=== PATIENT | female | born 1990 | race Caucasian/White ===

== ENCOUNTER 2016-03-22 22:37 | Emergency (ER) | payer MEDICAID ==
[2016-03-23 01:31] VITALS: BP 124/69
[2016-03-23] MEDS ORDERED: OXYCODONE-ACETAMINOPHEN 5-325 MG TABLET PO ONE (01:34)
--- NOTE | 2016-03-23 01:35 | ER Document Report ---
ED Oral Problem - General Chief Complaint: Toothache Stated Complaint: MOUTH PAIN Time seen by provider: 01:34 Mode of Arrival: Ambulatory Information source: Patient TRAVEL OUTSIDE OF THE [place] IN LAST 30 DAYS: No - HPI Patient complains to provider of: Toothache Onset: Other - 2 days Onset: Gradual Quality of pain: Achy Severity: Moderate Pain Level: 3 Context: Recent dental extractions Associated symptoms: Dental decay, Toothache Worsened by: Cold Relieved by: Nothing Similar symptoms previously: Yes Recently seen / treated by doctor/dentist: Yes Notes: Patient is a 25-year-old female presenting to the emergency room complaining of dental pain, states she had 2 teeth pulled approximately 2 days ago by her dentist, and now feels as though she has dry sockets in at least one of the areas of concern, denies any fevers, no drainage - Related Data Allergies/Adverse Reactions: aspirin Allergy (Mild, Verified 02/29/16 12:43) Hives ibuprofen Allergy (Mild, Verified 02/29/16 12:43) Hives tramadol Allergy (Mild, Verified 02/29/16 12:43) Hives Past Medical History - General Information source: Patient - Social History Smoking Status: Current Every Day Smoker Frequency of alcohol use: None Drug Abuse: None Family History: Reviewed & Not Pertinent Endocrine Medical History: Reports: Hx Diabetes Mellitus Type 1 - Insulin- dependent Renal/ Medical History: Reports: Hx Kidney Stones. Denies: Hx Peritoneal Dialysis Past Surgical History: Reports: Hx Cholecystectomy, Hx Tubal Ligation - Immunizations Hx Diphtheria, Pertussis, Tetanus Vaccination: Yes Review of Systems - Review of Systems Constitutional: No symptoms reported EENT: Dental problem Cardiovascular: No symptoms reported Respiratory: No symptoms reported Gastrointestinal: No symptoms reported Genitourinary: No symptoms reported Female Genitourinary: No symptoms reported Musculoskeletal: No symptoms reported Skin: No symptoms reported Hematologic/Lymphatic: No symptoms reported Neurological/Psychological: No symptoms reported -: Yes All other systems reviewed and negative Physical Exam - Vital signs Vitals: Temp Pulse Resp BP Pulse Ox 98.0 F 97 18 110/69 95 03/22/16 22:45 03/22/16 22:45 03/22/16 22:45 03/22/16 22:45 03/22/16 22:45 Interpretation: Normal - Notes Notes: - General General appearance: Appears well, Alert In distress: None - HEENT Head: Normocephalic, Atraumatic Eyes: Normal Conjunctiva: Normal Extraocular movements intact: Yes Eyelashes: Normal Pupils: PERRL - Respiratory Respiratory status: No respiratory distress - Cardiovascular Rhythm: Regular - Abdominal Inspection: Normal - Back Back: Normal - Extremities General upper extremity: Normal inspection General lower extremity: Normal inspection - Neurological Neuro grossly intact: Yes Orientation: AAOx4 [place] Coma Scale Eye Opening: Spontaneous Melita Coma Scale Verbal: Oriented Melita Coma Scale Motor: Obeys Commands [place] Coma Scale Total: 15 - Psychological Associated symptoms: Normal affect, Normal mood - Skin Skin Temperature: Warm Skin Moisture: Dry Skin Color: Normal - HEENT Mouth/Lips: Caries, Other - Poor dentition diffusely Teeth diagram: 1 - Recent dental extraction, small portion of bone visible, erythema with swelling Course - Re-evaluation Re-evalutation: 03/23/16 02:55 Patient with symptoms consistent with dry socket, she has a follow-up with her dentist on Friday, she was provided with pain medication for the interim and advised to return if symptoms worsen, patient acknowledges understanding and agreement with this plan - Vital Signs Vital signs: Temp Pulse Resp BP Pulse Ox 97.8 F 92 19 124/69 98 03/23/16 01:14 03/23/16 01:14 03/23/16 01:14 03/23/16 01:14 03/23/16 01:14 Discharge - Discharge Clinical Impression: Dry socket Condition: Stable Disposition: HOME, SELF-CARE Instructions: Toothache ([facility]), Oral Narcotic Medication ([facility]) Additional Instructions: Follow up with your dentist on Friday as scheduled. Return to the emergency room if symptoms worsen in any way. Prescriptions: Oxycodone HCl/Acetaminophen [Percocet 5-325 mg Tablet] 1 - 2 tab PO ASDIR PRN # 30 tablet PRN Reason: Referrals: PRAVIN WELSH, [Primary Care Provider] - Follow up as needed
== END 2016-03-23 02:07 | disposition home or self-care (01) ==
LOC: ER 22:37
DX: M27.3 Alveolitis of jaws (principal); K08.89 Other specified disorders of teeth and supporting structures; F17.210 Nicotine dependence, cigarettes, uncomplicated
CPT/HCPCS: 99282

== ENCOUNTER 2016-03-28 21:51 | Emergency (ER) | payer MEDICAID ==
[2016-03-28 21:56] VITALS: BP 119/72
--- NOTE | 2016-03-28 21:57 | ER Document Report ---
ED Medical Screen (RME) - General Stated Complaint: ABDOMINAL PAIN Time seen by provider: 21:55 Mode of Arrival: Ambulatory Information source: Patient Notes: 25-year-old female presents to ED for mid upper abdominal pain since 7 PM with nausea no vomiting or diarrhea. Last menstrual period 03/14/2016. Patient states the only time she's ever had this pain is when her glucose was elevated she is a type I diabetic. I have greeted and performed a rapid initial assessment of this patient. A comprehensive ED assessment and evaluation of the patient, analysis of test results and completion of medical decision making process will be conducted by an additional ED providers. TRAVEL OUTSIDE OF THE [place] IN LAST 30 DAYS: No - Related Data Allergies/Adverse Reactions: aspirin Allergy (Mild, Verified 02/29/16 12:43) Hives ibuprofen Allergy (Mild, Verified 02/29/16 12:43) Hives tramadol Allergy (Mild, Verified 02/29/16 12:43) Hives Past Medical History - Social History Family history: Reviewed & Not Pertinent Endocrine Medical History: Reports: Hx Diabetes Mellitus Type 1 - Insulin- dependent Renal/ Medical History: Reports: Hx Kidney Stones. Denies: Hx Peritoneal Dialysis Past Surgical History: Reports: Hx Cholecystectomy, Hx Tubal Ligation - Immunizations Hx Diphtheria, Pertussis, Tetanus Vaccination: Yes
[2016-03-28] MEDS ORDERED: ONDANSETRON 4 MG TAB.RAPDIS PO ONE (22:00)
[2016-03-28 22:22] LABS: ABSOLUTE BASOPHILS # (AUTO) 0.1 10^3/uL (0.0-0.2); ABSOLUTE EOSINOPHILS # (AUTO) 0.3 10^3/uL (0.0-0.6); ABSOLUTE LYMPHOCYTES (AUTO) 2.7 10^3/uL (0.5-4.7); ABSOLUTE MONOCYTES (AUTO) 0.4 10^3/uL (0.1-1.4); ABSOLUTE NEUT (AUTO) 4.6 10^3/uL (1.7-8.2); BASOPHILS % (AUTO) 1.4 % (0-2); EOSINOPHILS % (AUTO) 3.6 % (0-6); HEMATOCRIT 45.1 % (36.0-47.0); HGB HCT DIFFERENCE -0.1; LYMPHOCYTES % (AUTO) 33.5 % (13-45); MEAN CORPUSCULAR HEMOGLOBIN 29.4 pg (27.0-33.4); MEAN CORPUSCULAR HGB CONC 33.3 g/dL (32.0-36.0); MEAN CORPUSCULAR VOLUME 88 fl (80-97); MONOCYTES % (AUTO) 5.1 % (3-13); RED BLOOD COUNT 5.12 10^6/uL (3.72-5.28); RED CELL DISTRIBUTION WIDTH 14.6 % (11.5-14.0); SEGMENTED NEUTROPHILS % (AUTO) 56.4 % (42-78); WHITE BLOOD COUNT 8.2 10^3/uL (4.0-10.5)
[2016-03-28 22:24] LABS: APPEARANCE,URINE SLIGHTLY-CLOUDY; BILIRUBIN,URINE NEGATIVE (NEGATIVE); GLUCOSE, URINE >=500 mg/dL (NEGATIVE); KETONES,URINE TRACE mg/dL (NEGATIVE); LEUKOCYTE ESTERASE,URINE TRACE (NEGATIVE); NITRITE,URINE NEGATIVE (NEGATIVE); PROTEIN,URINE NEGATIVE (NEGATIVE); URINE SPECIFIC GRAVITY 1.043; UROBILINOGEN,URINE NEGATIVE mg/dL (<2.0)
[2016-03-28] MEDS ORDERED: NORMAL SALINE 1000 ML 1,000 ML IV PRN (22:29)
[2016-03-28 22:35] LABS: ALANINE AMINOTRANSFERASE 30 U/L (9-52); ALKALINE PHOSPHATASE 104 U/L (38-126); ANION GAP 10 (5-19); ASPARTATE AMINO TRANSFERASE 12 U/L (14-36); BILIRUBIN,TOTAL 0.4 mg/dL (0.2-1.3); BLOOD UREA NITROGEN 10 mg/dL (7-20); CALCIUM 8.9 mg/dL (8.4-10.2); CARBON DIOXIDE 27 mmol/L (22-30); CHLORIDE 101 mmol/L (98-107); GLUCOSE 289 mg/dL (75-110); LIPASE 83.8 U/L (23-300); POTASSIUM 4.2 mmol/L (3.6-5.0); SODIUM 137.7 mmol/L (137-145)
--- NOTE | 2016-03-28 22:57 | ER Document Report ---
ED Pediatric Illness - General Chief Complaint: Abdominal Pain Stated Complaint: ABDOMINAL PAIN Mode of Arrival: Ambulatory TRAVEL OUTSIDE OF THE [place] IN LAST 30 DAYS: No - Related Data Allergies/Adverse Reactions: aspirin Allergy (Mild, Verified 02/29/16 12:43) Hives ibuprofen Allergy (Mild, Verified 02/29/16 12:43) Hives tramadol Allergy (Mild, Verified 02/29/16 12:43) Hives Past Medical History - General Information source: Patient - Social History Smoking Status: Current Every Day Smoker Frequency of alcohol use: None Drug Abuse: None Family History: Reviewed & Not Pertinent Endocrine Medical History: Reports: Hx Diabetes Mellitus Type 1 - Insulin- dependent Renal/ Medical History: Reports: Hx Kidney Stones. Denies: Hx Peritoneal Dialysis Past Surgical History: Reports: Hx Cholecystectomy, Hx Tubal Ligation - Immunizations Hx Diphtheria, Pertussis, Tetanus Vaccination: Yes Physical Exam - Vital signs Vitals: Temp Pulse Resp BP Pulse Ox 98.2 F 88 16 119/72 99 03/28/16 21:54 03/28/16 21:54 03/28/16 21:54 03/28/16 21:54 03/28/16 21:54 Course - Vital Signs Vital signs: Temp Pulse Resp BP Pulse Ox 98.2 F 88 16 119/72 99 03/28/16 21:54 03/28/16 21:54 03/28/16 21:54 03/28/16 21:54 03/28/16 21:54 - Laboratory Result Diagrams: 03/28/16 22:05 03/28/16 22:05 Laboratory results interpreted by me: 03/28/16 03/28/16 03/28/16 22:05 22:05 22:05 RDW 14.6 H Creatinine 0.50 L Glucose 289 H AST 12 L Total Protein 6.0 L Urine Glucose (UA) >=500 H Urine Ketones TRACE H Urine Blood MODERATE H Ur Leukocyte Esterase TRACE H
--- NOTE | 2016-03-28 22:58 | ER Document Report ---
ED General - General Time seen by provider: 22:30 Mode of Arrival: Ambulatory Information source: Patient TRAVEL OUTSIDE OF THE [place] IN LAST 30 DAYS: No - HPI Onset: This evening Onset/Duration: Sudden <JASMEET RICARDO - Last Filed: 03/28/16 23:45> <NATHANIELJACE ANN - Last Filed: 03/29/16 01:40> - General Chief Complaint: Abdominal Pain Stated Complaint: ABDOMINAL PAIN Notes: Patient is a 25-year-old female presents to the emergency department with complaints of hypo-blood glucose level and abdominal pain. Patient is a history of cholecystectomy and type I diabetes mellitus. Patient states that her abdominal pain was onset at 19:00 this evening. Patient states states that she gets abdominal pain when she has high blood glucose levels. Patient also has vaginal discharge which she states is not new. Patient denies any nausea, vomiting, diarrhea, or dysuria. Patient's last menstrual period was 03/14/16. Patient is allergic to aspirin, ibuprofen, and tramadol. (JASMEET RICARDO) - Related Data Allergies/Adverse Reactions: aspirin Allergy (Mild, Verified 02/29/16 12:43) Hives ibuprofen Allergy (Mild, Verified 02/29/16 12:43) Hives tramadol Allergy (Mild, Verified 02/29/16 12:43) Hives Past Medical History - General Information source: Patient - Social History Smoking Status: Current Every Day Smoker Frequency of alcohol use: None Drug Abuse: None Family History: None Endocrine Medical History: Reports: Hx Diabetes Mellitus Type 1 - Insulin- dependent Renal/ Medical History: Reports: Hx Kidney Stones Past Surgical History: Reports: Hx Cholecystectomy, Hx Tubal Ligation - Immunizations Hx Diphtheria, Pertussis, Tetanus Vaccination: Yes <JASMEET RICARDO - Last Filed: 03/28/16 23:45> Review of Systems - Review of Systems Constitutional: No symptoms reported EENT: No symptoms reported Cardiovascular: No symptoms reported Respiratory: No symptoms reported Gastrointestinal: See HPI, Abdominal pain Genitourinary: No symptoms reported Female Genitourinary: No symptoms reported Musculoskeletal: No symptoms reported Skin: No symptoms reported Hematologic/Lymphatic: No symptoms reported Neurological/Psychological: No symptoms reported -: Yes All other systems reviewed and negative <JASMEET RICARDO - Last Filed: 03/28/16 23:45> Physical Exam - Vital signs Interpretation: Normal - General General appearance: Appears well, Alert In distress: Mild - HEENT Head: Normocephalic, Atraumatic Eyes: Normal Pupils: PERRL Mucous membranes: Normal - Respiratory Respiratory status: No respiratory distress Chest status: Nontender Breath sounds: Normal Chest palpation: Normal - Cardiovascular Rhythm: Regular Heart sounds: Normal auscultation Murmur: No - Abdominal Inspection: Normal Distension: No distension Bowel sounds: Normal Tenderness: Tender - mild epigastric tenderness to palpation Organomegaly: No organomegaly - Back Back: Normal, Nontender - Extremities General upper extremity: Normal inspection, Normal ROM, Normal strength General lower extremity: Normal inspection, Normal ROM, Normal strength - Neurological Neuro grossly intact: Yes Cognition: Normal Orientation: AAOx4 [place] Coma Scale Eye Opening: Spontaneous [place] Coma Scale Verbal: Oriented Melita Coma Scale Motor: Obeys Commands [place] Coma Scale Total: 15 Speech: Normal Sensory: Normal - Psychological Associated symptoms: Normal affect, Normal mood - Skin Skin Temperature: Warm Skin Moisture: Dry <JASMEET RICARDO - Last Filed: 03/28/16 23:45> Course - Laboratory Result Diagrams: 03/28/16 22:05 03/28/16 22:05 <JASMEET RICARDO - Last Filed: 03/28/16 23:45> - Laboratory Result Diagrams: 03/28/16 22:05 03/28/16 22:05 <JACE ARMSTRONG - Last Filed: 03/29/16 01:40> - Re-evaluation Re-evalutation: 03/29/16 Patient with no evidence for surgical abdomen. Blood work within normal limits. Patient is feeling better wishes to go home. She does not want fluids or anything else for nausea. Tolerating by mouth. Stable for discharge. Return if any worsening or concerning symptoms. (JACE ARMSTRONG) - Vital Signs Vital signs: Temp Pulse Resp BP Pulse Ox 98.2 F 88 16 119/72 99 03/28/16 21:54 03/28/16 21:54 03/28/16 21:54 03/28/16 21:54 03/28/16 21:54 (JASMEET RICARDO) (JACE ARMSTRONG) - Laboratory Laboratory results interpreted by wa: 03/28/16 03/28/16 03/28/16 22:05 22:05 22:05 RDW 14.6 H Creatinine 0.50 L Glucose 289 H AST 12 L Total Protein 6.0 L Urine Glucose (UA) >=500 H Urine Ketones TRACE H Urine Blood MODERATE H Ur Leukocyte Esterase TRACE H (JASMEET RICARDO) (JACE ARMSTRONG) Discharge <JASMEET RICARDO - Last Filed: 03/28/16 23:45> <JACE ARMSTRONG - Last Filed: 03/29/16 01:40> - Discharge Clinical Impression: Hyperglycemia Abdominal pain Qualifiers: Abdominal location: upper abdomen, unspecified Qualified Code(s): R10.10 - Upper abdominal pain, unspecified Condition: Stable Disposition: HOME, SELF-CARE Instructions: Abdominal Pain ([facility]), Hyperglycemia ([facility]) Additional Instructions: Please follow-up with your doctor tomorrow. Scribe Attestation: 03/29/16 01:40 I personally performed the services described in the documentation, reviewed and edited the documentation which was dictated to the scribe in my presence, and it accurately records my words and actions. (JACE ARMSTRONG) Scribe Documentation - Scribe Written by Scribadin:: Jasmeet Ricardo 00:15 03/29/16 acting as scribe for :: Nathaniel <JASMEET RICARDO - Last Filed: 03/28/16 23:45>
== END 2016-03-28 23:35 | disposition home or self-care (01) ==
LOC: ER 21:51
DX: E10.65 Type 1 diabetes mellitus with hyperglycemia (principal); R10.10 Upper abdominal pain, unspecified; N89.8 Other specified noninflammatory disorders of vagina; F17.210 Nicotine dependence, cigarettes, uncomplicated; Z98.890 Other specified postprocedural states
CPT/HCPCS: 99284; 36415; 82962; 83690; 84703; 85025; 80053; 81001; S0119

== ENCOUNTER 2016-04-02 16:35 | Emergency (ER) | payer MEDICAID ==
--- NOTE | 2016-04-02 16:57 | ER Document Report ---
ED Medical Screen (RME) - General Chief Complaint: Abdominal Pain Stated Complaint: ABDOMINAL PAIN Time seen by provider: 16:55 Mode of Arrival: Ambulatory Information source: Patient Notes: 25-year-old female presents to ED for right flank pain for the last week. States she's had nausea but no vomiting. She has a history of kidney stones. Last menstrual period 03/14/2016. I have greeted and performed a rapid initial assessment of this patient. A comprehensive ED assessment and evaluation of the patient, analysis of test results and completion of medical decision making process will be conducted by an additional ED providers. TRAVEL OUTSIDE OF THE [place] IN LAST 30 DAYS: No - Related Data Allergies/Adverse Reactions: aspirin Allergy (Mild, Verified 02/29/16 12:43) Hives ibuprofen Allergy (Mild, Verified 02/29/16 12:43) Hives tramadol Allergy (Mild, Verified 02/29/16 12:43) Hives Past Medical History - Social History Family history: Reviewed & Not Pertinent Endocrine Medical History: Reports: Hx Diabetes Mellitus Type 1 - Insulin- dependent Renal/ Medical History: Reports: Hx Kidney Stones. Denies: Hx Peritoneal Dialysis Past Surgical History: Reports: Hx Cholecystectomy, Hx Tubal Ligation - Immunizations Hx Diphtheria, Pertussis, Tetanus Vaccination: Yes Physical Exam - Vital signs Vitals: Temp Pulse Resp BP Pulse Ox 98.0 F 112 H 18 102/81 97 04/02/16 16:52 04/02/16 16:52 04/02/16 16:52 04/02/16 16:52 04/02/16 16:52 Course - Vital Signs Vital signs: Temp Pulse Resp BP Pulse Ox 98.0 F 112 H 18 102/81 97 04/02/16 16:52 04/02/16 16:52 04/02/16 16:52 04/02/16 16:52 04/02/16 16:52
[2016-04-02] MEDS ORDERED: ONDANSETRON 4 MG TAB.RAPDIS PO ONE (17:00)
[2016-04-02 17:31] LABS: ABSOLUTE BASOPHILS # (AUTO) 0.1 10^3/uL (0.0-0.2); ABSOLUTE EOSINOPHILS # (AUTO) 0.3 10^3/uL (0.0-0.6); ABSOLUTE LYMPHOCYTES (AUTO) 2.5 10^3/uL (0.5-4.7); ABSOLUTE MONOCYTES (AUTO) 0.7 10^3/uL (0.1-1.4); BASOPHILS % (AUTO) 0.6 % (0-2); EOSINOPHILS % (AUTO) 2.2 % (0-6); HEMATOCRIT 46.4 % (36.0-47.0); HEMOGLOBIN 14.9 g/dL (12.0-15.5); HGB HCT DIFFERENCE -1.7; LYMPHOCYTES % (AUTO) 20.1 % (13-45); MEAN CORPUSCULAR HEMOGLOBIN 28.3 pg (27.0-33.4); MEAN CORPUSCULAR HGB CONC 32.2 g/dL (32.0-36.0); MEAN CORPUSCULAR VOLUME 88 fl (80-97); MONOCYTES % (AUTO) 5.4 % (3-13); RED BLOOD COUNT 5.27 10^6/uL (3.72-5.28); RED CELL DISTRIBUTION WIDTH 14.3 % (11.5-14.0); SEGMENTED NEUTROPHILS % (AUTO) 71.7 % (42-78); WHITE BLOOD COUNT 12.5 10^3/uL (4.0-10.5)
[2016-04-02 17:42] LABS: APPEARANCE,URINE CLEAR; BILIRUBIN,URINE NEGATIVE (NEGATIVE); GLUCOSE, URINE >=500 mg/dL (NEGATIVE); KETONES,URINE 20 mg/dL (NEGATIVE); LEUKOCYTE ESTERASE,URINE SMALL (NEGATIVE); NITRITE,URINE NEGATIVE (NEGATIVE); PROTEIN,URINE NEGATIVE (NEGATIVE); URINE SPECIFIC GRAVITY 1.031; UROBILINOGEN,URINE NEGATIVE mg/dL (<2.0)
[2016-04-02 17:52] LABS: ALANINE AMINOTRANSFERASE 32 U/L (9-52); ALBUMIN 4.7 g/dL (3.5-5.0); ALKALINE PHOSPHATASE 104 U/L (38-126); ANION GAP 14 (5-19); ASPARTATE AMINO TRANSFERASE 12 U/L (14-36); BILIRUBIN,TOTAL 0.7 mg/dL (0.2-1.3); BLOOD UREA NITROGEN 11 mg/dL (7-20); CALCIUM 10.3 mg/dL (8.4-10.2); CARBON DIOXIDE 29 mmol/L (22-30); CHLORIDE 91 mmol/L (98-107); CREATININE RESULT 0.57 mg/dL (0.52-1.25); SODIUM 134.2 mmol/L (137-145); TOTAL PROTEIN 7.3 g/dL (6.3-8.2)
[2016-04-02 18:05] LABS: GLUCOSE 553 mg/dL (75-110)
[2016-04-02] MEDS ORDERED: NORMAL SALINE 1000 ML 1,000 ML IV ONE ×2 (18:51→20:44)
--- NOTE | 2016-04-02 19:09 | ER Document Report ---
ED GI/ - General Mode of Arrival: Ambulatory Information source: Patient TRAVEL OUTSIDE OF THE [place] IN LAST 30 DAYS: No - HPI Patient complains to provider of: Abdominal pain Onset: Other - 5 days ago Location: RUQ, Right flank Associated symptoms: Other - see above <MIGUEL FUENTES - Last Filed: 04/02/16 21:33> <NATHANIELJACE ANN - Last Filed: 04/03/16 03:03> - General Chief Complaint: Abdominal Pain Stated Complaint: ABDOMINAL PAIN Notes: 25 year old female with history of a cholecystectomy and type I diabetes presents to the ED complaining of abdominal pain that started 5 days ago. Patient was seen in the ED on 03/28/2016 complaining of abdominal pain, but according to [facility] report the patient's symptoms resolved and was discharged home. Patient states that she followed up with her primary care physician yesterday and was told to come to the ED if symptoms worsened. Patient is currently complaining of RUQ abdominal pain that radiates to the right flank. Patient denies pain when breathing or eating. Patient also denies vomiting or diarrhea. Patient is currently on Metformin, Lantus, and Novolog for her diabetes. (MIGUEL FUENTES) - Related Data Allergies/Adverse Reactions: aspirin Allergy (Mild, Verified 04/02/16 16:57) Hives ibuprofen Allergy (Mild, Verified 04/02/16 16:57) Hives tramadol Allergy (Mild, Verified 04/02/16 16:57) Hives Past Medical History - General Information source: Patient - Social History Smoking Status: Current Every Day Smoker Chew tobacco use (# tins/day): No Frequency of alcohol use: None Drug Abuse: None Family History: None Patient has suicidal ideation: No Patient has homicidal ideation: No Endocrine Medical History: Reports: Hx Diabetes Mellitus Type 1 - Insulin- dependent Renal/ Medical History: Reports: Hx Kidney Stones Past Surgical History: Reports: Hx Cholecystectomy, Hx Tubal Ligation - Immunizations Hx Diphtheria, Pertussis, Tetanus Vaccination: Yes <MIGUEL FUENTES - Last Filed: 04/02/16 21:33> Review of Systems - Review of Systems Constitutional: No symptoms reported EENT: No symptoms reported Cardiovascular: No symptoms reported Respiratory: No symptoms reported Gastrointestinal: See HPI, Abdominal pain - RUQ. denies: Diarrhea, Vomiting Genitourinary: See HPI, Flank pain - Right Female Genitourinary: No symptoms reported Musculoskeletal: No symptoms reported Skin: No symptoms reported Hematologic/Lymphatic: No symptoms reported Neurological/Psychological: No symptoms reported -: Yes All other systems reviewed and negative <MIGUEL FUENTES - Last Filed: 04/02/16 21:33> Physical Exam - Vital signs Interpretation: Normal - General General appearance: Alert In distress: None - HEENT Head: Normocephalic, Atraumatic Eyes: Normal Extraocular movements intact: Yes Pupils: PERRL Mucous membranes: Dry - Respiratory Respiratory status: No respiratory distress Breath sounds: Normal - Cardiovascular Rhythm: Regular Heart sounds: Normal auscultation - Abdominal Inspection: Normal Tenderness: Tender - Tenderness to palpation of the RUQ and right of the umbilicus - Back Back: CVA tenderness - right - Extremities General upper extremity: Normal inspection, Normal ROM General lower extremity: Normal inspection, Normal ROM - Neurological Neuro grossly intact: Yes Cognition: Normal Orientation: AAOx4 [place] Coma Scale Eye Opening: Spontaneous Melita Coma Scale Verbal: Oriented [place] Coma Scale Motor: Obeys Commands Melita Coma Scale Total: 15 Speech: Normal - Psychological Associated symptoms: Normal affect, Normal mood - Skin Skin Temperature: Warm Skin Moisture: Dry Skin Color: Normal <MIGUEL FUENTES - Last Filed: 04/02/16 21:33> <JACE ARMSTRONG - Last Filed: 04/03/16 03:03> - Vital signs Vitals: Temp Pulse Resp BP Pulse Ox 98.0 F 112 H 18 102/81 97 04/02/16 16:52 04/02/16 16:52 04/02/16 16:52 04/02/16 16:52 04/02/16 16:52 (MIGUEL FUENTES) (JACE ARMSTRONG) Course - Laboratory Result Diagrams: 04/02/16 17:00 04/02/16 17:00 <MIGUEL FUENTES - Last Filed: 04/02/16 21:33> - Laboratory Result Diagrams: 04/02/16 17:00 04/02/16 17:00 - Diagnostic Test Radiology reviewed: Reports reviewed <JACE ARMSTRONG - Last Filed: 04/03/16 03:03> - Re-evaluation Re-evalutation: 04/03/16 Patient is a 25-year-old female who comes in complaining of abdominal pain and some nausea. Patient initially felt better after medications and GI cocktail. Blood work within normal limits except for hyperglycemia which has resolved after fluids and insulin. The patient has insulin at home. I cannot find any source for infection. She has a nonsurgical abdomen with no acute findings on CT. The patient will be discharged home with Percocet as requested. Stable for discharge. Follow-up with PMD and GI. Stable for discharge home. (JACE ARMSTRONG) - Vital Signs Vital signs: Temp Pulse Resp BP Pulse Ox 98.0 F 78 18 108/60 98 04/03/16 00:49 04/03/16 00:49 04/03/16 00:49 04/03/16 00:49 04/03/16 00:49 (MIGUEL FUENTES) (JACE ARMSTRONG) - Laboratory Laboratory results interpreted by me: 04/02/16 04/02/16 04/02/16 17:00 17:00 17:00 WBC 12.5 H RDW 14.3 H Absolute Neutrophils 9.0 H Sodium 134.2 L Chloride 91 L Glucose 553 H* POC Glucose Calcium 10.3 H AST 12 L Urine Glucose (UA) >=500 H Urine Ketones 20 H Ur Leukocyte Esterase SMALL H 04/02/16 23:41 WBC RDW Absolute Neutrophils Sodium Chloride Glucose POC Glucose 256 H Calcium AST Urine Glucose (UA) Urine Ketones Ur Leukocyte Esterase (MIGUEL FUENTES) (JACE ARMSTRONG) Discharge <MIGUEL FUENTES - Last Filed: 04/02/16 21:33> <JACE ARMSTRONG - Last Filed: 04/03/16 03:03> - Discharge Clinical Impression: Upper abdominal pain, Hyperglycemia Vomiting Qualifiers: Vomiting type: unspecified Vomiting Intractability: non-intractable Nausea presence: with nausea Qualified Code(s): R11.2 - Nausea with vomiting, unspecified Gastritis Qualifiers: Gastritis type: unspecified gastritis Chronicity: acute Gastritis bleeding: without bleeding Qualified Code(s): K29.00 - Acute gastritis without bleeding Condition: Stable Disposition: HOME, SELF-CARE Instructions: Evaluation of Upper Abdominal Pain ([facility]), Gastritis ([facility]), Hyperglycemia ([facility]) Prescriptions: Famotidine 20 mg PO DAILY #30 tablet Omeprazole 20 mg PO DAILY #30 tablet. Sucralfate [Carafate 1 gm Tablet] 1 gm PO ACHS #30 tablet Forms: Return to Work Referrals: PRAVIN WELSH DO [Primary Care Provider] - Follow up tomorrow LONNIE MANZANARES MD [ACTIVE STAFF] - Follow up as needed Scribe Attestation: 04/03/16 03:03 I personally performed the services described in the documentation, reviewed and edited the documentation which was dictated to the scribe in my presence, and it accurately records my words and actions. (JACE ARMSTRONG) Scribe Documentation - Scribe Written by Andressa:: Andressa Nguyen, 04/02/2016, 19:49 acting as scribe for :: Nathaniel <MIGUEL FUENTES - Last Filed: 04/02/16 21:33>
[2016-04-02] MEDS ORDERED: MORPHINE SULFATE 10 MG/ML INJ IV ONE (19:43)
[2016-04-02] MEDS ORDERED: INSULIN REG, HUMAN 100 UNIT/ML 3 ML VIAL (PYX) IV ONE (20:44)
[2016-04-02] MEDS ORDERED: ONDANSETRON HCL INJ/PF 4 MG/2 ML SDV IV ONE (21:39)
[2016-04-02] MEDS ORDERED: FAMOTIDINE 20 MG TABLET PO ONE (23:03)
[2016-04-02] MEDS ORDERED: SUCRALFATE 1 GM TABLET PO ONE (23:03)
[2016-04-02] MEDS ORDERED: MAG HYDROX/AL HYDROX/SIMETH SUSP 30 ML UDCUP PO ONE (23:03)
[2016-04-03] MEDS ORDERED: OXYCODONE-ACETAMINOPHEN 5-325 MG TABLET PO ONE (00:53)
[2016-04-03 01:01] VITALS: BP 108/60
== END 2016-04-03 00:58 | disposition home or self-care (01) ==
LOC: ER 16:35
DX: R10.11 Right upper quadrant pain (principal); E10.65 Type 1 diabetes mellitus with hyperglycemia; R11.2 Nausea with vomiting, unspecified; K29.00 Acute gastritis without bleeding; Z79.899 Other long term (current) drug therapy; Z79.4 Long term (current) use of insulin; F17.210 Nicotine dependence, cigarettes, uncomplicated
CPT/HCPCS: 99284; 96360; 96361; 96374; 96375; 36415; 87086; 82962; 85025; 87088; 80053; 81001; 74177; J3490 ×3; S0119; J2270; J1815; J2405; J7030

== ENCOUNTER 2016-04-04 17:08 | Emergency (ER) | payer MEDICAID ==
--- NOTE | 2016-04-04 17:33 | ER Document Report ---
ED Medical Screen (RME) - General Stated Complaint: ABDOMINAL PAIN Mode of Arrival: Ambulatory Information source: Patient Notes: Patient presents to the emergency department with abdominal pain and vaginal swelling for 2 days. Reports n/v. Reports pain with void. Eyes history of MRSA TRAVEL OUTSIDE OF THE [place] IN LAST 30 DAYS: No - Related Data Allergies/Adverse Reactions: aspirin Allergy (Mild, Verified 04/02/16 16:57) Hives ibuprofen Allergy (Mild, Verified 04/02/16 16:57) Hives tramadol Allergy (Mild, Verified 04/02/16 16:57) Hives Past Medical History - Social History Family history: Reviewed & Not Pertinent Endocrine Medical History: Reports: Hx Diabetes Mellitus Type 1 - Insulin- dependent Renal/ Medical History: Reports: Hx Kidney Stones. Denies: Hx Peritoneal Dialysis Past Surgical History: Reports: Hx Cholecystectomy, Hx Tubal Ligation - Immunizations Hx Diphtheria, Pertussis, Tetanus Vaccination: Yes Physical Exam - Vital signs Vitals: Temp Pulse Resp BP Pulse Ox 97.9 F 86 14 110/65 98 04/04/16 17:20 04/04/16 17:20 04/04/16 17:20 04/04/16 17:20 04/04/16 17:20 Course - Vital Signs Vital signs: Temp Pulse Resp BP Pulse Ox 97.9 F 86 14 110/65 98 04/04/16 17:20 04/04/16 17:20 04/04/16 17:20 04/04/16 17:20 04/04/16 17:20
[2016-04-04 18:23] LABS: ABSOLUTE BASOPHILS # (AUTO) 0.1 10^3/uL (0.0-0.2); ABSOLUTE EOSINOPHILS # (AUTO) 0.3 10^3/uL (0.0-0.6); ABSOLUTE LYMPHOCYTES (AUTO) 2.9 10^3/uL (0.5-4.7); ABSOLUTE MONOCYTES (AUTO) 0.5 10^3/uL (0.1-1.4); ABSOLUTE NEUT (AUTO) 6.1 10^3/uL (1.7-8.2); BASOPHILS % (AUTO) 0.7 % (0-2); EOSINOPHILS % (AUTO) 2.7 % (0-6); HEMOGLOBIN 14.7 g/dL (12.0-15.5); HGB HCT DIFFERENCE -1.9; LYMPHOCYTES % (AUTO) 29.1 % (13-45); MEAN CORPUSCULAR HEMOGLOBIN 28.6 pg (27.0-33.4); MEAN CORPUSCULAR VOLUME 90 fl (80-97); MONOCYTES % (AUTO) 5.3 % (3-13); RED BLOOD COUNT 5.14 10^6/uL (3.72-5.28); RED CELL DISTRIBUTION WIDTH 14.4 % (11.5-14.0); SEGMENTED NEUTROPHILS % (AUTO) 62.2 % (42-78); WHITE BLOOD COUNT 9.8 10^3/uL (4.0-10.5)
[2016-04-04 18:42] LABS: APPEARANCE,URINE CLEAR; BILIRUBIN,URINE NEGATIVE (NEGATIVE); GLUCOSE, URINE >=500 mg/dL (NEGATIVE); KETONES,URINE 80 mg/dL (NEGATIVE); LEUKOCYTE ESTERASE,URINE SMALL (NEGATIVE); NITRITE,URINE NEGATIVE (NEGATIVE); PROTEIN,URINE NEGATIVE (NEGATIVE); URINE SPECIFIC GRAVITY 1.032; UROBILINOGEN,URINE NEGATIVE mg/dL (<2.0)
[2016-04-04 18:44] LABS: ALANINE AMINOTRANSFERASE 38 U/L (9-52); ALBUMIN 3.9 g/dL (3.5-5.0); ALKALINE PHOSPHATASE 96 U/L (38-126); ANION GAP 12 (5-19); ASPARTATE AMINO TRANSFERASE 11 U/L (14-36); BILIRUBIN,TOTAL 0.6 mg/dL (0.2-1.3); BLOOD UREA NITROGEN 9 mg/dL (7-20); CALCIUM 9.8 mg/dL (8.4-10.2); CARBON DIOXIDE 28 mmol/L (22-30); CHLORIDE 95 mmol/L (98-107); GLUCOSE 337 mg/dL (75-110); POTASSIUM 4.6 mmol/L (3.6-5.0); SODIUM 135.3 mmol/L (137-145); TOTAL PROTEIN 6.7 g/dL (6.3-8.2)
--- NOTE | 2016-04-04 19:23 | ER Document Report ---
ED General - General Chief Complaint: Vaginal Pain Stated Complaint: ABDOMINAL PAIN Time seen by provider: 19:10 Mode of Arrival: Ambulatory Information source: Patient Notes: 25-year-old female with 2 day history of vaginal itching and white discharge. The patient also is complaining about bilateral diffuse abdominal pain with intermittent nausea and vomiting and says that is typical for ovarian cysts and is a problem that she's had for sometime. She's had several recent emergency department visits and had a CT abdomen pelvis 2 days ago that did show ovarian cyst. She reports she is not having vaginal complaints on her last visit. Does report some dysuria which she thinks she might be worse than what she had a few days ago. She denies fever, chills, cough, shortness breath, chest pain, or upper back pain. Physical Exam: General: Alert, appears well. HEENT: Normocephalic. Atraumatic. PERRLA. Extraocular movements intact. Oropharynx clear. Neck: Supple. Non-tender. Respiratory: No respiratory distress. Clear and equal breath sounds bilaterally. Cardiovascular: Regular rate and rhythm. Abdominal: Normal Inspection. Soft, minimal diffuse tenderness no guarding rebound rigidity no distension. Normal Bowel Sounds. Back: Non-tender. No deformity or step off. Extremities: Moves all four extremities. Upper extremities: Normal inspection. Non-tender. Normal color. Normal ROM. Normal temperature. Lower extremities: Normal inspection. Non-tender. No edema. Normal color. Normal ROM. Normal temperature. Neurological: Speech clear mentation normal Psychological: Normal affect. Normal Mood. Skin: Warm. Dry. Normal color. TRAVEL OUTSIDE OF THE [place] IN LAST 30 DAYS: No - Related Data Allergies/Adverse Reactions: aspirin Allergy (Mild, Verified 04/02/16 16:57) Hives ibuprofen Allergy (Mild, Verified 04/02/16 16:57) Hives tramadol Allergy (Mild, Verified 04/02/16 16:57) Hives Past Medical History - General Information source: Patient - Social History Smoking Status: Current Every Day Smoker Chew tobacco use (# tins/day): No Frequency of alcohol use: Occasional Drug Abuse: None Family History: None Patient has suicidal ideation: No Patient has homicidal ideation: No Endocrine Medical History: Reports: Hx Diabetes Mellitus Type 1 - Insulin- dependent Renal/ Medical History: Reports: Hx Kidney Stones. Denies: Hx Peritoneal Dialysis Past Surgical History: Reports: Hx Cholecystectomy, Hx Tubal Ligation - Immunizations Hx Diphtheria, Pertussis, Tetanus Vaccination: Yes Review of Systems - Review of Systems Constitutional: denies: Chills, Fever EENT: denies: Ear pain, Throat pain Cardiovascular: denies: Chest pain Respiratory: denies: Cough, Short of breath Gastrointestinal: See HPI Genitourinary: Burning Female Genitourinary: Vaginal discharge Musculoskeletal: Back pain Hematologic/Lymphatic: denies: Swollen glands Neurological/Psychological: denies: Weakness, Numbness Physical Exam - Vital signs Vitals: Temp Pulse Resp BP Pulse Ox 97.9 F 86 14 110/65 98 04/04/16 17:20 04/04/16 17:20 04/04/16 17:20 04/04/16 17:20 04/04/16 17:20 Course - Re-evaluation Re-evalutation: 04/04/16 20:30 Wet prep and urinalysis results reviewed. I'm inclined to treat patient both for UTI and for bacterial vaginosis given her underlying diabetes and propensity to develop infections. She will be given number for [facility] follow-up - Vital Signs Vital signs: Temp Pulse Resp BP Pulse Ox 97.4 F 83 16 112/66 99 04/04/16 19:13 04/04/16 19:13 04/04/16 19:13 04/04/16 19:13 04/04/16 19:13 - Laboratory Result Diagrams: 04/04/16 18:02 04/04/16 18:02 Laboratory results interpreted by me: 04/04/16 04/04/16 04/04/16 18:02 18:02 18:02 RDW 14.4 H Sodium 135.3 L Chloride 95 L Creatinine 0.50 L Glucose 337 H AST 11 L Urine Glucose (UA) >=500 H Urine Ketones 80 H Urine Blood MODERATE H Ur Leukocyte Esterase SMALL H 04/04/16 20:30 Discharge - Discharge Clinical Impression: Bacterial vaginosis UTI (urinary tract infection) Qualifiers: Urinary tract infection type: site unspecified Hematuria presence: without hematuria Qualified Code(s): N39.0 - Urinary tract infection, site not specified Condition: Stable Disposition: HOME, SELF-CARE Instructions: Urinary Tract Infection ([facility]) Additional Instructions: Vaginosis, Bacterial Your exam shows you have bacterial vaginosis. This condition is due to an overgrowth of bacteria in the vagina. Symptoms may include vaginal itching or pain, a smelly discharge, and sometimes burning with urination. Normally this is not transmitted by sexual contact. Vaginosis can be treated with oral or topical antibiotics. Metronidazole ( Flagyl) pills are usually effective. Topical vaginal creams include Cleocin and Metro-Gel. You should avoid sexual contact until your symptoms are all better. Call the doctor if you develop pelvic pain, fever, or problems with urination, or if you don't improve as expected. Prescriptions: Cephalexin Monohydrate [Keflex 500 mg Capsule] 500 mg PO BID #20 capsule Metronidazole [Flagyl 500 mg Tablet] 500 mg PO BID #14 tablet Referrals: JERAMY DEAN MD [ACTIVE STAFF] - Follow up as needed
[2016-04-04 19:49] LABS: CHLAM PCR NOT DETECTED (NOT DETECT)
[2016-04-04 21:10] VITALS: BP 107/56
== END 2016-04-04 21:00 | disposition home or self-care (01) ==
LOC: ER 17:08
DX: N76.0 Acute vaginitis (principal); N39.0 Urinary tract infection, site not specified; R10.2 Pelvic and perineal pain; R10.9 Unspecified abdominal pain
CPT/HCPCS: 36415; 80053; 81001; 84703; 85025; 87210; 87491; 87591; 99283

== ENCOUNTER 2016-04-11 16:43 | Emergency (ER) | payer MEDICAID ==
[2016-04-11] MEDS ORDERED: ONDANSETRON 4 MG TAB.RAPDIS PO ONE (17:30)
[2016-04-11] MEDS ORDERED: HYDROCODONE/ACETAMINOPHEN 5-325 MG TABLET PO ONE (17:30)
--- NOTE | 2016-04-11 17:31 | ER Document Report ---
ED Medical Screen (RME) - General Chief Complaint: Abdominal Pain Stated Complaint: ABDOMINAL PAIN Mode of Arrival: Ambulatory Information source: Patient Notes: 25-year-old female presents to the emergency department complaining of left lower abdominal pain since this morning. Reports associated nausea and vomiting. I have greeted and performed a rapid initial assessment of this patient. A comprehensive ED assessment and evaluation of the patient, analysis of test results and completion of the medical decision making process will be conducted by additional ED providers. TRAVEL OUTSIDE OF THE [place] IN LAST 30 DAYS: No - Related Data Allergies/Adverse Reactions: aspirin Allergy (Mild, Verified 04/11/16 17:28) Hives ibuprofen Allergy (Mild, Verified 04/11/16 17:28) Hives tramadol Allergy (Mild, Verified 04/11/16 17:28) Hives Past Medical History - Social History Chew tobacco use (# tins/day): No Frequency of alcohol use: None Drug Abuse: None Family history: Reviewed & Not Pertinent Endocrine Medical History: Reports: Hx Diabetes Mellitus Type 1 - Insulin- dependent Renal/ Medical History: Reports: Hx Kidney Stones. Denies: Hx Peritoneal Dialysis Past Surgical History: Reports: Hx Cholecystectomy, Hx Tubal Ligation - Immunizations Hx Diphtheria, Pertussis, Tetanus Vaccination: Yes Physical Exam - Vital signs Vitals: Temp Pulse Resp BP Pulse Ox 98.3 F 104 H 20 113/63 97 04/11/16 17:11 04/11/16 17:11 04/11/16 17:11 04/11/16 17:11 04/11/16 17:11 - General General appearance: Alert In distress: None - Respiratory Respiratory status: No respiratory distress - Cardiovascular Pulses: Normal: Radial Normal capillary refill: Yes Course - Vital Signs Vital signs: Temp Pulse Resp BP Pulse Ox 98.3 F 104 H 20 113/63 97 04/11/16 17:11 04/11/16 17:11 04/11/16 17:11 04/11/16 17:11 04/11/16 17:11
[2016-04-11 18:14] LABS: ABSOLUTE BASOPHILS # (AUTO) 0.1 10^3/uL (0.0-0.2); ABSOLUTE EOSINOPHILS # (AUTO) 0.2 10^3/uL (0.0-0.6); ABSOLUTE LYMPHOCYTES (AUTO) 2.3 10^3/uL (0.5-4.7); ABSOLUTE MONOCYTES (AUTO) 0.7 10^3/uL (0.1-1.4); ABSOLUTE NEUT (AUTO) 6.3 10^3/uL (1.7-8.2); BASOPHILS % (AUTO) 0.9 % (0-2); EOSINOPHILS % (AUTO) 2.5 % (0-6); HEMATOCRIT 45.9 % (36.0-47.0); HEMOGLOBIN 15.5 g/dL (12.0-15.5); HGB HCT DIFFERENCE 0.6; LYMPHOCYTES % (AUTO) 23.7 % (13-45); MEAN CORPUSCULAR HEMOGLOBIN 29.3 pg (27.0-33.4); MEAN CORPUSCULAR HGB CONC 33.7 g/dL (32.0-36.0); MEAN CORPUSCULAR VOLUME 87 fl (80-97); MONOCYTES % (AUTO) 7.4 % (3-13); RED BLOOD COUNT 5.27 10^6/uL (3.72-5.28); RED CELL DISTRIBUTION WIDTH 14.5 % (11.5-14.0); SEGMENTED NEUTROPHILS % (AUTO) 65.5 % (42-78); WHITE BLOOD COUNT 9.7 10^3/uL (4.0-10.5)
[2016-04-11 18:23] LABS: ALANINE AMINOTRANSFERASE 25 U/L (9-52); ALBUMIN 4.3 g/dL (3.5-5.0); ALKALINE PHOSPHATASE 96 U/L (38-126); ANION GAP 12 (5-19); ASPARTATE AMINO TRANSFERASE 11 U/L (14-36); BILIRUBIN,TOTAL 0.5 mg/dL (0.2-1.3); BLOOD UREA NITROGEN 14 mg/dL (7-20); CALCIUM 9.8 mg/dL (8.4-10.2); CARBON DIOXIDE 25 mmol/L (22-30); CHLORIDE 97 mmol/L (98-107); CREATININE RESULT 0.53 mg/dL (0.52-1.25); LIPASE 144.9 U/L (23-300); POTASSIUM 4.5 mmol/L (3.6-5.0); SODIUM 133.6 mmol/L (137-145); TOTAL PROTEIN 6.6 g/dL (6.3-8.2)
[2016-04-11 18:29] LABS: APPEARANCE,URINE CLEAR; BILIRUBIN,URINE NEGATIVE (NEGATIVE); GLUCOSE, URINE >=500 mg/dL (NEGATIVE); KETONES,URINE TRACE mg/dL (NEGATIVE); LEUKOCYTE ESTERASE,URINE TRACE (NEGATIVE); NITRITE,URINE NEGATIVE (NEGATIVE); PROTEIN,URINE NEGATIVE (NEGATIVE); URINE SPECIFIC GRAVITY 1.037; UROBILINOGEN,URINE NEGATIVE mg/dL (<2.0)
[2016-04-11 18:33] LABS: GLUCOSE 466 mg/dL (75-110)
[2016-04-11] MEDS ORDERED: NORMAL SALINE 1000 ML 1,000 ML IV ONE (18:48)
[2016-04-11] MEDS ORDERED: INSULIN REG, HUMAN 100 UNIT/ML 3 ML VIAL (PYX) SUBCUT ONE (21:41)
[2016-04-11] MEDS ORDERED: OXYCODONE-ACETAMINOPHEN 5-325 MG TABLET PO ONE (22:51)
--- NOTE | 2016-04-11 22:55 | ER Document Report ---
ED General - General Chief Complaint: Abdominal Pain Stated Complaint: ABDOMINAL PAIN Mode of Arrival: Ambulatory Notes: Patient is a 25-year-old female with past medical history of insulin-dependent diabetes and chronic abdominal pain who presents with left flank pain. This is her 16th visit to the emergency department moving to the area at the end of January 2016. She has had a CT her abdomen and pelvis as well as a renal ultrasound both of which have been unremarkable with exception of showing ovarian cysts. Patient complains today of primarily left flank pain without dysuria. Describes the pain as a constant, severe pain. States she's been trying ibuprofen at home which has caused a rash and not provided any pain relief. States this feels similar to prior episodes of pain. Admits to having daily abdominal pain similar to today's presentation. She is not have any vaginal bleeding or discharge. She has not seen a primary care physician regarding today's complaints. Nothing improves or worsens her pain. TRAVEL OUTSIDE OF THE [place] IN LAST 30 DAYS: No - Related Data Allergies/Adverse Reactions: aspirin Allergy (Mild, Verified 04/11/16 17:28) Hives ibuprofen Allergy (Mild, Verified 04/11/16 17:28) Hives tramadol Allergy (Mild, Verified 04/11/16 17:28) Hives Past Medical History - General Information source: Patient - Social History Smoking Status: Current Every Day Smoker Chew tobacco use (# tins/day): No Frequency of alcohol use: None Drug Abuse: None Lives with: Family Family History: Reviewed & Not Pertinent Patient has suicidal ideation: No Patient has homicidal ideation: No Endocrine Medical History: Reports: Hx Diabetes Mellitus Type 1 - Insulin- dependent Renal/ Medical History: Reports: Hx Kidney Stones. Denies: Hx Peritoneal Dialysis Past Surgical History: Reports: Hx Cholecystectomy, Hx Tubal Ligation - Immunizations Hx Diphtheria, Pertussis, Tetanus Vaccination: Yes Review of Systems - Review of Systems Notes: Constitutional: Negative for fever. HENT: Negative for sore throat. Eyes: Negative for visual changes. Cardiovascular: Negative for chest pain. Respiratory: Negative for shortness of breath. Gastrointestinal: Positive for abdominal pain, negative for vomiting or diarrhea. Genitourinary: Negative for dysuria. Musculoskeletal: Negative for back pain. Skin: Negative for rash. Neurological: Negative for headaches, weakness or numbness. 10 point ROS negative except as marked above and in HPI. Physical Exam - Vital signs Vitals: Temp Pulse Resp BP Pulse Ox 98.3 F 104 H 20 113/63 97 04/11/16 17:11 04/11/16 17:11 04/11/16 17:11 04/11/16 17:11 04/11/16 17:11 Interpretation: Tachycardic Notes: PHYSICAL EXAMINATION: GENERAL: Well-appearing, well-nourished and in no acute distress. HEAD: Atraumatic, normocephalic. EYES: Pupils equal round and reactive to light, extraocular movements intact, sclera anicteric, conjunctiva are normal. ENT: nares patent, oropharynx clear without exudates. Moist mucous membranes. NECK: Normal range of motion, supple without lymphadenopathy LUNGS: Breath sounds clear to auscultation bilaterally and equal. No wheezes rales or rhonchi. HEART: Regular rate and rhythm without murmurs ABDOMEN: Soft, nontender, normoactive bowel sounds. No guarding, no rebound. No masses appreciated. EXTREMITIES: Normal range of motion, no pitting or edema. No cyanosis. NEUROLOGICAL: No focal neurological deficits. Moves all extremities spontaneously and on command. PSYCH: Normal mood, normal affect. SKIN: Warm, Dry, normal turgor, no rashes or lesions noted. Course - Re-evaluation Re-evalutation: 04/11/16 22:52 Patient presents with recurrence of left upper quadrant and left lower quadrant abdominal pain. This is her 16th visit to the emergency department since she moved here in January 2016. She has been seen repeatedly for abdominal pain the last 2 weeks and had both an ultrasound and a CT scan of her abdomen and pelvis which showed ovarian cysts but were otherwise unremarkable. States that this feels similar to her prior cyst ruptures. Her abdominal exam is completely benign without any focal tenderness, rebound or guarding. Her vitals are within normal limits at the time of my assessment without tachycardia or hypotension. Based on exam and history do not suspect a tubo- ovarian abscess, ectopic , appendicitis, bowel obstruction, mesenteric ischemia, or ovarian torsion.patient did have hyperglycemia without evidence of diabetic ketoacidosis at time of arrival. This is similar to prior presentations. Her glucose was treated with a dose of subcutaneous insulin. At this time will discharge with return precautions and follow-up recommendations. Verbal discharge instructions given a the bedside and opportunity for questions given. Medication warnings reviewed. Patient is in agreement with this plan and has verbalized understanding of return precautions and the need for primary care follow-up in the next 24-72 hours. - Vital Signs Vital signs: Temp Pulse Resp BP Pulse Ox 98.2 F 77 16 128/77 H 100 04/12/16 00:19 04/12/16 00:19 04/12/16 00:19 04/12/16 00:19 04/12/16 00:19 - Laboratory Result Diagrams: 04/11/16 17:50 04/11/16 17:50 Laboratory results interpreted by me: 04/11/16 04/11/16 04/11/16 17:50 17:50 17:52 RDW 14.5 H Sodium 133.6 L Chloride 97 L Glucose 466 H* POC Glucose AST 11 L Urine Glucose (UA) >=500 H Urine Ketones TRACE H Urine Blood SMALL H Ur Leukocyte Esterase TRACE H 04/11/16 23:13 RDW Sodium Chloride Glucose POC Glucose 426 H* AST Urine Glucose (UA) Urine Ketones Urine Blood Ur Leukocyte Esterase Discharge - Discharge Clinical Impression: Chronic abdominal pain Condition: Fair Disposition: HOME, SELF-CARE Additional Instructions: You have been seen in the Emergency Department (ED) for abdominal pain. Your evaluation did not identify a clear cause of your symptoms but was generally reassuring. Please follow up with your doctor as soon as possible regarding today's emergent visit and the symptoms that are bothering you. Return to the ED if your abdominal pain worsens or fails to improve, you develop bloody vomiting, bloody diarrhea, you are unable to tolerate fluids due to vomiting, fever greater than 101, or other symptoms that concern you. Prescriptions: Hyoscyamine Sulfate [Levsin-Sl] 0.125 mg SL Q12HP PRN #[id number] tab.subl PRN Reason: Referrals: PRAVIN WELSH DO [Primary Care Provider] - Follow up in 3-5 days
[2016-04-12 00:37] VITALS: BP 128/77
== END 2016-04-12 00:10 | disposition home or self-care (01) ==
LOC: ER 16:43
DX: G89.29 Other chronic pain (principal); R10.12 Left upper quadrant pain; R10.32 Left lower quadrant pain; R00.0 Tachycardia, unspecified; E10.65 Type 1 diabetes mellitus with hyperglycemia; Z87.442 Personal history of urinary calculi; Z90.49 Acquired absence of other specified parts of digestive tract; Z98.51 Tubal ligation status
CPT/HCPCS: 99284; 96360; 36415; 82962; 83690; 85025; 81025; 80053; 81001; S0119; J1815; J7030

== ENCOUNTER 2016-04-19 17:57 | Emergency (ER) | payer MEDICAID ==
--- NOTE | 2016-04-19 18:35 | ER Document Report ---
ED Medical Screen (RME) - General Stated Complaint: COUGH/DIFFICULTY BREATHING Notes: onset yesterday chest congestion, cough, body aches, chills, vomiting from coughing Did not receive a flu vaccine this year. I have greeted and performed a rapid initial assessment of this patient. A comprehensive ED assessment and evaluation of the patient, analysis of test results and completion of the medical decision making process will be conducted by additional ED providers. TRAVEL OUTSIDE OF THE [place] IN LAST 30 DAYS: No - Related Data Allergies/Adverse Reactions: aspirin Allergy (Mild, Verified 04/19/16 18:33) Hives ibuprofen Allergy (Mild, Verified 04/19/16 18:33) Hives tramadol Allergy (Mild, Verified 04/19/16 18:33) Hives Past Medical History - Social History Family history: Reviewed & Not Pertinent Endocrine Medical History: Reports: Hx Diabetes Mellitus Type 1 - Insulin- dependent Renal/ Medical History: Reports: Hx Kidney Stones. Denies: Hx Peritoneal Dialysis Past Surgical History: Reports: Hx Cholecystectomy, Hx Tubal Ligation - Immunizations Hx Diphtheria, Pertussis, Tetanus Vaccination: Yes Physical Exam - Vital signs Vitals: Temp Pulse Resp BP Pulse Ox 98.8 F 99 20 103/78 98 04/19/16 18:29 04/19/16 18:29 04/19/16 18:29 04/19/16 18:29 04/19/16 18:29 Course - Vital Signs Vital signs: Temp Pulse Resp BP Pulse Ox 98.8 F 99 20 103/78 98 04/19/16 18:29 04/19/16 18:29 04/19/16 18:29 04/19/16 18:29 04/19/16 18:29
[2016-04-19] MEDS ORDERED: NORMAL SALINE 1000 ML 1,000 ML IV ONE (21:00)
[2016-04-19] MEDS ORDERED: IPRATROPIUM/ALBUTEROL 0.5-2.5 MG/3 ML AMPUL NEB ONE (21:01)
[2016-04-19] MEDS ORDERED: METHYLPREDNISOLONE INJ 125 MG/2 ML SDV IV ONE (21:01)
--- NOTE | 2016-04-19 21:03 | ER Document Report ---
ED General - General Mode of Arrival: Ambulatory Information source: Patient TRAVEL OUTSIDE OF THE [place] IN LAST 30 DAYS: No - HPI Onset: Other - see HPI notes Associated symptoms: Chest pain, Productive cough <JASMEET RICARDO - Last Filed: 04/19/16 21:51> <NATHANIELJACE LUCA - Last Filed: 04/19/16 22:52> - General Chief Complaint: Flu Symptoms Stated Complaint: COUGH/DIFFICULTY BREATHING Notes: Patient is a 25-year-old female presenting to emergency department with multiple cold like symptoms. Patient states that she has cough, difficulty breathing with some chest congestion, sore throat and some vomiting. Patient states that she has diabetes mellitus type I and that her blood glucose level has been in the 400s today. Patient told triage that her kids have gotten her sick. Patient states she's been vomiting from her coughing. Patient states that she has had vomiting and chest pain due to coughing. Patient did not receive flu shot this year. Patient states that she takes metformin, Lantus, and NovoLog for her diabetes mellitus. Patient states she was diagnosed with diabetes mellitus in September. Patient is allergic to aspirin, ibuprofen, and tramadol. (JASMEET RICARDO) - Related Data Allergies/Adverse Reactions: aspirin Allergy (Mild, Verified 04/19/16 18:33) Hives ibuprofen Allergy (Mild, Verified 04/19/16 18:33) Hives tramadol Allergy (Mild, Verified 04/19/16 18:33) Hives Past Medical History - General Information source: Patient - Social History Smoking Status: Never Smoker Chew tobacco use (# tins/day): No Frequency of alcohol use: None Drug Abuse: None Family History: None Patient has suicidal ideation: No Patient has homicidal ideation: No Endocrine Medical History: Reports: Hx Diabetes Mellitus Type 1 - Insulin- dependent, metformin, lantis, and novalog Renal/ Medical History: Reports: Hx Kidney Stones Past Surgical History: Reports: Hx Cholecystectomy, Hx Tubal Ligation - Immunizations Hx Diphtheria, Pertussis, Tetanus Vaccination: Yes <JASMEET RICARDO - Last Filed: 04/19/16 21:51> Review of Systems - Review of Systems Constitutional: No symptoms reported EENT: See HPI, Nose congestion, Throat pain Cardiovascular: See HPI, Chest pain Respiratory: See HPI, Cough, Wheezing Gastrointestinal: See HPI, Nausea, Vomiting Genitourinary: No symptoms reported Female Genitourinary: No symptoms reported Musculoskeletal: No symptoms reported Skin: No symptoms reported Hematologic/Lymphatic: No symptoms reported Neurological/Psychological: No symptoms reported -: Yes All other systems reviewed and negative <JASMEET RICARDO - Last Filed: 04/19/16 21:51> Physical Exam - Vital signs Interpretation: Hypotensive - General General appearance: Alert In distress: Mild - HEENT Head: Normocephalic, Atraumatic Eyes: Normal Pupils: PERRL Nasal: Clear rhinorrhea Mucous membranes: Dry Pharynx: Erythema - to oropharynx - Respiratory Respiratory status: No respiratory distress Chest status: Nontender Breath sounds: Productive cough, Wheezing - bilaterally Chest palpation: Normal - Cardiovascular Rhythm: Regular Heart sounds: Normal auscultation Murmur: No - Abdominal Inspection: Normal Distension: No distension Bowel sounds: Normal Tenderness: Nontender Organomegaly: No organomegaly - Back Back: Normal, Nontender - Extremities General upper extremity: Normal inspection, Normal ROM, Normal strength General lower extremity: Normal inspection, Normal ROM, Normal strength - Neurological Neuro grossly intact: Yes Cognition: Normal Orientation: AAOx4 Melita Coma Scale Eye Opening: Spontaneous Melita Coma Scale Verbal: Oriented Melita Coma Scale Motor: Obeys Commands Moffat Coma Scale Total: 15 Speech: Normal - Psychological Associated symptoms: Normal affect, Normal mood - Skin Skin Temperature: Warm Skin Moisture: Dry <JASMEET RICARDO - Last Filed: 04/19/16 21:51> Course - Laboratory Result Diagrams: 04/19/16 21:17 04/19/16 21:17 <JASMEET RICARDO - Last Filed: 04/19/16 21:51> - Laboratory Result Diagrams: 04/19/16 21:17 04/19/16 21:17 - Diagnostic Test Radiology reviewed: Reports reviewed <JACE ARMSTRONG - Last Filed: 04/19/16 22:52> - Re-evaluation Re-evalutation: 04/19/16 Patient is a 25-year-old female who comes in with cough, congestion, and sore throat. Influenza screen is negative. Patient with no pneumonia on chest x- ray. Patient is dehydrated. She is been given fluids. Patient has been treated for an asthma exacerbation with DuoNeb and steroids. Patient is on insulin and knows how to do a sliding scale at home. States that she did not feel like doing it today because she was sick but states that she will use her insulin when she goes home tonight. Patient does not appear in any acidosis is not hypoxic. She is instructed to take medications over the counter and use albuterol inhaler as needed for difficulty breathing. Stable for discharge home. Return immediately if any worsening or concerning symptoms. (JACE ARMSTRONG) - Vital Signs Vital signs: Temp Pulse Resp BP Pulse Ox 98.8 F 99 20 103/78 98 04/19/16 18:29 04/19/16 18:29 04/19/16 18:29 04/19/16 18:29 04/19/16 18:29 (JASMEET RICARDO) (JACE ARMSTRONG) - Laboratory Laboratory results interpreted by me: 04/19/16 04/19/16 04/19/16 21:17 21:17 21:29 RDW 14.2 H Lymphocytes % 10.4 L Sodium 132.3 L Creatinine 0.49 L Glucose 420 H* Urine Glucose (UA) >=500 H Urine Ketones 80 H Urine Ascorbic Acid 20 H (JACE ARMSTRONG) Discharge <JASMEET RICARDO - Last Filed: 04/19/16 21:51> <JACE ARMSTRONG - Last Filed: 04/19/16 22:52> - Discharge Clinical Impression: Dehydration, Hyperglycemia Upper respiratory infection Qualifiers: URI type: unspecified URI Qualified Code(s): J06.9 - Acute upper respiratory infection, unspecified Condition: Stable Disposition: HOME, SELF-CARE Instructions: Upper Respiratory Illness ([facility]), Hyperglycemia ([facility]), Dehydration ([facility]) Forms: Return to Work Referrals: PRAVIN WELSH DO [Primary Care Provider] - 04/22/16 Scribe Attestation: 04/19/16 22:52 I personally performed the services described in the documentation, reviewed and edited the documentation which was dictated to the scribe in my presence, and it accurately records my words and actions. (JACE ARMSTRONG) Scribe Documentation - Scribe Written by Scribe:: Jasmeet Ricardo 04/19/16 21:45 acting as scribe for :: Nathaniel <JASMEET RICARDO - Last Filed: 04/19/16 21:51>
[2016-04-19] MEDS ORDERED: INSULIN REG, HUMAN 100 UNIT/ML 3 ML VIAL (PYX) IV ONE ×2 (21:21→22:34)
[2016-04-19 21:28] LABS: ABSOLUTE EOSINOPHILS # (AUTO) 0.1 10^3/uL (0.0-0.6); ABSOLUTE LYMPHOCYTES (AUTO) 0.6 10^3/uL (0.5-4.7); ABSOLUTE MONOCYTES (AUTO) 0.6 10^3/uL (0.1-1.4); ABSOLUTE NEUT (AUTO) 4.2 10^3/uL (1.7-8.2); BASOPHILS % (AUTO) 0.5 % (0-2); EOSINOPHILS % (AUTO) 1.2 % (0-6); HEMATOCRIT 44.8 % (36.0-47.0); HEMOGLOBIN 15.2 g/dL (12.0-15.5); HGB HCT DIFFERENCE 0.8; LYMPHOCYTES % (AUTO) 10.4 % (13-45); MEAN CORPUSCULAR HEMOGLOBIN 29.6 pg (27.0-33.4); MEAN CORPUSCULAR HGB CONC 33.8 g/dL (32.0-36.0); MEAN CORPUSCULAR VOLUME 88 fl (80-97); MONOCYTES % (AUTO) 10.6 % (3-13); RED BLOOD COUNT 5.13 10^6/uL (3.72-5.28); RED CELL DISTRIBUTION WIDTH 14.2 % (11.5-14.0); SEGMENTED NEUTROPHILS % (AUTO) 77.3 % (42-78); WHITE BLOOD COUNT 5.4 10^3/uL (4.0-10.5)
[2016-04-19] MEDS ORDERED: MORPHINE SULFATE 10 MG/ML INJ IV ONE (21:36)
[2016-04-19] MEDS ORDERED: LIDOCAINE 2% VISCOUS SOLN 20 ML UDCUP PO ONE (21:36)
[2016-04-19 21:53] LABS: APPEARANCE,URINE CLEAR; BILIRUBIN,URINE NEGATIVE (NEGATIVE); GLUCOSE, URINE >=500 mg/dL (NEGATIVE); KETONES,URINE 80 mg/dL (NEGATIVE); LEUKOCYTE ESTERASE,URINE NEGATIVE (NEGATIVE); NITRITE,URINE NEGATIVE (NEGATIVE); PROTEIN,URINE NEGATIVE (NEGATIVE); URINE SPECIFIC GRAVITY 1.036; UROBILINOGEN,URINE NEGATIVE mg/dL (<2.0)
[2016-04-19] MEDS ORDERED: RINGERS SOLUTION,LACTATED 1,000 ML IV ONE (21:59)
[2016-04-19 22:03] LABS: ANION GAP 12 (5-19); BLOOD UREA NITROGEN 7 mg/dL (7-20); CALCIUM 9.1 mg/dL (8.4-10.2); CARBON DIOXIDE 22 mmol/L (22-30); CHLORIDE 98 mmol/L (98-107); CREATININE RESULT 0.49 mg/dL (0.52-1.25); POTASSIUM 4.6 mmol/L (3.6-5.0); SODIUM 132.3 mmol/L (137-145)
[2016-04-19 22:11] LABS: GLUCOSE 420 mg/dL (75-110)
[2016-04-19] MEDS ORDERED: ALBUTEROL SULFATE HFA (90 MCG/PUFF) 8 GM MDI (1 MDI/ER DISP) IH ONE (22:20)
[2016-04-19 23:54] VITALS: BP 100/60
== END 2016-04-19 23:52 | disposition home or self-care (01) ==
LOC: ER 17:57
DX: J06.9 Acute upper respiratory infection, unspecified (principal); E86.0 Dehydration; E10.65 Type 1 diabetes mellitus with hyperglycemia; J45.901 Unspecified asthma with (acute) exacerbation; R05 Cough; R06.00 Dyspnea, unspecified; R09.81 Nasal congestion; R11.2 Nausea with vomiting, unspecified; J34.89 Other specified disorders of nose and nasal sinuses; R09.89 Other specified symptoms and signs involving the circulatory and respiratory systems; J02.9 Acute pharyngitis, unspecified; R07.89 Other chest pain; Z79.84 Long term (current) use of oral hypoglycemic drugs; Z79.4 Long term (current) use of insulin; Z88.6 Allergy status to analgesic agent; Z88.5 Allergy status to narcotic agent
CPT/HCPCS: 99284; 96374; 96375; 36415; 82962; 84703; 85025; 80048; 81001; 87804; 71020; J3490 ×2; J2930; J2270; J1815; J7030; J7620

== ENCOUNTER 2016-04-20 20:33 | Inpatient (IN) | payer MEDICAID ==
[2016-04-20] MEDS ORDERED: NORMAL SALINE 1000 ML 1,000 ML IV ONE ×3 (20:57→22:52)
--- NOTE | 2016-04-20 21:03 | ER Document Report ---
[id number] Information source: Patient TRAVEL OUTSIDE OF THE [place] IN LAST 30 DAYS: No - HPI Patient complains to provider of: Generalized Body Aches Onset: This morning Associated symptoms: Other - see above <MIGUEL FUENTES - Last Filed: 04/24/16 10:06> - General Chief Complaint: Breathing Difficulty Stated Complaint: DIFFICULTY BREATHING Notes: 25 year old female with history of insulin dependent diabetes mellitus I (since September 2015) presents to the ED complaining of generalized body ache cold-like symptoms for the past few days. Patient is additionally complaining of chills that started this morning. Patient states that "she couldn't get off the couch today" and that she has been sleeping all day. Patient states that she her blood sugar usually runs around 180, but has not checked it today because she's been on the couch all day. Patient states that she has not taken her insulin today and claims she hasn't had anything to eat or drink as well. Patient was seen in the ED yesterday for cough and difficulty breathing. Her blood sugar yesterday was 420. (MIGUEL FUENTES) - Related Data Allergies/Adverse Reactions: aspirin Allergy (Mild, Verified 04/23/16 14:01) Hives ibuprofen Allergy (Mild, Verified 04/23/16 14:01) Hives tramadol Allergy (Mild, Verified 04/23/16 14:01) Hives Home Medications: Current Home Medications Butenafine HCl [Lotrimin Ultra 1% Cream] 1 applic TP DAILY 04/21/16 [History] Cephalexin Monohydrate [Keflex 500 mg Capsule] 500 mg PO BID 04/21/16 [History] Famotidine [Pepcid 40 mg Tablet] 40 mg PO BID 04/21/16 [History] Insulin Aspart [Novolog Flexpen] 10 unit SUBCUT AC 04/21/16 [History] Metformin HCl [Glucophage] 1,000 mg PO BID 04/21/16 [History] Omeprazole Magnesium [Prilosec Otc] 20 mg PO BID 04/21/16 [History] Past Medical History - General Information source: Patient - Social History Smoking Status: Current Every Day Smoker Cigarette use (# per day): Yes - 1 ppd Family History: None Endocrine Medical History: Reports: Hx Diabetes Mellitus Type 1 - Insulin- dependent, metformin, lantis, and novalog Renal/ Medical History: Reports: Hx Kidney Stones. Denies: Hx Peritoneal Dialysis Past Surgical History: Reports: Hx Cholecystectomy, Hx Tubal Ligation - Immunizations Hx Diphtheria, Pertussis, Tetanus Vaccination: Yes <MIGUEL FUENTES - Last Filed: 04/24/16 10:06> Review of Systems - Review of Systems Constitutional: See HPI, Chills, Malaise EENT: No symptoms reported Cardiovascular: No symptoms reported Respiratory: No symptoms reported Gastrointestinal: See HPI, Abdominal pain Genitourinary: No symptoms reported Female Genitourinary: No symptoms reported Musculoskeletal: No symptoms reported Skin: No symptoms reported Hematologic/Lymphatic: No symptoms reported Neurological/Psychological: No symptoms reported -: Yes All other systems reviewed and negative <MIGUEL FUENTES - Last Filed: 04/24/16 10:06> Physical Exam <KOFI FRANCISCO - Last Filed: 04/20/16 22:53> - General General appearance: Alert In distress: None - HEENT Head: Normocephalic, Atraumatic Eyes: Normal Extraocular movements intact: Yes Pupils: PERRL Mucous membranes: Dry. No: Normal - Respiratory Respiratory status: No respiratory distress, Tachypnea, Other - Ketone odor on breath Breath sounds: Normal - Cardiovascular Rhythm: Regular Heart sounds: Normal auscultation - Abdominal Inspection: Normal Distension: No distension Bowel sounds: Normal Tenderness: Tender - tenderness to palpation over the epigastric region - Back Back: Normal - Extremities General upper extremity: Normal inspection, Normal ROM General lower extremity: Normal inspection, Normal ROM - Neurological Neuro grossly intact: Yes - Psychological Associated symptoms: Normal affect, Normal mood - Skin Skin Temperature: Warm Skin Moisture: Dry Skin Color: Normal <MIGUEL FUNETES - Last Filed: 04/24/16 10:06> - Vital signs Vitals: Temp Pulse Resp BP Pulse Ox 98.8 F 114 H 20 123/60 100 04/20/16 20:35 04/20/16 20:35 04/20/16 20:35 04/20/16 20:35 04/20/16 20:35 (KOFI FRANCISCO) (MIGUEL FUENTES) Course - Laboratory Result Diagrams: 04/20/16 20:52 04/20/16 20:52 <KOFI FRANCISCO - Last Filed: 04/20/16 22:53> - Laboratory Result Diagrams: 04/22/16 05:11 04/22/16 09:53 <MIGUEL FUENTES - Last Filed: 04/24/16 10:06> - Re-evaluation Re-evalutation: 04/20/16 22:27 The patient claims she did not take any insulin today, however her blood sugar is only 352 which is much lower than yesterday, and based on an A1c of 13.9, it is probably less than what her baseline blood sugar is at this point. (KOFI FRANCISCO) - Vital Signs Vital signs: Temp Pulse Resp BP Pulse Ox 99.3 F 86 16 113/60 97 04/22/16 11:48 04/22/16 11:48 04/22/16 11:48 04/22/16 11:48 04/22/16 11:48 (KOFI FRANCISCO) (MIGUEL FUENTES) - Laboratory Laboratory results interpreted by me: 04/20/16 04/20/16 04/20/16 20:52 20:52 20:52 RDW 14.4 H Plt Count 148 L Lymphocytes % 10.0 L Monocytes % 14.2 H Sodium 134.3 L Chloride Carbon Dioxide 12 L D Anion Gap 20 H Creatinine Glucose 352 H POC Glucose Hemoglobin A1c % 13.9 H Calcium Magnesium 1.5 L AST 49 H ALT 78 H Creatine Kinase Total Protein 6.0 L Urine Glucose (UA) Urine Ketones Urine Blood 04/20/16 04/20/16 04/20/16 20:52 21:27 21:41 RDW Plt Count Lymphocytes % Monocytes % Sodium Chloride Carbon Dioxide Anion Gap Creatinine Glucose POC Glucose 349 H Hemoglobin A1c % Calcium Magnesium AST ALT Creatine Kinase 20 L Total Protein Urine Glucose (UA) >=500 H Urine Ketones 80 H Urine Blood MODERATE H 04/20/16 04/20/16 04/21/16 22:54 23:51 00:45 RDW Plt Count Lymphocytes % Monocytes % Sodium Chloride Carbon Dioxide Anion Gap Creatinine Glucose POC Glucose 299 H 280 H 312 H Hemoglobin A1c % Calcium Magnesium AST ALT Creatine Kinase Total Protein Urine Glucose (UA) Urine Ketones Urine Blood 04/21/16 04/21/16 01:00 01:56 RDW Plt Count Lymphocytes % Monocytes % Sodium 135.5 L Chloride 109 H Carbon Dioxide 9 L* Anion Gap Creatinine 0.50 L Glucose 292 H POC Glucose 261 H Hemoglobin A1c % Calcium 7.4 L Magnesium AST ALT Creatine Kinase Total Protein Urine Glucose (UA) Urine Ketones Urine Blood (KOFI FRANCISCO) Discharge - Discharge Admitting Provider: Hospitalist Unit Admitted: IMCU <KOFI FRANCISCO - Last Filed: 04/20/16 22:53> <MIGUEL FUENTES - Last Filed: 04/24/16 10:06> - Discharge Clinical Impression: Influenza B, Noncompliance with diabetes treatment Diabetic ketoacidosis associated with type 1 diabetes mellitus Qualifiers: Diabetes mellitus complication detail: without coma Qualified Code(s): E10.10 - Type 1 diabetes mellitus with ketoacidosis without coma Disposition: ADMITTED INPATIENT Scribe Attestation: 04/20/16 22:53 I personally performed the services described in the documentation, reviewed and edited the documentation which was dictated to the scribe in my presence, and it accurately records my words and actions. (KOFI FRANCISCO) Scribe Documentation - Scribe Written by Birde:: Andressa Nguyen, [id number]/20/[id number] acting as scribe for :: Nicolas <MIGUEL FUENTES - Last Filed: 04/24/16 10:06>
[2016-04-20 21:08] LABS: ABSOLUTE LYMPHOCYTES (AUTO) 0.6 10^3/uL (0.5-4.7); ABSOLUTE MONOCYTES (AUTO) 0.8 10^3/uL (0.1-1.4); ABSOLUTE NEUT (AUTO) 4.2 10^3/uL (1.7-8.2); ADD ON TESTING BLD IN LAB ACKNOWLEDGE; BASOPHILS % (AUTO) 0.4 % (0-2); HEMATOCRIT 41.5 % (36.0-47.0); HEMOGLOBIN 13.8 g/dL (12.0-15.5); HGB HCT DIFFERENCE -0.1; MEAN CORPUSCULAR HEMOGLOBIN 29.9 pg (27.0-33.4); MEAN CORPUSCULAR HGB CONC 33.3 g/dL (32.0-36.0); MEAN CORPUSCULAR VOLUME 90 fl (80-97); MONOCYTES % (AUTO) 14.2 % (3-13); RED BLOOD COUNT 4.62 10^6/uL (3.72-5.28); RED CELL DISTRIBUTION WIDTH 14.4 % (11.5-14.0); SEGMENTED NEUTROPHILS % (AUTO) 75.4 % (42-78); WHITE BLOOD COUNT 5.6 10^3/uL (4.0-10.5)
[2016-04-20 21:18] LABS: LIPASE 50.5 U/L (23-300)
[2016-04-20 21:20] LABS: ALANINE AMINOTRANSFERASE 78 U/L (9-52); ALBUMIN 3.7 g/dL (3.5-5.0); ALKALINE PHOSPHATASE 117 U/L (38-126); ASPARTATE AMINO TRANSFERASE 49 U/L (14-36); BILIRUBIN,TOTAL 0.5 mg/dL (0.2-1.3); BLOOD UREA NITROGEN 10 mg/dL (7-20); CALCIUM 8.4 mg/dL (8.4-10.2); CREATININE RESULT 0.62 mg/dL (0.52-1.25); GLUCOSE 352 mg/dL (75-110); MAGNESIUM 1.5 mg/dL (1.6-2.3); PHOSPHORUS 3.4 mg/dL (2.5-4.5)
[2016-04-20] MEDS ORDERED: INSULIN REG, HUMAN 100 UNIT/ML 3 ML VIAL (PYX) IV ONE (21:30)
[2016-04-20] MEDS ORDERED: PANTOPRAZOLE SODIUM 40 MG VIAL IV ONE (21:31)
[2016-04-20 21:47] LABS: CHLORIDE 102 mmol/L (98-107); POTASSIUM 4.1 mmol/L (3.6-5.0); SODIUM 134.3 mmol/L (137-145)
[2016-04-20 21:52] LABS: ANION GAP 20 (5-19); CARBON DIOXIDE 12 mmol/L (22-30)
[2016-04-20 21:53] LABS: APPEARANCE,URINE CLEAR; BILIRUBIN,URINE NEGATIVE (NEGATIVE); GLUCOSE, URINE >=500 mg/dL (NEGATIVE); KETONES,URINE 80 mg/dL (NEGATIVE); LEUKOCYTE ESTERASE,URINE NEGATIVE (NEGATIVE); NITRITE,URINE NEGATIVE (NEGATIVE); PROTEIN,URINE NEGATIVE (NEGATIVE); URINE SPECIFIC GRAVITY 1.026; UROBILINOGEN,URINE NEGATIVE mg/dL (<2.0)
[2016-04-20] MEDS ORDERED: MORPHINE SULFATE 10 MG/ML INJ IV ONE (22:46)
[2016-04-20] MEDS ORDERED: OSELTAMIVIR PHOSPHATE 75 MG CAPSULE PO ONE (22:46)
[2016-04-20] MEDS ORDERED: ONDANSETRON HCL INJ/PF 4 MG/2 ML SDV IV ONE (22:46)
[2016-04-20] MEDS ORDERED: POTASSI CL 20 MEQ/NS 1L 1,000 ML IV PRN (23:09)
[2016-04-20 23:19] LABS: ADD ON TESTING BLD IN LAB ACKNOWLEDGE
[2016-04-20 23:31] LABS: CREATINE KINASE 20 U/L (30-135)
[2016-04-20 23:46] LABS: CREATINE KINASE MB < 0.22 ng/mL (<4.55); TROPONIN I < 0.012 ng/mL
[2016-04-21 00:04] LABS: URINE BARBITURATES SCREEN NEGATIVE; URINE METHADONE SCREEN NEGATIVE; URINE OPIATES LOW NEGATIVE; URINE PHENCYCLIDINE SCREEN NEGATIVE
[2016-04-21 01:34] LABS: ANION GAP 18 (5-19); BLOOD UREA NITROGEN 8 mg/dL (7-20); CALCIUM 7.4 mg/dL (8.4-10.2); CHLORIDE 109 mmol/L (98-107); GLUCOSE 292 mg/dL (75-110); POTASSIUM 4.6 mmol/L (3.6-5.0); SODIUM 135.5 mmol/L (137-145)
[2016-04-21 01:44] LABS: CARBON DIOXIDE 9 mmol/L (22-30)
[2016-04-21] MEDS ORDERED: RINGERS SOLUTION,LACTATED 2,000 ML IV ONE (02:01)
[2016-04-21] MEDS ORDERED: NORMAL SALINE 1000 ML 1,000 ML IV PRN ×2 (02:01→22:16)
[2016-04-21] MEDS ORDERED: DEXTROSE 40% GEL 15 GM TUBE PO PRN ×2 (02:03)
[2016-04-21] MEDS ORDERED: DEXTROSE 50%-WATER 25 GM/50 ML DISP.SYRIN IV PRN ×2 (02:03)
[2016-04-21] MEDS ORDERED: GLUCAGON,HUMAN RECOMB 1 MG INJ IM PRN (02:03)
[2016-04-21] MEDS ORDERED: NORMAL SALINE 100 ML with INSULIN REGULAR, HUMAN 100 UNIT IV PRN ×2 (02:03)
[2016-04-21] MEDS ORDERED: ACETAMINOPHEN 325 MG TABLET PO PRN (02:06)
[2016-04-21] MEDS ORDERED: PROMETHAZINE HCL INJ 25 MG/1 ML VIAL IV PRN (02:08)
[2016-04-21] MEDS ORDERED: MAGNESIUM HYDROXIDE SUSP 30 ML UDCUP PO PRN (02:10)
[2016-04-21] MEDS ORDERED: MAG HYDROX/AL HYDROX/SIMETH SUSP 30 ML UDCUP PO PRN (02:10)
[2016-04-21] MEDS ORDERED: DEXTROSE 5%-NORMAL SALINE 1,000 ML IV PRN (02:12)
[2016-04-21] MEDS ORDERED: NICOTINE 21 MG/24 HR PATCH.TD24 TD PRN (02:22)
--- NOTE | 2016-04-21 02:35 | PDOC H&P ---
History of Present Illness Admission Date/PCP: 04/21/16 00:11 John [place] Patient complains of: BODY ACHES History of Present Illness: FRIDA ALMANZA is a 25 year old female, pack-a-day smoker, and with underlying mild reflux, along with history of nephrolithiasis, presents to the emergency room for the second time in 48 hours, this time for generalized body aches. Was seen in the emergency department on the for cough and difficulty breathing. Blood sugar at that time was 420. Returns now with generalized body aches and cold like symptoms for the past several days. Upper and lower extremities ache even lying still, with increased discomfort with much movement of any type. Subjective fever with shaking chills. Mild abdominal discomfort, but not much. Mild dry cough. Has basically been lying on the couch all day, with little if anything to eat or drink. No nausea vomiting, diarrhea or dysuria. States she has been compliant with her medications including insulin. No previous history of diabetic ketoacidosis. No underlying pulmonary disease. Has not had a flu shot this year. Patient has been discussed with emergency room physician who evaluated the patient. . Laboratory results are listed in [employer] and are reviewed. X-ray summary results are listed below, with full report(s) reviewed. . EKG reviewed. And compared to tracing from 02/14/2016. Social history/personal habits: . 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 Rare wine cooler. No illicit drug use. Allergies/adverse reactions are listed in [employer] and are reviewed. Home medications are reviewed by discussion with patient and have been reconciled by nursing staff in [facility]. Home medications initially autopopulated into [facility] may not accurately reflect patient's true medications, dosages, and/or frequencies. REVIEW OF SYSTEMS: Constitutional: See history and present illness. Eyes: Wears glasses. ENT: No swallowing problems or complaints. No hearing problems or complaints. Pulmonary: See history and present illness. Cardiovascular: No current complaints, including chest pain. Gastrointestinal: No current complaints, including nausea or vomiting. Skin: No current complaints, including rashes. Hematologic: Easy bruising. Neurologic: No current complaints, including numbness or tingling. Musculoskeletal: See history and present illness. Psychiatric: No current complaints, including anxiety or depression. Endocrine: Polyuria. Genitourinary: No current complaints, including dysuria. PHYSICAL EXAMINATION: 5 feet 5 inches tall. 77.1 kg. BMI 28.3 kg/m. Temperature 98.4. Blood pressure 104/63. Pulse 114 and regular. 96% saturation on room air. Respirations are 24 and unlabored. Female emergency room nursing admin Lucille is present. Slightly overweight otherwise well-nourished well-developed young female who appears not to feel very well. Appears fatigued. Pleasant awake alert and cooperative, however. Mildly anxious, without agitation. Skin is warm and dry. No grossly obvious evidence of rash in areas of skin examined. No subcutaneous nodules palpated. A slight flushed appearance to her skin. ENT: Hearing grossly normal to normal conversation. Tongue midline on protrusion pink and slightly tacky. Eyes: No scleral icterus. Pupils equal and reactive to light at 4 mm. [place] conjunctivae. Neck is supple and nontender to gentle active range of motion and palpation. Midline trachea. No palpable thyroid nodule mass enlargement or tenderness. Lymphatic: No palpable cervical or clavicular nodes. Psychiatric: Reasonable insight into acute and chronic medical issues. Oriented to time location and why here. Lungs: Auscultation reveals clear and equal breath sounds bilaterally. No use of accessory respiratory muscles. Cardiovascular: Heart regular rate and rhythm, without gallop murmur or rub. No carotid or abdominal aortic bruits. No ankle or pedal edema. palpable dorsalis pedis pulses. Abdomen: soft, nontender with positive bowel sounds. No upper abdominal mass or organomegaly palpated. Extremities: Hands and Feet are warm and dry. Mild diffuse lower extremity tenderness to compression, without palpable venous cord.. No grossly obvious visual evidence of calf swelling. Gentle manipulation of lower extremities fails to reveal any obvious evidence of injury or instability to knees hips or ankles. Neurologic: Moves upper extremities grossly normally. Moves from a lateral decubitus to a supine position without undue difficulty. Patellar reflexes absent. Absent Babinski. Light touch is intact at feet. Dorsiflexion and plantarflexion of feet 5 / 5 and symmetric. Past Medical History Cardiac Medical History: Denies: Congestive Heart Failure, DVT, Myocardial Infarction, Hyperlipidema, Hypertension, Pulmonary Embolism Pulmonary Medical History: Denies: Asthma, Chronic Obstructive Pulmonary Disease (COPD) EENT Medical History: Reports: Eyes - Glasses Denies: Ears, Throat Neurological Medical History: Denies: Hemorrhagic CVA, Ischemic CVA, Seizures Endocrine Medical History: Reports: Diabetes Mellitus Type 1 - Insulin-dependent , metformin, lantus, and novalog Denies: Hyperthyroidism, Hypothyroidism Renal/ Medical History: Reports: Nephrolithiasis - History of GI Medical History: Reports: Gastroesophageal Reflux Disease Denies: Cirrhosis, Hepatitis, Peptic Ulcer Disease Musculoskeltal Medical History: Denies: Arthritis Skin Medical History: Reports: None Denies: Eczema, Psoriasis Psychiatric Medical History: Reports: Tobacco Dependency Denies: Alcohol Dependency, Depression, General Anxiety Disorder, Substance Abuse Hematology: Reports: Other - Easy bruising Infectious Medical History: Denies: Hepatitis B, Hepatitis C Past Surgical History Past Surgical History: Reports: Cholecystectomy, Tubal Ligation Social History Information Source: Patient, Emergency Med Personnel, [facility] Records Lives with: Spouse/Significant other Smoking Status: Current Every Day Smoker Frequency of Alcohol Use: Rare Drugs: None - Advance Directive Resuscitation Status: Full Code Surrogate healthcare decision maker:: Family History Family History: None Parental Family History Reviewed: Yes Children Family History Reviewed: Yes Sibling(s) Family History Reviewed.: Yes Medication/Allergy Home Medications: Butenafine HCl [Lotrimin Ultra 1% Cream] 1 applic TP DAILY 04/21/16 Cephalexin Monohydrate [Keflex 500 mg Capsule] 500 mg PO BID 04/21/16 Famotidine [Pepcid 40 mg Tablet] 40 mg PO BID 04/21/16 Insulin Aspart [Novolog Flexpen] 10 unit SUBCUT AC 04/21/16 Metformin HCl [Glucophage] 1,000 mg PO BID 04/21/16 Omeprazole Magnesium [Prilosec Otc] 20 mg PO BID 04/21/16 Allergies/Adverse Reactions: aspirin Allergy (Mild, Verified 04/19/16 18:33) Hives ibuprofen Allergy (Mild, Verified 04/19/16 18:33) Hives tramadol Allergy (Mild, Verified 04/21/16 02:45) Hives Physical Exam Vital Signs: Temp Pulse Resp BP Pulse Ox 98.4 F 114 H 21 H 104/63 96 04/21/16 00:16 04/20/16 20:35 04/21/16 00:01 04/21/16 01:01 04/21/16 01:01 Results Laboratory Results: 04/21/16 01:00 04/21/16 01:00 Sodium 135.5 L Potassium 4.6 Chloride 109 H Carbon Dioxide 9 L* Anion Gap 18 BUN 8 Creatinine 0.50 L Est GFR ( Amer) > 60 Est GFR (Non-Af Amer) > 60 Glucose 292 H Calcium 7.4 L Impressions: Chest X-Ray 04/20/16 00:00 IMPRESSION: NO ACUTE RADIOGRAPHIC FINDING IN THE CHEST. Assessment & Plan - Diagnosis (2) Diabetic ketoacidosis associated with type 1 diabetes mellitus Qualifiers: Diabetes mellitus complication detail: without coma Qualified Code(s): E10.10 - Type 1 diabetes mellitus with ketoacidosis without coma Is this a current diagnosis for this admission?: YesPlan: Patient will be admitted under DKA protocol. Insulin drip. Vigorous fluid hydration. Strict intake and output. Q 4 hours chemistry 7. Hourly Accu- Cheks. Addition of dextrose to intravenous fluid once serum glucose and/or Accu- Cheks 275 or less. Patient is full code. I have strongly encouraged patient not to get out of bed without notifying staff , to avoid a fall with injury. Knee high SCDs for DVT prophylaxis, along with subcutaneous Lovenox. Impression and plans were discussed with patient , who concurs. Time spent in evaluation and management of patient: 68 minutes (3) Elevated LFTs Is this a current diagnosis for this admission?: YesPlan: Follow-up liver panel. (4) Influenza B Is this a current diagnosis for this admission?: YesPlan: Tamiflu. First dose received in emergency room. (5) Thrombocytopenia Is this a current diagnosis for this admission?: YesPlan: Mild. Follow-up CBC with differential. - Inpatient Certification Medical Necessity: Need Close Monitoring Due to Risk of Patient Decompensation, Need For IV Fluids, Need For Continuous Telemetry Monitoring, Risk of Diagnosis Which Will Require Inpatient Eval/Care/Monitoring Post Hospital Care: D/C or Transfer Summary
[2016-04-21] MEDS ORDERED: INFLUENZA ADLT QUAD (36MOS+) 2016-17 VAC 0.5 ML SYR IM PRN (03:33)
[2016-04-21] MEDS: OXYCODONE HCL IR 5 MG TABLET PO PRN ×3 (04:44→20:30)
[2016-04-21] MEDS: ACETAMINOPHEN 325 MG TABLET PO PRN ×3 (04:50→20:30)
[2016-04-21 05:27] LABS: ABSOLUTE MONOCYTES (AUTO) 0.4 10^3/uL (0.1-1.4); ABSOLUTE NEUT (AUTO) 2.8 10^3/uL (1.7-8.2); BASOPHILS % (AUTO) 0.3 % (0-2); EOSINOPHILS % (AUTO) 0.1 % (0-6); LYMPHOCYTES % (AUTO) 24.1 % (13-45); MEAN CORPUSCULAR HEMOGLOBIN 30.3 pg (27.0-33.4); MEAN CORPUSCULAR HGB CONC 34.2 g/dL (32.0-36.0); MEAN CORPUSCULAR VOLUME 89 fl (80-97); MONOCYTES % (AUTO) 9.4 % (3-13); RED BLOOD COUNT 3.96 10^6/uL (3.72-5.28); RED CELL DISTRIBUTION WIDTH 14.7 % (11.5-14.0); SEGMENTED NEUTROPHILS % (AUTO) 66.1 % (42-78); WHITE BLOOD COUNT 4.3 10^3/uL (4.0-10.5)
[2016-04-21 05:42] LABS: ALANINE AMINOTRANSFERASE 56 U/L (9-52); ALBUMIN 2.2 g/dL (3.5-5.0); ALKALINE PHOSPHATASE 78 U/L (38-126); ANION GAP 8 (5-19); ASPARTATE AMINO TRANSFERASE 26 U/L (14-36); BILIRUBIN,TOTAL 0.2 mg/dL (0.2-1.3); BLOOD UREA NITROGEN 6 mg/dL (7-20); CALCIUM 7.1 mg/dL (8.4-10.2); CARBON DIOXIDE 16 mmol/L (22-30); CHLORIDE 110 mmol/L (98-107); CREATININE RESULT 0.46 mg/dL (0.52-1.25); GLUCOSE 156 mg/dL (75-110); MAGNESIUM 1.3 mg/dL (1.6-2.3); SODIUM 133.9 mmol/L (137-145); TOTAL PROTEIN 4.6 g/dL (6.3-8.2)
[2016-04-21 06:15] LABS: POTASSIUM 3.6 mmol/L (3.6-5.0)
[2016-04-21] MEDS ORDERED: MAGNESIUM SULFATE/D5W 1 GM/100 ML RTUPB IV ONE (07:00)
[2016-04-21] MEDS: POTASSI CL 20 MEQ/D5-1/2NS 1L 1,000 ML IV PRN ×2 (09:28→16:26)
[2016-04-21] MEDS: DOCUSATE SODIUM 100 MG CAPSULE PO SCH ×2 (09:30→18:26)
[2016-04-21] MEDS: MAGNESIUM SULFATE/D5W 1 GM/100 ML RTUPB IV SCH ×2 (09:30→10:44)
[2016-04-21] MEDS: ENOXAPARIN SODIUM INJ 40 MG/0.4 ML DISP.SYRIN SUBCUT SCH (09:31)
[2016-04-21] MEDS: POTASSI CL 20 MEQ/50 ML RIDER 20 MEQ/50 ML RTUPB IV SCH ×2 (09:32→11:54)
[2016-04-21 09:39] LABS: ANION GAP 5 (5-19); BLOOD UREA NITROGEN 6 mg/dL (7-20); CALCIUM 7.3 mg/dL (8.4-10.2); CARBON DIOXIDE 20 mmol/L (22-30); CHLORIDE 111 mmol/L (98-107); CREATININE RESULT 0.45 mg/dL (0.52-1.25); GLUCOSE 95 mg/dL (75-110); POTASSIUM 3.5 mmol/L (3.6-5.0); SODIUM 135.6 mmol/L (137-145)
[2016-04-21] MEDS: INSULIN GLARGINE,HUM.REC.ANLOG 300 UNIT/3 ML INSULN.PEN SUBCUT SCH (10:43)
[2016-04-21] MEDS: OSELTAMIVIR PHOSPHATE 75 MG CAPSULE PO SCH ×2 (10:43→18:27)
--- NOTE | 2016-04-21 11:09 | EKG REPORT ---
SEVERITY:- OTHERWISE NORMAL ECG - SINUS TACHYCARDIA : Confirmed by: Gurdeep Christensen MD 21-Apr-2016 11:07:25
[2016-04-21] MEDS: INSULIN LISPRO 100 UNIT/ML 3 ML VIAL SUBCUT PRN ×3 (11:54→22:06)
[2016-04-21 13:14] LABS: ANION GAP 8 (5-19); BLOOD UREA NITROGEN 6 mg/dL (7-20); CALCIUM 7.3 mg/dL (8.4-10.2); CARBON DIOXIDE 18 mmol/L (22-30); CHLORIDE 105 mmol/L (98-107); CREATININE RESULT 0.48 mg/dL (0.52-1.25); GLUCOSE 254 mg/dL (75-110); POTASSIUM 3.9 mmol/L (3.6-5.0); SODIUM 131.4 mmol/L (137-145)
[2016-04-21 17:24] LABS: ANION GAP 6 (5-19); BLOOD UREA NITROGEN 5 mg/dL (7-20); CALCIUM 7.4 mg/dL (8.4-10.2); CARBON DIOXIDE 20 mmol/L (22-30); CHLORIDE 104 mmol/L (98-107); CREATININE RESULT 0.54 mg/dL (0.52-1.25); GLUCOSE 298 mg/dL (75-110); SODIUM 130.3 mmol/L (137-145)
[2016-04-21 17:29] LABS: POTASSIUM 4.2 mmol/L (3.6-5.0)
[2016-04-21 21:42] LABS: ANION GAP 8 (5-19); BLOOD UREA NITROGEN 7 mg/dL (7-20); CALCIUM 7.5 mg/dL (8.4-10.2); CARBON DIOXIDE 21 mmol/L (22-30); CHLORIDE 101 mmol/L (98-107); CREATININE RESULT 0.56 mg/dL (0.52-1.25); GLUCOSE 320 mg/dL (75-110); POTASSIUM 4.2 mmol/L (3.6-5.0); SODIUM 129.5 mmol/L (137-145)
[2016-04-21] MEDS ORDERED: POTASSI CL 20 MEQ/D5-1/2NS 1L 1,000 ML IV PRN (22:04)
[2016-04-21] MEDS ORDERED: PIPERACILLIN SODIUM/TAZOBACTAM 4.5 GM in NORMAL SALINE 100 ML IV ONE (22:30)
[2016-04-21] MEDS ORDERED: PIPERACILLIN/TAZOBACTAM 4.5 GM VIAL IV PRN (22:31)
[2016-04-21] MEDS: MORPHINE SULFATE 10 MG/ML INJ IV PRN (22:40)
[2016-04-21] MEDS ORDERED: PIPERACILLIN/TAZOBACTAM 4.5 GM VIAL IV ONE (23:00)
[2016-04-22 01:16] LABS: ANION GAP 5 (5-19); BLOOD UREA NITROGEN 7 mg/dL (7-20); CALCIUM 7.5 mg/dL (8.4-10.2); CARBON DIOXIDE 22 mmol/L (22-30); CHLORIDE 107 mmol/L (98-107); CREATININE RESULT 0.53 mg/dL (0.52-1.25); GLUCOSE 262 mg/dL (75-110); POTASSIUM 3.9 mmol/L (3.6-5.0); SODIUM 133.7 mmol/L (137-145)
[2016-04-22] MEDS ORDERED: NORMAL SALINE 1000 ML 1,000 ML IV PRN (02:18)
[2016-04-22] MEDS: PIPERACILLIN SODIUM/TAZOBACTAM 4.5 GM in NORMAL SALINE 100 ML IV SCH ×2 (03:25→10:16)
[2016-04-22] MEDS: ACETAMINOPHEN 325 MG TABLET PO PRN (04:28)
[2016-04-22] MEDS: OXYCODONE HCL IR 5 MG TABLET PO PRN (04:33)
[2016-04-22 05:35] LABS: ABSOLUTE LYMPHOCYTES (AUTO) 0.8 10^3/uL (0.5-4.7); ABSOLUTE MONOCYTES (AUTO) 0.3 10^3/uL (0.1-1.4); ABSOLUTE NEUT (AUTO) 2.6 10^3/uL (1.7-8.2); BASOPHILS % (AUTO) 0.4 % (0-2); EOSINOPHILS % (AUTO) 0.1 % (0-6); HEMATOCRIT 33.9 % (36.0-47.0); HEMOGLOBIN 11.6 g/dL (12.0-15.5); HGB HCT DIFFERENCE 0.9; LYMPHOCYTES % (AUTO) 22.5 % (13-45); MEAN CORPUSCULAR HEMOGLOBIN 29.8 pg (27.0-33.4); MEAN CORPUSCULAR HGB CONC 34.4 g/dL (32.0-36.0); RED CELL DISTRIBUTION WIDTH 14.3 % (11.5-14.0); WHITE BLOOD COUNT 3.8 10^3/uL (4.0-10.5)
[2016-04-22 05:55] LABS: ANION GAP 7 (5-19); BLOOD UREA NITROGEN 6 mg/dL (7-20); CALCIUM 7.4 mg/dL (8.4-10.2); CARBON DIOXIDE 21 mmol/L (22-30); CHLORIDE 102 mmol/L (98-107); CREATININE RESULT 0.51 mg/dL (0.52-1.25); GLUCOSE 270 mg/dL (75-110); MAGNESIUM 1.3 mg/dL (1.6-2.3); PHOSPHORUS 2.2 mg/dL (2.5-4.5); POTASSIUM 3.9 mmol/L (3.6-5.0)
[2016-04-22 05:59] LABS: MEAN CORPUSCULAR VOLUME 87 fl (80-97)
[2016-04-22] MEDS ORDERED: RINGERS SOLUTION,LACTATED 1,000 ML IV PRN (05:59)
[2016-04-22] MEDS ORDERED: POTASSIUM CHLORIDE 10 MEQ TABLET.SA PO ONE (06:01)
--- NOTE | 2016-04-22 06:03 | Progress Note ---
Provider Note Provider Note: 04/22/2016, 5:30 AM: Per nursing staff, patient complaining of sore throat. Went to the patient's bedside. Patient's Female floor nurse present. Examination of the oropharynx reveals very mild inflammation and soft tissue swelling. No exudate or ulceration.
[2016-04-22] MEDS: MORPHINE SULFATE 10 MG/ML INJ IV PRN (06:19)
[2016-04-22] MEDS: INSULIN LISPRO 100 UNIT/ML 3 ML VIAL SUBCUT PRN ×2 (07:41→12:19)
[2016-04-22] MEDS: ENOXAPARIN SODIUM INJ 40 MG/0.4 ML DISP.SYRIN SUBCUT SCH (07:42)
[2016-04-22] MEDS: OSELTAMIVIR PHOSPHATE 75 MG CAPSULE PO SCH (09:09)
[2016-04-22] MEDS: DOCUSATE SODIUM 100 MG CAPSULE PO SCH (09:09)
[2016-04-22] MEDS: INSULIN GLARGINE,HUM.REC.ANLOG 300 UNIT/3 ML INSULN.PEN SUBCUT SCH (09:11)
[2016-04-22 10:58] LABS: ANION GAP 7 (5-19); BLOOD UREA NITROGEN 5 mg/dL (7-20); CALCIUM 7.7 mg/dL (8.4-10.2); CARBON DIOXIDE 23 mmol/L (22-30); CHLORIDE 105 mmol/L (98-107); CREATININE RESULT 0.42 mg/dL (0.52-1.25); GLUCOSE 244 mg/dL (75-110); POTASSIUM 3.9 mmol/L (3.6-5.0); SODIUM 134.7 mmol/L (137-145)
[2016-04-22 12:26] VITALS: BP 113/60
--- NOTE | 2016-04-22 13:11 | PDOC DISCHARGE SUMMARY ---
General - Admit/Disc Date/PCP Admission Date/Primary Care Provider: 04/21/16 02:10 Discharge Date: 04/22/16 - Discharge Diagnosis (1) Bacteremia Is this a current diagnosis for this admission?: YesSummary: Home of the two-week course of Augmentin with instructions to follow-up with her primary care provider in the next couple of days or return to the emergency department for worsening condition (2) Diabetic ketoacidosis associated with type 1 diabetes mellitus Is this a current diagnosis for this admission?: YesSummary: Resolved with treatment of the underlying condition and IV fluids and insulin drip changed to her usual insulin regimen prior to discharge. (3) Elevated LFTs Is this a current diagnosis for this admission?: YesSummary: Mild and Likely secondary to the above viral illness. (4) Influenza B Is this a current diagnosis for this admission?: YesSummary: Continue 5 days of Tamiflu. Follow up with her PCP in one week. (5) Thrombocytopenia Is this a current diagnosis for this admission?: YesSummary: Likely related to the underlying infection. Needs repeat labs in the next few days. Defer to the patient for follow-up with her PCP. (6) Tobacco dependency Is this a current diagnosis for this admission?: Yes - Additional Information Resuscitation Status: Full Code Home Medications: Butenafine HCl [Lotrimin Ultra 1% Cream] 1 applic TP DAILY 04/21/16 Cephalexin Monohydrate [Keflex 500 mg Capsule] 500 mg PO BID 04/21/16 Famotidine [Pepcid 40 mg Tablet] 40 mg PO BID 04/21/16 Insulin Aspart [Novolog Flexpen] 10 unit SUBCUT AC 04/21/16 Metformin HCl [Glucophage] 1,000 mg PO BID 04/21/16 Omeprazole Magnesium [Prilosec Otc] 20 mg PO BID 04/21/16 History of Present Illness Patient complains of: Generalized body aches History of Present Illness: FRIDA ALMANZA is a 25 year old female, pack-a-day smoker, and with underlying mild reflux, along with history of nephrolithiasis, presents to the emergency room for the second time in 48 hours, this time for generalized body aches. Hospital Course Hospital Course: Was seen in the emergency department on the for cough and difficulty breathing. Blood sugar at that time was 420. Returns now with generalized body aches and cold like symptoms for the past several days. Upper and lower extremities ache even lying still, with increased discomfort with much movement of any type. Subjective fever with shaking chills. Mild abdominal discomfort, but not much. Mild dry cough. Has basically been lying on the couch all day, with little if anything to eat or drink. No nausea vomiting, diarrhea or dysuria. States she has been compliant with her medications including insulin. No previous history of diabetic ketoacidosis. No underlying pulmonary disease. Has not had a flu shot this year. She screened positive for influenza B and was admitted to the hospital in diabetic ketoacidosis, very mild, with good resolution and her anion gap acidosis with usual treatment of insulin drip and IV fluids. She was transitioned over to her usual basal bolus insulin regimen as her diet and oral intake improved. She is empirically treated with Tamiflu. During her hospitalization spiked fever to 102.3 and initial blood culture results show 1 out of 2 anaerobic bottles positive for gram-positive organism and so she was started on Zosyn therapy. Repeat cultures were drawn. Today the patient reports "family tragedy" and states that she needs to be discharged. I explained her that we're waiting on follow-up culture results, that she was still having fevers and need to stay in the hospital. She refuses to stay and has signed out AGAINST MEDICAL ADVICE. She was at least willing to accept a prescription for Augmentin and states she understands the need to follow-up with her outpatient provider in the next couple of days for repeat laboratory work and confirmation that she is continuing to improve. She was also provided a prescription for 5 day course of Tamiflu. Physical Exam Vital Signs: Temp Pulse Resp BP Pulse Ox 99.3 F 86 16 113/60 97 04/22/16 11:48 04/22/16 11:48 04/22/16 11:48 04/22/16 11:48 04/22/16 11:48 Intake & Output 04/21/16 04/22/16 04/23/16 06:59 06:59 06:59 Intake Total 4364 8587 Balance 2100 7458 Weight 78.2 kg 83.7 kg EXAM GENERAL: NAD; well developed, well nourished; no obese; alert and oriented to person, place, time, situation HEENT: normocephalic, atraumatic; no conjunctival injection, no scleral icterus ; oral mucosa moist; RESPIRATORY: no accessory muscle use, no increased WOB, good air entry bilaterally; no wheezes, but rales and rhonchi bilateral; CARDIO: no JVD; RRR; no systolic murmur; no tachycardia GI: soft; nondistended; normal bowel sounds; no rebound, rigidity, guarding VASCULAR: no pallor; 2+ radial, DP pulse; normal capillary refill EXTREMITIES: no calf tender; no palpable cords in calf; no clubbing, cyanosis , pedal edema PSYCH: normal affect, very tearful SKIN: warm; moist; no petechiae; no telengectasias; no jaundice; no rash Results Laboratory Results: 04/22/16 05:11 04/22/16 09:53 04/21/16 04/21/16 04/21/16 12:46 16:57 21:07 WBC RBC Hgb Hct MCV MCH MCHC RDW Plt Count Seg Neutrophils % Lymphocytes % Monocytes % Eosinophils % Basophils % Absolute Neutrophils Absolute Lymphocytes Absolute Monocytes Absolute Eosinophils Absolute Basophils Sodium 131.4 L 130.3 L 129.5 L Potassium 3.9 4.2 4.2 Chloride 105 104 101 Carbon Dioxide 18 L 20 L 21 L Anion Gap 8 6 8 BUN 6 L 5 L 7 Creatinine 0.48 L 0.54 0.56 Est GFR ( Amer) > 60 > 60 > 60 Est GFR (Non-Af Amer) > 60 > 60 > 60 Glucose 254 H 298 H 320 H Calcium 7.3 L 7.4 L 7.5 L Phosphorus Magnesium 04/22/16 04/22/16 04/22/16 00:56 05:11 05:11 WBC 3.8 L RBC 3.90 Hgb 11.6 L Hct 33.9 L MCV 87 MCH 29.8 MCHC 34.4 RDW 14.3 H Plt Count 88 L Seg Neutrophils % 69.0 Lymphocytes % 22.5 Monocytes % 8.0 Eosinophils % 0.1 Basophils % 0.4 Absolute Neutrophils 2.6 Absolute Lymphocytes 0.8 Absolute Monocytes 0.3 Absolute Eosinophils 0.0 Absolute Basophils 0.0 Sodium 133.7 L 130.0 L Potassium 3.9 3.9 Chloride 107 102 Carbon Dioxide 22 21 L Anion Gap 5 7 BUN 7 6 L Creatinine 0.53 0.51 L Est GFR ( Amer) > 60 > 60 Est GFR (Non-Af Amer) > 60 > 60 Glucose 262 H 270 H Calcium 7.5 L 7.4 L Phosphorus 2.2 L Magnesium 1.3 L 04/22/16 09:53 WBC RBC Hgb Hct MCV MCH MCHC RDW Plt Count Seg Neutrophils % Lymphocytes % Monocytes % Eosinophils % Basophils % Absolute Neutrophils Absolute Lymphocytes Absolute Monocytes Absolute Eosinophils Absolute Basophils Sodium 134.7 L Potassium 3.9 Chloride 105 Carbon Dioxide 23 Anion Gap 7 BUN 5 L Creatinine 0.42 L Est GFR ( Amer) > 60 Est GFR (Non-Af Amer) > 60 Glucose 244 H Calcium 7.7 L Phosphorus Magnesium Impressions: Chest X-Ray 04/20/16 00:00 IMPRESSION: NO ACUTE RADIOGRAPHIC FINDING IN THE CHEST. Qualifiers PATEINT BEING DISCHARGED WITH ANY OF THE FOLLOWING DIAGNOSIS?: No VTE patient discharged on overlapping Therapy?: Yes Plan Discharge Plan: Patient signed the appropriate paperwork and is leaving the hospital AGAINST MEDICAL ADVICE. Time Spent: Greater than 30 Minutes
== END 2016-04-22 12:30 | disposition left against medical advice (07) | DRG 639 ==
LOC: ER 20:33 → EH 04-21 00:11 → UNDOADMIN 04-21 00:11 → 3N 04-21 02:10 → EH 04-21 02:45 → 3N 04-21 02:45
PROVIDERS: ADMIT Family Medicine; ATTEND Family Medicine
DX: E10.10 Type 1 diabetes mellitus with ketoacidosis without coma (principal); J11.1 Influenza due to unidentified influenza virus with other respiratory manifestations; D69.6 Thrombocytopenia, unspecified; K21.9 Gastro-esophageal reflux disease without esophagitis; F17.210 Nicotine dependence, cigarettes, uncomplicated; Z91.19 Patient's noncompliance with other medical treatment and regimen; Z79.899 Other long term (current) drug therapy; Z79.4 Long term (current) use of insulin; Z90.49 Acquired absence of other specified parts of digestive tract; Z88.6 Allergy status to analgesic agent; Z88.8 Allergy status to other drugs, medicaments and biological substances
CPT/HCPCS: 36415; 71010; 80048; 80053; 80076; 80307; 81001; 82550; 82553; 82962; 83036; 83690; 83735; 84100; 84484; 85025; 87040; 87077; 87186; 87804; 93005; 93010; 96361; 96374; 96375; 99285; J1650; J1815; J2270; J2405; J2543; J3475; J3480; J3490; J7030; J7120; S0164

== ENCOUNTER 2016-04-23 13:35 | Emergency (ER) | payer MEDICAID ==
--- NOTE | 2016-04-23 14:04 | ER Document Report ---
ED Medical Screen (RME) - General Stated Complaint: DIFFICULTY BREATHING Time seen by provider: 14:01 Mode of Arrival: Ambulatory Information source: Patient Notes: 25-year-old female presents to ED for abdominal pain shortness of breath. She states she was admitted on the for flu and left AMA yesterday and I was worsen mistake of her life. Complaining of epigastric pain, sharp pain. Pain level 4/5 . Lungs clear bilaterally bowel sounds normal. I have greeted and performed a rapid initial assessment of this patient. A comprehensive ED assessment and evaluation of the patient, analysis of test results and completion of medical decision making process will be conducted by an additional ED providers. TRAVEL OUTSIDE OF THE [place] IN LAST 30 DAYS: No - Related Data Allergies/Adverse Reactions: aspirin Allergy (Mild, Verified 04/19/16 18:33) Hives ibuprofen Allergy (Mild, Verified 04/19/16 18:33) Hives tramadol Allergy (Mild, Verified 04/21/16 02:45) Hives Past Medical History - Social History Family history: Reviewed & Not Pertinent - Past Medical History Cardiac Medical History: Denies: Hx Congestive Heart Failure, Hx DVT, Hx Heart Attack, Hx Hypercholesterolemia, Hx Hypertension, Hx Pulmonary Embolism Pulmonary Medical History: Denies: Hx Asthma, Hx COPD Neurological Medical History: Denies: Hx Seizures Endocrine Medical History: Reports: Hx Diabetes Mellitus Type 1 - Insulin- dependent, metformin, lantus, and novalog. Denies: Hx Hyperthyroidism, Hx Hypothyroidism Renal/ Medical History: Reports: Hx Kidney Stones. Denies: Hx Peritoneal Dialysis GI Medical History: Reports: Hx Gastroesophageal Reflux Disease. Denies: Hx Cirrhosis, Hx Hepatitis Musculoskeltal Medical History: Denies Hx Arthritis Skin Medical History: Denies Hx Eczema, Denies Hx Psoriasis Psychiatric Medical History: Denies: Hx Depression Infectious Medical History: Denies: Hx Hepatitis Past Surgical History: Reports: Hx Cholecystectomy, Hx Tubal Ligation - Immunizations Hx Diphtheria, Pertussis, Tetanus Vaccination: Yes Physical Exam - Vital signs Vitals: Temp Pulse Resp BP Pulse Ox 98.3 F 91 20 104/64 97 04/23/16 13:49 04/23/16 13:49 04/23/16 13:49 04/23/16 13:49 04/23/16 13:49 Course - Vital Signs Vital signs: Temp Pulse Resp BP Pulse Ox 98.3 F 91 20 104/64 97 04/23/16 13:49 04/23/16 13:49 04/23/16 13:49 04/23/16 13:49 04/23/16 13:49
[2016-04-23 14:39] LABS: ABSOLUTE LYMPHOCYTES (AUTO) 1.4 10^3/uL (0.5-4.7); ABSOLUTE MONOCYTES (AUTO) 0.2 10^3/uL (0.1-1.4); ABSOLUTE NEUT (AUTO) 1.6 10^3/uL (1.7-8.2); BASOPHILS % (AUTO) 0.7 % (0-2); EOSINOPHILS % (AUTO) 0.9 % (0-6); HEMATOCRIT 39.6 % (36.0-47.0); HEMOGLOBIN 13.3 g/dL (12.0-15.5); HGB HCT DIFFERENCE 0.3; LYMPHOCYTES % (AUTO) 42.5 % (13-45); MEAN CORPUSCULAR HEMOGLOBIN 29.8 pg (27.0-33.4); MEAN CORPUSCULAR HGB CONC 33.6 g/dL (32.0-36.0); MEAN CORPUSCULAR VOLUME 89 fl (80-97); MONOCYTES % (AUTO) 6.6 % (3-13); RED BLOOD COUNT 4.47 10^6/uL (3.72-5.28); SEGMENTED NEUTROPHILS % (AUTO) 49.3 % (42-78); WHITE BLOOD COUNT 3.3 10^3/uL (4.0-10.5)
[2016-04-23 14:46] LABS: APPEARANCE,URINE CLEAR; BILIRUBIN,URINE NEGATIVE (NEGATIVE); GLUCOSE, URINE NEGATIVE (NEGATIVE); KETONES,URINE NEGATIVE (NEGATIVE); LEUKOCYTE ESTERASE,URINE NEGATIVE (NEGATIVE); NITRITE,URINE NEGATIVE (NEGATIVE); PROTEIN,URINE NEGATIVE (NEGATIVE); URINE SPECIFIC GRAVITY 1.009; UROBILINOGEN,URINE NEGATIVE mg/dL (<2.0)
[2016-04-23 14:58] LABS: ALANINE AMINOTRANSFERASE 54 U/L (9-52); ALBUMIN 3.2 g/dL (3.5-5.0); ALKALINE PHOSPHATASE 81 U/L (38-126); ANION GAP 8 (5-19); ASPARTATE AMINO TRANSFERASE 27 U/L (14-36); BILIRUBIN,TOTAL 0.3 mg/dL (0.2-1.3); BLOOD UREA NITROGEN 3 mg/dL (7-20); CALCIUM 8.9 mg/dL (8.4-10.2); CARBON DIOXIDE 30 mmol/L (22-30); CHLORIDE 102 mmol/L (98-107); CREATININE RESULT 0.46 mg/dL (0.52-1.25); GLUCOSE 119 mg/dL (75-110); POTASSIUM 3.6 mmol/L (3.6-5.0); SODIUM 139.9 mmol/L (137-145); TOTAL PROTEIN 6.1 g/dL (6.3-8.2)
--- NOTE | 2016-04-23 16:26 | ER Document Report ---
ED Flu Like - General Chief Complaint: Upper Abdominal Pain Stated Complaint: DIFFICULTY BREATHING Mode of Arrival: Ambulatory Notes: The patient is a 25-year-old female, past medical history diabetes type I, presents with 4 days of body aches, fatigue and intermittent fevers. She was diagnosed with Flu B 3 days ago and was admitted for DKA at that time. She left AMA yesterday because she had a family thing. She is still having cough, fevers and wheezing. Denies nausea, vomiting, abdominal pain or increased urination. TRAVEL OUTSIDE OF THE [place] IN LAST 30 DAYS: No - Related Data Allergies/Adverse Reactions: aspirin Allergy (Mild, Verified 04/23/16 14:01) Hives ibuprofen Allergy (Mild, Verified 04/23/16 14:01) Hives tramadol Allergy (Mild, Verified 04/23/16 14:01) Hives Past Medical History - General Information source: Patient - Social History Smoking Status: Current Every Day Smoker Chew tobacco use (# tins/day): Yes Family History: None Patient has suicidal ideation: No Patient has homicidal ideation: No - Past Medical History Cardiac Medical History: Denies: Hx Congestive Heart Failure, Hx DVT, Hx Heart Attack, Hx Hypercholesterolemia, Hx Hypertension, Hx Pulmonary Embolism Pulmonary Medical History: Denies: Hx Asthma, Hx COPD Neurological Medical History: Denies: Hx Seizures Endocrine Medical History: Reports: Hx Diabetes Mellitus Type 1 - Insulin- dependent, metformin, lantus, and novalog. Denies: Hx Hyperthyroidism, Hx Hypothyroidism Renal/ Medical History: Reports: Hx Kidney Stones. Denies: Hx Peritoneal Dialysis GI Medical History: Reports: Hx Gastroesophageal Reflux Disease. Denies: Hx Cirrhosis, Hx Hepatitis Musculoskeltal Medical History: Denies Hx Arthritis Skin Medical History: Denies Hx Eczema, Denies Hx Psoriasis Psychiatric Medical History: Denies: Hx Depression Infectious Medical History: Denies: Hx Hepatitis Past Surgical History: Reports: Hx Cholecystectomy, Hx Tubal Ligation - Immunizations Hx Diphtheria, Pertussis, Tetanus Vaccination: Yes Review of Systems - Review of Systems Notes: REVIEW OF SYSTEMS: CONSTITUTIONAL: +fevers, +chills EENT: -eye pain, -difficulty swallowing, -nasal congestion CARDIOVASCULAR: -chest pain, -syncope. RESPIRATORY: +cough, -SOB GASTROINTESTINAL: -abdominal pain, -nausea, -vomiting, -diarrhea GENITOURINARY: -dysuria, -hematuria MUSCULOSKELETAL: -back pain, -neck pain SKIN: -rash or skin lesions. HEMATOLOGIC: -easy bruising or bleeding. LYMPHATIC: -swollen, enlarged glands. NEUROLOGICAL: -altered mental status or loss of consciousness, -headache, - neurologic symptoms PSYCHIATRIC: -anxiety, -depression. ALL OTHER SYSTEMS REVIEWED AND NEGATIVE. Physical Exam - Vital signs Vitals: Temp Pulse Resp BP Pulse Ox 98.3 F 91 20 104/64 97 04/23/16 13:49 04/23/16 13:49 04/23/16 13:49 04/23/16 13:49 04/23/16 13:49 - Notes Notes: PHYSICAL EXAMINATION: GENERAL: Well-appearing, well-nourished and in no acute distress. HEAD: Atraumatic, normocephalic. EYES: Pupils equal round and reactive to light, extraocular movements intact, sclera anicteric, conjunctiva are normal. ENT: nares patent, oropharynx clear without exudates. Moist mucous membranes. NECK: Normal range of motion, supple without lymphadenopathy LUNGS: No respiratory distress. Mild wheezing bilaterally. HEART: Regular rate and rhythm without murmurs ABDOMEN: Soft, nontender, normoactive bowel sounds. No guarding, no rebound. No masses appreciated. EXTREMITIES: Normal range of motion, no pitting or edema. No cyanosis. NEUROLOGICAL: Cranial nerves grossly intact. Normal speech, normal gait. Normal sensory, motor, and reflex exams. PSYCH: Normal mood, normal affect. SKIN: Warm, Dry, normal turgor, no rashes or lesions noted. Course - Re-evaluation Re-evalutation: Patient is not in DKA at this time. Labs are unremarkable. Will treat her mild bronchitis with steroids and albuterol. Also provided smoking cessation. She has Flu B. instructed patient about symptomatic treatment for this. - Vital Signs Vital signs: Temp Pulse Resp BP Pulse Ox 98.1 F 74 16 113/61 99 04/23/16 17:18 04/23/16 17:18 04/23/16 17:18 04/23/16 17:18 04/23/16 17:18 - Laboratory Result Diagrams: 04/23/16 14:10 04/23/16 14:10 Laboratory results interpreted by me: 04/23/16 04/23/16 14:10 14:10 WBC 3.3 L RDW 15.0 H Plt Count 117 L Absolute Neutrophils 1.6 L BUN 3 L Creatinine 0.46 L Glucose 119 H ALT 54 H Total Protein 6.1 L Albumin 3.2 L Discharge - Discharge Clinical Impression: Bronchitis, Influenza Condition: Stable Disposition: HOME, SELF-CARE Additional Instructions: INFLUENZA: The physician feels that you have influenza -- the "flu". Influenza is an infection caused by a virus. Symptoms include generalized aching, fever, headache, dry cough, and fatigue. Some patients with the flu also have nausea, vomiting, and diarrhea. The fever and aches usually last two to four days, with the cough persisting another one to two weeks. Treatment of the flu, for the most part, is simply treatment of symptoms. Rest, drink plenty of fluids, and use acetaminophen for fever and aches. Do not take aspirin. There is an anti-viral medication, called Tamiflu, which may help in "type A" flu, but it's not helpful in every case of flu, and only works if started within the first 24 - 48 hours of the start of symptoms. The physician will determine whether this medication can help you. To prevent spread of the virus, use good handwashing. Shared toys should be cleaned with disinfectant. Clean the toilets, sinks, and counter surfaces in bathrooms. Launder clothing in hot water. What are conditions that should receive medical attention? The development of difficulty breathing. Lip color changes to blue or purple. Persistent vomiting and unable to keep liquids down with signs of dehydration such as: dizziness when standing, unable to urinate, or if child/infant is crying no tears are noticed. Is less responsive than normal or becomes confused. How do I decrease the spread of flu in my home? Taking care of the sick patient at home: Keep the sick person in a room separate from the common areas of the house. Keep the "sickroom" door closed. If the person with the flu needs to leave the home, they should cover their nose/mouth when coughing or sneezing and wear a disposable (surgical) mask if available. These masks may be available at your local pharmacy, medical supply and hardware store. If the sick person is in common areas of the house, have them wear a surgical mask. If possible, have the sick person use a separate bathroom that should be cleaned daily with a household disinfectant. If you are the caregiver: Avoid being face to face with the sick adult person as much as possible. Try to stay at least 6 feet away and wear a disposable surgical mask when possible. When holding small children who are sick, place their chin on your shoulder so that they will not cough in your face. Wash your hands after you touch the sick person or handle their tissues and laundry. Wear a mask if you leave home, as you may be infected from taking care of someone and not know it yet. Watch yourself and others in the home for flu symptoms and contact your doctor if symptoms occur. NOTE: Antiviral medication used to reduce the symptoms of the flu works only if taken within 48 hours, and best within 24 hours of symptom onset. Household Cleaning, laundry and waste disposal: Tissues and other disposable items used by the sick person should be thrown away in the trash. Wash your hands after touching these used items. No special waste disposal is required. Keep surfaces (especially bedside tables, bathroom surfaces, and toys for children) clean by wiping them down with a safe household disinfectant according to the directions on the product label. Per Center for Disease Control advice, most people will not receive testing to confirm flu. Also based on the person's health history and onset of symptoms, not all patients will receive prescriptions for antiviral medications. If you have questions related to this, please ask your healthcare provider. For more information, you can call the Centers for Disease Control and Prevention (CDC) Hotline at 4-644-MYUEdPuzzle This line is available in [place] and [place]ian, 24 hours a day, 7 days a week. Or www.[employer] or www.cdc.gov Flu-Like Illness Home Instructions: The influenza virus infection can cause a wide rage of symptoms, including: Fever, cough, sore throat, body aches, headaches, chills, fatigue, with some patients reporting diarrhea and vomiting Like seasonal influenza A, H1N1 ("swine flu")in humans can vary in severity from mild to severe Severe illness with pneumonia, respiratory failure and even is possible Certain groups might be more likely to develop a severe illness from H1N1 infection. Sometimes bacterial infections may occur at the same time as or after infection with influenza viruses and lead to pneumonias, ear infections, or sinus infections. How Flu Spreads The main way that influenza viruses spread is through respiratory droplets of coughs and sneezes. This can happen when someone with the infection coughs or sneezes and the particles fly through the air and land on other people and surfaces. If the person covers their mouth and nose with their hand but does not wash their hands immediately, then these germs are passed onto the next object that they touch. People with Influenza A or suspected H1N1 (swine flu) who are cared for at home should: Check with their doctor about any special care that they might need if they are or have a health condition such as diabetes, heart disease, asthma or emphysema. Also, limit caregiver to one (if possible). women or those with chronic health conditions should not take care of the flu patient unless necessary. Check with their doctor about whether or not medications are needed that may lessen the symptoms of the flu. Stay at home until 24 hours fever free without the use of fever reducing medication. Get plenty of rest and avoid other healthy people in your home. Drink plenty of clear liquids to keep from getting dehydrated. Take medications like Tylenol (Acetaminophen), Advil/Motrin/Nuprin ( Ibuprofen) or Aleve (Naproxen) for fevers and aches. All children under the age of 18 years of age should not take aspirin or products containing aspirin (e.g. Pepto Bismol), as this can cause a rare serious illness called Kaur Syndrome. Over the counter medications for flu and colds may help, but it is very important to follow the package directions. Remember that the medicine may help the symptoms, but it will not help prevent others from getting sick if they are around you. Cover coughs and sneezes using your bent arm. Clean hands with soap and water or an alcohol-based hand rub often, especially after using tissues to cough or sneeze. Encourage hand washing frequently for all people living in the home! The sick person should not have visitors other than caregivers. Encourage concerned loved ones to call instead of visit. Avoid close contact with others-do not go to work or school while sick. USE OF ACETAMINOPHEN (Tylenol): Acetaminophen may be taken for pain relief or fever control. It's much safer than aspirin, offering a wider range of "safe" dosages. It is safe during . Some brand names are Tylenol, Panadol, Datril, Anacin 3, Tempra, and Liquiprin. Acetaminophen can be repeated every four hours. The following are maximum recommended dosages: WEIGHT Dose Drops Elixir Chewable( 80mg) (LBS.) drprs=droppers tsp=teaspoon 6 40 mg 0.4 ml (1/2) 6-11 80 mg 0.8 ml (full) tsp 1 tab 12-16 120 mg 1 1/2 drprs 3/4 tsp 1 1/2 tabs 17-23 160 mg 2 drprs 1 tsp 2 tabs 24-30 240 mg 3 drprs 1 1/2 tsp 3 tabs 30-35 320 mg 2 tsp 4 tabs 36-41 360 mg 2 1/4 tsp 4 1/2 tabs 42-47 400 mg 2 1/2 tsp 5 tabs 48-53 480 mg 3 tsp 6 tabs 54-59 520 mg 3 1/4 tsp 6 1/2 tabs 60-64 560 mg 3 1/2 tsp 7 tabs 65-70 600 mg 3 3/4 tsp 7 1/2 tabs 71-76 640 mg 4 tsp 8 tabs 77-82 720 mg 4 1/2 tsp 9 tabs 83-88 800 mg 5 tsp 10 tabs >89 pounds or adults 650 mg to 900 mg Acetaminophen can be repeated every four hours. Maximum dose not to exceed 4000 mg a day. These maximum recommended dosages are slightly higher than the dosages written on the product container, but these dosages are very safe and below the toxic dosage for acetaminophen. FOLLOW-UP CARE: If you have been referred to a physician for follow-up care, call the physician s office for an appointment as you were instructed or within the next two days. If you experience worsening or a significant change in your symptoms, notify the physician immediately or return to the Emergency Department at any time for re-evaluation. BRONCHITIS: You have acute bronchitis. This disease is an infection or inflammation of the air passageways in your lungs. Symptoms usually include cough, low grade fever, shortness of breath, and wheezing. The cough usually persists for a couple of weeks. Most cases of bronchitis get better without antibiotics. We prescribe antibiotics when we believe bacteria are damaging your airways, or if there's high risk the bronchitis will worsen into pneumonia. Increase your fluid intake. A cool mist humidifier may make your lungs more comfortable. An expectorant (cough medicine that loosens phlegm) can help. If you smoke, STOP!!! Recovery from bronchitis can be somewhat slow, but you should see improvement within a day or two. Repeated episodes of bronchitis may result in lung damage -- for example, chronic bronchitis, recurrent pneumonias, or emphysema. Call the doctor if you develop increasing fever, shortness of breath, chest pain, bloody sputum, or otherwise worsen. If you have not improved at all after several days, contact the physician. BRONCHITIS WITH BRONCHOSPASM (WHEEZING): You have bronchitis with bronchospasm (wheezing). Sometimes people develop wheezing with a chest cold. This occurs either because of an underlying tendency toward asthma or because the virus itself irritates the bronchial tubes. This irritation causes cough, shortness of breath, and wheezing. Emergency treatment of bronchospasm may include adrenaline shots or bronchodilator aerosol. You may feel lightheaded and have a rapid pulse for an hour or two. Rest and get plenty of fluids. At home, we'll treat you with a bronchodilator inhaler. Corticosteroids may be required for some patients. Until you recover, avoid chemical fumes, dusts, pollens, and exercising in very cold or dry air. If you smoke, stop now! Most cases of bronchitis get better without antibiotics. We prescribe antibiotics when we believe bacteria are damaging your airways, or if there's high risk the bronchitis will worsen into pneumonia. Increase your fluid intake. A cool mist humidifier may make your lungs more comfortable. An expectorant (cough medicine that loosens phlegm) can help. Repeated episodes of bronchitis and bronchospasm may result in lung damage -- for example, chronic bronchitis, recurrent pneumonias, or emphysema. If you develop a fever, increased wheezing, chest pain, or severe shortness of breath, you should contact the doctor immediately. DECONGESTANT MEDICATION: A decongestant medicine has been prescribed. Often this medicine is combined in the same tablet with an antihistamine or expectorant. This type of medicine is helpful in treating a bad cold or sinus condition, as well as in treatment of the nasal congestion of hay fever. It is not of much benefit for lung infections. Decongestant medicines are related to stimulants. They can cause an increase in blood pressure and heart rate. Persons with heart disease and high blood pressure should not take decongestants without discussing this with the physician. If you develop palpitations, chest pain, headache, or tremors, stop the medicine and consult your physician. COUGH-SUPPRESSANT & EXPECTORANT MEDICATION: You are to use a cough medication as needed for relief of symptoms. This medicine is a combination of an expectorant (to make the mucous thinner and more easily "coughed up") and a cough suppressant (to reduce the frequency of coughing). The cough-suppressant medicine is related to narcotics. You may experience mild nausea and sleepiness. Some patients who are very sensitive to narcotics may have stomach pain from this medicine. Taking the medicine with food reduces these side effects. Do not drive or work with machinery until you know how this medicine affects you. The expectorant should have no side effects. Iodine-containing expectorants (such as organidin) should not be taken by persons with active thyroid disease unless approved by your doctor. Call the doctor if you develop shortness of breath, hives, rash, itching, lightheadedness, or severe nausea and vomiting. INHALED BRONCHODILATORS: You have received a treatment of and/or prescription for an inhaled bronchodilator -- a medication which stimulates the airways in the lung to dilate. This improves the flow of air in asthma, bronchitis, and emphysema. These medicines have some similarity to adrenaline, and can cause similar side effects: shakiness, racing heart, and a sense of nervousness. These side effects decrease with time. Contact your doctor if these side effects are severe. Do not over-use the medicine. Too-frequent use of the inhaler may make it ineffective. Call your doctor if the inhaler is not controlling your symptoms at the prescribed doses. STEROID MEDICATION: You have been given an injection of or oral medicine of the cortisone/ steroid class. This medication is used to control inflammation or allergy. Romain t is usually only given for a short period of time, until the acute process subsides. There are usually no side effects from short-term use of cortisone-like medications. Some persons feel an increased sense of well-being and are not sleepy at bedtime. Long-term use of cortisone medications is best avoided, unless required for a severe condition. If your condition does not remit, or relapses after the course of corticosteroid medication, you should consult your physician. USE OF ACETAMINOPHEN (Tylenol): Acetaminophen may be taken for pain relief or fever control. It's much safer than aspirin, offering a wider range of "safe" dosages. It is safe during . Some brand names are Tylenol, Panadol, Datril, Anacin 3, Tempra, and Liquiprin. Acetaminophen can be repeated every four hours. The following are maximum recommended dosages: >89 pounds or adults 650 mg to 900 mg Acetaminophen can be repeated every four hours. Maximum dose not to exceed 4000 mg a day. SMOKING: If you smoke, you should stop smoking. The tar and chemicals in cigarette smoke are harmful. Smoking has been shown to cause: emphysema chronic bronchitis lung cancer mouth and throat cancer stomach and pancreas cancer premature aging defects In addition, smoking increases ear and lung infections in children of smokers. FOLLOW-UP CARE: If you have been referred to a physician for follow-up care, call the physician s office for an appointment as you were instructed or within the next two days. If you experience worsening or a significant change in your symptoms, notify the physician immediately or return to the Emergency Department at any time for re-evaluation. Prescriptions: Albuterol Sulfate [Proair HFA Inhalation Aerosol 8.5 gm MDI] 2 puff IH Q4H PRN # 1 mdi PRN Reason: Prednisone 50 mg PO DAILY #5 tablet Referrals: DENVER STAFFORD PA-C [Primary Care Provider] - Follow up as needed
[2016-04-23 17:21] VITALS: BP 113/61
== END 2016-04-23 17:18 | disposition home or self-care (01) ==
LOC: ER 13:35
DX: J11.1 Influenza due to unidentified influenza virus with other respiratory manifestations (principal); J40 Bronchitis, not specified as acute or chronic; R05 Cough; R53.83 Other fatigue; R50.9 Fever, unspecified; E10.9 Type 1 diabetes mellitus without complications; F17.200 Nicotine dependence, unspecified, uncomplicated; Z88.6 Allergy status to analgesic agent; Z88.5 Allergy status to narcotic agent
CPT/HCPCS: 36415; 71020; 80053; 81001; 84703; 85025; 87040; 99283

== ENCOUNTER 2016-06-18 23:31 | Emergency (ER) | payer MEDICAID ==
[2016-06-18 23:55] VITALS: BP 126/72
== END 2016-06-19 04:55 | disposition left against medical advice (07) ==
LOC: ER 23:31
DX: Z53.21 Procedure and treatment not carried out due to patient leaving prior to being seen by health care provider (principal)

== ENCOUNTER 2016-06-19 09:18 | Emergency (ER) | payer MEDICAID ==
[2016-06-19 09:29] VITALS: BP 137/92
--- NOTE | 2016-06-19 09:50 | ER Document Report ---
HPI - HPI Patient complains to provider of: dental pain Onset: Other - 2 days Quality of pain: Achy Severity: Moderate Pain Level: 3 Context: Patient presents to the emergency department with complaints of upper front left side dental pain for the last couple days. She denies injury, reports it just started hurting. Patient has widespread dental decay. She reports she has an appointment with Dr. Levine and covert tomorrow. Patient denies other symptoms such as fever vomiting diarrhea. Reports when air touches her teeth the pain increases. Associated Symptoms: None Exacerbated by: Other - air Relieved by: Denies Similar symptoms previously: Yes Recently seen / treated by doctor: No - REPRODUCTIVE Reproductive: DENIES: : - DERM Skin Color: Normal Past Medical History - General Information source: Patient Last Menstrual Period: 06/14/16 - Social History Smoking Status: Current Every Day Smoker Cigarette use (# per day): Yes Chew tobacco use (# tins/day): No Smoking Education Provided: Yes Frequency of alcohol use: None Drug Abuse: None Family History: None Patient has suicidal ideation: No Patient has homicidal ideation: No - Past Medical History Cardiac Medical History: Denies: Hx Congestive Heart Failure, Hx DVT, Hx Heart Attack, Hx Hypercholesterolemia, Hx Hypertension, Hx Pulmonary Embolism Pulmonary Medical History: Denies: Hx Asthma, Hx COPD Neurological Medical History: Denies: Hx Seizures Endocrine Medical History: Reports: Hx Diabetes Mellitus Type 1 - Insulin- dependent, metformin, lantus, and novalog. Denies: Hx Hyperthyroidism, Hx Hypothyroidism Renal/ Medical History: Reports: Hx Kidney Stones. Denies: Hx Peritoneal Dialysis GI Medical History: Reports: Hx Gastroesophageal Reflux Disease. Denies: Hx Cirrhosis, Hx Hepatitis Musculoskeltal Medical History: Denies Hx Arthritis Skin Medical History: Denies Hx Eczema, Denies Hx Psoriasis Psychiatric Medical History: Denies: Hx Depression Infectious Medical History: Denies: Hx Hepatitis Past Surgical History: Reports: Hx Cholecystectomy, Hx Tubal Ligation - Immunizations Hx Diphtheria, Pertussis, Tetanus Vaccination: Yes Vertical Provider Document - CONSTITUTIONAL Agree With Documented VS: Yes Exam Limitations: No Limitations General Appearance: WD/WN, Mild Distress - holding warm pack against face - INFECTION CONTROL TRAVEL OUTSIDE OF THE [place] IN LAST 30 DAYS: No - HEENT HEENT: Atraumatic, Normocephalic Mouth Diagram: 1 - c/o pain, opens mouth wide, clear voice no trismus widespread dental decay , no pustule - NECK Neck: Normal Inspection, Supple. negative: Lymphadenopathy-Left, Lymphadenopathy-Right - RESPIRATORY Respiratory: Breath Sounds Normal, No Respiratory Distress O2 Sat by Pulse Oximetry: 100 - CARDIOVASCULAR Cardiovascular: Regular Rate - MUSCULOSKELETAL/EXTREMETIES Musculoskeletal/Extremeties: MAEW, FROM - NEURO Level of Consciousness: Awake, Alert, Appropriate Motor/Sensory: No Motor Deficit - DERM Integumentary: Warm, Dry Course - Re-evaluation Re-evalutation: 06/19/16 09:57 Past medical hx and narcotic prescriptions reviewed. Dr Menezes office contacted and appointment confirmed. Pt instructed to fu as scheduled. - Vital Signs Vital signs: Temp Pulse Resp BP Pulse Ox 98.9 F 97 14 137/92 H 100 06/19/16 09:26 06/19/16 09:26 06/19/16 09:26 06/19/16 09:26 06/19/16 09:26 Discharge - Discharge Clinical Impression: Pain, dental, Elevated blood pressure reading Condition: Stable Disposition: HOME, SELF-CARE Instructions: Oral Narcotic Medication ([facility]), Toothache ([facility]), Penicillin V K ( [facility]) Additional Instructions: *You have been evaluated for dental pain *Take medications as prescribed *Follow up with Dr. Levine and Dr Heath on Friday as scheduled *Return to ED for worsening condition, changes, needs Prescriptions: Acetaminophen with Codeine [Tylenol with Codeine #3 Tablet] 1 each PO QID #20 tablet Penicillin V Potassium [Penicillin Vk 500 mg Tablet] 500 mg PO BID #20 tablet Forms: Elevated Blood Pressure, Smoking Cessation Education
== END 2016-06-19 09:57 | disposition home or self-care (01) ==
LOC: ER 09:18
DX: K08.89 Other specified disorders of teeth and supporting structures (principal); R03.0 Elevated blood-pressure reading, without diagnosis of hypertension; F17.210 Nicotine dependence, cigarettes, uncomplicated
CPT/HCPCS: 99282

== ENCOUNTER 2016-06-22 11:40 | Emergency (ER) | payer MEDICAID ==
[2016-06-22 11:45] VITALS: BP 117/72
--- NOTE | 2016-06-22 12:08 | ER Document Report ---
ED General - General Chief Complaint: Dental Injury Stated Complaint: MOUTH PAIN Mode of Arrival: Ambulatory Information source: Patient Notes: 25-year-old female who has had extensive visits to the emergency department in the past 4 months presents with complaints of dental pain. Patient was just seen here a few days prior started on penicillin notes she went to her dentist next day and was told that she needs to have 4 teeth pulled next week Patient denies any fevers denies any actual bulging, TRAVEL OUTSIDE OF THE [place] IN LAST 30 DAYS: No - HPI Onset: Other Onset/Duration: Persistent Quality of pain: Achy Severity: Mild Pain Level: 1 Associated symptoms: Other Exacerbated by: Food Relieved by: Denies Similar symptoms previously: Yes Recently seen / treated by doctor: Yes - Related Data Allergies/Adverse Reactions: aspirin Allergy (Mild, Verified 06/19/16 09:26) Hives ibuprofen Allergy (Mild, Verified 06/19/16 09:26) Hives tramadol Allergy (Mild, Verified 06/19/16 09:26) Hives Past Medical History - Social History Smoking Status: Current Every Day Smoker Cigarette use (# per day): Yes Chew tobacco use (# tins/day): No Smoking Education Provided: No Family History: None Patient has suicidal ideation: No Patient has homicidal ideation: No - Past Medical History Cardiac Medical History: Denies: Hx Congestive Heart Failure, Hx DVT, Hx Heart Attack, Hx Hypercholesterolemia, Hx Hypertension, Hx Pulmonary Embolism Pulmonary Medical History: Denies: Hx Asthma, Hx COPD Neurological Medical History: Denies: Hx Seizures Endocrine Medical History: Reports: Hx Diabetes Mellitus Type 1 - Insulin- dependent, metformin, lantus, and novalog. Denies: Hx Hyperthyroidism, Hx Hypothyroidism Renal/ Medical History: Reports: Hx Kidney Stones. Denies: Hx Peritoneal Dialysis GI Medical History: Reports: Hx Gastroesophageal Reflux Disease. Denies: Hx Cirrhosis, Hx Hepatitis Musculoskeltal Medical History: Denies Hx Arthritis Skin Medical History: Denies Hx Eczema, Denies Hx Psoriasis Psychiatric Medical History: Denies: Hx Depression Infectious Medical History: Denies: Hx Hepatitis Past Surgical History: Reports: Hx Cholecystectomy, Hx Tubal Ligation - Immunizations Hx Diphtheria, Pertussis, Tetanus Vaccination: Yes Review of Systems - Review of Systems Notes: REVIEW OF SYSTEMS: CONSTITUTIONAL : Denies fever, chills, or sweats. Denies recent illness. EENT: Admits to dental pain CARDIOVASCULAR: Denies chest pain. Denies palpitations or racing or irregular heart beat. Denies ankle edema. RESPIRATORY: Denies cough, cold, or chest congestion. Denies shortness of breath, difficulty breathing, or wheezing. GASTROINTESTINAL: Denies abdominal pain or distention. Denies nausea, vomiting , or diarrhea. Denies blood in vomitus, stools, or per rectum. Denies black, tarry stools. Denies constipation. GENITOURINARY: Denies difficulty urinating, painful urination, burning, frequency, blood in urine, or discharge. FEMALE GENITOURINARY: Denies vaginal bleeding, heavy or abnormal periods, irregular periods. Denies vaginal discharge or odor. MUSCULOSKELETAL: Denies back or neck pain or stiffness. Denies joint pain or swelling. SKIN: Denies rash, lesions or sores. HEMATOLOGIC : Denies easy bruising or bleeding. LYMPHATIC: Denies swollen, enlarged glands. NEUROLOGICAL: Denies confusion or altered mental status. Denies passing out or loss of consciousness. Denies dizziness or lightheadedness. Denies headache. Denies weakness or paralysis or loss of use of either side. Denies problems with gait or speech. Denies sensory loss, numbness, or tingling. Denies seizures. PSYCHIATRIC: Denies anxiety or stress. Denies depression, suicidal ideation, or homicidal ideation. ALL OTHER SYSTEMS REVIEWED AND NEGATIVE. Dictation was performed using [employer] voice recognition software PHYSICAL EXAMINATION: GENERAL: Well-appearing, well-nourished and in no acute distress. HEAD: Atraumatic, normocephalic. EYES: Pupils equal round extraocular movements intact, conjunctiva are normal. ENT: Extremely poor dentition noted all throughout, patient notes tenderness to teeth 7 through 10 no abscess airway patent uvula midline NECK: Normal range of motion LUNGS: No respiratory distress Musculoskeletal: Normal range of motion NEUROLOGICAL: Normal speech, normal gait. PSYCH: Normal mood, normal affect. SKIN: Warm, Dry, normal turgor, no rashes or lesions noted. Physical Exam - Vital signs Vitals: Temp Pulse Resp BP Pulse Ox 97.7 F 102 H 16 117/72 97 06/22/16 11:42 06/22/16 11:42 06/22/16 11:42 06/22/16 11:42 06/22/16 11:42 Course - Re-evaluation Re-evalutation: 06/22/16 12:13 Patient will be switched from penicillin to clindamycin, will be given chlorhexidine mouthwash for her gum disease. Otherwise patient resting comfortably, is noted to have been seen in the emergency department 18 times in the past 4 months, with majority being related to pain. I do not believe any further narcotics are appropriate for this patient 06/22/16 12:14 After performing a Medical Screening Examination, I estimate there is LOW risk for a DEEP SPACE INFECTION (e.g., INNA'S ANGINA OR RETROPHARYNGEAL ABSCESS), MENINGITIS, INTRACRANIAL HEMORRHAGE, or AIRWAY COMPROMISE, thus I consider the discharge disposition reasonable. Also, there is no evidence or peritonitis, sepsis, or toxicity. I have reevaluated this patient multiple times and no significant life threatening changes are noted. The patient and I have discussed the diagnosis and risks, and we agree with discharging home with close follow-up with the understanding that symptoms and presentations can change. We also discussed returning to the Emergency Department immediately if new or worsening symptoms occur. We have discussed the symptoms which are most concerning (e.g., changing or worsening pain, trouble swallowing or breathing, neck stiffness or fever) that necessitate immediate return. - Vital Signs Vital signs: Temp Pulse Resp BP Pulse Ox 97.7 F 102 H 16 117/72 97 06/22/16 11:42 06/22/16 11:42 06/22/16 11:42 06/22/16 11:42 06/22/16 11:42 Discharge - Discharge Clinical Impression: Pain, dental Condition: Stable Disposition: HOME, SELF-CARE Instructions: Toothache ([facility]) Additional Instructions: Please continue follow-up with your dentist return immediately if there are any other concerns Prescriptions: Chlorhexidine Gluconate 15 ml MM BID 14 Days Clindamycin HCl 300 mg PO Q6 #40 capsule
== END 2016-06-22 12:26 | disposition home or self-care (01) ==
LOC: ER 11:40
DX: K08.89 Other specified disorders of teeth and supporting structures (principal); F17.210 Nicotine dependence, cigarettes, uncomplicated
CPT/HCPCS: 99282

== ENCOUNTER 2016-06-30 17:34 | Emergency (ER) | payer MEDICAID ==
[2016-06-30] MEDS ORDERED: NORMAL SALINE 1000 ML 1,000 ML IV ONE (18:07)
[2016-06-30] MEDS ORDERED: ONDANSETRON HCL INJ/PF 4 MG/2 ML SDV IV ONE (18:07)
--- NOTE | 2016-06-30 18:10 | ER Document Report ---
ED Medical Screen (RME) - General Stated Complaint: BLOOD SUGAR PROBLEM Notes: Patient is an insulin-dependent diabetic for the past 9 months who has noted her blood sugar to be high today. Couple of hours ago, her readings were over 600. The only site of infection the patient has is her gums and teeth which are in bad shape for a couple of weeks and she has scheduled for them to be pulled July 08. She has been on 2 different antibiotics in the past couple of weeks. Denies any nausea or vomiting, but unable to eat or drink. She has pain in the right flank, kidney area and burning with urination. Does not think she's had a fever. PMH: BTL, IDDM, cholecystectomy. TRAVEL OUTSIDE OF THE [place] IN LAST 30 DAYS: No - Related Data Allergies/Adverse Reactions: aspirin Allergy (Mild, Verified 06/30/16 17:51) Hives ibuprofen Allergy (Mild, Verified 06/30/16 17:51) Hives tramadol Allergy (Mild, Verified 06/30/16 17:51) Hives Past Medical History - Social History Family history: Reviewed & Not Pertinent - Past Medical History Cardiac Medical History: Denies: Hx Congestive Heart Failure, Hx DVT, Hx Heart Attack, Hx Hypercholesterolemia, Hx Hypertension, Hx Pulmonary Embolism Pulmonary Medical History: Denies: Hx Asthma, Hx COPD Neurological Medical History: Denies: Hx Seizures Endocrine Medical History: Reports: Hx Diabetes Mellitus Type 1 - Insulin- dependent, metformin, lantus, and novalog. Denies: Hx Hyperthyroidism, Hx Hypothyroidism Renal/ Medical History: Reports: Hx Kidney Stones. Denies: Hx Peritoneal Dialysis GI Medical History: Reports: Hx Gastroesophageal Reflux Disease. Denies: Hx Cirrhosis, Hx Hepatitis Musculoskeltal Medical History: Denies Hx Arthritis Skin Medical History: Denies Hx Eczema, Denies Hx Psoriasis Psychiatric Medical History: Denies: Hx Depression Infectious Medical History: Denies: Hx Hepatitis Past Surgical History: Reports: Hx Cholecystectomy, Hx Tubal Ligation - Immunizations Hx Diphtheria, Pertussis, Tetanus Vaccination: Yes Physical Exam - Vital signs Vitals: Temp Pulse Resp BP Pulse Ox 98.2 F 97 18 114/75 100 06/30/16 17:50 06/30/16 17:50 06/30/16 17:50 06/30/16 17:50 06/30/16 17:50 Course - Vital Signs Vital signs: Temp Pulse Resp BP Pulse Ox 98.2 F 97 18 114/75 100 06/30/16 17:50 06/30/16 17:50 06/30/16 17:50 06/30/16 17:50 06/30/16 17:50
[2016-06-30 18:49] LABS: ABSOLUTE BASOPHILS # (AUTO) 0.1 10^3/uL (0.0-0.2); ABSOLUTE EOSINOPHILS # (AUTO) 0.1 10^3/uL (0.0-0.6); ABSOLUTE LYMPHOCYTES (AUTO) 2.3 10^3/uL (0.5-4.7); ABSOLUTE MONOCYTES (AUTO) 0.5 10^3/uL (0.1-1.4); ABSOLUTE NEUT (AUTO) 4.2 10^3/uL (1.7-8.2); BASOPHILS % (AUTO) 0.8 % (0-2); EOSINOPHILS % (AUTO) 1.9 % (0-6); HEMATOCRIT 43.6 % (36.0-47.0); HGB HCT DIFFERENCE 1.4; LYMPHOCYTES % (AUTO) 31.5 % (13-45); MEAN CORPUSCULAR HEMOGLOBIN 30.7 pg (27.0-33.4); MEAN CORPUSCULAR HGB CONC 34.5 g/dL (32.0-36.0); MEAN CORPUSCULAR VOLUME 89 fl (80-97); MONOCYTES % (AUTO) 7.1 % (3-13); RED CELL DISTRIBUTION WIDTH 13.4 % (11.5-14.0); SEGMENTED NEUTROPHILS % (AUTO) 58.7 % (42-78); WHITE BLOOD COUNT 7.2 10^3/uL (4.0-10.5)
[2016-06-30 18:56] LABS: APPEARANCE,URINE CLEAR; BILIRUBIN,URINE NEGATIVE (NEGATIVE); GLUCOSE, URINE >=500 mg/dL (NEGATIVE); KETONES,URINE 80 mg/dL (NEGATIVE); LEUKOCYTE ESTERASE,URINE NEGATIVE (NEGATIVE); NITRITE,URINE NEGATIVE (NEGATIVE); PROTEIN,URINE NEGATIVE (NEGATIVE); URINE SPECIFIC GRAVITY 1.033; UROBILINOGEN,URINE NEGATIVE mg/dL (<2.0)
[2016-06-30 19:04] LABS: ALANINE AMINOTRANSFERASE 24 U/L (9-52); ALBUMIN 4.4 g/dL (3.5-5.0); ALKALINE PHOSPHATASE 109 U/L (38-126); ASPARTATE AMINO TRANSFERASE 10 U/L (14-36); BILIRUBIN,DIRECT 0.3 mg/dL (0.0-0.4); BILIRUBIN,TOTAL 0.5 mg/dL (0.2-1.3); BLOOD UREA NITROGEN 7 mg/dL (7-20); CALCIUM 9.5 mg/dL (8.4-10.2); CARBON DIOXIDE 23 mmol/L (22-30); CHLORIDE 91 mmol/L (98-107); CREATININE RESULT 0.47 mg/dL (0.52-1.25); POTASSIUM 4.4 mmol/L (3.6-5.0); SODIUM 136.1 mmol/L (137-145); TOTAL PROTEIN 6.8 g/dL (6.3-8.2)
[2016-06-30 19:16] LABS: ANION GAP 22 (5-19)
[2016-06-30 19:19] LABS: GLUCOSE 492 mg/dL (75-110)
[2016-06-30] MEDS ORDERED: INSULIN REG, HUMAN 100 UNIT/ML 3 ML VIAL (PYX) IV ONE (19:22)
[2016-06-30] MEDS ORDERED: FENTANYL CITRATE INJ/PF 100 MCG/2 ML AMPUL IV ONE (19:38)
--- NOTE | 2016-06-30 19:41 | ER Document Report ---
ED General - General Chief Complaint: High Blood Sugar Stated Complaint: BLOOD SUGAR PROBLEM Notes: Patient is a 25-year-old female who presents for the 19th time since January 2016 for a pain-related complaints. She is here today complaining of hyperglycemia as well as right flank pain. No central blood sugars have been elevated at home by her use of insulin. She frequently has hyperglycemia when she presents to the emergency department. She has been admitted once for diabetic ketoacidosis based on chart review. She is complaining of a constant, dull, aching pain to her right flank. States this feels similar to what she's had kidney infections in the past. She has had associated nausea without vomiting or diarrhea. She also reports that she has dental pain that is "so bad I can't eat" Nothing improves or worsens her symptoms. She has not seen a primary care doctor regarding today's concerns. TRAVEL OUTSIDE OF THE [place] IN LAST 30 DAYS: No - Related Data Allergies/Adverse Reactions: aspirin Allergy (Mild, Verified 06/30/16 17:51) Hives ibuprofen Allergy (Mild, Verified 06/30/16 17:51) Hives tramadol Allergy (Mild, Verified 06/30/16 17:51) Hives Past Medical History - General Information source: Patient - Social History Smoking Status: Never Smoker Chew tobacco use (# tins/day): No Frequency of alcohol use: None Drug Abuse: None Family History: Reviewed & Not Pertinent Patient has suicidal ideation: No Patient has homicidal ideation: No - Past Medical History Cardiac Medical History: Denies: Hx Congestive Heart Failure, Hx DVT, Hx Heart Attack, Hx Hypercholesterolemia, Hx Hypertension, Hx Pulmonary Embolism Pulmonary Medical History: Denies: Hx Asthma, Hx COPD Neurological Medical History: Denies: Hx Seizures Endocrine Medical History: Reports: Hx Diabetes Mellitus Type 1 - Insulin- dependent, metformin, lantus, and novalog. Denies: Hx Hyperthyroidism, Hx Hypothyroidism Renal/ Medical History: Reports: Hx Kidney Stones. Denies: Hx Peritoneal Dialysis GI Medical History: Reports: Hx Gastroesophageal Reflux Disease. Denies: Hx Cirrhosis, Hx Hepatitis Musculoskeltal Medical History: Denies Hx Arthritis Skin Medical History: Denies Hx Eczema, Denies Hx Psoriasis Psychiatric Medical History: Denies: Hx Depression Infectious Medical History: Denies: Hx Hepatitis Past Surgical History: Reports: Hx Cholecystectomy, Hx Tubal Ligation - Immunizations Hx Diphtheria, Pertussis, Tetanus Vaccination: Yes Review of Systems - Review of Systems Notes: Constitutional: Negative for fever. HENT: Negative for sore throat. Eyes: Negative for visual changes. Cardiovascular: Negative for chest pain. Respiratory: Negative for shortness of breath. Gastrointestinal: Negative for abdominal pain, positive for nausea. Genitourinary: Negative for dysuria. Positive for flank pain Musculoskeletal: Negative for back pain. Skin: Negative for rash. Neurological: Negative for headaches, weakness or numbness. 10 point ROS negative except as marked above and in HPI. Physical Exam - Vital signs Vitals: Temp Pulse Resp BP Pulse Ox 98.2 F 97 18 114/75 100 06/30/16 17:50 06/30/16 17:50 06/30/16 17:50 06/30/16 17:50 06/30/16 17:50 Interpretation: Normal Notes: PHYSICAL EXAMINATION: GENERAL: Tearful, anxious HEAD: Atraumatic, normocephalic. EYES: Pupils equal round and reactive to light, extraocular movements intact, sclera anicteric, conjunctiva are normal. ENT: nares patent, oropharynx clear without exudates. Moist mucous membranes. NECK: Normal range of motion, supple without lymphadenopathy LUNGS: Breath sounds clear to auscultation bilaterally and equal. No wheezes rales or rhonchi. HEART: Regular rate and rhythm without murmurs ABDOMEN: Soft, nontender, normoactive bowel sounds. No guarding, no rebound. No masses appreciated. Mild right CVA tenderness. EXTREMITIES: Normal range of motion, no pitting or edema. No cyanosis. NEUROLOGICAL: No focal neurological deficits. Moves all extremities spontaneously and on command. PSYCH: Anxious, tearful SKIN: Warm, Dry, normal turgor, no rashes or lesions noted. Course - Re-evaluation Re-evalutation: 06/30/16 19:39 Patient presents for the 19th time to the emergency room since January 2016 with complaints of hyperglycemia and right flank pain. Patient has recently seen for either dental pain, abdominal pain, flank pain and often has associated hyperglycemia. Her laboratories do not show evidence of diabetic ketoacidosis as her bicarbonate is completely normal. She does have hyperglycemia. Will obtain a venous blood gas to exclude DKA. Patient is asking for narcotic pain medications and states that she is unable to eat secondary to her dental pain which she has been seen for this emergency department repeatedly. She does have focal tenderness to the right flank. Will treat with IV fluids, insulin, tylenol and obtain a CT of the abdomen pelvis without IV or oral contrast to evaluate for acute nephrolithiasis with associated obstruction given her degree of pain on exam. 06/30/16 21:19 CT does not demonstrate any evidence of acute urolithiasis, does show a renal calculus which would not be the cause of patient's pain. Patient does demonstrate significant drug-seeking behavior. As mentioned previously this is her 19th visit to the emergency department for pain-related complaints in just 6 months. Patient is upset with me for not providing her narcotics here today and I will not do so. I have instructed her that she will not receive narcotics in this emergency department.At this time will discharge with return precautions and follow-up recommendations. Verbal discharge instructions given a the bedside and opportunity for questions given. Medication warnings reviewed. Patient is in agreement with this plan and has verbalized understanding of return precautions and the need for primary care follow-up in the next 24-72 hours. - Vital Signs Vital signs: Temp Pulse Resp BP Pulse Ox 97.3 F 87 16 98/56 L 98 06/30/16 20:22 06/30/16 21:38 06/30/16 21:38 06/30/16 21:38 06/30/16 21:38 - Laboratory Result Diagrams: 06/30/16 18:15 06/30/16 18:15 Laboratory results interpreted by me: 06/30/16 06/30/16 06/30/16 18:15 18:15 19:42 Sodium 136.1 L Chloride 91 L Anion Gap 22 H Creatinine 0.47 L Glucose 492 H* POC Glucose 379 H AST 10 L Urine Glucose (UA) >=500 H Urine Ketones 80 H Urine Blood LARGE H 06/30/16 21:31 Sodium Chloride Anion Gap Creatinine Glucose POC Glucose 217 H AST Urine Glucose (UA) Urine Ketones Urine Blood - Diagnostic Test Radiology reviewed: Reports reviewed Discharge - Discharge Clinical Impression: Right flank pain, Hyperglycemia Condition: Fair Disposition: HOME, SELF-CARE Additional Instructions: Your labs and CT scan are normal with the exception of high blood sugar.You need to followup urgently with your primary care doctor as your blood sugars were dangerously high today. You did not have any evidence of a dangerous condition associated with these blood sugars at this time. However, it is very important that you get your blood sugars under control. Please take all of your medications exactly as directed. You should avoid foods that are high in carbohydrates and sugary foods. Losing weight will also help to better control your blood sugars. Please return to emergency department immediately if you develop weakness, persistent vomiting, confusion, or any other symptoms that are concerning to you. Referrals: DENVER STAFFORD PA-C [Primary Care Provider] - Follow up as needed
[2016-06-30] MEDS ORDERED: ACETAMINOPHEN 325 MG TABLET PO ONE (19:42)
[2016-06-30 20:28] LABS: VENOUS BLOOD BASE EXCESS -3.5 mmol/L; VENOUS BLOOD PCO2 41.2 mmHg (35-63); VENOUS BLOOD PH 7.35 (7.30-7.42)
[2016-06-30 21:40] VITALS: BP 98/56
== END 2016-06-30 21:39 | disposition home or self-care (01) ==
LOC: ER 17:34
DX: E11.65 Type 2 diabetes mellitus with hyperglycemia (principal); R10.9 Unspecified abdominal pain; Z79.4 Long term (current) use of insulin
CPT/HCPCS: 99284; 96374; 36415; 82962; 83690; 84703; 85025; 80053; 81001; 82803; 74176; J3490; J1815; J2405; J7030

== ENCOUNTER 2016-07-09 17:29 | Emergency (ER) | payer MEDICAID ==
[2016-07-09 17:45] VITALS: BP 126/79
--- NOTE | 2016-07-09 18:18 | ER Document Report ---
ED Oral Problem - General Chief Complaint: Mouth Problem Stated Complaint: SWOLLEN JAW Time seen by provider: 18:19 Mode of Arrival: Ambulatory TRAVEL OUTSIDE OF THE [place].S. IN LAST 30 DAYS: No - HPI Patient complains to provider of: Swelling of face, Swelling of jaw Onset: Yesterday Onset: Gradual Quality of pain: Sharp, Throbbing Severity: Moderate Pain Level: 4 Context: Recent dental extractions Associated symptoms: Other - Mouth and gum pains after having 4 teeth removed yesterday Worsened by: Cold Relieved by: Nothing Similar symptoms previously: Yes Recently seen / treated by doctor/dentist: Yes - Related Data Allergies/Adverse Reactions: aspirin Allergy (Mild, Verified 07/09/16 17:41) Hives ibuprofen Allergy (Mild, Verified 07/09/16 17:41) Hives tramadol Allergy (Mild, Verified 07/09/16 17:41) Hives Past Medical History - General Information source: Patient - Social History Smoking Status: Current Every Day Smoker Cigarette use (# per day): Yes - pack per day Chew tobacco use (# tins/day): No Smoking Education Provided: Yes - less than 2 minutes Frequency of alcohol use: Occasional Drug Abuse: None Lives with: Family Family History: Malignancy, Thyroid Disfunction - Thyroid cancer Patient has suicidal ideation: No Patient has homicidal ideation: No - Past Medical History Cardiac Medical History: Reports: None Pulmonary Medical History: Reports: None EENT Medical History: Reports: None Neurological Medical History: Reports: None Endocrine Medical History: Reports: Hx Diabetes Mellitus Type 1 - Insulin- dependent, metformin, lantus, and novalog Renal/ Medical History: Reports: Hx Kidney Stones, Hx Ovarian Cysts Malignancy Medical History: Reports: None GI Medical History: Reports: Hx Gastroesophageal Reflux Disease Musculoskeltal Medical History: Reports Hx Musculoskeletal Deformity, Reports Hx Musculoskeletal Trauma Skin Medical History: Reports None Psychiatric Medical History: Reports: Hx Anxiety Traumatic Medical History: Reports: None Infectious Medical History: Reports: None Past Surgical History: Reports: Hx Cholecystectomy, Hx Oral Surgery - Dental surgery, Hx Tubal Ligation - Immunizations Hx Diphtheria, Pertussis, Tetanus Vaccination: Yes Review of Systems - Review of Systems Constitutional: No symptoms reported EENT: Mouth pain, Mouth swelling, Other - 14th removed yesterday upper front Cardiovascular: No symptoms reported Respiratory: No symptoms reported Gastrointestinal: No symptoms reported Genitourinary: No symptoms reported Female Genitourinary: No symptoms reported Musculoskeletal: No symptoms reported Skin: No symptoms reported Hematologic/Lymphatic: No symptoms reported Neurological/Psychological: No symptoms reported -: Yes All other systems reviewed and negative Physical Exam - Vital signs Vitals: Temp Pulse Resp BP Pulse Ox 97.8 F 80 16 126/79 H 100 07/09/16 17:43 07/09/16 17:43 07/09/16 17:43 07/09/16 17:43 07/09/16 17:43 Interpretation: Normal - General General appearance: Appears well, Alert - HEENT Head: Normocephalic, Atraumatic Eyes: Normal Pupils: PERRL Ears: Normal External canal: Normal Tympanic membrane: Normal Sinus: Normal Nasal: Normal Mouth/Lips: Other - Recent dental extractions Mucous membranes: Normal Teeth diagram: 1 - Front 4 teeth removed yesterday, sutures intact, gums red swollen. Area very tender to touch. Pharynx: Normal Neck: Normal - Respiratory Respiratory status: No respiratory distress Chest status: Nontender Breath sounds: Normal Chest palpation: Normal - Cardiovascular Rhythm: Regular Heart sounds: Normal auscultation Murmur: No - Abdominal Inspection: Normal Distension: No distension Bowel sounds: Normal Tenderness: Nontender Organomegaly: No organomegaly - Back Back: Normal, Nontender - Extremities General upper extremity: Normal inspection, Nontender, Normal color, Normal ROM , Normal temperature General lower extremity: Normal inspection, Nontender, Normal color, Normal ROM , Normal temperature, Normal weight bearing. No: Raúl's sign - Neurological Neuro grossly intact: Yes Cognition: Normal Orientation: AAOx4 Melita Coma Scale Eye Opening: Spontaneous [place] Coma Scale Verbal: Oriented [place] Coma Scale Motor: Obeys Commands Melita Coma Scale Total: 15 Speech: Normal Motor strength normal: LUE, RUE, LLE, RLE Sensory: Normal - Psychological Associated symptoms: Normal affect, Normal mood - Skin Skin Temperature: Warm Skin Moisture: Dry Skin Color: Normal Course - Re-evaluation Re-evalutation: 07/09/16 18:43 Patient was given a prescription for Pen-Vee K and [place] for her recent dental extraction with swollen gums. Patient to follow-up with her dentist by telephone tomorrow. - Vital Signs Vital signs: Temp Pulse Resp BP Pulse Ox 97.8 F 80 16 126/79 H 100 07/09/16 17:43 07/09/16 17:43 07/09/16 17:43 07/09/16 17:43 07/09/16 17:43 Discharge - Discharge Clinical Impression: recent dental extraction 4 teeth Condition: Stable Disposition: HOME, SELF-CARE Additional Instructions: TOOTHACHE: Your pain is due to surgical removal of 4 teeth. You will, therefore, be referred to a dentist. We do not have dentists on the staff at [facility]. Severe swelling usually means infection you will need to follow up with the dentist promptly. This also requires evaluation and treatment by the dentist, but antibiotics may be prescribed while awaiting dental treatment. You should be rechecked immediately if you develop major swelling of the face, increasing pain, a lump in the jaw or gums, headache, difficulty swallowing, or fever. ORAL NARCOTIC MEDICATION: You have been given a prescription for pain control. This medication is a narcotic. It's best taken with food, as nausea can result if taken on an empty stomach. Don't operate machinery or drive within six hours of taking this medication. Do not combine this medicine with alcohol, or with any medication which can cause sedation (such as cold tablets or sleeping pills) unless you get permission from the physician. Narcotics tend to cause constipation. If possible, drink plenty of fluids and eat a diet high in fiber and fruits. Please be aware that prescription narcotics also have the potential for abuse. People become addicted to these medications because of the general sense of wellbeing that they induce. This feeling along with a significant reduction in tension, anxiety, and aggression provides a stimulating seductive quality to these drugs. Once your pain is under control, we encourage you to discard your unused narcotics. PENICILLIN V K: You have been given a prescription for Penicillin VK. Your physician has determined that this is the best antibiotic for your condition. Pen VK can be taken with meals, however more of the antibiotic gets into the bloodstream if it's taken on an empty stomach. Penicillin usually has no side effects. However, allergy to penicillins is common. If you have had an allergic reaction to any drug of the penicillin family, you should never take any other penicillin. Notify your doctor at once if you develop hives, itching, swelling, faintness, or shortness of breath. FOLLOW-UP CARE: You have been referred for follow-up care to the dentists listed below. Call the dentists office for an appointment as you were instructed or within the next two days. If you experience worsening or a significant change in your symptoms, notify the physician immediately or return to the Emergency Department at any time for re-evaluation. [facility] [address] [place] [address] Count Includes [facility] [place] [address] [facility] [address] [facility] [place] [address] [email or web address] [address] [place] [address] Friday- 8:00am to 5:00 pm Will see patients from other [facility]. Charges based on income and family size and accepts Medicare, Medicaid, and Insurances Will pull molars [facility] [id number] Hours of Operation 8:00 am - 4:30 pm weekdays The following dental offices accept Medicaid: [facility] Dr. Tinajero Dr. Mccormick Dr. Cruz Dr. Cash Agustín Zhao Luts[place], and Isaiah oral surgery Dr. Cortez ([place]) Dr. Heath (Gilberto Santana) [facility] Drs. Cali and Gold ([place]) Dr. Joshua ([place]) [facility] Dr. Clements ([place]) Drs. Riddle and ([place]) Medicaid Care Line Prescriptions: Hydrocodone/Acetaminophen [[place]ver 5-325 mg Tablet] 1 tab PO Q6HP PRN #14 tablet PRN Reason: Penicillin V Potassium [Penicillin Vk 500 mg Tablet] 500 mg PO QID #28 tablet Forms: Smoking Cessation Education, Elevated Blood Pressure
== END 2016-07-09 18:28 | disposition home or self-care (01) ==
LOC: ER 17:29
DX: K08.89 Other specified disorders of teeth and supporting structures (principal); R22.0 Localized swelling, mass and lump, head; R68.84 Jaw pain; F17.210 Nicotine dependence, cigarettes, uncomplicated
CPT/HCPCS: 99282

== ENCOUNTER 2016-07-15 18:04 | Emergency (ER) | payer MEDICAID ==
[2016-07-15] MEDS ORDERED: CEPHALEXIN 500 MG CAPSULE PO ONE (19:39)
[2016-07-15] MEDS ORDERED: METRONIDAZOLE 500 MG TABLET PO ONE (19:39)
[2016-07-15] MEDS ORDERED: LIDOCAINE 1% INJ-PF (10 MG/ML) 30 ML SDV INJ ONE (19:41)
[2016-07-15] MEDS ORDERED: OXYCODONE-ACETAMINOPHEN 5-325 MG TABLET PO ONE (19:41)
[2016-07-15] MEDS ORDERED: HYDROCODONE/ACETAMINOPHEN 5-325 MG 6 TAB/DSPK PO PRN (20:31)
--- NOTE | 2016-07-15 20:31 | ER Document Report ---
HPI - HPI Patient complains to provider of: abscess Pain Level: 4 Context: Patient is a 25 year old female who presents with asbcess of left buttocks that presented about 5 days ago with drainage. pain with sitting, denies fevers, chills. patient has a history of frequent abscesses PMH: DM type 1 PCP: Giovanni PA - REPRODUCTIVE Reproductive: DENIES: : - DERM Skin Color: Normal Past Medical History - Social History Smoking Status: Unknown if Ever Smoked Family History: Malignancy, Thyroid Disfunction - Thyroid cancer Patient has suicidal ideation: No Patient has homicidal ideation: No - Past Medical History Cardiac Medical History: Denies: Hx Congestive Heart Failure, Hx DVT, Hx Heart Attack, Hx Hypercholesterolemia, Hx Hypertension, Hx Pulmonary Embolism Pulmonary Medical History: Denies: Hx Asthma, Hx COPD Neurological Medical History: Denies: Hx Seizures Endocrine Medical History: Reports: Hx Diabetes Mellitus Type 1 - Insulin- dependent, metformin, lantus, and novalog. Denies: Hx Hyperthyroidism, Hx Hypothyroidism Renal/ Medical History: Reports: Hx Kidney Stones, Hx Ovarian Cysts. Denies: Hx Peritoneal Dialysis GI Medical History: Reports: Hx Gastroesophageal Reflux Disease. Denies: Hx Cirrhosis, Hx Hepatitis Musculoskeltal Medical History: Denies Hx Arthritis, Reports Hx Musculoskeletal Deformity, Reports Hx Musculoskeletal Trauma Skin Medical History: Denies Hx Eczema, Denies Hx Psoriasis Psychiatric Medical History: Reports: Hx Anxiety Denies: Hx Depression Infectious Medical History: Denies: Hx Hepatitis Past Surgical History: Reports: Hx Cholecystectomy, Hx Oral Surgery - Dental surgery, Hx Tubal Ligation - Immunizations Hx Diphtheria, Pertussis, Tetanus Vaccination: Yes Vertical Provider Document - CONSTITUTIONAL Agree With Documented VS: Yes Exam Limitations: No Limitations General Appearance: WD/WN, No Apparent Distress Notes: PHYSICAL EXAM GENERAL: Alert, interacts well. NEUROLOGICAL: Alert and oriented x4. Normal speech. PSYCH: Normal affect, normal mood. - INFECTION CONTROL TRAVEL OUTSIDE OF THE [place].S. IN LAST 30 DAYS: No - DERM Integumentary: Warm, Dry, No Rash, Abscess Adult Front & Back Diagram: 1 - 3x3 abscess with scab ontop Course - Re-evaluation Re-evalutation: 07/15/16 21:03 Abscess drained with about 10 mL of purulent fluid. Patient initiated on antibiotics to cover for previous microbiology positive for Pepto streptococcus Discharge - Discharge Clinical Impression: Abscess Condition: Good Disposition: HOME, SELF-CARE Instructions: Abscess ([facility]), Cephalexin ([facility]), Post Incision and Drainage Prescriptions: Cephalexin Monohydrate [Keflex 500 mg Capsule] 500 mg PO BID 5 Days Metronidazole [Flagyl 500 mg Tablet] 500 mg PO BID 5 Days Referrals: DENVER STAFFORD PA-C [Primary Care Provider] - Follow up as needed
[2016-07-15 21:00] VITALS: BP 124/84
== END 2016-07-15 20:45 | disposition home or self-care (01) ==
LOC: ER 18:04
DX: L02.31 Cutaneous abscess of buttock (principal); E10.9 Type 1 diabetes mellitus without complications
CPT/HCPCS: 99283; 87070; 87205; 87075; 87077; J3490 ×2

== ENCOUNTER 2016-08-08 19:25 | Emergency (ER) | payer MEDICAID ==
--- NOTE | 2016-08-08 22:19 | ER Document Report ---
ED Blood Sugar Problem - General Chief Complaint: High Blood Sugar Stated Complaint: BLOOD SUGAR PROBLEM Time Seen by Provider: 08/08/16 22:13 Notes: The patient is a 25-year-old female, past medical history IDDM, presents from [facility] (her Urgent Care/PMD) after her Accu-Chek was over 600. She went to the appointment because of 2 vaginal abscesses. She is feeling dehydrated. She said she took her Lantus and Humalog this morning. Denies nausea, vomiting , dysuria, fevers, vaginal discharge or headache. TRAVEL OUTSIDE OF THE [place].S. IN LAST 30 DAYS: No - Related Data Allergies/Adverse Reactions: aspirin Allergy (Mild, Verified 07/15/16 18:09) Hives ibuprofen Allergy (Mild, Verified 07/15/16 18:09) Hives tramadol Allergy (Mild, Verified 07/15/16 18:09) Hives Past Medical History - General Information source: Patient - Social History Smoking Status: Current Every Day Smoker Family History: Malignancy, Thyroid Disfunction - Thyroid cancer Patient has suicidal ideation: No Patient has homicidal ideation: No - Past Medical History Cardiac Medical History: Denies: Hx Congestive Heart Failure, Hx DVT, Hx Heart Attack, Hx Hypercholesterolemia, Hx Hypertension, Hx Pulmonary Embolism Pulmonary Medical History: Denies: Hx Asthma, Hx COPD Neurological Medical History: Denies: Hx Seizures Endocrine Medical History: Reports: Hx Diabetes Mellitus Type 1 - Insulin- dependent, metformin, lantus, and novalog. Denies: Hx Hyperthyroidism, Hx Hypothyroidism Renal/ Medical History: Reports: Hx Kidney Stones, Hx Ovarian Cysts. Denies: Hx Peritoneal Dialysis GI Medical History: Reports: Hx Gastroesophageal Reflux Disease. Denies: Hx Cirrhosis, Hx Hepatitis Musculoskeltal Medical History: Denies Hx Arthritis, Reports Hx Musculoskeletal Deformity, Reports Hx Musculoskeletal Trauma Skin Medical History: Denies Hx Eczema, Denies Hx Psoriasis Psychiatric Medical History: Reports: Hx Anxiety Denies: Hx Depression Infectious Medical History: Denies: Hx Hepatitis Past Surgical History: Reports: Hx Cholecystectomy, Hx Oral Surgery - Dental surgery, Hx Tubal Ligation - Immunizations Hx Diphtheria, Pertussis, Tetanus Vaccination: Yes Review of Systems - Review of Systems Notes: REVIEW OF SYSTEMS: CONSTITUTIONAL: -fevers, -chills EENT: -eye pain, -difficulty swallowing, -nasal congestion CARDIOVASCULAR:-chest pain, -syncope. RESPIRATORY: -cough, -SOB GASTROINTESTINAL: -abdominal pain, - nausea, -vomiting, -diarrhea GENITOURINARY: -dysuria, -hematuria MUSCULOSKELETAL: -back pain, -neck pain SKIN: +vaginal abscesses HEMATOLOGIC: -easy bruising or bleeding. LYMPHATIC: -swollen, enlarged glands. NEUROLOGICAL: -altered mental status or loss of consciousness, -headache, - neurologic symptoms PSYCHIATRIC: -anxiety, -depression. ALL OTHER SYSTEMS REVIEWED AND NEGATIVE. Physical Exam - Vital signs Vitals: Temp Pulse Resp BP Pulse Ox 98.1 F 99 18 117/68 97 08/08/16 19:53 08/08/16 19:53 08/08/16 19:53 08/08/16 19:53 08/08/16 19:53 - Notes Notes: PHYSICAL EXAMINATION: GENERAL: Well-appearing, well-nourished and in no acute distress. HEAD: Atraumatic, normocephalic. EYES: Pupils equal round and reactive to light, extraocular movements intact, sclera anicteric, conjunctiva are normal. ENT: nares patent, oropharynx clear without exudates. Moist mucous membranes. NECK: Normal range of motion, supple without lymphadenopathy LUNGS: Breath sounds clear to auscultation bilaterally and equal. No wheezes rales or rhonchi. HEART: Regular rate and rhythm without murmurs ABDOMEN: Soft, nontender, normoactive bowel sounds. No guarding, no rebound. No masses appreciated. : Small left-sided Bartholin abscess, 2 cm draining left labial abscess EXTREMITIES: Normal range of motion, no pitting or edema. No cyanosis. NEUROLOGICAL: Cranial nerves grossly intact. Normal speech, normal gait. Normal sensory and motor exams. PSYCH: Normal mood, normal affect. SKIN: Folliculitis diffusely Course - Re-evaluation Re-evalutation: With hyperglycemia, but no evidence of DKA. Her blood sugar improved after given her home dose of insulin and fluids. She has a open draining left labial abscess and a very small left Bartholin abscess. Offered to open up the left labial abscess more and attempt drainage of the Bartholin's cyst, but patient declined at this time. Will begin Bactrim. 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 - Vital Signs Vital signs: Temp Pulse Resp BP Pulse Ox 98.1 F 99 18 117/68 97 08/08/16 19:53 08/08/16 19:53 08/08/16 19:53 08/08/16 19:53 08/08/16 19:53 - Laboratory Result Diagrams: 08/08/16 22:20 08/08/16 22:20 Laboratory results interpreted by me: 08/08/16 08/08/16 08/08/16 19:58 21:00 22:20 RDW 14.6 H Sodium Chloride Creatinine Glucose POC Glucose > 550 H* Calcium Direct Bilirubin AST Urine Glucose (UA) >=500 H Urine Ketones 80 H Urine Blood MODERATE H Ur Leukocyte Esterase SMALL H 08/08/16 08/09/16 22:20 01:45 RDW Sodium 134.0 L Chloride 88 L Creatinine 0.44 L Glucose 587 H* POC Glucose 306 H Calcium 10.3 H Direct Bilirubin 0.5 H AST 8 L Urine Glucose (UA) Urine Ketones Urine Blood Ur Leukocyte Esterase Discharge - Discharge Clinical Impression: Hyperglycemia, Labial abscess, Bartholin's gland infection Condition: Stable Disposition: HOME, SELF-CARE Additional Instructions: HYPERGLYCEMIA (HIGH BLOOD SUGAR): You have an abnormally high blood sugar. Not all high blood sugar requires long-term treatment. High blood sugar can be due to medications, , or the stress of illness. (These cases are "borderline diabetes.") If the doctor feels your high blood sugar might resolve with time, you may not require treatment now. It's very important that you follow through, to see if the blood sugar returns to normal levels. Uncontrolled high blood sugar leads to early heart disease, strokes, nerve damage, eye damage, and kidney damage. Call the physician if there is faintness, excess sleepiness, or very rapid breathing. DIABETES: You have an abnormally high blood sugar, suspicious for diabetes. Not all high blood sugar requires long-term treatment. High blood sugar can be due to medications, , or the stress of illness. (These cases are "borderline diabetes.") If the doctor feels your high blood sugar might get better with time, you may not require treatment now. It's very important that you follow through. Uncontrolled high blood sugar leads to early heart disease, strokes, nerve damage, eye damage, and kidney damage. All diabetics should follow a diet designed to control the blood sugar. Overweight diabetics should exercise regularly and lose weight. If this is not sufficient to control the blood sugar, pills or insulin shots are necessary. Younger people who develop diabetes almost always require insulin daily. Home testing of blood sugars or urine sugar is required. Diabetic teaching is available to help you figure insulin doses and monitor the blood sugar. Call the physician if there is faintness, excess sleepiness, or very rapid breathing. If hypoglycemia (LOW blood sugar) develops, symptoms are shakiness, weakness, sweating, and confusion. In this case, you should eat or drink something with sugar at once. INSULIN: Insulin is a natural hormone that lowers blood sugar. Normal blood sugar prevents complications of diabetes. For most diabetics, insulin is the best way to treat the illness. Be sure you know how to measure the insulin correctly. Insulin is measured in "units." There are three types of insulin: N (NPH or long acting), R (regular or short acting), and L (Lente or very long acting). Be sure you are using the right amount of each type. Insulin must be injected into the fat. You can use the abdomen, upper arms , and thighs. Select a different injection site every time. Wipe the site with alcohol before injecting. When first starting insulin, some adjusting of the insulin dose is necessary. Keep a record of each insulin dose and time of injection, and of the blood sugar and the time you test it. Sometimes insulin can make the blood sugar too low. If you become dizzy, sweaty, shaky, or confused, you may be having a hypoglycemic episode. Immediately use juice or some other sweet food. Call the doctor if the symptoms don't go away. FOLLOW-UP CARE: If you have been referred to a physician for follow-up care, call the physician s office for an appointment as you were instructed or within the next two days. If you experience worsening or a significant change in your symptoms, notify the physician immediately or return to the Emergency Department at any time for re-evaluation. ABSCESS: You have an abscess (boil). This a pus-forming infection, usually due to staph. Some boils may be left to drain on their own, but most require lancing. From the time the tender lump first appears, it may be three or four days before the abscess is ready to wilfrido. Local heat and rest help at this stage of treatment. An antibiotic may prevent spread of the infection. Once the abscess is opened, packing may be placed into it. This is done so pus is not sealed inside by premature closure of the cavity. The packing will be removed at your follow-up visit or you may be advised to remove it yourself at home. Sometimes this packing must be replaced a few times during healing. The wound will heal with surprisingly little scar. Depending on the size and location of an abscess, healing can take one to four weeks. You may shower and wash the area around the incision site two or three times a day. Antibiotics may be prescribed, but are usually not necessary after an abscess has been drained. If you develop fever, chills, worsening pain, or increasing swelling in the area, call the doctor or return immediately. MRSA CELLULITIS: You have an infection of your skin and underlying soft tissues called cellulitis. This is due to bacteria, which can enter through any break in the skin, or even through an irritated hair follicle. Untreated, cellulitis will usually worsen and may form an abscess which requires draining. Although many bacterial organisms can cause cellulitis and abscess formations, the most likely bacteria is Methicillin-Resistant Staph Aureus, or MRSA for short. Antibiotics are required. Usually, warm packs or warm soaks, and elevation of the infected area are recommended. You should start getting better within 24 to 36 hours. Most infections respond quickly to the right medication. Follow-up care is important, however, to check for abscess (boil) formation, unsuspected foreign body, or resistant infection. If you develop fever, chills, or if the area of infection is becoming rapidly more swollen or painful, call the doctor at once. TRIMETHOPRIM-SULFA: You have been given a prescription for trimethoprim-sulfa (TMS, Septra, Bactrim). This is a combination antibiotic of the sulfa class, often used for urinary tract infections, middle ear infections, bronchitis, shigella intestinal infection, and Pneumocystis pneumonia. TMS is usually well-tolerated. Occasional side effects include nausea and decreased appetite. Septra is not recommended for infants less than two months of age. Do not take this medication if you have experienced severe side effects or allergy to sulfa medicine. You should stop this medicine at once and contact your physician if you develop any rash, joint pain, shortness of breath, bruising, or jaundice ( yellow color in the skin), or if you develop any other new or unusual symptoms. FOLLOW-UP CARE: Most simple abscesses will not require a follow up visit. If you had packing placed in the abscess, remove it as instructed by the physician. If you have been referred to a physician for follow-up care, call the physicians office for an appointment as you were instructed or within the next two days. If you experience worsening or a significant change in your symptoms, return to the Emergency Department at any time for re-evaluation. Prescriptions: Sulfamethoxazole/Trimethoprim [Bactrim Ds Tablet] 2 each PO Q12H 10 Days
[2016-08-08] MEDS ORDERED: HYDROCODONE/ACETAMINOPHEN 5-325 MG TABLET PO ONE (22:25)
[2016-08-08 22:40] LABS: ABSOLUTE BASOPHILS # (AUTO) 0.1 10^3/uL (0.0-0.2); ABSOLUTE EOSINOPHILS # (AUTO) 0.3 10^3/uL (0.0-0.6); ABSOLUTE LYMPHOCYTES (AUTO) 1.9 10^3/uL (0.5-4.7); ABSOLUTE MONOCYTES (AUTO) 0.8 10^3/uL (0.1-1.4); ABSOLUTE NEUT (AUTO) 4.8 10^3/uL (1.7-8.2); EOSINOPHILS % (AUTO) 3.6 % (0-6); HEMATOCRIT 45.6 % (36.0-47.0); HEMOGLOBIN 15.3 g/dL (12.0-15.5); HGB HCT DIFFERENCE 0.3; LYMPHOCYTES % (AUTO) 24.4 % (13-45); MEAN CORPUSCULAR HEMOGLOBIN 30.9 pg (27.0-33.4); MEAN CORPUSCULAR HGB CONC 33.5 g/dL (32.0-36.0); MEAN CORPUSCULAR VOLUME 92 fl (80-97); MONOCYTES % (AUTO) 9.7 % (3-13); RED BLOOD COUNT 4.96 10^6/uL (3.72-5.28); RED CELL DISTRIBUTION WIDTH 14.6 % (11.5-14.0); SEGMENTED NEUTROPHILS % (AUTO) 61.3 % (42-78); WHITE BLOOD COUNT 7.8 10^3/uL (4.0-10.5)
[2016-08-08 22:42] LABS: VENOUS BLOOD BASE EXCESS 0.7 mmol/L; VENOUS BLOOD HCO3 26.2 mmol/L (20-32); VENOUS BLOOD PCO2 44.6 mmHg (35-63); VENOUS BLOOD PH 7.39 (7.30-7.42)
[2016-08-08 22:58] LABS: ALANINE AMINOTRANSFERASE 20 U/L (9-52); ALBUMIN 4.5 g/dL (3.5-5.0); ALKALINE PHOSPHATASE 118 U/L (38-126); ANION GAP 18 (5-19); ASPARTATE AMINO TRANSFERASE 8 U/L (14-36); BILIRUBIN,DIRECT 0.5 mg/dL (0.0-0.4); BILIRUBIN,TOTAL 0.7 mg/dL (0.2-1.3); BLOOD UREA NITROGEN 15 mg/dL (7-20); CALCIUM 10.3 mg/dL (8.4-10.2); CARBON DIOXIDE 28 mmol/L (22-30); CHLORIDE 88 mmol/L (98-107); CREATININE RESULT 0.44 mg/dL (0.52-1.25); POTASSIUM 4.2 mmol/L (3.6-5.0); TOTAL PROTEIN 7.5 g/dL (6.3-8.2)
[2016-08-08 23:04] LABS: APPEARANCE,URINE CLEAR; BILIRUBIN,URINE NEGATIVE (NEGATIVE); GLUCOSE, URINE >=500 mg/dL (NEGATIVE); KETONES,URINE 80 mg/dL (NEGATIVE); LEUKOCYTE ESTERASE,URINE SMALL (NEGATIVE); NITRITE,URINE NEGATIVE (NEGATIVE); PROTEIN,URINE NEGATIVE (NEGATIVE); URINE SPECIFIC GRAVITY 1.032; UROBILINOGEN,URINE NEGATIVE mg/dL (<2.0)
[2016-08-08 23:06] LABS: GLUCOSE 587 mg/dL (75-110)
[2016-08-08] MEDS ORDERED: INSULIN GLARGINE,HUM.REC.ANLOG 1,000 UNIT/10 ML UNIT SUBCUT ONE (23:31)
[2016-08-08] MEDS ORDERED: INSULIN LISPRO 100 UNIT/ML 3 ML VIAL SUBCUT ONE (23:32)
[2016-08-08] MEDS ORDERED: NORMAL SALINE 1000 ML 1,000 ML IV ONE (23:32)
[2016-08-09] MEDS ORDERED: LIDOCAINE 1%/EPINEPHRINE INJ 20 ML VIAL INJ ONE (01:56)
[2016-08-09] MEDS ORDERED: HYDROCODONE/ACETAMINOPHEN 5-325 MG TABLET PO ONE (01:57)
[2016-08-09] MEDS ORDERED: SULFAMETHOXAZOLE/TRIMETHOPRIM 800-160 MG TABLET PO ONE (02:40)
[2016-08-09 03:36] VITALS: BP 108/72
== END 2016-08-09 03:14 | disposition home or self-care (01) ==
LOC: ER 19:25
DX: E10.65 Type 1 diabetes mellitus with hyperglycemia (principal); N76.4 Abscess of vulva; N75.8 Other diseases of Bartholin's gland; F17.200 Nicotine dependence, unspecified, uncomplicated; Z88.6 Allergy status to analgesic agent; Z79.4 Long term (current) use of insulin; Z90.49 Acquired absence of other specified parts of digestive tract; Z98.51 Tubal ligation status
CPT/HCPCS: 99284; 96365; 36415; 82962; 85025; 81025; 80053; 81001; 82803; J1815 ×2; J3490 ×2; J7030

== ENCOUNTER 2016-08-15 22:21 | Emergency (ER) | payer MEDICAID ==
[2016-08-15 22:33] VITALS: BP 120/72
[2016-08-15 23:00] LABS: ABSOLUTE BASOPHILS # (AUTO) 0.1 10^3/uL (0.0-0.2); ABSOLUTE EOSINOPHILS # (AUTO) 0.2 10^3/uL (0.0-0.6); ABSOLUTE LYMPHOCYTES (AUTO) 1.8 10^3/uL (0.5-4.7); ABSOLUTE MONOCYTES (AUTO) 0.7 10^3/uL (0.1-1.4); BASOPHILS % (AUTO) 0.9 % (0-2); EOSINOPHILS % (AUTO) 2.2 % (0-6); HEMATOCRIT 44.4 % (36.0-47.0); HEMOGLOBIN 14.8 g/dL (12.0-15.5); LYMPHOCYTES % (AUTO) 20.5 % (13-45); MEAN CORPUSCULAR HGB CONC 33.2 g/dL (32.0-36.0); MEAN CORPUSCULAR VOLUME 93 fl (80-97); MONOCYTES % (AUTO) 8.4 % (3-13); RED BLOOD COUNT 4.77 10^6/uL (3.72-5.28); RED CELL DISTRIBUTION WIDTH 14.4 % (11.5-14.0); WHITE BLOOD COUNT 8.8 10^3/uL (4.0-10.5)
[2016-08-15 23:20] LABS: ALANINE AMINOTRANSFERASE 28 U/L (9-52); ALKALINE PHOSPHATASE 119 U/L (38-126); ANION GAP 15 (5-19); ASPARTATE AMINO TRANSFERASE 17 U/L (14-36); BILIRUBIN,DIRECT 0.5 mg/dL (0.0-0.4); BILIRUBIN,TOTAL 0.6 mg/dL (0.2-1.3); BLOOD UREA NITROGEN 14 mg/dL (7-20); CALCIUM 9.3 mg/dL (8.4-10.2); CARBON DIOXIDE 26 mmol/L (22-30); CHLORIDE 89 mmol/L (98-107); CREATININE RESULT 0.48 mg/dL (0.52-1.25); SODIUM 129.9 mmol/L (137-145); TOTAL PROTEIN 6.8 g/dL (6.3-8.2)
[2016-08-15 23:27] LABS: APPEARANCE,URINE CLEAR; BILIRUBIN,URINE NEGATIVE (NEGATIVE); GLUCOSE, URINE >=1000 mg/dL (NEGATIVE); KETONES,URINE 100 mg/dL (NEGATIVE)
[2016-08-15 23:29] LABS: URINE SPECIFIC GRAVITY 1.034
[2016-08-15 23:30] LABS: LEUKOCYTE ESTERASE,URINE NEGATIVE (NEGATIVE); NITRITE,URINE NEGATIVE (NEGATIVE); PROTEIN,URINE NEGATIVE (NEGATIVE); RBC,URINE 0-1 /HPF; UROBILINOGEN,URINE NEGATIVE mg/dL (<2.0)
[2016-08-15] MEDS ORDERED: NORMAL SALINE 1000 ML 1,000 ML IV ONE ×2 (23:34→23:52)
[2016-08-15] MEDS ORDERED: HYDROMORPHONE HCL INJ/PF 2 MG/ML AMPULE IV ONE (23:35)
[2016-08-15] MEDS ORDERED: CEFTRIAXONE INJ 1000 MG VIAL IV ONE (23:35)
[2016-08-15] MEDS ORDERED: ONDANSETRON HCL INJ/PF 4 MG/2 ML SDV IV ONE (23:35)
[2016-08-15 23:36] LABS: GLUCOSE 641 mg/dL (75-110)
[2016-08-15] MEDS ORDERED: CLINDAMYCIN HCL 150 MG CAPSULE PO ONE (23:36)
[2016-08-15] MEDS ORDERED: LIDOCAINE 1% INJ-PF (10 MG/ML) 30 ML SDV INJ ONE (23:39)
--- NOTE | 2016-08-15 23:47 | ER Document Report ---
ED Blood Sugar Problem - General Chief Complaint: High Blood Sugar Stated Complaint: BLOOD SUGAR PROBLEM Time Seen by Provider: 08/15/16 23:18 Mode of Arrival: Ambulatory Information source: Patient, Friend TRAVEL OUTSIDE OF THE [place] IN LAST 30 DAYS: No - HPI Notes: Patient is a 25-year-old insulin-dependent diabetic who presents emergency department with report that she ran out of her NovoLog 2 days ago and her blood sugar was greater than 600 at home. The patient states she is normally taking NovoLog 20 units 3 times a day. The patient still is taking her Lantus 30 units nightly, although she has not had that this evening. The patient is also taking metformin 1000 mg twice daily. The patient reports that she has multiple skin abscesses including one on her right gluteal region and several on her vaginal region. She also has diffuse dermatitis on her arms and legs that itches. She has no exposures to anyone else who has been sick. Patient had a incision and drainage performed of the gluteal abscess on 07/15/16 which grew Prevotella, Peptostreptococcus, and she reports that the area in the gluteal region is still draining. The patient reports no cough congestion, abdominal pain, chest pain, nausea, vomiting, fever. She had dental extractions done about a month ago and states this is healing appropriately. - Related Data Allergies/Adverse Reactions: aspirin Allergy (Mild, Verified 07/15/16 18:09) Hives ibuprofen Allergy (Mild, Verified 07/15/16 18:09) Hives tramadol Allergy (Mild, Verified 07/15/16 18:09) Hives ketorolac [From Toradol] Allergy (Verified 08/15/16 23:19) Home Medications: Current Home Medications Insulin Glargine,Hum.rec.anlog [Lantus Insulin 100 Unit/1 ml 10 ml] 30 unit SUBCUT QHS 08/16/16 [History] Venlafaxine HCl [Venlafaxine HCl ER] 75 mg PO DAILY 08/16/16 [History] Past Medical History - General Information source: Patient - Social History Smoking Status: Current Every Day Smoker Smoking Education Provided: Yes Frequency of alcohol use: None Drug Abuse: None Lives with: Family Family History: Malignancy, Thyroid Disfunction - Thyroid cancer Patient has suicidal ideation: No Patient has homicidal ideation: No - Past Medical History Cardiac Medical History: Denies: Hx Congestive Heart Failure, Hx DVT, Hx Heart Attack, Hx Hypercholesterolemia, Hx Hypertension, Hx Pulmonary Embolism Pulmonary Medical History: Denies: Hx Asthma, Hx COPD Neurological Medical History: Denies: Hx Seizures Endocrine Medical History: Reports: Hx Diabetes Mellitus Type 1 - Insulin- dependent, metformin, lantus, and novalog. Denies: Hx Hyperthyroidism, Hx Hypothyroidism Renal/ Medical History: Reports: Hx Kidney Stones, Hx Ovarian Cysts. Denies: Hx Peritoneal Dialysis GI Medical History: Reports: Hx Gastroesophageal Reflux Disease. Denies: Hx Cirrhosis, Hx Hepatitis Musculoskeltal Medical History: Denies Hx Arthritis, Reports Hx Musculoskeletal Deformity, Reports Hx Musculoskeletal Trauma Skin Medical History: Denies Hx Eczema, Denies Hx Psoriasis Psychiatric Medical History: Reports: Hx Anxiety Denies: Hx Depression Infectious Medical History: Denies: Hx Hepatitis Past Surgical History: Reports: Hx Cholecystectomy, Hx Oral Surgery - Dental surgery, Hx Tubal Ligation - Immunizations Hx Diphtheria, Pertussis, Tetanus Vaccination: Yes Review of Systems - Review of Systems Notes: REVIEW OF SYSTEMS: CONSTITUTIONAL : Denies fever, or sweats. EENT: Denies eye, ear, throat, or mouth pain or symptoms. Denies nasal or sinus congestion or discharge. Denies throat, tongue, or mouth swelling or difficulty swallowing. CARDIOVASCULAR: Denies chest pain. Denies palpitations or racing or irregular heart beat. Denies ankle edema. RESPIRATORY: Denies cough, cold, or chest congestion. Denies shortness of breath, difficulty breathing, or wheezing. GASTROINTESTINAL: Denies abdominal pain or distention. Denies nausea, vomiting , or diarrhea. Denies blood in vomitus, stools, or per rectum. Denies black, tarry stools. Denies constipation. GENITOURINARY: Denies difficulty urinating, painful urination, burning, frequency, blood in urine, or discharge. FEMALE GENITOURINARY: Denies vaginal bleeding, heavy or abnormal periods, irregular periods. Denies vaginal discharge or odor. MUSCULOSKELETAL: Denies back or neck pain or stiffness. Denies joint pain or swelling. SKIN: Reports a 6 or more month history of dermatitis lesions on the arms and legs that itch. She has not had any etiology determined for these lesions, but has not seen a health companion. Patient only seen a regular practitioner for the skin lesions without any answers.. HEMATOLOGIC : Denies easy bruising or bleeding. LYMPHATIC: Denies swollen, enlarged glands. NEUROLOGICAL: Denies confusion or altered mental status. Denies passing out or loss of consciousness. Denies dizziness or lightheadedness. Denies headache. Denies weakness or paralysis or loss of use of either side. Denies problems with gait or speech. Denies sensory loss, numbness, or tingling. Denies seizures. PSYCHIATRIC: Denies anxiety or stress. Denies depression, suicidal ideation, or homicidal ideation. ALL OTHER SYSTEMS REVIEWED AND NEGATIVE. Dictation was performed using [employer] voice recognition software Physical Exam - Vital signs Vitals: Temp Pulse Resp BP Pulse Ox 97.8 F 92 16 120/72 99 08/15/16 22:32 08/15/16 22:32 08/15/16 22:32 08/15/16 22:32 08/15/16 22:32 - Notes Notes: PHYSICAL EXAMINATION: GENERAL: Well-appearing, well-nourished and in no acute distress. HEAD: Atraumatic, normocephalic. EYES: Pupils equal round and reactive to light, extraocular movements intact, conjunctiva are normal. ENT: Nares patent, oropharynx clear without exudates. Slightly dry mucous membranes. NECK: Normal range of motion, supple without lymphadenopathy LUNGS: Breath sounds clear to auscultation bilaterally and equal. No wheezes rales or rhonchi. HEART: Regular rhythm without murmurs. Mild tachycardic rate of 104. ABDOMEN: Soft, nontender, nondistended abdomen. No guarding, no rebound. No masses appreciated. Female : deferred Musculoskeletal: Normal range of motion, no pitting or edema. No cyanosis. NEUROLOGICAL: Cranial nerves grossly intact. Normal speech, normal gait. Normal sensory, motor exams PSYCH: Normal mood, normal affect. SKIN: Patient has a dermatitis on the arms and legs with small areas of resolving folliculitis. No obvious evidence for molluscum, But question is raised. Question impetigo. With the exception of the gluteal area there are no lesions on the trunk region on the left where there is a still draining abscess noted measuring 2.5 cm in diameter.. Patient also has area right upper pubic area where there is an abscess measuring 2 cm in diameter. No evidence for Cole's gangrene. No significant cellulitis otherwise. Course - Re-evaluation Re-evalutation: 08/15/16 23:56 Blood sugar was greater than 600. Patient was given 10 units of IV insulin and 2 L normal saline bolus. I counseled patient at length about the need to take her medications regularly and to quit smoking. The patient stated she was waiting for her to get paid so that she could afford her insulin, given that her Medicaid was discontinued. Discussion of risks alternatives and benefits was undertaken with the patient related to incision and drainage of her abscesses, and she agreed. Based upon previous culture results showing sensitivity to cephalosporins, the patient was given IV Rocephin and was given clindamycin by mouth. Patient was also given Zofran and Dilaudid for pain control. 08/16/16 04:45 Following discussion of risks, alternatives, benefits, the patient agreed to incision and drainage of abscess on the right groin region. The area was cleaned with Shur-Clens 3, then locally infiltrated with lidocaine 1% 0.5 mL's , then the wound was incised with a #11 scalpel and purulent material was obtained which was sent for culture. The wound was cleaned and irrigated and was packed with quarter inch iodoform gauze. Patient had some pain associated with the incision and drainage, and she refused incision and drainage of gluteal abscess. Patient was given Ativan and additional Dilaudid, but she still refused incision and drainage of other abscesses. 08/16/16 04:45 Patient was given regular insulin 10 units IV with repeat 10 units IV and blood sugar came down to 440. Patient had no nausea or vomiting and she was requesting food and crackers and was drinking fluids. There is no evidence for DKA with a normal bicarb. No suggestion for sepsis or Cole's gangrene. Patient was counseled at length about the need for appropriate diabetic sugar control and follow-up. No evidence for urinary tract infection or renal insufficiency or sepsis or SIRS. 08/16/16 05:04 Patient was encouraged by myself, staff, and her friend to stay to complete her care and management, but she left to go out and smoke a cigarette never returned. No antibiotic prescriptions were able to be provided and she gave no warning that she was not going to return. Patient had no obvious suicidal thoughts, and she has a chronic long-standing history of medicine noncompliance. - Vital Signs Vital signs: Temp Pulse Resp BP Pulse Ox 97.8 F 92 16 120/72 99 08/15/16 22:32 08/15/16 22:32 08/15/16 22:32 08/15/16 22:32 08/15/16 22:32 - Laboratory Result Diagrams: 08/15/16 22:40 08/15/16 22:40 Laboratory results interpreted by me: 08/15/16 08/15/16 08/15/16 22:40 22:40 22:45 RDW 14.4 H Sodium 129.9 L Chloride 89 L Creatinine 0.48 L Glucose 641 H* POC Glucose Direct Bilirubin 0.5 H Urine Glucose (UA) >=1000 H Urine Ketones 100 H 08/16/16 08/16/16 01:46 03:25 RDW Sodium Chloride Creatinine Glucose POC Glucose 525 H* 440 H* Direct Bilirubin Urine Glucose (UA) Urine Ketones Discharge - Discharge Clinical Impression: Abscess, Hyperglycemia, Medical non-compliance Condition: Stable Disposition: AGAINST MEDICAL ADVICE Instructions: Abscess ([facility]), Post Incision and Drainage, Hyperglycemia ([facility]) Additional Instructions: Drink plenty of water. It is important to take your insulin regularly. Watch blood sugars closely. Forms: Smoking Cessation Education
[2016-08-15] MEDS ORDERED: INSULIN REG, HUMAN 100 UNIT/ML 3 ML VIAL (PYX) IV ONE (23:49)
[2016-08-16] MEDS ORDERED: LORAZEPAM INJ 2 MG/1 ML VIAL IV ONE (00:59)
[2016-08-16] MEDS ORDERED: HYDROMORPHONE HCL INJ/PF 2 MG/ML AMPULE IV ONE (00:59)
[2016-08-16] MEDS ORDERED: INSULIN REG, HUMAN 100 UNIT/ML 3 ML VIAL (PYX) IV ONE ×2 (02:04→03:49)
[2016-08-16] MEDS ORDERED: INSULIN GLARGINE,HUM.REC.ANLOG 1,000 UNIT/10 ML UNIT SUBCUT ONE (02:33)
== END 2016-08-16 04:30 | disposition left against medical advice (07) ==
LOC: ER 22:21
DX: L02.31 Cutaneous abscess of buttock (principal); E11.65 Type 2 diabetes mellitus with hyperglycemia; L30.9 Dermatitis, unspecified; Z79.4 Long term (current) use of insulin; F17.210 Nicotine dependence, cigarettes, uncomplicated; Z91.14 Patient's other noncompliance with medication regimen
CPT/HCPCS: 96376; 99283; 96374; 96375; 36415; 87070; 87205; 82962; 85025; 81025; 87075; 87077; 80053; 81001; J1815 ×2; J3490 ×2; J1170; J2060; J0696; J2405; J7030; A6266

== ENCOUNTER 2016-08-26 17:30 | Emergency (ER) | payer MEDICAID ==
[2016-08-26 17:42] VITALS: BP 107/66
[2016-08-26] MEDS ORDERED: NORMAL SALINE 1000 ML 1,000 ML IV ONE ×2 (18:11→18:46)
[2016-08-26 18:33] LABS: ABSOLUTE BASOPHILS # (AUTO) 0.1 10^3/uL (0.0-0.2); ABSOLUTE EOSINOPHILS # (AUTO) 0.3 10^3/uL (0.0-0.6); ABSOLUTE LYMPHOCYTES (AUTO) 2.1 10^3/uL (0.5-4.7); ABSOLUTE MONOCYTES (AUTO) 0.5 10^3/uL (0.1-1.4); BASOPHILS % (AUTO) 0.8 % (0-2); EOSINOPHILS % (AUTO) 3.4 % (0-6); HEMATOCRIT 43.1 % (36.0-47.0); HEMOGLOBIN 14.3 g/dL (12.0-15.5); HGB HCT DIFFERENCE -0.2; LYMPHOCYTES % (AUTO) 26.3 % (13-45); MEAN CORPUSCULAR HEMOGLOBIN 30.5 pg (27.0-33.4); MEAN CORPUSCULAR HGB CONC 33.2 g/dL (32.0-36.0); MEAN CORPUSCULAR VOLUME 92 fl (80-97); MONOCYTES % (AUTO) 6.6 % (3-13); RED CELL DISTRIBUTION WIDTH 14.3 % (11.5-14.0); SEGMENTED NEUTROPHILS % (AUTO) 62.9 % (42-78); WHITE BLOOD COUNT 7.9 10^3/uL (4.0-10.5)
--- NOTE | 2016-08-26 18:47 | ER Document Report ---
ED General - General Chief Complaint: High Blood Sugar Stated Complaint: TOOTH PAIN Time Seen by Provider: 08/26/16 18:17 Notes: Patient is a 25-year-old female well-known to the emergency department and this provider who presents today again with hyperglycemia. Patient has chronically uncontrolled diabetes and is completely noncompliant with treatment and appropriate outpatient follow-up. She has been admitted for diabetic ketoacidosis twice in the past 6 months. Her blood sugars are routinely in the 4-600s upon coming to the emergency department. She is complaining today of hypoglycemia in the setting of dental pain. She states that her right posterior molar, tooth #1 has been increasingly painful over the past 1 week. States his been taking Tylenol with minimal improvement of the pain. Nothing worsens the pain. She denies any facial swelling, difficulty swallowing or difficulty breathing. She has not had a fever. States she has been taking her insulin as prescribed. She has not seen her primary care doctor regarding today 's concerns. TRAVEL OUTSIDE OF THE [place] IN LAST 30 DAYS: No - Related Data Allergies/Adverse Reactions: aspirin Allergy (Mild, Verified 08/26/16 17:37) Hives ibuprofen Allergy (Mild, Verified 08/26/16 17:37) Hives tramadol Allergy (Mild, Verified 08/26/16 17:37) Hives ketorolac [From Toradol] Allergy (Verified 08/26/16 17:37) Past Medical History - General Information source: Patient - Social History Smoking Status: Current Every Day Smoker Chew tobacco use (# tins/day): No Frequency of alcohol use: Social Drug Abuse: None Lives with: Family Family History: Malignancy, Thyroid Disfunction - Thyroid cancer Patient has suicidal ideation: No Patient has homicidal ideation: No - Past Medical History Cardiac Medical History: Denies: Hx Congestive Heart Failure, Hx DVT, Hx Heart Attack, Hx Hypercholesterolemia, Hx Hypertension, Hx Pulmonary Embolism Pulmonary Medical History: Denies: Hx Asthma, Hx COPD Neurological Medical History: Denies: Hx Seizures Endocrine Medical History: Reports: Hx Diabetes Mellitus Type 1 - Insulin- dependent, metformin, lantus, and novalog. Denies: Hx Hyperthyroidism, Hx Hypothyroidism Renal/ Medical History: Reports: Hx Kidney Stones, Hx Ovarian Cysts. Denies: Hx Peritoneal Dialysis GI Medical History: Reports: Hx Gastroesophageal Reflux Disease. Denies: Hx Cirrhosis, Hx Hepatitis Musculoskeltal Medical History: Denies Hx Arthritis, Reports Hx Musculoskeletal Deformity, Reports Hx Musculoskeletal Trauma Skin Medical History: Denies Hx Eczema, Denies Hx Psoriasis Psychiatric Medical History: Reports: Hx Anxiety Denies: Hx Depression Infectious Medical History: Denies: Hx Hepatitis Past Surgical History: Reports: Hx Cholecystectomy, Hx Oral Surgery - Dental surgery, Hx Tubal Ligation - Immunizations Hx Diphtheria, Pertussis, Tetanus Vaccination: Yes Review of Systems - Review of Systems Notes: Constitutional: Negative for fever. HENT: Negative for sore throat. Positive for dental pain Eyes: Negative for visual changes. Cardiovascular: Negative for chest pain. Respiratory: Negative for shortness of breath. Gastrointestinal: Negative for abdominal pain, vomiting or diarrhea. Genitourinary: Negative for dysuria. Musculoskeletal: Negative for back pain. Skin: Negative for rash. Neurological: Negative for headaches, weakness or numbness. 10 point ROS negative except as marked above and in HPI. Physical Exam - Vital signs Vitals: Temp Pulse Resp BP Pulse Ox 98.4 F 98 16 107/66 97 08/26/16 17:38 08/26/16 17:38 08/26/16 17:38 08/26/16 17:38 08/26/16 17:38 Interpretation: Normal Notes: PHYSICAL EXAMINATION: GENERAL: Well-appearing, well-nourished and in no acute distress. HEAD: Atraumatic, normocephalic. EYES: Pupils equal round and reactive to light, extraocular movements intact, sclera anicteric, conjunctiva are normal. ENT: Diffusely poor dentition NECK: Normal range of motion, supple without lymphadenopathy LUNGS: Breath sounds clear to auscultation bilaterally and equal. No wheezes rales or rhonchi. HEART: Regular rate and rhythm without murmurs ABDOMEN: Soft, nontender, normoactive bowel sounds. No guarding, no rebound. No masses appreciated. EXTREMITIES: Normal range of motion, no pitting or edema. No cyanosis. NEUROLOGICAL: No focal neurological deficits. Moves all extremities spontaneously and on command. PSYCH: Normal mood, normal affect. SKIN: Warm, Dry, normal turgor, no rashes or lesions noted. Course - Re-evaluation Re-evalutation: 08/26/16 18:46 Presentation of asymptomatic hyperglycemia. There is no evidence of HHS or diabetic ketoacidosis on laboratories or based on clinical history. Patient's vitals are within normal limits. Patient does have diffuse dental caries which may be the source of her hyperglycemia although patient is noncompliant, has poor outpatient follow-up, and regularly comes to the emergency department extremely uncontrolled blood sugars. Airway is patent. Vitals within normal limits. Patient is able swallow without any difficulty. There is no significant facial swelling. Patient will be started on antibiotics. I've instructed to follow-up with dentistry as earliest ability for definitive management. For her hyperglycemia: treated with insulin and IV fluids given here in the emergency department with appropriate response of the blood sugar down to 286. At this time will discharge with return precautions and follow-up recommendations. Verbal discharge instructions given a the bedside and opportunity for questions given. Medication warnings reviewed. Patient is in agreement with this plan and has verbalized understanding of return precautions and the need for primary care follow-up in the next 24-72 hours. - Vital Signs Vital signs: Temp Pulse Resp BP Pulse Ox 98.4 F 98 14 107/66 100 08/26/16 17:38 08/26/16 17:38 08/26/16 19:00 08/26/16 17:38 08/26/16 19:00 - Laboratory Result Diagrams: 08/26/16 18:26 08/26/16 18:26 Laboratory results interpreted by me: 08/26/16 08/26/16 08/26/16 18:26 18:26 20:39 RDW 14.3 H Sodium 128.3 L Chloride 90 L Creatinine 0.48 L Glucose 628 H* POC Glucose 285 H Discharge - Discharge Clinical Impression: Noncompliance with diabetes treatment, Dental caries, Hyperglycemia Condition: Good Disposition: HOME, SELF-CARE Additional Instructions: You have been seen for dental pain. It is very important that you follow-up with a dentist for definitive care. Please return if you develop fever greater than 101, swelling in your face, vomiting, difficulty breathing or swallowing, or any other symptoms that are concerning to you. You can take Tylenol as needed for your pain. Take the antibiotics as prescribed. You need to followup urgently with your primary care doctor as your blood sugars were dangerously high today. You did not have any evidence of a dangerous condition associated with these blood sugars at this time. However, it is very important that you get your blood sugars under control. Please take all of your medications exactly as directed. You should avoid foods that are high in carbohydrates and sugary foods. Please return to emergency department immediately if you develop weakness, persistent vomiting, confusion, or any other symptoms that are concerning to you. Prescriptions: Clindamycin HCl 300 mg PO TID #21 capsule Referrals: DENVER STAFFORD PA-C [Primary Care Provider] - Follow up as needed
[2016-08-26 19:00] LABS: ALANINE AMINOTRANSFERASE 23 U/L (9-52); ALBUMIN 3.8 g/dL (3.5-5.0); ALKALINE PHOSPHATASE 102 U/L (38-126); ANION GAP 14 (5-19); ASPARTATE AMINO TRANSFERASE 15 U/L (14-36); BILIRUBIN,DIRECT 0.4 mg/dL (0.0-0.4); BILIRUBIN,TOTAL 0.5 mg/dL (0.2-1.3); BLOOD UREA NITROGEN 14 mg/dL (7-20); CALCIUM 9.2 mg/dL (8.4-10.2); CARBON DIOXIDE 24 mmol/L (22-30); CHLORIDE 90 mmol/L (98-107); CREATININE RESULT 0.48 mg/dL (0.52-1.25); POTASSIUM 3.9 mmol/L (3.6-5.0); SODIUM 128.3 mmol/L (137-145); TOTAL PROTEIN 6.5 g/dL (6.3-8.2)
[2016-08-26 19:30] LABS: GLUCOSE 628 mg/dL (75-110)
[2016-08-26] MEDS ORDERED: INSULIN REG, HUMAN 100 UNIT/ML 3 ML VIAL (PYX) IV ONE (19:31)
== END 2016-08-26 21:00 | disposition home or self-care (01) ==
LOC: ER 17:30
DX: E11.65 Type 2 diabetes mellitus with hyperglycemia (principal); K02.9 Dental caries, unspecified; K08.89 Other specified disorders of teeth and supporting structures; F17.200 Nicotine dependence, unspecified, uncomplicated; Z91.14 Patient's other noncompliance with medication regimen
CPT/HCPCS: 99284; 96360; 96361; 36415; 82962; 85025; 80053; J1815; J7030

== ENCOUNTER 2016-09-03 21:54 | Observation (INO) | payer MEDICAID ==
[2016-09-03 22:27] LABS: APPEARANCE,URINE SLIGHTLY-CLOUDY; BILIRUBIN,URINE NEGATIVE (NEGATIVE); GLUCOSE, URINE >=500 mg/dL (NEGATIVE); KETONES,URINE 20 mg/dL (NEGATIVE); LEUKOCYTE ESTERASE,URINE LARGE (NEGATIVE); NITRITE,URINE NEGATIVE (NEGATIVE); PROTEIN,URINE NEGATIVE (NEGATIVE); URINE SPECIFIC GRAVITY 1.027; UROBILINOGEN,URINE NEGATIVE mg/dL (<2.0)
[2016-09-03] MEDS ORDERED: OXYCODONE-ACETAMINOPHEN 5-325 MG TABLET PO ONE (22:32)
--- NOTE | 2016-09-03 22:41 | ER Document Report ---
ED General - General Chief Complaint: Abscess Stated Complaint: PAINFUL URINATION,POSSIBLE ASCESS Time Seen by Provider: 09/03/16 22:17 Mode of Arrival: Ambulatory Information source: Patient Notes: Patient presents emergency department with complaints of pain with voiding and rectal abscess. Patient reports that abscess started 2 days ago. Denies fever vomiting diarrhea. Denies history of MRSA. Patient is DM1, poorly controlled. TRAVEL OUTSIDE OF THE [place] IN LAST 30 DAYS: No - HPI Onset: Other - 2 days Onset/Duration: Persistent Quality of pain: Achy, Sharp Severity: Severe Pain Level: 5 Associated symptoms: None Exacerbated by: Denies Relieved by: Denies Similar symptoms previously: No Recently seen / treated by doctor: No - Related Data Allergies/Adverse Reactions: aspirin Allergy (Mild, Verified 08/26/16 17:37) Hives ibuprofen Allergy (Mild, Verified 08/26/16 17:37) Hives tramadol Allergy (Mild, Verified 08/26/16 17:37) Hives ketorolac [From Toradol] Allergy (Verified 08/26/16 17:37) Past Medical History - General Information source: Patient Last Menstrual Period: 08/03/16 - Social History Smoking Status: Current Every Day Smoker Cigarette use (# per day): Yes Frequency of alcohol use: None Drug Abuse: None Family History: Malignancy, Thyroid Disfunction - Thyroid cancer Patient has suicidal ideation: No Patient has homicidal ideation: No - Past Medical History Cardiac Medical History: Denies: Hx Congestive Heart Failure, Hx DVT, Hx Heart Attack, Hx Hypercholesterolemia, Hx Hypertension, Hx Pulmonary Embolism Pulmonary Medical History: Denies: Hx Asthma, Hx COPD Neurological Medical History: Denies: Hx Seizures Endocrine Medical History: Reports: Hx Diabetes Mellitus Type 1 - Insulin- dependent, metformin, lantus, and novalog. Denies: Hx Hyperthyroidism, Hx Hypothyroidism Renal/ Medical History: Reports: Hx Kidney Stones, Hx Ovarian Cysts. Denies: Hx Peritoneal Dialysis GI Medical History: Reports: Hx Gastroesophageal Reflux Disease. Denies: Hx Cirrhosis, Hx Hepatitis Musculoskeltal Medical History: Denies Hx Arthritis, Reports Hx Musculoskeletal Deformity, Reports Hx Musculoskeletal Trauma Skin Medical History: Denies Hx Eczema, Denies Hx Psoriasis Psychiatric Medical History: Reports: Hx Anxiety Denies: Hx Depression Infectious Medical History: Denies: Hx Hepatitis Past Surgical History: Reports: Hx Cholecystectomy, Hx Oral Surgery - Dental surgery, Hx Tubal Ligation - Immunizations Hx Diphtheria, Pertussis, Tetanus Vaccination: Yes Review of Systems - Review of Systems Notes: Review HPI for review of systems., All other systems negative Physical Exam - Vital signs Vitals: Temp Pulse Resp BP Pulse Ox 98.2 F 114 H 19 141/90 H 100 09/03/16 22:03 09/03/16 22:03 09/03/16 22:03 09/03/16 22:03 09/03/16 22:03 - Notes Notes: PHYSICAL EXAMINATION: GENERAL: nontoxic looking HEAD: Atraumatic, normocephalic. EYES: Pupils equal round , extraocular movements intact, sclera anicteric, conjunctiva are normal. ENT: nares patent, . Moist mucous membranes. NECK: Normal range of motion, supple without lymphadenopathy LUNGS: CTAB and equal. No wheezes rales or rhonchi. HEART: ABDOMEN: Soft, no tenderness. No guarding, no rebound EXTREMITIES: Normal range of motion, no pitting edema. No cyanosis. NEUROLOGICAL: Cranial nerves grossly intact. Normal sensory/motor exams. PSYCH: Normal mood, normal affect. - Skin Skin Temperature: Warm Skin Moisture: Dry Skin irregularity: Abscess Location of irregularity: Other - perirectal, large swelling to 0900 area, erythema Irregularity with: Other - multiple insect bites Course - Re-evaluation Re-evalutation: 09/03/16 22:[address] Aquino per [facility] guidelines. Contacted Dr Perez, surgeon, he requests ct iv pelvis 09/04/16 00:[address] aquino. bgl 557, iv fluids and insulin initiated 09/04/16 00:10 Dr Perez here to see patient, he has contacted Dr Odell for admission - Vital Signs Vital signs: Temp Pulse Resp BP Pulse Ox 97.7 F 85 20 122/68 100 09/04/16 00:27 09/04/16 00:27 09/04/16 00:27 09/04/16 00:27 09/04/16 00:27 - Laboratory Result Diagrams: 09/03/16 22:56 09/03/16 22:56 Laboratory results interpreted by me: 09/03/16 09/03/16 09/03/16 22:05 22:56 22:56 RDW 14.2 H Sodium 130.3 L Potassium 5.1 H Chloride 94 L Carbon Dioxide 21 L Glucose 557 H* AST 11 L Urine Glucose (UA) >=500 H Urine Ketones 20 H Urine Blood SMALL H Ur Leukocyte Esterase LARGE H - Diagnostic Test Radiology reviewed: Image reviewed, Reports reviewed - sm perirectal abscess - Consults bertrand Time consulted: 22:44 Reason for consultation: 09/03/16 22:44 rectal abscess Consulted provider: will come to ER - contacted with CT results will come to the ED, other Discharge - Discharge Clinical Impression: Hyperglycemia due to type 1 diabetes mellitus, Perirectal abscess Disposition: ADMITTED OBSERVATION Admitting Provider: Surgicalist
[2016-09-03 23:10] LABS: ABSOLUTE BASOPHILS # (AUTO) 0.1 10^3/uL (0.0-0.2); ABSOLUTE EOSINOPHILS # (AUTO) 0.2 10^3/uL (0.0-0.6); ABSOLUTE MONOCYTES (AUTO) 0.7 10^3/uL (0.1-1.4); ABSOLUTE NEUT (AUTO) 7.1 10^3/uL (1.7-8.2); BASOPHILS % (AUTO) 0.7 % (0-2); EOSINOPHILS % (AUTO) 2.2 % (0-6); HEMATOCRIT 42.9 % (36.0-47.0); HGB HCT DIFFERENCE -0.9; LYMPHOCYTES % (AUTO) 20.1 % (13-45); MEAN CORPUSCULAR HEMOGLOBIN 30.7 pg (27.0-33.4); MEAN CORPUSCULAR HGB CONC 32.6 g/dL (32.0-36.0); MEAN CORPUSCULAR VOLUME 94 fl (80-97); MONOCYTES % (AUTO) 6.7 % (3-13); RED BLOOD COUNT 4.56 10^6/uL (3.72-5.28); RED CELL DISTRIBUTION WIDTH 14.2 % (11.5-14.0); SEGMENTED NEUTROPHILS % (AUTO) 70.3 % (42-78); WHITE BLOOD COUNT 10.1 10^3/uL (4.0-10.5)
[2016-09-03 23:27] LABS: ALANINE AMINOTRANSFERASE 22 U/L (9-52); ALBUMIN 3.9 g/dL (3.5-5.0); ALKALINE PHOSPHATASE 109 U/L (38-126); ANION GAP 15 (5-19); ASPARTATE AMINO TRANSFERASE 11 U/L (14-36); BILIRUBIN,DIRECT 0.4 mg/dL (0.0-0.4); BILIRUBIN,TOTAL 0.6 mg/dL (0.2-1.3); BLOOD UREA NITROGEN 18 mg/dL (7-20); CALCIUM 9.3 mg/dL (8.4-10.2); CARBON DIOXIDE 21 mmol/L (22-30); CHLORIDE 94 mmol/L (98-107); CREATININE RESULT 0.53 mg/dL (0.52-1.25); POTASSIUM 5.1 mmol/L (3.6-5.0); SODIUM 130.3 mmol/L (137-145); TOTAL PROTEIN 6.8 g/dL (6.3-8.2)
--- NOTE | 2016-09-03 23:36 | RADIOLOGY REPORT (SQ) ---
EXAM DESCRIPTION: CT PELVIS WITH COMPLETED DATE/TIME: 09/03/2016 11:19 pm REASON FOR STUDY: RECTAL ABSCESS COMPARISON: None. TECHNIQUE: CT scan of the pelvis performed without intravenous or oral contrast. Images reviewed wi th soft tissue and bone windows. Reconstructed coronal and sagittal MPR images reviewed. All images stored on PACS. All CT scanners at this facility use dose modulation, iterative reconstruction, and/or weight based d osing when appropriate to reduce radiation dose to as low as reasonably achievable (ALARA). [facility]: Dose Right [facility]: CareDose [facility]: Dose Right [facility]: Teradose 4D [facility]: Smart Dr. Tariff RADIATION DOSE: Up-to-date CT equipment and radiation dose reduction techniques were employed. CTDIv ol: 5.5 - 5.6 mGy. DLP: 393 mGy-cm. mGy. LIMITATIONS: None. FINDINGS: PELVIC BONES: No acute fracture. No worrisome bone lesions. VISUALIZED SPINE: No acute findings. HIP(S): No acute fracture or dislocation. No worrisome bone lesions. PELVIC SOFT TISSUES: There is small perirectal abscess measuring approximately 3.5 x 1.9 x 2.0 cm in size on (these series 3, image 51 and is series 602, image 47). There is some intense very flat stra nding seen in adjacent to a the collection. No pelvic mass lesions or adenopathy identified. Prior tubal ligation. EXTRAPELVIC SOFT TISSUES: Above OTHER: No other significant finding. IMPRESSION: Small perirectal abscess measuring 3.5 x 1.9 x 2.0 cm with adjacent fat stranding on the left adjacent to the anus/distal rectum. No other significant abnormality identified. TECHNICAL DOCUMENTATION: JOB ID: [id number] Quality ID # [id number]: Final reports with documentation of one or more dose reduction techniques (e.g., Au tomated exposure control, adjustment of the mA and/or kV according to patient size, use of iterative reconstruction technique) 2010 [email or web address]- All Rights Reserved
[2016-09-03 23:38] LABS: GLUCOSE 557 mg/dL (75-110)
[2016-09-03] MEDS ORDERED: NORMAL SALINE 1000 ML 1,000 ML IV ONE (23:54)
[2016-09-04] MEDS ORDERED: INSULIN REG, HUMAN 100 UNIT/ML 3 ML VIAL (PYX) IV ONE (00:01)
[2016-09-04] MEDS ORDERED: INSULIN LISPRO 100 UNIT/ML 3 ML VIAL SUBCUT PRN (00:15)
[2016-09-04] MEDS ORDERED: DEXTROSE 50%-WATER 25 GM/50 ML DISP.SYRIN IV PRN ×2 (00:15)
[2016-09-04] MEDS ORDERED: DEXTROSE 40% GEL 15 GM TUBE PO PRN ×2 (00:15)
[2016-09-04] MEDS ORDERED: GLUCAGON,HUMAN RECOMB 1 MG INJ IM PRN (00:15)
[2016-09-04] MEDS ORDERED: NORMAL SALINE 1000 ML 1,000 ML IV SCH (00:30)
--- NOTE | 2016-09-04 00:36 | PDOC H&P ---
History of Present Illness Admission Date/PCP: NO LOCALMD Patient complains of: Pain along the left perianal area fluctuant mass History of Present Illness: FRIDA ALMANZA is a 25 year old female Ended to the emergency room this evening with complaints of pain along the left perianal area. Patient stated that she noticed a "bump" in the area approximately 3 days ago. Since that time the lump has increased in size and increased in pain. She states she was able to have a bowel movement today without any difficulty. She denies fever, chills, sweats but states it has been difficult to maintain her blood glucose since she noted the mass and subsequent pain. Patient has apparently been admitted on 3 separate occasions for incision and drainage of perirectal abscesses and what sounds like vaginal abscesses. He denies a history of fistula in the past. Past Medical History Cardiac Medical History: Reports: None Denies: Congestive Heart Failure, DVT, Myocardial Infarction, Hyperlipidema, Hypertension, Pulmonary Embolism Pulmonary Medical History: Reports: None Denies: Asthma, Chronic Obstructive Pulmonary Disease (COPD) EENT Medical History: Reports: None Neurological Medical History: Reports: None Denies: Seizures Endocrine Medical History: Reports: Diabetes Mellitus Type 1 - Insulin-dependent , metformin, lantus, and novalog Denies: Hyperthyroidism, Hypothyroidism GI Medical History: Reports: Gastroesophageal Reflux Disease Denies: Cirrhosis, Hepatitis Musculoskeltal Medical History: Denies: Arthritis Skin Medical History: Denies: Eczema, Psoriasis Psychiatric Medical History: Denies: Depression Past Surgical History Past Surgical History: Reports: Cholecystectomy, Tubal Ligation, Other - Incision and drainage of multiple perirectal abscesses Social History Smoking Status: Current Every Day Smoker Frequency of Alcohol Use: Rare Hx Recreational Drug Use: No Drugs: None Hx Prescription Drug Abuse: No Family History Family History: Malignancy, Thyroid Disfunction - Thyroid cancer Parental Family History Reviewed: No Children Family History Reviewed: No Sibling(s) Family History Reviewed.: No Medication/Allergy Home Medications: Insulin Aspart [Novolog Flexpen] 20 unit SUBCUT AC 04/21/16 Metformin HCl [Glucophage] 1,000 mg PO BID 04/21/16 Insulin Glargine,Hum.rec.anlog [Lantus Insulin 100 Unit/1 ml 10 ml] 30 unit SUBCUT QHS 08/16/16 Venlafaxine HCl [Venlafaxine HCl ER] 75 mg PO DAILY 08/16/16 Clindamycin HCl 300 mg PO TID #21 capsule 08/26/16 Allergies/Adverse Reactions: aspirin Allergy (Mild, Verified 08/26/16 17:37) Hives ibuprofen Allergy (Mild, Verified 08/26/16 17:37) Hives tramadol Allergy (Mild, Verified 08/26/16 17:37) Hives ketorolac [From Toradol] Allergy (Verified 08/26/16 17:37) Review of Systems Constitutional: ABSENT: chills, fever(s), headache(s), weight gain, weight loss Eyes: ABSENT: visual disturbances Ears: ABSENT: hearing changes Nose, Mouth, and Throat: PRESENT: as per HPI Cardiovascular: ABSENT: chest pain, dyspnea on exertion, edema, orthropnea, palpitations Respiratory: ABSENT: cough, hemoptysis Gastrointestinal: ABSENT: abdominal pain, constipation, diarrhea, hematemesis, hematochezia, nausea, vomiting Genitourinary: ABSENT: dysuria, hematuria Musculoskeletal: ABSENT: joint swelling Integumentary: PRESENT: other - Positive for erythematous, scaling lesions on the extremities upper and lower bilaterally long-standing Neurological: ABSENT: abnormal gait, abnormal speech, confusion, dizziness, focal weakness, syncope Psychiatric: ABSENT: anxiety, depression, homidical ideation, suicidal ideation Endocrine: PRESENT: as per HPI Hematologic/Lymphatic: ABSENT: easy bleeding, easy bruising Physical Exam Vital Signs: Temp Pulse Resp BP Pulse Ox 98.2 F 114 H 19 141/90 H 100 09/03/16 22:27 09/03/16 22:27 09/03/16 22:27 09/03/16 22:27 09/03/16 22:27 Intake & Output 09/02/16 09/03/16 09/04/16 06:59 06:59 06:59 Weight 66.1 kg General appearance: PRESENT: cooperative, mild distress, thin, other - Other smell of ketones when examining the patient. Head exam: PRESENT: atraumatic, normocephalic Eye exam: PRESENT: conjunctiva pink, EOMI, PERRLA. ABSENT: scleral icterus Ear exam: PRESENT: normal external ear exam Mouth exam: PRESENT: moist, tongue midline Teeth exam: PRESENT: dental caries, poor dentation Neck exam: ABSENT: carotid bruit, JVD, lymphadenopathy, thyromegaly Respiratory exam: PRESENT: clear to auscultation adriel. ABSENT: rales, rhonchi, wheezes Cardiovascular exam: PRESENT: RRR. ABSENT: diastolic murmur, rubs, systolic murmur Pulses: PRESENT: normal dorsalis pedis pul Vascular exam: PRESENT: normal capillary refill GI/Abdominal exam: PRESENT: normal bowel sounds, soft. ABSENT: distended, guarding, mass, organolmegaly, rebound, tenderness Rectal exam: PRESENT: mass - The large fluctuant mass noted in the left perirectal area extending onto the left buttock. Exquisitely tender to palpation. There appears to be no evidence of sinus tract skin or fistula. Extremities exam: PRESENT: full ROM. ABSENT: calf tenderness, clubbing, pedal edema Musculoskeletal exam: PRESENT: ambulatory, full ROM Neurological exam: PRESENT: alert, awake, oriented to person, oriented to place , oriented to time, oriented to situation, CN II-XII grossly intact. ABSENT: motor sensory deficit Psychiatric exam: PRESENT: appropriate affect, normal mood. ABSENT: homicidal ideation, suicidal ideation Skin exam: PRESENT: other - Patient is positive for multiple, raised, lesions hyperkeratosis and postinflammatory hypopigmentation upper and lower extremities bilaterally. Results Laboratory Results: 09/03/16 22:56 09/03/16 22:56 09/03/16 09/03/16 09/03/16 22:05 22:56 22:56 WBC 10.1 RBC 4.56 Hgb 14.0 Hct 42.9 MCV 94 MCH 30.7 MCHC 32.6 RDW 14.2 H Plt Count 159 Seg Neutrophils % 70.3 Lymphocytes % 20.1 Monocytes % 6.7 Eosinophils % 2.2 Basophils % 0.7 Absolute Neutrophils 7.1 Absolute Lymphocytes 2.0 Absolute Monocytes 0.7 Absolute Eosinophils 0.2 Absolute Basophils 0.1 Sodium 130.3 L Potassium 5.1 H Chloride 94 L Carbon Dioxide 21 L Anion Gap 15 BUN 18 Creatinine 0.53 Est GFR ( Amer) > 60 Est GFR (Non-Af Amer) > 60 Glucose 557 H* Calcium 9.3 Total Bilirubin 0.6 AST 11 L ALT 22 Alkaline Phosphatase 109 Total Protein 6.8 Albumin 3.9 Urine Color STRAW Urine Appearance SLIGHTLY-CLOUDY Urine pH 5.0 Ur Specific [place] 1.027 Urine Protein NEGATIVE Urine Glucose (UA) >=500 H Urine Ketones 20 H Urine Blood SMALL H Urine Nitrite NEGATIVE Ur Leukocyte Esterase LARGE H Urine WBC (Auto) 23 Urine RBC (Auto) 11 Impressions: Pelvis CT 09/03/16 22:38 IMPRESSION: Small perirectal abscess measuring 3.5 x 1.9 x 2.0 cm with adjacent fat stranding on the left adjacent to the anus/distal rectum. No other significant abnormality identified. Assessment & Plan - Diagnosis (1) Perirectal abscess Is this a current diagnosis for this admission?: YesPlan: . The antibiotics Zosyn 3.375 mg IV now 2. Incision and drainage of perirectal abscess in the operating suite (2) Diabetic ketoacidosis associated with type 1 diabetes mellitus Qualifiers: Diabetes mellitus complication detail: without coma Qualified Code(s): E10.10 - Type 1 diabetes mellitus with ketoacidosis without coma Is this a current diagnosis for this admission?: YesPlan: 1. Consult hospitalist for medical management of diabetic ketoacidosis and uncontrolled hyperglycemia - Time Time Spent: 50 to 70 Minutes Medications reviewed and adjusted accordingly: Yes Anticipated discharge: Home Within: within 24 hours
[2016-09-04] MEDS ORDERED: PIPERACILLIN/TAZOBACTAM 3.375 GM VIAL IV ONE ×2 (00:41→03:55)
[2016-09-04] MEDS ORDERED: KETAMINE HCL INJ 500 MG/10 ML VIAL ONE (01:40)
[2016-09-04] MEDS ORDERED: MIDAZOLAM 2 MG/2 ML INJ ONE (01:41)
[2016-09-04] MEDS ORDERED: FENTANYL CITRATE INJ/PF 100 MCG/2 ML AMPUL ONE (01:41)
[2016-09-04] MEDS ORDERED: PROPOFOL INJ 200 MG/20 ML VIAL IV ONE (01:41)
[2016-09-04] MEDS ORDERED: LIDOCAINE 1%/EPINEPHRINE INJ 20 ML VIAL ONE (01:54)
[2016-09-04] MEDS ORDERED: OXYCODONE-ACETAMINOPHEN 5-325 MG TABLET PO PRN (02:45)
[2016-09-04] MEDS ORDERED: ONDANSETRON HCL INJ/PF 4 MG/2 ML SDV IV PRN (02:45)
--- NOTE | 2016-09-04 02:45 | Brief Operative Note ---
BRIEF OPERATIVE REPORT DATE OF SURGERY: 09/04/16 TIME OF SURGERY: 02:36 PREOPERATIVE DIAGNOSIS: Left perirectal abscess, recurrent POSTOPERATIVE DIAGNOSIS: Same SURGEON: ANIYAH PRINCE 1ST ELECTRICIAN'S HELPER: ERVIN ARGUETA FINDINGS: Large left perirectal abscess with surrounding cellulitis no evidence of fistulous track COMPLICATIONS: none ESTIMATED BLOOD LOSS: Minimal TISSUE REMOVED OR ALTERED: Gram stain culture and sensitivities of purulent fluid TECHNICAL PROCEDURE: 09/04/2016 this 25-year-old white female was taken to the operating room placed supine position after adequate MAC anesthesia was placed in the dorsal lithotomy position prepped with Betadine solution draped in sterile fashion. The area around the abscess was anesthetized utilizing a field block of 1% Xylocaine with epinephrine. Once this had adequate time to take effect a cruciate incision was then made over the fluctuant mass with a scalpel through skin and subcutis tissue. A large amount of purulent drainage was then encountered. It was cultured for Gram stain and sensitivity. This passed off the operative field and sent to microbiology for further evaluation. Finger was then inserted into the abscess cavity and utilizing a sweeping motion to the right and left all of the subcutaneous pockets were broken down. The abscess cavity was then irrigated with approximately 1 L of normal saline solution. Abscess cavity was then packed with 1/2 inch iodoform gauze. Sterile dressing was placed over the wound patient taken out of dorsal lithotomy position placed supine and taken recovery area in satisfactory condition. Gross pathology this 25-year-old white female presented to the emergency room complaining of a painful mass in her left buttock. She has had at least 3 of these in the past in this area. Noted was controlled diabetes type 1 with ketoacidosis. Operative pathology included a 3.5 cm in diameter abscess without associated fistula
[2016-09-04] MEDS ORDERED: NORMAL SALINE 1000 ML 1,000 ML IV PRN (02:54)
[2016-09-04] MEDS ORDERED: FENTANYL CITRATE INJ/PF 100 MCG/2 ML AMPUL IV PRN ×3 (02:59)
[2016-09-04] MEDS ORDERED: DIPHENHYDRAMINE HCL 50 MG/ML VIAL IV PRN (02:59)
[2016-09-04] MEDS ORDERED: HYDROMORPHONE HCL INJ/PF 2 MG/ML AMPULE IV PRN (02:59)
[2016-09-04] MEDS ORDERED: PIPERACILLIN/TAZOBACTAM 3.375 GM VIAL IV PRN (03:21)
[2016-09-04] MEDS ORDERED: PIPERACILLIN SODIUM/TAZOBACTAM 3.375 GM in NORMAL SALINE 100 ML IV ONE (03:30)
[2016-09-04 04:36] LABS: ABSOLUTE BASOPHILS # (AUTO) 0.1 10^3/uL (0.0-0.2); ABSOLUTE EOSINOPHILS # (AUTO) 0.3 10^3/uL (0.0-0.6); ABSOLUTE LYMPHOCYTES (AUTO) 2.6 10^3/uL (0.5-4.7); ABSOLUTE MONOCYTES (AUTO) 0.6 10^3/uL (0.1-1.4); ABSOLUTE NEUT (AUTO) 5.7 10^3/uL (1.7-8.2); BASOPHILS % (AUTO) 0.6 % (0-2); EOSINOPHILS % (AUTO) 2.9 % (0-6); HEMATOCRIT 37.9 % (36.0-47.0); HEMOGLOBIN 12.7 g/dL (12.0-15.5); HGB HCT DIFFERENCE 0.2; LYMPHOCYTES % (AUTO) 28.6 % (13-45); MEAN CORPUSCULAR HGB CONC 33.4 g/dL (32.0-36.0); MEAN CORPUSCULAR VOLUME 93 fl (80-97); MONOCYTES % (AUTO) 6.5 % (3-13); RED BLOOD COUNT 4.07 10^6/uL (3.72-5.28); RED CELL DISTRIBUTION WIDTH 14.1 % (11.5-14.0); SEGMENTED NEUTROPHILS % (AUTO) 61.4 % (42-78); WHITE BLOOD COUNT 9.2 10^3/uL (4.0-10.5)
[2016-09-04 04:42] VITALS: BP 109/68
[2016-09-04] MEDS ORDERED: PIPERACILLIN SODIUM/TAZOBACTAM 3.375 GM in NORMAL SALINE 100 ML IV SCH (09:00)
--- NOTE | 2016-10-23 08:57 | DISCHARGE SUMMARY E ---
Discharge Summary NAME: FRIDA ALMANZA : 1990 AGE: 25Y ADMITTED: 09/04/2016 DISCHARGED: 09/05/2016 SUMMARY OF HOSPITALIZATION: The patient is a 25-year-old female with a history of perianal and perineal abscesses who was seen in the emergency department and found to have recurrent perianal abscess. She was admitted to the surgicalist service, taken to the operating room by Dr. Perez and underwent left perirectal abscess drainage. She tolerated the procedure well without complications. Diet was advanced and she was discharged home the following day. FINAL DIAGNOSIS: Recurrent perianal abscess status post drainage by Dr. Perez. DISPOSITION: Patient will be discharged home in the care of her family. Follow up with [facility] in approximately 1 week, take sitz baths, and take pain medication as prescribed. DICTATING PHYSICIAN: HARRIETT PASCUAL M.D. [id number] PHY#: [id number] ID: [id number] JOB#: [id number] ACCT: [id number] cc:Johnny DIAZ M.D. >
== END 2016-09-04 05:54 | disposition left against medical advice (07) ==
LOC: ER 21:54 → EH 09-04 00:38 → UNDOADMOB 09-04 00:47 → EH 09-04 00:47 → 4N 09-04 03:45
PROVIDERS: ATTEND Surgery
PROC: 0D9P0ZX Drainage of Rectum, Open Approach, Diagnostic (ICD-10-PCS; principal; 2016-09-04 02:15)
DX: K61.1 Rectal abscess (principal); E10.10 Type 1 diabetes mellitus with ketoacidosis without coma; F17.210 Nicotine dependence, cigarettes, uncomplicated; L85.9 Epidermal thickening, unspecified; Z79.4 Long term (current) use of insulin; Z90.49 Acquired absence of other specified parts of digestive tract
CPT/HCPCS: 99285; 36415 ×2; 87070; 87205; 82962; 85025 ×2; 81025; 87075; 87077; 80053; 81001; 72193; 46040; G0378 ×2; J2250; J3010; J1815 ×2; J3490; J7030; J2704; J2543; 902

== ENCOUNTER 2016-09-07 23:40 | Emergency (ER) | payer MEDICAID ==
[2016-09-07 23:49] VITALS: BP 108/83
[2016-09-08] MEDS ORDERED: LIDOCAINE 1% INJ-PF (10 MG/ML) 30 ML SDV INJ ONE (01:58)
[2016-09-08] MEDS ORDERED: INSULIN REG, HUMAN 100 UNIT/ML 3 ML VIAL (PYX) IV ONE (01:59)
[2016-09-08] MEDS ORDERED: INSULIN GLARGINE,HUM.REC.ANLOG 1,000 UNIT/10 ML UNIT SUBCUT ONE (01:59)
[2016-09-08] MEDS ORDERED: NORMAL SALINE 1000 ML 1,000 ML IV ONE ×2 (02:00→03:32)
[2016-09-08] MEDS ORDERED: ONDANSETRON HCL INJ/PF 4 MG/2 ML SDV IV ONE (02:00)
[2016-09-08] MEDS ORDERED: HYDROMORPHONE HCL INJ/PF 2 MG/ML AMPULE IV ONE ×2 (02:00→03:25)
[2016-09-08] MEDS ORDERED: AMPICILLIN SOD/SULBACTAM 3 GM VIAL IV ONE (02:02)
[2016-09-08 02:53] LABS: ABSOLUTE EOSINOPHILS # (AUTO) 0.2 10^3/uL (0.0-0.6); ABSOLUTE LYMPHOCYTES (AUTO) 1.6 10^3/uL (0.5-4.7); ABSOLUTE MONOCYTES (AUTO) 1.1 10^3/uL (0.1-1.4); BASOPHILS % (AUTO) 0.4 % (0-2); EOSINOPHILS % (AUTO) 1.8 % (0-6); HEMATOCRIT 44.2 % (36.0-47.0); HEMOGLOBIN 14.7 g/dL (12.0-15.5); HGB HCT DIFFERENCE -0.1; LYMPHOCYTES % (AUTO) 14.2 % (13-45); MEAN CORPUSCULAR HEMOGLOBIN 30.5 pg (27.0-33.4); MEAN CORPUSCULAR HGB CONC 33.3 g/dL (32.0-36.0); MEAN CORPUSCULAR VOLUME 92 fl (80-97); MONOCYTES % (AUTO) 10.3 % (3-13); RED BLOOD COUNT 4.83 10^6/uL (3.72-5.28); RED CELL DISTRIBUTION WIDTH 13.7 % (11.5-14.0); SEGMENTED NEUTROPHILS % (AUTO) 73.3 % (42-78); WHITE BLOOD COUNT 10.9 10^3/uL (4.0-10.5)
[2016-09-08 03:01] LABS: ALANINE AMINOTRANSFERASE 21 U/L (9-52); ALBUMIN 3.9 g/dL (3.5-5.0); ALKALINE PHOSPHATASE 105 U/L (38-126); ANION GAP 15 (5-19); ASPARTATE AMINO TRANSFERASE 10 U/L (14-36); BILIRUBIN,DIRECT 0.4 mg/dL (0.0-0.4); BILIRUBIN,TOTAL 0.7 mg/dL (0.2-1.3); BLOOD UREA NITROGEN 15 mg/dL (7-20); CALCIUM 9.3 mg/dL (8.4-10.2); CARBON DIOXIDE 19 mmol/L (22-30); CHLORIDE 100 mmol/L (98-107); CREATININE RESULT 0.49 mg/dL (0.52-1.25); POTASSIUM 4.2 mmol/L (3.6-5.0); TOTAL PROTEIN 6.8 g/dL (6.3-8.2)
[2016-09-08] MEDS ORDERED: LORAZEPAM INJ 2 MG/1 ML VIAL IV ONE (03:05)
[2016-09-08 03:17] LABS: GLUCOSE 479 mg/dL (75-110)
--- NOTE | 2016-09-08 03:42 | ER Document Report ---
ED General - General Chief Complaint: Abscess Stated Complaint: POSSIBLE ABSCESS Time Seen by Provider: 09/08/16 01:21 Mode of Arrival: Ambulatory Information source: Patient TRAVEL OUTSIDE OF THE [place] IN LAST 30 DAYS: No - HPI Notes: Patient is a 25-year-old insulin-dependent diabetic who presents with report that she has another abscess on her right gluteal region that came on 2 days ago and has progressed with worsening swelling. The patient had a gluteal abscess incised and drained 3 days ago on the left in the perianal region without complication. She states the packing has come out of the wound on the left and she has no pain on the left. Patient denies any abdominal pain, but she states she had nausea and vomiting earlier today. Patient reports that she ran out of her needles for her insulin again and has not taken her evening Lantus insulin or any NovoLog since this afternoon. Patient reports no chest pain or difficulty breathing. Wound culture grew strep B from incision and drainage from 3 days ago. - Related Data Allergies/Adverse Reactions: aspirin Allergy (Mild, Verified 08/26/16 17:37) Hives ibuprofen Allergy (Mild, Verified 08/26/16 17:37) Hives tramadol Allergy (Mild, Verified 08/26/16 17:37) Hives ketorolac [From Toradol] Allergy (Verified 08/26/16 17:37) Past Medical History - General Information source: Patient - Social History Smoking Status: Current Every Day Smoker Frequency of alcohol use: None Drug Abuse: None Lives with: Family Family History: Reviewed & Not Pertinent, Malignancy, Thyroid Disfunction - Thyroid cancer Patient has suicidal ideation: No Patient has homicidal ideation: No - Past Medical History Cardiac Medical History: Denies: Hx Congestive Heart Failure, Hx DVT, Hx Heart Attack, Hx Hypercholesterolemia, Hx Hypertension, Hx Pulmonary Embolism Pulmonary Medical History: Denies: Hx Asthma, Hx COPD Neurological Medical History: Denies: Hx Seizures Endocrine Medical History: Reports: Hx Diabetes Mellitus Type 1 - Insulin- dependent, metformin, lantus, and novalog. Denies: Hx Hyperthyroidism, Hx Hypothyroidism Renal/ Medical History: Reports: Hx Kidney Stones, Hx Ovarian Cysts. Denies: Hx Peritoneal Dialysis GI Medical History: Reports: Hx Gastroesophageal Reflux Disease. Denies: Hx Cirrhosis, Hx Hepatitis Musculoskeltal Medical History: Denies Hx Arthritis, Reports Hx Musculoskeletal Deformity, Reports Hx Musculoskeletal Trauma Skin Medical History: Denies Hx Eczema, Denies Hx Psoriasis Psychiatric Medical History: Reports: Hx Anxiety Denies: Hx Depression Infectious Medical History: Denies: Hx Hepatitis Past Surgical History: Reports: Hx Cholecystectomy, Hx Oral Surgery - Dental surgery, Hx Tubal Ligation, Other - Incision and drainage of multiple perirectal abscesses - Immunizations Hx Diphtheria, Pertussis, Tetanus Vaccination: Yes Review of Systems - Review of Systems Notes: REVIEW OF SYSTEMS: CONSTITUTIONAL : Denies fever, chills, or sweats. Denies recent illness. EENT: Denies eye, ear, throat, or mouth pain or symptoms. Denies nasal or sinus congestion or discharge. Denies throat, tongue, or mouth swelling or difficulty swallowing. CARDIOVASCULAR: Denies chest pain. Denies palpitations or racing or irregular heart beat. Denies ankle edema. RESPIRATORY: Denies cough, cold, or chest congestion. Denies shortness of breath, difficulty breathing, or wheezing. GASTROINTESTINAL: Denies abdominal pain or distention. Denies diarrhea. Denies blood in vomitus, stools, or per rectum. Denies black, tarry stools. Denies constipation. GENITOURINARY: Denies difficulty urinating, painful urination, burning, frequency, blood in urine, or discharge. FEMALE GENITOURINARY: Denies vaginal bleeding, heavy or abnormal periods, irregular periods. Denies vaginal discharge or odor. MUSCULOSKELETAL: Denies back or neck pain or stiffness. Denies joint pain or swelling. SKIN: Denies rash or sores. HEMATOLOGIC : Denies easy bruising or bleeding. LYMPHATIC: Denies swollen, enlarged glands. NEUROLOGICAL: Denies confusion or altered mental status. Denies passing out or loss of consciousness. Denies dizziness or lightheadedness. Denies headache. Denies weakness or paralysis or loss of use of either side. Denies problems with gait or speech. Denies sensory loss, numbness, or tingling. Denies seizures. PSYCHIATRIC: Denies anxiety or stress. Denies depression, suicidal ideation, or homicidal ideation. ALL OTHER SYSTEMS REVIEWED AND NEGATIVE. Dictation was performed using [employer] recognition software Physical Exam - Vital signs Vitals: Temp Pulse Resp BP Pulse Ox 98.1 F 56 L 16 108/83 100 09/07/16 23:46 09/07/16 23:46 09/07/16 23:46 09/07/16 23:46 09/07/16 23:46 - Notes Notes: PHYSICAL EXAMINATION: GENERAL: Well-appearing, well-nourished and in no acute distress. HEAD: Atraumatic, normocephalic. EYES: Pupils equal round and reactive to light, extraocular movements intact, conjunctiva are normal. ENT: Nares patent, oropharynx clear without exudates. Dry mucous membranes. Extremely poor dentition. No obvious abscess NECK: Normal range of motion, supple without lymphadenopathy LUNGS: Breath sounds clear to auscultation bilaterally and equal. No wheezes rales or rhonchi. HEART: Regular rate and rhythm without murmurs ABDOMEN: Soft, nontender, nondistended abdomen. No guarding, no rebound. No masses appreciated. Female : deferred Musculoskeletal: Normal range of motion, no pitting or edema. No cyanosis. NEUROLOGICAL: Cranial nerves grossly intact. Normal speech, normal gait. Normal sensory, motor exams PSYCH: Normal mood, normal affect. SKIN: Warm, Dry, normal turgor. Patient has a abscess on the left perianal region which is open and draining and shows no evidence for erythema or other abnormality. Patient has an abscess left lateral gluteal region measures total induration about 5 x 4 cm with induration. No perianal involvement. No evidence for Cole's. Course - Re-evaluation Re-evalutation: 09/08/16 03:40 Initial blood sugar was 488, repeat was over 500 and patient was given normal saline bolus and 10 units of regular insulin and her regular 30 units of Lantus for blood sugar control. Normal saline bolus 2 L was ordered. IV Unasyn was ordered. Patient was given IV Zofran and Dilaudid for pain. Initially the patient consented for incision and drainage of abscess, but when preparation was made for incision and drainage the patient refused. She requested something else for her discomfort. She was given Ativan 2 mg IV. Patient went to sleep. Upon awakening she requested something else for pain. 1 mg Dilaudid was given. 09/08/16 04:12 Patient agreed to incision and drainage. Wound area was cleaned and Betadine prepped then locally infiltrated with lidocaine 1% 1 mL, then the wound was incised with a #11 scalpel and purulent somewhat foul-smelling material was obtained which was sent for culture. Wound was cleaned and irrigated with saline and was loosely packed with quarter inch iodoform gauze after loculations were broken up. Patient tolerated this with mild degree of pain. Blood loss less than 10 cc. Patient is rehydrated with IV fluids and repeat blood sugar and urinalysis are pending at the current time. If these are normal, will write for the patient's insulin needles and medication for pain and will start the patient on clindamycin. - Vital Signs Vital signs: Temp Pulse Resp BP Pulse Ox 98.1 F 56 L 16 108/83 100 09/07/16 23:46 09/07/16 23:46 09/07/16 23:46 09/07/16 23:46 09/07/16 23:46 - Laboratory Result Diagrams: 09/08/16 02:27 09/08/16 02:27 Laboratory results interpreted by me: 09/08/16 09/08/16 02:27 02:27 WBC 10.9 H Sodium 134.0 L Carbon Dioxide 19 L Creatinine 0.49 L Glucose 479 H* AST 10 L Discharge - Discharge Clinical Impression: Medically noncompliant, Hyperglycemia, Abscess Condition: Stable Disposition: HOME, SELF-CARE Instructions: Abscess ([facility]), Oral Narcotic Medication ([facility]), Post Incision and Drainage Additional Instructions: Warm water soaks. Packing needs to come out in 2 days. Return to the ED in case of worsening swelling, vomiting, fever. Drink plenty of water. Take your insulin regularly as instructed. Watch her blood sugars closely. Prescriptions: Hydrocodone/Acetaminophen [Ada 5-325 mg Tablet] 1 tab PO Q4HP PRN #20 tablet PRN Reason: Ondansetron [Zofran Odt 4 mg Tablet] 1 tab PO Q8HP PRN #20 tab.rapdis PRN Reason: For Nausea/Vomiting Clindamycin HCl 300 mg PO Q6 #40 capsule [place], Insulin Disp., Safety [Healthy Accents Unifine Pentip] 1 each MC Q6 # 120 dis.needle
[2016-09-08] MEDS ORDERED: CLINDAMYCIN HCL 150 MG CAPSULE PO ONE (03:56)
[2016-09-08] MEDS ORDERED: HYDROCODONE/ACETAMINOPHEN 5-325 MG TABLET PO ONE (03:56)
[2016-09-08 04:19] LABS: APPEARANCE,URINE SLIGHTLY-CLOUDY; BILIRUBIN,URINE NEGATIVE (NEGATIVE); GLUCOSE, URINE >=500 mg/dL (NEGATIVE); KETONES,URINE 20 mg/dL (NEGATIVE); LEUKOCYTE ESTERASE,URINE SMALL (NEGATIVE); NITRITE,URINE NEGATIVE (NEGATIVE); PROTEIN,URINE NEGATIVE (NEGATIVE); URINE SPECIFIC GRAVITY 1.031; UROBILINOGEN,URINE NEGATIVE mg/dL (<2.0)
== END 2016-09-08 07:43 | disposition home or self-care (01) ==
LOC: ER 23:40
PROC: 0H98XZZ Drainage of Buttock Skin, External Approach (ICD-10-PCS; principal; 2016-09-07)
DX: L02.31 Cutaneous abscess of buttock (principal); E10.65 Type 1 diabetes mellitus with hyperglycemia; R11.2 Nausea with vomiting, unspecified; F17.200 Nicotine dependence, unspecified, uncomplicated; Z88.6 Allergy status to analgesic agent; Z79.4 Long term (current) use of insulin; Z79.84 Long term (current) use of oral hypoglycemic drugs; Z87.442 Personal history of urinary calculi; Z90.49 Acquired absence of other specified parts of digestive tract; Z91.14 Patient's other noncompliance with medication regimen
CPT/HCPCS: 96376; 99283; 96361; 96375; 96365; 36415; 87070; 87205; 82962; 85025; 81025; 87075; 87077; 80053; 81001; 10060; J1815 ×2; J3490 ×2; J0295; J1170; J2060; J2405; J7030; A6266

== ENCOUNTER 2016-10-03 09:38 | Emergency (ER) | payer MEDICAID ==
[2016-10-03 09:44] VITALS: BP 121/83
[2016-10-03] MEDS ORDERED: HYDROCODONE/ACETAMINOPHEN 5-325 MG TABLET PO ONE (10:04)
[2016-10-03] MEDS ORDERED: SULFAMETHOXAZOLE/TRIMETHOPRIM 800-160 MG TABLET PO ONE (10:04)
[2016-10-03] MEDS ORDERED: CEPHALEXIN 500 MG CAPSULE PO ONE (10:09)
--- NOTE | 2016-10-03 10:10 | ER Document Report ---
HPI - HPI Patient complains to provider of: abscess Onset: Other - 3 days Onset/Duration: Worse Quality of pain: Achy Pain Level: 4 Context: Patient presents complaining of abscess to left medial thigh for the past 3 days. Patient denies any history of MRSA. Patient denies any fever. Patient states she has had good control with her blood sugar as she was recently changed to a new medication that has provided her with better control. Associated Symptoms: Other - Skin abscess. denies: Fever Exacerbated by: Denies Relieved by: Denies Similar symptoms previously: Yes Recently seen / treated by doctor: No - ROS ROS below otherwise negative: Yes Systems Reviewed and Negative: Yes All other systems reviewed and negative - CONSTITUTIONAL Constitutional: DENIES: Fever, Chills - NEURO Neurology: DENIES: Weakness - CARDIOVASCULAR Cardiovascular: DENIES: Chest pain - REPRODUCTIVE LMP: Reproductive: DENIES: : - MUSCULOSKELETAL Musculoskeletal: REPORTS: Extremity pain - DERM Skin Color: Normal Notes: abscess Past Medical History - General Information source: Patient - Social History Smoking Status: Current Every Day Smoker Chew tobacco use (# tins/day): No Frequency of alcohol use: None Drug Abuse: None Occupation: [employer] Lives with: Family Family History: Reviewed & Not Pertinent, Malignancy, Thyroid Disfunction - Thyroid cancer Patient has suicidal ideation: No Patient has homicidal ideation: No - Past Medical History Cardiac Medical History: Denies: Hx Congestive Heart Failure, Hx DVT, Hx Heart Attack, Hx Hypercholesterolemia, Hx Hypertension, Hx Pulmonary Embolism Pulmonary Medical History: Denies: Hx Asthma, Hx COPD Neurological Medical History: Denies: Hx Seizures Endocrine Medical History: Reports: Hx Diabetes Mellitus Type 1 - Insulin- dependent, metformin, lantus, and novalog. Denies: Hx Hyperthyroidism, Hx Hypothyroidism Renal/ Medical History: Reports: Hx Kidney Stones, Hx Ovarian Cysts. Denies: Hx Peritoneal Dialysis GI Medical History: Reports: Hx Gastroesophageal Reflux Disease. Denies: Hx Cirrhosis, Hx Hepatitis Musculoskeltal Medical History: Denies Hx Arthritis, Reports Hx Musculoskeletal Deformity, Reports Hx Musculoskeletal Trauma Skin Medical History: Denies Hx Eczema, Denies Hx Psoriasis Psychiatric Medical History: Reports: Hx Anxiety Denies: Hx Depression Infectious Medical History: Denies: Hx Hepatitis Past Surgical History: Reports: Hx Cholecystectomy, Hx Oral Surgery - Dental surgery, Hx Tubal Ligation, Other - Incision and drainage of multiple perirectal abscesses - Immunizations Hx Diphtheria, Pertussis, Tetanus Vaccination: Yes Vertical Provider Document - CONSTITUTIONAL Agree With Documented VS: Yes Exam Limitations: No Limitations General Appearance: WD/WN, No Apparent Distress - INFECTION CONTROL TRAVEL OUTSIDE OF THE [place] IN LAST 30 DAYS: No - HEENT HEENT: Atraumatic, Normocephalic - NECK Neck: Normal Inspection - RESPIRATORY Respiratory: No Respiratory Distress O2 Sat by Pulse Oximetry: 98 - CARDIOVASCULAR Pulses: Normal: Dorsalis pedis - MUSCULOSKELETAL/EXTREMETIES Musculoskeletal/Extremeties: MADIMITRI, FROM - NEURO Level of Consciousness: Awake, Alert, Appropriate Motor/Sensory: No Motor Deficit - DERM Integumentary: Warm, Dry, Abscess - left medial thigh abscess Course - Vital Signs Vital signs: Temp Pulse Resp BP Pulse Ox 97.9 F 90 20 121/83 98 10/03/16 09:42 10/03/16 09:42 10/03/16 09:42 10/03/16 09:42 10/03/16 09:42 Procedures - Incision and Drainage Left Thigh Type: Simple Anesthetic type: 1% Lidocaine Blade size: 11 I&D procedure: Betadine prep applied Incision Method: Incision made by scalpel Amount/type of drainage: small amount of purulent drainage Adult Front & Back picture: 1 - abscess 1.5 cm diameter with surrounding erythema Discharge - Discharge Clinical Impression: Abscess, Encounter for incision and drainage procedure Instructions: Abscess ([facility]), Post Incision and Drainage, Oral Narcotic Medication ([facility]), Trimethoprim-Sulfa ([facility]), Cephalexin ([facility]) Additional Instructions: Return immediately for any new or worsening symptoms Followup with your primary care provider, call tomorrow to make a followup appointment Prescriptions: Cephalexin Monohydrate [Keflex 500 mg Capsule] 500 mg PO Q6H 5 Days Hydrocodone/Acetaminophen [[place] 5-325 Tablet] 1 each PO Q4 PRN #10 tablet PRN Reason: Sulfamethoxazole/Trimethoprim [Bactrim Ds Tablet] 1 each PO BID #20 tablet Forms: Return to Work Referrals: NYDIA,DENVER, PA-C [Primary Care Provider] - Follow up as needed
== END 2016-10-03 10:38 | disposition home or self-care (01) ==
LOC: ER 09:38
PROC: 0H9JXZZ Drainage of Left Upper Leg Skin, External Approach (ICD-10-PCS; principal; 2016-10-03)
DX: L02.416 Cutaneous abscess of left lower limb (principal); F17.200 Nicotine dependence, unspecified, uncomplicated
CPT/HCPCS: 99283; 10060; J3490

== ENCOUNTER 2016-10-17 14:28 | Emergency (ER) | payer MEDICAID ==
[2016-10-17] MEDS ORDERED: ACETAMINOPHEN 325 MG TABLET PO ONE (15:10)
[2016-10-17] MEDS ORDERED: ONDANSETRON 4 MG TAB.RAPDIS PO ONE (15:10)
--- NOTE | 2016-10-17 15:16 | ER Document Report ---
ED Medical Screen (RME) - General Chief Complaint: Abdominal Pain Stated Complaint: ABDOMINAL PAIN Time Seen by Provider: 10/17/16 15:07 Notes: Patient says that she has been having left lower quadrant abdominal pain for the last 3 days. She is vomiting, twice today. Not having any diarrhea. Last bowel movement this morning. Has some burning and frequency of urination. Think she had a fever yesterday. PMH: Cholecystectomy, BTL. Denies history of colitis, diverticulitis, regional enteritis, Crohn's disease, etc. Other PMH: IDDM, hypertension. Allergic to ibuprofen, aspirin, Toradol, and tramadol. Reviewing patient's history with this emergency department shows that this is approximately the 20th time this patient has been to this emergency department department in the slightly more than half of year 2017. TRAVEL OUTSIDE OF THE [place] IN LAST 30 DAYS: No - Related Data Allergies/Adverse Reactions: aspirin Allergy (Mild, Verified 10/17/16 14:34) Hives ibuprofen Allergy (Mild, Verified 10/17/16 14:34) Hives tramadol Allergy (Mild, Verified 10/17/16 14:34) Hives ketorolac [From Toradol] Allergy (Verified 10/17/16 14:34) Past Medical History - Social History Chew tobacco use (# tins/day): No Frequency of alcohol use: Occasional Drug Abuse: None Family history: Reviewed & Not Pertinent - Past Medical History Cardiac Medical History: Denies: Hx Congestive Heart Failure, Hx DVT, Hx Heart Attack, Hx Hypercholesterolemia, Hx Hypertension, Hx Pulmonary Embolism Pulmonary Medical History: Denies: Hx Asthma, Hx COPD Neurological Medical History: Denies: Hx Seizures Endocrine Medical History: Reports: Hx Diabetes Mellitus Type 1 - Insulin- dependent, metformin, lantus, and novalog. Denies: Hx Hyperthyroidism, Hx Hypothyroidism Renal/ Medical History: Reports: Hx Kidney Stones, Hx Ovarian Cysts. Denies: Hx Peritoneal Dialysis GI Medical History: Reports: Hx Gastroesophageal Reflux Disease. Denies: Hx Cirrhosis, Hx Hepatitis Musculoskeltal Medical History: Denies Hx Arthritis, Reports Hx Musculoskeletal Deformity, Reports Hx Musculoskeletal Trauma Skin Medical History: Denies Hx Eczema, Denies Hx Psoriasis Psychiatric Medical History: Reports: Hx Anxiety Denies: Hx Depression Infectious Medical History: Denies: Hx Hepatitis Past Surgical History: Reports: Hx Cholecystectomy, Hx Oral Surgery - Dental surgery, Hx Tubal Ligation, Other - Incision and drainage of multiple perirectal abscesses - Immunizations Hx Diphtheria, Pertussis, Tetanus Vaccination: Yes Physical Exam - Vital signs Vitals: Temp Pulse Resp BP Pulse Ox 98.3 F 101 H 20 121/70 97 10/17/16 14:35 10/17/16 14:35 10/17/16 14:35 10/17/16 14:35 10/17/16 14:35 Course - Vital Signs Vital signs: Temp Pulse Resp BP Pulse Ox 98.3 F 101 H 20 121/70 97 10/17/16 14:35 10/17/16 14:35 10/17/16 14:35 10/17/16 14:35 10/17/16 14:35
[2016-10-17 15:35] LABS: ABSOLUTE EOSINOPHILS # (AUTO) 0.2 10^3/uL (0.0-0.6); ABSOLUTE LYMPHOCYTES (AUTO) 2.8 10^3/uL (0.5-4.7); ABSOLUTE MONOCYTES (AUTO) 0.4 10^3/uL (0.1-1.4); ABSOLUTE NEUT (AUTO) 3.4 10^3/uL (1.7-8.2); BASOPHILS % (AUTO) 0.6 % (0-2); EOSINOPHILS % (AUTO) 2.7 % (0-6); HEMATOCRIT 46.5 % (36.0-47.0); HEMOGLOBIN 15.8 g/dL (12.0-15.5); HGB HCT DIFFERENCE 0.9; MEAN CORPUSCULAR HEMOGLOBIN 31.8 pg (27.0-33.4); MEAN CORPUSCULAR VOLUME 93 fl (80-97); MONOCYTES % (AUTO) 5.6 % (3-13); RED BLOOD COUNT 4.98 10^6/uL (3.72-5.28); RED CELL DISTRIBUTION WIDTH 13.5 % (11.5-14.0); SEGMENTED NEUTROPHILS % (AUTO) 50.1 % (42-78); WHITE BLOOD COUNT 6.7 10^3/uL (4.0-10.5)
[2016-10-17 15:38] LABS: APPEARANCE,URINE CLEAR; BILIRUBIN,URINE NEGATIVE (NEGATIVE); GLUCOSE, URINE >=500 mg/dL (NEGATIVE); KETONES,URINE 20 mg/dL (NEGATIVE); LEUKOCYTE ESTERASE,URINE NEGATIVE (NEGATIVE); NITRITE,URINE NEGATIVE (NEGATIVE); PROTEIN,URINE NEGATIVE (NEGATIVE); URINE SPECIFIC GRAVITY 1.038; UROBILINOGEN,URINE NEGATIVE mg/dL (<2.0)
[2016-10-17 15:52] LABS: ALANINE AMINOTRANSFERASE 18 U/L (9-52); ALBUMIN 4.7 g/dL (3.5-5.0); ALKALINE PHOSPHATASE 98 U/L (38-126); ANION GAP 19 (5-19); ASPARTATE AMINO TRANSFERASE 15 U/L (14-36); BILIRUBIN,DIRECT 0.4 mg/dL (0.0-0.4); BILIRUBIN,TOTAL 0.6 mg/dL (0.2-1.3); BLOOD UREA NITROGEN 8 mg/dL (7-20); CALCIUM 9.4 mg/dL (8.4-10.2); CARBON DIOXIDE 25 mmol/L (22-30); CHLORIDE 93 mmol/L (98-107); CREATININE RESULT 0.47 mg/dL (0.52-1.25); LIPASE 133.1 U/L (23-300); POTASSIUM 3.8 mmol/L (3.6-5.0); SODIUM 136.8 mmol/L (137-145); TOTAL PROTEIN 7.7 g/dL (6.3-8.2)
[2016-10-17 16:11] LABS: GLUCOSE 454 mg/dL (75-110)
[2016-10-17] MEDS ORDERED: METOCLOPRAMIDE HCL INJ/PF 10 MG/2 ML SDV IV ONE (16:43)
[2016-10-17] MEDS ORDERED: NORMAL SALINE 1000 ML 1,000 ML IV ONE (16:43)
--- NOTE | 2016-10-17 16:43 | ER Document Report ---
ED GI/ - General Information source: Patient TRAVEL OUTSIDE OF THE [place] IN LAST 30 DAYS: No - HPI Patient complains to provider of: Abdominal pain, Vomiting Associated symptoms: Other - see above <ANIGE HITCHCOCK - Last Filed: 10/17/16 17:01> <JACE ARMSTRONG - Last Filed: 10/17/16 18:51> - General Chief Complaint: Abdominal Pain Stated Complaint: ABDOMINAL PAIN Time Seen by Provider: 10/17/16 15:07 Notes: Patient is a 25 year old female who presents to the ED with complaints of nausea , vomiting and abdominal pain. Patient states that her sugars have been intermittently high but she could not specify how they were today. Upon entering the room patient states that she feels a little better. Patient states in the past her symptoms have been relieved by watching what she eats. Patient has been able to eat today without vomiting. (ANGIE HITCHCOCK) - Related Data Allergies/Adverse Reactions: aspirin Allergy (Mild, Verified 10/17/16 14:34) Hives ibuprofen Allergy (Mild, Verified 10/17/16 14:34) Hives tramadol Allergy (Mild, Verified 10/17/16 14:34) Hives ketorolac [From Toradol] Allergy (Verified 10/17/16 14:34) Past Medical History - General Information source: Patient - Social History Smoking Status: Current Every Day Smoker Chew tobacco use (# tins/day): No Frequency of alcohol use: Occasional Drug Abuse: None Family History: Reviewed & Not Pertinent, Malignancy, Thyroid Disfunction - Thyroid cancer Patient has suicidal ideation: No Patient has homicidal ideation: No - Past Medical History Cardiac Medical History: Denies: Hx Congestive Heart Failure, Hx DVT, Hx Heart Attack, Hx Hypercholesterolemia, Hx Hypertension, Hx Pulmonary Embolism Pulmonary Medical History: Denies: Hx Asthma, Hx COPD Neurological Medical History: Denies: Hx Seizures Endocrine Medical History: Reports: Hx Diabetes Mellitus Type 1 - Insulin- dependent, metformin, lantus, and novalog. Denies: Hx Hyperthyroidism, Hx Hypothyroidism Renal/ Medical History: Reports: Hx Kidney Stones, Hx Ovarian Cysts. Denies: Hx Peritoneal Dialysis GI Medical History: Reports: Hx Gastroesophageal Reflux Disease. Denies: Hx Cirrhosis, Hx Hepatitis Musculoskeltal Medical History: Denies Hx Arthritis, Reports Hx Musculoskeletal Deformity, Reports Hx Musculoskeletal Trauma Skin Medical History: Denies Hx Eczema, Denies Hx Psoriasis Psychiatric Medical History: Reports: Hx Anxiety Denies: Hx Depression Infectious Medical History: Denies: Hx Hepatitis Past Surgical History: Reports: Hx Cholecystectomy, Hx Oral Surgery - Dental surgery, Hx Tubal Ligation, Other - Incision and drainage of multiple perirectal abscesses - Immunizations Hx Diphtheria, Pertussis, Tetanus Vaccination: Yes <ANGIE HITCHCOCK - Last Filed: 10/17/16 17:01> Review of Systems - Review of Systems Constitutional: No symptoms reported EENT: No symptoms reported Cardiovascular: No symptoms reported Respiratory: No symptoms reported Gastrointestinal: See HPI, Abdominal pain, Nausea, Vomiting Genitourinary: No symptoms reported Female Genitourinary: No symptoms reported Musculoskeletal: No symptoms reported Skin: No symptoms reported Hematologic/Lymphatic: No symptoms reported Neurological/Psychological: No symptoms reported <ANGIE HITCHCOCK - Last Filed: 10/17/16 17:01> Physical Exam - General General appearance: Appears well, Alert In distress: None - HEENT Head: Normocephalic, Atraumatic Eyes: Normal Extraocular movements intact: Yes Pupils: PERRL Mucous membranes: Dry - Respiratory Respiratory status: No respiratory distress Breath sounds: Normal - Cardiovascular Rhythm: Regular Heart sounds: Normal auscultation Murmur: No - Abdominal Inspection: Normal Distension: No distension Bowel sounds: Normal Tenderness: Tender - diffuse, mild - Back Back: Normal - Extremities General upper extremity: Normal inspection, Normal ROM General lower extremity: Normal inspection, Normal ROM - Neurological Neuro grossly intact: Yes - Psychological Associated symptoms: Normal affect, Normal mood - Skin Skin Temperature: Warm Skin Moisture: Dry Skin Color: Normal <ANGIE HITCHCOCK - Last Filed: 10/17/16 17:01> Course - Laboratory Result Diagrams: 10/17/16 15:27 10/17/16 15:27 <ANGIE HITCHCOCK - Last Filed: 10/17/16 17:01> - Laboratory Result Diagrams: 10/17/16 15:27 10/17/16 15:27 <JACE ARMSTRONG - Last Filed: 10/17/16 18:51> - Re-evaluation Re-evalutation: 10/17/16 18:50 Patient is a 25-year-old female who comes in complaining of abdominal pain and vomiting. Patient has a history of abdominal pain and similar symptoms. Patient states that she has been trying to control her blood sugar at home. Blood work was no evidence for acidosis. Given Bentyl and Reglan here, as well as fluids. No acute tenderness to palpation. Patient feels much better and would like to go home. Stable for discharge. Follow-up with PMD. Return if any further concerns. (JACE ARMSTRONG) - Vital Signs Vital signs: Temp Pulse Resp BP Pulse Ox 97.6 F 64 20 109/68 100 10/17/16 18:26 10/17/16 18:26 10/17/16 18:26 10/17/16 18:26 10/17/16 18:26 - Laboratory Laboratory results interpreted by me: 10/17/16 10/17/16 10/17/16 15:27 15:27 15:27 Hgb 15.8 H Sodium 136.8 L Chloride 93 L Creatinine 0.47 L Glucose 454 H* Urine Glucose (UA) >=500 H Urine Ketones 20 H Discharge <ANGIE HITCHCOCK - Last Filed: 10/17/16 17:01> <JACE ARMSTRONG - Last Filed: 10/17/16 18:51> - Discharge Clinical Impression: Hyperglycemia due to type 1 diabetes mellitus Abdominal pain Qualifiers: Abdominal location: generalized Qualified Code(s): R10.84 - Generalized abdominal pain Vomiting Qualifiers: Vomiting type: unspecified Vomiting Intractability: non-intractable Nausea presence: with nausea Qualified Code(s): R11.2 - Nausea with vomiting, unspecified Condition: Stable Disposition: HOME, SELF-CARE Instructions: Abdominal Pain ([facility]), Vomiting ([facility]) Referrals: DENVER STAFFORD PA-C [Primary Care Provider] - Follow up as needed Scribe Attestation: 10/17/16 18:50 I personally performed the services described in the documentation, reviewed and edited the documentation which was dictated to the scribe in my presence, and it accurately records my words and actions. (JAEC ARMSTRONG) Scribe Documentation - Scribe Written by Scribe:: kisha Mason, 10/17/2016, [id number] acting as scribe for :: Violet <ANGIE HITCHCOCK - Last Filed: 10/17/16 17:01>
[2016-10-17] MEDS ORDERED: DICYCLOMINE HCL INJ 20 MG/2 ML AMPULE IM ONE (16:45)
[2016-10-17 18:29] VITALS: BP 109/68
== END 2016-10-17 18:35 | disposition home or self-care (01) ==
LOC: ER 14:28
DX: R10.84 Generalized abdominal pain (principal); R11.2 Nausea with vomiting, unspecified; E10.65 Type 1 diabetes mellitus with hyperglycemia; F17.200 Nicotine dependence, unspecified, uncomplicated; Z88.6 Allergy status to analgesic agent; Z88.5 Allergy status to narcotic agent; Z88.8 Allergy status to other drugs, medicaments and biological substances; Z87.19 Personal history of other diseases of the digestive system; Z90.49 Acquired absence of other specified parts of digestive tract; Z98.51 Tubal ligation status
CPT/HCPCS: 99284; 96372; 96361; 96374; 36415; 83690; 84703; 85025; 80053; 81001; J3490; J0500; S0119; J2765; J7030

== ENCOUNTER 2016-10-23 18:46 | Emergency (ER) | payer MEDICAID ==
--- NOTE | 2016-10-23 19:46 | ER Document Report ---
ED General - General Chief Complaint: Toothache Stated Complaint: TOOTH,MOUTH PAIN Time Seen by Provider: 10/23/16 19:39 Notes: 25 yo female c/o pain to left lower molar # 18. filling fell out. pt has dental appointment in 5 days. no fever, no facial swelling TRAVEL OUTSIDE OF THE [place] IN LAST 30 DAYS: No - HPI Onset/Duration: Gradual, Persistent Quality of pain: Achy Associated symptoms: None Exacerbated by: Food Relieved by: Denies Similar symptoms previously: No Recently seen / treated by doctor: No - Related Data Allergies/Adverse Reactions: aspirin Allergy (Mild, Verified 10/23/16 18:53) Hives ibuprofen Allergy (Mild, Verified 10/23/16 18:53) Hives tramadol Allergy (Mild, Verified 10/23/16 18:53) Hives ketorolac [From Toradol] Allergy (Verified 10/23/16 18:53) Past Medical History - General Information source: Patient - Social History Smoking Status: Current Every Day Smoker Frequency of alcohol use: Social Drug Abuse: None Lives with: Family Family History: Reviewed & Not Pertinent, Malignancy, Thyroid Disfunction - Thyroid cancer - Past Medical History Cardiac Medical History: Denies: Hx Congestive Heart Failure, Hx DVT, Hx Heart Attack, Hx Hypercholesterolemia, Hx Hypertension, Hx Pulmonary Embolism Pulmonary Medical History: Denies: Hx Asthma, Hx COPD Neurological Medical History: Denies: Hx Seizures Endocrine Medical History: Reports: Hx Diabetes Mellitus Type 1 - Insulin- dependent, metformin, lantus, and novalog. Denies: Hx Hyperthyroidism, Hx Hypothyroidism Renal/ Medical History: Reports: Hx Kidney Stones, Hx Ovarian Cysts. Denies: Hx Peritoneal Dialysis GI Medical History: Reports: Hx Gastroesophageal Reflux Disease. Denies: Hx Cirrhosis, Hx Hepatitis Musculoskeltal Medical History: Denies Hx Arthritis, Reports Hx Musculoskeletal Deformity, Reports Hx Musculoskeletal Trauma Skin Medical History: Denies Hx Eczema, Denies Hx Psoriasis Psychiatric Medical History: Reports: Hx Anxiety Denies: Hx Depression Infectious Medical History: Denies: Hx Hepatitis Past Surgical History: Reports: Hx Cholecystectomy, Hx Oral Surgery - Dental surgery, Hx Tubal Ligation, Other - Incision and drainage of multiple perirectal abscesses - Immunizations Hx Diphtheria, Pertussis, Tetanus Vaccination: Yes Review of Systems - Review of Systems Constitutional: No symptoms reported EENT: See HPI, Mouth pain Cardiovascular: No symptoms reported Respiratory: No symptoms reported Gastrointestinal: No symptoms reported Genitourinary: No symptoms reported Female Genitourinary: No symptoms reported Musculoskeletal: No symptoms reported Skin: No symptoms reported Hematologic/Lymphatic: No symptoms reported Neurological/Psychological: No symptoms reported Physical Exam - Vital signs Vitals: Temp Pulse Resp BP Pulse Ox 98.4 F 82 16 114/66 99 10/23/16 18:51 10/23/16 18:51 10/23/16 18:51 10/23/16 18:51 10/23/16 18:51 Interpretation: Normal - General General appearance: Appears well, Alert - HEENT Head: Normocephalic, Atraumatic Eyes: Normal Pupils: PERRL Tympanic membrane: Normal Teeth diagram: 1 - fractured tooth. no gingival swelling or abscess appreciated Pharynx: Normal Neck: Normal, Supple - Respiratory Respiratory status: No respiratory distress Chest status: Tender - + right anterior proximal chest wall intercostal tenderness Breath sounds: Normal Chest palpation: Normal - Cardiovascular Rhythm: Regular Heart sounds: Normal auscultation Murmur: No - Abdominal Inspection: Normal Distension: No distension Bowel sounds: Normal Tenderness: Nontender Organomegaly: No organomegaly - Back Back: Normal, Nontender - Extremities General upper extremity: Normal inspection, Nontender, Normal color, Normal ROM , Normal temperature General lower extremity: Normal inspection, Nontender, Normal color, Normal ROM , Normal temperature, Normal weight bearing. No: Raúl's sign - Neurological Neuro grossly intact: Yes Cognition: Normal Orientation: AAOx4 [place] Coma Scale Eye Opening: Spontaneous Melita Coma Scale Verbal: Oriented Melita Coma Scale Motor: Obeys Commands [place] Coma Scale Total: 15 Speech: Normal Motor strength normal: LUE, RUE, LLE, RLE Sensory: Normal - Psychological Associated symptoms: Normal affect, Normal mood - Skin Skin Temperature: Warm Skin Moisture: Dry Skin Color: Normal Course - Vital Signs Vital signs: Temp Pulse Resp BP Pulse Ox 98.4 F 82 16 114/66 99 10/23/16 18:51 10/23/16 18:51 10/23/16 18:51 10/23/16 18:51 10/23/16 18:51 Discharge - Discharge Clinical Impression: Pain, dental Condition: Stable Disposition: HOME, SELF-CARE Instructions: Penicillin V K [facility] Additional Instructions: use lidocaine gel as instructed recommend temporary dental filling until able to see dental take antibiotic as prescribed Prescriptions: Penicillin V Potassium [Penicillin Vk 500 mg Tablet] 500 mg PO BID #20 tablet Referrals: DENVER STAFFORD PA-C [Primary Care Provider] - Follow up as needed
[2016-10-23] MEDS ORDERED: LIDOCAINE 2% VISCOUS SOLN 20 ML UDCUP PO ONE (20:17)
[2016-10-23 20:44] VITALS: BP 122/71
== END 2016-10-23 20:46 | disposition home or self-care (01) ==
LOC: ER 18:46
DX: K08.89 Other specified disorders of teeth and supporting structures (principal); F17.200 Nicotine dependence, unspecified, uncomplicated
CPT/HCPCS: 99282; J3490

== ENCOUNTER 2016-10-25 17:24 | Emergency (ER) | payer MEDICAID ==
[2016-10-25 17:34] VITALS: BP 123/72
--- NOTE | 2016-10-25 18:34 | ER Document Report ---
HPI - HPI Patient complains to provider of: Dental pain Onset: Other Onset/Duration: Constant Quality of pain: Throbbing Severity: Severe Pain Level: 5 Context: Patient was seen 2 days ago for dental pain. She has intermittent visits to the emergency room for dental problems. Patient states she has an appointment Friday at the dentist, Julianna Barkley, and [facility]. Patient has multiple allergies and was given naproxen by her dentist. No fever, no nausea vomiting. Patient was given naproxen by her dentist. Associated Symptoms: None Exacerbated by: Food Relieved by: Denies Similar symptoms previously: Yes Recently seen / treated by doctor: Yes - ROS ROS below otherwise negative: Yes Systems Reviewed and Negative: Yes All other systems reviewed and negative - CONSTITUTIONAL Constitutional: DENIES: Fever - EENT EENT: DENIES: Congestion Notes: left lower dental pain - NEURO Neurology: DENIES: Headache - CARDIOVASCULAR Cardiovascular: DENIES: Chest pain - RESPIRATORY Respiratory: DENIES: Trouble Breathing - GASTROINTESTINAL Gastrointestinal: DENIES: Abdominal Pain - URINARY Urinary: DENIES: Dysuria - REPRODUCTIVE Reproductive: DENIES: : - MUSCULOSKELETAL Musculoskeletal: DENIES: Extremity pain - DERM Skin Color: Normal Skin Problems: None Past Medical History - General Information source: Patient - Social History Smoking Status: Current Every Day Smoker Cigarette use (# per day): Yes Frequency of alcohol use: Occasional Drug Abuse: None Lives with: Family Family History: Reviewed & Not Pertinent, Malignancy, Thyroid Disfunction - Thyroid cancer Endocrine Medical History: Reports: Hx Diabetes Mellitus Type 1 - Insulin- dependent, metformin, lantus, and novalog Renal/ Medical History: Reports: Hx Kidney Stones, Hx Ovarian Cysts GI Medical History: Reports: Hx Gastroesophageal Reflux Disease Musculoskeltal Medical History: Reports Hx Musculoskeletal Deformity, Reports Hx Musculoskeletal Trauma Psychiatric Medical History: Reports: Hx Anxiety Past Surgical History: Reports: Hx Cholecystectomy, Hx Oral Surgery - Dental surgery, Hx Tubal Ligation, Other - Incision and drainage of multiple perirectal abscesses - Immunizations Hx Diphtheria, Pertussis, Tetanus Vaccination: Yes Vertical Provider Document - CONSTITUTIONAL Agree With Documented VS: Yes Exam Limitations: No Limitations General Appearance: WD/WN, No Apparent Distress - INFECTION CONTROL TRAVEL OUTSIDE OF THE [place] IN LAST 30 DAYS: No - HEENT HEENT: Atraumatic, Normocephalic Mouth Diagram: 1 - Mild decay, no swelling to gums surrounding tooth. No signs and symptoms of infection. Patient has poor dentition - NECK Neck: Normal Inspection, Supple - RESPIRATORY Respiratory: Breath Sounds Normal, No Respiratory Distress O2 Sat by Pulse Oximetry: 98 - CARDIOVASCULAR Cardiovascular: Regular Rate, Regular Rhythm - MUSCULOSKELETAL/EXTREMETIES Musculoskeletal/Extremeties: MAEW - NEURO Level of Consciousness: Awake, Alert, Appropriate - DERM Integumentary: Warm, Dry Course - Vital Signs Vital signs: Temp Pulse Resp BP Pulse Ox 98.5 F 97 20 123/72 98 10/25/16 17:33 10/25/16 17:33 10/25/16 17:33 10/25/16 17:33 10/25/16 17:33 Discharge - Discharge Clinical Impression: Pain due to dental caries Condition: Good Disposition: HOME, SELF-CARE Additional Instructions: Continue the penicillin that your previously prescribed Naprosyn as needed for pain lidocaine gel tooth to tooth for pain See your dentist Friday as scheduled. Prescriptions: Naproxen 500 mg PO BID PRN #15 tablet PRN Reason:
[2016-10-25] MEDS ORDERED: LIDOCAINE 2% VISCOUS SOLN 20 ML UDCUP PO ONE (18:36)
== END 2016-10-25 19:00 | disposition home or self-care (01) ==
LOC: ER 17:24
DX: K02.9 Dental caries, unspecified (principal); K08.89 Other specified disorders of teeth and supporting structures; F17.210 Nicotine dependence, cigarettes, uncomplicated
CPT/HCPCS: 99282

== ENCOUNTER 2016-11-01 10:29 | Inpatient (IN) | payer MEDICAID ==
[2016-11-01] MEDS ORDERED: NORMAL SALINE 1000 ML 1,000 ML IV ONE ×2 (10:59→11:55)
[2016-11-01 11:09] LABS: ABSOLUTE BASOPHILS # (AUTO) 0.1 10^3/uL (0.0-0.2); ABSOLUTE EOSINOPHILS # (AUTO) 0.1 10^3/uL (0.0-0.6); ABSOLUTE LYMPHOCYTES (AUTO) 2.3 10^3/uL (0.5-4.7); ABSOLUTE MONOCYTES (AUTO) 0.3 10^3/uL (0.1-1.4); ABSOLUTE NEUT (AUTO) 4.5 10^3/uL (1.7-8.2); BASOPHILS % (AUTO) 0.9 % (0-2); EOSINOPHILS % (AUTO) 1.8 % (0-6); HEMATOCRIT 42.6 % (36.0-47.0); HEMOGLOBIN 14.7 g/dL (12.0-15.5); HGB HCT DIFFERENCE 1.5; LYMPHOCYTES % (AUTO) 31.3 % (13-45); MEAN CORPUSCULAR HEMOGLOBIN 31.7 pg (27.0-33.4); MEAN CORPUSCULAR HGB CONC 34.6 g/dL (32.0-36.0); MEAN CORPUSCULAR VOLUME 92 fl (80-97); MONOCYTES % (AUTO) 4.4 % (3-13); RED BLOOD COUNT 4.65 10^6/uL (3.72-5.28); RED CELL DISTRIBUTION WIDTH 13.1 % (11.5-14.0); SEGMENTED NEUTROPHILS % (AUTO) 61.6 % (42-78); WHITE BLOOD COUNT 7.3 10^3/uL (4.0-10.5)
[2016-11-01 11:26] LABS: ALANINE AMINOTRANSFERASE 11 U/L (9-52); ALBUMIN 3.7 g/dL (3.5-5.0); ALKALINE PHOSPHATASE 90 U/L (38-126); ASPARTATE AMINO TRANSFERASE 7 U/L (14-36); BILIRUBIN,DIRECT 0.4 mg/dL (0.0-0.4); BILIRUBIN,TOTAL 0.4 mg/dL (0.2-1.3); BLOOD UREA NITROGEN 9 mg/dL (7-20); CALCIUM 8.3 mg/dL (8.4-10.2); CHLORIDE 107 mmol/L (98-107); CREATININE RESULT 0.48 mg/dL (0.52-1.25); GLUCOSE 388 mg/dL (75-110); POTASSIUM 3.8 mmol/L (3.6-5.0); SODIUM 136.2 mmol/L (137-145); TOTAL PROTEIN 6.1 g/dL (6.3-8.2)
[2016-11-01 11:31] LABS: ANION GAP 19 (5-19)
[2016-11-01] MEDS ORDERED: HYDROCODONE/ACETAMINOPHEN 5-325 MG TABLET PO ONE (11:38)
[2016-11-01 11:44] LABS: CARBON DIOXIDE 10 mmol/L (22-30)
--- NOTE | 2016-11-01 11:46 | ER Document Report ---
ED General Pain - General Chief Complaint: Pain All Over Stated Complaint: GENERAL PAIN Time Seen by Provider: 11/01/16 10:49 Information source: Patient Notes: Patient is a 25-year-old female that presents today with "body pain" all over her body starting on 2 days ago. She denies any nausea, vomiting, fevers, or diarrhea. Patient states that she has left lower dental pain that she has seen a dentist for previously, as well as recently during this last week and was started on antibiotics with a future follow-up appointment. She states she was only given naproxen for pain. Patient states that she has been taking all her diabetic medications appropriately. She again denies any vomiting. She denies any abdominal pain or dysuria. Patient states she has not been prescribed narcotic medications within the last month. TRAVEL OUTSIDE OF THE [place] IN LAST 30 DAYS: No - HPI Onset: Other - See above Onset/Duration: Gradual Quality of pain: Achy Severity: Mild Pain Level: 2 Context: General body pain Associated symptoms: Other - See above Exacerbated by: Denies Relieved by: Denies Similar symptoms previously: Yes Recently seen / treated by doctor: Yes - Related Data Allergies/Adverse Reactions: aspirin Allergy (Mild, Verified 10/25/16 17:33) Hives ibuprofen Allergy (Mild, Verified 10/25/16 17:33) Hives tramadol Allergy (Mild, Verified 10/25/16 17:33) Hives ketorolac [From Toradol] Allergy (Verified 10/25/16 17:33) Past Medical History - General Information source: Patient - Social History Smoking Status: Current Every Day Smoker Cigarette use (# per day): No Chew tobacco use (# tins/day): No Smoking Education Provided: No Frequency of alcohol use: Rare Drug Abuse: None Family History: Reviewed & Not Pertinent, Malignancy, Thyroid Disfunction - Thyroid cancer - Past Medical History Cardiac Medical History: Denies: Hx Congestive Heart Failure, Hx DVT, Hx Heart Attack, Hx Hypercholesterolemia, Hx Hypertension, Hx Pulmonary Embolism Pulmonary Medical History: Denies: Hx Asthma, Hx COPD Neurological Medical History: Denies: Hx Seizures Endocrine Medical History: Reports: Hx Diabetes Mellitus Type 1 - Insulin- dependent, metformin, lantus, and novalog. Denies: Hx Hyperthyroidism, Hx Hypothyroidism Renal/ Medical History: Reports: Hx Kidney Stones, Hx Ovarian Cysts. Denies: Hx Peritoneal Dialysis GI Medical History: Reports: Hx Gastroesophageal Reflux Disease. Denies: Hx Cirrhosis, Hx Hepatitis Musculoskeltal Medical History: Denies Hx Arthritis, Reports Hx Musculoskeletal Deformity, Reports Hx Musculoskeletal Trauma Skin Medical History: Denies Hx Eczema, Denies Hx Psoriasis Psychiatric Medical History: Reports: Hx Anxiety Denies: Hx Depression Infectious Medical History: Denies: Hx Hepatitis Past Surgical History: Reports: Hx Cholecystectomy, Hx Oral Surgery - Dental surgery, Hx Tubal Ligation, Other - Incision and drainage of multiple perirectal abscesses - Immunizations Hx Diphtheria, Pertussis, Tetanus Vaccination: Yes Review of Systems - Review of Systems Constitutional: denies: Fever EENT: denies: Eye discharge, Double vision, Ear pain, Nose discharge Cardiovascular: denies: Chest pain, Palpitations Respiratory: denies: Short of breath Gastrointestinal: denies: Abdominal pain, Vomiting Genitourinary: denies: Dysuria Musculoskeletal: denies: Leg swelling Skin: Other - no hives. denies: Rash Neurological/Psychological: Other - no slurred speech -: Yes All other systems reviewed and negative Physical Exam - Vital signs Vitals: Temp Pulse Resp BP Pulse Ox 98.2 F 89 16 115/72 99 11/01/16 10:35 11/01/16 10:35 11/01/16 10:35 11/01/16 10:35 11/01/16 10:35 Notes: Reviewed vital signs and nursing note as charted by RN. CONSTITUTIONAL: Alert and oriented and responds appropriately to questions. Well -appearing; well-nourished HEAD: Normocephalic; atraumatic EYES: Conjunctivae clear, sclerae non-icteric ENT: Normal nose; no rhinorrhea; patient does have some obvious dental decay to the left lateral molar region with no periapical abscesses present. Patient has no facial swelling, mastoid tenderness, or bogginess to palpation. Moist mucous membranes; pharynx without lesions noted NECK: Supple without meningismus; non-tender; no cervical lymphadenopathy, no masses CARD: Regular rate and rhythm RESP: Normal chest excursion without splinting or tachypnea; breath sounds clear and equal bilaterally ABD/GI: Normal bowel sounds; non-distended; soft, non-tender BACK: The back appears normal and is non-tender to palpation EXT: Normal ROM in all joints; non-tender to palpation; no cyanosis, no effusions, no edema SKIN: No acute lesions noted NEURO: Moves all extremities equally; Motor and sensory function intact PSYCH: The patient's mood and manner are appropriate. Grooming and personal hygiene are appropriate. Course - Re-evaluation Re-evalutation: 11/01/16 11:48 Given the Accu-Chek of 600, I will obtain basic labs, provide fluids, obtain a urinalysis and venous blood gas. I have looked up the patient on the drug database system and it does appear that the patient received 2 narcotic prescriptions in the last 30 days. I have provided a one-time dose of [place] here at this facility. I would like to evaluate for possible endocrine crisis such as diabetic ketoacidosis. A liter of fluid is infusing. 11/01/16 11:52 Patient's pH is 7.1 with a CO2 of 10. We are waiting for the potassium before starting an insulin drip. 11/01/16 11:55 According to the laboratory values it appears that the patient is in diabetic ketoacidosis. I have provided another liter of fluid. I started the patient on insulin drip with a separate IV with 40 mEq of KCl given at 250 an hour. I have also replaced the potassium p.o. with 40 mEq. Patient will be admitted to the hospitalist service. 11/01/16 12:06 EKG shows a heart rate of 77, normal sinus rhythm, normal axis, no obvious ST elevation or depression. Minimally prolonged QT interval. - Vital Signs Vital signs: Temp Pulse Resp BP Pulse Ox 98.2 F 89 16 115/72 99 11/01/16 10:35 11/01/16 10:35 11/01/16 10:35 11/01/16 10:35 11/01/16 10:35 - Laboratory Result Diagrams: 11/01/16 10:39 11/01/16 10:39 Laboratory results interpreted by me: 11/01/16 11/01/16 11/01/16 10:39 11:10 11:40 VBG pH 7.18 L* VBG pCO2 25.9 L VBG HCO3 9.4 L Sodium 136.2 L Carbon Dioxide 10 L* Creatinine 0.48 L Glucose 388 H Calcium 8.3 L AST 7 L Total Protein 6.1 L Urine Glucose (UA) >=500 H Urine Ketones 80 H Urine Blood MODERATE H Critical Care Note - Critical Care Note Total time excluding time spent on procedures (mins): 35 Discharge - Discharge Clinical Impression: Pain, dental Diabetic ketoacidosis Qualifiers: Diabetes mellitus type: other specified (including JACKIE) Diabetes mellitus complication detail: without coma Qualified Code(s): E13.10 - Other specified diabetes mellitus with ketoacidosis without coma Condition: Serious Disposition: ADMITTED INPATIENT Admitting Provider: Hospitalist Referrals: JÚNIOR AGUILAR MD [Primary Care Provider] - Follow up as needed
[2016-11-01 11:47] LABS: VENOUS BLOOD BASE EXCESS -17.3 mmol/L; VENOUS BLOOD HCO3 9.4 mmol/L (20-32); VENOUS BLOOD PCO2 25.9 mmHg (35-63)
[2016-11-01 11:51] LABS: VENOUS BLOOD PH 7.18 (7.30-7.42)
[2016-11-01] MEDS ORDERED: POTASSI CL 40 MEQ/NS 1L 1,000 ML IV PRN (11:53)
[2016-11-01] MEDS ORDERED: NORMAL SALINE 100 ML with INSULIN REGULAR, HUMAN 100 UNIT IV PRN ×2 (11:53)
[2016-11-01] MEDS ORDERED: DEXTROSE 50%-WATER 25 GM/50 ML DISP.SYRIN IV PRN ×4 (11:53→12:18)
[2016-11-01] MEDS ORDERED: DEXTROSE 40% GEL 15 GM TUBE PO PRN ×4 (11:53→12:18)
[2016-11-01] MEDS ORDERED: GLUCAGON,HUMAN RECOMB 1 MG INJ IM PRN ×2 (11:53→12:18)
[2016-11-01 11:54] LABS: APPEARANCE,URINE CLEAR; BILIRUBIN,URINE NEGATIVE (NEGATIVE); GLUCOSE, URINE >=500 mg/dL (NEGATIVE); KETONES,URINE 80 mg/dL (NEGATIVE); LEUKOCYTE ESTERASE,URINE NEGATIVE (NEGATIVE); NITRITE,URINE NEGATIVE (NEGATIVE); PROTEIN,URINE NEGATIVE (NEGATIVE); URINE SPECIFIC GRAVITY 1.031; UROBILINOGEN,URINE NEGATIVE mg/dL (<2.0)
[2016-11-01] MEDS ORDERED: POTASSIUM CHLORIDE 10 MEQ TABLET.SA PO ONE (11:58)
[2016-11-01] MEDS ORDERED: ACETAMINOPHEN 325 MG TABLET PO PRN (12:18)
[2016-11-01] MEDS ORDERED: NORMAL SALINE 1000 ML 1,000 ML IV PRN ×2 (12:18→15:41)
[2016-11-01] MEDS ORDERED: ONDANSETRON HCL INJ/PF 4 MG/2 ML SDV IV PRN (12:18)
[2016-11-01] MEDS ORDERED: INSULIN REG, HUMAN 100 UNIT/ML 3 ML VIAL (PYX) ONE (12:35)
[2016-11-01] MEDS: OXYCODONE-ACETAMINOPHEN 5-325 MG TABLET PO PRN ×2 (14:41→18:45)
[2016-11-01] MEDS ORDERED: INSULIN LISPRO 100 UNIT/ML 3 ML VIAL SUBCUT SCH (15:45)
[2016-11-01 15:55] LABS: URINE BARBITURATES SCREEN NEGATIVE; URINE METHADONE SCREEN NEGATIVE; URINE PHENCYCLIDINE SCREEN NEGATIVE
[2016-11-01 15:58] LABS: BLOOD UREA NITROGEN 6 mg/dL (7-20); CALCIUM 7.7 mg/dL (8.4-10.2); CHLORIDE 114 mmol/L (98-107); CREATININE RESULT 0.39 mg/dL (0.52-1.25); GLUCOSE 199 mg/dL (75-110); MAGNESIUM 1.5 mg/dL (1.6-2.3); SODIUM 141.2 mmol/L (137-145)
[2016-11-01 16:01] LABS: URINE OPIATES LOW UNCONFIRMED POSITIVE
[2016-11-01 16:03] LABS: ANION GAP 17 (5-19)
[2016-11-01 16:11] VITALS: BP 106/67
[2016-11-01 16:13] LABS: CARBON DIOXIDE 10 mmol/L (22-30)
[2016-11-01] MEDS ORDERED: DEXTROSE 5%-WATER 1000 ML 1,000 ML with SODIUM BICARBONATE 50 MEQ IV PRN ×2 (17:00)
[2016-11-01] MEDS ORDERED: INSULIN DETEMIR 100 UNIT/ML 3 ML PEN SUBCUT ONE (17:00)
[2016-11-01] MEDS ORDERED: CHLORHEXIDINE GLUCONATE 0.12% ORAL RINSE 15 ML UDC MM SCH (18:00)
[2016-11-01] MEDS ORDERED: PANTOPRAZOLE SODIUM 40 MG VIAL IV SCH (22:00)
--- NOTE | 2016-11-02 00:13 | EKG REPORT ---
SEVERITY:- BORDERLINE ECG - SINUS RHYTHM BORDERLINE PROLONGED QT INTERVAL : Confirmed by: Renetta Finn 02-Nov-2016 00:12:18
--- NOTE | 2016-11-02 05:02 | HX & PHYSICAL/DISCHG SUMMARY E ---
History and Physical/Discharge Summary NAME: FRIDA ALMANZA : 1990 AGE: 25Y ADMITTED: 11/01/2016 DISCHARGED: 11/01/2016 FINAL DIAGNOSIS: Diabetic ketoacidosis and dental pain. CONSULTANTS: None. PROCEDURES DONE ON THIS ADMISSION: None. HISTORY OF PRESENT ILLNESS: Patient is a 25-year-old female with a history of type 2 diabetes, who presented with a 3-day history of not feeling well. Per patient this morning her blood glucose was in the 600s. She took medication on presentation to the ED. Blood glucose was 388. Patient states that she aches all over. Patient says she has been taking her insulin at home as prescribed. She says she last saw her PCP, Dr. Calixto, two weeks ago and at that time her insulin was changed to Tresiba as her previous medication was not covering her well enough since she stated she was waking up with blood glucoses in the 200s. Patient states that she has not been able to eat due to her poor dentition. Patient was seen by her dentist on Friday however she needs extraction which cannot be done until December 02. She has been unable to eat and therefore not taking her insulin appropriately. On presentation to the ED, patient was found to have a pH of 7.18, bicarb of 10, and ketones in her urine. Patient was adamant about not staying in the hospital for any extended period of time stating that she has work and does not have anybody to watch her kids. Furthermore, patient wanted to smoke. Patient agreed to be admitted to the hospital for several hours for correction of her blood glucose and to be given bicarb intravenously. REVIEW OF SYSTEMS: Ten point review of system was negative except for as stated per HPI. PAST MEDICAL HISTORY: Significant for diabetes. FAMILY HISTORY: Significant for diabetes. ALLERGIES: 1. ASPIRIN. 2. IBUPROFEN. 3. TRAMADOL. 4. KETOROLAC. HOME MEDICATIONS: 1. Tresiba. 2. Aspart. 3. Metformin. SOCIAL HISTORY: Patient does smoke. She has a job. She has four children, ages 7, 5, 4, and 2, 3 girls and 1 boy. PAST SURGICAL HISTORY: 1. Cholecystectomy. 2. Tubal ligation. 3. Removal of buttock cyst. PHYSICAL EXAMINATION: VITAL SIGNS: Patient's vitals are stable. Temperature 97.7, pulse rate 80, blood pressure 160/67, respirations 22, saturating 100% on room air. GENERAL: The patient is lying in bed in no acute distress. Thin, frail appearing, disheveled. HEENT: Normocephalic, atraumatic. Poor dentition, a lot of dental caries and broken teeth. NECK: Supple. LUNGS: Clear to auscultation bilaterally. HEART: S1,S2. No murmurs, rubs, or gallops. ABDOMEN: Soft, nontender and nondistended. Bowel sounds heard. EXTREMITIES: No deformity or pedal edema. NEUROLOGIC: Grossly intact. PSYCHOLOGICAL: Patient very agitated. LABORATORY DATA: Venous blood gas: pH 7.18, pCO2 25.9, bicarb 9.4. White count 7.3, hemoglobin 14.7, hematocrit 42.6, platelets 194. Sodium 141, potassium 4.0, chloride 114, carbon dioxide 10.10, BUN 6, creatinine 0.59, GFR greater than 60, blood glucose 199, repeat was 140, magnesium 1.5, AST 70, ALT 11, albumin 3.7, total protein 6.1. UA was negative except for 80 of ketones. UDS was positive for opiates however patient was given opiates in the hospital. IMPRESSION/PLAN: 1. The patient is a 25-year-old female with type 2 diabetes, presenting to the hospital in early DKA. Patient was shortly admitted to the hospital and started on insulin drip. Patient's anion gap did improve from 19 to 17. Patient's blood glucose 140. Patient was transitioned to subcu insulin. She was given 30 of long-acting insulin. Thirty minutes later, the insulin drip was discontinued. Patient's fluids were switched from normal saline with potassium to just normal saline. Patient was allowed to eat. Patient was started on D-5 water with bicarb to help correct her metabolic acidosis. Patient was adamant that she must leave at 7:30 p.m. as her sister is on her way. Patient showed significant improvement and states that she feels better at this time. 2. Dental pain. Patient was given Percocet for the dental pain and was allowed to eat. DISCHARGE INSTRUCTIONS: Patient is being discharged home to follow up with her PCP. DISCHARGE MEDICATIONS: 1. Aspart 10 units a.c. 2. Tresiba 30 units subcu at bedtime. 3. Metformin 1000 mg p.o. b.i.d. TIME SPENT: This discharge took 35 minutes complete. DICTATING PHYSICIAN: LENORE GARCIA M.D. [id number] PHY#: [id number] ID: [id number] JOB#: [id number] ACCT: [id number] cc:LENORE GARCIA M.D. > [facility]
[2016-11-02] MEDS ORDERED: ENOXAPARIN SODIUM INJ 40 MG/0.4 ML DISP.SYRIN SUBCUT SCH (10:00)
== END 2016-11-01 19:45 | disposition home or self-care (01) | DRG 639 ==
LOC: ER 10:29 → EH 12:10 → UNDOADMIN 12:10 → EH 12:21 → 3N 13:37
PROVIDERS: ADMIT Family Medicine; ATTEND Family Medicine
DX: E13.10 Other specified diabetes mellitus with ketoacidosis without coma (principal); K08.89 Other specified disorders of teeth and supporting structures; F17.210 Nicotine dependence, cigarettes, uncomplicated; K21.9 Gastro-esophageal reflux disease without esophagitis; M19.90 Unspecified osteoarthritis, unspecified site; F41.9 Anxiety disorder, unspecified; Z90.49 Acquired absence of other specified parts of digestive tract; Z88.8 Allergy status to other drugs, medicaments and biological substances; Z88.6 Allergy status to analgesic agent; Z83.3 Family history of diabetes mellitus
CPT/HCPCS: 36415; 80048; 80076; 80307; 81001; 81025; 82803; 82962; 83735; 85025; 93005; 93010; 96360; 99291; J1815; J3480; J3490; J7030; J7060

== ENCOUNTER 2016-11-09 20:57 | Observation (INO) | payer MEDICAID ==
--- NOTE | 2016-11-09 22:16 | ER Document Report ---
ED General - General Chief Complaint: Rectal Abscess Stated Complaint: POSSIBEL TOOTHACHE Time Seen by Provider: 11/09/16 21:33 Notes: Patient is a 25-year-old female with a past medical history of type 1 diabetes, frequently presents with uncontrolled diabetes requiring admission for diabetic ketoacidosis who presents with a left gluteal abscess close to her anus. States is been there for the past 1 week and is gotten progressively worse. She notes a severe, constant stabbing pain to the area. Touching area worsens the pain. Nothing improves the pain. She has had a history of similar symptoms in the past. States her blood sugars have been running in the 1-200s at home. She states she has continue take her insulin as directed. TRAVEL OUTSIDE OF THE [place] IN LAST 30 DAYS: No - Related Data Allergies/Adverse Reactions: aspirin Allergy (Mild, Verified 10/25/16 17:33) Hives ibuprofen Allergy (Mild, Verified 10/25/16 17:33) Hives tramadol Allergy (Mild, Verified 10/25/16 17:33) Hives ketorolac [From Toradol] Allergy (Verified 10/25/16 17:33) Past Medical History - General Information source: Patient - Social History Smoking Status: Never Smoker Frequency of alcohol use: None Drug Abuse: None Lives with: Alone Family History: Reviewed & Not Pertinent, Malignancy, Thyroid Disfunction - Thyroid cancer Patient has suicidal ideation: No Patient has homicidal ideation: No - Past Medical History Cardiac Medical History: Denies: Hx Congestive Heart Failure, Hx DVT, Hx Heart Attack, Hx Hypercholesterolemia, Hx Hypertension, Hx Pulmonary Embolism Pulmonary Medical History: Denies: Hx Asthma, Hx COPD Neurological Medical History: Denies: Hx Seizures Endocrine Medical History: Reports: Hx Diabetes Mellitus Type 1 - Insulin- dependent, metformin, lantus, and novalog. Denies: Hx Hyperthyroidism, Hx Hypothyroidism Renal/ Medical History: Reports: Hx Kidney Stones, Hx Ovarian Cysts. Denies: Hx Peritoneal Dialysis GI Medical History: Reports: Hx Gastroesophageal Reflux Disease. Denies: Hx Cirrhosis, Hx Hepatitis Musculoskeltal Medical History: Denies Hx Arthritis, Reports Hx Musculoskeletal Deformity, Reports Hx Musculoskeletal Trauma Skin Medical History: Denies Hx Eczema, Denies Hx Psoriasis Psychiatric Medical History: Reports: Hx Anxiety Denies: Hx Depression Infectious Medical History: Denies: Hx Hepatitis Past Surgical History: Reports: Hx Cholecystectomy, Hx Oral Surgery - Dental surgery, Hx Tubal Ligation, Other - Incision and drainage of multiple perirectal abscesses - Immunizations Hx Diphtheria, Pertussis, Tetanus Vaccination: Yes Review of Systems - Review of Systems Notes: Constitutional: Negative for fever. HENT: Negative for sore throat. Eyes: Negative for visual changes. Cardiovascular: Negative for chest pain. Respiratory: Negative for shortness of breath. Gastrointestinal: Negative for abdominal pain, vomiting or diarrhea. Genitourinary: Negative for dysuria. Musculoskeletal: Negative for back pain. Skin: Positive for rash. Neurological: Negative for headaches, weakness or numbness. 10 point ROS negative except as marked above and in HPI. Physical Exam - Vital signs Vitals: Temp Pulse Resp BP Pulse Ox 98.2 F 96 18 126/72 H 97 11/09/16 21:12 11/09/16 21:12 11/09/16 21:12 11/09/16 21:12 11/09/16 21:12 Interpretation: Normal Notes: PHYSICAL EXAMINATION: GENERAL: Well-appearing, well-nourished and in no acute distress. HEAD: Atraumatic, normocephalic. EYES: Pupils equal round and reactive to light, extraocular movements intact, sclera anicteric, conjunctiva are normal. ENT: nares patent, oropharynx clear without exudates. Moderately dry mucous membranes. NECK: Normal range of motion, supple without lymphadenopathy LUNGS: Breath sounds clear to auscultation bilaterally and equal. No wheezes rales or rhonchi. HEART: Regular rate and rhythm without murmurs ABDOMEN: Soft, nontender, normoactive bowel sounds. No guarding, no rebound. No masses appreciated. EXTREMITIES: Normal range of motion, no pitting or edema. No cyanosis. NEUROLOGICAL: No focal neurological deficits. Moves all extremities spontaneously and on command. PSYCH: Normal mood, normal affect. SKIN: Warm, Dry, normal turgor, there is a 2 x 2 centimeter abscess on the medial left buttock approximately 1 cm from the anus. Course - Re-evaluation Re-evalutation: 11/09/16 22:15 Patient presents with swelling and erythema approximately 2 x 2 centimeter abscess to the left buttock that is less than 1 cm from her anus. Rectal examination does reveal exquisite tenderness in the left proximal portion of the rectum without any distinct area of fluctuance. However given the degree of pain in the region of this abscess, and concerned that this is something that would be most appropriately dealt with by a surgeon. Moreover patient's picture is comp gated by her being a diabetic with a history of recurrent diabetic ketoacidosis. Initial blood sugars here 379. Will obtain labs to ensure the patient is not diabetic ketoacidosis and consult with the surgeon clinician oncology for further management. 11/09/16 23:27 Dr. Krishnan seen and reviewed the patient and is in agreement with admitting the patient for surgical management in the morning. IV antibiotics have been started. Her laboratories do not show any evidence of diabetic ketoacidosis. - Vital Signs Vital signs: Temp Pulse Resp BP Pulse Ox 98.1 F 86 15 120/74 100 11/10/16 01:04 11/10/16 01:04 11/10/16 01:04 11/10/16 01:04 11/10/16 01:04 - Laboratory Result Diagrams: 11/09/16 22:18 11/09/16 22:18 Laboratory results interpreted by me: 11/09/16 11/09/16 11/09/16 21:53 22:18 22:18 Sodium 136.6 L Glucose 385 H POC Glucose 379 H Urine Glucose (UA) >=500 H Ur Leukocyte Esterase TRACE H Discharge - Discharge Clinical Impression: Hyperglycemia, Perirectal abscess Condition: Fair Disposition: ADMITTED INPATIENT Admitting Provider: Sean Krishnan Unit Admitted: Surgical Floor
[2016-11-09 22:39] LABS: VENOUS BLOOD PCO2 49.4 mmHg (35-63); VENOUS BLOOD PH 7.37 (7.30-7.42)
[2016-11-09 22:44] LABS: ABSOLUTE EOSINOPHILS # (AUTO) 0.2 10^3/uL (0.0-0.6); ABSOLUTE LYMPHOCYTES (AUTO) 2.4 10^3/uL (0.5-4.7); ABSOLUTE MONOCYTES (AUTO) 0.8 10^3/uL (0.1-1.4); ABSOLUTE NEUT (AUTO) 5.9 10^3/uL (1.7-8.2); BASOPHILS % (AUTO) 0.3 % (0-2); EOSINOPHILS % (AUTO) 2.5 % (0-6); HEMATOCRIT 40.7 % (36.0-47.0); HEMOGLOBIN 13.7 g/dL (12.0-15.5); HGB HCT DIFFERENCE 0.4; LYMPHOCYTES % (AUTO) 25.9 % (13-45); MEAN CORPUSCULAR HEMOGLOBIN 31.3 pg (27.0-33.4); MEAN CORPUSCULAR HGB CONC 33.7 g/dL (32.0-36.0); MEAN CORPUSCULAR VOLUME 93 fl (80-97); MONOCYTES % (AUTO) 8.5 % (3-13); RED BLOOD COUNT 4.38 10^6/uL (3.72-5.28); RED CELL DISTRIBUTION WIDTH 13.3 % (11.5-14.0); SEGMENTED NEUTROPHILS % (AUTO) 62.8 % (42-78); WHITE BLOOD COUNT 9.3 10^3/uL (4.0-10.5)
[2016-11-09 22:46] LABS: ANION GAP 10 (5-19); BLOOD UREA NITROGEN 18 mg/dL (7-20); CALCIUM 9.2 mg/dL (8.4-10.2); CARBON DIOXIDE 28 mmol/L (22-30); CHLORIDE 99 mmol/L (98-107); GLUCOSE 385 mg/dL (75-110); POTASSIUM 4.3 mmol/L (3.6-5.0); SODIUM 136.6 mmol/L (137-145)
[2016-11-09 22:49] LABS: APPEARANCE,URINE CLEAR; BILIRUBIN,URINE NEGATIVE (NEGATIVE); GLUCOSE, URINE >=500 mg/dL (NEGATIVE); KETONES,URINE NEGATIVE (NEGATIVE); LEUKOCYTE ESTERASE,URINE TRACE (NEGATIVE); NITRITE,URINE NEGATIVE (NEGATIVE); PROTEIN,URINE NEGATIVE (NEGATIVE); UROBILINOGEN,URINE NEGATIVE mg/dL (<2.0)
[2016-11-09] MEDS ORDERED: ACETAMINOPHEN 325 MG TABLET PO ONE (23:12)
[2016-11-09] MEDS ORDERED: VANCOMYCIN HCL INJ 1000 MG VIAL IV ONE (23:26)
[2016-11-09] MEDS ORDERED: INSULIN REG, HUMAN 100 UNIT/ML 3 ML VIAL (PYX) SUBCUT ONE (23:26)
[2016-11-09] MEDS ORDERED: CEFTRIAXONE 1 GM/D5W RTU 1 GM/50 ML RTUPB IV ONE (23:26)
[2016-11-10] MEDS ORDERED: PIPERACILLIN/TAZOBACTAM 3.375 GM VIAL IV PRN (00:16)
[2016-11-10] MEDS: NORMAL SALINE 1000 ML 1,000 ML IV PRN ×2 (01:30→10:36)
--- NOTE | 2016-11-10 02:08 | HISTORY AND PHYSICAL E ---
History and Physical NAME: FRIDA ALMANZA : 1990 AGE: 25Y ADMITTED: 11/09/2016 ROOM: 415 CHIEF COMPLAINT: Left perianal pains. HISTORY OF PRESENT ILLNESS: This is a 25-year-old diabetic complaining of swelling along the left perianal area for the past 5-6 days. This morning complained of pains and then went to the emergency room. She was noted to have an abscess of the left perianal area. PAST HISTORY: Diabetes mellitus, on Novolog and some p.o. medications. Her last admission was on November 01 for DKA. She had other abscesses incised and drained in the perianal area in the past, the last one being about 2 months ago. FAMILY HISTORY: Positive for diabetes, father's side. SOCIAL HISTORY: Smokes a pack a day. Denies alcohol or drug use. PAST SURGICAL HISTORY: Multiple incision and drainages of perianal abscess. Had 4 normal vaginal deliveries. REVIEW OF SYSTEMS: HEENT: Denies any hearing problems. Wears her eyeglasses for nearsightedness. Denies any sore throat. No neck pains. RESPIRATORY: No shortness of breath. CARDIAC: No chest pains. GASTROINTESTINAL: No diarrhea or constipation. GENITOURINARY: No dysuria. No vaginal discharge or abnormal menses. RECTAL: The patient has pains on the left perianal area. NEUROLOGIC: No seizures. HEMATOLOGIC: No easy bruisability. LYMPHATIC: No prominent lymph nodes. OTHER SYSTEMS: Unremarkable. ALLERGIES: TORADOL, TRAMADOL, ASPIRIN, AND IBUPROFEN. PHYSICAL EXAMINATION: GENERAL: Well-developed, well-nourished, 25-year-old female, alert and oriented, complaining of left perianal pains. HEENT: Neck is supple. NECK: No thyromegaly. LUNGS: Clear. HEART: Regular sinus rhythm. ABDOMEN: Soft, nontender. PERIANAL: On the perianal area, there is a tender swelling about 3 cm in diameter, about 0.5 cm from the anal verge. EXTREMITIES: No edema. IMPRESSION: 1. PERIANAL ABSCESS ON THE LEFT SIDE. 2. DIABETES MELLITUS. PLANS: her last food intake around 6:00 p.m. today. I will have a hospitalist manage her diabetes. DICTATING PHYSICIAN: JAMES PANDA M.D. [id number] PHY#: [id number] ID: [id number] JOB#: [id number] ACCT: [id number] cc:Laxmi TONEY MD
[2016-11-10] MEDS ORDERED: PIPERACILLIN/TAZOBACTAM 3.375 GM VIAL IV ONE (02:49)
[2016-11-10] MEDS: MORPHINE SULFATE 10 MG/ML INJ IV PRN ×2 (04:53→13:10)
[2016-11-10 05:06] LABS: ABSOLUTE BASOPHILS # (AUTO) 0.1 10^3/uL (0.0-0.2); ABSOLUTE EOSINOPHILS # (AUTO) 0.2 10^3/uL (0.0-0.6); ABSOLUTE LYMPHOCYTES (AUTO) 2.9 10^3/uL (0.5-4.7); ABSOLUTE MONOCYTES (AUTO) 0.8 10^3/uL (0.1-1.4); BASOPHILS % (AUTO) 0.9 % (0-2); EOSINOPHILS % (AUTO) 2.5 % (0-6); HEMATOCRIT 33.7 % (36.0-47.0); HGB HCT DIFFERENCE 1.1; LYMPHOCYTES % (AUTO) 32.2 % (13-45); MEAN CORPUSCULAR HEMOGLOBIN 31.4 pg (27.0-33.4); MEAN CORPUSCULAR HGB CONC 34.3 g/dL (32.0-36.0); MEAN CORPUSCULAR VOLUME 91 fl (80-97); RED BLOOD COUNT 3.69 10^6/uL (3.72-5.28); RED CELL DISTRIBUTION WIDTH 13.8 % (11.5-14.0); SEGMENTED NEUTROPHILS % (AUTO) 55.4 % (42-78); WHITE BLOOD COUNT 9.1 10^3/uL (4.0-10.5)
[2016-11-10 05:12] LABS: HEMOGLOBIN 11.6 g/dL (12.0-15.5)
[2016-11-10 05:23] LABS: ANION GAP 7 (5-19); BLOOD UREA NITROGEN 20 mg/dL (7-20); CALCIUM 8.8 mg/dL (8.4-10.2); CARBON DIOXIDE 27 mmol/L (22-30); CHLORIDE 102 mmol/L (98-107); CREATININE RESULT 0.49 mg/dL (0.52-1.25); GLUCOSE 315 mg/dL (75-110); POTASSIUM 4.3 mmol/L (3.6-5.0); SODIUM 135.5 mmol/L (137-145)
[2016-11-10] MEDS ORDERED: DEXTROSE 40% GEL 15 GM TUBE X 2 PO PRN (05:51)
[2016-11-10] MEDS ORDERED: GLUCAGON,HUMAN RECOMB 1 MG INJ IM PRN (05:51)
[2016-11-10] MEDS ORDERED: DEXTROSE 50%-WATER SYRINGE 25 GM/50 ML DOSE IV PRN (05:51)
[2016-11-10] MEDS ORDERED: INSULIN LISPRO 100 UNIT/ML 3 ML VIAL SUBCUT PRN (05:51)
[2016-11-10] MEDS ORDERED: DEXTROSE 50%-WATER SYRINGE 12.5 GM/25 ML DOSE IV PRN (05:51)
[2016-11-10] MEDS ORDERED: DEXTROSE 40% GEL 15 GM TUBE PO PRN (05:51)
[2016-11-10] MEDS: PIPERACILLIN SODIUM/TAZOBACTAM 3.375 GM in NORMAL SALINE 100 ML IV SCH ×2 (05:54→12:14)
[2016-11-10] MEDS ORDERED: BUPIVACAINE HCL 0.25 % INJ/PF (2.5 MG/1 ML) 30 ML VIAL ONE (07:41)
[2016-11-10] MEDS ORDERED: LIDOCAINE 2% INJ-PF (20 MG/ML) 10 ML AMPUL ONE (08:38)
[2016-11-10] MEDS ORDERED: ONDANSETRON HCL INJ/PF 4 MG/2 ML SDV ONE (08:39)
[2016-11-10] MEDS ORDERED: PROPOFOL INJ 200 MG/20 ML VIAL IV ONE (08:39)
[2016-11-10] MEDS ORDERED: MIDAZOLAM 2 MG/2 ML INJ ONE (08:39)
[2016-11-10] MEDS ORDERED: FENTANYL CITRATE INJ/PF 100 MCG/2 ML AMPUL ONE (08:39)
[2016-11-10] MEDS ORDERED: ACETAMINOPHEN 100 ML IV ONE (08:39)
[2016-11-10] MEDS ORDERED: DEXAMETHASONE SOD PHOSPHATE INJ 4 MG/1 ML VIAL ONE (08:39)
[2016-11-10] MEDS ORDERED: NICOTINE 14 MG/24 HR PATCH.TD24 TD PRN (09:00)
[2016-11-10] MEDS ORDERED: BUPIVACAINE HCL 0.25 % INJ/PF (2.5 MG/1 ML) 30 ML VIAL INJ ONE (09:09)
[2016-11-10] MEDS ORDERED: MEPERIDINE HCL/PF INJ 25 MG/1 ML DISP.SYRIN IV PRN (09:19)
[2016-11-10] MEDS ORDERED: ONDANSETRON HCL INJ/PF 4 MG/2 ML SDV IV PRN (09:19)
[2016-11-10] MEDS ORDERED: PROMETHAZINE HCL INJ 25 MG/1 ML VIAL IV PRN ×2 (09:19)
[2016-11-10] MEDS ORDERED: OXYCODONE-ACETAMINOPHEN 5-325 MG TABLET PO PRN ×2 (09:19)
[2016-11-10] MEDS ORDERED: MORPHINE SULFATE 10 MG/ML INJ IV PRN (09:19)
[2016-11-10] MEDS ORDERED: FENTANYL CITRATE INJ/PF 100 MCG/2 ML AMPUL IV PRN ×3 (09:19)
[2016-11-10] MEDS ORDERED: DIPHENHYDRAMINE HCL 50 MG/ML VIAL IV PRN (09:19)
[2016-11-10] MEDS ORDERED: INSULIN LISPRO 100 UNIT/ML 3 ML VIAL SUBCUT ONE (09:30)
[2016-11-10] MEDS ORDERED: MORPHINE SULFATE 10 MG/ML INJ ONE (09:44)
[2016-11-10] MEDS ORDERED: CIPROFLOXACIN HCL 500 MG TABLET PO ONE ×2 (10:00→12:00)
[2016-11-10] MEDS ORDERED: INSULIN LISPRO 100 UNIT/ML 3 ML VIAL SUBCUT SCH (11:00)
--- NOTE | 2016-11-10 11:07 | OPERATIVE REPORT E ---
Operative Report NAME: FRIDA ALMANZA : 1990 AGE: 25Y DATE OF SURGERY: 11/10/2016 ROOM: 415 PREOPERATIVE DIAGNOSIS: Right perianal abscess. POSTOPERATIVE DIAGNOSES: 1. Right perianal abscess. 2. Second smaller abscess at the perianal area. OPERATION: Incision and drainage of 2 perianal abscesses. SURGEON: JAMES PANDA M.D. ANESTHESIA: Local MAC. INDICATION: This is a 25-year-old female diabetic with noted swelling along the left perianal area about 6 days ago. Yesterday complained of pains and went to the emergency room where she was noted to have a 3 cm abscess. She had dinner at 6 p.m. and therefore was admitted and kept n.p.o. from midnight. Also her blood sugar was elevated and needed medical treatment. DESCRIPTION OF PROCEDURE: The patient was given IV sedation and then placed in a prone jackknife position. The perianal area was prepped and draped in the usual sterile fashion. A timeout was then performed. Next, local anesthesia was infiltrated in the left perianal area, roughly measuring about 3 cm in the diameter. A smaller 1 cm abscess was noted on the left superior perianal area and this was also injected with Xylocaine. Next, a 3 m longitudinal incision was made over the abscess site on the left perianal area and a gush of purulent material came out. Cultures were then obtained. The area was then bluntly dissected with index finger and no evidence of other tunneling noted. There was some necrotic tissue on the surface that was then irrigated with saline solution. An incision was made over the second small abscess site, and a small amount of pus retrieved. Next, the left perianal area abscess site was then packed with Iodoform gauze. Rectal exam was performed and no evidence of fistula noted. The smaller abscess site was very superficial and, therefore, packing was not needed. An attempt was made to place a small packing and it just came out spontaneously. Next, sterile dressings were then placed over the operative sites. Needle, instrument and sponge counts were all correct. Estimated blood loss about 5 mL. The patient was brought to recovery room in satisfactory condition. DICTATING PHYSICIAN: JAMES PANDA M.D. [id number] PHY#: [id number] ID: [id number] JOB#: [id number] ACCT: [id number] cc:JAMES PANDA M.D. >
[2016-11-10] MEDS: OXYCODONE-ACETAMINOPHEN 5-325 MG TABLET PO PRN ×2 (11:18→15:55)
[2016-11-10 15:25] VITALS: BP 107/49
[2016-11-10] MEDS ORDERED: METFORMIN HCL 500 MG TABLET PO SCH (16:00)
[2016-11-10] MEDS ORDERED: INSULIN GLARGINE,HUM.REC.ANLOG 300 UNIT/3 ML INSULN.PEN SUBCUT SCH (22:00)
[2016-11-10] MEDS ORDERED: CIPROFLOXACIN HCL 500 MG TABLET PO SCH (22:00)
[2016-11-10] MEDS ORDERED: INSULIN GLARGINE,HUM.REC.ANLOG 1,000 UNIT/10 ML UNIT SUBCUT SCH (22:00)
--- NOTE | 2016-11-13 22:08 | DISCHARGE SUMMARY E ---
Discharge Summary NAME: FRIDA ALMANZA : 1990 AGE: 25Y ADMITTED: 11/09/2016 DISCHARGED: 11/10/2016 FINAL DIAGNOSIS: Abscess of left perianal area and a smaller abscess on the right superior perianal site. PROCEDURE PERFORMED: Procedure done on 11/10/2016: Incision and drainage of the left perianal abscess and a smaller second right perianal abscess. HISTORY AND HOSPITAL COURSE: This is a 25-year-old diabetic female complaining of pains in the right perianal area on the day of admission. However, she claimed she has been having swelling around the left perianal area for the past 5 to 6 days. She was admitted through the emergency room, and since she just had dinner, she was admitted to be kept NPO from midnight to have the surgery done in the morning. She then underwent incision and drainage of abscess left perianal area and a smaller right perianal site. She was continued on her insulin medications. She apparently was in the hospital November 01 for DKA. Her blood sugar was in the 300s on admission and came in the 200s just prior to surgery. DISPOSITION AND DISCHARGE INSTRUCTIONS: She was then discharged improved after the surgery to be followed up in the surgical clinic in 2 days for removal of the packing. In turn, she was continued on p.o. Cipro 500 mg p.o. twice a day for the next week. DICTATING PHYSICIAN: JAMES PANDA M.D. [id number] PHY#: [id number] ID: [id number] JOB#: [id number] ACCT: [id number] cc:Laxmi TONEY MD, M.D. [facility],
== END 2016-11-10 16:27 | disposition home or self-care (01) ==
LOC: ER 20:57 → INTOOBSV 23:40 → UNDOADMOB 23:40 → EH 23:40 → 4N 11-10 01:02 → EH 11-10 01:02 → UNDODISOB 11-10 16:27
PROVIDERS: ATTEND Surgery
PROC: 0D9Q0ZX Drainage of Anus, Open Approach, Diagnostic (ICD-10-PCS; principal; 2016-11-10 09:00)
DX: K61.0 Anal abscess (principal); E10.65 Type 1 diabetes mellitus with hyperglycemia; Z79.4 Long term (current) use of insulin; F17.210 Nicotine dependence, cigarettes, uncomplicated; Z83.3 Family history of diabetes mellitus; Z98.890 Other specified postprocedural states; Z90.49 Acquired absence of other specified parts of digestive tract
CPT/HCPCS: 46050; 99284; 36415 ×2; 87040; 87070; 87205; 82962 ×2; 85025 ×2; 81025; 87075; 87077 ×2; 80048 ×2; 81001; 82803; G0378 ×2; A6266; J3490 ×3; J2250; J3010; J1815 ×3; J2270; J2405; S0020; J7030; J2704; J3370; J0696; J2543; J0131; 902; J1100

== ENCOUNTER 2016-11-15 12:49 | Emergency (ER) | payer MEDICAID ==
--- NOTE | 2016-11-15 13:52 | ER Document Report ---
ED General - General Chief Complaint: Post Surgical Pain Stated Complaint: POST SURGERY CHECK Time Seen by Provider: 11/15/16 13:42 Notes: 25-year-old female who underwent drainage of a perirectal abscess on Friday this past weekend. This was done at the surgical center by Dr. Krishnan. The patient was supposed to return to the surgical center for repacking of the wound , but she reports she was not able to be scheduled until November 18. Patient reports the packing has fallen out of the abscess after 3 days. She now has increasing discomfort, both in the area of the incision as well as perirectally. She reports discomfort when she has a bowel movement. She is not on stool softeners but she does report that the stool is fairly mushy. She reports her leg is beginning to swell as well. She denies any abdominal pain, nausea or vomiting. TRAVEL OUTSIDE OF THE [place] IN LAST 30 DAYS: No - Related Data Allergies/Adverse Reactions: aspirin Allergy (Mild, Verified 11/15/16 12:55) Hives ibuprofen Allergy (Mild, Verified 11/15/16 12:55) Hives tramadol Allergy (Mild, Verified 11/15/16 12:55) Hives ketorolac [From Toradol] Allergy (Verified 11/15/16 12:55) Past Medical History - Social History Smoking Status: Current Every Day Smoker Frequency of alcohol use: None Drug Abuse: None Family History: Reviewed & Not Pertinent, Malignancy, Thyroid Disfunction - Thyroid cancer - Past Medical History Cardiac Medical History: Denies: Hx Congestive Heart Failure, Hx DVT, Hx Heart Attack, Hx Hypercholesterolemia, Hx Hypertension, Hx Pulmonary Embolism Pulmonary Medical History: Denies: Hx Asthma, Hx COPD Neurological Medical History: Denies: Hx Seizures Endocrine Medical History: Reports: Hx Diabetes Mellitus Type 1 - Insulin- dependent, metformin, lantus, and novalog. Denies: Hx Hyperthyroidism, Hx Hypothyroidism Renal/ Medical History: Reports: Hx Kidney Stones, Hx Ovarian Cysts. Denies: Hx Peritoneal Dialysis GI Medical History: Reports: Hx Gastroesophageal Reflux Disease. Denies: Hx Cirrhosis, Hx Hepatitis Musculoskeltal Medical History: Denies Hx Arthritis, Reports Hx Musculoskeletal Deformity, Reports Hx Musculoskeletal Trauma Skin Medical History: Denies Hx Eczema, Denies Hx Psoriasis Psychiatric Medical History: Reports: Hx Anxiety Denies: Hx Depression Infectious Medical History: Denies: Hx Hepatitis Past Surgical History: Reports: Hx Cholecystectomy, Hx Oral Surgery - Dental surgery, Hx Tubal Ligation, Other - Incision and drainage of multiple perirectal abscesses - Immunizations Hx Diphtheria, Pertussis, Tetanus Vaccination: Yes Review of Systems - Review of Systems Notes: REVIEW OF SYSTEMS: CONSTITUTIONAL : Denies fever, chills, or sweats. Denies recent illness. EENT: Denies eye, ear, throat, or mouth pain or symptoms. Denies nasal or sinus congestion or discharge. Denies throat, tongue, or mouth swelling or difficulty swallowing. CARDIOVASCULAR: Denies chest pain. Denies palpitations or racing or irregular heart beat. Denies ankle edema. RESPIRATORY: Denies cough, cold, or chest congestion. Denies shortness of breath, difficulty breathing, or wheezing. GASTROINTESTINAL: Denies abdominal pain or distention. Denies nausea, vomiting , or diarrhea. Denies blood in vomitus, stools, or per rectum. Denies black, tarry stools. Denies constipation. GENITOURINARY: Denies difficulty urinating, painful urination, burning, frequency, blood in urine, or discharge. MUSCULOSKELETAL: Denies back or neck pain or stiffness. Reports swelling in her leg status post I&D of perirectal abscess. SKIN: Recent drainage of perirectal abscess. See HPI HEMATOLOGIC : Denies easy bruising or bleeding. LYMPHATIC: Denies swollen, enlarged glands. NEUROLOGICAL: Denies confusion or altered mental status. Denies passing out or loss of consciousness. Denies dizziness or lightheadedness. Denies headache. Denies weakness or paralysis or loss of use of either side. Denies problems with gait or speech. Denies sensory loss, numbness, or tingling. Denies seizures. PSYCHIATRIC: Denies anxiety or stress. Denies depression, suicidal ideation, or homicidal ideation. ALL OTHER SYSTEMS REVIEWED AND NEGATIVE. PHYSICAL EXAMINATION: GENERAL: Thin 25-year-old female who appears stated age in no acute distress but with mild discomfort. HEAD: Atraumatic, normocephalic. ENT: Nares patent, oropharynx clear without exudates. Moist mucous membranes. NECK: Normal range of motion, supple without lymphadenopathy LUNGS: Breath sounds clear to auscultation bilaterally and equal. No wheezes rales or rhonchi. HEART: Regular rate and rhythm without murmurs ABDOMEN: Soft, nontender, nondistended abdomen. No guarding, no rebound. No masses appreciated. Rectal: There is a 2-1/2 cm incision which remains open just to the left of the anus. This area is tender but appears to be healing in a normal fashion. The skin around this area and through the cleft of the buttocks is red and inflamed. This rash type of appearance could be from yeast or from discharge from the draining abscess. Musculoskeletal: Normal range of motion, no pitting or edema. Her left leg is approximately 1-1/2 cm larger in circumference than her right leg. NEUROLOGICAL: Cranial nerves grossly intact. Normal speech, normal gait. Normal sensory, motor exams PSYCH: Normal mood, normal affect. SKIN: Warm, Dry, no rashes or lesions noted. Physical Exam - Vital signs Vitals: Temp Pulse Resp BP Pulse Ox 98.5 F 93 20 112/66 97 11/15/16 12:54 11/15/16 12:54 11/15/16 12:54 11/15/16 12:54 11/15/16 12:54 Course - Re-evaluation Re-evalutation: 11/15/16 14:29 After my examination of the patient's blood tox, I was able to speak with Dr. Garnett who also examined the patient in conjunction with me. He agrees that the incision site itself looks to be healing overall well, but she has excoriated tissue in the perirectal area. He encourages ongoing good hygiene with use of antifungal cream and Diflucan. The patient can follow-up in the surgical clinic as previously planned on Friday. I will order a Doppler ultrasound of her left leg to evaluate for possible DVT. 11/15/16 15:13 Doppler ultrasound of the left lower extremity does not show any obstruction, no DVT. During the exam, the patient is having notable spasm and cramping in her left foot. This is making her notably uncomfortable. We will treat her with 5 mg of Valium p.o. - Vital Signs Vital signs: Temp Pulse Resp BP Pulse Ox 98.5 F 93 20 112/66 97 11/15/16 12:54 11/15/16 12:54 11/15/16 12:54 11/15/16 12:54 11/15/16 12:54 Discharge - Discharge Clinical Impression: Status post varun-rectal abscess repair, follow-up exam, Left leg swelling Condition: Good Disposition: HOME, SELF-CARE Additional Instructions: The incision area appears to be open and draining and is doing okay. You have excoriated skin, a bad rash, through the area which is also notably bothersome. Use nystatin/triamcinolone cream to treat this area. Follow-up with Dr. Krishnan or Dr. Garnett at the surgical clinic on Friday as planned. Your ultrasound of the left leg did not show any blood clot. Continue usual care for your diabetes. Return to the emergency department if you have fevers, uncontrolled pain, or other urgent concerns. Prescriptions: Nystatin/Triamcin [Nystatin-Triamcinolone Ointm] 30 gm TP TID #1 oint...g.
[2016-11-15] MEDS ORDERED: NYSTATIN/TRIAMCIN CREAM 15 GM TP ONE (14:31)
--- NOTE | 2016-11-15 15:07 | CONSULTATION REPORT E ---
Consultation Report NAME: FRIDA ALMANZA : 1990 AGE: 25Y DATE: 11/15/2017 TO: HARRIETT PASCUAL M.D. FROM: Cortes MEJIA, Requesting Physician REASON FOR CONSULTATION: Patient seen at the request of Dr. Lira. CHIEF COMPLAINT: Perineal infection. REPORT OF CONSULTATION: The patient is a 25-year-old white female, brittle diabetic, who is in the emergency department today complaining of perineal pain. The patient is 5 days status post exam under anesthesia, perianal abscess drainage. The procedure was performed by Dr. Krishnan. The patient has been showering, by her report. She has completed her antibiotic course. The patient was seen in the emergency department, opinion was requested regarding the status of the postoperative incision. Past medical and surgical history can be found in the history and physical document. The patient is examined in room 5 in the emergency department. She is examined in the right lateral decubitus position. PHYSICAL EXAMINATION: GENERAL: The patient is in moderate distress. SKIN: Integument significant for extensive maculopapular rashes about the lower extremities. PERINEUM: The perineum is examined. The operative I and D sites in the perineal area appreciated. The larger one in the left lateral position is open with some granulation tissue and minimal fibrinous debris. There is no evidence of foul smell or drainage. The perineum itself is very erythematous extending around the perianal tissue towards the perineal body and even the labia majora. The remainder of the examination is nonfocal. IMPRESSION: 1. Status post incision and drainage of perianal abscess with satisfactory postoperative course; 2. Perineal cellulitis, possibly of fungal etiology. 3. Diabetes mellitus. 4. Previous strep and bacteroides infection at the perianal abscess site, now drained. RECOMMENDATIONS: 1. No indication for further surgical intervention. 2. Suggest continue Sitz baths, with careful perineal care. 3. The patient may require antifungal cream with concomitant steroidal component. The above discussed with Dr. Lira, emergency room physician. DICTATING PHYSICIAN: HARRIETT PASCUAL M.D. [id number] PHY#: [id number] ID: [id number] JOB#: [id number] ACCT: [id number] cc:HARRIETT PASCUAL M.D. >
[2016-11-15] MEDS ORDERED: DIAZEPAM 5 MG TABLET PO ONE (15:13)
[2016-11-15 15:45] VITALS: BP 101/64
--- NOTE | 2016-11-15 15:49 | RADIOLOGY REPORT (SQ) ---
EXAM DESCRIPTION: VENOUS UNILATERAL LOWER COMPLETED DATE/TIME: 11/15/2016 3:37 pm REASON FOR STUDY: Swelling, left leg. Evaluate for DVT COMPARISON: None. TECHNIQUE: Dynamic and static may scale and color images acquired of the left leg venous system. Se lected spectral images acquired with additional compression and augmentation maneuvers. The contralat eral common femoral vein and saphenofemoral junction were also imaged. Images stored on PACS. LIMITATIONS: None. FINDINGS: LEFT COMMON FEMORAL: Normal phasicity, compression and augmentation. No visualized echogenic material on g ray scale. No defects on color images. FEMORAL: Normal compression and augmentation. No visualized echogenic material on may scale. No defe cts on color images. POPLITEAL: Normal compression, augmentation. No visualized echogenic material on may scale. No defec ts on color images. CALF VESSELS: Normal compression, augmentation. No visualized echogenic material on may scale. No de fects on color images. GSV : Normal compression, augmentation. No visualized echogenic material on may scale. No defects on color images. ANY DEEP VENOUS INSUFFICIENCY: Not evaluated. ANY EVIDENCE OF POPLITEAL CYST: No. OTHER: No other significant finding. RIGHT COMMON FEMORAL VEIN AND SAPHENOFEMORAL JUNCTION: Normal phasicity, compression and augmentation. No visualized echogenic material on may scale. No de fects on color images. IMPRESSION: NO EVIDENCE OF DVT OR SVT IN THE LEFT LEG. TECHNICAL DOCUMENTATION: JOB ID: [id number] [employer]- All Rights Reserved
== END 2016-11-15 15:59 | disposition home or self-care (01) ==
LOC: ER 12:49
DX: Z48.817 Encounter for surgical aftercare following surgery on the skin and subcutaneous tissue (principal); M79.89 Other specified soft tissue disorders; E10.9 Type 1 diabetes mellitus without complications; F17.200 Nicotine dependence, unspecified, uncomplicated; Z88.6 Allergy status to analgesic agent; Z88.5 Allergy status to narcotic agent; Z88.8 Allergy status to other drugs, medicaments and biological substances
CPT/HCPCS: 99284; 93971; J3490 ×2

== ENCOUNTER 2016-12-12 19:42 | Observation (INO) | payer MEDICAID ==
--- NOTE | 2016-12-12 20:11 | ER Document Report ---
ED Medical Screen (RME) - General Chief Complaint: Abscess Stated Complaint: ABSCESS Time Seen by Provider: 12/12/16 20:11 Mode of Arrival: Ambulatory Information source: Patient Notes: 26-year-old female history of perirectal abscess presents with complaints of another perirectal abscess. Patient was here last month with similar complaints requiring incision and drainage I have greeted and performed a rapid initial assessment of this patient. A comprehensive ED assessment and evaluation of the patient, analysis of test results and completion of the medical decision making process will be conducted by additional ED providers. PHYSICAL EXAMINATION: GENERAL: Well-appearing, well-nourished and in no acute distress. HEAD: Atraumatic, normocephalic. EYES: Pupils equal round extraocular movements intact, conjunctiva are normal. ENT: Nares patent NECK: Normal range of motion LUNGS: No respiratory distress Musculoskeletal: Normal range of motion NEUROLOGICAL: Normal speech, normal gait. PSYCH: Normal mood, normal affect. SKIN: will require room for further exam TRAVEL OUTSIDE OF THE [place] IN LAST 30 DAYS: No - Related Data Allergies/Adverse Reactions: aspirin Allergy (Mild, Verified 11/15/16 12:55) Hives ibuprofen Allergy (Mild, Verified 11/15/16 12:55) Hives tramadol Allergy (Mild, Verified 11/15/16 12:55) Hives ketorolac [From Toradol] Allergy (Verified 11/15/16 12:55) Past Medical History - Social History Chew tobacco use (# tins/day): No Frequency of alcohol use: Rare Drug Abuse: None Family history: Reviewed & Not Pertinent - Past Medical History Cardiac Medical History: Denies: Hx Congestive Heart Failure, Hx DVT, Hx Heart Attack, Hx Hypercholesterolemia, Hx Hypertension, Hx Pulmonary Embolism Pulmonary Medical History: Denies: Hx Asthma, Hx COPD Neurological Medical History: Denies: Hx Seizures Endocrine Medical History: Reports: Hx Diabetes Mellitus Type 1 - Insulin- dependent, metformin, lantus, and novalog. Denies: Hx Hyperthyroidism, Hx Hypothyroidism Renal/ Medical History: Reports: Hx Kidney Stones, Hx Ovarian Cysts. Denies: Hx Peritoneal Dialysis GI Medical History: Reports: Hx Gastroesophageal Reflux Disease. Denies: Hx Cirrhosis, Hx Hepatitis Musculoskeltal Medical History: Denies Hx Arthritis, Reports Hx Musculoskeletal Deformity, Reports Hx Musculoskeletal Trauma Skin Medical History: Denies Hx Eczema, Denies Hx Psoriasis Psychiatric Medical History: Reports: Hx Anxiety Denies: Hx Depression Infectious Medical History: Denies: Hx Hepatitis Past Surgical History: Reports: Hx Cholecystectomy, Hx Oral Surgery - Dental surgery, Hx Tubal Ligation, Other - Incision and drainage of multiple perirectal abscesses - Immunizations Hx Diphtheria, Pertussis, Tetanus Vaccination: Yes - 2016 History of Influenza Vaccine for 12/2016 - 05/2017 Season: No Physical Exam - Vital signs Vitals: Temp Pulse Resp BP Pulse Ox 97.8 F 95 16 115/67 95 12/12/16 19:57 12/12/16 19:57 12/12/16 19:57 12/12/16 19:57 12/12/16 19:57 Course - Vital Signs Vital signs: Temp Pulse Resp BP Pulse Ox 97.8 F 95 16 115/67 95 12/12/16 19:57 12/12/16 19:57 12/12/16 19:57 12/12/16 19:57 12/12/16 19:57
[2016-12-12] MEDS ORDERED: ONDANSETRON HCL INJ/PF 4 MG/2 ML SDV IV ONE (21:05)
[2016-12-12] MEDS ORDERED: MORPHINE SULFATE 10 MG/ML INJ IV ONE (21:05)
--- NOTE | 2016-12-12 21:18 | ER Document Report ---
ED General - General Chief Complaint: Abscess Stated Complaint: ABSCESS Time Seen by Provider: 12/12/16 20:11 Mode of Arrival: Ambulatory Notes: Patient is a 26-year-old female comes emergency department for chief complaint of perirectal abscess on the left side. She states that last month she had this drained surgically in the operating room by Dr. Krishnan, she was seen once on a follow-up, she has not taken antibiotics in about 3 weeks. She denies fever, vomiting. She does report pain with bowel movement with switching back she is doing. TRAVEL OUTSIDE OF THE [place] IN LAST 30 DAYS: No - Related Data Allergies/Adverse Reactions: aspirin Allergy (Mild, Verified 11/15/16 12:55) Hives ibuprofen Allergy (Mild, Verified 11/15/16 12:55) Hives tramadol Allergy (Mild, Verified 11/15/16 12:55) Hives ketorolac [From Toradol] Allergy (Verified 11/15/16 12:55) Past Medical History - General Information source: Patient - Social History Smoking Status: Current Every Day Smoker Chew tobacco use (# tins/day): No Frequency of alcohol use: Rare Drug Abuse: None Lives with: Alone Family History: Reviewed & Not Pertinent, Malignancy, Thyroid Disfunction - Thyroid cancer Patient has suicidal ideation: No Patient has homicidal ideation: No - Past Medical History Cardiac Medical History: Denies: Hx Congestive Heart Failure, Hx DVT, Hx Heart Attack, Hx Hypercholesterolemia, Hx Hypertension, Hx Pulmonary Embolism Pulmonary Medical History: Denies: Hx Asthma, Hx COPD Neurological Medical History: Denies: Hx Seizures Endocrine Medical History: Reports: Hx Diabetes Mellitus Type 1 - Insulin- dependent, metformin, lantus, and novalog. Denies: Hx Hyperthyroidism, Hx Hypothyroidism Renal/ Medical History: Reports: Hx Kidney Stones, Hx Ovarian Cysts. Denies: Hx Peritoneal Dialysis GI Medical History: Reports: Hx Gastroesophageal Reflux Disease. Denies: Hx Cirrhosis, Hx Hepatitis Musculoskeltal Medical History: Denies Hx Arthritis, Reports Hx Musculoskeletal Deformity, Reports Hx Musculoskeletal Trauma Skin Medical History: Denies Hx Eczema, Denies Hx Psoriasis Psychiatric Medical History: Reports: Hx Anxiety Denies: Hx Depression Infectious Medical History: Denies: Hx Hepatitis Past Surgical History: Reports: Hx Cholecystectomy, Hx Oral Surgery - Dental surgery, Hx Tubal Ligation, Other - Incision and drainage of multiple perirectal abscesses - Immunizations Hx Diphtheria, Pertussis, Tetanus Vaccination: Yes - 2015 Review of Systems - Review of Systems Constitutional: No symptoms reported EENT: No symptoms reported Cardiovascular: No symptoms reported Respiratory: No symptoms reported Gastrointestinal: See HPI Genitourinary: No symptoms reported Female Genitourinary: No symptoms reported Musculoskeletal: No symptoms reported Skin: See HPI Hematologic/Lymphatic: No symptoms reported Neurological/Psychological: No symptoms reported Physical Exam - Vital signs Vitals: Temp Pulse Resp BP Pulse Ox 97.8 F 95 16 115/67 95 12/12/16 19:57 12/12/16 19:57 12/12/16 19:57 12/12/16 19:57 12/12/16 19:57 Interpretation: Normal - General General appearance: Appears well, Alert In distress: None - Patient is somewhat disheveled in appearance but she does not appear to be in distress - HEENT Head: Normocephalic, Atraumatic Eyes: Normal Conjunctiva: Normal Extraocular movements intact: Yes Eyelashes: Normal Pupils: PERRL Nasal: Normal Mouth/Lips: Normal Mucous membranes: Normal Pharynx: Normal Neck: Normal - Respiratory Respiratory status: No respiratory distress Chest status: Nontender Breath sounds: Normal. No: Decreased air movement, Wheezing Chest palpation: Normal - Cardiovascular Rhythm: Regular. No: Tachycardia Heart sounds: Normal auscultation, S1 appreciated, S2 appreciated Murmur: No - Abdominal Inspection: Normal Distension: No distension Bowel sounds: Normal Tenderness: Nontender. No: Tender, Guarding Organomegaly: No organomegaly - Rectal Stool: Other - There is a tender, erythematous, indurated, and fluctuant area to the 8 o'clock position about half a centimeter away from the rectum, there is minimal drainage occurring from the area as well area is significantly tender. Area inside the rectum at the 8 o'clock position is also very tender. ERMA Sutherland present during exam - Back Back: Normal, Nontender - Extremities General upper extremity: Normal inspection, Nontender, Normal color, Normal ROM , Normal temperature General lower extremity: Normal inspection, Nontender, Normal color, Normal ROM , Normal temperature, Normal weight bearing. No: Raúl's sign - Neurological Neuro grossly intact: Yes Cognition: Normal Orientation: AAOx4 [place] Coma Scale Eye Opening: Spontaneous Melita Coma Scale Verbal: Oriented [place] Coma Scale Motor: Obeys Commands [place] Coma Scale Total: 15 Speech: Normal Motor strength normal: LUE, RUE, LLE, RLE Sensory: Normal - Psychological Associated symptoms: Normal affect, Normal mood - Skin Skin Temperature: Warm Skin Moisture: Dry Skin Color: Normal Course - Re-evaluation Re-evalutation: Patient afebrile, vital signs unremarkable, no leukocytosis, however concern about patient's exam with recurrence of infection in the same area, perirectal abscess, erythema of the area and significant tenderness. Called surgeon circulation tender Dr. Costello, he recommends pelvic CAT scan because of recurrence. Pelvic CAT scan does not specifically show any deep abscess or concerning abnormality. Called Dr. Costello again and he will evaluate the patient. Patient was evaluated, Dr. Costello, recommends a dose of diflucan for possible fungal component and states that he will admit the patient for exploration of the area in the operating room in the morning. Patient is in agreement with this plan. - Vital Signs Vital signs: Temp Pulse Resp BP Pulse Ox 98.5 F 82 18 112/66 98 12/13/16 05:00 12/13/16 05:00 12/13/16 05:00 12/13/16 05:00 12/13/16 05:00 - Laboratory Result Diagrams: 12/12/16 21:39 12/12/16 21:39 Laboratory results interpreted by me: 12/12/16 21:39 Creatinine 0.48 L Glucose 255 H Discharge - Discharge Clinical Impression: Perirectal abscess Condition: Stable Disposition: ADMITTED INPATIENT Admitting Provider: Surgicalist Unit Admitted: Surgical Floor
[2016-12-12 21:48] LABS: ABSOLUTE BASOPHILS # (AUTO) 0.1 10^3/uL (0.0-0.2); ABSOLUTE EOSINOPHILS # (AUTO) 0.3 10^3/uL (0.0-0.6); ABSOLUTE LYMPHOCYTES (AUTO) 3.4 10^3/uL (0.5-4.7); ABSOLUTE MONOCYTES (AUTO) 0.6 10^3/uL (0.1-1.4); ABSOLUTE NEUT (AUTO) 4.1 10^3/uL (1.7-8.2); HEMATOCRIT 37.5 % (36.0-47.0); HGB HCT DIFFERENCE 1.5; LYMPHOCYTES % (AUTO) 39.9 % (13-45); MEAN CORPUSCULAR HEMOGLOBIN 31.3 pg (27.0-33.4); MEAN CORPUSCULAR HGB CONC 34.8 g/dL (32.0-36.0); MEAN CORPUSCULAR VOLUME 90 fl (80-97); MONOCYTES % (AUTO) 7.7 % (3-13); RED BLOOD COUNT 4.16 10^6/uL (3.72-5.28); RED CELL DISTRIBUTION WIDTH 13.7 % (11.5-14.0); SEGMENTED NEUTROPHILS % (AUTO) 48.4 % (42-78); WHITE BLOOD COUNT 8.5 10^3/uL (4.0-10.5)
[2016-12-12 22:05] LABS: ANION GAP 9 (5-19); BLOOD UREA NITROGEN 17 mg/dL (7-20); CALCIUM 10.2 mg/dL (8.4-10.2); CARBON DIOXIDE 29 mmol/L (22-30); CHLORIDE 101 mmol/L (98-107); CREATININE RESULT 0.48 mg/dL (0.52-1.25); GLUCOSE 255 mg/dL (75-110); POTASSIUM 4.1 mmol/L (3.6-5.0); SODIUM 139.2 mmol/L (137-145)
--- NOTE | 2016-12-12 23:06 | RADIOLOGY REPORT (SQ) ---
EXAM DESCRIPTION: CT PELVIS WITH COMPLETED DATE/TIME: 12/12/2016 10:51 pm REASON FOR STUDY: eval abscess (varun-rectal) COMPARISON: None. TECHNIQUE: CT scan of the pelvis performed without intravenous or oral contrast. Images reviewed wi th soft tissue and bone windows. Reconstructed coronal and sagittal MPR images reviewed. All images stored on PACS. All CT scanners at this facility use dose modulation, iterative reconstruction, and/or weight based d osing when appropriate to reduce radiation dose to as low as reasonably achievable (ALARA). [facility]: Dose Right [facility]: CareDose [facility]: Dose Right [facility]: Teradose 4D [facility]: [employer] RADIATION DOSE: Up-to-date CT equipment and radiation dose reduction techniques were employed. CTDIv ol: 7.0 - 7.0 mGy. DLP: 510 mGy-cm. mGy. LIMITATIONS: None. FINDINGS: PELVIC BONES: No acute fracture. No worrisome bone lesions. VISUALIZED SPINE: No acute findings. HIP(S): No acute fracture or dislocation. No worrisome bone lesions. PELVIC SOFT TISSUES: No significant findings. Trace cul-de-sac free fluid. EXTRAPELVIC SOFT TISSUES: No significant findings. OTHER: No other significant finding. IMPRESSION: NO ACUTE OR SIGNIFICANT FINDINGS. TECHNICAL DOCUMENTATION: JOB ID: [id number] Quality ID # [id number]: Final reports with documentation of one or more dose reduction techniques (e.g., Au tomated exposure control, adjustment of the mA and/or kV according to patient size, use of iterative reconstruction technique) 2010 [employer]- All Rights Reserved
[2016-12-12] MEDS ORDERED: FLUCONAZOLE 400 MG/NS RTU 400 MG/200 ML RTUPB IV ONE (23:52)
[2016-12-13] MEDS ORDERED: NORMAL SALINE 1000 ML 1,000 ML IV PRN ×2 (00:02→09:31)
--- NOTE | 2016-12-13 00:02 | PDOC H&P ---
History of Present Illness Admission Date/PCP: DENVER STAFFORD PA-C Patient complains of: Left perianal pain History of Present Illness: FRIDA ALMANZA is a 26 year old female with history of multiple perianal abscesses in the past year status post 3 separate incision and drainage procedures. The last one about a month ago. Patient apparently was doing well up until about a week ago when she had recurrence of the pain with tenderness. She has pain with bowel movements. Denies any fever. She has an active yeast infection and has a lot of irritation at her perineum. Past Medical History Cardiac Medical History: Denies: Congestive Heart Failure, DVT, Myocardial Infarction, Hyperlipidema, Hypertension, Pulmonary Embolism Pulmonary Medical History: Denies: Asthma, Chronic Obstructive Pulmonary Disease (COPD) Neurological Medical History: Denies: Seizures Endocrine Medical History: Reports: Diabetes Mellitus Type 1 - Insulin-dependent , metformin, lantus, and novalog Denies: Hyperthyroidism, Hypothyroidism GI Medical History: Reports: Gastroesophageal Reflux Disease Denies: Cirrhosis, Hepatitis Musculoskeltal Medical History: Denies: Arthritis Skin Medical History: Denies: Eczema, Psoriasis Psychiatric Medical History: Denies: Depression Past Surgical History Past Surgical History: Reports: Cholecystectomy, Tubal Ligation, Other - Incision and drainage of multiple perirectal abscesses Social History Smoking Status: Current Every Day Smoker Frequency of Alcohol Use: Rare Hx Recreational Drug Use: No - denies Drugs: None Hx Prescription Drug Abuse: No Family History Family History: Reviewed & Not Pertinent, Malignancy, Thyroid Disfunction - Thyroid cancer Parental Family History Reviewed: No Children Family History Reviewed: No Sibling(s) Family History Reviewed.: No Medication/Allergy Home Medications: Insulin Aspart [Novolog Insulin (Aspart) 100 unit/mL] 10 unit SUBCUT AC Insulin Degludec [Tresiba Flextouch U-100] 30 unit SQ QHS 11/01/16 Metformin HCl [Glucophage] 1,000 mg PO BIDBS 11/01/16 Nystatin/Triamcin [Nystatin-Triamcinolone Ointm] 30 gm TP TID #1 oint...g. 11/15 Allergies/Adverse Reactions: aspirin Allergy (Mild, Verified 11/15/16 12:55) Hives ibuprofen Allergy (Mild, Verified 11/15/16 12:55) Hives tramadol Allergy (Mild, Verified 11/15/16 12:55) Hives ketorolac [From Toradol] Allergy (Verified 11/15/16 12:55) Physical Exam Vital Signs: Temp Pulse Resp BP Pulse Ox 97.8 F 93 18 101/73 95 12/12/16 19:57 12/12/16 21:42 12/12/16 21:42 12/12/16 21:42 12/12/16 19:57 Intake & Output 12/11/16 12/12/16 12/13/16 06:59 06:59 06:59 Weight 65.4 kg General appearance: PRESENT: no acute distress, cooperative Eye exam: PRESENT: conjunctiva pink Respiratory exam: PRESENT: clear to auscultation adriel Cardiovascular exam: PRESENT: RRR GI/Abdominal exam: PRESENT: other - Soft, nondistended, nontender to palpation. Rectal exam: PRESENT: other - Open wound at the left perianal region with a scar posterior to it in between the 2 there is a small opening with purulent drainage. With marked tenderness to palpation and a slight sense of fluctuance. Patient has a lot of pain in this region. Gentrourinary exam: PRESENT: other - Diffuse erythema at her perineum extending to the perianal region. Neurological exam: PRESENT: alert, awake, oriented to situation Psychiatric exam: PRESENT: appropriate affect Skin exam: PRESENT: warm Results Laboratory Results: 12/12/16 21:39 12/12/16 21:39 12/12/16 12/12/16 12/12/16 21:39 21:39 21:39 WBC 8.5 RBC 4.16 Hgb 13.0 Hct 37.5 MCV 90 MCH 31.3 MCHC 34.8 RDW 13.7 Plt Count 209 Seg Neutrophils % 48.4 Lymphocytes % 39.9 Monocytes % 7.7 Eosinophils % 3.0 Basophils % 1.0 Absolute Neutrophils 4.1 Absolute Lymphocytes 3.4 Absolute Monocytes 0.6 Absolute Eosinophils 0.3 Absolute Basophils 0.1 Sodium 139.2 Potassium 4.1 Chloride 101 Carbon Dioxide 29 Anion Gap 9 BUN 17 Creatinine 0.48 L Est GFR ( Amer) > 60 Est GFR (Non-Af Amer) > 60 Glucose 255 H Calcium 10.2 Serum HCG, Qual NEGATIVE Impressions: Pelvis CT 12/12/16 21:03 IMPRESSION: NO ACUTE OR SIGNIFICANT FINDINGS. Assessment & Plan - Diagnosis (1) Perianal abscess Is this a current diagnosis for this admission?: Yes Plan: With history of multiple recurrences. Highly suspicious for a fistula in anal. Will admit the patient lacer on Diflucan for her yeast infection as well as Flagyl and Unasyn. Will discuss with the oncoming surgeon about exam under anesthesia with perianal abscess drainage and possible fistulotomy versus seton placement if she indeed has a fistula. I have explained to the patient admit the nature of the surgery and the risk and benefits including risk of recurrence and incontinence. She understands and agrees to proceed.
[2016-12-13] MEDS ORDERED: DEXTROSE 50%-WATER 25 GM/50 ML DISP.SYRIN IV PRN ×2 (00:05)
[2016-12-13] MEDS ORDERED: GLUCAGON,HUMAN RECOMB 1 MG INJ IM PRN (00:05)
[2016-12-13] MEDS ORDERED: DEXTROSE 40% GEL 15 GM TUBE PO PRN ×2 (00:05)
[2016-12-13] MEDS ORDERED: INSULIN REG, HUMAN 100 UNIT/ML 3 ML VIAL (PYX) SUBCUT PRN (00:05)
[2016-12-13] MEDS ORDERED: AMPICILLIN SOD/SULBACTAM 3 GM VIAL IV PRN (00:16)
[2016-12-13] MEDS ORDERED: AMPICILLIN SODIUM/SULBACTAM NA 3 GM in NORMAL SALINE 100 ML IV ONE (00:30)
[2016-12-13] MEDS ORDERED: METRONIDAZOLE 500 MG/NS RTU 100 ML IV ONE (00:30)
[2016-12-13] MEDS ORDERED: METRONIDAZOLE 500 MG/NS RTU 100 ML IV SCH ×2 (06:00→14:00)
[2016-12-13] MEDS ORDERED: AMPICILLIN SODIUM/SULBACTAM NA 3 GM in NORMAL SALINE 100 ML IV SCH (06:00)
[2016-12-13] MEDS ORDERED: FENTANYL CITRATE INJ/PF 100 MCG/2 ML AMPUL ONE (07:52)
[2016-12-13] MEDS ORDERED: MIDAZOLAM 2 MG/2 ML INJ ONE (07:52)
[2016-12-13] MEDS ORDERED: LIDOCAINE 2% INJ-PF (20 MG/ML) 10 ML AMPUL ONE (07:52)
[2016-12-13] MEDS ORDERED: PROPOFOL INJ 200 MG/20 ML VIAL IV ONE (07:53)
[2016-12-13] MEDS ORDERED: ONDANSETRON HCL INJ/PF 4 MG/2 ML SDV ONE (07:53)
[2016-12-13] MEDS ORDERED: LIDOCAINE 0.5% INJ-PF (5 MG/ML) 50 ML SDV ONE (08:14)
[2016-12-13] MEDS ORDERED: PROMETHAZINE HCL INJ 25 MG/1 ML VIAL IV PRN ×2 (08:47)
[2016-12-13] MEDS ORDERED: OXYCODONE-ACETAMINOPHEN 5-325 MG TABLET PO PRN ×3 (08:47→09:31)
[2016-12-13] MEDS ORDERED: FENTANYL CITRATE INJ/PF 100 MCG/2 ML AMPUL IV PRN ×3 (08:47)
[2016-12-13] MEDS ORDERED: MORPHINE SULFATE 10 MG/ML INJ IV PRN ×2 (08:47→09:31)
[2016-12-13] MEDS ORDERED: MEPERIDINE HCL/PF INJ 25 MG/1 ML DISP.SYRIN IV PRN (08:47)
[2016-12-13] MEDS ORDERED: DIPHENHYDRAMINE HCL 50 MG/ML VIAL IV PRN (08:47)
[2016-12-13] MEDS: FENTANYL CITRATE INJ/PF 100 MCG/2 ML AMPUL ONE ×2 (09:28→09:33)
--- NOTE | 2016-12-13 10:07 | OPERATIVE REPORT E ---
Operative Report NAME: FRIDA ALMANZA : 1990 AGE: 26Y DATE OF SURGERY: 12/13/2016 ROOM: 208 PREOPERATIVE DIAGNOSIS: Abscess left perianal area. POSTOPERATIVE DIAGNOSIS: Abscess left perianal area. PROCEDURE: Incision and drainage left perianal area. SURGEON: JAMES PANDA M.D. ANESTHESIA: General. INDICATIONS: This is a 26-year-old female who noted pain and swelling on the left perianal area. She had previous I and D of this site about a months ago. DESCRIPTION OF PROCEDURE: After adequate general anesthesia, patient was placed in lithotomy position and the perianal area was then prepped and draped in the usual sterile fashion. The left perianal area has thick scarring and a little bit of fluctuation towards the area of the rectum. The anal area was inspected with a speculum and attempted to probe any potential fistula, but no definite fistula noted. Next, an incision made over the thick scar and towards the area of fluctuation was done. A small amount of purulent material was noted and cultures were obtained. Finger dissection around the area was done but no definite evidence of pus collection noted. Incision extended further posteriorly to a total distance of about 4 cm. The area was subsequently irrigated with saline solution. Attempt to place a probe from the incision to the rectum was done but still no definite evidence of any fistula. Because of this, the incision was then packed with 1/2 inch iodoform gauze. The depth was about 3 cm and towards the posterior side. There is a smaller cavity towards the posterior side but no definite abscess noted. The area was then completely packed with 1/2 inch iodoform gauze. A sterile dressing was placed over the operative site over the packing. Patient tolerated the procedure well. Needle, instrument, and sponge counts were all correct. Estimated blood loss about 10 mL. Patient then brought to the recovery room in satisfactory condition. DICTATING PHYSICIAN: JAMES PANDA M.D. [id number] PHY#: [id number] ID: [id number] JOB#: [id number] ACCT: [id number] cc:JAMES PANDA M.D. >
[2016-12-13] MEDS ORDERED: CIPROFLOXACIN 400 MG/D5W RTU 400 MG/200 ML RTUPB IV SCH (11:00)
[2016-12-13] MEDS ORDERED: SUCCINYLCHOLINE CHLORIDE INJ 200 MG/10 ML VIAL ONE (11:56)
[2016-12-13 14:05] VITALS: BP 112/66
== END 2016-12-13 14:15 | disposition home or self-care (01) ==
LOC: ER 19:42 → EH 12-13 00:01 → INTOOBSV 12-13 00:01 → UNDOADMOB 12-13 00:01 → EH 12-13 00:02 → 2N 12-13 01:21
PROVIDERS: ATTEND Surgery
PROC: 0D9Q0ZZ Drainage of Anus, Open Approach (ICD-10-PCS; principal; 2016-12-13 08:15)
DX: K61.0 Anal abscess (principal); B37.9 Candidiasis, unspecified; F17.200 Nicotine dependence, unspecified, uncomplicated; E10.9 Type 1 diabetes mellitus without complications; Z79.4 Long term (current) use of insulin; Z98.890 Other specified postprocedural states; Z90.49 Acquired absence of other specified parts of digestive tract
CPT/HCPCS: 99285; 96374; 96375; 36415; 87040; 87070; 87205; 82962; 84703; 85025; 87075; 87077; 80048; 87186; 72193; 46050; G0378 ×2; J2250; J3010; J0295; J3490 ×2; J2270 ×2; J1815; J0330; J2405 ×2; J7030; J2704; J0744; 902

== ENCOUNTER 2016-12-23 20:43 | Emergency (ER) | payer MEDICAID ==
[2016-12-23 22:55] LABS: ABSOLUTE BASOPHILS # (AUTO) 0.1 10^3/uL (0.0-0.2); ABSOLUTE EOSINOPHILS # (AUTO) 0.3 10^3/uL (0.0-0.6); ABSOLUTE MONOCYTES (AUTO) 0.4 10^3/uL (0.1-1.4); ABSOLUTE NEUT (AUTO) 4.9 10^3/uL (1.7-8.2); BASOPHILS % (AUTO) 0.9 % (0-2); EOSINOPHILS % (AUTO) 3.5 % (0-6); HEMATOCRIT 42.3 % (36.0-47.0); HEMOGLOBIN 14.7 g/dL (12.0-15.5); HGB HCT DIFFERENCE 1.8; LYMPHOCYTES % (AUTO) 34.6 % (13-45); MEAN CORPUSCULAR HEMOGLOBIN 31.4 pg (27.0-33.4); MEAN CORPUSCULAR HGB CONC 34.9 g/dL (32.0-36.0); MEAN CORPUSCULAR VOLUME 90 fl (80-97); MONOCYTES % (AUTO) 4.9 % (3-13); RED CELL DISTRIBUTION WIDTH 13.3 % (11.5-14.0); SEGMENTED NEUTROPHILS % (AUTO) 56.1 % (42-78); WHITE BLOOD COUNT 8.8 10^3/uL (4.0-10.5)
[2016-12-23 22:59] LABS: APPEARANCE,URINE CLEAR; BILIRUBIN,URINE NEGATIVE (NEGATIVE); GLUCOSE, URINE >=500 mg/dL (NEGATIVE); KETONES,URINE NEGATIVE (NEGATIVE); LEUKOCYTE ESTERASE,URINE SMALL (NEGATIVE); NITRITE,URINE NEGATIVE (NEGATIVE); PROTEIN,URINE NEGATIVE (NEGATIVE); URINE SPECIFIC GRAVITY 1.038; UROBILINOGEN,URINE NEGATIVE mg/dL (<2.0)
[2016-12-23 23:05] LABS: PROTHROMBIN TIME 12.1 SEC (11.4-15.4)
[2016-12-23 23:08] LABS: ALANINE AMINOTRANSFERASE 37 U/L (9-52); ALBUMIN 4.1 g/dL (3.5-5.0); ALKALINE PHOSPHATASE 101 U/L (38-126); ANION GAP 14 (5-19); ASPARTATE AMINO TRANSFERASE 15 U/L (14-36); BILIRUBIN,DIRECT 0.4 mg/dL (0.0-0.4); BILIRUBIN,TOTAL 0.4 mg/dL (0.2-1.3); BLOOD UREA NITROGEN 15 mg/dL (7-20); CALCIUM 9.6 mg/dL (8.4-10.2); CARBON DIOXIDE 27 mmol/L (22-30); CHLORIDE 98 mmol/L (98-107); CREATININE RESULT 0.48 mg/dL (0.52-1.25); GLUCOSE 305 mg/dL (75-110); POTASSIUM 4.1 mmol/L (3.6-5.0); SODIUM 138.9 mmol/L (137-145); TOTAL PROTEIN 6.5 g/dL (6.3-8.2)
[2016-12-24] MEDS ORDERED: FLUCONAZOLE 100 MG TABLET PO ONE (01:25)
[2016-12-24] MEDS ORDERED: HYDROMORPHONE HCL INJ/PF 2 MG/ML AMPULE IV ONE (01:25)
--- NOTE | 2016-12-24 02:56 | ER Document Report ---
ED General - General Chief Complaint: Abscess Stated Complaint: POSSIBLE ABSCESS Time Seen by Provider: 12/24/16 01:04 Notes: Patient is a 26-year-old female presents with complaint of possible recurrence of perirectal abscess. She has had this area incised and drained 4 times. Last time she had a drain was earlier this month. No fevers. No vomiting. No diarrhea. She is a type I diabetic and has a history of recurrent yeast type infection in that area. She says she has taken Diflucan once in the past. She said she is clotrimazole cream which she said maybe helped a small amount. She tried nystatin cream and said that made it worse. She comes back today she feels a small area of induration that is painful that she thinks may be recurrence of the abscess. TRAVEL OUTSIDE OF THE [place] IN LAST 30 DAYS: No - Related Data Allergies/Adverse Reactions: aspirin Allergy (Mild, Verified 11/15/16 12:55) Hives ibuprofen Allergy (Mild, Verified 11/15/16 12:55) Hives tramadol Allergy (Mild, Verified 11/15/16 12:55) Hives ketorolac [From Toradol] Allergy (Verified 11/15/16 12:55) Past Medical History - Social History Smoking Status: Unknown if Ever Smoked Frequency of alcohol use: None Drug Abuse: None Family History: Reviewed & Not Pertinent, Malignancy, Thyroid Disfunction - Thyroid cancer Patient has suicidal ideation: No Patient has homicidal ideation: No - Past Medical History Cardiac Medical History: Denies: Hx Congestive Heart Failure, Hx DVT, Hx Heart Attack, Hx Hypercholesterolemia, Hx Hypertension, Hx Pulmonary Embolism Pulmonary Medical History: Denies: Hx Asthma, Hx COPD Neurological Medical History: Denies: Hx Seizures Endocrine Medical History: Reports: Hx Diabetes Mellitus Type 1 - Insulin- dependent, metformin, lantus, and novalog. Denies: Hx Hyperthyroidism, Hx Hypothyroidism Renal/ Medical History: Reports: Hx Kidney Stones, Hx Ovarian Cysts. Denies: Hx Peritoneal Dialysis GI Medical History: Reports: Hx Gastroesophageal Reflux Disease. Denies: Hx Cirrhosis, Hx Hepatitis Musculoskeltal Medical History: Denies Hx Arthritis, Reports Hx Musculoskeletal Deformity, Reports Hx Musculoskeletal Trauma Skin Medical History: Denies Hx Eczema, Denies Hx Psoriasis Psychiatric Medical History: Reports: Hx Anxiety Denies: Hx Depression Infectious Medical History: Denies: Hx Hepatitis Past Surgical History: Reports: Hx Cholecystectomy, Hx Oral Surgery - Dental surgery, Hx Tubal Ligation, Other - Incision and drainage of multiple perirectal abscesses - Immunizations Hx Diphtheria, Pertussis, Tetanus Vaccination: Yes - 2016 Review of Systems - Review of Systems Notes: My Normal Review Basic REVIEW OF SYSTEMS: RESPIRATORY: Denies cough, cold, or chest congestion. Denies shortness of breath, difficulty breathing, or wheezing. GASTROINTESTINAL: Denies abdominal pain. Denies nausea, vomiting, or diarrhea. Rectal: Pain in rectal area. GENITOURINARY: Denies difficulty urinating, painful urination, burning, frequency, or blood in urine. MUSCULOSKELETAL: Denies neck or back pain or joint pain or swelling. SKIN: Denies rash or skin lesions. NEUROLOGICAL: Denies altered mental status or loss of consciousness. ALL OTHER SYSTEMS REVIEWED AND NEGATIVE. Physical Exam - Vital signs Vitals: Temp Pulse Resp BP Pulse Ox 98.2 F 105 H 16 113/67 99 12/23/16 20:57 12/23/16 20:57 12/23/16 20:57 12/23/16 20:57 12/23/16 20:57 - Notes Notes: General Appearance: Well nourished, alert, cooperative, no acute distress, mild to moderate obvious discomfort. Well-appearing. Vitals: reviewed, See vital signs table. Lungs: No wheezing, No rales, No rhonci, No accessory muscle use, good air exchange bilaterally. Heart: Normal rate, Regular rythm, No murmur, no rub Abdomen: Normal BS, soft, No rigidity, No abdominal tenderness, No guarding, no rebound, no abdominal masses, no organomegaly Rectal: Patient has a large amount of skin irritation in the rectal area consistent with a yeast type infection. Patient does have a very small approximately 1-2 cm in diameter that is adjacent to the recent incision from the previous I&D. This area is tender to touch. There is no associated fluctuation. Extremities: strength 5/5 in all extremities, good pulses in all extremities, no swelling or tenderness in the extremities, no edema. Skin: warm, dry, appropriate color, no rash Neuro: speech clear, oriented x 3, normal affect, responds appropriately to questions. Course - Re-evaluation Re-evalutation: 12/24/16 03:02 I was initially going to try to aspirate the small area of induration because it is so small and I was not convinced there is actually purulence in this area. I suspect this may be some underlying scar tissue. Patient would not allow me to do this requested I did speak with the surgeon. I did call the surgeon library sales consultant, Dr. Garnett, who did come evaluate the patient. He agrees that he would not incise this area. He thinks that a lot of the patient's recurrent abscesses most likely is related to the significant amount of yeast infection that she has over the rectal perineal area. We will treat her with Diflucan as well as clotrimazole cream and also have her alternate this with zinc oxide cream. Dr. Garnett also recommends that the patient have a colonoscopy and recommends that we refer her to GI. I have put this referral placed. I did explain this to the patient. Also explained to her that she needs to return to ER immediately if she has increasing areas of induration, any areas of fluctuance, fevers, or if she has any further concerns. Patient agrees with plan and will be discharged home. Dictation of this chart was performed using voice recognition software; therefore, there may be some unintended grammatical errors. - Vital Signs Vital signs: Temp Pulse Resp BP Pulse Ox 98.2 F 105 H 16 113/67 99 12/23/16 20:57 12/23/16 20:57 12/23/16 20:57 12/23/16 20:57 12/23/16 20:57 - Laboratory Result Diagrams: 12/23/16 22:15 12/23/16 22:15 Laboratory results interpreted by me: 12/23/16 12/23/16 12/24/16 22:15 22:20 02:38 Creatinine 0.48 L Glucose 305 H POC Glucose 157 H Urine Glucose (UA) >=500 H Urine Blood SMALL H Ur Leukocyte Esterase SMALL H Discharge - Discharge Clinical Impression: Perianal candidiasis Condition: Good Disposition: HOME, SELF-CARE Additional Instructions: Please apply the Clotrimazole cream twice a day and alternate with a over the counter Zinc Oxide cream. This will help allow the tissue around your rectum to heal. Dr. Garnett requests that you follow up with a GI doctor to have a colonoscopy performed. I will give you the number to two different GI doctors( Dr. Gooden and Dr. Manzanares). Please make an appointment to see one of them to arrange a colonoscopy. Return to the ER imemdiately if you have worsneing irritation, fevers, or feel that you are having increasing swelling around the rectal area. Prescriptions: Clotrimazole [Antifungal] 113 gm TP ASDIR PRN #1 cream..g. PRN Reason: Fluconazole [Diflucan] 150 mg PO ONCE PRN #1 tablet PRN Reason: Forms: Return to Work Referrals: DENVER STAFFORD PA-C [Primary Care Provider] - Follow up in 3-5 days LONNIE MANZANARES MD [ACTIVE STAFF] - Follow up in 3-5 days MARY GOODEN MD [ACTIVE STAFF] - Follow up in 3-5 days
[2016-12-24 03:37] VITALS: BP 128/74
--- NOTE | 2016-12-24 06:58 | CONSULTATION REPORT E ---
Consultation Report NAME: FRIDA ALMANZA : 1990 AGE: 26Y DATE: 12/23/2016 TO: HARRIETT PASCUAL M.D. FROM: Cortes MEJIA, Requesting Physician The patient is seen at the request of Dr. Darrius Rogers. CHIEF COMPLAINT: Perianal abscess. REPORT OF CONSULTATION: Patient is a 26-year-old, white female who presents in the emergency department via ground rescue. She has been in the emergency department every week for the past year, complaining of a variety of problems including uncontrolled diabetes and perirectal abscess. The patient has undergone 4 previous perianal abscess, drainage procedures, 3 in the past 5 months including August by Dr. Rosenthal, November by Dr. Krishnan and December by Dr. Krishnan. Each of these drainage procedures were in the left perianal region with 1 or 2 abscesses drained, with no evidence of [id number] identified. Patient has never undergone a colonoscopy that can be demonstrated in the record. She presents back to the emergency department today 10 days after her previous admission for drainage procedure. She reports her blood sugars have been out of control. In the emergency department, her blood sugar was over 300. She is complaining of pain. PAST MEDICAL HISTORY: Significant for diabetes mellitus, insulin-dependent. PAST SURGICAL HISTORY: Includes cholecystectomy, tubal ligation and drainage of abscess. MEDICATIONS: INCLUDE METFORMIN, NYSTATIN CREAM AND ASPART. ALLERGIES: Include ASPIRIN, IBUPROFEN, TRAMADOL and TORADOL. FAMILY HISTORY: Noncontributory. SOCIAL HISTORY: Patient smokes every day and rare uses alcohol. Local medical doctor none stated. REVIEW OF SYSTEMS: As per HPI. CONSTITUTIONAL: Patient denies. GASTROINTESTINAL: As per HPI. NEUROLOGIC: Patient denies. PHYSICAL EXAM: GENERAL: The patient was examined in the emergency department. She is in moderate distress. VITAL SIGNS: Vital signs are stable. HEAD AND EYES: Without icterus. Glasses on. Oropharynx: Mucous membranes are dry. NECK: No adenopathy. LUNGS: Diminished at bases bilaterally. HEART: Without murmur or gallop. ABDOMEN: Soft. RECTAL: Perineum examined. It is a raw covering of large perianal area, extending to her perineum and going towards the labia majora. There are even some pustules. There is evidence of open wound consistent with tender in this area, but tender in the perineal area in general as well. I do not see any new fluctuant area that needs immediate decompression. LABORATORY PROFILE: Pending. IMPRESSION: 1. Persistent, recurrent perineal sepsis, chronic, likely exacerbated by poorly controlled diabetes, status post multiple drainage procedures in the left lateral position; no indication for surgical drainage at this time. 2. Smoker. 3. A noncompliant diabetic. RECOMMENDATIONS: 1. Patient needs better hygiene and control of excoriated perineum. She may need a stool bulking agent; we recommended triamcinolone cream or even zinc oxide. 2. I have recommended Balneol washing solution, and use of soft non-irritating wipes. 3. Suggested she undergo colonoscopic evaluation to rule out proximal colorectal disease such as Crohn's. The above discussed with Dr. Darrius Rogers, emergency room physician. DICTATING PHYSICIAN: HARRIETT PASCUAL M.D. [id number] PHY#: [id number] ID: [id number] JOB#: [id number] ACCT: [id number] cc:HARRIETT PASCUAL M.D. >
== END 2016-12-24 03:37 | disposition home or self-care (01) ==
LOC: ER 20:43
DX: B37.89 Other sites of candidiasis (principal); Z98.890 Other specified postprocedural states; E10.9 Type 1 diabetes mellitus without complications; Z88.6 Allergy status to analgesic agent; Z88.5 Allergy status to narcotic agent; Z88.8 Allergy status to other drugs, medicaments and biological substances
CPT/HCPCS: 99283; 96374; 36415; 82962; 85025; 85610; 81025; 80053; 81001; J1170; J3490

== ENCOUNTER 2017-02-09 11:35 | Emergency (ER) | payer MEDICAID ==
[2017-02-09 11:41] VITALS: BP 130/67
[2017-02-09] MEDS ORDERED: SULFAMETHOXAZOLE/TRIMETHOPRIM 800-160 MG TABLET PO ONE (12:37)
[2017-02-09] MEDS ORDERED: HYDROCODONE/ACETAMINOPHEN 5-325 MG TABLET PO ONE (12:37)
--- NOTE | 2017-02-09 12:40 | ER Document Report ---
HPI - HPI Patient complains to provider of: facial abscess Onset: Last week Onset/Duration: Gradual Quality of pain: Achy Pain Level: 4 Context: Patient complains of abscess to the left side of her face for the past week. Patient states she has been trying to squeeze the lesion but has not had any drainage. Patient does report a history of abscesses in the past that have required surgical incision and drainage. Associated Symptoms: Other - Facial abscess. denies: Fever Exacerbated by: Denies Relieved by: Denies Similar symptoms previously: Yes Recently seen / treated by doctor: No - ROS ROS below otherwise negative: Yes Systems Reviewed and Negative: Yes All other systems reviewed and negative - CONSTITUTIONAL Constitutional: DENIES: Fever, Chills - NEURO Neurology: DENIES: Weakness - GASTROINTESTINAL Gastrointestinal: DENIES: Nausea, Patient vomiting - REPRODUCTIVE Reproductive: DENIES: : - DERM Notes: Facial abscess Past Medical History - General Information source: Patient - Social History Smoking Status: Current Every Day Smoker Smoking Education Provided: Yes Frequency of alcohol use: None Drug Abuse: None Occupation: None Lives with: Family Family History: Reviewed & Not Pertinent, Malignancy, Thyroid Disfunction - Thyroid cancer - Past Medical History Cardiac Medical History: Denies: Hx Congestive Heart Failure, Hx DVT, Hx Heart Attack, Hx Hypercholesterolemia, Hx Hypertension, Hx Pulmonary Embolism Pulmonary Medical History: Denies: Hx Asthma, Hx COPD Neurological Medical History: Denies: Hx Seizures Endocrine Medical History: Reports: Hx Diabetes Mellitus Type 1 - Insulin- dependent, metformin, lantus, and novalog. Denies: Hx Hyperthyroidism, Hx Hypothyroidism Renal/ Medical History: Reports: Hx Kidney Stones, Hx Ovarian Cysts. Denies: Hx Peritoneal Dialysis GI Medical History: Reports: Hx Gastroesophageal Reflux Disease. Denies: Hx Cirrhosis, Hx Hepatitis Musculoskeltal Medical History: Denies Hx Arthritis, Reports Hx Musculoskeletal Deformity, Reports Hx Musculoskeletal Trauma Skin Medical History: Denies Hx Eczema, Denies Hx Psoriasis Psychiatric Medical History: Reports: Hx Anxiety Denies: Hx Depression Infectious Medical History: Denies: Hx Hepatitis Past Surgical History: Reports: Hx Cholecystectomy, Hx Oral Surgery - Dental surgery, Hx Tubal Ligation, Other - Incision and drainage of multiple perirectal abscesses - Immunizations Hx Diphtheria, Pertussis, Tetanus Vaccination: Yes - 2016 [facility] Provider Document - CONSTITUTIONAL Agree With Documented VS: Yes Exam Limitations: No Limitations - INFECTION CONTROL TRAVEL OUTSIDE OF THE [place] IN LAST 30 DAYS: No - HEENT HEENT: Atraumatic, Normocephalic - NECK Neck: Normal Inspection, Supple - RESPIRATORY Respiratory: Breath Sounds Normal, No Respiratory Distress O2 Sat by Pulse Oximetry: 100 - CARDIOVASCULAR Cardiovascular: Regular Rate, Regular Rhythm - MUSCULOSKELETAL/EXTREMETIES Musculoskeletal/Extremeties: MAEW - NEURO Level of Consciousness: Awake, Alert, Appropriate Motor/Sensory: No Motor Deficit - DERM Integumentary: Warm, Dry, Abscess - left maxillary area, area of fluctuance with central pustular lesion Course - Vital Signs Vital signs: Temp Pulse Resp BP Pulse Ox 99.5 F 93 20 130/67 H 100 02/09/17 11:39 02/09/17 11:39 02/09/17 11:39 02/09/17 11:39 02/09/17 11:39 Procedures - Incision and Drainage Left Face Type: Simple Anesthetic type: 1% Lidocaine Blade size: 11 I&D procedure: Betadine prep applied Incision Method: Incision made by scalpel Amount/type of drainage: large amount of purulent drainage Adult Head Front/Back picture: 1 - abscess Discharge - Discharge Clinical Impression: Facial abscess Condition: Stable Disposition: HOME, SELF-CARE Instructions: Abscess ([facility]), Oral Narcotic Medication ([facility]), Post Incision and Drainage, Trimethoprim-Sulfa ([facility]) Additional Instructions: Return immediately for any new or worsening symptoms Followup with your primary care provider, call tomorrow to make a followup appointment Follow-up with a plastic surgeon for a recheck Prescriptions: Cephalexin Monohydrate [Keflex 500 mg Capsule] 500 mg PO Q6H 5 Days capsule Hydrocodone/Acetaminophen [[place] 5-325 Tablet] 1 each PO Q4 PRN #12 tablet PRN Reason: Mupirocin [Bactroban 2% Ointment 22 gm] 1 applic TP TID #22 gm Sulfamethoxazole/Trimethoprim [Bactrim Ds Tablet] 1 each PO BID #20 tablet Forms: Smoking Cessation Education Referrals: DENVER STAFFORD PA-C [Primary Care Provider] - Follow up as needed ERVIN MCDOWELL MD [ACTIVE STAFF] - Follow up as needed
== END 2017-02-09 14:15 | disposition home or self-care (01) ==
LOC: ER 11:35
PROC: 0H91XZZ Drainage of Face Skin, External Approach (ICD-10-PCS; principal; 2017-02-09)
DX: L02.01 Cutaneous abscess of face (principal); F17.210 Nicotine dependence, cigarettes, uncomplicated
CPT/HCPCS: 99283; 10060; J3490

== ENCOUNTER 2017-02-27 20:21 | Emergency (ER) | payer MEDICAID ==
[2017-02-27] MEDS ORDERED: BUPIVACAINE HCL 0.5 % INJ/PF 30 ML SDV INJ ONE (20:58)
--- NOTE | 2017-02-27 21:03 | ER Document Report ---
ED Oral Problem - General Chief Complaint: Mouth Problem Stated Complaint: MOUTH PAIN Time Seen by Provider: 02/27/17 20:53 Mode of Arrival: Ambulatory Information source: Patient Notes: Patient is a 26-year-old female comes emergency room complaining of a dry socket. Patient states she had all of her teeth pulled last and she started having symptoms of dry socket on the front right area 2 days ago. She states she is call the oral surgeon but they have not called her back and the pain is too much. She denies any other symptoms at this time. She is currently taking amoxicillin for the infection or to keep the infection rate down. TRAVEL OUTSIDE OF THE [place] IN LAST 30 DAYS: No - HPI Patient complains to provider of: Jaw pain Onset: Other - Today's Onset: Gradual Quality of pain: Throbbing Severity: Moderate Pain Level: 3 Context: Recent dental extractions, Other - Dental extractions total mouth Swollen jaw/face: Mild Associated symptoms: Other - Dental socket were to previously was located Worsened by: Heat Similar symptoms previously: No Recently seen / treated by doctor/dentist: Yes - Related Data Allergies/Adverse Reactions: aspirin Allergy (Mild, Verified 11/15/16 12:55) Hives ibuprofen Allergy (Mild, Verified 11/15/16 12:55) Hives tramadol Allergy (Mild, Verified 11/15/16 12:55) Hives ketorolac [From Toradol] Allergy (Verified 11/15/16 12:55) Past Medical History - General Information source: Patient - Social History Smoking Status: Current Every Day Smoker Cigarette use (# per day): Yes - 1 pack a day Chew tobacco use (# tins/day): No Smoking Education Provided: Yes Frequency of alcohol use: None Drug Abuse: None Family History: Reviewed & Not Pertinent, Malignancy, Thyroid Disfunction - Thyroid cancer Patient has suicidal ideation: No Patient has homicidal ideation: No - Past Medical History Cardiac Medical History: Denies: Hx Congestive Heart Failure, Hx DVT, Hx Heart Attack, Hx Hypercholesterolemia, Hx Hypertension, Hx Pulmonary Embolism Pulmonary Medical History: Denies: Hx Asthma, Hx COPD Neurological Medical History: Denies: Hx Seizures Endocrine Medical History: Reports: Hx Diabetes Mellitus Type 1 - Insulin- dependent, metformin, lantus, and novalog. Denies: Hx Hyperthyroidism, Hx Hypothyroidism Renal/ Medical History: Reports: Hx Kidney Stones, Hx Ovarian Cysts. Denies: Hx Peritoneal Dialysis GI Medical History: Reports: Hx Gastroesophageal Reflux Disease. Denies: Hx Cirrhosis, Hx Hepatitis Musculoskeltal Medical History: Denies Hx Arthritis, Reports Hx Musculoskeletal Deformity, Reports Hx Musculoskeletal Trauma Skin Medical History: Denies Hx Eczema, Denies Hx Psoriasis Psychiatric Medical History: Reports: Hx Anxiety Denies: Hx Depression Infectious Medical History: Denies: Hx Hepatitis Past Surgical History: Reports: Hx Cholecystectomy, Hx Oral Surgery - Dental surgery, Hx Tubal Ligation, Other - Incision and drainage of multiple perirectal abscesses - Immunizations Hx Diphtheria, Pertussis, Tetanus Vaccination: Yes - 2016 Review of Systems - Review of Systems Constitutional: No symptoms reported EENT: Dental problem Cardiovascular: No symptoms reported Respiratory: No symptoms reported Gastrointestinal: No symptoms reported Genitourinary: No symptoms reported Female Genitourinary: No symptoms reported Musculoskeletal: No symptoms reported Skin: No symptoms reported Hematologic/Lymphatic: No symptoms reported Neurological/Psychological: No symptoms reported -: Yes All other systems reviewed and negative Physical Exam - Vital signs Vitals: Temp Pulse Resp BP Pulse Ox 98.6 F 77 16 131/98 H 98 02/27/17 20:30 02/27/17 20:30 02/27/17 20:30 02/27/17 20:30 02/27/17 20:30 Interpretation: Hypertensive - General General appearance: Other - Appears uncomfortable In distress: None - HEENT Head: Normocephalic, Atraumatic Eyes: Normal Tympanic membrane: Normal. No: Bulging, Hemotympanum, Injected, Loss of landmarks, Perforation, Purulent effusion, Retracted, Serous effusion, Other Sinus: Normal. No: Abnormal, Frontal, Mastoid, Maxillary, Redness, Swelling, Tenderness, Other Nasal: Normal. No: Bloody discharge, Lady deformity, Ecchymosis, Epistaxis, Purulent discharge, Septal hematoma, Swelling, Clear rhinorrhea, Other Mouth/Lips: Normal Mucous membranes: Moist Teeth diagram: 1 - All teeth pulled. The two front right lower have been extracted and there appears to be swelling around the gum area. There is also ar 2 points where the sutures have oprnrd slightly and there is what appears to be white material which goes along with dry socket. Pharynx: Normal. No: Blood in hypopharynx, Erythema, Exudate, Peritonsillar abscess, Post nasal drainage, Retropharyngeal abscess, Tonsillar hypertrophy, Uvular edema, Potential airway comprom., Other Neck: Normal. No: Anterior cervical chain, Posterior cervical chain, Brudzinski , Carotid bruit, Kernig's, Lymphadenopathy, Meningismus, Neck mass, Shotty nodes , Subcutaneous emphysema, Supple, Thyroid nodule, Thyromegally, Other - Respiratory Respiratory status: No respiratory distress Chest status: Nontender Breath sounds: Normal Chest palpation: Normal - Cardiovascular Rhythm: Regular Heart sounds: Normal auscultation Murmur: No - Skin Skin Temperature: Warm Skin Moisture: Dry Skin Color: Normal, [place] Course - Vital Signs Vital signs: Temp Pulse Resp BP Pulse Ox 98.6 F 83 18 146/89 H 97 02/27/17 20:30 02/27/17 21:48 02/27/17 21:48 02/27/17 21:48 02/27/17 21:48 - Transfer of Care Notes: 02/27/17 21:35 I discussed dry socket with Dr. Neal he has instructed me to use a dental block with Marcaine and also give patient gabapentin 600 mg for pain. And she can follow-up with a dentist in the morning. 02/27/17 21:36 I was unable to document my dental block on the procedure side so I did a dental block with 1.5 mL's of 2.5 Marcaine into the right frontal area of the teeth it is on the right side of the frenulum where the 2 front teeth used to be. Patient tolerated the block without a problem she got moderate relief and no complications. Discharge - Discharge Clinical Impression: Dry tooth socket Condition: Good Disposition: HOME, SELF-CARE Additional Instructions: Home. Continue your amoxicillin as prescribed by the oral surgeon. He may continue to take ibuprofen 800 mg 3 times a day with food. Also he may take the gabapentin 600 mg at night for sleep. I have given you a couple of days of this so that he may have some relief. But she will however should contact your surgeon first thing in the morning. Return to ER if he spike a fever or have any other concerns. Prescriptions: Gabapentin 600 mg PO ASDIR PRN #10 capsule PRN Reason: Forms: Elevated Blood Pressure Referrals: DENVER STAFFORD PA-C [Primary Care Provider] - Follow up as needed
[2017-02-27] MEDS ORDERED: GABAPENTIN 300 MG CAPSULE PO ONE (21:44)
[2017-02-27 21:49] VITALS: BP 146/89
== END 2017-02-27 21:58 | disposition home or self-care (01) ==
LOC: ER 20:21
DX: M27.3 Alveolitis of jaws (principal); K08.109 Complete loss of teeth, unspecified cause, unspecified class; E10.9 Type 1 diabetes mellitus without complications; F17.210 Nicotine dependence, cigarettes, uncomplicated; Z71.6 Tobacco abuse counseling; Z88.6 Allergy status to analgesic agent; Z88.5 Allergy status to narcotic agent
CPT/HCPCS: 99282; 64400; J3490

== ENCOUNTER 2017-03-19 12:02 | Emergency (ER) | payer MEDICAID ==
--- NOTE | 2017-03-19 13:34 | ER Document Report ---
HPI - HPI Pain Level: 5 Context: 26 yo female c/o pain and swelling to right face x several days. pt had recent dental extractions (all her teeth pulled out). pt unable to see oral surgeon until next week. Associated Symptoms: None Exacerbated by: Food Relieved by: Denies Similar symptoms previously: Yes Recently seen / treated by doctor: Yes - last seen in ED 02/27 - ROS Systems Reviewed and Negative: Yes All other systems reviewed and negative - REPRODUCTIVE LMP: 03/13/17 Reproductive: DENIES: : Past Medical History - General Information source: Patient - Social History Smoking Status: Current Every Day Smoker Chew tobacco use (# tins/day): No Frequency of alcohol use: Occasional Drug Abuse: None Family History: Reviewed & Not Pertinent, Malignancy, Thyroid Disfunction - Thyroid cancer Patient has suicidal ideation: No Patient has homicidal ideation: No - Past Medical History Cardiac Medical History: Denies: Hx Congestive Heart Failure, Hx DVT, Hx Heart Attack, Hx Hypercholesterolemia, Hx Hypertension, Hx Pulmonary Embolism Pulmonary Medical History: Denies: Hx Asthma, Hx COPD Neurological Medical History: Denies: Hx Seizures Endocrine Medical History: Reports: Hx Diabetes Mellitus Type 1 - Insulin- dependent, metformin, lantus, and novalog. Denies: Hx Hyperthyroidism, Hx Hypothyroidism Renal/ Medical History: Reports: Hx Kidney Stones, Hx Ovarian Cysts. Denies: Hx Peritoneal Dialysis GI Medical History: Reports: Hx Gastroesophageal Reflux Disease. Denies: Hx Cirrhosis, Hx Hepatitis Musculoskeltal Medical History: Denies Hx Arthritis, Reports Hx Musculoskeletal Deformity, Reports Hx Musculoskeletal Trauma Skin Medical History: Denies Hx Eczema, Denies Hx Psoriasis Psychiatric Medical History: Reports: Hx Anxiety Denies: Hx Depression Infectious Medical History: Denies: Hx Hepatitis Past Surgical History: Reports: Hx Cholecystectomy, Hx Oral Surgery - Dental surgery, Hx Tubal Ligation, Other - Incision and drainage of multiple perirectal abscesses - Immunizations Hx Diphtheria, Pertussis, Tetanus Vaccination: Yes - 2016 Vertical Provider Document - CONSTITUTIONAL Agree With Documented VS: Yes - INFECTION CONTROL TRAVEL OUTSIDE OF THE [place] IN LAST 30 DAYS: No - HEENT Notes: extractions sites inflamed. general gingival edema. + swelling to right malar face - NECK Neck: Normal Inspection, Supple - RESPIRATORY O2 Sat by Pulse Oximetry: 97 - DERM Integumentary: Warm, Dry Course - Vital Signs Vital signs: Temp Pulse Resp BP Pulse Ox 97.8 F 106 H 16 133/75 H 97 03/19/17 12:19 03/19/17 12:19 03/19/17 12:19 03/19/17 12:19 03/19/17 12:19 Discharge - Discharge Clinical Impression: Facial pain, Facial swelling, Pain, dental Condition: Stable Disposition: HOME, SELF-CARE Instructions: Clindamycin ([facility]), Oral Narcotic Medication ([facility]), Toothache ([facility] ) Additional Instructions: take antibiotic as prescribed moist heat to face follow up with oral surgeon tomorrow Prescriptions: Clindamycin HCl 300 mg PO TID #30 capsule Hydrocodone/Acetaminophen [[place] 5-325 Tablet] 1 tab PO Q4H PRN #12 tab PRN Reason: Referrals: DENVER SATFFORD PA-C [Primary Care Provider] - Follow up as needed
[2017-03-19] MEDS ORDERED: HYDROCODONE/ACETAMINOPHEN 5-325 MG TABLET PO ONE (13:36)
[2017-03-19] MEDS ORDERED: CLINDAMYCIN HCL 150 MG CAPSULE PO ONE (13:37)
[2017-03-19 13:51] VITALS: BP 132/70
== END 2017-03-19 13:51 | disposition home or self-care (01) ==
LOC: ER 12:02
DX: R51 Headache (principal); K08.89 Other specified disorders of teeth and supporting structures; R22.0 Localized swelling, mass and lump, head; K08.109 Complete loss of teeth, unspecified cause, unspecified class; Z98.890 Other specified postprocedural states; F17.200 Nicotine dependence, unspecified, uncomplicated; E10.9 Type 1 diabetes mellitus without complications
CPT/HCPCS: 99283; J3490

== ENCOUNTER 2017-03-22 18:31 | Emergency (ER) | payer MEDICAID ==
[2017-03-22] MEDS ORDERED: NORMAL SALINE 1000 ML 1,000 ML IV ONE ×2 (19:35→21:06)
--- NOTE | 2017-03-22 19:42 | ER Document Report ---
ED Medical Screen (RME) - General Chief Complaint: High Blood Sugar Stated Complaint: EAR PAIN,NAUSEA Time Seen by Provider: 03/22/17 19:34 Mode of Arrival: Ambulatory Information source: Patient TRAVEL OUTSIDE OF THE [place] IN LAST 30 DAYS: No - HPI Patient complains to provider of: elevated BS Onset: Other - pt. has had recent dental infection and feels like her BS is elevated - Related Data Allergies/Adverse Reactions: aspirin Allergy (Mild, Verified 03/22/17 19:25) Hives ibuprofen Allergy (Mild, Verified 03/22/17 19:25) Hives tramadol Allergy (Mild, Verified 03/22/17 19:25) Hives ketorolac [From Toradol] Allergy (Verified 03/22/17 19:25) Home Medications: Current Home Medications Insulin Aspart [Novolog Insulin (Aspart) 100 unit/mL] 10 units SQ TID 03/22/17 [ History] Insulin Degludec [Tresiba Flextouch U-100] 30 units SQ QHS 03/22/17 [History] Past Medical History - Social History Chew tobacco use (# tins/day): No Frequency of alcohol use: None Drug Abuse: None Family history: Reviewed & Not Pertinent - Past Medical History Cardiac Medical History: Denies: Hx Congestive Heart Failure, Hx DVT, Hx Heart Attack, Hx Hypercholesterolemia, Hx Hypertension, Hx Pulmonary Embolism Pulmonary Medical History: Denies: Hx Asthma, Hx COPD Neurological Medical History: Denies: Hx Seizures Endocrine Medical History: Reports: Hx Diabetes Mellitus Type 1 - Insulin- dependent, metformin, lantus, and novalog. Denies: Hx Hyperthyroidism, Hx Hypothyroidism Renal/ Medical History: Reports: Hx Kidney Stones, Hx Ovarian Cysts. Denies: Hx Peritoneal Dialysis GI Medical History: Reports: Hx Gastroesophageal Reflux Disease. Denies: Hx Cirrhosis, Hx Hepatitis Musculoskeltal Medical History: Denies Hx Arthritis, Reports Hx Musculoskeletal Deformity, Reports Hx Musculoskeletal Trauma Skin Medical History: Denies Hx Eczema, Denies Hx Psoriasis Psychiatric Medical History: Reports: Hx Anxiety Denies: Hx Depression Infectious Medical History: Denies: Hx Hepatitis Past Surgical History: Reports: Hx Cholecystectomy, Hx Oral Surgery - Dental surgery, Hx Tubal Ligation, Other - Incision and drainage of multiple perirectal abscesses - Immunizations Hx Diphtheria, Pertussis, Tetanus Vaccination: Yes - 2016 History of Influenza Vaccine for 12/2016 - 05/2017 Season: No Physical Exam - Vital signs Vitals: Temp Pulse Resp BP Pulse Ox 98.1 F 91 18 112/64 100 03/22/17 19:04 03/22/17 19:04 03/22/17 19:04 03/22/17 19:04 03/22/17 19:04 Course - Vital Signs Vital signs: Temp Pulse Resp BP Pulse Ox 98.1 F 91 18 112/64 100 03/22/17 19:04 03/22/17 19:04 03/22/17 19:04 03/22/17 19:04 03/22/17 19:04
[2017-03-22 20:23] LABS: ABSOLUTE BASOPHILS # (AUTO) 0.1 10^3/uL (0.0-0.2); ABSOLUTE EOSINOPHILS # (AUTO) 0.2 10^3/uL (0.0-0.6); ABSOLUTE LYMPHOCYTES (AUTO) 2.6 10^3/uL (0.5-4.7); ABSOLUTE MONOCYTES (AUTO) 0.5 10^3/uL (0.1-1.4); ABSOLUTE NEUT (AUTO) 5.5 10^3/uL (1.7-8.2); BASOPHILS % (AUTO) 0.8 % (0-2); EOSINOPHILS % (AUTO) 2.1 % (0-6); HEMATOCRIT 43.4 % (36.0-47.0); HEMOGLOBIN 14.7 g/dL (12.0-15.5); MEAN CORPUSCULAR HEMOGLOBIN 30.5 pg (27.0-33.4); MEAN CORPUSCULAR HGB CONC 33.8 g/dL (32.0-36.0); MEAN CORPUSCULAR VOLUME 90 fl (80-97); MONOCYTES % (AUTO) 5.3 % (3-13); PLATELET COUNT 226 10^3/uL (150-450); RED BLOOD COUNT 4.81 10^6/uL (3.72-5.28); RED CELL DISTRIBUTION WIDTH 13.7 % (11.5-14.0); SEGMENTED NEUTROPHILS % (AUTO) 61.8 % (42-78); TOTAL CELLS COUNTED % (AUTO) 100 %; WHITE BLOOD COUNT 8.8 10^3/uL (4.0-10.5)
[2017-03-22 20:50] LABS: ALANINE AMINOTRANSFERASE 20 U/L (9-52); ALBUMIN 4.1 g/dL (3.5-5.0); ALKALINE PHOSPHATASE 84 U/L (38-126); ANION GAP 19 (5-19); ASPARTATE AMINO TRANSFERASE 10 U/L (14-36); BILIRUBIN,DIRECT 0.4 mg/dL (0.0-0.4); BILIRUBIN,TOTAL 0.5 mg/dL (0.2-1.3); BLOOD UREA NITROGEN 6 mg/dL (7-20); CALCIUM 9.8 mg/dL (8.4-10.2); CARBON DIOXIDE 16 mmol/L (22-30); CHLORIDE 103 mmol/L (98-107); GLUCOSE 379 mg/dL (75-110); POTASSIUM 3.8 mmol/L (3.6-5.0); SODIUM 138.3 mmol/L (137-145); TOTAL PROTEIN 6.8 g/dL (6.3-8.2)
--- NOTE | 2017-03-22 21:21 | ER Document Report ---
ED General - General Chief Complaint: High Blood Sugar Stated Complaint: EAR PAIN,NAUSEA Time Seen by Provider: 03/22/17 19:34 Mode of Arrival: Ambulatory TRAVEL OUTSIDE OF THE [place] IN LAST 30 DAYS: No - HPI Notes: Patient is a 26-year-old female with a history of insulin-dependent diabetes mellitus who presents to the ED complaining of left ear pain and fluctuations of her glucose levels. Patient states that her ear has been bothering her for the last 1-2 days. Patient has been taking clindamycin for a small abscess within her mouth that is to be drained by the oral surgeon on Friday. Patient states that she is still eating and drinking without any difficulties. She is urinating normally and having normal bowel movements. Patient does note that she has had nasal congestion and discharge over the last several days, and has not been using any xnxe-ger-dpyuxok meds for her symptoms. Patient states that her sugars have been running in the 3-400s. She has been using her insulin as directed and did take today's dose. No other concerns or complaints at this time. Denies any headache, fever, neck pain, sore throat, chest pain, palpitations, syncope, cough, shortness of breath, wheeze, dyspnea, abdominal pain, nausea(currently)/vomiting/diarrhea, urinary retention, dysuria, hematuria , loss of control of bowel or bladder, numbness/tingling, saddle anesthesia, muscle paralysis/weakness, or rash. - Related Data Allergies/Adverse Reactions: aspirin Allergy (Mild, Verified 03/22/17 19:25) Hives ibuprofen Allergy (Mild, Verified 03/22/17 19:25) Hives tramadol Allergy (Mild, Verified 03/22/17 19:25) Hives ketorolac [From Toradol] Allergy (Verified 03/22/17 19:25) Home Medications: Current Home Medications Insulin Aspart [Novolog Insulin (Aspart) 100 unit/mL] 10 units SQ TID 03/22/17 [ History] Insulin Degludec [Tresiba Flextouch U-100] 30 units SQ QHS 03/22/17 [History] Past Medical History - General Information source: Patient - Social History Smoking Status: Current Every Day Smoker Chew tobacco use (# tins/day): No Frequency of alcohol use: None Drug Abuse: None Family History: Reviewed & Not Pertinent, Malignancy, Thyroid Disfunction - Thyroid cancer Patient has suicidal ideation: No Patient has homicidal ideation: No - Past Medical History Cardiac Medical History: Denies: Hx Congestive Heart Failure, Hx DVT, Hx Heart Attack, Hx Hypercholesterolemia, Hx Hypertension, Hx Pulmonary Embolism Pulmonary Medical History: Denies: Hx Asthma, Hx COPD Neurological Medical History: Denies: Hx Seizures Endocrine Medical History: Reports: Hx Diabetes Mellitus Type 1 - Insulin- dependent, metformin, lantus, and novalog. Denies: Hx Hyperthyroidism, Hx Hypothyroidism Renal/ Medical History: Reports: Hx Kidney Stones, Hx Ovarian Cysts. Denies: Hx Peritoneal Dialysis GI Medical History: Reports: Hx Gastroesophageal Reflux Disease. Denies: Hx Cirrhosis, Hx Hepatitis Musculoskeltal Medical History: Denies Hx Arthritis, Reports Hx Musculoskeletal Deformity, Reports Hx Musculoskeletal Trauma Skin Medical History: Denies Hx Eczema, Denies Hx Psoriasis Psychiatric Medical History: Reports: Hx Anxiety Denies: Hx Depression Infectious Medical History: Denies: Hx Hepatitis Past Surgical History: Reports: Hx Cholecystectomy, Hx Oral Surgery - Dental surgery, Hx Tubal Ligation, Other - Incision and drainage of multiple perirectal abscesses - Immunizations Hx Diphtheria, Pertussis, Tetanus Vaccination: Yes - 2016 Review of Systems - Review of Systems Notes: REVIEW OF SYSTEMS: CONSTITUTIONAL : Denies fever, chills, or sweats. Denies recent illness. EENT: see hpi CARDIOVASCULAR: Denies chest pain. Denies palpitations or racing or irregular heart beat. Denies ankle edema. RESPIRATORY: Denies cough, cold, or chest congestion. Denies shortness of breath, difficulty breathing, or wheezing. GASTROINTESTINAL: Denies abdominal pain or distention. Denies current nausea, vomiting, or diarrhea. Denies blood in vomitus, stools, or per rectum. Denies black, tarry stools. Denies constipation. GENITOURINARY: Denies difficulty urinating, painful urination, burning, frequency, blood in urine, or discharge. MUSCULOSKELETAL: Denies back or neck pain or stiffness. Denies joint pain or swelling. SKIN: Denies rash, lesions or sores. NEUROLOGICAL: Denies confusion or altered mental status. Denies passing out or loss of consciousness. Denies dizziness or lightheadedness. Denies headache. Denies weakness or paralysis or loss of use of either side. Denies problems with gait or speech. Denies sensory loss, numbness, or tingling. Denies seizures. ALL OTHER SYSTEMS REVIEWED AND NEGATIVE. Dictation was performed using [employer] voice recognition software Physical Exam - Vital signs Vitals: Temp Pulse Resp BP Pulse Ox 98.1 F 91 18 112/64 100 03/22/17 19:04 03/22/17 19:04 03/22/17 19:04 03/22/17 19:04 03/22/17 19:04 Notes: PHYSICAL EXAMINATION: GENERAL: Well-appearing, well-nourished and in no acute distress. A&Ox4 HEAD: Atraumatic, normocephalic. EYES: Pupils equal round and reactive to light, extraocular movements intact, sclera anicteric, conjunctiva are normal. ENT: EAC clear b/l. Lt TM is has mild bulge and fluid. Rt TM wnl. Nares patent and with clear discharge. oropharynx mild erythema without exudates. 1 + tonsilar hypertrophy without erythema or exudate. No palatine shift. Uvula midline. No tongue protrusion. No drooling, hoarseness, or airway compromise. Moist mucous membranes. No sinus tenderness. NECK: Normal range of motion, supple without lymphadenopathy. No rigidity/ meningismus. LUNGS: Breath sounds clear to auscultation bilaterally and equal. No wheezes rales or rhonchi. HEART: Regular rate and rhythm without murmurs, rubs, gallops. ABDOMEN: Soft, nontender, nondistended abdomen. No guarding, no rebound. No masses appreciated. Normal bowel sounds present. No CVA tenderness bilaterally. Ext: no pitting edema b/l. NEUROLOGICAL: Normal speech, normal gait. Normal sensory, motor exams PSYCH: Normal mood, normal affect. SKIN: Warm, Dry, normal turgor, no rashes or lesions noted. Course - Re-evaluation Re-evalutation: 03/22/17 22:45 Patient is an afebrile, well-hydrated, 26-year-old female who presents the ED with an elevated blood glucose level as well as serous otitis media, suspect secondary to fluid buildup and URI, but suspect that it is not bacterial at this time. Patient is currently taking clindamycin. Vitals are stable. PE is otherwise unremarkable. Patient is tolerating p.o. without any difficulties. Patient was given 2 L saline bolus and resulted in down trending of her glucose. Pt has had repeated visits for elevated glucose. CBC, CMP, venous blood gas are unremarkable for any acute pathology at this time. Low suspicion for any severe dehydration, sepsis, meningitis, DKA, or other systemic emergent condition at this time. Patient is aware that her condition can change from initial presentation and she needs to monitor symptoms closely and seek medical attention for any acute changes. Continue insulin at home. Recommend conservative measures for symptoms. Recheck with your PCM in 3-5 days. Keep consult with your Oral surgeon. Return to the ED with any worsening/concerning symptoms otherwise as reviewed in discharge. Patient is in agreement. - Vital Signs Vital signs: Temp Pulse Resp BP Pulse Ox 98.1 F 91 18 112/64 100 03/22/17 19:04 03/22/17 19:04 03/22/17 19:04 03/22/17 19:04 03/22/17 19:04 - Laboratory Result Diagrams: 03/22/17 19:50 03/22/17 19:50 Laboratory results interpreted by me: 03/22/17 03/22/17 19:50 21:27 VBG HCO3 19.0 L Carbon Dioxide 16 L BUN 6 L Glucose 379 H AST 10 L Discharge - Discharge Clinical Impression: Blood glucose elevated Serous otitis media Qualifiers: Chronicity: acute Laterality: left Recurrence: not specified as recurrent Qualified Code(s): H65.02 - Acute serous otitis media, left ear Condition: Stable Disposition: HOME, SELF-CARE Instructions: Serous Otitis Media ([facility]) Additional Instructions: Maintain adequate fluid intake Take meds as directed--use at-home insulin regularly and monitor glucose levels closely Healthy diet, low carb/sugar tylenol as needed over the counter cold medication as needed for symptoms keep consult with your oral surgeon F/u: with your PCM in 3-5 days for a recheck Return to the ED with any fever, worsening pain, chest pain, palpitations, syncope, worsening ROSAS, neck pain/stiffness, shortness of breath, wheezing, drooling, trouble swallowing/breathing, abdominal pain, n/v/d, rash, or worsening/concerning symptoms otherwise. Referrals: BRANDON JAVIER MD [NO LOCAL MD] - Follow up as needed
[2017-03-22 21:36] LABS: VENOUS BLOOD BASE EXCESS -6.9 mmol/L; VENOUS BLOOD PCO2 39.6 mmHg (35-63); VENOUS BLOOD PH 7.3 (7.30-7.42)
[2017-03-22 23:16] VITALS: BP 104/57
== END 2017-03-22 23:16 | disposition home or self-care (01) ==
LOC: ER 18:31
DX: H65.02 Acute serous otitis media, left ear (principal); E10.65 Type 1 diabetes mellitus with hyperglycemia; F17.200 Nicotine dependence, unspecified, uncomplicated; Z79.4 Long term (current) use of insulin; Z79.84 Long term (current) use of oral hypoglycemic drugs; Z87.442 Personal history of urinary calculi; Z90.49 Acquired absence of other specified parts of digestive tract; Z98.51 Tubal ligation status
CPT/HCPCS: 99285; 36415; 82962; 85025; 80053; 82803; J7030

== ENCOUNTER 2017-04-08 20:28 | Emergency (ER) | payer MEDICAID ==
[2017-04-08 20:35] VITALS: BP 124/78
== END 2017-04-08 22:30 | disposition left against medical advice (07) ==
LOC: ER 20:28
DX: Z53.21 Procedure and treatment not carried out due to patient leaving prior to being seen by health care provider (principal)

== ENCOUNTER 2017-04-16 18:13 | Emergency (ER) | payer MEDICAID ==
[2017-04-16 19:51] LABS: APPEARANCE,URINE SLIGHTLY-CLOUDY; BILIRUBIN,URINE NEGATIVE (NEGATIVE); COLOR,URINE STRAW; GLUCOSE, URINE >=500 mg/dL (NEGATIVE); KETONES,URINE 80 mg/dL (NEGATIVE); LEUKOCYTE ESTERASE,URINE NEGATIVE (NEGATIVE); NITRITE,URINE NEGATIVE (NEGATIVE); PROTEIN,URINE NEGATIVE (NEGATIVE); URINE SPECIFIC GRAVITY 1.033; UROBILINOGEN,URINE NEGATIVE mg/dL (<2.0)
[2017-04-16] MEDS ORDERED: LIDOCAINE 1%/EPINEPHRINE INJ 20 ML VIAL INJ ONE (22:27)
[2017-04-16] MEDS: NORMAL SALINE 1000 ML 1,000 ML IV PRN ×2 (22:46→22:47)
[2017-04-16 23:07] LABS: ABSOLUTE EOSINOPHILS # (AUTO) 0.2 10^3/uL (0.0-0.6); ABSOLUTE LYMPHOCYTES (AUTO) 2.5 10^3/uL (0.5-4.7); ABSOLUTE MONOCYTES (AUTO) 0.5 10^3/uL (0.1-1.4); BASOPHILS % (AUTO) 0.7 % (0-2); HEMATOCRIT 42.6 % (36.0-47.0); HEMOGLOBIN 14.6 g/dL (12.0-15.5); LYMPHOCYTES % (AUTO) 40.9 % (13-45); MEAN CORPUSCULAR HEMOGLOBIN 31.2 pg (27.0-33.4); MEAN CORPUSCULAR HGB CONC 34.4 g/dL (32.0-36.0); MEAN CORPUSCULAR VOLUME 91 fl (80-97); MONOCYTES % (AUTO) 7.9 % (3-13); PLATELET COUNT 206 10^3/uL (150-450); RED BLOOD COUNT 4.69 10^6/uL (3.72-5.28); RED CELL DISTRIBUTION WIDTH 14.3 % (11.5-14.0); SEGMENTED NEUTROPHILS % (AUTO) 47.5 % (42-78); TOTAL CELLS COUNTED % (AUTO) 100 %; WHITE BLOOD COUNT 6.2 10^3/uL (4.0-10.5)
[2017-04-16 23:22] LABS: ANION GAP 15 (5-19); BLOOD UREA NITROGEN 7 mg/dL (7-20); CALCIUM 9.7 mg/dL (8.4-10.2); CARBON DIOXIDE 17 mmol/L (22-30); CHLORIDE 106 mmol/L (98-107); GLUCOSE 264 mg/dL (75-110); SODIUM 137.9 mmol/L (137-145)
[2017-04-16] MEDS ORDERED: HYDROCODONE/ACETAMINOPHEN 5-325 MG (6 TAB/ER DISP) PO PRN (23:57)
--- NOTE | 2017-04-17 00:03 | ER Document Report ---
ED General - General Chief Complaint: Abscess Stated Complaint: VAGINAL DISCOMFORT Time Seen by Provider: 04/16/17 22:03 Notes: Patient is a 26-year-old type I diabetic female presents with complaints of a Bartholin's gland cyst over the right vaginal labia. She also has an ongoing yeast infection for which she is receiving treatment with Diflucan. She denies any fevers. She says because of the the cysts her blood sugars also been running high. She also admits she has not been eating or drinking well. She did take insulin prior to coming to the ER because her sugar was high at home. She does not feel that she is in DKA she says she has been in DKA before and does not feel like that. She says she has multiple Bartholin's gland cyst and abscesses in the past. She is in follow-up with gynecology to discuss possible marsupialization. TRAVEL OUTSIDE OF THE [place] IN LAST 30 DAYS: No - Related Data Allergies/Adverse Reactions: aspirin Allergy (Mild, Verified 04/16/17 18:14) Hives ibuprofen Allergy (Mild, Verified 04/16/17 18:14) Hives tramadol Allergy (Mild, Verified 04/16/17 18:14) Hives ketorolac [From Toradol] Allergy (Verified 04/16/17 18:14) Past Medical History - Social History Smoking Status: Current Every Day Smoker Frequency of alcohol use: Rare Drug Abuse: None Family History: Reviewed & Not Pertinent, Malignancy, Thyroid Disfunction - Thyroid cancer Patient has suicidal ideation: No Patient has homicidal ideation: No - Past Medical History Cardiac Medical History: Denies: Hx Congestive Heart Failure, Hx DVT, Hx Heart Attack, Hx Hypercholesterolemia, Hx Hypertension, Hx Pulmonary Embolism Pulmonary Medical History: Denies: Hx Asthma, Hx COPD Neurological Medical History: Denies: Hx Seizures Endocrine Medical History: Reports: Hx Diabetes Mellitus Type 1 - Insulin- dependent, metformin, lantus, and novalog. Denies: Hx Hyperthyroidism, Hx Hypothyroidism Renal/ Medical History: Reports: Hx Kidney Stones, Hx Ovarian Cysts. Denies: Hx Peritoneal Dialysis GI Medical History: Reports: Hx Gastroesophageal Reflux Disease. Denies: Hx Cirrhosis, Hx Hepatitis Musculoskeltal Medical History: Denies Hx Arthritis, Reports Hx Musculoskeletal Deformity, Reports Hx Musculoskeletal Trauma Skin Medical History: Denies Hx Eczema, Denies Hx Psoriasis Psychiatric Medical History: Reports: Hx Anxiety Denies: Hx Depression Infectious Medical History: Denies: Hx Hepatitis Past Surgical History: Reports: Hx Cholecystectomy, Hx Oral Surgery - Dental surgery, Hx Tubal Ligation, Other - Incision and drainage of multiple perirectal abscesses - Immunizations Hx Diphtheria, Pertussis, Tetanus Vaccination: Yes - 2015 Review of Systems - Review of Systems Notes: My Normal Review Basic REVIEW OF SYSTEMS: CONSTITUTIONAL : Denies fever, chills, or sweats. Denies recent illness. RESPIRATORY: Denies cough, cold, or chest congestion. Denies shortness of breath, difficulty breathing, or wheezing. GASTROINTESTINAL: Denies abdominal pain. Denies nausea, vomiting, or diarrhea. GENITOURINARY: Denies difficulty urinating, painful urination, burning, frequency, or blood in urine. FEMALE GENITOURINARY: Bartholin Gland cyst. MUSCULOSKELETAL: Denies neck or back pain or joint pain or swelling. SKIN: Denies rash or skin lesions. NEUROLOGICAL: Denies altered mental status or loss of consciousness. Denies headache. Denies weakness or paralysis or loss of use of either side. Denies problems with gait or speech. Denies sensory or motor loss. ALL OTHER SYSTEMS REVIEWED AND NEGATIVE. Physical Exam - Vital signs Vitals: Temp Pulse Resp BP Pulse Ox 98.4 F 102 H 18 120/72 100 04/16/17 18:20 04/16/17 18:20 04/16/17 18:20 04/16/17 18:20 04/16/17 18:20 - Notes Notes: General Appearance: Well nourished, alert, cooperative, no acute distress, moderate obvious discomfort. Vitals: reviewed, See vital signs table. Eyes: PERRL, EOMI, Conjuctiva clear Mouth: No decreasd moisture Lungs: No wheezing, No rales, No rhonci, No accessory muscle use, good air exchange bilaterally. Heart: Tachycardic rate, Regular rythm, No murmur, no rub Pelvic exam: External pelvic exam was performed with the tachycardia, Haydee, in the room. She is has a 1 cm localized area of swelling consistent with a Bartholin's gland cyst. There is no cellulitis to the vaginal labia. Patient does have a yeast infection which patients are aware of and is on Diflucan for. Extremities: strength 5/5 in all extremities, good pulses in all extremities, no swelling or tenderness in the extremities, no edema. Skin: warm, dry, appropriate color, no rash Neuro: speech clear, oriented x 3, normal affect, responds appropriately to questions. Course - Re-evaluation Re-evalutation: 04/17/17 08:06 This is was incised and drained. My concern also is that the patient has some metabolic acidosis in conjunction with recently elevated blood sugars. She does not have a gap yet. I informed the patient that it would be holley for her to stay a little bit longer and let me repeat a chemistry panel to make sure that her acidosis is resolving with IV fluids and also to help monitor her sugar. Patient was about to leave before even got another to drain abscess. I did talk her into staying for me to even drain the abscess. She refused to stay for any further blood work. She says she will keep close on her blood sugars and return if she feels worse in any way. She is understanding that leaving early could cause her to DKA. I did repeatedly say this to her and she is shows understanding of this but still chooses to leave. Also talked to patient length about need to follow-up with gynecology to arrange for evaluation of possible marsupialization being that she has had these Bartolin gland cyst occur many times in the past. She encouraged to return to ER immediately if she has fevers, redness, current high blood sugar, swelling to the area, vomiting, or she feels unwell. 04/17/17 08:08 Dictation of this chart was performed using voice recognition software; therefore, there may be some unintended grammatical errors. - Vital Signs Vital signs: Temp Pulse Resp BP Pulse Ox 98.5 F 100 20 125/88 H 99 04/17/17 00:11 04/17/17 00:11 04/17/17 00:11 04/17/17 00:11 04/17/17 00:11 - Laboratory Result Diagrams: 04/16/17 22:45 04/16/17 22:45 Laboratory results interpreted by me: 04/16/17 04/16/17 04/16/17 19:20 22:39 22:45 RDW 14.3 H Carbon Dioxide Creatinine Glucose POC Glucose 234 H Urine Glucose (UA) >=500 H Urine Ketones 80 H 04/16/17 22:45 RDW Carbon Dioxide 17 L Creatinine 0.44 L Glucose 264 H POC Glucose Urine Glucose (UA) Urine Ketones Procedures - Incision and Drainage bartholin gland Type: Simple Anesthetic type: 1% Lidocaine mL's of anesthetic: 1 Blade size: 11 I&D procedure: Betadine prep applied Incision Method: Incision made by scalpel Amount/type of drainage: 2mls of yellow tinged fluid Discharge - Discharge Clinical Impression: Bartholin cyst, Metabolic acidosis, Hyperglycemia Condition: Good Disposition: HOME, SELF-CARE Instructions: Oral Narcotic Medication ([facility]) Additional Instructions: [facility], Dr. Mathis. Please inform them that you have been seen in the ER multiple times for Bartholin galnd cysts and the ER has referred you for evaluation for marsupialization of the bartholin gland. Please return to the ER if you have increasing swelling, spreading redness, fevers, or feel unwell. Also, as discussed with you you do have a nongap acidosis. This is not yet DKA, but it is very close to DKA and you are at very high risk for progressing to DKA. I want you to stay in the ER a little bit longer to treat you and to reassess your labs to make sure you have improved. Please return to the ER immediately at anytime for further treatment as we want what is best for you. Please keep a very close eye on your blood sugars and return to the ER if you have vomiting, fevers, increasing blood sugars or feel unwell. Prescriptions: Hydrocodone/Acetaminophen [[place] 5-325 mg Tablet] 1 tab PO Q4 PRN #16 tablet PRN Reason: For Breakthrough Pain Forms: Return to Work Referrals: SAI MATHIS MD [ACTIVE STAFF] - Follow up in 3-5 days
[2017-04-17 00:11] VITALS: BP 125/88
== END 2017-04-17 00:11 | disposition home or self-care (01) ==
LOC: ER 18:13
PROC: 0U9L0ZZ Drainage of Vestibular Gland, Open Approach (ICD-10-PCS; principal; 2017-04-16)
DX: N75.0 Cyst of Bartholin's gland (principal); E10.10 Type 1 diabetes mellitus with ketoacidosis without coma; F17.200 Nicotine dependence, unspecified, uncomplicated; Z87.442 Personal history of urinary calculi; Z88.6 Allergy status to analgesic agent
CPT/HCPCS: 99283; 96360; 36415; 82962; 85025; 81025; 80048; 81001; 56420; J3490; J7030

== ENCOUNTER 2017-04-22 16:27 | Emergency (ER) | payer MEDICAID ==
[2017-04-22] MEDS ORDERED: FENTANYL CITRATE INJ/PF 100 MCG/2 ML AMPUL IV ONE (17:02)
--- NOTE | 2017-04-22 17:04 | ER Document Report ---
ED Medical Screen (RME) - General Chief Complaint: Abscess Stated Complaint: POSSIBLE ABSCESS Time Seen by Provider: 04/22/17 16:58 Notes: RME DISCLOSURE I have seen this patient as part of a Rapid Medical Evaluation and, if applicable, placed any initially appropriate orders. The patient will be seen and fully evaluated, including a full history and physical exam, by a provider ( in Main ED or Fast Track) when a room becomes available. 26-year-old female past medical history diabetes and DKA here with complaints of vaginal abscesses and anal abscesses. They started several days ago and have worsened. She has not had any fevers or chills. She has a history of these abscesses and in the past as needed surgical intervention. Per chart review, she has seen Dr. Alfredo Krishnan of Surgery for varun-rectal abscesses. TRAVEL OUTSIDE OF THE [place] IN LAST 30 DAYS: No - Related Data Allergies/Adverse Reactions: aspirin Allergy (Mild, Verified 04/16/17 18:14) Hives ibuprofen Allergy (Mild, Verified 04/16/17 18:14) Hives tramadol Allergy (Mild, Verified 04/16/17 18:14) Hives ketorolac [From Toradol] Allergy (Verified 04/16/17 18:14) Past Medical History - Social History Frequency of alcohol use: Rare Drug Abuse: None Family history: Reviewed & Not Pertinent - Past Medical History Cardiac Medical History: Denies: Hx Congestive Heart Failure, Hx DVT, Hx Heart Attack, Hx Hypercholesterolemia, Hx Hypertension, Hx Pulmonary Embolism Pulmonary Medical History: Denies: Hx Asthma, Hx COPD Neurological Medical History: Denies: Hx Seizures Endocrine Medical History: Reports: Hx Diabetes Mellitus Type 1 - Insulin- dependent, metformin, lantus, and novalog. Denies: Hx Hyperthyroidism, Hx Hypothyroidism Renal/ Medical History: Reports: Hx Kidney Stones, Hx Ovarian Cysts. Denies: Hx Peritoneal Dialysis GI Medical History: Reports: Hx Gastroesophageal Reflux Disease. Denies: Hx Cirrhosis, Hx Hepatitis Musculoskeltal Medical History: Denies Hx Arthritis, Reports Hx Musculoskeletal Deformity, Reports Hx Musculoskeletal Trauma Skin Medical History: Denies Hx Eczema, Denies Hx Psoriasis Psychiatric Medical History: Reports: Hx Anxiety Denies: Hx Depression Infectious Medical History: Denies: Hx Hepatitis Past Surgical History: Reports: Hx Cholecystectomy, Hx Oral Surgery - Dental surgery, Hx Tubal Ligation, Other - Incision and drainage of multiple perirectal abscesses - Immunizations Hx Diphtheria, Pertussis, Tetanus Vaccination: Yes - 2016 History of Influenza Vaccine for 12/2016 - 05/2017 Season: No Physical Exam - Vital signs Vitals: Temp Pulse Resp BP Pulse Ox 98.6 F 125 H 16 124/79 100 04/22/17 16:55 04/22/17 16:55 04/22/17 16:55 04/22/17 16:55 04/22/17 16:55 Course - Vital Signs Vital signs: Temp Pulse Resp BP Pulse Ox 98.6 F 125 H 16 124/79 100 04/22/17 16:55 04/22/17 16:55 04/22/17 16:55 04/22/17 16:55 04/22/17 16:55
[2017-04-22 18:06] LABS: ABSOLUTE EOSINOPHILS # (AUTO) 0.2 10^3/uL (0.0-0.6); ABSOLUTE LYMPHOCYTES (AUTO) 2.1 10^3/uL (0.5-4.7); ABSOLUTE MONOCYTES (AUTO) 0.6 10^3/uL (0.1-1.4); ABSOLUTE NEUT (AUTO) 4.1 10^3/uL (1.7-8.2); BASOPHILS % (AUTO) 0.6 % (0-2); EOSINOPHILS % (AUTO) 2.2 % (0-6); HEMATOCRIT 43.2 % (36.0-47.0); HEMOGLOBIN 14.5 g/dL (12.0-15.5); LYMPHOCYTES % (AUTO) 30.3 % (13-45); MEAN CORPUSCULAR HGB CONC 33.7 g/dL (32.0-36.0); MEAN CORPUSCULAR VOLUME 92 fl (80-97); PLATELET COUNT 197 10^3/uL (150-450); RED BLOOD COUNT 4.69 10^6/uL (3.72-5.28); RED CELL DISTRIBUTION WIDTH 14.8 % (11.5-14.0); SEGMENTED NEUTROPHILS % (AUTO) 58.9 % (42-78); TOTAL CELLS COUNTED % (AUTO) 100 %
--- NOTE | 2017-04-22 18:09 | ER Document Report ---
ED General - General Chief Complaint: Abscess Stated Complaint: POSSIBLE ABSCESS Time Seen by Provider: 04/22/17 16:58 Notes: The patient is a 26-year-old female, past medical history diabetes, frequent Bartholin and vaginal abscesses, prior perirectal abscesses that required surgical drainage, presents with several days of abscesses in her vagina and a small abscess around her anus. She shaves her vagina. She is supposed to follow-up with gynecology, but has not yet. She frequently comes to the ER for drainage. Patient denies nausea, vomiting, vaginal discharge, difficulty stooling or fevers. TRAVEL OUTSIDE OF THE [place] IN LAST 30 DAYS: No - Related Data Allergies/Adverse Reactions: aspirin Allergy (Mild, Verified 04/16/17 18:14) Hives ibuprofen Allergy (Mild, Verified 04/16/17 18:14) Hives tramadol Allergy (Mild, Verified 04/16/17 18:14) Hives ketorolac [From Toradol] Allergy (Verified 04/16/17 18:14) Past Medical History - General Information source: Patient - Social History Smoking Status: Current Every Day Smoker Frequency of alcohol use: Rare Drug Abuse: None Family History: Reviewed & Not Pertinent, Malignancy, Thyroid Disfunction - Thyroid cancer Patient has suicidal ideation: No Patient has homicidal ideation: No - Past Medical History Cardiac Medical History: Denies: Hx Congestive Heart Failure, Hx DVT, Hx Heart Attack, Hx Hypercholesterolemia, Hx Hypertension, Hx Pulmonary Embolism Pulmonary Medical History: Denies: Hx Asthma, Hx COPD Neurological Medical History: Denies: Hx Seizures Endocrine Medical History: Reports: Hx Diabetes Mellitus Type 1 - Insulin- dependent, metformin, lantus, and novalog. Denies: Hx Hyperthyroidism, Hx Hypothyroidism Renal/ Medical History: Reports: Hx Kidney Stones, Hx Ovarian Cysts. Denies: Hx Peritoneal Dialysis GI Medical History: Reports: Hx Gastroesophageal Reflux Disease. Denies: Hx Cirrhosis, Hx Hepatitis Musculoskeltal Medical History: Denies Hx Arthritis, Reports Hx Musculoskeletal Deformity, Reports Hx Musculoskeletal Trauma Skin Medical History: Denies Hx Eczema, Denies Hx Psoriasis Psychiatric Medical History: Reports: Hx Anxiety Denies: Hx Depression Infectious Medical History: Denies: Hx Hepatitis Past Surgical History: Reports: Hx Cholecystectomy, Hx Oral Surgery - Dental surgery, Hx Tubal Ligation, Other - Incision and drainage of multiple perirectal abscesses - Immunizations Hx Diphtheria, Pertussis, Tetanus Vaccination: Yes - 2016 Review of Systems - Review of Systems Notes: REVIEW OF SYSTEMS: CONSTITUTIONAL: -fevers, -chills EENT: -eye pain, -difficulty swallowing, -nasal congestion CARDIOVASCULAR: -chest pain, -syncope. RESPIRATORY: -cough, -SOB GASTROINTESTINAL: -abdominal pain, -nausea, -vomiting, -diarrhea GENITOURINARY: -dysuria, -hematuria MUSCULOSKELETAL: -back pain, -neck pain SKIN: +multiple abscesses in groin HEMATOLOGIC: -easy bruising or bleeding. LYMPHATIC: -swollen, enlarged glands. NEUROLOGICAL: -altered mental status or loss of consciousness, -headache, - neurologic symptoms PSYCHIATRIC: -anxiety, -depression. ALL OTHER SYSTEMS REVIEWED AND NEGATIVE. Physical Exam - Vital signs Vitals: Temp Pulse Resp BP Pulse Ox 98.6 F 125 H 16 124/79 100 04/22/17 16:55 04/22/17 16:55 04/22/17 16:55 04/22/17 16:55 04/22/17 16:55 - Notes Notes: PHYSICAL EXAMINATION: GENERAL: Well-appearing, well-nourished and in no acute distress. HEAD: Atraumatic, normocephalic. EYES: Pupils equal round and reactive to light, extraocular movements intact, sclera anicteric, conjunctiva are normal. ENT: nares patent, oropharynx clear without exudates. Moist mucous membranes. NECK: Normal range of motion, supple without lymphadenopathy LUNGS: Breath sounds clear to auscultation bilaterally and equal. No wheezes rales or rhonchi. HEART: Regular rate and rhythm without murmurs ABDOMEN: Soft, nontender, normoactive bowel sounds. No guarding, no rebound. No masses appreciated. : Left mons pubis 3 cm pointed abscess, left 5 cm Bartholin abscess RECTAL: No fluctuant areas around rectum, prior surgical wounds EXTREMITIES: Normal range of motion, no pitting or edema. No cyanosis. NEUROLOGICAL: Cranial nerves grossly intact. Normal speech, normal gait. Normal sensory and motor exams. PSYCH: Normal mood, normal affect. Course - Re-evaluation Re-evalutation: Pt with hyperglycemia, but no evidence of DKA. Provided her with IV fluids and instructed her that she must follow with her primary care physician and continue to take her insulin. Patient with 2 groin abscesses. No rectal or perirectal abscesses seen. She is in a lot of pain and a bedside I&D under local anesthesia would be difficult for the patient. After explaining risks and benefits, procedural sedation was provided with ketamine to drain the abscesses with a large amount of purulent drainage. Will send home on Bactrim and have her follow-up with gynecology and her primary care physician. - Vital Signs Vital signs: Temp Pulse Resp BP Pulse Ox 98.0 F 87 17 116/78 100 04/22/17 22:01 04/22/17 21:31 04/22/17 22:01 04/22/17 22:01 04/22/17 22:01 - Laboratory Result Diagrams: 04/22/17 17:50 04/22/17 17:50 Laboratory results interpreted by me: 04/22/17 04/22/17 04/22/17 17:50 17:50 22:18 RDW 14.8 H Sodium 134.4 L Carbon Dioxide 16 L Creatinine 0.44 L Glucose 429 H* POC Glucose 269 H - Diagnostic Test Radiology reviewed: Image reviewed, Reports reviewed Radiology results interpreted by me: CT A/P: NAD. No abscesses seen. Procedures - Conscious Sedation Conscious sedation Time started: 21:13 Time completed: 21:25 Consent obtained: Yes Indication: Multiple vaginal abscesses Last meal: 0800 Pt with a mild systemic disease.: P2. - ASA Classification. Airway Evaluation: Normal anatomy Mallampati Classification: Class 1 Used during procedure: Suction available, IV access obtained, Pulse ox on pt., athletic monitor on pt. Medications administered: Ketamine Reversal agents: None I personally performed/intraservice time: Sedation, Procedure, 30 min or less Complications: No - Incision and Drainage Left Labia Time completed: 21:15 Type: Multiple Anesthetic type: 1% Lidocaine mL's of anesthetic: 8 Blade size: 11 I&D procedure: Betadine prep applied Incision Method: Incision made by scalpel Amount/type of drainage: Purulent drainage Discharge - Discharge Clinical Impression: Abscess of vagina, Hyperglycemia, Bartholin cyst Condition: Stable Disposition: HOME, SELF-CARE Additional Instructions: ABSCESS: You have an abscess (boil). This a pus-forming infection, usually due to staph. Some boils may be left to drain on their own, but most require lancing. From the time the tender lump first appears, it may be three or four days before the abscess is ready to wilfrido. Local heat and rest help at this stage of treatment. An antibiotic may prevent spread of the infection. Once the abscess is opened, packing may be placed into it. This is done so pus is not sealed inside by premature closure of the cavity. The packing will be removed at your follow-up visit or you may be advised to remove it yourself at home. Sometimes this packing must be replaced a few times during healing. The wound will heal with surprisingly little scar. Depending on the size and location of an abscess, healing can take one to four weeks. You may shower and wash the area around the incision site two or three times a day. Antibiotics may be prescribed, but are usually not necessary after an abscess has been drained. If you develop fever, chills, worsening pain, or increasing swelling in the area, call the doctor or return immediately. POST INCISION AND DRAINAGE: You have had an incision made to allow drainage of an abscess. The incision must remain open so that pus and debris can drain from the wound. If the abscess cavity is large, packing is placed. This keeps the tissues from collapsing and trapping pus inside, while the body shrinks the cavity. The packing may need to be replaced every day or two. The physician will instruct you on the packing. Keep a bulky dressing over the area. Replace it if it becomes saturated with blood or pus. Do not disturb the packing (if present). You may shower and cleanse the area with gentle soap and warm water two or three times a day. Local warmth may be soothing, and may promote faster healing. Return if you develop high fever or chills, or if you note spreading redness, increasing swelling, or increasing tenderness. TRIMETHOPRIM-SULFA: You have been given a prescription for trimethoprim-sulfa (TMS, Septra, Bactrim). This is a combination antibiotic of the sulfa class, often used for urinary tract infections, middle ear infections, bronchitis, shigella intestinal infection, and Pneumocystis pneumonia. TMS is usually well-tolerated. Occasional side effects include nausea and decreased appetite. Septra is not recommended for infants less than two months of age. Do not take this medication if you have experienced severe side effects or allergy to sulfa medicine. You should stop this medicine at once and contact your physician if you develop any rash, joint pain, shortness of breath, bruising, or jaundice ( yellow color in the skin), or if you develop any other new or unusual symptoms. FOLLOW-UP CARE: Most simple abscesses will not require a follow up visit. If you had packing placed in the abscess, remove it as instructed by the physician. If you have been referred to a physician for follow-up care, call the physicians office for an appointment as you were instructed or within the next two days. If you experience worsening or a significant change in your symptoms, return to the Emergency Department at any time for re-evaluation. Prescriptions: Sulfamethoxazole/Trimethoprim [Bactrim Ds Tablet] 1 each PO Q12H #14 tablet Referrals: DENVER STAFFORD PA-C [Primary Care Provider] - Follow up as needed SCOTT OBRIEN MD [ACTIVE STAFF] - Follow up as needed
[2017-04-22 18:28] LABS: ANION GAP 17 (5-19); BLOOD UREA NITROGEN 10 mg/dL (7-20); CALCIUM 10.1 mg/dL (8.4-10.2); CARBON DIOXIDE 16 mmol/L (22-30); CHLORIDE 101 mmol/L (98-107); POTASSIUM 4.2 mmol/L (3.6-5.0); SODIUM 134.4 mmol/L (137-145)
[2017-04-22 18:40] LABS: GLUCOSE 429 mg/dL (75-110)
[2017-04-22] MEDS: NORMAL SALINE 1000 ML 1,000 ML IV PRN ×2 (19:12→19:15)
--- NOTE | 2017-04-22 19:21 | RADIOLOGY REPORT (SQ) ---
EXAM DESCRIPTION: CT ABD/PELVIS WITH IV ONLY COMPLETED DATE/TIME: 04/22/2017 7:08 pm REASON FOR STUDY: vaginal / perirectal abscess; eval extent of absce COMPARISON: None. TECHNIQUE: CT scan of the abdomen and pelvis performed using helical scanning technique with dynamic intravenous contrast injection. No oral contrast. Images reviewed with lung, soft tissue, and bone windows. Reconstructed coronal and sagittal MPR images reviewed. Delayed images for evaluation of the urinary system also acquired. All images stored on PACS. All CT scanners at this facility use dose modulation, iterative reconstruction, and/or weight based d osing when appropriate to reduce radiation dose to as low as reasonably achievable (ALARA). [facility]: Dose Right [facility]: CareDose [facility]: Dose Right [facility]: Teradose 4D [facility]: [employer] CONTRAST TYPE AND DOSE: contrast/concentration: Isovue 370.00 mg/ml; Total Contrast Delivered: 63.0 ml; Total Saline Delivered: 65.0 ml RENAL FUNCTION: None required. The patient is less than 50 years old. RADIATION DOSE: CT Rad equipment meets quality standard of care and radiation dose reduction techniq ues were employed. CTDIvol: 2.6 - 3.1 mGy. DLP: 308 mGy-cm.. LIMITATIONS: No body fat. Limited evaluation soft tissue. FINDINGS: LOWER CHEST: No significant findings. No nodules or infiltrates. LIVER: Normal size. No masses. No dilated ducts. SPLEEN: Normal size. No focal lesions. PANCREAS: No masses. No significant calcifications. No adjacent inflammation or peripancreatic fluid collections. Pancreatic duct not dilated. GALLBLADDER: No identified stones by CT criteria. No inflammatory changes to suggest cholecystitis. ADRENAL GLANDS: No significant masses or asymmetry. RIGHT KIDNEY AND URETER: No solid masses. Nonobstructive calculi. No hydronephrosis or hydrourete r. LEFT KIDNEY AND URETER: No solid masses. No significant calcifications. No hydronephrosis or hydr oureter. AORTA AND VESSELS: No aneurysm. No dissection. Renal arteries, SMA, celiac without stenosis. RETROPERITONEUM: No retroperitoneal adenopathy, hemorrhage or masses. BOWEL AND PERITONEAL CAVITY: No masses or inflammatory changes. No free fluid or peritoneal masses. APPENDIX: Not visualized. PELVIS: No free fluid. Normal bladder. BTL clips. No abscess can be identified perirectal or in th e vagina. ABDOMINAL WALL: No masses. No hernias. BONES: No significant or acute findings. OTHER: No other significant finding. IMPRESSION: No perirectal abscess or fluid collection identified. Study limited by a lack of body f at. No enhancing lesions. TECHNICAL DOCUMENTATION: JOB ID: [id number] Quality ID # [id number]: Final reports with documentation of one or more dose reduction techniques (e.g., Au tomated exposure control, adjustment of the mA and/or kV according to patient size, use of iterative reconstruction technique) 2010 [employer]- All Rights Reserved
[2017-04-22] MEDS ORDERED: LIDOCAINE 1%/EPINEPHRINE INJ 20 ML VIAL INJ ONE (19:22)
[2017-04-22] MEDS ORDERED: CLINDAMYCIN 600 MG/D5W RTU 600 MG/50 ML RTUPB IV ONE (20:02)
[2017-04-22] MEDS ORDERED: KETAMINE HCL INJ 500 MG/10 ML VIAL IV ONE (20:10)
[2017-04-22] MEDS ORDERED: KETAMINE HCL INJ 500 MG/10 ML VIAL ONE (20:43)
[2017-04-22 22:33] VITALS: BP 116/78
== END 2017-04-22 22:33 | disposition home or self-care (01) ==
LOC: ER 16:27
DX: N76.4 Abscess of vulva (principal); N75.0 Cyst of Bartholin's gland; E10.65 Type 1 diabetes mellitus with hyperglycemia; F17.200 Nicotine dependence, unspecified, uncomplicated; Z88.6 Allergy status to analgesic agent; Z88.5 Allergy status to narcotic agent; Z88.8 Allergy status to other drugs, medicaments and biological substances
CPT/HCPCS: 99283; 96361; 99152; 96365; 36415; 87040; 82962; 85025; 81025; 80048; 74177; 56405; S0077; J3010; J3490 ×2; J7030

== ENCOUNTER 2017-04-30 16:36 | Emergency (ER) | payer MEDICAID ==
[2017-04-30 16:55] VITALS: BP 102/61
== END 2017-04-30 18:00 | disposition left against medical advice (07) ==
LOC: ER 16:36
DX: Z53.21 Procedure and treatment not carried out due to patient leaving prior to being seen by health care provider (principal)

== ENCOUNTER 2017-05-08 17:28 | Observation (INO) | payer MEDICAID ==
[2017-05-08] MEDS ORDERED: NORMAL SALINE 1000 ML 1,000 ML IV PRN (17:45)
[2017-05-08] MEDS ORDERED: AMPICILLIN SOD/SULBACTAM 3 GM VIAL IV ONE (18:13)
--- NOTE | 2017-05-08 18:14 | ER Document Report ---
ED GI Bleed / Rectal Pain - General Chief Complaint: Rectal Abscess Stated Complaint: POSSIBLE ABSCESS Time Seen by Provider: 05/08/17 17:48 Mode of Arrival: Ambulatory Information source: Patient TRAVEL OUTSIDE OF THE [place] IN LAST 30 DAYS: No - HPI Patient complains to provider of: Rectal pain Onset: Last week Timing/Duration: Persistent Quality of pain: Fullness, Pressure Severity of symptoms: Moderate Pain Level: 3 Notes: Patient is a 26-year-old female presenting to the emergency room today complaining of one-week history of rectal pain with swelling, tenderness and purulent drainage, she reports a history of multiple perirectal abscesses in the past, frequently requiring surgical drainage, she denies any fever, no vomiting, unsure of when her last bowel movement was at this point in time, denies any bleeding - Related Data Allergies/Adverse Reactions: aspirin Allergy (Mild, Verified 05/08/17 17:30) Hives ibuprofen Allergy (Mild, Verified 05/08/17 17:30) Hives tramadol Allergy (Mild, Verified 05/08/17 17:30) Hives ketorolac [From Toradol] Allergy (Verified 05/08/17 17:30) Past Medical History - General Information source: Patient - Social History Smoking Status: Unknown if Ever Smoked Family History: Reviewed & Not Pertinent, Malignancy, Thyroid Disfunction - Thyroid cancer - Past Medical History Cardiac Medical History: Denies: Hx Congestive Heart Failure, Hx DVT, Hx Heart Attack, Hx Hypercholesterolemia, Hx Hypertension, Hx Pulmonary Embolism Pulmonary Medical History: Denies: Hx Asthma, Hx COPD Neurological Medical History: Denies: Hx Seizures Endocrine Medical History: Reports: Hx Diabetes Mellitus Type 1 - Insulin- dependent, metformin, lantus, and novalog. Denies: Hx Hyperthyroidism, Hx Hypothyroidism Renal/ Medical History: Reports: Hx Kidney Stones, Hx Ovarian Cysts. Denies: Hx Peritoneal Dialysis GI Medical History: Reports: Hx Gastroesophageal Reflux Disease. Denies: Hx Cirrhosis, Hx Hepatitis Musculoskeltal Medical History: Denies Hx Arthritis, Reports Hx Musculoskeletal Deformity, Reports Hx Musculoskeletal Trauma Skin Medical History: Denies Hx Eczema, Denies Hx Psoriasis Psychiatric Medical History: Reports: Hx Anxiety Denies: Hx Depression Infectious Medical History: Denies: Hx Hepatitis Past Surgical History: Reports: Hx Cholecystectomy, Hx Oral Surgery - Dental surgery, Hx Tubal Ligation, Other - Incision and drainage of multiple perirectal abscesses - Immunizations Hx Diphtheria, Pertussis, Tetanus Vaccination: Yes - 2016 Review of Systems - Review of Systems Constitutional: No symptoms reported EENT: No symptoms reported Cardiovascular: No symptoms reported Respiratory: No symptoms reported Gastrointestinal: See HPI Genitourinary: No symptoms reported Female Genitourinary: No symptoms reported Musculoskeletal: No symptoms reported Skin: No symptoms reported Hematologic/Lymphatic: No symptoms reported Neurological/Psychological: No symptoms reported -: Yes All other systems reviewed and negative Physical Exam - Vital signs Vitals: Temp Pulse Resp BP Pulse Ox 97.6 F 124 H 18 110/72 97 05/08/17 17:35 05/08/17 17:35 05/08/17 17:35 05/08/17 17:35 05/08/17 17:35 Interpretation: Tachycardic - General General appearance: Appears well, Alert - HEENT Head: Normocephalic, Atraumatic Eyes: Normal Pupils: PERRL - Respiratory Respiratory status: No respiratory distress Chest status: Nontender Breath sounds: Normal Chest palpation: Normal - Cardiovascular Rhythm: Regular Heart sounds: Normal auscultation Murmur: No - Abdominal Inspection: Normal Distension: No distension Bowel sounds: Normal Tenderness: Nontender Organomegaly: No organomegaly - Rectal Tenderness: Yes Notes: Perirectal area is erythematous and irritated, there is diffuse tenderness, purulent drainage from 2 small openings on the left buttock adjacent to the rectum, exquisite tenderness, patient tearful during exam - Back Back: Normal, Nontender - Extremities General upper extremity: Normal inspection, Nontender, Normal color, Normal ROM , Normal temperature General lower extremity: Normal inspection, Nontender, Normal color, Normal ROM , Normal temperature, Normal weight bearing. No: Raúl's sign - Neurological Neuro grossly intact: Yes Cognition: Normal Orientation: AAOx4 Melita Coma Scale Eye Opening: Spontaneous [place] Coma Scale Verbal: Oriented [place] Coma Scale Motor: Obeys Commands Melita Coma Scale Total: 15 Speech: Normal Motor strength normal: LUE, RUE, LLE, RLE Sensory: Normal - Psychological Associated symptoms: Normal affect, Normal mood - Skin Skin Temperature: Warm Skin Moisture: Dry Skin Color: Normal Course - Re-evaluation Re-evalutation: 05/08/17 21:21 Patient was seen and evaluated by surgeon who agrees to admit for further evaluation and treatment - Vital Signs Vital signs: Temp Pulse Resp BP Pulse Ox 97.6 F 124 H 11 L 92/60 L 100 05/08/17 17:35 05/08/17 17:35 05/08/17 21:01 05/08/17 21:00 05/08/17 21:01 - Laboratory Result Diagrams: 05/08/17 18:19 05/08/17 18:19 Laboratory results interpreted by me: 05/08/17 05/08/17 05/08/17 18:19 18:19 18:25 RDW 15.7 H Potassium 3.0 L* Carbon Dioxide 18 L Creatinine 0.49 L Glucose 147 H AST 8 L Urine Protein 30 H Urine Glucose (UA) >=500 H Urine Ketones 80 H Urine Blood LARGE H Ur Leukocyte Esterase TRACE H - Consults Suhr Time consulted: 18:14 Reason for consultation: 05/08/17 18:14 Perirectal abscess Consulted provider: will come to ER - Requested CT scan of the pelvis with IV contrast Critical Care Note - Critical Care Note Total time excluding time spent on procedures (mins): 30 Comments: Patient with perirectal abscess, periods of tachycardia and hypotension, requiring close observation, IV fluids, antibiotics, admission to surgical service for further evaluation and treatment Discharge - Discharge Clinical Impression: Perianal abscess Condition: Fair Disposition: ADMITTED OBSERVATION Admitting Provider: Surgicalist Unit Admitted: Surgical Floor
[2017-05-08] MEDS ORDERED: HYDROMORPHONE HCL INJ/PF 2 MG/ML AMPULE IV ONE ×2 (18:26→21:14)
[2017-05-08 18:34] LABS: ABSOLUTE BASOPHILS # (AUTO) 0.1 10^3/uL (0.0-0.2); ABSOLUTE EOSINOPHILS # (AUTO) 0.2 10^3/uL (0.0-0.6); ABSOLUTE LYMPHOCYTES (AUTO) 2.4 10^3/uL (0.5-4.7); ABSOLUTE MONOCYTES (AUTO) 0.5 10^3/uL (0.1-1.4); ABSOLUTE NEUT (AUTO) 2.8 10^3/uL (1.7-8.2); EOSINOPHILS % (AUTO) 2.7 % (0-6); HEMATOCRIT 39.6 % (36.0-47.0); HEMOGLOBIN 14.1 g/dL (12.0-15.5); LYMPHOCYTES % (AUTO) 41.2 % (13-45); MEAN CORPUSCULAR HEMOGLOBIN 32.1 pg (27.0-33.4); MEAN CORPUSCULAR HGB CONC 35.5 g/dL (32.0-36.0); MEAN CORPUSCULAR VOLUME 90 fl (80-97); MONOCYTES % (AUTO) 8.6 % (3-13); PLATELET COUNT 228 10^3/uL (150-450); RED BLOOD COUNT 4.39 10^6/uL (3.72-5.28); RED CELL DISTRIBUTION WIDTH 15.7 % (11.5-14.0); SEGMENTED NEUTROPHILS % (AUTO) 46.5 % (42-78); TOTAL CELLS COUNTED % (AUTO) 100 %; WHITE BLOOD COUNT 5.9 10^3/uL (4.0-10.5)
[2017-05-08 18:55] LABS: ALANINE AMINOTRANSFERASE 18 U/L (9-52); ALKALINE PHOSPHATASE 90 U/L (38-126); ANION GAP 16 (5-19); ASPARTATE AMINO TRANSFERASE 8 U/L (14-36); BILIRUBIN,DIRECT 0.2 mg/dL (0.0-0.4); BILIRUBIN,TOTAL 0.2 mg/dL (0.2-1.3); BLOOD UREA NITROGEN 12 mg/dL (7-20); CALCIUM 10.1 mg/dL (8.4-10.2); CARBON DIOXIDE 18 mmol/L (22-30); CHLORIDE 106 mmol/L (98-107); GLUCOSE 147 mg/dL (75-110); SODIUM 139.8 mmol/L (137-145); TOTAL PROTEIN 6.4 g/dL (6.3-8.2)
[2017-05-08 19:42] LABS: APPEARANCE,URINE SLIGHTLY-CLOUDY; BILIRUBIN,URINE NEGATIVE (NEGATIVE); CALCIUM OXALATE CRYSTALS,URINE FEW /HPF; COLOR,URINE YELLOW; GLUCOSE, URINE >=500 mg/dL (NEGATIVE); KETONES,URINE 80 mg/dL (NEGATIVE); LEUKOCYTE ESTERASE,URINE TRACE (NEGATIVE); NITRITE,URINE NEGATIVE (NEGATIVE); PROTEIN,URINE 30 mg/dL (NEGATIVE); URINE SPECIFIC GRAVITY 1.029; UROBILINOGEN,URINE NEGATIVE mg/dL (<2.0)
--- NOTE | 2017-05-08 20:45 | RADIOLOGY REPORT (SQ) ---
EXAM DESCRIPTION: CT ABD/PELVIS WITH IV ONLY COMPLETED DATE/TIME: 05/08/2017 8:16 pm REASON FOR STUDY: lower abd pain, varun-rectal abscess COMPARISON: 04/22/2017 TECHNIQUE: CT scan of the abdomen and pelvis performed using helical scanning technique with dynamic intravenous contrast injection. No oral contrast. Images reviewed with lung, soft tissue, and bone windows. Reconstructed coronal and sagittal MPR images reviewed. Delayed images for evaluation of the urinary system also acquired. All images stored on PACS. All CT scanners at this facility use dose modulation, iterative reconstruction, and/or weight based d osing when appropriate to reduce radiation dose to as low as reasonably achievable (ALARA). [facility]: Dose Right [facility]: CareDose [facility]: Dose Right [facility]: Teradose 4D [facility]: Showkicker CONTRAST TYPE AND DOSE: contrast/concentration: Isovue 370.00 mg/ml; Total Contrast Delivered: 49.0 ml; Total Saline Delivered: 51.0 ml RENAL FUNCTION: GFR > 60. RADIATION DOSE: CT Rad equipment meets quality standard of care and radiation dose reduction techniq ues were employed. CTDIvol: 2.7 - 3.1 mGy. DLP: 302 mGy-cm.. LIMITATIONS: None. FINDINGS: LOWER CHEST: No significant findings. No nodules or infiltrates. LIVER: Normal size. No masses. No dilated ducts. SPLEEN: Normal size. No focal lesions. PANCREAS: No masses. No significant calcifications. No adjacent inflammation or peripancreatic fluid collections. Pancreatic duct not dilated. GALLBLADDER: No identified stones by CT criteria. No inflammatory changes to suggest cholecystitis. ADRENAL GLANDS: No significant masses or asymmetry. RIGHT KIDNEY AND URETER: No solid masses. No significant calcifications. No hydronephrosis or hyd roureter. LEFT KIDNEY AND URETER: No solid masses. No significant calcifications. No hydronephrosis or hydr oureter. AORTA AND VESSELS: No aneurysm. No dissection. Renal arteries, SMA, celiac without stenosis. RETROPERITONEUM: No retroperitoneal adenopathy, hemorrhage or masses. BOWEL AND PERITONEAL CAVITY: No masses or inflammatory changes. No free fluid or peritoneal masses. APPENDIX: Not visualized. PELVIS: No fluid collection. Normal bladder. ABDOMINAL WALL: No masses. No hernias. BONES: No acute findings. OTHER: No other significant finding. IMPRESSION: NO ACUTE FINDING IN THE ABDOMEN OR PELVIS ON CT SCAN WITH IV CONTRAST. TECHNICAL DOCUMENTATION: JOB ID: [id number] Quality ID # [id number]: Final reports with documentation of one or more dose reduction techniques (e.g., Au tomated exposure control, adjustment of the mA and/or kV according to patient size, use of iterative reconstruction technique) 2010 [employer]- All Rights Reserved Reading location - IP/workstation name: [email or web address]
[2017-05-08] MEDS: POTASSI CL 20 MEQ/50 ML RIDER 20 MEQ/50 ML RTUPB IV SCH ×2 (20:51→22:35)
[2017-05-08] MEDS: NORMAL SALINE 1000 ML 1,000 ML IV PRN ×2 (21:04→21:35)
[2017-05-08] MEDS ORDERED: DEXTROSE 5%-1/2 NORMAL SALINE 1,000 ML with POTASSIUM CHLORIDE 30 MEQ IV PRN ×2 (21:22)
--- NOTE | 2017-05-08 21:22 | PDOC H&P ---
History of Present Illness Admission Date/PCP: DENVER STAFFORD PA-C Patient complains of: Perianal pain History of Present Illness: FRIDA ALMANZA is a 26 year old female with diabetes with 2 prior history of perianal abscesses status post incision and drainage the last one several months ago. She has had persistent openings at the perianal regions since her surgery but the area was not painful until several days ago when she developed severe pain in the area with tenderness and purulent drainage. Uncertain whether she has been having fevers. She denies any abdominal pain. She has no history of Crohn's disease. Past Medical History Cardiac Medical History: Denies: Congestive Heart Failure, DVT, Myocardial Infarction, Hyperlipidema, Hypertension, Pulmonary Embolism Pulmonary Medical History: Denies: Asthma, Chronic Obstructive Pulmonary Disease (COPD) Neurological Medical History: Denies: Seizures Endocrine Medical History: Reports: Diabetes Mellitus Type 1 - Insulin-dependent , metformin, lantus, and novalog Denies: Hyperthyroidism, Hypothyroidism GI Medical History: Reports: Gastroesophageal Reflux Disease Denies: Cirrhosis, Hepatitis Musculoskeltal Medical History: Denies: Arthritis Skin Medical History: Denies: Eczema, Psoriasis Psychiatric Medical History: Denies: Depression Past Surgical History Past Surgical History: Reports: Cholecystectomy, Tubal Ligation, Other - Incision and drainage of multiple perirectal abscesses Social History Smoking Status: Unknown if Ever Smoked Frequency of Alcohol Use: Occasional Hx Recreational Drug Use: No - denies Drugs: None Hx Prescription Drug Abuse: No Family History Family History: Reviewed & Not Pertinent, Malignancy, Thyroid Disfunction - Thyroid cancer Parental Family History Reviewed: No Children Family History Reviewed: No Sibling(s) Family History Reviewed.: No Medication/Allergy Home Medications: Insulin Aspart [Novolog Insulin (Aspart) 100 unit/mL] 10 units SQ TID 03/22/17 Insulin Degludec [Tresiba Flextouch U-100] 30 units SQ QHS 03/22/17 Hydrocodone/Acetaminophen [[place] 5-325 mg Tablet] 1 tab PO Q4 PRN #16 tablet 10/25 Sulfamethoxazole/Trimethoprim [Bactrim Ds Tablet] 1 each PO Q12H #14 tablet Allergies/Adverse Reactions: aspirin Allergy (Mild, Verified 05/08/17 17:30) Hives ibuprofen Allergy (Mild, Verified 05/08/17 17:30) Hives tramadol Allergy (Mild, Verified 05/08/17 17:30) Hives ketorolac [From Toradol] Allergy (Verified 05/08/17 17:30) Physical Exam Vital Signs: Temp Pulse Resp BP Pulse Ox 97.6 F 124 H 11 L 92/60 L 100 05/08/17 17:35 05/08/17 17:35 05/08/17 21:01 05/08/17 21:00 05/08/17 21:01 Intake & Output 05/07/17 05/08/17 05/09/17 06:59 06:59 06:59 Weight 55.6 kg General appearance: PRESENT: cooperative, mild distress Respiratory exam: PRESENT: clear to auscultation adriel Cardiovascular exam: PRESENT: RRR GI/Abdominal exam: PRESENT: other - Soft, nondistended, nontender to palpation Rectal exam: PRESENT: other - Diffuse erythema at the left varun-anal region with 3 separate openings with purulent drainage. No abnormalities on the right side. Patient with severe pain with digital rectal exam. Unable to perform it completely. Neurological exam: PRESENT: alert, awake Psychiatric exam: PRESENT: anxious Results Laboratory Results: 05/08/17 18:19 05/08/17 18:19 05/08/17 05/08/17 05/08/17 18:19 18:19 18:19 WBC 5.9 RBC 4.39 Hgb 14.1 Hct 39.6 MCV 90 MCH 32.1 MCHC 35.5 RDW 15.7 H Plt Count 228 Seg Neutrophils % 46.5 Lymphocytes % 41.2 Monocytes % 8.6 Eosinophils % 2.7 Basophils % 1.0 Absolute Neutrophils 2.8 Absolute Lymphocytes 2.4 Absolute Monocytes 0.5 Absolute Eosinophils 0.2 Absolute Basophils 0.1 Sodium 139.8 Potassium 3.0 L* Chloride 106 Carbon Dioxide 18 L Anion Gap 16 BUN 12 Creatinine 0.49 L Est GFR ( Amer) > 60 Est GFR (Non-Af Amer) > 60 Glucose 147 H Lactic Acid 1.5 Calcium 10.1 Magnesium Total Bilirubin 0.2 AST 8 L ALT 18 Alkaline Phosphatase 90 Total Protein 6.4 Albumin 4.0 Urine Color Urine Appearance Urine pH Ur Specific [place] Urine Protein Urine Glucose (UA) Urine Ketones Urine Blood Urine Nitrite Ur Leukocyte Esterase Urine WBC (Auto) Urine RBC (Auto) 05/08/17 05/08/17 18:19 18:25 WBC RBC Hgb Hct MCV MCH MCHC RDW Plt Count Seg Neutrophils % Lymphocytes % Monocytes % Eosinophils % Basophils % Absolute Neutrophils Absolute Lymphocytes Absolute Monocytes Absolute Eosinophils Absolute Basophils Sodium Potassium Chloride Carbon Dioxide Anion Gap BUN Creatinine Est GFR ( Amer) Est GFR (Non-Af Amer) Glucose Lactic Acid Calcium Magnesium 1.8 Total Bilirubin AST ALT Alkaline Phosphatase Total Protein Albumin Urine Color YELLOW Urine Appearance SLIGHTLY-CLOUDY Urine pH 6.0 Ur Specific [place] 1.029 Urine Protein 30 H Urine Glucose (UA) >=500 H Urine Ketones 80 H Urine Blood LARGE H Urine Nitrite NEGATIVE Ur Leukocyte Esterase TRACE H Urine WBC (Auto) 10 Urine RBC (Auto) 16 Impressions: Abdomen/Pelvis CT 05/08/17 18:13 IMPRESSION: NO ACUTE FINDING IN THE ABDOMEN OR PELVIS ON CT SCAN WITH IV CONTRAST. Assessment & Plan - Diagnosis (1) Perianal abscess Is this a current diagnosis for this admission?: Yes Plan: Recurrent. Although no abscess is seen on the CT and patient does have fairly wide openings at her perianal region that appears chronic, she has severe tenderness and marked erythema at the left perianal region. I will admit the patient for IV antibiotics. I will discuss with the oncoming surgeon in the morning about a possible exam under anesthesia in light of the severity of her symptoms.
[2017-05-08] MEDS ORDERED: GLUCAGON,HUMAN RECOMB 1 MG INJ IM PRN (21:29)
[2017-05-08] MEDS ORDERED: DEXTROSE 40% GEL 15 GM TUBE PO PRN ×2 (21:29)
[2017-05-08] MEDS ORDERED: DEXTROSE 50%-WATER 25 GM/50 ML DISP.SYRIN IV PRN ×2 (21:29)
[2017-05-08] MEDS ORDERED: POTASSI CL 30 MEQ/D5-1/2NS 1L 1000 ML IV PRN (21:45)
[2017-05-09] MEDS: METRONIDAZOLE 500 MG/NS RTU 100 ML IV SCH ×4 (00:42→17:19)
[2017-05-09] MEDS: AMPICILLIN SODIUM/SULBACTAM NA 3 GM in NORMAL SALINE 100 ML IV SCH ×3 (00:42→13:21)
[2017-05-09] MEDS: HYDROMORPHONE HCL INJ/PF 2 MG/ML AMPULE IV PRN ×4 (00:43→13:20)
[2017-05-09] MEDS: INSULIN REG, HUMAN 100 UNIT/ML 3 ML VIAL (PYX) SUBCUT PRN ×4 (01:40→18:09)
[2017-05-09] MEDS ORDERED: NORMAL SALINE 1000 ML 1,000 ML IV PRN (06:09)
[2017-05-09 07:46] LABS: ANION GAP 12 (5-19); BLOOD UREA NITROGEN 8 mg/dL (7-20); CALCIUM 8.1 mg/dL (8.4-10.2); CARBON DIOXIDE 16 mmol/L (22-30); CHLORIDE 110 mmol/L (98-107); GLUCOSE 287 mg/dL (75-110); POTASSIUM 3.1 mmol/L (3.6-5.0); SODIUM 137.9 mmol/L (137-145)
[2017-05-09] MEDS ORDERED: LIDOCAINE 0.5% INJ-PF (5 MG/ML) 50 ML SDV ONE (09:25)
[2017-05-09] MEDS ORDERED: LIDOCAINE 2% INJ-PF (20 MG/ML) 10 ML AMPUL ONE (09:47)
[2017-05-09] MEDS ORDERED: FENTANYL CITRATE INJ/PF 100 MCG/2 ML AMPUL ONE (09:47)
[2017-05-09] MEDS ORDERED: DEXAMETHASONE SOD PHOSPHATE INJ 4 MG/1 ML VIAL ONE (09:48)
[2017-05-09] MEDS ORDERED: MIDAZOLAM 2 MG/2 ML INJ ONE (09:48)
[2017-05-09] MEDS ORDERED: ONDANSETRON HCL INJ/PF 4 MG/2 ML SDV ONE (09:48)
[2017-05-09] MEDS ORDERED: ACETAMINOPHEN 100 ML IV ONE (09:49)
[2017-05-09] MEDS ORDERED: PROPOFOL INJ 200 MG/20 ML VIAL IV ONE (09:49)
[2017-05-09] MEDS ORDERED: KETAMINE HCL INJ 500 MG/10 ML VIAL ONE (09:56)
[2017-05-09] MEDS ORDERED: PROMETHAZINE HCL INJ 25 MG/1 ML VIAL IV PRN (11:24)
[2017-05-09] MEDS ORDERED: FENTANYL CITRATE INJ/PF 100 MCG/2 ML AMPUL IV PRN ×3 (11:24)
[2017-05-09] MEDS ORDERED: DIPHENHYDRAMINE HCL 50 MG/ML VIAL IV PRN (11:24)
[2017-05-09] MEDS ORDERED: MORPHINE SULFATE 10 MG/ML INJ IV PRN (11:24)
[2017-05-09] MEDS ORDERED: MEPERIDINE HCL/PF INJ 25 MG/1 ML DISP.SYRIN IV PRN (11:24)
--- NOTE | 2017-05-09 11:48 | OPERATIVE REPORT E ---
Operative Report NAME: FRIDA ALMANZA : 1990 AGE: 26Y DATE OF SURGERY: 05/09/2017 ROOM: 210 PREOPERATIVE DIAGNOSIS: Abscess of the left perianal area. POSTOPERATIVE DIAGNOSIS: Abscess of the left perianal area. OPERATION: Examination under general anesthesia and incision and drainage of abscess left perianal area. SURGEON: JAMES PANDA M.D. ANESTHESIA: General. INDICATION: This is a 26-year-old female with multiple perianal abscesses in the past. Came in again for redness and pain along the perianal area. DESCRIPTION OF PROCEDURE: After adequate general anesthesia, patient was placed in lithotomy position and the perineal area prepped and draped in the usual sterile fashion. Appropriate timeout was then called. On rectal examination, no intraabdominal lesion noted. She has a couple of small external hemorrhoids posteriorly. The area of the infected site appears to be open and with very small amount of drainage noted. However, culture of the drainage was then obtained. Next, local anesthesia infiltrated around the abscessed cavity site. The cavity itself measured about 2.5 x 2 x 1.5 cm deep. It is noted to be quite firm surrounding area. There appears to be may be a chronic opening with a small one more medial with a small bridge. The bridge *------* was then divided to make one opening. There was not much abscess noted. However, since the surface is quite firm, this was then coagulated for better hemostasis and to obliterate the possible shoot of capsule of this area. Good hemostasis noted. The area was further irrigated with saline solution. Further cautery of oozing sites was done until old areas that may be raw were then coagulated. Abscess cavity was then subsequently packed with 1/4 inch Iodoform gauze. Opening of the abscess cavity roughly measured about 1 cm. Sterile dressings placed over the area. Needle, instrument, and sponge count were all correct. Estimated blood loss was about 3 mL. Patient brought to recovery room in satisfactory condition. DICTATING PHYSICIAN: JAMES PANDA M.D. [id number] PHY#: [id number] ID: [id number] JOB#: [id number] ACCT: [id number] cc:JAMES PANDA M.D. >
[2017-05-09] MEDS ORDERED: ONDANSETRON HCL INJ/PF 4 MG/2 ML SDV IV PRN (11:50)
[2017-05-09] MEDS ORDERED: OXYCODONE-ACETAMINOPHEN 5-325 MG TABLET PO PRN (11:51)
[2017-05-09] MEDS ORDERED: AMPICILLIN SODIUM/SULBACTAM NA 3 GM in NORMAL SALINE 100 ML IV SCH (18:00)
[2017-05-09 18:24] VITALS: BP 104/51
--- NOTE | 2017-05-09 23:03 | DISCHARGE SUMMARY E ---
Discharge Summary NAME: FRIDA ALMANZA : 1990 AGE: 26Y ADMITTED: 05/08/2017 DISCHARGED: 05/09/2017 PROCEDURE DONE: Rectal examination under general anesthesia and incision and drainage of a perianal abscess. HOSPITAL COURSE: This is a 26-year-old female with juvenile diabetes on insulin and had previous perianal abscesses in the past. Developed another severe pain and at least 1 area along the perianal area and subsequently was admitted. She was admitted on 05/08/17. Started on IV antibiotics. On 05/09/17 underwent examination under general anesthesia of the perianal area and rectal exam. No evidence of intramucosal lesion. Appears to have just a perianal abscess area. This was on a chronic site that was partially opened and somewhat firm. This was further opened up with incision and drainage and cultures obtained. The surface of the cavity appears to be somewhat firm and, therefore, appears to be a chronicity to it. This was further electrocoagulated primarily on the surface to hopefully go through the *------* capsule where there is a firmness around it. The area was packed with Iodoform gauze. The patient discharged improved on 05/09/17, to continue on Neocipro and Percocet p.r.n. for pain for the next 3-4 days. DISCHARGE INSTRUCTIONS: The patient to be followed up in the surgical clinical. She was advised to start sitz baths tomorrow four times a day. The packing placed could easily be removed by the patient and she agreed to do it. Otherwise, the packing will be removed in the surgical clinical in the next 1-2 weeks. DICTATING PHYSICIAN: JAMES PANDA M.D. [id number] PHY#: [id number] ID: [id number] JOB#: [id number] ACCT: [id number] cc:JAMES PANDA M.D. [facility],
== END 2017-05-09 19:10 | disposition home or self-care (01) ==
LOC: ER 17:28 → INTOOBSV 21:25 → EH 21:25 → 2N 05-09 02:18
PROVIDERS: ATTEND Surgery
PROC: 0D9QXZX Drainage of Anus, External Approach, Diagnostic (ICD-10-PCS; principal; 2017-05-08)
DX: K61.0 Anal abscess (principal); E10.9 Type 1 diabetes mellitus without complications; K64.4 Residual hemorrhoidal skin tags; R00.0 Tachycardia, unspecified; I95.9 Hypotension, unspecified; Z79.4 Long term (current) use of insulin; Z90.49 Acquired absence of other specified parts of digestive tract; Z98.890 Other specified postprocedural states
CPT/HCPCS: 96376; 99291; 96375; 96365; 96366; 96367; 96368; 36415 ×2; 87040; 87070; 87205; 82962; 83735; 85025; 81025; 87075; 87077; 80048; 80053; 81001; 87186; 83605; 74177; 46050; A6266; J2250; J3010; J0295 ×2; J3490 ×2; J1170 ×2; J3480 ×2; J1815; J2405; J7030; J2704; J0131; 902; J1100

== ENCOUNTER 2017-06-07 19:14 | Emergency (ER) | payer MEDICAID ==
[2017-06-07] MEDS ORDERED: NORMAL SALINE 1000 ML 1,000 ML IV ONE (19:26)
--- NOTE | 2017-06-07 19:40 | ER Document Report ---
ED Medical Screen (RME) - General Chief Complaint: High Blood Sugar Stated Complaint: HIGH BLOOD SUGAR Time Seen by Provider: 06/07/17 19:26 Mode of Arrival: Ambulatory Information source: Patient Notes: 26-year-old insulin from [facility] and they were out until Friday, patient also notes she fell her back. Blood sugar is noted to be elevated she was last in DKA a few months ago I have greeted and performed a rapid initial assessment of this patient. A comprehensive ED assessment and evaluation of the patient, analysis of test results and completion of the medical decision making process will be conducted by additional ED providers. PHYSICAL EXAMINATION: GENERAL: Well-appearing, well-nourished and in no acute distress. HEAD: Atraumatic, normocephalic. EYES: Pupils equal round extraocular movements intact, conjunctiva are normal. ENT: Nares patent NECK: Normal range of motion LUNGS: No respiratory distress Musculoskeletal: Normal range of motion NEUROLOGICAL: Normal speech, normal gait. PSYCH: Normal mood, normal affect. SKIN: Warm, Dry, normal turgor, no rashes or lesions noted. TRAVEL OUTSIDE OF THE [place] IN LAST 30 DAYS: No - Related Data Allergies/Adverse Reactions: aspirin Allergy (Mild, Verified 05/08/17 17:30) Hives ibuprofen Allergy (Mild, Verified 05/08/17 17:30) Hives tramadol Allergy (Mild, Verified 05/08/17 17:30) Hives ketorolac [From Toradol] Allergy (Verified 05/08/17 17:30) Past Medical History - Social History Family history: Reviewed & Not Pertinent - Past Medical History Cardiac Medical History: Denies: Hx Congestive Heart Failure, Hx DVT, Hx Heart Attack, Hx Hypercholesterolemia, Hx Hypertension, Hx Pulmonary Embolism Pulmonary Medical History: Denies: Hx Asthma, Hx COPD Neurological Medical History: Denies: Hx Seizures Endocrine Medical History: Reports: Hx Diabetes Mellitus Type 1 - Insulin- dependent, metformin, lantus, and novalog. Denies: Hx Hyperthyroidism, Hx Hypothyroidism Renal/ Medical History: Reports: Hx Kidney Stones, Hx Ovarian Cysts. Denies: Hx Peritoneal Dialysis GI Medical History: Reports: Hx Gastroesophageal Reflux Disease. Denies: Hx Cirrhosis, Hx Hepatitis Musculoskeltal Medical History: Denies Hx Arthritis, Reports Hx Musculoskeletal Deformity, Reports Hx Musculoskeletal Trauma Skin Medical History: Denies Hx Eczema, Denies Hx Psoriasis Psychiatric Medical History: Reports: Hx Anxiety Denies: Hx Depression Infectious Medical History: Denies: Hx Hepatitis Past Surgical History: Reports: Hx Cholecystectomy, Hx Oral Surgery - Dental surgery, Hx Tubal Ligation, Other - Incision and drainage of multiple perirectal abscesses - Immunizations Hx Diphtheria, Pertussis, Tetanus Vaccination: Yes - 2016 History of Influenza Vaccine for 12/2016 - 05/2017 Season: Refused Physical Exam - Vital signs Vitals: Temp Pulse Resp BP Pulse Ox 97.7 F 89 16 108/56 L 100 06/07/17 19:18 06/07/17 19:18 06/07/17 19:18 06/07/17 19:18 06/07/17 19:18 Course - Vital Signs Vital signs: Temp Pulse Resp BP Pulse Ox 97.7 F 89 16 108/56 L 100 06/07/17 19:18 06/07/17 19:18 06/07/17 19:18 06/07/17 19:18 06/07/17 19:18
[2017-06-07 20:00] LABS: APPEARANCE,URINE CLEAR; BILIRUBIN,URINE NEGATIVE (NEGATIVE); COLOR,URINE STRAW; GLUCOSE, URINE 500 mg/dL (NEGATIVE); KETONES,URINE 100 mg/dL (NEGATIVE); URINE SPECIFIC GRAVITY 1.034
[2017-06-07 20:01] LABS: PROTEIN,URINE NEGATIVE (NEGATIVE); UROBILINOGEN,URINE NEGATIVE mg/dL (<2.0)
[2017-06-07 20:02] LABS: LEUKOCYTE ESTERASE,URINE NEGATIVE (NEGATIVE); NITRITE,URINE NEGATIVE (NEGATIVE)
[2017-06-07 20:21] LABS: VENOUS BLOOD BASE EXCESS 1.7 mmol/L; VENOUS BLOOD HCO3 27.8 mmol/L (20-32); VENOUS BLOOD PCO2 49.3 mmHg (35-63); VENOUS BLOOD PH 7.37 (7.30-7.42)
[2017-06-07 20:27] LABS: ABSOLUTE EOSINOPHILS # (AUTO) 0.2 10^3/uL (0.0-0.6); ABSOLUTE LYMPHOCYTES (AUTO) 1.9 10^3/uL (0.5-4.7); ABSOLUTE MONOCYTES (AUTO) 0.5 10^3/uL (0.1-1.4); ABSOLUTE NEUT (AUTO) 2.9 10^3/uL (1.7-8.2); BASOPHILS % (AUTO) 0.8 % (0-2); EOSINOPHILS % (AUTO) 3.1 % (0-6); HEMATOCRIT 41.6 % (36.0-47.0); HEMOGLOBIN 14.1 g/dL (12.0-15.5); LYMPHOCYTES % (AUTO) 34.3 % (13-45); MEAN CORPUSCULAR HEMOGLOBIN 32.4 pg (27.0-33.4); MEAN CORPUSCULAR VOLUME 95 fl (80-97); MONOCYTES % (AUTO) 9.6 % (3-13); PLATELET COUNT 170 10^3/uL (150-450); RED BLOOD COUNT 4.36 10^6/uL (3.72-5.28); RED CELL DISTRIBUTION WIDTH 15.1 % (11.5-14.0); SEGMENTED NEUTROPHILS % (AUTO) 52.2 % (42-78); TOTAL CELLS COUNTED % (AUTO) 100 %; WHITE BLOOD COUNT 5.5 10^3/uL (4.0-10.5)
[2017-06-07 20:35] LABS: ALANINE AMINOTRANSFERASE 41 U/L (9-52); ALKALINE PHOSPHATASE 99 U/L (38-126); ANION GAP 10 (5-19); ASPARTATE AMINO TRANSFERASE 74 U/L (14-36); BILIRUBIN,DIRECT 0.3 mg/dL (0.0-0.4); BILIRUBIN,TOTAL 0.4 mg/dL (0.2-1.3); BLOOD UREA NITROGEN 17 mg/dL (7-20); CALCIUM 9.6 mg/dL (8.4-10.2); CARBON DIOXIDE 32 mmol/L (22-30); CHLORIDE 89 mmol/L (98-107); POTASSIUM 4.5 mmol/L (3.6-5.0); SODIUM 131.4 mmol/L (137-145); TOTAL PROTEIN 6.1 g/dL (6.3-8.2)
[2017-06-07 20:43] LABS: GLUCOSE 620 mg/dL (75-110)
--- NOTE | 2017-06-07 20:46 | RADIOLOGY REPORT (SQ) ---
EXAM DESCRIPTION: T SPINE AP/LAT COMPLETED DATE/TIME: 06/07/2017 8:37 pm REASON FOR STUDY: fall back pain COMPARISON: None. NUMBER OF VIEWS: Two views. TECHNIQUE: AP and lateral radiographic images acquired of the thoracic spine. LIMITATIONS: None. FINDINGS: MINERALIZATION: Normal. ALIGNMENT: Normal. No scoliosis. VERTEBRAE: No fracture or bone lesion. Maintained height, normal segmentation. DISCS: No significant loss of height or significant narrowing. No large osteophytes. HARDWARE: None in the spine. MEDIASTINUM AND SOFT TISSUES: Normal heart size and aortic contour. No soft tissue abnormality. VISUALIZED LUNG GARCIA: Clear. OTHER: No other significant finding. IMPRESSION: NO SIGNIFICANT RADIOGRAPHIC FINDING IN THE THORACIC SPINE. TECHNICAL DOCUMENTATION: JOB ID: [id number] [employer] All Rights Reserved Reading location - IP/workstation name: [email or web address]
--- NOTE | 2017-06-07 20:47 | RADIOLOGY REPORT (SQ) ---
EXAM DESCRIPTION: L SPINE WHOLE COMPLETED DATE/TIME: 06/07/2017 8:37 pm REASON FOR STUDY: fall back pain COMPARISON: None. NUMBER OF VIEWS: Five views including obliques. TECHNIQUE: AP, lateral, oblique, and sacral radiographic images acquired of the lumbar spine. LIMITATIONS: None. FINDINGS: MINERALIZATION: Normal. SEGMENTATION: Normal. No transitional anatomy. ALIGNMENT: Normal. VERTEBRAE: Maintained height. No fracture or worrisome bone lesion. DISCS: Preserved height. No significant osteophytes or end plate irregularity. POSTERIOR ELEMENTS: Pedicles and facets are intact. No pars defect or posterior arch defects. HARDWARE: None in the spine. PARASPINAL SOFT TISSUES: Normal. PELVIS: Intact as visualized. No fractures or worrisome bone lesions. SI joints intact. OTHER: No other significant finding. IMPRESSION: NORMAL 5 VIEW LUMBAR SPINE. TECHNICAL DOCUMENTATION: JOB ID: [id number] [employer]- All Rights Reserved Reading location - IP/workstation name: [email or web address]
[2017-06-07] MEDS ORDERED: RINGERS SOLUTION,LACTATED 1,000 ML IV ONE (20:58)
[2017-06-07] MEDS ORDERED: INSULIN REG, HUMAN 100 UNIT/ML 3 ML VIAL (PYX) IV ONE (20:58)
[2017-06-07] MEDS ORDERED: ACETAMINOPHEN 325 MG TABLET PO ONE (21:23)
[2017-06-07] MEDS ORDERED: LIDOCAINE 5% (700 MG) TRANSDERMAL ADH..PATCH TP ONE (21:23)
[2017-06-07] MEDS ORDERED: INSULIN REG, HUMAN 100 UNIT/ML 3 ML VIAL (PYX) SUBCUT ONE ×2 (22:24→23:12)
--- NOTE | 2017-06-07 23:27 | ER Document Report ---
ED General - General Chief Complaint: High Blood Sugar Stated Complaint: HIGH BLOOD SUGAR Time Seen by Provider: 06/07/17 19:26 Mode of Arrival: Ambulatory Notes: 26 year old type 1 diabetic presents to the ED complaining of blood sugars that have been reading over 400 for the entire day since she ran out of insulin yesterday. She admits one episode of vomiting, denies abdominal pain, denies blurred vision, denies increased urination, admits constantly increased thirst. Also states that she was chasing her son down the porch steps and she slipped and fell backwards and landed on her back, complains of 5 out of 5 pain of her back. States it hurts diffusely from the top of her thoracic spine down to her buttocks. Denies numbness, tingling, weakness, loss of bowel or bladder dysfunction or difficulty walking. TRAVEL OUTSIDE OF THE [place] IN LAST 30 DAYS: No - Related Data Allergies/Adverse Reactions: aspirin Allergy (Mild, Verified 05/08/17 17:30) Hives ibuprofen Allergy (Mild, Verified 05/08/17 17:30) Hives tramadol Allergy (Mild, Verified 05/08/17 17:30) Hives ketorolac [From Toradol] Allergy (Verified 05/08/17 17:30) Past Medical History - General Information source: Patient - Social History Smoking Status: Current Every Day Smoker Chew tobacco use (# tins/day): No Smoking Education Provided: Yes Frequency of alcohol use: Occasional Drug Abuse: None Family History: Reviewed & Not Pertinent, Malignancy, Thyroid Disfunction - Thyroid cancer Patient has suicidal ideation: No Patient has homicidal ideation: No - Past Medical History Cardiac Medical History: Denies: Hx Congestive Heart Failure, Hx DVT, Hx Heart Attack, Hx Hypercholesterolemia, Hx Hypertension, Hx Pulmonary Embolism Pulmonary Medical History: Denies: Hx Asthma, Hx COPD Neurological Medical History: Denies: Hx Seizures Endocrine Medical History: Reports: Hx Diabetes Mellitus Type 1 - Insulin- dependent, metformin, lantus, and novalog. Denies: Hx Hyperthyroidism, Hx Hypothyroidism Renal/ Medical History: Reports: Hx Kidney Stones, Hx Ovarian Cysts. Denies: Hx Peritoneal Dialysis GI Medical History: Reports: Hx Gastroesophageal Reflux Disease. Denies: Hx Cirrhosis, Hx Hepatitis Musculoskeltal Medical History: Denies Hx Arthritis, Reports Hx Musculoskeletal Deformity, Reports Hx Musculoskeletal Trauma Skin Medical History: Denies Hx Eczema, Denies Hx Psoriasis Psychiatric Medical History: Reports: Hx Anxiety Denies: Hx Depression Infectious Medical History: Denies: Hx Hepatitis Past Surgical History: Reports: Hx Cholecystectomy, Hx Oral Surgery - Dental surgery, Hx Tubal Ligation, Other - Incision and drainage of multiple perirectal abscesses - Immunizations Hx Diphtheria, Pertussis, Tetanus Vaccination: Yes - 2016 Review of Systems - Review of Systems Constitutional: See HPI - Increased blood sugar. EENT: No symptoms reported Gastrointestinal: See HPI, Vomiting Musculoskeletal: See HPI, Back pain -: Yes All other systems reviewed and negative Physical Exam - Vital signs Vitals: Temp Pulse Resp BP Pulse Ox 97.7 F 89 16 108/56 L 100 06/07/17 19:18 06/07/17 19:18 06/07/17 19:18 06/07/17 19:18 06/07/17 19:18 Interpretation: Normal - Notes Notes: GENERAL: Alert, interacts well. No acute distress. HEAD: Normocephalic, atraumatic EYES: Pupils equal, round and reactive to light, extraocular movements intact. ENT: Oral mucosa moist, tongue midline. NECK: Full range of motion, supple, trachea midline. LUNGS: Clear to auscultation bilaterally, no wheezes, rales or rhonchi, no respiratory distress. HEART: Regular rate and rhythm, no murmurs, gallops, rubs. ABDOMEN: Soft, nontender, nondistended, bowel sounds present in all 4 quadrants. BACK: No evidence of trauma however patient winces when I touch every single vertebrae from T1 down to her sacrum. There are no step-offs or deformities, there are no abrasions or erythema. EXTREMITIES: Moves all 4 extremities spontaneously, no edema, radial and dorsalis pedis pulses 2/4 bilaterally. No cyanosis. NEUROLOGICAL: Alert and oriented x3, normal speech, biceps and patellar DTRs 2+ bilaterally. No saddle anesthesia. PSYCH: Normal mood, normal affect. SKIN: Warm, Dry, normal turgor, no rashes or lesions noted. Course - Re-evaluation Re-evalutation: 06/07/17 23:13 CBC unremarkable, venous blood gas does not show any acidosis, chemistries show pseudohyponatremia with a sodium of 131.4 and a glucose of 628, patient is not gapped, anion gap is 10, CO2 is normal at 32 that is actually elevated, there is no renal failure, potassium normal at 4.5, urinalysis shows 100 ketones, no sign of infection. Thoracic and lumbar spine x-rays were performed and found to be negative for acute fracture or malalignment. Patient has been given 2 fluid boluses and multiple boluses of insulin. Patient 's blood sugars coming down nicely. Patient is reminded that she can get insulin without a prescription at multiple pharmacies, [facility] not [facility] even though that is where she normally uses. Patient will have her usual insulin refilled on Friday. There is no evidence of DKA. Lidocaine patches were placed on her back for pain control and she was given acetaminophen as well. 06/08/17 00:19 Repeat chemistries show improving sodium 132.4, potassium is slightly decreased at 3.9, there is still no anion gap, CO2 is 26. Glucose is 289. No abnormalities at this time that would require return to the hospital. - Vital Signs Vital signs: Temp Pulse Resp BP Pulse Ox 97.8 F 76 16 93/57 L 96 06/07/17 23:39 06/07/17 23:39 06/07/17 23:39 06/07/17 23:39 06/07/17 23:39 - Laboratory Result Diagrams: 06/07/17 19:26 06/07/17 23:15 Laboratory results interpreted by me: 06/07/17 06/07/17 06/07/17 19:26 19:26 19:29 RDW 15.1 H Sodium 131.4 L Chloride 89 L Carbon Dioxide 32 H Creatinine Glucose 620 H* POC Glucose AST 74 H Total Protein 6.1 L Urine Glucose (UA) 500 H Urine Ketones 100 H Urine Blood MODERATE H 06/07/17 06/07/17 06/07/17 21:05 22:06 23:13 RDW Sodium Chloride Carbon Dioxide Creatinine Glucose POC Glucose 512 H* 372 H 284 H AST Total Protein Urine Glucose (UA) Urine Ketones Urine Blood 06/07/17 23:15 RDW Sodium 132.4 L Chloride 96 L Carbon Dioxide Creatinine 0.43 L Glucose 289 H POC Glucose AST Total Protein Urine Glucose (UA) Urine Ketones Urine Blood Discharge - Discharge Clinical Impression: Hyperglycemia due to type 1 diabetes mellitus, Ketosis due to diabetes Back contusion Qualifiers: Encounter type: initial encounter Laterality: unspecified laterality Qualified Code(s): S20.229A - Contusion of unspecified back wall of thorax, initial encounter Condition: Stable Disposition: HOME, SELF-CARE Additional Instructions: Take your insulin as prescribed. It is available from any pharmacy without a prescription, so if your pharmacy is out of insulin, please go to another pharmacy to get your insulin. Referrals: DENVER STAFFORD PA-C [Primary Care Provider] - Follow up in 3-5 days Scribe Attestation: 06/08/17 00:19 I personally performed the services described in the documentation, reviewed and edited the documentation which was dictated to the scribe in my presence, and it accurately records my words and actions.
[2017-06-07 23:35] LABS: ANION GAP 10 (5-19); BLOOD UREA NITROGEN 14 mg/dL (7-20); CALCIUM 8.8 mg/dL (8.4-10.2); CARBON DIOXIDE 26 mmol/L (22-30); CHLORIDE 96 mmol/L (98-107); GLUCOSE 289 mg/dL (75-110); POTASSIUM 3.9 mmol/L (3.6-5.0); SODIUM 132.4 mmol/L (137-145)
[2017-06-07 23:41] VITALS: BP 93/57
== END 2017-06-07 23:42 | disposition home or self-care (01) ==
LOC: ER 19:14
DX: E10.10 Type 1 diabetes mellitus with ketoacidosis without coma (principal); T38.3X6A Underdosing of insulin and oral hypoglycemic [antidiabetic] drugs, initial encounter; Z91.128 Patient's intentional underdosing of medication regimen for other reason; Z91.14 Patient's other noncompliance with medication regimen; S20.229A Contusion of unspecified back wall of thorax, initial encounter; W10.8XXA Fall (on) (from) other stairs and steps, initial encounter; Y93.89 Activity, other specified; F17.200 Nicotine dependence, unspecified, uncomplicated; R11.10 Vomiting, unspecified; Z88.5 Allergy status to narcotic agent; Z88.6 Allergy status to analgesic agent
CPT/HCPCS: 99284; 96360; 36415; 82962; 85025; 80048; 80053; 81001; 82803; 72110; 72070; J3490 ×2; J1815; J7030; J7120

== ENCOUNTER → 2017-06-11 | Outpatient (CLI) | payer MEDICAID ==
[2017-06-11 16:22] LABS: ALANINE AMINOTRANSFERASE 64 U/L (9-52); ALBUMIN 3.9 g/dL (3.5-5.0); ALKALINE PHOSPHATASE 98 U/L (38-126); ANION GAP 10 (5-19); ASPARTATE AMINO TRANSFERASE 62 U/L (14-36); BILIRUBIN,DIRECT 0.2 mg/dL (0.0-0.4); BILIRUBIN,TOTAL 0.3 mg/dL (0.2-1.3); BLOOD UREA NITROGEN 20 mg/dL (7-20); CALCIUM 9.2 mg/dL (8.4-10.2); CARBON DIOXIDE 28 mmol/L (22-30); CHLORIDE 91 mmol/L (98-107); POTASSIUM 5.3 mmol/L (3.6-5.0); SODIUM 128.6 mmol/L (137-145); TOTAL PROTEIN 5.8 g/dL (6.3-8.2)
[2017-06-11 16:46] LABS: GLUCOSE 744 mg/dL (75-110)
== END ==
LOC: OD 15:22
PROVIDERS: ATTEND Physician Assistant
DX: R60.9 Edema, unspecified (principal)
CPT/HCPCS: 36415; 80053

== ENCOUNTER 2017-06-17 11:10 | Emergency (ER) | payer MEDICAID ==
--- NOTE | 2017-06-17 12:21 | ER Document Report ---
ED Medical Screen (RME) - General Chief Complaint: Chest Pain Stated Complaint: CHEST PAIN Time Seen by Provider: 06/17/17 12:20 Mode of Arrival: Ambulatory Information source: Patient Notes: 26 yo type 1 DM, smoker, hx hyponatremia female with 40 pound generalized fluid weight gain in fluid 1.5 weeks ago, Dr. Davila at [facility] put her on Lasix 20mg daily, not helping gained since then. No hx CAD, CHF. No chest pain, just uncomfortable with the extra weight. The weight pushes on me at night making me uncomfortable. No SOB, no fever, no recent illness, ran out of insulin on 06/11 but has it now. TRAVEL OUTSIDE OF THE [place] IN LAST 30 DAYS: No - Related Data Allergies/Adverse Reactions: aspirin Allergy (Mild, Verified 06/16/17 17:03) Hives ibuprofen Allergy (Mild, Verified 06/16/17 17:03) Hives tramadol Allergy (Mild, Verified 06/16/17 17:03) Hives ketorolac [From Toradol] Allergy (Verified 06/16/17 17:03) Past Medical History - Social History Family history: Reviewed & Not Pertinent - Past Medical History Cardiac Medical History: Denies: Hx Congestive Heart Failure, Hx DVT, Hx Heart Attack, Hx Hypercholesterolemia, Hx Hypertension, Hx Pulmonary Embolism Pulmonary Medical History: Denies: Hx Asthma, Hx COPD Neurological Medical History: Denies: Hx Seizures Endocrine Medical History: Reports: Hx Diabetes Mellitus Type 1 - Insulin- dependent, metformin, lantus, and novalog. Denies: Hx Hyperthyroidism, Hx Hypothyroidism Renal/ Medical History: Reports: Hx Kidney Stones, Hx Ovarian Cysts. Denies: Hx Peritoneal Dialysis GI Medical History: Reports: Hx Gastroesophageal Reflux Disease. Denies: Hx Cirrhosis, Hx Hepatitis Musculoskeltal Medical History: Denies Hx Arthritis, Reports Hx Musculoskeletal Deformity, Reports Hx Musculoskeletal Trauma Skin Medical History: Denies Hx Eczema, Denies Hx Psoriasis Psychiatric Medical History: Reports: Hx Anxiety Denies: Hx Depression Infectious Medical History: Denies: Hx Hepatitis Past Surgical History: Reports: Hx Cholecystectomy, Hx Oral Surgery - Dental surgery, Hx Tubal Ligation, Other - Incision and drainage of multiple perirectal abscesses - Immunizations Hx Diphtheria, Pertussis, Tetanus Vaccination: Yes - 2016 History of Influenza Vaccine for 12/2016 - 05/2017 Season: Refused Physical Exam - Vital signs Vitals: Temp Pulse Resp BP Pulse Ox 98.2 F 88 18 121/75 100 06/17/17 11:21 06/17/17 11:21 06/17/17 11:21 06/17/17 11:21 06/17/17 11:21 Course - Vital Signs Vital signs: Temp Pulse Resp BP Pulse Ox 98.2 F 88 18 121/75 100 06/17/17 11:21 06/17/17 11:21 06/17/17 11:21 06/17/17 11:21 06/17/17 11:21
[2017-06-17 12:47] LABS: ABSOLUTE BASOPHILS # (AUTO) 0.1 10^3/uL (0.0-0.2); ABSOLUTE EOSINOPHILS # (AUTO) 0.2 10^3/uL (0.0-0.6); ABSOLUTE LYMPHOCYTES (AUTO) 2.9 10^3/uL (0.5-4.7); ABSOLUTE MONOCYTES (AUTO) 0.7 10^3/uL (0.1-1.4); ABSOLUTE NEUT (AUTO) 5.5 10^3/uL (1.7-8.2); BASOPHILS % (AUTO) 1.3 % (0-2); EOSINOPHILS % (AUTO) 2.2 % (0-6); HEMATOCRIT 38.6 % (36.0-47.0); LYMPHOCYTES % (AUTO) 30.6 % (13-45); MEAN CORPUSCULAR HEMOGLOBIN 31.9 pg (27.0-33.4); MEAN CORPUSCULAR HGB CONC 33.7 g/dL (32.0-36.0); MEAN CORPUSCULAR VOLUME 95 fl (80-97); MONOCYTES % (AUTO) 7.9 % (3-13); PLATELET COUNT 294 10^3/uL (150-450); RED BLOOD COUNT 4.07 10^6/uL (3.72-5.28); RED CELL DISTRIBUTION WIDTH 15.5 % (11.5-14.0); TOTAL CELLS COUNTED % (AUTO) 100 %; WHITE BLOOD COUNT 9.4 10^3/uL (4.0-10.5)
--- NOTE | 2017-06-17 13:00 | RADIOLOGY REPORT (SQ) ---
EXAM DESCRIPTION: CHEST 2 VIEWS COMPLETED DATE/TIME: 06/17/2017 12:47 pm REASON FOR STUDY: swelling COMPARISON: 04/23/2016 EXAM PARAMETERS: NUMBER OF VIEWS: two views TECHNIQUE: Digital Frontal and Lateral radiographic views of the chest acquired. RADIATION DOSE: NA LIMITATIONS: none FINDINGS: LUNGS AND PLEURA: No opacities, masses or pneumothorax. No pleural effusion. MEDIASTINUM AND HILAR STRUCTURES: No masses or contour abnormalities. HEART AND VASCULAR STRUCTURES: Heart normal size. No evidence for failure. BONES: No acute findings. HARDWARE: None in the chest. OTHER: No other significant finding. IMPRESSION: NO ACUTE RADIOGRAPHIC FINDING IN THE CHEST. TECHNICAL DOCUMENTATION: JOB ID: [id number] [employer]- All Rights Reserved Reading location - IP/workstation name: [email or web address]
--- NOTE | 2017-06-17 13:02 | EKG REPORT ---
SEVERITY:- NORMAL ECG - SINUS RHYTHM : Confirmed by: Gurdeep Christensen MD 17-Jun-2017 13:01:11
[2017-06-17 13:05] LABS: ALANINE AMINOTRANSFERASE 121 U/L (9-52); ALBUMIN 4.2 g/dL (3.5-5.0); ALKALINE PHOSPHATASE 104 U/L (38-126); ANION GAP 5 (5-19); ASPARTATE AMINO TRANSFERASE 125 U/L (14-36); BILIRUBIN,DIRECT 0.2 mg/dL (0.0-0.4); BILIRUBIN,TOTAL 0.4 mg/dL (0.2-1.3); BLOOD UREA NITROGEN 17 mg/dL (7-20); CALCIUM 10.1 mg/dL (8.4-10.2); CARBON DIOXIDE 29 mmol/L (22-30); CHLORIDE 104 mmol/L (98-107); CREATINE KINASE 25 U/L (30-135); GLUCOSE 48 mg/dL (75-110); POTASSIUM 4.4 mmol/L (3.6-5.0); SODIUM 138.4 mmol/L (137-145); TOTAL PROTEIN 6.7 g/dL (6.3-8.2)
[2017-06-17 13:08] LABS: APPEARANCE,URINE CLEAR; BILIRUBIN,URINE NEGATIVE (NEGATIVE); COLOR,URINE YELLOW; GLUCOSE, URINE >=500 mg/dL (NEGATIVE); KETONES,URINE NEGATIVE (NEGATIVE); LEUKOCYTE ESTERASE,URINE NEGATIVE (NEGATIVE); NITRITE,URINE NEGATIVE (NEGATIVE); PROTEIN,URINE NEGATIVE (NEGATIVE); URINE SPECIFIC GRAVITY 1.014; UROBILINOGEN,URINE NEGATIVE mg/dL (<2.0)
[2017-06-17 13:17] LABS: CREATINE KINASE MB 0.24 ng/mL (<4.55); NT PRO BNP 369 pg/mL (<125)
[2017-06-17 13:20] LABS: TROPONIN I < 0.012 ng/mL
--- NOTE | 2017-06-17 13:26 | ER Document Report ---
ED General - General Mode of Arrival: Ambulatory Information source: Patient TRAVEL OUTSIDE OF THE [place] IN LAST 30 DAYS: No <ZHANE AVILES - Last Filed: 06/17/17 15:03> <ALCIDES NICHOLSON - Last Filed: 06/17/17 15:15> - General Chief Complaint: Chest Pain Stated Complaint: CHEST PAIN Time Seen by Provider: 06/17/17 12:20 Notes: Patient is a 26-year-old female with a history of type 1 diabetes presents emergency department complaining of chest discomfort and shortness of breath due to rapid weight gain onset 1 1/2 weeks ago. Patient states that she has gained a total of 40 pounds over the last 1 1/2 weeks. Patient mentions visiting Dr. Stafford 6 days ago and prescribed 20 mg of Lasix 1x daily further stating the Lasix has not worked. Patient states that her chest pressure is exacerbated when supine and relived when sitting up. Patient denies any vomiting or recent long trips. Patient was sent from her doctors office to have an ekg performed. (ZHANE AVILES) - Related Data Allergies/Adverse Reactions: aspirin Allergy (Mild, Verified 06/16/17 17:03) Hives ibuprofen Allergy (Mild, Verified 06/16/17 17:03) Hives tramadol Allergy (Mild, Verified 06/16/17 17:03) Hives ketorolac [From Toradol] Allergy (Verified 06/16/17 17:03) Past Medical History - General Information source: Patient - Social History Smoking Status: Current Every Day Smoker Family History: Reviewed & Not Pertinent, Malignancy, Thyroid Disfunction - Thyroid cancer Patient has suicidal ideation: No Patient has homicidal ideation: No Endocrine Medical History: Reports: Hx Diabetes Mellitus Type 1 - Insulin- dependent, metformin, lantus, and novalog Renal/ Medical History: Reports: Hx Kidney Stones, Hx Ovarian Cysts GI Medical History: Reports: Hx Gastroesophageal Reflux Disease Musculoskeltal Medical History: Reports Hx Musculoskeletal Deformity, Reports Hx Musculoskeletal Trauma Psychiatric Medical History: Reports: Hx Anxiety Past Surgical History: Reports: Hx Cholecystectomy, Hx Oral Surgery - Dental surgery, Hx Tubal Ligation, Other - Incision and drainage of multiple perirectal abscesses - Immunizations Hx Diphtheria, Pertussis, Tetanus Vaccination: Yes - 2015 <ZHANE AVILES - Last Filed: 06/17/17 15:03> Review of Systems - Review of Systems Constitutional: See HPI, Weight gain EENT: No symptoms reported Cardiovascular: See HPI, Chest pain Respiratory: No symptoms reported Gastrointestinal: No symptoms reported Genitourinary: No symptoms reported Female Genitourinary: No symptoms reported Musculoskeletal: No symptoms reported Skin: No symptoms reported Hematologic/Lymphatic: No symptoms reported Neurological/Psychological: No symptoms reported -: Yes All other systems reviewed and negative <ZHANE AVILES - Last Filed: 06/17/17 15:03> Physical Exam <ZHANE AVILES - Last Filed: 06/17/17 15:03> <ALCIDES NICHOLSON - Last Filed: 06/17/17 15:15> - Vital signs Vitals: Temp Pulse Resp BP Pulse Ox 98.2 F 88 18 121/75 100 06/17/17 11:21 06/17/17 11:21 06/17/17 11:21 06/17/17 11:21 06/17/17 11:21 - Notes Notes: GENERAL: Alert, interacts well. No acute distress. HEAD: Normocephalic, atraumatic. EYES: Pupils equal, round, and reactive to light. Extraocular movements intact. ENT: Oral mucosa moist, tongue midline. NECK: Full range of motion. Supple. Trachea midline. LUNGS: Clear to auscultation bilaterally, no wheezes, rales, or rhonchi. No respiratory distress. HEART: Regular rate and rhythm. No murmurs, gallops, or rubs. ABDOMEN: Soft, Moderate distention, bruising on the abdomen consistent with insulin use. Bowel sounds present in all 4 quadrants. EXTREMITIES: Moves all 4 extremities spontaneously. 3+ edema to the level of the thighs, nonpitting. NEUROLOGICAL: Alert and oriented x3. Normal speech. PSYCH: Normal affect, normal mood. SKIN: Warm and dry. (ZHANE AVILES) Course - Laboratory Result Diagrams: 06/17/17 12:36 06/17/17 12:36 <ZHANE AVILES - Last Filed: 06/17/17 15:03> - Laboratory Result Diagrams: 06/17/17 12:36 06/17/17 12:36 <ALCIDES NICHOLSON - Last Filed: 06/17/17 15:15> - Re-evaluation Re-evalutation: 06/17/17 15:05 CBC unremarkable, CMP shows low glucose of 48, patient was fed, no renal failure , LFTs mildly elevated with an AST of 125 and an ALT of 121, albumin normal, cardiac enzymes negative, proBNP only somewhat elevated at 369, urinalysis shows greater than 500 of glucose consistent with her history of uncontrolled diabetes but she is not spilling any protein into her urine. test is negative. Chest x-ray does not show any acute process, no evidence of heart failure. Clinical examination does not reveal any rales in her lungs consistent with heart failure. Bilateral venous Doppler ultrasound does not show any DVT. Patient states that her primary care provider told her that she should ask for IV Lasix as it may work better. At this point I do not see any evidence of acute congestive heart failure that would require her to stay in the hospital however a stronger dose of Lasix may help. I have also added thyroid function tests onto her blood work that is already in the lab and we will call her if these are abnormal. Her primary care provider Denver Stafford you should also follow-up with this as an outpatient. We also recommend to the patient that she had a 2D echo performed as an outpatient at some point, there may be a degree of right-sided congestive heart failure however I do not see anything that requires emergent admission at this time. Patient is discharged home, recommended to keep taking the oral Lasix, use compression stockings and elevate her legs as much as possible. (ALCIDES NICHOLSON) - Vital Signs Vital signs: Temp Pulse Resp BP Pulse Ox 98.2 F 88 18 121/75 100 06/17/17 11:21 06/17/17 11:21 06/17/17 11:21 06/17/17 11:21 06/17/17 11:21 - Laboratory Laboratory results interpreted by me: 06/17/17 06/17/17 06/17/17 12:30 12:36 12:36 RDW 15.5 H Creatinine 0.41 L Glucose 48 L AST 125 H ALT 121 H Creatine Kinase 25 L NT-Pro-B Natriuret Pep Urine Glucose (UA) >=500 H 06/17/17 12:36 RDW Creatinine Glucose AST ALT Creatine Kinase NT-Pro-B Natriuret Pep 369 H Urine Glucose (UA) - EKG Interpretation by Me Additional EKG results interpreted by me: 06/17/17 15:10 EKG shows sinus rhythm at a rate of 89, normal axis, normal intervals, no ST segment elevations or depressions, no T-wave inversions per my interpretation. ( ALCIDES NICHOLSON) Discharge <ZHANE AVILES - Last Filed: 06/17/17 15:03> <ALCIDES NICHOLSON - Last Filed: 06/17/17 15:15> - Discharge Clinical Impression: Peripheral edema, Elevated LFTs Type 1 diabetes Qualifiers: Diabetes mellitus complication status: without complication Qualified Code(s): E10.9 - Type 1 diabetes mellitus without complications Condition: Stable Disposition: HOME, SELF-CARE Additional Instructions: Today we did not find any evidence of heart attack or fluid buildup in your lungs. There was no blood clot in your legs. We did order thyroid tests, you will need to follow-up with Denver TAPIA to get the results of these tests. We will call you if they are significantly abnormal. If the swelling in your legs continues you will need to have a ultrasound of your heart (echocardiogram probe) performed as an outpatient. Should you develop significantly worsening symptoms especially increasing shortness of breath please return to the emergency department. Referrals: DENVER STAFFORD PA-C [NO LOCAL MD] - Follow up in 3-5 days Scribe Attestation: 06/17/17 15:15 I personally performed the services described in the documentation, reviewed and edited the documentation which was dictated to the scribe in my presence, and it accurately records my words and actions. (ALCIDES NICHOLSON) Scribe Documentation - Scribe Written by Andressa:: Andressa Maurice, 06/17/2017 13:28 acting as scribe for :: Silas <ZHANE AVILES - Last Filed: 06/17/17 15:03>
[2017-06-17] MEDS ORDERED: FUROSEMIDE INJ/PF 40 MG/4 ML SDV IV ONE (14:55)
[2017-06-17 15:31] VITALS: BP 103/63
[2017-06-17 15:36] LABS: FREE T3 2.85 pg/mL (2.77-5.27); FREE T4 (FREE THYROXINE) 0.75 ng/dL (0.78-2.19)
[2017-06-17 15:49] LABS: THYROID STIMULATING HORMONE 2.99 uIU/mL (0.47-4.68)
--- NOTE | 2017-06-18 12:11 | XCELERA REPORT ---
[address] [address] Lower Extremity Venous Evaluation Name: FRIDA ALMANZA Age: 26 yrs Gender: Female : 1990 Patient Status: Emergency Patient Location: ER Study Date: 06/17/2017 02:29 PM Procedure: Color flow and duplex imaging bilaterally of the veins of the lower extremities as well as the Common Femoral veins. Reason For Study: B/L leg swelling, pain, sudden onset Ordering Physician: ALCIDES NICHOLSON Performed By: Luisito Zambrano Right Sided Venous Evaluation Normal vessel filling wall to wall, compression and augmentation as well as Colour flow down to the infrageniculate veins. Left Sided Venous Evaluation Normal vessel filling wall to wall, compression and augmentation as well as Colour flow down to the infrageniculate veins. Interpretation Summary No duplex evidence of DVT or obstruction in the bilateral lower extremities. : ALCIDES NICHOLSON > David Ray
== END 2017-06-17 15:32 | disposition home or self-care (01) ==
LOC: ER 11:10
DX: R60.1 Generalized edema (principal); R79.89 Other specified abnormal findings of blood chemistry; R07.9 Chest pain, unspecified; E10.9 Type 1 diabetes mellitus without complications; F17.200 Nicotine dependence, unspecified, uncomplicated; Z79.4 Long term (current) use of insulin; Z87.442 Personal history of urinary calculi; Z90.49 Acquired absence of other specified parts of digestive tract; Z98.51 Tubal ligation status; Z88.6 Allergy status to analgesic agent
CPT/HCPCS: 93005; 99285; 96374; 36415; 84439; 82553; 82550; 84443; 85025; 81025; 80053; 81001; 84484; 84481; 83880; 93970 ×2; 71046; 93010; J1940

== ENCOUNTER 2017-07-19 18:01 | Inpatient (IN) | payer MEDICAID ==
[2017-07-19] MEDS ORDERED: NORMAL SALINE 1000 ML 1,000 ML IV PRN (18:28)
--- NOTE | 2017-07-19 18:31 | ER Document Report ---
ED Medical Screen (RME) - General Chief Complaint: High Blood Sugar Stated Complaint: WEAKNESS Time Seen by Provider: 07/19/17 18:22 Notes: RAPID MEDICAL EVALUATION DISCLOSURE I have seen this patient as part of a Rapid Medical Evaluation and, if applicable, placed any initially appropriate orders. The patient will be seen and fully evaluated, including a full history and physical exam, by a provider ( in Main ED or Fast Track) when a room becomes available. 26-year-old female PMH DM DKA here with complaints of body aches headaches abdominal pain nausea ongoing for the past few days. She has been taking her insulin and has not missed any doses. She denies having cough congestion runny nose sore throat diarrhea dysuria frequency. She does not know what may have triggered these symptoms or her hyperglycemia of greater than 400. She denies eating excessive sweets. Exam Tachycardic Mild tachypnea TRAVEL OUTSIDE OF THE [place] IN LAST 30 DAYS: No - Related Data Allergies/Adverse Reactions: aspirin Allergy (Mild, Verified 07/19/17 18:15) Hives ibuprofen Allergy (Mild, Verified 07/19/17 18:15) Hives tramadol Allergy (Mild, Verified 07/19/17 18:15) Hives ketorolac [From Toradol] Allergy (Verified 07/19/17 18:15) Past Medical History - Social History Family history: Reviewed & Not Pertinent - Past Medical History Cardiac Medical History: Denies: Hx Congestive Heart Failure, Hx DVT, Hx Heart Attack, Hx Hypercholesterolemia, Hx Hypertension, Hx Pulmonary Embolism Pulmonary Medical History: Denies: Hx Asthma, Hx COPD Neurological Medical History: Denies: Hx Seizures Endocrine Medical History: Reports: Hx Diabetes Mellitus Type 1 - Insulin- dependent, metformin, lantus, and novalog. Denies: Hx Hyperthyroidism, Hx Hypothyroidism Renal/ Medical History: Reports: Hx Kidney Stones, Hx Ovarian Cysts. Denies: Hx Peritoneal Dialysis GI Medical History: Reports: Hx Gastroesophageal Reflux Disease. Denies: Hx Cirrhosis, Hx Hepatitis Musculoskeltal Medical History: Denies Hx Arthritis, Reports Hx Musculoskeletal Deformity, Reports Hx Musculoskeletal Trauma Skin Medical History: Denies Hx Eczema, Denies Hx Psoriasis Psychiatric Medical History: Reports: Hx Anxiety Denies: Hx Depression Infectious Medical History: Denies: Hx Hepatitis Past Surgical History: Reports: Hx Cholecystectomy, Hx Oral Surgery - Dental surgery, Hx Tubal Ligation, Other - Incision and drainage of multiple perirectal abscesses - Immunizations Hx Diphtheria, Pertussis, Tetanus Vaccination: Yes - 2016 History of Influenza Vaccine for 12/2016 - 05/2017 Season: Refused Physical Exam - Vital signs Vitals: Pulse Resp BP Pulse Ox 117 H 26 H 142/89 H 100 07/19/17 18:23 07/19/17 18:23 07/19/17 18:23 07/19/17 18:23 Course - Vital Signs Vital signs: Temp Pulse Resp BP Pulse Ox 117 H 26 H 142/89 H 100 07/19/17 18:23 07/19/17 18:23 07/19/17 18:23 07/19/17 18:23
[2017-07-19 18:53] LABS: ABSOLUTE BASOPHILS # (AUTO) 0.1 10^3/uL (0.0-0.2); ABSOLUTE EOSINOPHILS # (AUTO) 0.1 10^3/uL (0.0-0.6); ABSOLUTE LYMPHOCYTES (AUTO) 2.4 10^3/uL (0.5-4.7); ABSOLUTE MONOCYTES (AUTO) 0.5 10^3/uL (0.1-1.4); BASOPHILS % (AUTO) 1.1 % (0-2); EOSINOPHILS % (AUTO) 0.8 % (0-6); HEMATOCRIT 49.5 % (36.0-47.0); HEMOGLOBIN 16.2 g/dL (12.0-15.5); LYMPHOCYTES % (AUTO) 30.3 % (13-45); MEAN CORPUSCULAR HEMOGLOBIN 31.4 pg (27.0-33.4); MEAN CORPUSCULAR HGB CONC 32.7 g/dL (32.0-36.0); MEAN CORPUSCULAR VOLUME 96 fl (80-97); PLATELET COUNT 330 10^3/uL (150-450); RED BLOOD COUNT 5.14 10^6/uL (3.72-5.28); RED CELL DISTRIBUTION WIDTH 13.6 % (11.5-14.0); SEGMENTED NEUTROPHILS % (AUTO) 61.8 % (42-78); TOTAL CELLS COUNTED % (AUTO) 100 %
[2017-07-19 19:16] LABS: BLOOD UREA NITROGEN 7 mg/dL (7-20); CALCIUM 8.8 mg/dL (8.4-10.2); CHLORIDE 102 mmol/L (98-107); PHOSPHORUS 3.1 mg/dL (2.5-4.5); POTASSIUM 4.2 mmol/L (3.6-5.0); SODIUM 138.4 mmol/L (137-145)
[2017-07-19 19:29] LABS: VENOUS BLOOD BASE EXCESS -21.8 mmol/L; VENOUS BLOOD HCO3 5.6 mmol/L (20-32)
[2017-07-19 19:33] LABS: GLUCOSE 483 mg/dL (75-110); VENOUS BLOOD PH 7.1 (7.30-7.42)
[2017-07-19 19:34] LABS: CARBON DIOXIDE < 5 mmol/L (22-30); VENOUS BLOOD PCO2 18.6 mmHg (35-63)
[2017-07-19] MEDS ORDERED: INSULIN REG, HUMAN 100 UNIT/ML 3 ML VIAL (PYX) IV ONE (19:42)
[2017-07-19] MEDS ORDERED: POTASSIUM CHLORIDE 20 MEQ/15 ML UDCUP PO ONE (19:42)
[2017-07-19] MEDS ORDERED: HALOPERIDOL LACTATE INJ 5 MG/1 ML VIAL IV ONE (19:47)
[2017-07-19] MEDS ORDERED: RINGERS SOLUTION,LACTATED 1,000 ML IV ONE ×2 (19:47→19:48)
--- NOTE | 2017-07-19 19:52 | ER Document Report ---
ED General - General Chief Complaint: High Blood Sugar Stated Complaint: WEAKNESS Time Seen by Provider: 07/19/17 18:22 Cannot obtain history due to: Uncooperative Notes: Patient is a 26-year-old female with a past medical history of insulin- dependent type 1 diabetes with a history of noncompliance and frequent episodes of diabetic ketoacidosis who presents multiple complaints. The patient reports that she is worried she is in diabetic ketoacidosis. She reports for the past 4 days she has had diffuse body pain, headache, nausea, and felt generally unwell. The patient is somewhat hysterical at time of presentation, crying and has difficulty providing adequate history. She has difficulty telling me what improves or worsens her symptoms. She does state that this feels similar to when she has had diabetic ketoacidosis in the past. TRAVEL OUTSIDE OF THE [place] IN LAST 30 DAYS: No - Related Data Allergies/Adverse Reactions: aspirin Allergy (Mild, Verified 07/19/17 18:15) Hives ibuprofen Allergy (Mild, Verified 07/19/17 18:15) Hives tramadol Allergy (Mild, Verified 07/19/17 18:15) Hives ketorolac [From Toradol] Allergy (Verified 07/19/17 18:15) Past Medical History - General Information source: Patient - Social History Smoking Status: Current Every Day Smoker Chew tobacco use (# tins/day): No Frequency of alcohol use: None Drug Abuse: None Lives with: Spouse/Significant other Family History: Reviewed & Not Pertinent, Malignancy, Thyroid Disfunction - Thyroid cancer Patient has suicidal ideation: No Patient has homicidal ideation: No - Past Medical History Cardiac Medical History: Denies: Hx Congestive Heart Failure, Hx DVT, Hx Heart Attack, Hx Hypercholesterolemia, Hx Hypertension, Hx Pulmonary Embolism Pulmonary Medical History: Denies: Hx Asthma, Hx COPD Neurological Medical History: Denies: Hx Seizures Endocrine Medical History: Reports: Hx Diabetes Mellitus Type 1 - Insulin- dependent, metformin, lantus, and novalog. Denies: Hx Hyperthyroidism, Hx Hypothyroidism Renal/ Medical History: Reports: Hx Kidney Stones, Hx Ovarian Cysts. Denies: Hx Peritoneal Dialysis GI Medical History: Reports: Hx Gastroesophageal Reflux Disease. Denies: Hx Cirrhosis, Hx Hepatitis Musculoskeltal Medical History: Denies Hx Arthritis, Reports Hx Musculoskeletal Deformity, Reports Hx Musculoskeletal Trauma Skin Medical History: Denies Hx Eczema, Denies Hx Psoriasis Psychiatric Medical History: Reports: Hx Anxiety Denies: Hx Depression Infectious Medical History: Denies: Hx Hepatitis Past Surgical History: Reports: Hx Cholecystectomy, Hx Oral Surgery - Dental surgery, Hx Tubal Ligation, Other - Incision and drainage of multiple perirectal abscesses - Immunizations Hx Diphtheria, Pertussis, Tetanus Vaccination: Yes - 2016 Review of Systems - Review of Systems Notes: Constitutional: Negative for fever. HENT: Negative for sore throat. Eyes: Negative for visual changes. Cardiovascular: Negative for chest pain. Respiratory: Negative for shortness of breath. Gastrointestinal: Positive for nausea Genitourinary: Negative for dysuria. Musculoskeletal: Positive for diffuse body pain Skin: Negative for rash. Neurological: Positive for headache 10 point ROS negative except as marked above and in HPI. Physical Exam - Vital signs Vitals: Pulse Resp BP Pulse Ox 117 H 26 H 142/89 H 100 07/19/17 18:23 07/19/17 18:23 07/19/17 18:23 07/19/17 18:23 Interpretation: Tachycardic, Tachypneic Notes: PHYSICAL EXAMINATION: GENERAL: Appears unwell, uncomfortable HEAD: Atraumatic, normocephalic. EYES: Pupils equal round and reactive to light, extraocular movements intact, sclera anicteric, conjunctiva are normal. ENT: nares patent, oropharynx clear without exudates. Moderately dry mucous membranes. NECK: Normal range of motion, supple without lymphadenopathy LUNGS: Breath sounds clear to auscultation bilaterally and equal. No wheezes rales or rhonchi. HEART: Regular rate and rhythm without murmurs ABDOMEN: Soft, nontender, normoactive bowel sounds. No guarding, no rebound. No masses appreciated. EXTREMITIES: Normal range of motion, no pitting or edema. No cyanosis. NEUROLOGICAL: Face symmetric. Tongue protrudes midline. Extraocular motions intact. Pupils are 2 mm and equally reactive. Normal speech. 5 out of 5 strength in both the distal and proximal upper and lower extremities bilaterally. Sensation is grossly intact throughout. PSYCH: Anxious, tearful SKIN: Warm, Dry, normal turgor, no rashes or lesions noted. Course - Re-evaluation Re-evalutation: 07/19/17 19:20 Patient presents tachycardic, screaming and crying, complaining of diffuse body aches and a migraine headache for the past 4 days that has gotten progressively worse. Multiple sick contacts at home with similar illness although the patient reports that she is concerned she is in diabetic ketoacidosis. I have seen this patient on multiple occasions and she is known to be very noncompliant with her insulin regimen. Patient is tachycardic, tachypneic with Kussmaul respirations. She is ill in appearance. Very high suspicion of diabetic ketoacidosis. 2 L of IV fluids have been initiated. Awaiting laboratory results. Patient is critically ill and will require frequent reassessments. 1950-patient's laboratories do show severe diabetic ketoacidosis, pH of 7.19, bicarbonate less than 5, anion gap incalculable, BGL 483. Patient has already received 2 L of IV fluid at this time. She will begin 3rd liter of lactated Ringer's at this time. Will also begin an insulin infusion at 0.14 U/kg/h. Unfortunately do not have potassium IV available in the hospital the patient will be given oral potassium as her current potassium is 4.8 and will require repletion with an insulin infusion. Patient will also be given IV haloperidol for her ongoing migraine headache and mild agitation. Will continue to reassess frequently. 07/19/17 20:23 Patient's headache is improving, heart rate is likewise improving down to 109 currently. She is working through her third liter of fluid and the insulin infusion has begun. I have discussed this case with Dr. Milan Odell who has accepted the patient for admission to the ICU. 07/19/17 21:40 Patient states that she needs to leave as her daughter has been in a motor vehicle accident is currently being life flighted to [facility]. I have emphasized with the patient that while I am very sympathetic that situation, she is extremely ill and that she will if she goes home and does not receive treatment. Upon reviewing her laboratories the patient is currently reconsidering and discussing with her . If she does leave she will need to leave AGAINST MEDICAL ADVICE. - Vital Signs Vital signs: Temp Pulse Resp BP Pulse Ox 98.4 F 102 H 15 101/57 L 100 07/20/17 03:44 07/20/17 03:44 07/20/17 03:44 07/20/17 03:44 07/20/17 03:44 - Laboratory Result Diagrams: 07/19/17 17:38 07/20/17 01:45 Laboratory results interpreted by me: 07/19/17 07/19/17 07/19/17 17:38 17:38 17:38 Hgb 16.2 H Hct 49.5 H VBG pH 7.10 L* VBG pCO2 18.6 L* VBG HCO3 5.6 L Carbon Dioxide < 5 L* Glucose 483 H* Critical Care Note - Critical Care Note Total time excluding time spent on procedures (mins): 36 Comments: Critical care time spent obtaining history from patient or surrogate, discussions with consultants, development of treatment plan with patient or surrogate, evaluation of patient's response to treatment, examination of patient , ordering and performing treatments and interventions, ordering and review of laboratory studies, re-evaluation of patient's condition, ordering and review of radiographic studies and review of old charts Discharge - Discharge Clinical Impression: Noncompliance with diabetes treatment, Body aches, Nausea, Dehydration Diabetic ketoacidosis associated with type 1 diabetes mellitus Qualifiers: Diabetes mellitus complication detail: without coma Qualified Code(s): E10.10 - Type 1 diabetes mellitus with ketoacidosis without coma Condition: Critical Disposition: ADMITTED INPATIENT Admitting Provider: Hospitalist Unit Admitted: ICU
[2017-07-19] MEDS ORDERED: DEXTROSE 50%-WATER 25 GM/50 ML DISP.SYRIN IV PRN (20:23)
[2017-07-19] MEDS ORDERED: DEXTROSE 40% GEL 15 GM TUBE PO PRN ×2 (20:23)
[2017-07-19] MEDS ORDERED: PROMETHAZINE HCL 25 MG TABLET PO PRN (20:23)
[2017-07-19] MEDS ORDERED: ACETAMINOPHEN 325 MG TABLET PO PRN (20:23)
[2017-07-19] MEDS ORDERED: IPRATROPIUM/ALBUTEROL 0.5-2.5 MG/3 ML AMPUL NEB PRN (20:23)
[2017-07-19] MEDS ORDERED: GLUCAGON,HUMAN RECOMB 1 MG INJ IM PRN (20:23)
[2017-07-19] MEDS ORDERED: NORMAL SALINE 100 ML with INSULIN REGULAR, HUMAN 100 UNIT IV PRN ×2 (20:23)
[2017-07-19] MEDS ORDERED: ONDANSETRON HCL INJ/PF 4 MG/2 ML SDV IV PRN (20:23)
[2017-07-19 22:16] LABS: BLOOD UREA NITROGEN 6 mg/dL (7-20); CALCIUM 7.5 mg/dL (8.4-10.2); CHLORIDE 112 mmol/L (98-107); GLUCOSE 262 mg/dL (75-110); POTASSIUM 3.6 mmol/L (3.6-5.0)
[2017-07-19 22:21] LABS: PHOSPHORUS 1.5 mg/dL (2.5-4.5)
[2017-07-19 22:28] LABS: SODIUM 142.5 mmol/L (137-145)
[2017-07-19 22:31] LABS: ANION GAP 24 (5-19)
[2017-07-19 22:33] LABS: CARBON DIOXIDE 7 mmol/L (22-30)
[2017-07-19] MEDS ORDERED: INSULIN REG, HUMAN 100 UNIT/ML 3 ML VIAL (PYX) ONE (22:43)
[2017-07-19] MEDS: HEPARIN SOD (PORCINE) 5,000 UNIT/ML 1 ML SYRINGE SUBCUT SCH (22:44)
[2017-07-19] MEDS: POTASSI CL 20 MEQ/D5-1/2NS 1L 1,000 ML IV PRN (22:46)
[2017-07-20] MEDS ORDERED: PHOSPHORUS #1 250 MG TABLET PO SCH
[2017-07-20 02:05] LABS: ANION GAP 13 (5-19); BLOOD UREA NITROGEN 5 mg/dL (7-20); CALCIUM 7.8 mg/dL (8.4-10.2); CARBON DIOXIDE 12 mmol/L (22-30); CHLORIDE 117 mmol/L (98-107); GLUCOSE 108 mg/dL (75-110); POTASSIUM 3.3 mmol/L (3.6-5.0); SODIUM 141.8 mmol/L (137-145)
--- NOTE | 2017-07-20 03:01 | PDOC H&P ---
History of Present Illness Admission Date/PCP: 07/19/17 20:45 DENVER STAFFORD PA-C Patient complains of: Uncontrolled blood sugar, abdominal pain History of Present Illness: FRIDA ALMANZA is a 26 year old female with history of type 1 diabetes, noncompliance, recurrent DKA and opiate seeking behavior. Presents to the emergency room with polyuria polydipsia abdominal pain nausea and vomiting of gastric content. In the emergency room she is found tachypneic and to have uncontrolled hyperglycemia and undetectable bicarb. She admits medication lifestyle indiscretion. She is placed on IV insulin, fluids and referred to the hospitalist for admission. Past Medical History Cardiac Medical History: Denies: Congestive Heart Failure, DVT, Myocardial Infarction, Hyperlipidema, Hypertension, Pulmonary Embolism Pulmonary Medical History: Denies: Asthma, Chronic Obstructive Pulmonary Disease (COPD) Neurological Medical History: Denies: Seizures Endocrine Medical History: Reports: Diabetes Mellitus Type 1 - Insulin-dependent , metformin, lantus, and novalog Denies: Hyperthyroidism, Hypothyroidism GI Medical History: Reports: Gastroesophageal Reflux Disease Denies: Cirrhosis, Hepatitis Musculoskeltal Medical History: Denies: Arthritis Skin Medical History: Denies: Eczema, Psoriasis Psychiatric Medical History: Denies: Depression Past Surgical History Past Surgical History: Reports: Cholecystectomy, Tubal Ligation, Other - Incision and drainage of multiple perirectal abscesses Social History Information Source: Patient, Emergency Med Personnel, [facility] Records Smoking Status: Current Every Day Smoker Cigarettes Packs Per Day: 1 Number of Years Smokin Last Time Smoked: 07/19/17 Frequency of Alcohol Use: Rare Hx Recreational Drug Use: No Drugs: None Hx Prescription Drug Abuse: No - Advance Directive Resuscitation Status: Full Code Family History Family History: Reviewed & Not Pertinent, Malignancy, Thyroid Disfunction - Thyroid cancer Parental Family History Reviewed: Yes Children Family History Reviewed: Yes Sibling(s) Family History Reviewed.: Yes Medication/Allergy Home Medications: Insulin Aspart [Novolog Insulin 100 Unit/1 ml 10 ml] 10 unit SUBCUT MEALS Insulin Degludec [Tresiba Flextouch U-100] 30 unit SQ QHS 05/08/17 Furosemide [Lasix 20 mg Tablet] 20 mg PO DAILY 06/17/17 Allergies/Adverse Reactions: aspirin Allergy (Mild, Verified 07/19/17 18:15) Hives ibuprofen Allergy (Mild, Verified 07/19/17 18:15) Hives tramadol Allergy (Mild, Verified 07/19/17 18:15) Hives ketorolac [From Toradol] Allergy (Verified 07/19/17 18:15) Review of Systems Constitutional: PRESENT: as per HPI, anorexia, fatigue Eyes: ABSENT: visual disturbances Ears: ABSENT: hearing changes Cardiovascular: ABSENT: chest pain, dyspnea on exertion, edema, orthropnea, palpitations Respiratory: ABSENT: cough, hemoptysis Gastrointestinal: PRESENT: as per HPI, nausea, vomiting Genitourinary: ABSENT: dysuria, hematuria Musculoskeletal: ABSENT: joint swelling Integumentary: ABSENT: rash, wounds Neurological: ABSENT: abnormal gait, abnormal speech, confusion, dizziness, focal weakness, syncope Psychiatric: ABSENT: anxiety, depression, homidical ideation, suicidal ideation Endocrine: ABSENT: cold intolerance, heat intolerance, polydipsia, polyuria Hematologic/Lymphatic: ABSENT: easy bleeding, easy bruising Physical Exam Vital Signs: Temp Pulse Resp BP Pulse Ox 98.1 F 108 H 0 L 105/63 98 07/20/17 00:00 07/20/17 00:00 07/20/17 02:00 07/20/17 01:35 07/20/17 02:00 Intake & Output 07/18/17 07/19/17 07/20/17 11:59 11:59 11:59 Output Total 0 Balance 0 Weight 64.6 kg General appearance: PRESENT: cooperative, disheveled, mild distress, thin Head exam: PRESENT: atraumatic, normocephalic Eye exam: PRESENT: conjunctiva pink, EOMI, PERRLA. ABSENT: scleral icterus Ear exam: PRESENT: normal external ear exam Mouth exam: PRESENT: dry mucosa, neck supple. ABSENT: laceration Teeth exam: PRESENT: edentulous Neck exam: ABSENT: carotid bruit, JVD, lymphadenopathy, thyromegaly Respiratory exam: PRESENT: clear to auscultation adriel. ABSENT: rales, rhonchi, wheezes Cardiovascular exam: PRESENT: RRR. ABSENT: diastolic murmur, rubs, systolic murmur Pulses: PRESENT: normal dorsalis pedis pul Vascular exam: PRESENT: normal capillary refill GI/Abdominal exam: PRESENT: normal bowel sounds, soft, tenderness. ABSENT: distended, guarding, mass, organolmegaly, rebound Rectal exam: PRESENT: deferred Extremities exam: PRESENT: full ROM. ABSENT: calf tenderness, clubbing, pedal edema Neurological exam: PRESENT: alert, awake, oriented to person, oriented to place , oriented to time, oriented to situation, CN II-XII grossly intact. ABSENT: motor sensory deficit Psychiatric exam: PRESENT: depressed Skin exam: PRESENT: dry, intact, warm. ABSENT: cyanosis, rash Results Laboratory Results: 07/20/17 01:45 07/19/17 07/19/17 07/20/17 21:45 21:45 01:45 Sodium 142.5 141.8 Potassium 3.6 3.3 L Chloride 112 H 117 H Carbon Dioxide 7 L* 12 L Anion Gap 24 H 13 BUN 6 L 5 L Creatinine 0.50 L 0.34 L Est GFR ( Amer) > 60 > 60 Est GFR (Non-Af Amer) > 60 > 60 Glucose 262 H 108 Calcium 7.5 L 7.8 L Phosphorus 1.5 L Magnesium 1.5 L Assessment & Plan - Diagnosis (1) Diabetic ketoacidosis associated with type 1 diabetes mellitus Qualifiers: Diabetes mellitus complication detail: without coma Qualified Code(s): E10.10 - Type 1 diabetes mellitus with ketoacidosis without coma Plan: Diabetic ketoacidosis patient has had some degree of polyuria polydipsia with nausea and uncontrolled hyperglycemia with supporting labs. Patient will receive IV fluids IV insulin serial chemistries every 6 hours for evaluation for electrolyte repletion. Continued evaluation for underlying cause if not found Patient will require diabetic education and consideration of mental health evaluation. (2) Hypophosphatemia Is this a current diagnosis for this admission?: Yes Plan: K-Phos every 4 hours 6 doses and reevaluation (3) Hypomagnesemia Is this a current diagnosis for this admission?: Yes Plan: Secondary to #1, mag sulfate ordered (4) Dehydration Is this a current diagnosis for this admission?: Yes Plan: IV fluid challenge underway (5) Noncompliance with diabetes treatment Is this a current diagnosis for this admission?: Yes Plan: Education - Time Time Spent: 50 to 70 Minutes - Inpatient Certification Medical Necessity: Need Close Monitoring Due to Risk of Patient Decompensation
[2017-07-20] MEDS: PHOSPHORUS #1 250 MG TABLET PO SCH ×5 (03:04→19:22)
[2017-07-20] MEDS: MAGNESIUM SULFATE/D5W 1 GM/100 ML RTUPB IV SCH ×2 (03:04→04:17)
[2017-07-20] MEDS: DEXTROSE 50%-WATER 25 GM/50 ML DISP.SYRIN IV PRN (03:09)
[2017-07-20] MEDS: POTASSI CL 20 MEQ/D5-1/2NS 1L 1,000 ML IV PRN ×4 (03:29→19:22)
[2017-07-20] MEDS: HEPARIN SOD (PORCINE) 5,000 UNIT/ML 1 ML SYRINGE SUBCUT SCH ×3 (05:23→21:11)
[2017-07-20 06:39] LABS: ABSOLUTE EOSINOPHILS # (AUTO) 0.1 10^3/uL (0.0-0.6); ABSOLUTE LYMPHOCYTES (AUTO) 2.9 10^3/uL (0.5-4.7); ABSOLUTE MONOCYTES (AUTO) 0.4 10^3/uL (0.1-1.4); BASOPHILS % (AUTO) 0.7 % (0-2); HEMATOCRIT 37.9 % (36.0-47.0); LYMPHOCYTES % (AUTO) 44.7 % (13-45); MEAN CORPUSCULAR HEMOGLOBIN 31.3 pg (27.0-33.4); MEAN CORPUSCULAR HGB CONC 33.7 g/dL (32.0-36.0); MEAN CORPUSCULAR VOLUME 93 fl (80-97); MONOCYTES % (AUTO) 6.3 % (3-13); PLATELET COUNT 223 10^3/uL (150-450); RED BLOOD COUNT 4.08 10^6/uL (3.72-5.28); RED CELL DISTRIBUTION WIDTH 13.4 % (11.5-14.0); SEGMENTED NEUTROPHILS % (AUTO) 46.3 % (42-78); TOTAL CELLS COUNTED % (AUTO) 100 %; WHITE BLOOD COUNT 6.5 10^3/uL (4.0-10.5)
[2017-07-20 06:43] LABS: HEMOGLOBIN 12.7 g/dL (12.0-15.5)
[2017-07-20 07:01] LABS: ANION GAP 14 (5-19); BLOOD UREA NITROGEN 5 mg/dL (7-20); CALCIUM 7.6 mg/dL (8.4-10.2); CARBON DIOXIDE 13 mmol/L (22-30); CHLORIDE 112 mmol/L (98-107); GLUCOSE 256 mg/dL (75-110); POTASSIUM 3.5 mmol/L (3.6-5.0); SODIUM 139.4 mmol/L (137-145)
[2017-07-20] MEDS: DOCUSATE SODIUM 100 MG CAPSULE PO SCH ×2 (08:39→17:32)
[2017-07-20] MEDS ORDERED: INSULIN REG, HUMAN 100 UNIT/ML 3 ML VIAL (PYX) ONE (09:56)
[2017-07-20 11:22] LABS: ANION GAP 9 (5-19); BLOOD UREA NITROGEN 4 mg/dL (7-20); CARBON DIOXIDE 17 mmol/L (22-30); CHLORIDE 115 mmol/L (98-107); GLUCOSE 133 mg/dL (75-110); POTASSIUM 3.1 mmol/L (3.6-5.0); SODIUM 141.4 mmol/L (137-145)
[2017-07-20 12:15] LABS: APPEARANCE,URINE SLIGHTLY-CLOUDY; BILIRUBIN,URINE NEGATIVE (NEGATIVE); COLOR,URINE YELLOW; GLUCOSE, URINE 50 mg/dL (NEGATIVE); KETONES,URINE TRACE mg/dL (NEGATIVE); LEUKOCYTE ESTERASE,URINE SMALL (NEGATIVE); NITRITE,URINE NEGATIVE (NEGATIVE); PROTEIN,URINE NEGATIVE (NEGATIVE); URINE SPECIFIC GRAVITY 1.011; UROBILINOGEN,URINE NEGATIVE mg/dL (<2.0)
[2017-07-20 15:19] LABS: ANION GAP 11 (5-19); BLOOD UREA NITROGEN 4 mg/dL (7-20); CALCIUM 8.3 mg/dL (8.4-10.2); CARBON DIOXIDE 18 mmol/L (22-30); CHLORIDE 113 mmol/L (98-107); GLUCOSE 119 mg/dL (75-110); POTASSIUM 3.4 mmol/L (3.6-5.0); SODIUM 142.3 mmol/L (137-145)
--- NOTE | 2017-07-20 16:02 | PDOC PROGRESS REPORT ---
Subjective Progress Note for:: 07/20/17 Subjective:: No complaints. States she is starting to develop an appetite Reason For Visit: DKA Physical Exam Vital Signs: Temp Pulse Resp BP Pulse Ox 97.6 F 92 22 H 100/63 100 07/20/17 15:36 07/20/17 15:36 07/20/17 15:36 07/20/17 15:36 07/20/17 15:36 Intake & Output 07/19/17 07/20/17 07/21/17 05:59 05:59 05:59 Intake Total 1721 Output Total 700 2000 Balance 1021 -2000 Weight 142 lb 6.698 oz General appearance: PRESENT: no acute distress, other - Chronically ill- appearing Respiratory exam: PRESENT: clear to auscultation adriel Cardiovascular exam: PRESENT: RRR GI/Abdominal exam: PRESENT: soft Musculoskeletal exam: PRESENT: normal inspection Neurological exam: PRESENT: awake Psychiatric exam: PRESENT: flat affect Skin exam: PRESENT: pallor, warm Results Laboratory Results: 07/20/17 06:19 07/20/17 14:52 07/19/17 07/19/17 07/20/17 21:45 21:45 01:45 WBC RBC Hgb Hct MCV MCH MCHC RDW Plt Count Seg Neutrophils % Lymphocytes % Monocytes % Eosinophils % Basophils % Absolute Neutrophils Absolute Lymphocytes Absolute Monocytes Absolute Eosinophils Absolute Basophils Sodium 142.5 141.8 Potassium 3.6 3.3 L Chloride 112 H 117 H Carbon Dioxide 7 L* 12 L Anion Gap 24 H 13 BUN 6 L 5 L Creatinine 0.50 L 0.34 L Est GFR ( Amer) > 60 > 60 Est GFR (Non-Af Amer) > 60 > 60 Glucose 262 H 108 Calcium 7.5 L 7.8 L Phosphorus 1.5 L Magnesium 1.5 L Albumin Urine Color Urine Appearance Urine pH Ur Specific [place] Urine Protein Urine Glucose (UA) Urine Ketones Urine Blood Urine Nitrite Ur Leukocyte Esterase Urine WBC (Auto) Urine RBC (Auto) 07/20/17 07/20/17 07/20/17 06:19 06:19 06:19 WBC 6.5 RBC 4.08 Hgb 12.7 D Hct 37.9 MCV 93 MCH 31.3 MCHC 33.7 RDW 13.4 Plt Count 223 Seg Neutrophils % 46.3 Lymphocytes % 44.7 Monocytes % 6.3 Eosinophils % 2.0 Basophils % 0.7 Absolute Neutrophils 3.0 Absolute Lymphocytes 2.9 Absolute Monocytes 0.4 Absolute Eosinophils 0.1 Absolute Basophils 0.0 Sodium 139.4 Potassium 3.5 L Chloride 112 H Carbon Dioxide 13 L Anion Gap 14 BUN 5 L Creatinine 0.35 L Est GFR ( Amer) > 60 Est GFR (Non-Af Amer) > 60 Glucose 256 H Calcium 7.6 L Phosphorus Magnesium Albumin 3.0 L Urine Color Urine Appearance Urine pH Ur Specific [place] Urine Protein Urine Glucose (UA) Urine Ketones Urine Blood Urine Nitrite Ur Leukocyte Esterase Urine WBC (Auto) Urine RBC (Auto) 07/20/17 07/20/17 07/20/17 10:46 11:57 14:52 WBC RBC Hgb Hct MCV MCH MCHC RDW Plt Count Seg Neutrophils % Lymphocytes % Monocytes % Eosinophils % Basophils % Absolute Neutrophils Absolute Lymphocytes Absolute Monocytes Absolute Eosinophils Absolute Basophils Sodium 141.4 142.3 Potassium 3.1 L 3.4 L Chloride 115 H 113 H Carbon Dioxide 17 L 18 L Anion Gap 9 11 BUN 4 L 4 L Creatinine 0.30 L 0.36 L Est GFR ( Amer) > 60 > 60 Est GFR (Non-Af Amer) > 60 > 60 Glucose 133 H 119 H Calcium 8.0 L 8.3 L Phosphorus Magnesium Albumin Urine Color YELLOW Urine Appearance SLIGHTLY-CLOUDY Urine pH 6.0 Ur Specific [place] 1.011 Urine Protein NEGATIVE Urine Glucose (UA) 50 H Urine Ketones TRACE H Urine Blood SMALL H Urine Nitrite NEGATIVE Ur Leukocyte Esterase SMALL H Urine WBC (Auto) 4 Urine RBC (Auto) 1 Assessment & Plan - Diagnosis (1) Diabetic ketoacidosis associated with type 1 diabetes mellitus Qualifiers: Diabetes mellitus complication detail: without coma Qualified Code(s): E10.10 - Type 1 diabetes mellitus with ketoacidosis without coma Is this a current diagnosis for this admission?: Yes Plan: Continue her insulin drip and until her CO2 is greater than 20. She is already on D5 at 200. Her blood sugars are in the 80s. So I will let her eat (2) Hypomagnesemia Is this a current diagnosis for this admission?: Yes Plan: Replace and recheck (3) Hypophosphatemia Is this a current diagnosis for this admission?: Yes Plan: Replace and recheck (4) Nausea Is this a current diagnosis for this admission?: Yes Plan: Resolved. (5) Noncompliance with diabetes treatment Is this a current diagnosis for this admission?: Yes (6) Tobacco dependency Is this a current diagnosis for this admission?: Yes Plan: Nicotine replacement
[2017-07-20] MEDS ORDERED: NICOTINE 21 MG/24 HR PATCH.TD24 TD ONE (17:00)
[2017-07-20 18:13] LABS: ANION GAP 7 (5-19); BLOOD UREA NITROGEN 6 mg/dL (7-20); CALCIUM 8.2 mg/dL (8.4-10.2); CARBON DIOXIDE 19 mmol/L (22-30); CHLORIDE 112 mmol/L (98-107); GLUCOSE 291 mg/dL (75-110); POTASSIUM 3.6 mmol/L (3.6-5.0); SODIUM 138.3 mmol/L (137-145)
[2017-07-20] MEDS ORDERED: NORMAL SALINE 100 ML with INSULIN REGULAR, HUMAN 100 UNIT IV PRN ×2 (20:32)
[2017-07-20 21:37] LABS: ANION GAP 13 (5-19); BLOOD UREA NITROGEN 8 mg/dL (7-20); CARBON DIOXIDE 16 mmol/L (22-30); CHLORIDE 110 mmol/L (98-107); GLUCOSE 179 mg/dL (75-110); POTASSIUM 3.8 mmol/L (3.6-5.0); SODIUM 139.3 mmol/L (137-145)
[2017-07-21] MEDS: POTASSI CL 20 MEQ/D5-1/2NS 1L 1,000 ML IV PRN ×2 (00:34→05:42)
[2017-07-21 01:34] LABS: ANION GAP 9 (5-19); BLOOD UREA NITROGEN 7 mg/dL (7-20); CALCIUM 8.6 mg/dL (8.4-10.2); CARBON DIOXIDE 23 mmol/L (22-30); CHLORIDE 113 mmol/L (98-107); GLUCOSE 116 mg/dL (75-110); POTASSIUM 3.4 mmol/L (3.6-5.0); SODIUM 144.5 mmol/L (137-145)
[2017-07-21] MEDS ORDERED: POTASSIUM CHLORIDE 10 MEQ TABLET.SA PO ONE ×2 (04:40→07:00)
[2017-07-21] MEDS: HEPARIN SOD (PORCINE) 5,000 UNIT/ML 1 ML SYRINGE SUBCUT SCH (05:08)
[2017-07-21 06:01] LABS: ANION GAP 10 (5-19); BLOOD UREA NITROGEN 6 mg/dL (7-20); CALCIUM 8.4 mg/dL (8.4-10.2); CARBON DIOXIDE 18 mmol/L (22-30); CHLORIDE 115 mmol/L (98-107); GLUCOSE 162 mg/dL (75-110); SODIUM 143.2 mmol/L (137-145)
[2017-07-21 06:30] LABS: POTASSIUM 2.9 mmol/L (3.6-5.0)
[2017-07-21 06:32] LABS: ALBUMIN 2.5 g/dL (3.5-5.0); ANION GAP 12 (5-19); BLOOD UREA NITROGEN 6 mg/dL (7-20); CALCIUM 8.4 mg/dL (8.4-10.2); CARBON DIOXIDE 18 mmol/L (22-30); CHLORIDE 114 mmol/L (98-107); GLUCOSE 164 mg/dL (75-110); PHOSPHORUS 1.9 mg/dL (2.5-4.5)
[2017-07-21 06:35] LABS: POTASSIUM 2.9 mmol/L (3.6-5.0)
[2017-07-21] MEDS: POTASSIUM CHLORIDE 10 MEQ TABLET.SA PO SCH ×2 (07:38→08:54)
[2017-07-21] MEDS: DEXTROSE 50%-WATER 25 GM/50 ML DISP.SYRIN IV PRN (07:54)
[2017-07-21] MEDS: DOCUSATE SODIUM 100 MG CAPSULE PO SCH (09:45)
[2017-07-21] MEDS ORDERED: NICOTINE 21 MG/24 HR PATCH.TD24 TD SCH (10:00)
[2017-07-21 10:07] LABS: BLOOD UREA NITROGEN 5 mg/dL (7-20); CALCIUM 9.2 mg/dL (8.4-10.2); GLUCOSE 128 mg/dL (75-110)
[2017-07-21 10:08] LABS: ANION GAP 9 (5-19); CARBON DIOXIDE 24 mmol/L (22-30); CHLORIDE 111 mmol/L (98-107); POTASSIUM 3.8 mmol/L (3.6-5.0); SODIUM 144.3 mmol/L (137-145)
[2017-07-21] MEDS ORDERED: (PENDING PHARMACY ID) (Insulin Degludec [Tresiba Flextouch U-100] 30 UNIT) SQ SCH (11:00)
[2017-07-21] MEDS ORDERED: INSULIN LISPRO 100 UNIT/ML 3 ML VIAL SUBCUT PRN (11:01)
[2017-07-21] MEDS ORDERED: INSULIN GLARGINE,HUM.REC.ANLOG 1,000 UNIT/10 ML UNIT SUBCUT ONE ×2 (11:45→12:00)
[2017-07-21] MEDS ORDERED: PHOSPHORUS #1 250 MG TABLET PO ONE (11:45)
[2017-07-21 12:22] VITALS: BP 99/65
--- NOTE | 2017-07-21 15:04 | PDOC DISCHARGE SUMMARY ---
General - Admit/Disc Date/PCP Admission Date/Primary Care Provider: 07/19/17 20:45 DENVER STAFFORD PA-C Discharge Date: 07/21/17 - Discharge Diagnosis (1) Diabetic ketoacidosis associated with type 1 diabetes mellitus Is this a current diagnosis for this admission?: Yes Summary: Patient was vigorously hydrated, placed on an insulin drip until her acidosis resolved. I would prefer to keep her to ensure she remains stable and to continue to correct her electrolytes, but she states she has to leave as her has to go to work and there is no one to watch their children, so I will discharge her (2) Hypomagnesemia Is this a current diagnosis for this admission?: Yes Summary: Ongoing replacement (3) Hypophosphatemia Is this a current diagnosis for this admission?: Yes Summary: Ongoing replacement (4) Nausea Is this a current diagnosis for this admission?: Yes Summary: Resolved (5) Noncompliance with diabetes treatment Is this a current diagnosis for this admission?: Yes (6) Tobacco dependency Is this a current diagnosis for this admission?: Yes - Additional Information Resuscitation Status: Full Code Discharge Diet: Diabetic Discharge Activity: Activity As Tolerated Home Medications: RX: Insulin Aspart [Novolog Insulin (Aspart) 100 unit/mL] 10 unit SQ BIDACBS RX: Insulin Degludec [Tresiba Flextouch U-100] 30 unit SQ QHS 07/20/17 History of Present Illness Patient complains of: Abdominal pain, uncontrolled blood sugar History of Present Illness: FRIDA ALMANZA is a 26 year old female with history of type 1 diabetes, noncompliance, recurrent DKA and opiate seeking behavior. Presents to the emergency room with polyuria polydipsia abdominal pain nausea and vomiting of gastric content. In the emergency room she is found tachypneic and to have uncontrolled hyperglycemia and undetectable bicarb. She admits medication lifestyle indiscretion. She is placed on IV insulin, fluids and referred to the hospitalist for admission. Hospital Course Hospital Course: She was admitted to the ICU, vigorously hydrated, placed on insulin drip with every 1 Accu-Cheks and every 4 electrolytes. When her blood sugar normalized D5 was added to her fluids. Electrolytes have been being replaced on an ongoing basis and are still being replaced. Her acidosis finally corrected, she was given her home Lantus, and she stated she had to go home take care of her children. Physical Exam Vital Signs: Temp Pulse Resp BP Pulse Ox 97.5 F 77 16 99/65 L 100 07/21/17 12:19 07/21/17 12:19 07/21/17 12:19 07/21/17 12:19 07/21/17 12:19 Intake & Output 07/20/17 07/21/17 07/22/17 05:59 05:59 05:59 Intake Total 1721 2938 2599 Output Total 700 4400 1300 Balance 1021 -1462 1299 Weight 142 lb 6.698 oz 142 lb 3.17 oz General appearance: PRESENT: no acute distress, cooperative Respiratory exam: PRESENT: clear to auscultation adriel Cardiovascular exam: PRESENT: RRR GI/Abdominal exam: PRESENT: soft Extremities exam: ABSENT: +1 edema Neurological exam: PRESENT: alert Psychiatric exam: PRESENT: appropriate affect Skin exam: PRESENT: warm Results Laboratory Results: 07/20/17 06:19 07/21/17 09:33 07/20/17 07/20/17 07/20/17 14:52 17:50 21:15 Sodium 142.3 138.3 139.3 Potassium 3.4 L 3.6 3.8 Chloride 113 H 112 H 110 H Carbon Dioxide 18 L 19 L 16 L Anion Gap 11 7 13 BUN 4 L 6 L 8 Creatinine 0.36 L 0.35 L 0.35 L Est GFR ( Amer) > 60 > 60 > 60 Est GFR (Non-Af Amer) > 60 > 60 > 60 Glucose 119 H 291 H 179 H Calcium 8.3 L 8.2 L 9.0 Phosphorus Magnesium Albumin 07/21/17 07/21/17 07/21/17 01:10 05:19 05:19 Sodium 144.5 144.0 143.2 Potassium 3.4 L 2.9 L* 2.9 L* Chloride 113 H 114 H 115 H Carbon Dioxide 23 18 L 18 L Anion Gap 9 12 10 BUN 7 6 L 6 L Creatinine 0.34 L 0.33 L 0.32 L Est GFR ( Amer) > 60 > 60 > 60 Est GFR (Non-Af Amer) > 60 > 60 > 60 Glucose 116 H 164 H 162 H Calcium 8.6 8.4 8.4 Phosphorus 1.9 L Magnesium 1.8 Albumin 2.5 L 05/14/18 09:33 Sodium 144.3 Potassium 3.8 Chloride 111 H Carbon Dioxide 24 Anion Gap 9 BUN 5 L Creatinine 0.30 L Est GFR ( Amer) > 60 Est GFR (Non-Af Amer) > 60 Glucose 128 H Calcium 9.2 Phosphorus Magnesium Albumin Qualifiers - * PATIENT BEING DISCHARGED WITH ANY OF THE FOLLOWING DIAGNOSIS: No
[2017-07-21] MEDS ORDERED: PHOSPHORUS #1 250 MG TABLET PO SCH (16:00)
[2017-07-22] MEDS ORDERED: INSULIN GLARGINE,HUM.REC.ANLOG 300 UNIT/3 ML INSULN.PEN SUBCUT SCH (08:00)
[2017-07-22] MEDS ORDERED: INSULIN GLARGINE,HUM.REC.ANLOG 1,000 UNIT/10 ML UNIT SUBCUT SCH (10:00)
== END 2017-07-21 12:27 | disposition home or self-care (01) | DRG 639 ==
LOC: ER 18:01 → EH 20:45 → ICU 22:30
PROVIDERS: ADMIT Internal Medicine; ATTEND Internal Medicine
PROC: 3E0F73Z Introduction of Anti-inflammatory into Respiratory Tract, Via Natural or Artificial Opening (ICD-10-PCS; principal; 2017-07-19)
DX: E10.10 Type 1 diabetes mellitus with ketoacidosis without coma (principal); E83.42 Hypomagnesemia; E83.39 Other disorders of phosphorus metabolism; F17.210 Nicotine dependence, cigarettes, uncomplicated; K21.9 Gastro-esophageal reflux disease without esophagitis; E86.0 Dehydration; F41.9 Anxiety disorder, unspecified; G43.909 Migraine, unspecified, not intractable, without status migrainosus; Z90.49 Acquired absence of other specified parts of digestive tract; Z91.19 Patient's noncompliance with other medical treatment and regimen; Z76.5 Malingerer [conscious simulation]; Z79.4 Long term (current) use of insulin; Z79.82 Long term (current) use of aspirin; Z79.891 Long term (current) use of opiate analgesic; Z79.899 Other long term (current) drug therapy; Z80.8 Family history of malignant neoplasm of other organs or systems
CPT/HCPCS: 36415; 80048; 80069; 81001; 82040; 82803; 82962; 83735; 84100; 85025; 96361; 96374; 99291; J1630; J1644; J1815; J3475; J3480; J3490; J7030; J7120

== ENCOUNTER 2017-08-24 14:31 | Inpatient (IN) | payer MEDICAID ==
[2017-08-24] MEDS ORDERED: ACETAMINOPHEN 325 MG TABLET PO ONE (15:52)
--- NOTE | 2017-08-24 15:54 | ER Document Report ---
ED Medical Screen (RME) - General Chief Complaint: Abdominal Pain Stated Complaint: ABDOMINAL PAIN Time Seen by Provider: 08/24/17 14:41 Mode of Arrival: Ambulatory Information source: Patient Notes: 26-year-old female with type 1 diabetes presents with complaint of lower abdominal pain that started 1 day prior to arrival. Patient describes the pain as stabbing, throbbing. Patient denies any prior similar symptoms. She states that she recently had a yeast infection for which her doctor called in [facility]. Patient has a history of a tubal ligation and does not believe she is at this time. She also reports some elevated glucose readings of 250 at home. Accu-Chek 258 here in triage. I have greeted and performed a rapid initial assessment of this patient. A comprehensive ED assessment and evaluation of the patient including analysis of labs and imaging ( if obtained) and completion of medical decision making will be conducted by an additional ED provider. PHYSICAL EXAMINATION: GENERAL: Appears to be in pain HEAD: Atraumatic, normocephalic. EYES: Pupils equal round extraocular movements intact, conjunctiva are normal. ENT: Nares patent NECK: Normal range of motion LUNGS: No respiratory distress Musculoskeletal: Normal range of motion NEUROLOGICAL: Normal speech, normal gait. PSYCH: Normal mood, normal affect. SKIN: Warm, Dry, normal turgor, no rashes or lesions noted. TRAVEL OUTSIDE OF THE [place] IN LAST 30 DAYS: No - HPI Onset: Yesterday Onset/Duration: Gradual, Persistent, Worse Quality of pain: Stabbing, Throbbing Severity: Moderate Pain Level: 2 - Related Data Allergies/Adverse Reactions: aspirin Allergy (Mild, Verified 08/24/17 14:34) Hives ibuprofen Allergy (Mild, Verified 08/24/17 14:34) Hives tramadol Allergy (Mild, Verified 08/24/17 14:34) Hives ketorolac [From Toradol] Allergy (Verified 08/24/17 14:34) Past Medical History - Social History Chew tobacco use (# tins/day): No Frequency of alcohol use: Rare Drug Abuse: None Family history: Reviewed & Not Pertinent - Past Medical History Cardiac Medical History: Denies: Hx Congestive Heart Failure, Hx DVT, Hx Heart Attack, Hx Hypercholesterolemia, Hx Hypertension, Hx Pulmonary Embolism Pulmonary Medical History: Denies: Hx Asthma, Hx COPD Neurological Medical History: Denies: Hx Seizures Endocrine Medical History: Reports: Hx Diabetes Mellitus Type 1 - Insulin- dependent, metformin, lantus, and novalog. Denies: Hx Hyperthyroidism, Hx Hypothyroidism Renal/ Medical History: Reports: Hx Kidney Stones, Hx Ovarian Cysts. Denies: Hx Peritoneal Dialysis GI Medical History: Reports: Hx Gastroesophageal Reflux Disease. Denies: Hx Cirrhosis, Hx Hepatitis Musculoskeltal Medical History: Denies Hx Arthritis, Reports Hx Musculoskeletal Deformity, Reports Hx Musculoskeletal Trauma Skin Medical History: Denies Hx Eczema, Denies Hx Psoriasis Psychiatric Medical History: Reports: Hx Anxiety Denies: Hx Depression Infectious Medical History: Denies: Hx Hepatitis Past Surgical History: Reports: Hx Cholecystectomy, Hx Oral Surgery - Dental surgery, Hx Tubal Ligation, Other - Incision and drainage of multiple perirectal abscesses - Immunizations Hx Diphtheria, Pertussis, Tetanus Vaccination: Yes - 2016 History of Influenza Vaccine for 12/2016 - 05/2017 Season: Refused Physical Exam - Vital signs Vitals: Temp Pulse Resp BP Pulse Ox 97.6 F 111 H 16 105/69 96 08/24/17 14:41 08/24/17 14:41 08/24/17 14:41 08/24/17 14:41 08/24/17 14:41 Course - Vital Signs Vital signs: Temp Pulse Resp BP Pulse Ox 97.6 F 111 H 16 105/69 96 08/24/17 14:41 08/24/17 14:41 08/24/17 14:41 08/24/17 14:41 08/24/17 14:41 Doctor's Discharge - Discharge Referrals: DENVER STAFFORD PA-C [Primary Care Provider] - Follow up as needed
[2017-08-24 16:37] LABS: APPEARANCE,URINE SLIGHTLY-CLOUDY; BILIRUBIN,URINE NEGATIVE (NEGATIVE); COLOR,URINE YELLOW; GLUCOSE, URINE >=500 mg/dL (NEGATIVE); KETONES,URINE 80 mg/dL (NEGATIVE); LEUKOCYTE ESTERASE,URINE NEGATIVE (NEGATIVE); NITRITE,URINE NEGATIVE (NEGATIVE); PROTEIN,URINE 30 mg/dL (NEGATIVE); URINE SPECIFIC GRAVITY 1.033
[2017-08-24 16:40] LABS: ABSOLUTE BASOPHILS # (AUTO) 0.1 10^3/uL (0.0-0.2); ABSOLUTE EOSINOPHILS # (AUTO) 0.1 10^3/uL (0.0-0.6); ABSOLUTE LYMPHOCYTES (AUTO) 2.3 10^3/uL (0.5-4.7); ABSOLUTE MONOCYTES (AUTO) 0.5 10^3/uL (0.1-1.4); ABSOLUTE NEUT (AUTO) 3.5 10^3/uL (1.7-8.2); BASOPHILS % (AUTO) 0.8 % (0-2); HEMATOCRIT 41.5 % (36.0-47.0); HEMOGLOBIN 14.5 g/dL (12.0-15.5); LYMPHOCYTES % (AUTO) 35.7 % (13-45); MEAN CORPUSCULAR HEMOGLOBIN 31.9 pg (27.0-33.4); MEAN CORPUSCULAR HGB CONC 35.1 g/dL (32.0-36.0); MEAN CORPUSCULAR VOLUME 91 fl (80-97); PLATELET COUNT 181 10^3/uL (150-450); RED BLOOD COUNT 4.56 10^6/uL (3.72-5.28); RED CELL DISTRIBUTION WIDTH 14.6 % (11.5-14.0); SEGMENTED NEUTROPHILS % (AUTO) 53.5 % (42-78); TOTAL CELLS COUNTED % (AUTO) 100 %; WHITE BLOOD COUNT 6.5 10^3/uL (4.0-10.5)
[2017-08-24] MEDS ORDERED: NORMAL SALINE 1000 ML 1,000 ML IV ONE ×2 (16:49→18:25)
[2017-08-24 16:53] LABS: ALANINE AMINOTRANSFERASE 22 U/L (9-52); ALBUMIN 3.6 g/dL (3.5-5.0); ALKALINE PHOSPHATASE 98 U/L (38-126); ANION GAP 10 (5-19); ASPARTATE AMINO TRANSFERASE 15 U/L (14-36); BILIRUBIN,DIRECT 0.3 mg/dL (0.0-0.4); BILIRUBIN,TOTAL 0.3 mg/dL (0.2-1.3); BLOOD UREA NITROGEN 14 mg/dL (7-20); CALCIUM 9.4 mg/dL (8.4-10.2); CARBON DIOXIDE 26 mmol/L (22-30); CHLORIDE 101 mmol/L (98-107); GLUCOSE 256 mg/dL (75-110); SODIUM 137.3 mmol/L (137-145); TOTAL PROTEIN 6.1 g/dL (6.3-8.2)
[2017-08-24] MEDS ORDERED: FENTANYL CITRATE INJ/PF 100 MCG/2 ML AMPUL IV ONE (16:56)
--- NOTE | 2017-08-24 16:58 | ER Document Report ---
ED General - General Mode of Arrival: Ambulatory Information source: Patient TRAVEL OUTSIDE OF THE [place] IN LAST 30 DAYS: No - HPI Onset: Other - Pelvic pain 3 days, sacral pain 2 weeks Onset/Duration: Persistent Quality of pain: Achy Pain Level: 4 Associated symptoms: Other - Abdominal pain. denies: Chest pain, Nonproductive cough, Productive cough, Diarrhea, Fever, Nausea, Vomiting Exacerbated by: Denies Relieved by: Denies Similar symptoms previously: Yes Recently seen / treated by doctor: No <EAMON DAVEY - Last Filed: 08/24/17 19:32> <ESTELLE NGUYEN - Last Filed: 08/24/17 20:38> - General Chief Complaint: Abdominal Pain Stated Complaint: ABDOMINAL PAIN Time Seen by Provider: 08/24/17 14:41 Notes: Patient presents complaining of lower pelvic pain for the past 3 days. Patient additionally complains of pain to the buttock area for the past 2 weeks. Patient does report drainage from a perianal abscess that started yesterday. Patient denies any fever or urinary symptoms. Patient states she is currently being treated for a yeast infection. Patient does have a history of insulin- dependent diabetes as well as multiple perianal abscess in the past. Patient denies any history of Crohn's. (EAMON DAVEY) - Related Data Allergies/Adverse Reactions: aspirin Allergy (Mild, Verified 08/24/17 14:34) Hives ibuprofen Allergy (Mild, Verified 08/24/17 14:34) Hives tramadol Allergy (Mild, Verified 08/24/17 14:34) Hives ketorolac [From Toradol] Allergy (Verified 08/24/17 14:34) Past Medical History - General Information source: Patient - Social History Smoking Status: Current Every Day Smoker Chew tobacco use (# tins/day): No Frequency of alcohol use: Rare Drug Abuse: None Occupation: None Lives with: Family Family History: Reviewed & Not Pertinent, Malignancy, Thyroid Disfunction - Thyroid cancer Patient has suicidal ideation: No Patient has homicidal ideation: No - Past Medical History Cardiac Medical History: Denies: Hx Congestive Heart Failure, Hx DVT, Hx Heart Attack, Hx Hypercholesterolemia, Hx Hypertension, Hx Pulmonary Embolism Pulmonary Medical History: Denies: Hx Asthma, Hx COPD Neurological Medical History: Denies: Hx Seizures Endocrine Medical History: Reports: Hx Diabetes Mellitus Type 1 - Insulin- dependent, metformin, lantus, and novalog. Denies: Hx Hyperthyroidism, Hx Hypothyroidism Renal/ Medical History: Reports: Hx Kidney Stones, Hx Ovarian Cysts. Denies: Hx Peritoneal Dialysis GI Medical History: Reports: Hx Gastroesophageal Reflux Disease. Denies: Hx Cirrhosis, Hx Hepatitis Musculoskeltal Medical History: Denies Hx Arthritis, Reports Hx Musculoskeletal Deformity, Reports Hx Musculoskeletal Trauma Skin Medical History: Denies Hx Eczema, Denies Hx Psoriasis Psychiatric Medical History: Reports: Hx Anxiety Denies: Hx Depression Infectious Medical History: Denies: Hx Hepatitis Past Surgical History: Reports: Hx Cholecystectomy, Hx Oral Surgery - Dental surgery, Hx Tubal Ligation, Other - Incision and drainage of multiple perirectal abscesses - Immunizations Hx Diphtheria, Pertussis, Tetanus Vaccination: Yes - 2015 <EAMON DAVEY - Last Filed: 08/24/17 19:32> Review of Systems - Review of Systems Constitutional: No symptoms reported. denies: Fever EENT: No symptoms reported Cardiovascular: No symptoms reported. denies: Chest pain Respiratory: No symptoms reported. denies: Cough, Short of breath Gastrointestinal: Abdominal pain. denies: Diarrhea, Nausea, Vomiting Genitourinary: No symptoms reported. denies: Dysuria, Flank pain Female Genitourinary: Vaginal discharge - Patient reports yeast infection. denies: , Vaginal bleeding Musculoskeletal: No symptoms reported Skin: Other - Draining perianal abscess Hematologic/Lymphatic: No symptoms reported Neurological/Psychological: No symptoms reported <EAMON DAVEY - Last Filed: 08/24/17 19:32> Physical Exam - General General appearance: Appears well, Alert In distress: None - HEENT Head: Normocephalic, Atraumatic Eyes: Normal Nasal: Normal Mouth/Lips: Normal Mucous membranes: Normal Neck: Normal, Supple. No: Lymphadenopathy - Respiratory Respiratory status: No respiratory distress Chest status: Nontender Breath sounds: Normal. No: Rales, Rhonchi, Stridor, Wheezing Chest palpation: Normal - Cardiovascular Rhythm: Tachycardia Heart sounds: S1 appreciated, S2 appreciated Murmur: No - Abdominal Inspection: Normal Distension: No distension Bowel sounds: Normal Tenderness: Tender - Left lower pelvic tenderness Organomegaly: No organomegaly - Genitourinary External exam: Normal Speculum exam: Normal Vaginal bleeding: None Bimanuel exam: Adnexal tenderness - left - Back Back: Normal, Nontender. No: CVA tenderness - Extremities General upper extremity: Normal inspection, Normal ROM General lower extremity: Normal inspection, Normal ROM - Neurological Neuro grossly intact: Yes Cognition: Normal Melita Coma Scale Eye Opening: Spontaneous Melita Coma Scale Verbal: Oriented [place] Coma Scale Motor: Obeys Commands Melita Coma Scale Total: 15 - Psychological Associated symptoms: Normal affect, Normal mood - Skin Skin Temperature: Warm Skin Moisture: Dry Skin Color: Normal Skin irregularity: Abscess - Draining perianal abscess <EAMON DAVEY - Last Filed: 08/24/17 19:32> <ESTELLE NGUYEN - Last Filed: 08/24/17 20:38> - Vital signs Vitals: Temp Pulse Resp BP Pulse Ox 97.6 F 111 H 16 105/69 96 08/24/17 14:41 08/24/17 14:41 08/24/17 14:41 08/24/17 14:41 08/24/17 14:41 - Rectal Notes: Draining perirectal abscess (EAMON DAVEY) Course - Laboratory Result Diagrams: 08/24/17 16:18 08/24/17 16:18 <EAMON DAVEY - Last Filed: 08/24/17 19:32> - Laboratory Result Diagrams: 08/24/17 16:18 08/24/17 16:18 <ESTELLE NGUYEN - Last Filed: 08/24/17 20:38> - Re-evaluation Re-evalutation: 08/24/17 19:10 Bedside report and handoff given to Estelle Nguyen DESIGN MANAGER. Dr. Bui aware of need for consultation given patient's perianal abscess. 08/24/17 19:38 Dr. Bui to bedside for examination. (EAMON DAVEY) 08/24/17 20:37 Dr. Bui has evaluated the patient and agrees to accept the patient for admission. (ESTELLE NGUYEN) - Vital Signs Vital signs: Temp Pulse Resp BP Pulse Ox 97.6 F 77 16 104/58 L 99 08/24/17 20:01 08/24/17 20:01 08/24/17 20:01 08/24/17 20:01 08/24/17 20:01 - Laboratory Laboratory results interpreted by me: 08/24/17 08/24/17 08/24/17 16:00 16:04 16:18 RDW 14.6 H Creatinine Glucose POC Glucose 258 H Total Protein Urine Protein 30 H Urine Glucose (UA) >=500 H Urine Ketones 80 H Urine Urobilinogen 2.0 H 08/24/17 16:18 RDW Creatinine 0.48 L Glucose 256 H POC Glucose Total Protein 6.1 L Urine Protein Urine Glucose (UA) Urine Ketones Urine Urobilinogen Discharge <EAMON DAVEY - Last Filed: 08/24/17 19:32> <ESTELLE NGUYEN - Last Filed: 08/24/17 20:38> - Discharge Referrals: DENVER STAFFORD PA-C [Primary Care Provider] - Follow up as needed
[2017-08-24 18:23] LABS: VENOUS BLOOD BASE EXCESS 1.1 mmol/L; VENOUS BLOOD HCO3 26.7 mmol/L (20-32); VENOUS BLOOD PCO2 46.2 mmHg (35-63); VENOUS BLOOD PH 7.38 (7.30-7.42)
[2017-08-24 18:32] LABS: BACTERIA (WET MOUNT) 3+ BACTERIA SEEN; EPITHELIALS (WET MOUNT) 4+ EPITHELIALS SEEN; T.VAGINALIS (WET MOUNT) NO TRICHOMONAS SEEN; WBCS (WET MOUNT) FEW WBCS SEEN; YEAST (WET MOUNT) NO YEAST SEEN
--- NOTE | 2017-08-24 18:52 | RADIOLOGY REPORT (SQ) ---
EXAM DESCRIPTION: U/S NON OB PEL TV W/DOPPLER COMPLETED DATE/TIME: 08/24/2017 6:13 pm REASON FOR STUDY: LLQ pain COMPARISON: None. TECHNIQUE: Dynamic and static grayscale images acquired of the pelvis via transvaginal approach and recorded on PACS. Additional selected color Doppler and spectral images recorded. LIMITATIONS: None. FINDINGS: UTERUS: Contour normal. No mass. ENDOMETRIAL STRIPE: No focal or generalized thickening. No masses. CERVIX: No nabothian cysts. RIGHT OVARY AND DOPPLER: Ovary not visualized. LEFT OVARY AND DOPPLER: Ovary not visualized. FREE FLUID: None noted. OTHER: No other significant finding. MEASUREMENTS: UTERUS: 4.2 x 5.9 x 9.5 cm. ENDOMETRIAL STRIPE: 6 mm. RIGHT OVARY: Not visualized. LEFT OVARY: Not visualized. IMPRESSION: OVARIES NOT VISUALIZED. OTHERWISE UNREMARKABLE TRANSVAGINAL PELVIC ULTRASOUND. TECHNICAL DOCUMENTATION: JOB ID: [id number] [employer]- All Rights Reserved Rev-07/25 Reading location - IP/workstation name: [email or web address]
[2017-08-24] MEDS ORDERED: PIPERACILLIN/TAZOBACTAM 3.375 GM VIAL IV ONE (19:19)
[2017-08-24 19:59] LABS: CHLAM PCR NOT DETECTED (NOT DETECT); GON PCR NOT DETECTED (NOT DETECT)
--- NOTE | 2017-08-24 20:26 | PDOC H&P ---
History of Present Illness Admission Date/PCP: DENVER STAFFORD PA-C 08/24/17 Patient complains of: left perirectal discharge History of Present Illness: FRIDA ALMANZA is a 26 year old female with diabetes and a long hx of draining perirectal abscesse, last time in [place] 2018. She repsents to the ER complaining of pain to the buttock area for the past 2 weeks. Patient does report drainage from a perianal abscess that started yesterday. Past Medical History Cardiac Medical History: Denies: Congestive Heart Failure, DVT, Myocardial Infarction, Hyperlipidema, Hypertension, Pulmonary Embolism Pulmonary Medical History: Denies: Asthma, Chronic Obstructive Pulmonary Disease (COPD) Neurological Medical History: Denies: Seizures Endocrine Medical History: Reports: Diabetes Mellitus Type 1 - Insulin-dependent , metformin, lantus, and novalog Denies: Hyperthyroidism, Hypothyroidism GI Medical History: Reports: Gastroesophageal Reflux Disease Denies: Cirrhosis, Hepatitis Musculoskeltal Medical History: Denies: Arthritis Skin Medical History: Denies: Eczema, Psoriasis Psychiatric Medical History: Denies: Depression Past Surgical History Past Surgical History: Reports: Cholecystectomy, Tubal Ligation, Other - Incision and drainage of multiple perirectal abscesses Social History Lives with: Family Smoking Status: Current Every Day Smoker Frequency of Alcohol Use: Rare Hx Recreational Drug Use: No Drugs: None Hx Prescription Drug Abuse: No Family History Family History: Reviewed & Not Pertinent, Malignancy, Thyroid Disfunction - Thyroid cancer Parental Family History Reviewed: No Children Family History Reviewed: No Sibling(s) Family History Reviewed.: No Medication/Allergy Home Medications: Insulin Aspart [Novolog Insulin (Aspart) 100 unit/mL] 10 unit SQ BIDACBS Insulin Degludec [Tresiba Flextouch U-100] 30 unit SQ QHS 07/20/17 Allergies/Adverse Reactions: aspirin Allergy (Mild, Verified 08/24/17 14:34) Hives ibuprofen Allergy (Mild, Verified 08/24/17 14:34) Hives tramadol Allergy (Mild, Verified 08/24/17 14:34) Hives ketorolac [From Toradol] Allergy (Verified 08/24/17 14:34) Physical Exam Vital Signs: Temp Pulse Resp BP Pulse Ox 97.6 F 77 16 104/58 L 99 08/24/17 20:01 08/24/17 20:01 08/24/17 20:01 08/24/17 20:01 08/24/17 20:01 Intake & Output 08/23/17 08/24/17 08/25/17 06:59 06:59 06:59 Weight 63.3 kg General appearance: PRESENT: cooperative, mild distress Eye exam: PRESENT: EOMI Mouth exam: PRESENT: neck supple Respiratory exam: PRESENT: clear to auscultation adriel Cardiovascular exam: PRESENT: RRR GI/Abdominal exam: PRESENT: soft Rectal exam: PRESENT: other - presence of multiple, old surgical and abscess draining site scars; left perianal area indurated with pain on palpation, no skin discoloration, small pinpoint opening with no drainage Extremities exam: PRESENT: full ROM Musculoskeletal exam: PRESENT: full ROM Neurological exam: PRESENT: awake Skin exam: PRESENT: warm Results Laboratory Results: 08/24/17 16:18 08/24/17 16:18 08/24/17 08/24/17 08/24/17 16:00 16:18 16:18 WBC 6.5 RBC 4.56 Hgb 14.5 Hct 41.5 MCV 91 MCH 31.9 MCHC 35.1 RDW 14.6 H Plt Count 181 Seg Neutrophils % 53.5 Lymphocytes % 35.7 Monocytes % 8.0 Eosinophils % 2.0 Basophils % 0.8 Absolute Neutrophils 3.5 Absolute Lymphocytes 2.3 Absolute Monocytes 0.5 Absolute Eosinophils 0.1 Absolute Basophils 0.1 VBG pH VBG pCO2 VBG HCO3 VBG Base Excess Sodium 137.3 Potassium 4.0 Chloride 101 Carbon Dioxide 26 Anion Gap 10 BUN 14 Creatinine 0.48 L Est GFR ( Amer) > 60 Est GFR (Non-Af Amer) > 60 Glucose 256 H Calcium 9.4 Total Bilirubin 0.3 AST 15 ALT 22 Alkaline Phosphatase 98 Total Protein 6.1 L Albumin 3.6 Urine Color YELLOW Urine Appearance SLIGHTLY-CLOUDY Urine pH 6.0 Ur Specific [place] 1.033 Urine Protein 30 H Urine Glucose (UA) >=500 H Urine Ketones 80 H Urine Blood NEGATIVE Urine Nitrite NEGATIVE Ur Leukocyte Esterase NEGATIVE Urine WBC (Auto) 2 Urine RBC (Auto) 4 08/24/17 17:26 WBC RBC Hgb Hct MCV MCH MCHC RDW Plt Count Seg Neutrophils % Lymphocytes % Monocytes % Eosinophils % Basophils % Absolute Neutrophils Absolute Lymphocytes Absolute Monocytes Absolute Eosinophils Absolute Basophils VBG pH 7.38 VBG pCO2 46.2 VBG HCO3 26.7 VBG Base Excess 1.1 Sodium Potassium Chloride Carbon Dioxide Anion Gap BUN Creatinine Est GFR ( Amer) Est GFR (Non-Af Amer) Glucose Calcium Total Bilirubin AST ALT Alkaline Phosphatase Total Protein Albumin Urine Color Urine Appearance Urine pH Ur Specific [place] Urine Protein Urine Glucose (UA) Urine Ketones Urine Blood Urine Nitrite Ur Leukocyte Esterase Urine WBC (Auto) Urine RBC (Auto) Impressions: Transvaginal US 08/24/17 16:55 IMPRESSION: OVARIES NOT VISUALIZED. OTHERWISE UNREMARKABLE TRANSVAGINAL PELVIC ULTRASOUND. Assessment & Plan - Diagnosis (1) Perirectal abscess Is this a current diagnosis for this admission?: Yes - Plan Summary Plan Summary: A/ recurrent perirectal abscesses drained in the recent past new left side perirectal abscess, draining identified on physical exam IDDM with hx of poor compliance fasting hypoerglycemia and glicosuria P/ Admit IVF Zosyn 3.375 gr q6 NPO after MN Plan I&D left perirectal abscess in Am Consult medicine for diabetes management
--- NOTE | 2017-08-24 20:58 | PDOC CONSULTATION ---
Consultation Consult Date: 08/24/17 Attending physician:: JAMES MENDOZA Consult reason:: Diabetes management History of Present Illness Admission Date/PCP: DENVER STAFFORD PA-C History of Present Illness: FRIDA ALMANZA is a 26 year old female patient with history of insulin-dependent diabetes mellitus admitted by Dr. Mendoza for left perineal abscess. The hospitalist service consulted for diabetes management. Past Medical History Cardiac Medical History: Denies: Congestive Heart Failure, DVT, Myocardial Infarction, Hyperlipidema, Hypertension, Pulmonary Embolism Pulmonary Medical History: Denies: Asthma, Chronic Obstructive Pulmonary Disease (COPD) Neurological Medical History: Denies: Seizures Endocrine Medical History: Reports: Diabetes Mellitus Type 1 - Insulin-dependent , metformin, lantus, and novalog Denies: Hyperthyroidism, Hypothyroidism GI Medical History: Reports: Gastroesophageal Reflux Disease Denies: Cirrhosis, Hepatitis Musculoskeltal Medical History: Denies: Arthritis Skin Medical History: Denies: Eczema, Psoriasis Psychiatric Medical History: Denies: Depression Past Surgical History Past Surgical History: Reports: Cholecystectomy, Tubal Ligation, Other - Incision and drainage of multiple perirectal abscesses Social History Lives with: Family Smoking Status: Current Every Day Smoker Frequency of Alcohol Use: Rare Hx Recreational Drug Use: No Drugs: None Hx Prescription Drug Abuse: No - Advance Directive Resuscitation Status: Full Code Family History Family History: Reviewed & Not Pertinent, Malignancy, Thyroid Disfunction - Thyroid cancer Parental Family History Reviewed: Yes Children Family History Reviewed: Yes Sibling(s) Family History Reviewed.: Yes Medication/Allergy Home Medications: Insulin Aspart [Novolog Insulin (Aspart) 100 unit/mL] 10 unit SQ BIDACBS Insulin Degludec [Tresiba Flextouch U-100] 30 unit SQ QHS 07/20/17 Allergies/Adverse Reactions: aspirin Allergy (Mild, Verified 08/24/17 14:34) Hives ibuprofen Allergy (Mild, Verified 08/24/17 14:34) Hives tramadol Allergy (Mild, Verified 08/24/17 14:34) Hives ketorolac [From Toradol] Allergy (Verified 08/24/17 14:34) Review of Systems Constitutional: ABSENT: chills, fever(s), headache(s), weight gain, weight loss Eyes: ABSENT: visual disturbances Cardiovascular: ABSENT: chest pain, dyspnea on exertion, edema, orthropnea, palpitations Gastrointestinal: ABSENT: abdominal pain, constipation, diarrhea, hematemesis, hematochezia, nausea, vomiting Integumentary: ABSENT: rash, wounds Neurological: ABSENT: abnormal gait, abnormal speech, confusion, dizziness, focal weakness, syncope Psychiatric: PRESENT: depression Physical Exam Vital Signs: Temp Pulse Resp BP Pulse Ox 97.6 F 77 16 104/58 L 99 08/24/17 20:01 08/24/17 20:01 08/24/17 20:01 08/24/17 20:01 08/24/17 20:01 Intake & Output 08/23/17 08/24/17 08/25/17 06:59 06:59 06:59 Weight 63.3 kg General appearance: PRESENT: no acute distress, well-developed, well-nourished Head exam: PRESENT: atraumatic, normocephalic Ear exam: PRESENT: normal external ear exam Neck exam: ABSENT: carotid bruit, JVD, lymphadenopathy, thyromegaly Respiratory exam: PRESENT: clear to auscultation adriel. ABSENT: rales, rhonchi, wheezes Cardiovascular exam: PRESENT: RRR. ABSENT: diastolic murmur, rubs, systolic murmur GI/Abdominal exam: PRESENT: normal bowel sounds, soft. ABSENT: distended, guarding, mass, organolmegaly, rebound, tenderness Gentrourinary exam: PRESENT: other - Tender and induration of left perineal area. Results Laboratory Results: 08/24/17 16:18 08/24/17 16:18 08/24/17 08/24/17 08/24/17 16:00 16:18 16:18 WBC 6.5 RBC 4.56 Hgb 14.5 Hct 41.5 MCV 91 MCH 31.9 MCHC 35.1 RDW 14.6 H Plt Count 181 Seg Neutrophils % 53.5 Lymphocytes % 35.7 Monocytes % 8.0 Eosinophils % 2.0 Basophils % 0.8 Absolute Neutrophils 3.5 Absolute Lymphocytes 2.3 Absolute Monocytes 0.5 Absolute Eosinophils 0.1 Absolute Basophils 0.1 VBG pH VBG pCO2 VBG HCO3 VBG Base Excess Sodium 137.3 Potassium 4.0 Chloride 101 Carbon Dioxide 26 Anion Gap 10 BUN 14 Creatinine 0.48 L Est GFR ( Amer) > 60 Est GFR (Non-Af Amer) > 60 Glucose 256 H Calcium 9.4 Total Bilirubin 0.3 AST 15 ALT 22 Alkaline Phosphatase 98 Total Protein 6.1 L Albumin 3.6 Urine Color YELLOW Urine Appearance SLIGHTLY-CLOUDY Urine pH 6.0 Ur Specific [place] 1.033 Urine Protein 30 H Urine Glucose (UA) >=500 H Urine Ketones 80 H Urine Blood NEGATIVE Urine Nitrite NEGATIVE Ur Leukocyte Esterase NEGATIVE Urine WBC (Auto) 2 Urine RBC (Auto) 4 08/24/17 17:26 WBC RBC Hgb Hct MCV MCH MCHC RDW Plt Count Seg Neutrophils % Lymphocytes % Monocytes % Eosinophils % Basophils % Absolute Neutrophils Absolute Lymphocytes Absolute Monocytes Absolute Eosinophils Absolute Basophils VBG pH 7.38 VBG pCO2 46.2 VBG HCO3 26.7 VBG Base Excess 1.1 Sodium Potassium Chloride Carbon Dioxide Anion Gap BUN Creatinine Est GFR ( Amer) Est GFR (Non-Af Amer) Glucose Calcium Total Bilirubin AST ALT Alkaline Phosphatase Total Protein Albumin Urine Color Urine Appearance Urine pH Ur Specific [place] Urine Protein Urine Glucose (UA) Urine Ketones Urine Blood Urine Nitrite Ur Leukocyte Esterase Urine WBC (Auto) Urine RBC (Auto) Impressions: Transvaginal US 08/24/17 16:55 IMPRESSION: OVARIES NOT VISUALIZED. OTHERWISE UNREMARKABLE TRANSVAGINAL PELVIC ULTRASOUND. Assessment & Plan - Diagnosis (1) Type 1 diabetes mellitus Is this a current diagnosis for this admission?: Yes Plan: I will start her on Lantus 30 units subcu at bedtime and NovoLog for sliding scale (2) Perianal abscess Is this a current diagnosis for this admission?: Yes Plan: Definitive management per Dr. Mendoza - Inpatient Certification Medical Necessity: Need for IV Antibiotics
[2017-08-24] MEDS ORDERED: GLUCAGON,HUMAN RECOMB 1 MG INJ IM PRN (21:00)
[2017-08-24] MEDS ORDERED: INSULIN LISPRO 100 UNIT/ML 3 ML VIAL SUBCUT PRN (21:00)
[2017-08-24] MEDS ORDERED: DEXTROSE 50%-WATER 25 GM/50 ML DISP.SYRIN IV PRN ×2 (21:00)
[2017-08-24] MEDS ORDERED: DEXTROSE 40% GEL 15 GM TUBE PO PRN ×2 (21:00)
[2017-08-24] MEDS ORDERED: PIPERACILLIN/TAZOBACTAM 3.375 GM VIAL IV PRN (21:09)
[2017-08-24] MEDS ORDERED: ONDANSETRON HCL INJ/PF 4 MG/2 ML SDV IV PRN (21:10)
[2017-08-24] MEDS ORDERED: PIPERACILLIN SODIUM/TAZOBACTAM 3.375 GM in NORMAL SALINE 100 ML IV ONE (21:15)
[2017-08-24] MEDS: HYDROMORPHONE HCL INJ/PF 2 MG/ML AMPULE IV PRN (21:30)
[2017-08-24] MEDS: NORMAL SALINE 1000 ML 1,000 ML IV PRN (21:31)
[2017-08-24] MEDS: FAMOTIDINE INJ/PF 20 MG/2 ML SDV IV SCH (21:31)
[2017-08-24] MEDS ORDERED: INSULIN DETEMIR 100 UNIT/ML 3 ML PEN SUBCUT SCH (22:00)
[2017-08-25] MEDS ORDERED: INSULIN DETEMIR 100 UNIT/ML 3 ML PEN SUBCUT ONE ×2 (00:15→00:21)
[2017-08-25] MEDS: HYDROMORPHONE HCL INJ/PF 2 MG/ML AMPULE IV PRN ×4 (00:35→13:53)
[2017-08-25] MEDS: PIPERACILLIN SODIUM/TAZOBACTAM 3.375 GM in NORMAL SALINE 100 ML IV SCH ×2 (03:27→09:57)
[2017-08-25] MEDS: NORMAL SALINE 1000 ML 1,000 ML IV PRN (04:05)
[2017-08-25 07:17] LABS: ABSOLUTE BASOPHILS # (AUTO) 0.1 10^3/uL (0.0-0.2); ABSOLUTE EOSINOPHILS # (AUTO) 0.1 10^3/uL (0.0-0.6); ABSOLUTE LYMPHOCYTES (AUTO) 2.4 10^3/uL (0.5-4.7); ABSOLUTE MONOCYTES (AUTO) 0.5 10^3/uL (0.1-1.4); ABSOLUTE NEUT (AUTO) 2.9 10^3/uL (1.7-8.2); BASOPHILS % (AUTO) 0.9 % (0-2); EOSINOPHILS % (AUTO) 2.2 % (0-6); HEMATOCRIT 39.3 % (36.0-47.0); HEMOGLOBIN 13.3 g/dL (12.0-15.5); LYMPHOCYTES % (AUTO) 39.5 % (13-45); MEAN CORPUSCULAR HEMOGLOBIN 31.1 pg (27.0-33.4); MEAN CORPUSCULAR HGB CONC 33.8 g/dL (32.0-36.0); MEAN CORPUSCULAR VOLUME 92 fl (80-97); MONOCYTES % (AUTO) 8.9 % (3-13); PLATELET COUNT 135 10^3/uL (150-450); RED BLOOD COUNT 4.27 10^6/uL (3.72-5.28); RED CELL DISTRIBUTION WIDTH 14.6 % (11.5-14.0); SEGMENTED NEUTROPHILS % (AUTO) 48.5 % (42-78); TOTAL CELLS COUNTED % (AUTO) 100 %
[2017-08-25 07:40] LABS: ANION GAP 7 (5-19); BLOOD UREA NITROGEN 9 mg/dL (7-20); CALCIUM 8.4 mg/dL (8.4-10.2); CARBON DIOXIDE 27 mmol/L (22-30); CHLORIDE 108 mmol/L (98-107); GLUCOSE 46 mg/dL (75-110); POTASSIUM 3.2 mmol/L (3.6-5.0); SODIUM 141.9 mmol/L (137-145)
[2017-08-25] MEDS: FAMOTIDINE INJ/PF 20 MG/2 ML SDV IV SCH (09:58)
[2017-08-25] MEDS ORDERED: FENTANYL CITRATE INJ/PF 100 MCG/2 ML AMPUL ONE ×2 (10:38→12:29)
[2017-08-25] MEDS ORDERED: LIDOCAINE 2% INJ-PF (20 MG/ML) 10 ML AMPUL ONE (10:38)
[2017-08-25] MEDS ORDERED: ACETAMINOPHEN 1,000 MG/100 ML RTUPB IV ONE (10:39)
[2017-08-25] MEDS ORDERED: ONDANSETRON HCL INJ/PF 4 MG/2 ML SDV ONE (10:39)
[2017-08-25] MEDS ORDERED: PROPOFOL INJ 200 MG/20 ML VIAL IV ONE (10:39)
[2017-08-25] MEDS ORDERED: DEXAMETHASONE SOD PHOSPHATE INJ 4 MG/1 ML VIAL ONE (10:39)
[2017-08-25] MEDS ORDERED: MIDAZOLAM 2 MG/2 ML INJ ONE (10:39)
[2017-08-25] MEDS ORDERED: PROMETHAZINE HCL INJ 25 MG/1 ML VIAL IV PRN ×2 (11:43)
[2017-08-25] MEDS ORDERED: MEPERIDINE HCL/PF INJ 25 MG/1 ML DISP.SYRIN IV PRN (11:43)
[2017-08-25] MEDS ORDERED: ONDANSETRON HCL INJ/PF 4 MG/2 ML SDV IV PRN ×2 (11:43→13:27)
[2017-08-25] MEDS ORDERED: DIPHENHYDRAMINE HCL 50 MG/ML VIAL IV PRN (11:43)
[2017-08-25] MEDS ORDERED: MORPHINE SULFATE 10 MG/ML INJ IV PRN (11:43)
[2017-08-25] MEDS ORDERED: FENTANYL CITRATE INJ/PF 100 MCG/2 ML AMPUL IV PRN ×3 (11:43)
[2017-08-25] MEDS ORDERED: BUPIVACAINE HCL 0.5%-EPI 1:200000 INJ/PF 30 ML VIAL ONE (11:53)
[2017-08-25] MEDS ORDERED: LIDOCAINE 2% JELLY 30 ML TUBE ONE (12:07)
--- NOTE | 2017-08-25 12:22 | Physician Advisory Note ---
Physician Advisor ProgressNote .: Pursuant to the plan for [facility], I have reviewed the medical record for this patient. Physician Advisor Statement: Please consider documenting, if you agree: 1. ? "suspected protein-calorie malnutrition [state mild, mod, or severe] with BMI 24.7, very low Cr, ____[?wt loss, ?appetite loss, ]" [if possible, give specifics on intake, wt loss, loss of SQ fat & muscle mass, diminished hand rv body mechanic strength, & clinical importance such as (A) nutritional assessment ordered, (B) modified diet or supplements ordered, (C) additional labs ordered, (D) prolonged wound healing time, (E) delayed infxn clearance] 2. Medical necessity: clinical reasons pt not yet felt stable for d/c home today (? b/c hyperglycemia & hypoglycemia, developing thrombocytopenia which could signal , frequent PRN need for IV Dilaudid, need to monitor longer than usual after I&D due to uncontrolled DM w/attendant increased risks for infxn complications, ...?) Thanks! CK
--- NOTE | 2017-08-25 12:32 | Operative Report ---
Nonrecallable Operative Report DATE OF SURGERY: 08/25/17 PREOPERATIVE DIAGNOSIS: recurrent left perirectal abscess POSTOPERATIVE DIAGNOSIS: same. left fistula in ano OPERATION: rigid proctosigmoidoscopy. 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
[2017-08-25] MEDS ORDERED: HYDROMORPHONE HCL INJ/PF 2 MG/ML AMPULE IV PRN (13:27)
[2017-08-25] MEDS ORDERED: NORMAL SALINE 1000 ML 1,000 ML IV PRN (13:27)
[2017-08-25 14:43] VITALS: BP 114/78
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
[2017-08-25] MEDS ORDERED: (PENDING PHARMACY ID) (Insulin Degludec [Tresiba Flextouch U-100] 30 UNIT) SQ SCH (22:00)
--- NOTE | 2017-08-26 12:15 | DISCHARGE SUMMARY E ---
Discharge Summary NAME: FRIDA ALMANZA : 1990 AGE: 26Y ADMITTED: 08/24/2017 DISCHARGED: 08/25/2017 FINAL DIAGNOSES: 1. Recurrent perirectal abscess. 2. Perirectal cellulitis. 3. Fistula in ano. PROCEDURE: On 08/25/2017, the patient underwent a rigid proctosigmoidectomy and a rectal fistulotomy. COMPLICATIONS: None. HOSPITAL COURSE: A 26-year-old female with a history of recurrent left-sided perirectal abscess, drained at least twice during the past 12 months, who presented to the emergency room complaining of fullness and pain and drainage in the left perirectal area. A decision was made to admit the patient, keep her on IV antibiotics and take her to surgery today to have a rigid proctosigmoidoscopy under general anesthesia. The procedure was uneventful. A fistula in ano was discovered and a fistulotomy was performed. The patient was then transferred to the floor and she was discharged home on the same day with followup appointment in the office within a week. She was given Tramadol 50 mg p.o. q. 6 as needed for pain and she was instructed to perform Sitz baths 3 times a day, starting tomorrow, 08/26. She was instructed not to perform any anal manipulations and to lightly pack the area with sponges coated with topical antibiotic ointment. The patient was discharged to home on the same day, 08/25/2017. She was given a regular diet and to resume activities as tolerated. DICTATING PHYSICIAN: JAMES MENDOZA M.D. [id number] Y#: [id number] ID: [id number] JOB#: [id number] ACCT: [id number] cc:JAMES MENDOZA M.D. >
== END 2017-08-25 15:38 | disposition home or self-care (01) | DRG 346 ==
LOC: ER 14:31 → INTOOBSV 20:54 → EH 20:54 → OBSVTOIN 20:54 → 2S 08-25 05:15
PROVIDERS: ADMIT Surgery; ATTEND Surgery
PROC: 0D9P8ZZ Drainage of Rectum, Via Natural or Artificial Opening Endoscopic (ICD-10-PCS; principal; 2017-08-25 11:30)
DX: K61.1 Rectal abscess (principal); E11.9 Type 2 diabetes mellitus without complications; K21.9 Gastro-esophageal reflux disease without esophagitis; F32.9 Major depressive disorder, single episode, unspecified; E10.9 Type 1 diabetes mellitus without complications; F17.210 Nicotine dependence, cigarettes, uncomplicated; F41.9 Anxiety disorder, unspecified; Z79.4 Long term (current) use of insulin; Z90.49 Acquired absence of other specified parts of digestive tract; Z88.6 Allergy status to analgesic agent; Z88.8 Allergy status to other drugs, medicaments and biological substances; Z91.19 Patient's noncompliance with other medical treatment and regimen; Z80.8 Family history of malignant neoplasm of other organs or systems
CPT/HCPCS: 36415; 76830; 80048; 80053; 81001; 81025; 82803; 82962; 85025; 87040; 87070; 87075; 87077; 87186; 87205; 87210; 87491; 87591; 902; 93976; 96361; 96365; 96375; 96376; 99285; J0131; J1100; J1170; J1815; J2250; J2405; J2543; J2704; J3010; J3490; J7030; S0028

== ENCOUNTER 2017-09-09 02:46 | Inpatient (IN) | payer MEDICAID ==
[2017-09-09] MEDS ORDERED: METOCLOPRAMIDE HCL INJ/PF 10 MG/2 ML SDV IV ONE (03:42)
--- NOTE | 2017-09-09 03:44 | ER Document Report ---
ED General - General Chief Complaint: High Blood Sugar Stated Complaint: ABDOMINAL PAIN Time Seen by Provider: 09/09/17 03:38 Notes: Patient is a 26-year-old female with a history of type 1 diabetes that comes emergency department for chief complaint of 2 days of vomiting. She states she has not been able to eat much, she states when this happens she tends to go into DKA. She denies fever, diarrhea, denies any other specific symptoms. She states she has been taking her insulin. The only other reported medical history of abscesses. She reports smoking, denies alcohol, denies recreational drugs. TRAVEL OUTSIDE OF THE [place] IN LAST 30 DAYS: No - Related Data Allergies/Adverse Reactions: aspirin Allergy (Mild, Verified 08/24/17 14:34) Hives ibuprofen Allergy (Mild, Verified 08/24/17 14:34) Hives tramadol Allergy (Mild, Verified 08/24/17 14:34) Hives ketorolac [From Toradol] Allergy (Verified 08/24/17 14:34) Past Medical History - General Information source: Patient - Social History Smoking Status: Current Some Day Smoker Frequency of alcohol use: None Drug Abuse: None Lives with: Family Family History: Reviewed & Not Pertinent, Malignancy, Thyroid Disfunction - Thyroid cancer - Past Medical History Cardiac Medical History: Denies: Hx Congestive Heart Failure, Hx DVT, Hx Heart Attack, Hx Hypercholesterolemia, Hx Hypertension, Hx Pulmonary Embolism Pulmonary Medical History: Denies: Hx Asthma, Hx COPD Neurological Medical History: Denies: Hx Seizures Endocrine Medical History: Reports: Hx Diabetes Mellitus Type 1 - Insulin- dependent, metformin, lantus, and novalog. Denies: Hx Hyperthyroidism, Hx Hypothyroidism Renal/ Medical History: Reports: Hx Kidney Stones, Hx Ovarian Cysts. Denies: Hx Peritoneal Dialysis GI Medical History: Reports: Hx Gastroesophageal Reflux Disease. Denies: Hx Cirrhosis, Hx Hepatitis Musculoskeltal Medical History: Denies Hx Arthritis, Reports Hx Musculoskeletal Deformity, Reports Hx Musculoskeletal Trauma Skin Medical History: Denies Hx Eczema, Denies Hx Psoriasis Psychiatric Medical History: Reports: Hx Anxiety Denies: Hx Depression Infectious Medical History: Denies: Hx Hepatitis Past Surgical History: Reports: Hx Cholecystectomy, Hx Oral Surgery - Dental surgery, Hx Tubal Ligation, Other - Incision and drainage of multiple perirectal abscesses - Immunizations Hx Diphtheria, Pertussis, Tetanus Vaccination: Yes - 2016 Review of Systems - Review of Systems Constitutional: See HPI EENT: No symptoms reported Cardiovascular: No symptoms reported Respiratory: No symptoms reported Gastrointestinal: See HPI Genitourinary: No symptoms reported Female Genitourinary: No symptoms reported Musculoskeletal: No symptoms reported Skin: No symptoms reported Hematologic/Lymphatic: No symptoms reported Neurological/Psychological: No symptoms reported Physical Exam - Vital signs Vitals: Pulse Resp BP Pulse Ox 137 H 23 H 145/94 H 100 09/09/17 02:58 09/09/17 02:58 09/09/17 02:58 09/09/17 02:58 - Notes Notes: GENERAL: Pale, tachypnea, very ill-appearing HEAD: Normocephalic, atraumatic. EYES: Pupils equal, round, and reactive to light. Extraocular movements intact. ENT: Oral mucosa moist, tongue midline. [Nares patent, no nasal septal hematoma , TM's intact.] NECK: Full range of motion. Supple. Trachea midline. LUNGS: Clear to auscultation bilaterally, no wheezes, rales, or rhonchi. Tachypnea HEART: Tachycardia, no murmur noted, normal rhythm ABDOMEN: Mild generalized tenderness, nonspecific, no guarding, no rigidity EXTREMITIES: Moves all 4 extremities spontaneously. No edema, normal radial and dorsalis pedis pulses bilaterally. No cyanosis. BACK: no cervical, thoracic, lumbar midline tenderness. No saddle anesthesia, normal distal neurovascular exam. NEUROLOGICAL: Alert and oriented x3. Normal speech. [cranial nerves II through XII grossly intact]. SKIN: Pale Course - Re-evaluation Re-evalutation: On initial evaluation patient with Kussmaul respirations, tachycardic, however she is alert and cooperative. Ill-appearing. Suspect patient has diabetic ketoacidosis. Starting IV fluids, workup pending. Venous blood gas showing pH of 6.89, low bicarbonate, consistent with severe diabetic ketoacidosis. Chemistry showing normal potassium, bicarbonate is not measurable, anion gap is not measurable. Patient immediately started on insulin drip, given amp of bicarbonate, starting a bicarbonate drip, continuing IV fluids. Patient remains cooperative and oriented on reevaluation. Continues to have Kussmaul respirations, continues to be tachycardic. Chest x- ray with no obvious abnormality, still pending a read, EKG shows normal QT interval. Giving dose of potassium at this time. Patient was discussed with Dr. Coy. CBC showed leukocytosis, elevated hemoglobin, suspect this is from vomiting and dehydration, no fever, no evidence of infectious source on initial evaluation. Patient reevaluated, improving, heart rate is improved, respiration slowing, her skin color is improving. Called and spoke with Dr. Odell, internal medicine, patient will be admitted to the ICU. He requests a central line be placed. X-ray confirmed central line in appropriate location with no evidence of complication. - Vital Signs Vital signs: Temp Pulse Resp BP Pulse Ox 97.5 F 137 H 27 H 114/83 100 09/09/17 05:10 09/09/17 02:58 09/09/17 06:31 09/09/17 06:31 09/09/17 06:31 - Laboratory Result Diagrams: 09/09/17 03:50 09/09/17 03:50 Laboratory results interpreted by me: 09/09/17 09/09/17 09/09/17 03:41 03:50 03:50 WBC 16.2 H RBC 5.31 H Hgb 16.7 H Hct 52.4 H MCV 99 H D MCHC 31.9 L RDW 15.8 H Absolute Neutrophils 11.8 H VBG pH VBG pCO2 VBG HCO3 Sodium 145.2 H Chloride 111 H Carbon Dioxide < 5 L* Glucose 467 H* POC Glucose 464 H* Alkaline Phosphatase 141 H 09/09/17 09/09/17 03:50 04:47 WBC RBC Hgb Hct MCV MCHC RDW Absolute Neutrophils VBG pH 6.89 L* VBG pCO2 22.4 L VBG HCO3 4.2 L Sodium Chloride Carbon Dioxide Glucose POC Glucose 450 H* Alkaline Phosphatase Procedures - Central Line right IJ Consent obtained: Yes Central line pre-insertion: Sterile PPE donned, Chloraprep applied, Sterile drapes applied Central line lumen type: Triple Anesthetic type: 1% Lidocaine mL's of anesthesia: 3 Ultrasound guided: Yes Line secured with sutures: Yes Central line post-insertion: Blood return from lumens, Biopatch applied, Sutured , Sterile dressing applied, Position confirmed w/ CXR Complications: No Critical Care Note - Critical Care Note Total time excluding time spent on procedures (mins): 50 - severe diabetic ketoacidosis Comments: Please allow 50 minutes of critical care time excluding time spent on procedures for evaluation and management of critically ill patient with severe diabetic ketoacidosis requiring multiple re-evaluations, insulin drip, bicarbonate drip, IV fluids. Interpretation of previous records, interpretation of laboratory results and decision making, consultation and admission to the ICU. Discharge - Discharge Clinical Impression: DKA (diabetic ketoacidoses) Qualifiers: Diabetes mellitus type: type 1 Diabetes mellitus complication detail: without coma Qualified Code(s): E10.10 - Type 1 diabetes mellitus with ketoacidosis without coma Vomiting Qualifiers: Vomiting type: unspecified Vomiting Intractability: non-intractable Nausea presence: with nausea Qualified Code(s): R11.2 - Nausea with vomiting, unspecified Condition: Serious Disposition: ADMITTED INPATIENT Admitting Provider: Hospitalist Unit Admitted: ICU
[2017-09-09] MEDS: NORMAL SALINE 1000 ML 1,000 ML IV PRN ×2 (03:49→03:50)
[2017-09-09 04:10] LABS: VENOUS BLOOD BASE EXCESS -28.2 mmol/L; VENOUS BLOOD HCO3 4.2 mmol/L (20-32); VENOUS BLOOD PCO2 22.4 mmHg (35-63)
[2017-09-09 04:13] LABS: VENOUS BLOOD PH 6.89 (7.30-7.42)
[2017-09-09 04:15] LABS: ABSOLUTE BASOPHILS # (AUTO) 0.2 10^3/uL (0.0-0.2); ABSOLUTE EOSINOPHILS # (AUTO) 0.1 10^3/uL (0.0-0.6); ABSOLUTE LYMPHOCYTES (AUTO) 3.6 10^3/uL (0.5-4.7); ABSOLUTE MONOCYTES (AUTO) 0.6 10^3/uL (0.1-1.4); ABSOLUTE NEUT (AUTO) 11.8 10^3/uL (1.7-8.2); ALANINE AMINOTRANSFERASE 25 U/L (9-52); ALBUMIN 4.6 g/dL (3.5-5.0); ALKALINE PHOSPHATASE 141 U/L (38-126); ASPARTATE AMINO TRANSFERASE 18 U/L (14-36); BASOPHILS % (AUTO) 1.2 % (0-2); BILIRUBIN,DIRECT 0.3 mg/dL (0.0-0.4); BILIRUBIN,TOTAL 0.3 mg/dL (0.2-1.3); BLOOD UREA NITROGEN 11 mg/dL (7-20); CALCIUM 8.6 mg/dL (8.4-10.2); CHLORIDE 111 mmol/L (98-107); EOSINOPHILS % (AUTO) 0.5 % (0-6); HEMATOCRIT 52.4 % (36.0-47.0); HEMOGLOBIN 16.7 g/dL (12.0-15.5); LYMPHOCYTES % (AUTO) 22.3 % (13-45); MEAN CORPUSCULAR HEMOGLOBIN 31.4 pg (27.0-33.4); MEAN CORPUSCULAR HGB CONC 31.9 g/dL (32.0-36.0); MONOCYTES % (AUTO) 3.5 % (3-13); PLATELET COUNT 402 10^3/uL (150-450); POTASSIUM 4.6 mmol/L (3.6-5.0); RED BLOOD COUNT 5.31 10^6/uL (3.72-5.28); RED CELL DISTRIBUTION WIDTH 15.8 % (11.5-14.0); SEGMENTED NEUTROPHILS % (AUTO) 72.5 % (42-78); SODIUM 145.2 mmol/L (137-145); TOTAL CELLS COUNTED % (AUTO) 100 %; TOTAL PROTEIN 7.6 g/dL (6.3-8.2); WHITE BLOOD COUNT 16.2 10^3/uL (4.0-10.5)
[2017-09-09] MEDS ORDERED: NORMAL SALINE 1000 ML 1,000 ML IV PRN (04:15)
[2017-09-09] MEDS ORDERED: RINGERS SOLUTION,LACTATED 1,000 ML IV ONE (04:16)
[2017-09-09] MEDS ORDERED: SODIUM BICARBONATE 8.4% INJ 50 MEQ/50 ML DISP.SYRIN IV ONE (04:18)
[2017-09-09] MEDS ORDERED: INSULIN REG, HUMAN 100 UNIT/ML 3 ML VIAL (PYX) ONE (04:23)
[2017-09-09] MEDS ORDERED: NORMAL SALINE 100 ML with INSULIN REGULAR, HUMAN 100 UNIT IV PRN ×6 (04:25→04:46)
[2017-09-09 04:27] LABS: MEAN CORPUSCULAR VOLUME 99 fl (80-97)
[2017-09-09 04:28] LABS: CARBON DIOXIDE < 5 mmol/L (22-30)
[2017-09-09 04:29] LABS: GLUCOSE 467 mg/dL (75-110)
[2017-09-09] MEDS ORDERED: POTASSIUM CHLORIDE 10 MEQ CAPSULE.ER PO ONE ×2 (04:33→18:30)
[2017-09-09] MEDS ORDERED: SODIUM BICARBONATE 8.4% INJ 50 MEQ/50 ML DISP.SYRIN ONE (04:41)
[2017-09-09] MEDS ORDERED: DEXTROSE 50%-WATER 25 GM/50 ML DISP.SYRIN IV PRN ×2 (04:46)
[2017-09-09] MEDS ORDERED: GLUCAGON,HUMAN RECOMB 1 MG INJ IM PRN (04:46)
[2017-09-09] MEDS ORDERED: MAG HYDROX/AL HYDROX/SIMETH SUSP 30 ML UDCUP PO PRN (04:46)
[2017-09-09] MEDS ORDERED: IPRATROPIUM/ALBUTEROL 0.5-2.5 MG/3 ML AMPUL NEB PRN (04:46)
[2017-09-09] MEDS ORDERED: DEXTROSE 40% GEL 15 GM TUBE PO PRN ×2 (04:46)
[2017-09-09] MEDS: DEXTROSE 5%-WATER 1000 ML 1,000 ML with SODIUM BICARBONATE 150 MEQ IV PRN ×4 (05:02→12:17)
[2017-09-09 05:09] LABS: PHOSPHORUS 4.1 mg/dL (2.5-4.5)
--- NOTE | 2017-09-09 05:58 | PDOC H&P ---
History of Present Illness Admission Date/PCP: 09/09/17 04:56 DENVER STAFFORD PA-C Patient complains of: Nausea and vomiting History of Present Illness: FRIDA ALMANZA is a 26 year old female with a history of type 1 diabetes, noncompliance, recurrent admissions for DKA, opiate and benzo seeking behavior, tobacco dependence. Patient presents the emergency room with 48 hours of polyuria, polydipsia, abdominal pain with nausea and vomiting of gastric content only. In the emergency room she is found to have tachypnea and uncontrolled hyperglycemia with an undetectable bicarbonate. ABG reveals a pH of 6.8. She admits medication and lifestyle indiscretion. She is placed on IV insulin, bicarbonate and referred to the hospitalist for admission. Past Medical History Cardiac Medical History: Denies: Congestive Heart Failure, DVT, Myocardial Infarction, Hyperlipidema, Hypertension, Pulmonary Embolism Pulmonary Medical History: Denies: Asthma, Chronic Obstructive Pulmonary Disease (COPD) Neurological Medical History: Denies: Seizures Endocrine Medical History: Reports: Diabetes Mellitus Type 1 - Insulin-dependent , metformin, lantus, and novalog Denies: Hyperthyroidism, Hypothyroidism GI Medical History: Reports: Gastroesophageal Reflux Disease Denies: Cirrhosis, Hepatitis Musculoskeltal Medical History: Denies: Arthritis Skin Medical History: Denies: Eczema, Psoriasis Psychiatric Medical History: Denies: Depression Past Surgical History Past Surgical History: Reports: Cholecystectomy, Tubal Ligation, Other - Incision and drainage of multiple perirectal abscesses Social History Information Source: Patient, [facility] Records Smoking Status: Unknown if Ever Smoked Frequency of Alcohol Use: Rare Hx Recreational Drug Use: No Drugs: None Hx Prescription Drug Abuse: No Family History Family History: Malignancy, Thyroid Disfunction - Thyroid cancer Parental Family History Reviewed: Yes Children Family History Reviewed: Yes Sibling(s) Family History Reviewed.: Yes Medication/Allergy Home Medications: Insulin Aspart [Novolog Insulin (Aspart) 100 unit/mL] 10 unit SQ BIDACBS Insulin Degludec [Tresiba Flextouch U-100] 30 unit SQ QHS 07/20/17 Amox Tr/Potassium Clavulanate [Augmentin 875-125 mg Tablet] 1 tab PO BID #20 tablet 08/25/17 Neomycn/Bacitrc/Polymyx/Pramox [Triple Antibiotic Plus Ointmnt] 30 gm TP TID #1 oint...g. 08/25/17 Tramadol HCl/Acetaminophen [Tramadol-Acetaminophn 37.5-325] 1 each PO Q6 PRN # 20 tablet 08/25/17 Allergies/Adverse Reactions: aspirin Allergy (Mild, Verified 08/24/17 14:34) Hives ibuprofen Allergy (Mild, Verified 08/24/17 14:34) Hives tramadol Allergy (Mild, Verified 08/24/17 14:34) Hives ketorolac [From Toradol] Allergy (Verified 08/24/17 14:34) Review of Systems ROS unobtainable: Due to mental status - Severe tachypnea, Other - Severe tachypnea Physical Exam Vital Signs: Temp Pulse Resp BP Pulse Ox 137 H 28 H 141/105 H 100 09/09/17 02:58 09/09/17 05:01 09/09/17 05:01 09/09/17 05:01 General appearance: PRESENT: disheveled, severe distress, thin. ABSENT: cooperative, hard of hearing Head exam: PRESENT: atraumatic, normocephalic Eye exam: PRESENT: conjunctiva pink, EOMI, PERRLA. ABSENT: scleral icterus Ear exam: PRESENT: normal external ear exam Mouth exam: PRESENT: dry mucosa, neck supple, tongue midline. ABSENT: laceration, moist Teeth exam: PRESENT: edentulous Neck exam: ABSENT: carotid bruit, JVD, lymphadenopathy, thyromegaly Respiratory exam: PRESENT: clear to auscultation adriel, symmetrical, tachypnea. ABSENT: rales, rhonchi, wheezes Cardiovascular exam: PRESENT: tachycardia. ABSENT: diastolic murmur, rubs, systolic murmur Pulses: PRESENT: normal dorsalis pedis pul Vascular exam: PRESENT: normal capillary refill GI/Abdominal exam: PRESENT: normal bowel sounds, soft. ABSENT: distended, guarding, mass, organolmegaly, rebound, tenderness Rectal exam: PRESENT: deferred, other - No evidence of active perirectal abscess , gluteal or perineal pain Extremities exam: PRESENT: full ROM. ABSENT: calf tenderness, clubbing, pedal edema Neurological exam: PRESENT: alert, awake, oriented to person, oriented to place , oriented to time, oriented to situation, CN II-XII grossly intact. ABSENT: motor sensory deficit Psychiatric exam: PRESENT: anxious Skin exam: PRESENT: dry, intact, warm. ABSENT: cyanosis, rash Assessment & Plan - Diagnosis (1) Diabetic ketoacidosis Qualifiers: Diabetes mellitus type: type 1 Diabetes mellitus complication detail: without coma Qualified Code(s): E10.10 - Type 1 diabetes mellitus with ketoacidosis without coma Is this a current diagnosis for this admission?: Yes Plan: Diabetic ketoacidosis patient has had some degree of polyuria polydipsia with nausea and uncontrolled hyperglycemia with supporting labs. Patient will receive IV fluids IV bicarbonate, IV insulin serial chemistries every 6 hours for evaluation for electrolyte repletion. Continued evaluation for underlying cause if not found Patient will require diabetic education and consideration of mental health evaluation. (2) Dehydration Is this a current diagnosis for this admission?: Yes Plan: Obtain improved IV access, aggressive IV fluid resuscitation - Time Time Spent: 50 to 70 Minutes - Inpatient Certification Medical Necessity: Need Close Monitoring Due to Risk of Patient Decompensation
[2017-09-09 06:41] LABS: APPEARANCE,URINE SLIGHTLY-CLOUDY; BILIRUBIN,URINE NEGATIVE (NEGATIVE); COLOR,URINE STRAW; GLUCOSE, URINE >=500 mg/dL (NEGATIVE); KETONES,URINE 80 mg/dL (NEGATIVE); LEUKOCYTE ESTERASE,URINE MODERATE (NEGATIVE); NITRITE,URINE NEGATIVE (NEGATIVE); PROTEIN,URINE 100 mg/dL (NEGATIVE); URINE SPECIFIC GRAVITY 1.015; UROBILINOGEN,URINE NEGATIVE mg/dL (<2.0)
--- NOTE | 2017-09-09 06:42 | RADIOLOGY REPORT (SQ) ---
EXAM DESCRIPTION: XR CHEST 1 VIEW COMPLETED DATE/TME: 09/09/2017 05:36 CLINICAL HISTORY: 26 years Female, s/p central line COMPARISON: One day prior. NUMBER OF VIEWS/TECHNIQUE: 1/AP FINDINGS: Adequate lung volume, clear parenchyma, normal cardiac silhouette, and right jugular central line tip at the upper right atrium. No pneumothorax. No acute bone defect. IMPRESSION: No significant change.
[2017-09-09 07:47] LABS: BLOOD UREA NITROGEN 11 mg/dL (7-20); CALCIUM 7.1 mg/dL (8.4-10.2); CHLORIDE 120 mmol/L (98-107); GLUCOSE 229 mg/dL (75-110); POTASSIUM 4.1 mmol/L (3.6-5.0)
[2017-09-09 07:53] LABS: SODIUM 150.5 mmol/L (137-145)
[2017-09-09 07:59] LABS: ANION GAP 22 (5-19)
[2017-09-09 08:01] LABS: CARBON DIOXIDE 9 mmol/L (22-30)
--- NOTE | 2017-09-09 09:08 | RADIOLOGY REPORT (SQ) ---
EXAM DESCRIPTION: XR CHEST 1 VIEW COMPLETED DATE/TME: 09/09/2017 04:24 CLINICAL HISTORY: 26 years Female, shortness of breath, vomiting COMPARISON: 4.10.18 NUMBER OF VIEWS/TECHNIQUE: 1/AP FINDINGS: Adequate lung volume, clear parenchyma, normal cardiac silhouette, and intact bony thorax. IMPRESSION: No acute cardiopulmonary findings.
[2017-09-09] MEDS: ACETAMINOPHEN 325 MG TABLET PO PRN ×2 (11:34→18:11)
[2017-09-09] MEDS: DOCUSATE SODIUM 100 MG CAPSULE PO SCH ×2 (11:38→18:02)
[2017-09-09 11:57] LABS: ANION GAP 13 (5-19); BLOOD UREA NITROGEN 9 mg/dL (7-20); CARBON DIOXIDE 15 mmol/L (22-30); CHLORIDE 117 mmol/L (98-107); GLUCOSE 84 mg/dL (75-110); SODIUM 144.6 mmol/L (137-145)
[2017-09-09 12:22] LABS: POTASSIUM 3.1 mmol/L (3.6-5.0)
[2017-09-09 12:23] LABS: VENOUS BLOOD BASE EXCESS -6.9 mmol/L; VENOUS BLOOD HCO3 16.9 mmol/L (20-32); VENOUS BLOOD PCO2 27.5 mmHg (35-63); VENOUS BLOOD PH 7.41 (7.30-7.42)
[2017-09-09] MEDS: POTASSI CL 20 MEQ/D5-1/2NS 1L 1,000 ML IV PRN ×2 (13:48→18:00)
[2017-09-09 17:01] LABS: ANION GAP 8 (5-19); BLOOD UREA NITROGEN 8 mg/dL (7-20); CARBON DIOXIDE 18 mmol/L (22-30); CHLORIDE 113 mmol/L (98-107); GLUCOSE 149 mg/dL (75-110); SODIUM 139.2 mmol/L (137-145)
[2017-09-09] MEDS: HEPARIN SOD (PORCINE) 5,000 UNIT/ML 1 ML SYRINGE SUBCUT SCH ×2 (17:27→22:06)
[2017-09-09 17:50] LABS: CALCIUM 6.8 mg/dL (8.4-10.2)
[2017-09-09 20:49] LABS: ANION GAP 5 (5-19); BLOOD UREA NITROGEN 7 mg/dL (7-20); CARBON DIOXIDE 22 mmol/L (22-30); CHLORIDE 112 mmol/L (98-107); GLUCOSE 167 mg/dL (75-110); POTASSIUM 3.2 mmol/L (3.6-5.0)
[2017-09-09 21:07] LABS: CALCIUM 6.8 mg/dL (8.4-10.2)
[2017-09-09] MEDS ORDERED: POTASSIUM CHLORIDE 20 MEQ/15 ML UDCUP PO ONE (21:11)
[2017-09-09] MEDS ORDERED: INSULIN DEGLUDEC 30 UNIT SQ SCH (22:00)
[2017-09-10] MEDS: HEPARIN SOD (PORCINE) 5,000 UNIT/ML 1 ML SYRINGE SUBCUT SCH ×3 (06:16→20:58)
[2017-09-10 06:41] LABS: ABSOLUTE BASOPHILS # (AUTO) 0.1 10^3/uL (0.0-0.2); ABSOLUTE EOSINOPHILS # (AUTO) 0.1 10^3/uL (0.0-0.6); ABSOLUTE LYMPHOCYTES (AUTO) 2.5 10^3/uL (0.5-4.7); ABSOLUTE MONOCYTES (AUTO) 0.3 10^3/uL (0.1-1.4); ABSOLUTE NEUT (AUTO) 3.3 10^3/uL (1.7-8.2); HEMATOCRIT 35.8 % (36.0-47.0); LYMPHOCYTES % (AUTO) 39.1 % (13-45); MEAN CORPUSCULAR HEMOGLOBIN 31.5 pg (27.0-33.4); MEAN CORPUSCULAR HGB CONC 34.2 g/dL (32.0-36.0); MONOCYTES % (AUTO) 5.1 % (3-13); PLATELET COUNT 201 10^3/uL (150-450); RED BLOOD COUNT 3.88 10^6/uL (3.72-5.28); SEGMENTED NEUTROPHILS % (AUTO) 52.8 % (42-78); TOTAL CELLS COUNTED % (AUTO) 100 %; WHITE BLOOD COUNT 6.3 10^3/uL (4.0-10.5)
[2017-09-10] MEDS ORDERED: INSULIN LISPRO 100 UNIT/ML 3 ML VIAL IV ONE (06:45)
[2017-09-10 06:51] LABS: HEMOGLOBIN 12.2 g/dL (12.0-15.5); MEAN CORPUSCULAR VOLUME 92 fl (80-97)
[2017-09-10 06:59] LABS: ANION GAP 11 (5-19); BLOOD UREA NITROGEN 4 mg/dL (7-20); CALCIUM 8.2 mg/dL (8.4-10.2); CARBON DIOXIDE 18 mmol/L (22-30); CHLORIDE 109 mmol/L (98-107); GLUCOSE 323 mg/dL (75-110); SODIUM 138.4 mmol/L (137-145)
[2017-09-10] MEDS ORDERED: (PENDING PHARMACY ID) (Insulin Aspart [Novolog Insulin (Aspart) 100 Unit/Ml] 10 UNITS) SQ SCH (08:00)
[2017-09-10] MEDS: INSULIN LISPRO 100 UNIT/ML 3 ML VIAL SUBCUT SCH ×3 (08:09→17:22)
[2017-09-10] MEDS: HUM INSULIN NPH/REG INSULIN HM 100 UNIT/1 ML 3 ML SUBCUT SCH ×2 (08:10→17:19)
--- NOTE | 2017-09-10 09:28 | EKG REPORT ---
SEVERITY:- ABNORMAL ECG - SINUS TACHYCARDIA NONSPECIFIC INTRAVENTRICULAR CONDUCTION DELAY : Confirmed by: Gurdeep Christensen MD 10-Sep-2017 09:27:41
[2017-09-10] MEDS: DOCUSATE SODIUM 100 MG CAPSULE PO SCH ×2 (09:34→17:20)
--- NOTE | 2017-09-10 15:06 | PDOC PROGRESS REPORT ---
Subjective Progress Note for:: 09/10/17 Subjective:: Patient was admitted with DKA and she was started on insulin drip. I did appears that she has recovered from this episode with resolution of acidosis and presenting symptoms. She admits to noncompliance with her medication as well as dietary indiscretions. Reason For Visit: DKA Physical Exam Vital Signs: Temp Pulse Resp BP Pulse Ox 98.3 F 68 15 112/66 99 09/10/17 12:00 09/10/17 12:00 09/10/17 14:00 09/10/17 12:08 09/10/17 12:00 Intake & Output 09/09/17 09/10/17 09/11/17 06:59 06:59 06:59 Intake Total 2864 1200 Output Total 1600 1800 Balance 1264 -600 Weight 67.3 kg General appearance: PRESENT: no acute distress, well-nourished Head exam: PRESENT: atraumatic, normocephalic Eye exam: PRESENT: conjunctiva pink, EOMI, PERRLA. ABSENT: scleral icterus Ear exam: PRESENT: normal external ear exam Mouth exam: PRESENT: moist, tongue midline Neck exam: ABSENT: carotid bruit, JVD, lymphadenopathy, thyromegaly Respiratory exam: PRESENT: clear to auscultation adriel. ABSENT: rales, rhonchi, wheezes Cardiovascular exam: PRESENT: RRR. ABSENT: diastolic murmur, rubs, systolic murmur Pulses: PRESENT: normal dorsalis pedis pul Vascular exam: PRESENT: normal capillary refill GI/Abdominal exam: PRESENT: normal bowel sounds, soft. ABSENT: distended, guarding, mass, organolmegaly, rebound, tenderness Rectal exam: PRESENT: deferred Extremities exam: PRESENT: full ROM. ABSENT: calf tenderness, clubbing, pedal edema Neurological exam: PRESENT: alert, awake, oriented to person, oriented to place , oriented to time, oriented to situation, CN II-XII grossly intact. ABSENT: motor sensory deficit Psychiatric exam: PRESENT: appropriate affect, normal mood. ABSENT: homicidal ideation, suicidal ideation Skin exam: PRESENT: dry, intact, warm. ABSENT: cyanosis, rash Results Laboratory Results: 09/10/17 06:30 09/10/17 06:30 09/09/17 09/09/17 09/09/17 16:00 16:00 20:00 WBC RBC Hgb Hct MCV MCH MCHC RDW Plt Count Seg Neutrophils % Lymphocytes % Monocytes % Eosinophils % Basophils % Absolute Neutrophils Absolute Lymphocytes Absolute Monocytes Absolute Eosinophils Absolute Basophils Sodium 139.2 139.0 Potassium 3.0 L* 3.2 L Chloride 113 H 112 H Carbon Dioxide 18 L 22 Anion Gap 8 5 BUN 8 7 Creatinine 0.35 L 0.31 L Est GFR ( Amer) > 60 > 60 Est GFR (Non-Af Amer) > 60 > 60 Glucose 149 H 167 H Calcium 6.8 L* 6.8 L* Albumin 2.4 L 09/09/17 09/10/17 09/10/17 20:00 06:00 06:00 WBC Cancelled RBC Cancelled Hgb Cancelled Hct Cancelled MCV Cancelled MCH Cancelled MCHC Cancelled RDW Cancelled Plt Count Cancelled Seg Neutrophils % Cancelled Lymphocytes % Cancelled Monocytes % Cancelled Eosinophils % Cancelled Basophils % Cancelled Absolute Neutrophils Cancelled Absolute Lymphocytes Cancelled Absolute Monocytes Cancelled Absolute Eosinophils Cancelled Absolute Basophils Cancelled Sodium Cancelled Potassium Cancelled Chloride Cancelled Carbon Dioxide Cancelled Anion Gap Cancelled BUN Cancelled Creatinine Cancelled Est GFR ( Amer) Cancelled Est GFR (Non-Af Amer) Cancelled Glucose Cancelled Calcium Cancelled Albumin 2.3 L 09/10/17 09/10/17 06:30 06:30 WBC 6.3 RBC 3.88 Hgb 12.2 D Hct 35.8 L MCV 92 D MCH 31.5 MCHC 34.2 RDW 15.0 H Plt Count 201 Seg Neutrophils % 52.8 Lymphocytes % 39.1 Monocytes % 5.1 Eosinophils % 2.0 Basophils % 1.0 Absolute Neutrophils 3.3 Absolute Lymphocytes 2.5 Absolute Monocytes 0.3 Absolute Eosinophils 0.1 Absolute Basophils 0.1 Sodium 138.4 Potassium 4.0 Chloride 109 H Carbon Dioxide 18 L Anion Gap 11 BUN 4 L Creatinine 0.40 L Est GFR ( Amer) > 60 Est GFR (Non-Af Amer) > 60 Glucose 323 H Calcium 8.2 L Albumin Impressions: Chest X-Ray 09/09/17 05:36 IMPRESSION: No significant change. Assessment & Plan - Diagnosis (1) Diabetic ketoacidosis Qualifiers: Diabetes mellitus type: type 1 Diabetes mellitus complication detail: without coma Qualified Code(s): E10.10 - Type 1 diabetes mellitus with ketoacidosis without coma Is this a current diagnosis for this admission?: Yes Plan: We will start on her home insulin regimen (2) Dehydration Is this a current diagnosis for this admission?: Yes Plan: Corrected - Time Time Spent with patient: 15-24 minutes Medications reviewed and adjusted accordingly: Yes Anticipated discharge: Home Within: within 24 hours - Inpatient Certification Based on my medical assessment, after consideration of the patient's comorbidities, presenting symptoms, or acuity I expect that the services needed warrant INPATIENT care.: Yes Medical Necessity: Need For IV Fluids, Risk of Complication if Not Cared For in Hospital - Plan Summary Plan Summary: Removed patient out of ICU monitor overnight with plans to discharge in a.m. if stable
[2017-09-10] MEDS ORDERED: INSULIN GLARGINE,HUM.REC.ANLOG 300 UNIT/3 ML INSULN.PEN SUBCUT SCH (22:00)
[2017-09-10] MEDS ORDERED: INSULIN GLARGINE,HUM.REC.ANLOG 1,000 UNIT/10 ML UNIT SUBCUT SCH (22:00)
[2017-09-11] MEDS: HEPARIN SOD (PORCINE) 5,000 UNIT/ML 1 ML SYRINGE SUBCUT SCH (06:31)
[2017-09-11] MEDS: INSULIN LISPRO 100 UNIT/ML 3 ML VIAL SUBCUT SCH ×2 (07:42→11:13)
[2017-09-11 08:18] VITALS: BP 123/68
[2017-09-11] MEDS: DOCUSATE SODIUM 100 MG CAPSULE PO SCH (09:33)
--- NOTE | 2017-09-11 09:43 | PDOC DISCHARGE SUMMARY ---
General - Admit/Disc Date/PCP Admission Date/Primary Care Provider: 09/09/17 04:56 DENVER STAFFORD PA-C Discharge Date: 09/11/17 - Discharge Diagnosis (1) Diabetic ketoacidosis Is this a current diagnosis for this admission?: Yes (2) Dehydration Is this a current diagnosis for this admission?: Yes (3) Vulvovaginitis essie albicans Is this a current diagnosis for this admission?: Yes - Additional Information Discharge Diet: Diabetic Discharge Activity: Activity As Tolerated Prescriptions: Fluconazole [Diflucan 100 mg Tablet] 100 mg PO DAILY #5 tablet Home Medications: Insulin Aspart [Novolog Insulin (Aspart) 100 unit/mL] 10 units SQ MEALS Insulin Degludec [Tresiba Flextouch U-100] 30 units SQ QHS 09/09/17 Fluconazole [Diflucan 100 mg Tablet] 100 mg PO DAILY #5 tablet 09/11/17 History of Present Illness Patient complains of: Patient was admitted with diabetic ketoacidosis. History of Present Illness: FRIDA ALMANZA is a 26 year old female Admitted with diabetic ketoacidosis, nausea vomiting and dehydration. Hospital Course Hospital Course: Patient was admitted with diabetic ketoacidosis. She has a history of type 1 diabetes, noncompliance and recurrent admissions for DKA. Was treated in the intensive care unit with insulin drip as well as hydration. Her acidosis has since resolved and patient appears to be back with to her baseline. She was also treated for vulvovaginitis with Diflucan. With resolution of presenting symptoms and no further has been planned patient is been discharged home with advised to be compliant with her medications and medical instructions. Physical Exam Vital Signs: Temp Pulse Resp BP Pulse Ox 97.7 F 72 16 123/68 98 09/11/17 08:17 09/11/17 08:17 09/11/17 08:17 09/11/17 08:17 09/11/17 08:17 Intake & Output 09/10/17 09/11/17 09/12/17 06:59 06:59 06:59 Intake Total 2864 2550 Output Total 1600 4700 Balance 1264 -2150 Weight 67.3 kg 67.2 kg General appearance: PRESENT: no acute distress, well-developed, well-nourished Head exam: PRESENT: atraumatic, normocephalic Eye exam: PRESENT: conjunctiva pink, EOMI, PERRLA. ABSENT: scleral icterus Ear exam: PRESENT: normal external ear exam Mouth exam: PRESENT: moist, tongue midline Neck exam: ABSENT: carotid bruit, JVD, lymphadenopathy, thyromegaly Respiratory exam: PRESENT: clear to auscultation adriel. ABSENT: rales, rhonchi, wheezes Cardiovascular exam: PRESENT: RRR. ABSENT: diastolic murmur, rubs, systolic murmur Pulses: PRESENT: normal dorsalis pedis pul Vascular exam: PRESENT: normal capillary refill GI/Abdominal exam: PRESENT: normal bowel sounds, soft. ABSENT: distended, guarding, mass, organolmegaly, rebound, tenderness Rectal exam: PRESENT: deferred Extremities exam: PRESENT: full ROM. ABSENT: calf tenderness, clubbing, pedal edema Neurological exam: PRESENT: alert, awake, oriented to person, oriented to place , oriented to time, oriented to situation, CN II-XII grossly intact. ABSENT: motor sensory deficit Psychiatric exam: PRESENT: appropriate affect, normal mood. ABSENT: homicidal ideation, suicidal ideation Skin exam: PRESENT: dry, intact, warm. ABSENT: cyanosis, rash Results Laboratory Results: 09/10/17 06:30 09/10/17 06:30 Impressions: Chest X-Ray 09/09/17 05:36 IMPRESSION: No significant change. Qualifiers - * PATIENT BEING DISCHARGED WITH ANY OF THE FOLLOWING DIAGNOSIS: No Plan Time Spent: Greater than 30 Minutes
[2017-09-11] MEDS ORDERED: FLUCONAZOLE 100 MG TABLET PO SCH (10:00)
== END 2017-09-11 12:20 | disposition home or self-care (01) | DRG 639 ==
LOC: ER 02:46 → EH 04:56 → ICU 14:30
PROVIDERS: ADMIT Internal Medicine; ATTEND Internal Medicine
PROC: 02H633Z Insertion of Infusion Device into Right Atrium, Percutaneous Approach (ICD-10-PCS; principal; 2017-09-09)
DX: E10.10 Type 1 diabetes mellitus with ketoacidosis without coma (principal); K21.9 Gastro-esophageal reflux disease without esophagitis; E86.0 Dehydration; B37.3 Candidiasis of vulva and vagina; F17.200 Nicotine dependence, unspecified, uncomplicated; Z91.19 Patient's noncompliance with other medical treatment and regimen; Z90.49 Acquired absence of other specified parts of digestive tract; Z79.82 Long term (current) use of aspirin; Z79.4 Long term (current) use of insulin; Z88.8 Allergy status to other drugs, medicaments and biological substances; Z80.8 Family history of malignant neoplasm of other organs or systems
CPT/HCPCS: 36415; 71045; 80048; 80053; 81001; 81025; 82040; 82803; 82962; 83036; 83735; 84100; 84703; 85025; 93005; 93010; 96361; 96374; 99291; C1751; J1644; J1815; J2765; J3480; J3490; J7030; J7060; J7120

== ENCOUNTER 2017-11-21 11:03 | Inpatient (IN) | payer MEDICAID ==
[2017-11-21] MEDS: RINGERS SOLUTION,LACTATED 1,000 ML IV PRN ×2 (11:10→11:35)
--- NOTE | 2017-11-21 11:14 | ER Document Report ---
ED General - General Chief Complaint: Unresponsive Stated Complaint: UNRESPONSIVE Time Seen by Provider: 11/21/17 11:10 Mode of Arrival: Stretcher Information source: [facility] Records TRAVEL OUTSIDE OF THE [place] IN LAST 30 DAYS: No - HPI Patient complains to provider of: Unresponsive Onset: Other - Related Data Allergies/Adverse Reactions: aspirin Allergy (Mild, Verified 09/09/17 11:13) Hives ibuprofen Allergy (Mild, Verified 09/09/17 11:13) Hives tramadol Allergy (Mild, Verified 09/09/17 11:13) Hives ketorolac [From Toradol] Allergy (Verified 09/09/17 11:13) Past Medical History - General Information source: [facility] Records - Social History Smoking Status: Unknown if Ever Smoked Family History: Reviewed & Not Pertinent, Malignancy, Thyroid Disfunction - Thyroid cancer - Past Medical History Cardiac Medical History: Denies: Hx Congestive Heart Failure, Hx DVT, Hx Heart Attack, Hx Hypercholesterolemia, Hx Hypertension, Hx Pulmonary Embolism Pulmonary Medical History: Denies: Hx Asthma, Hx COPD Neurological Medical History: Denies: Hx Seizures Endocrine Medical History: Reports: Hx Diabetes Mellitus Type 1. Denies: Hx Hyperthyroidism, Hx Hypothyroidism Renal/ Medical History: Reports: Hx Kidney Stones, Hx Ovarian Cysts. Denies: Hx Peritoneal Dialysis GI Medical History: Reports: Hx Gastroesophageal Reflux Disease. Denies: Hx Cirrhosis, Hx Hepatitis Musculoskeletal Medical History: Denies Hx Arthritis, Reports Hx Musculoskeletal Deformity, Reports Hx Musculoskeletal Trauma Skin Medical History: Denies Hx Eczema, Denies Hx Psoriasis Psychiatric Medical History: Reports: Hx Anxiety Denies: Hx Depression Infectious Medical History: Denies: Hx Hepatitis Past Surgical History: Reports: Hx Cholecystectomy, Hx Oral Surgery - Dental surgery, Hx Tubal Ligation, Other - Incision and drainage of multiple perirectal abscesses - Immunizations Hx Diphtheria, Pertussis, Tetanus Vaccination: Yes - 2016 Review of Systems - Review of Systems -: Yes ROS unobtainable due to patient's medical condition Physical Exam - Vital signs Vitals: Resp BP Pulse Ox 26 H 121/64 100 11/21/17 11:26 11/21/17 11:26 11/21/17 11:26 - General General appearance: Unresponsive In distress: Severe - HEENT Head: Normocephalic Eyes: Normal Conjunctiva: Normal Cornea: Normal Extraocular movements intact: No - Respiratory Respiratory status: Agonal respirations, Labored, Tachypnea Chest status: Nontender Breath sounds: Normal Chest palpation: Normal - Cardiovascular Rhythm: Tachycardia Heart sounds: Normal auscultation Murmur: No - Abdominal Inspection: Normal Distension: No distension Tenderness: Nontender Organomegaly: No organomegaly - Back Back: Normal - Extremities General upper extremity: Normal inspection, Nontender, Normal ROM, Normal strength General lower extremity: Normal inspection, Nontender, Normal ROM, Normal strength - Neurological Neuro grossly intact: No Cognition: Confused Preston Coma Scale Eye Opening: To Pain Preston Coma Scale Verbal: Incomprehensible Preston Coma Scale Motor: Localizes to Pain Preston Coma Scale Total: 9 - Psychological Associated symptoms: Other - unresponsive Course - Re-evaluation Re-evalutation: 11/21/17 11:51 26-year-old female who presents unresponsive dropped off by family members upfront told that she takes insulin. On examination this patient is shallow and rapidly breathing in a true small pattern approximately 40 times per minute, she is tachycardic to 130 bpm. She is essentially unresponsive at this time, she does localize to pain however. Because she does smell of ketones and has an elevated blood sugar will initiate fluid resuscitation. We will obtain CBC, VBG, urinalysis blood cultures. Reported that patient has a profound leukocytosis to greater than 40,000 at this time, she is modestly hypothermic will initiate antibiotics for this patient as well have obtain an EKG demonstrates some peaking of the T waves believe that she likely has an elevated potassium is likely safe for administration of IV insulin at this time, will dose 4 units IV insulin and then initiate insulin infusion. We will dose 0.1/kg per hour. 11/21/17 14:07 Patient's profound metabolic anion gap acidosis in addition to a lactic acidosis , initiated treatment with antibiotic, will repeat chemistry after having initiated insulin infusion, patient's VBG is profoundly acidotic at this time. Her mental status is modestly improved after administration of insulin, will plan for every blood sugar checks. Have initiated treatment with 1.5 A of bicarb at this time given her profound acidosis. Patient is received 3 L of fluid 2 L of lactated Ringer's and 1 L of normal saline. Spoke to Dr. Vonnie Chavarria who is in agreement at this time to admit this patient on ICU level of care, will plan for repeat VBG in addition a chemistry. We will initiate treatment also with potassium via IV pending repeat chemistry at this time. We will continue to monitor patient in emergency department and reassess as necessary however will plan to transition patient's care to the intensive care unit. - Vital Signs Vital signs: Temp Pulse Resp BP Pulse Ox 94.9 F L 30 H 96/65 L 98 11/21/17 13:31 11/21/17 13:31 11/21/17 13:31 11/21/17 13:31 - Laboratory Result Diagrams: 11/21/17 11:10 11/21/17 11:10 Laboratory results interpreted by me: 11/21/17 11/21/17 11/21/17 11:10 11:10 11:10 WBC 42.2 H* RBC 5.75 H Hgb 18.0 H Hct 58.5 H MCV 102 H D MCHC 30.8 L RDW 14.7 H Plt Count 498 H Band Neutrophils % 14 H Lymphocytes % (Manual) 9 L Abs Neuts (Manual) 34.2 H Abs Lymphs (Manual) 5.5 H Abs Monocytes (Manual) 2.5 H VBG pH 6.71 L* VBG pCO2 25.0 L VBG HCO3 3.1 L Sodium 149.8 H Chloride 113 H Carbon Dioxide < 5 L* Creatinine 2.08 H Est GFR ( Amer) 35 L Est GFR (Non-Af Amer) 29 L Glucose 579 H* Lactic Acid AST 65 H Alkaline Phosphatase 167 H Total Protein 9.3 H Urine Protein Urine Glucose (UA) Urine Ketones Urine Blood 11/21/17 11/21/17 11:36 11:54 WBC RBC Hgb Hct MCV MCHC RDW Plt Count Band Neutrophils % Lymphocytes % (Manual) Abs Neuts (Manual) Abs Lymphs (Manual) Abs Monocytes (Manual) VBG pH VBG pCO2 VBG HCO3 Sodium Chloride Carbon Dioxide Creatinine Est GFR ( Amer) Est GFR (Non-Af Amer) Glucose Lactic Acid 4.2 H AST Alkaline Phosphatase Total Protein Urine Protein 100 H Urine Glucose (UA) >=500 H Urine Ketones 80 H Urine Blood SMALL H Critical Care Note - Critical Care Note Total time excluding time spent on procedures (mins): 75 Discharge - Discharge Clinical Impression: Unresponsive, Acidosis Diabetic ketoacidosis associated with type 1 diabetes mellitus Qualifiers: Diabetes mellitus complication detail: with coma Qualified Code(s): E10.11 - Type 1 diabetes mellitus with ketoacidosis with coma Condition: Critical Disposition: ADMITTED INPATIENT Admitting Provider: Hospitalist Unit Admitted: ICU
[2017-11-21] MEDS ORDERED: NALOXONE HCL INJ 2 MG/2 ML DISP.SYRIN IV ONE (11:21)
[2017-11-21 11:29] LABS: MEAN CORPUSCULAR HEMOGLOBIN 31.4 pg (27.0-33.4); MEAN CORPUSCULAR HGB CONC 30.8 g/dL (32.0-36.0); PLATELET COUNT 498 10^3/uL (150-450); RED BLOOD COUNT 5.75 10^6/uL (3.72-5.28); RED CELL DISTRIBUTION WIDTH 14.7 % (11.5-14.0)
[2017-11-21] MEDS ORDERED: DEXTROSE 40% GEL 15 GM TUBE PO PRN ×2 (11:29)
[2017-11-21] MEDS ORDERED: GLUCAGON,HUMAN RECOMB 1 MG INJ IM PRN (11:29)
[2017-11-21] MEDS ORDERED: NORMAL SALINE 100 ML with INSULIN REGULAR, HUMAN 100 UNIT IV PRN ×4 (11:29→16:51)
[2017-11-21] MEDS ORDERED: DEXTROSE 50%-WATER 25 GM/50 ML DISP.SYRIN IV PRN ×2 (11:29)
[2017-11-21 11:32] LABS: HEMATOCRIT 58.5 % (36.0-47.0)
[2017-11-21 11:34] LABS: MEAN CORPUSCULAR VOLUME 102 fl (80-97)
[2017-11-21] MEDS ORDERED: CEFTRIAXONE INJ 1000 MG VIAL IV ONE (11:39)
[2017-11-21 11:44] LABS: BLOOD UREA NITROGEN 15 mg/dL (7-20); CALCIUM 8.7 mg/dL (8.4-10.2)
[2017-11-21 11:45] LABS: ALANINE AMINOTRANSFERASE 14 U/L (9-52); ALBUMIN 4.9 g/dL (3.5-5.0); ALKALINE PHOSPHATASE 167 U/L (38-126); ASPARTATE AMINO TRANSFERASE 65 U/L (14-36); BILIRUBIN,DIRECT 0.4 mg/dL (0.0-0.4); BILIRUBIN,TOTAL 0.4 mg/dL (0.2-1.3); CHLORIDE 113 mmol/L (98-107); LIPASE 171.4 U/L (23-300); POTASSIUM 4.5 mmol/L (3.6-5.0); SODIUM 149.8 mmol/L (137-145); TOTAL PROTEIN 9.3 g/dL (6.3-8.2)
--- NOTE | 2017-11-21 11:45 | RADIOLOGY REPORT (SQ) ---
EXAM DESCRIPTION: CHEST SINGLE VIEW COMPLETED DATE/TIME: 11/21/2017 11:35 am REASON FOR STUDY: unresponsive COMPARISON: 09/09/2017 EXAM PARAMETERS: NUMBER OF VIEWS: One view. TECHNIQUE: Single frontal radiographic view of the chest acquired. RADIATION DOSE: NA LIMITATIONS: None. FINDINGS: LUNGS AND PLEURA: Minimal basal parenchymal opacities. No pneumothorax. MEDIASTINUM AND HILAR STRUCTURES: No masses. Contour normal. HEART AND VASCULAR STRUCTURES: Heart normal in size. Normal vasculature. BONES: No acute findings. HARDWARE: None in the chest. OTHER: No other significant finding. IMPRESSION: Minimal basilar parenchymal opacities. TECHNICAL DOCUMENTATION: JOB ID: [id number] [employer]- All Rights Reserved Reading location - IP/workstation name: [email or web address]
[2017-11-21] MEDS ORDERED: INSULIN REG, HUMAN 100 UNIT/ML 3 ML VIAL (PYX) IV ONE (11:48)
[2017-11-21 11:51] LABS: ABSOLUTE LYMPHOCYTES# (MANUAL) 5.5 10^3/uL (0.5-4.7); ABSOLUTE MONOCYTES # (MANUAL) 2.5 10^3/uL (0.1-1.4); ABSOLUTE NEUTROPHILS# (MANUAL) 34.2 10^3/uL (1.7-8.2); BASOPHILS % (MANUAL) 0 % (0-2); EOSINOPHILS % (MANUAL) 0 % (0-6); LYMPHOCYTES % (MANUAL) 9 % (13-45); MONOCYTES % (MANUAL) 6 % (3-13); SEGMENTED NEUTROPHILS % (MAN) 67 % (42-78); TOTAL CELLS COUNTED 100
[2017-11-21 11:53] LABS: APPEARANCE,URINE SLIGHTLY-CLOUDY; BILIRUBIN,URINE NEGATIVE (NEGATIVE); COLOR,URINE YELLOW; GLUCOSE, URINE >=500 mg/dL (NEGATIVE); KETONES,URINE 80 mg/dL (NEGATIVE); LEUKOCYTE ESTERASE,URINE NEGATIVE (NEGATIVE); NITRITE,URINE NEGATIVE (NEGATIVE); PROTEIN,URINE 100 mg/dL (NEGATIVE); URINE SPECIFIC GRAVITY 1.018; UROBILINOGEN,URINE NEGATIVE mg/dL (<2.0)
[2017-11-21 11:58] LABS: ANISOCYTOSIS SLIGHT; PLATELET CLUMPS PRESENT; PLATELET COMMENT INCREASED
[2017-11-21 12:02] LABS: URINE AMPHETAMINES SCREEN NEGATIVE; URINE BARBITURATES SCREEN NEGATIVE; URINE BENZODIAZEPINES SCREEN NEGATIVE; URINE COCAINE SCREEN NEGATIVE; URINE MARIJUANA (THC) SCREEN NEGATIVE; URINE METHADONE SCREEN NEGATIVE; URINE PHENCYCLIDINE SCREEN NEGATIVE
[2017-11-21 12:03] LABS: CARBON DIOXIDE < 5 mmol/L (22-30); GLUCOSE 579 mg/dL (75-110)
[2017-11-21] MEDS ORDERED: RINGERS SOLUTION,LACTATED 1,000 ML IV ONE (12:06)
[2017-11-21 12:12] LABS: BAND NEUTROPHILS % (MANUAL) 14 % (3-5); WHITE BLOOD COUNT 42.2 10^3/uL (4.0-10.5)
[2017-11-21 12:32] LABS: VENOUS BLOOD BASE EXCESS -33.6 mmol/L; VENOUS BLOOD HCO3 3.1 mmol/L (20-32)
[2017-11-21 12:34] LABS: VENOUS BLOOD PH 6.71 (7.30-7.42)
[2017-11-21] MEDS ORDERED: DEXTROSE 5%-WATER 1000 ML 1,000 ML with SODIUM BICARBONATE 100 MEQ IV PRN ×2 (12:37)
[2017-11-21] MEDS ORDERED: POTASSI CL 40 MEQ/D5-1/2NS 1L 40 MEQ/1,000 ML RTUINJ IV PRN (13:07)
[2017-11-21] MEDS ORDERED: NORMAL SALINE 1000 ML 1,000 ML IV ONE (14:04)
[2017-11-21] MEDS ORDERED: ACETAMINOPHEN 650 MG SUPP.RECT PR PRN (14:05)
[2017-11-21] MEDS ORDERED: PROMETHAZINE HCL INJ 25 MG/1 ML VIAL IV PRN (14:05)
[2017-11-21] MEDS ORDERED: IPRATROPIUM/ALBUTEROL 0.5-2.5 MG/3 ML AMPUL NEB PRN (14:05)
[2017-11-21] MEDS ORDERED: ACETAMINOPHEN 325 MG TABLET PO PRN (14:05)
[2017-11-21] MEDS ORDERED: PHARMACY COMMUNICATION ORDER MC NR (14:15)
[2017-11-21] MEDS ORDERED: LORAZEPAM INJ 2 MG/1 ML VIAL IV PRN (14:16)
[2017-11-21 14:31] LABS: ARTERIAL BLOOD BASE EXCESS -18.7 mmol/L; ARTERIAL BLOOD H2CO3 0.44 mmol/L (1.05-1.35); ARTERIAL BLOOD PH 7.23 (7.35-7.45); ARTERIAL BLOOD PO2 57.8 mmHg (80-100); ARTERIAL BLOOD TOTAL CO2 6.5 mmol/L (21-25)
[2017-11-21 14:32] LABS: ARTERIAL BLOOD FIO2 ROOM AIR
[2017-11-21 14:35] LABS: ARTERIAL BLOOD PCO2 14.7 mmHg (35-45)
[2017-11-21 14:42] LABS: PROTHROMBIN TIME 14.8 SEC (11.4-15.4)
[2017-11-21 14:50] LABS: BLOOD UREA NITROGEN 15 mg/dL (7-20); CALCIUM 8.2 mg/dL (8.4-10.2); CHLORIDE 113 mmol/L (98-107); POTASSIUM 3.6 mmol/L (3.6-5.0); SODIUM 144.3 mmol/L (137-145)
[2017-11-21] MEDS ORDERED: LEVETIRACETAM 1000 MG/NACL-ISO 1,000 MG/100 ML RTUPB IV ONE (15:00)
[2017-11-21 15:05] LABS: ANION GAP 26 (5-19)
[2017-11-21] MEDS ORDERED: VANCOMYCIN HCL 0 MG in DEXTROSE 5%-WATER 250 ML IV NR (15:15)
[2017-11-21 15:18] LABS: CARBON DIOXIDE 5 mmol/L (22-30); GLUCOSE 521 mg/dL (75-110)
[2017-11-21] MEDS ORDERED: NORMAL SALINE 1000 ML 1,000 ML IV PRN (15:20)
[2017-11-21 15:32] LABS: ACETAMINOPHEN < 10 ug/mL (10-30); SALICYLATE < 1.0 mg/dL (2.0-20.0)
--- NOTE | 2017-11-21 15:40 | RADIOLOGY REPORT (SQ) ---
EXAM DESCRIPTION: CT HEAD WITHOUT COMPLETED DATE/TIME: 11/21/2017 2:47 pm REASON FOR STUDY: seizure, AMS COMPARISON: None. TECHNIQUE: Axial images acquired through the brain without intravenous contrast. Images reviewed wi th bone, brain and subdural windows. Images stored on PACS. All CT scanners at this facility use dose modulation, iterative reconstruction, and/or weight based d osing when appropriate to reduce radiation dose to as low as reasonably achievable (ALARA). [facility]: Dose Right [facility]: CareDose [facility]: Dose Right [facility]: Teradose 4D [facility]: Facishare RADIATION DOSE: CT Rad equipment meets quality standard of care and radiation dose reduction techniq ues were employed. CTDIvol: 53.2 mGy. DLP: 964 mGy-cm. mGy. LIMITATIONS: None. FINDINGS: VENTRICLES: Normal size and contour. CEREBRUM: No masses. No hemorrhage. No midline shift. No evidence for acute infarction. Normal gra y/white matter differentiation. No areas of low density in the white matter. CEREBELLUM: No masses. No hemorrhage. No alteration of density. No evidence for acute infarction. EXTRAAXIAL SPACES: No fluid collections. No masses. ORBITS AND GLOBE: No intra- or extraconal masses. Normal contour of globe without masses. CALVARIUM: No fracture. PARANASAL SINUSES: No fluid or mucosal thickening. SOFT TISSUES: No mass or hematoma. OTHER: No other significant finding. IMPRESSION: NORMAL BRAIN CT WITHOUT CONTRAST. EVIDENCE OF ACUTE STROKE: NO. COMMENT: Quality ID # [id number]: Final reports with documentation of one or more dose reduction techniques (e.g., Automated exposure control, adjustment of the mA and/or kV according to patient size, use of iterative reconstruction technique) TECHNICAL DOCUMENTATION: JOB ID: [id number] DC-69 2010 [employer]- All Rights Reserved Reading location - IP/workstation name: [email or web address]
[2017-11-21 15:52] LABS: PARTIAL THROMBOPLASTIN TIME 22.4 SEC (23.5-35.8)
--- NOTE | 2017-11-21 16:16 | OPERATIVE REPORT E ---
Operative Report NAME: FRIDA ALMANZA : 1990 AGE: 26Y DATE OF SURGERY: 11/21/2017 ROOM: 604 PREOPERATIVE DIAGNOSIS: Poor veins for IV access, and patient needed multiple medications for DKA. POSTOPERATIVE DIAGNOSIS: Poor veins for IV access, and patient needed multiple medications for DKA. OPERATION: Placement of left subclavian vein triple-lumen catheter. SURGEON: JAMES PANDA M.D. ANESTHESIA: Local. INDICATION: This is a 26-year-old female who was noted to be unresponsive, brought to the ED and noted to have elevated blood sugar. She needed a central line for multiple medications and blood drawing. DESCRIPTION OF PROCEDURE: The patient was placed in the Trendelenburg position. The left subclavian and neck areas were then prepped and draped in the usual sterile fashion. Local anesthesia infiltrated in the left infraclavicular area, and the subclavian vein punctured and guidewire passed through the needle towards the area of the superior vena cava. Entry site was then dilated and a triple-lumen catheter placed through the guidewire to a distance of about 15 cm. The guidewire was removed, and all the three ports aspirated blood easily and instilled saline easily. The catheter was then anchored to the skin with 3-0 silk. A Biopatch placed at the insertion site and a transparent dressing placed over the Biopatch and catheter. The patient tolerated the procedure well. A chest x-ray will be performed for placement. DICTATING PHYSICIAN: JAMES PANDA M.D. [id number] PHY#: [id number] ID: [id number] JOB#: [id number] ACCT: [id number] cc:JAMES PANDA M.D. >
--- NOTE | 2017-11-21 16:32 | PDOC H&P ---
History of Present Illness Admission Date/PCP: 11/21/17 13:26 DENVER STAFFORD PA-C History of Present Illness: FRIDA ALMANZA is a 26 year old female, well known to our service, with a past medical history significant for IDDM, DKA, chronic perirectal abscesses, and tobacco dependence who presented to the emergency department unresponsive via POV after having been found by a family member in her car for an unknown period of time. No other recent health history is provided. Evaluation in the emergency department revealed profound leukocytosis with a WBC of 42.2, Hgb/Hct 18/58.5, Plt 498, hypernatremia (149.8), bicarb <5, and reportable anion gap, BELKYS (Cr 2.08, BUN 35), glucose 579, elevated lactic acid ( 4.2), and CXR that revealed minimal bibasilar opacities. The patient was noted to be hypothermic with a core temperature of 94.6, tachycardia (HR 130), tachypnea (RR 30), and hypotension (96/65). She is referred to the hospitalist service for admission and management of DKA, sepsis, and hypothermia (likely environmentally induced, although, sepsis is considered). Past Medical History Cardiac Medical History: Reports: None Pulmonary Medical History: Reports: None EENT Medical History: Reports: None Neurological Medical History: Denies: Seizures Endocrine Medical History: Reports: Diabetes Mellitus Type 1 Denies: Hyperthyroidism, Hypothyroidism Renal/ Medical History: Reports: None Malignancy Medical History: Reports: None GI Medical History: Reports: Gastroesophageal Reflux Disease Denies: Cirrhosis, Hepatitis Musculoskeltal Medical History: Denies: Arthritis Skin Medical History: Reports: None Psychiatric Medical History: Reports: Tobacco Dependency Denies: Depression Traumatic Medical History: Reports: None Hematology: Reports: None Infectious Medical History: Reports: None Past Surgical History Past Surgical History: Reports: Cholecystectomy, Tubal Ligation, Other - Incision and drainage of multiple perirectal abscesses Social History Information Source: [facility] Records Lives with: Family Smoking Status: Current Every Day Smoker Cigarettes Packs Per Day: 1 Frequency of Alcohol Use: Rare Hx Recreational Drug Use: No Drugs: None Hx Prescription Drug Abuse: No - Advance Directive Resuscitation Status: Full Code Surrogate healthcare decision maker:: The patient's , Anshul Almanza, Family History Family History: Reviewed & Not Pertinent, Malignancy, Thyroid Disfunction - Thyroid cancer Parental Family History Reviewed: Yes Children Family History Reviewed: Yes Sibling(s) Family History Reviewed.: Yes Medication/Allergy Home Medications: Insulin Aspart [Novolog Insulin (Aspart) 100 unit/mL] 10 units SQ MEALS Insulin Degludec [Tresiba Flextouch U-100] 30 units SQ QHS 09/09/17 Allergies/Adverse Reactions: aspirin Allergy (Mild, Verified 09/09/17 11:13) Hives ibuprofen Allergy (Mild, Verified 09/09/17 11:13) Hives tramadol Allergy (Mild, Verified 09/09/17 11:13) Hives ketorolac [From Toradol] Allergy (Verified 09/09/17 11:13) Review of Systems ROS unobtainable: Due to mental status Physical Exam Vital Signs: Temp Pulse Resp BP Pulse Ox 94.9 F L 30 H 96/65 L 98 11/21/17 13:31 11/21/17 13:31 11/21/17 13:31 11/21/17 13:31 General appearance: PRESENT: disheveled, mild distress, thin, other - Obtunded Head exam: PRESENT: atraumatic, normocephalic Eye exam: PRESENT: conjunctiva pale, PERRLA Mouth exam: PRESENT: dry mucosa, other - Shallow ulcerations to the hard and soft palate; thick white plaques (thrush) Teeth exam: PRESENT: poor dentation Throat exam: PRESENT: post pharyngeal erythema Neck exam: PRESENT: full ROM. ABSENT: carotid bruit, JVD, lymphadenopathy, meningismus Respiratory exam: PRESENT: rhonchi - Throughout, symmetrical, tachypnea - 30's, unlabored, other - Kussmaul. ABSENT: rales, wheezes Cardiovascular exam: PRESENT: RRR, +S1, +S2, tachycardia Pulses: PRESENT: normal dorsalis pedis pul - thready Vascular exam: PRESENT: pallor, other - delayed GI/Abdominal exam: PRESENT: hypoactive bowel sounds, soft. ABSENT: distended, guarding, tenderness Rectal exam: PRESENT: deferred Extremities exam: ABSENT: pedal edema Neurological exam: PRESENT: other - Obtunded; did withdrawal from pain. Patient was able to answer that her throat hurt when asked what was bothering her, but then answers all other questions with "my throat." Moments later entered tonic-clonic seizure. Skin exam: PRESENT: pallor, other - Cold, pallor, delayed capillary refill. Noted to have multiple small abrasions to face.. ABSENT: warm Results Laboratory Results: 11/21/17 14:24 11/21/17 11/21/17 14:00 14:24 Carbonic Acid 0.44 L HCO3/H2CO3 Ratio 13:1 ABG pH 7.23 L ABG pCO2 14.7 L* ABG pO2 57.8 L ABG HCO3 6.0 L ABG O2 Saturation 86.0 L ABG Base Excess -18.7 FiO2 ROOM AIR Sodium 144.3 Potassium 3.6 Chloride 113 H Carbon Dioxide 5 L* Anion Gap 26 H BUN 15 Creatinine 1.25 Est GFR ( Amer) > 60 Est GFR (Non-Af Amer) 52 L Glucose 521 H* Calcium 8.2 L Magnesium 1.5 L Impressions: Chest X-Ray 11/21/17 11:13 IMPRESSION: Minimal basilar parenchymal opacities. Assessment & Plan - Diagnosis (1) Diabetic ketoacidosis Qualifiers: Diabetes mellitus type: type 1 Diabetes mellitus complication detail: with coma Qualified Code(s): E10.11 - Type 1 diabetes mellitus with ketoacidosis with coma Is this a current diagnosis for this admission?: Yes Plan: The patient received aggressive fluid rehydration by the ED provider; 2 L LR, 1 L normal saline, 1 L D5W w/ bicarb. She was also provided 4 units IV insulin followed by initiation of insulin drip. Repeat BMP reveals minimally improved DKA; sodium 144.3, potassium 3.6, HCO3 5, anion gap 26, creatinine 1.25, glucose 521 ABG reveals pH 7.23, PCO2 14.7, PO2 57.8, HCO3 6.0 Repeat EKG is pending The patient is admitted to the ICU on continuous cardiac telemetry. We will continue IV fluids; normal saline at 150 ml/hr Insulin drip with Accu-Cheks hourly; titrate per protocol We will monitor chemistries every 4 hours NPO currently. (2) SIRS (systemic inflammatory response syndrome) Is this a current diagnosis for this admission?: Yes Plan: The patient presents with SIRS; she is noted to be tachycardic (130s), tachypneic (30), hypotensive (90/65), hypothermic (94.5) with BELKYS (Cr 2.08), leukocytosis (42k), elevated lactic acid (4.2), decreased mental status, and poor capillary refill. The patient's symptoms and vital signs may be related to DKA, however, infection and environmental exposure are considered. Chest x-ray is benign. Urinalysis is unremarkable. Head CT is negative. The patient is noted to have significant thrush. The patient is empirically placed on IV Rocephin and vancomycin. We will consider need for LP to evaluate for meningitis. Blood and urine cultures are pending. (3) Hypothermia Qualifiers: Encounter type: initial encounter Qualified Code(s): T68.XXXA - Hypothermia , initial encounter Is this a current diagnosis for this admission?: Yes Plan: SIRS vs environmental exposure. The patient was found unresponsive in her car for an unknown period of time prior to arrival. She is placed on empiric antibiotics as described above. Warming blankets and bear hugger to maintain adequate body temperature. Delong catheter with core temperature probe in place. (4) Unresponsive Is this a current diagnosis for this admission?: Yes Plan: Unclear etiology; DKA versus postictal (observed to have seizure-like activity while in the emergency department) versus infectious process. The patient is protecting her airway at this time; will observe closely for need for intubation. Head CT is normal. Plan as above. Consider need for MRI or LP. Fall, seizure, aspiration precautions. (5) Convulsion Qualifiers: Convulsion type: unspecified Qualified Code(s): R56.9 - Unspecified convulsions Is this a current diagnosis for this admission?: Yes Plan: Likely secondary to severe DKA, although, cerebral edema r/t aggressive IV fluids (ruled out following stat head CT), and infectious processes are considered. No previous history of seizures. Head CT is benign. The patient was noted to have tonic-clonic movements while I was at bedside; was administered IV Ativan 2 mg immediately. Serum osmolality is pending. As needed Ativan ordered as needed for seizures. We will consider need for LP. (6) Leukocytosis Is this a current diagnosis for this admission?: Yes Plan: Inflammatory response secondary to DKA versus infectious process. Cultures and antibiotics as above. We will treat DKA as above. We will continue to monitor with daily CBC. (7) Type 1 diabetes mellitus Qualifiers: Diabetes mellitus complication status: with unspecified complications Qualified Code(s): E10.8 - Type 1 diabetes mellitus with unspecified complications Is this a current diagnosis for this admission?: Yes Plan: Hemoglobin A1c (September 2017) >14% Patient will benefit from the registered dietitian and the consumer educator prior to discharge. (8) Tobacco dependency Is this a current diagnosis for this admission?: Yes Plan: Continue with placement therapies are provided. - Time Time Spent: Greater than 70 Minutes Medications reviewed and adjusted accordingly: Yes - Inpatient Certification Based on my medical assessment, after consideration of the patient's comorbidities, presenting symptoms, or acuity I expect that the services needed warrant INPATIENT care.: Yes I certify that my determination is in accordance with my understanding of Medicare's requirements for reasonable and necessary INPATIENT services [42 CFR 412.3e].: Yes Medical Necessity: Need Close Monitoring Due to Risk of Patient Decompensation, Need For IV Fluids, Need For Continuous Telemetry Monitoring, Need for Neurological Checks, Need for IV Antibiotics, Risk of Complication if Not Cared For in Hospital
[2017-11-21] MEDS ORDERED: DEXAMETHASONE SOD PHOS INJ 10 MG/1 ML VIAL IV ONE (16:39)
[2017-11-21] MEDS ORDERED: POTASSI CL 20 MEQ/NS 1L 1,000 ML IV PRN (16:45)
[2017-11-21 17:50] LABS: BLOOD UREA NITROGEN 16 mg/dL (7-20); CALCIUM 7.9 mg/dL (8.4-10.2); CHLORIDE 117 mmol/L (98-107); GLUCOSE 332 mg/dL (75-110); SODIUM 144.1 mmol/L (137-145)
[2017-11-21 17:55] LABS: ANION GAP 18 (5-19)
--- NOTE | 2017-11-21 17:58 | RADIOLOGY REPORT (SQ) ---
EXAM DESCRIPTION: CHEST SINGLE VIEW COMPLETED DATE/TIME: 11/21/2017 4:30 pm REASON FOR STUDY: central line placement COMPARISON: 11/21/2017, 09/09/2017 EXAM PARAMETERS: NUMBER OF VIEWS: One view. TECHNIQUE: Single frontal radiographic view of the chest acquired. RADIATION DOSE: NA LIMITATIONS: None. FINDINGS: LUNGS AND PLEURA: There is now pulmonary vascular prominence and bibasilar consolidation a telectasis versus pneumonia. No gross pleural effusion. No pneumothorax. MEDIASTINUM AND HILAR STRUCTURES: No masses. Contour normal. HEART AND VASCULAR STRUCTURES: No cardiomegaly BONES: No acute findings. HARDWARE: Left subclavian triple lumen catheter tip superior vena cava OTHER: No other significant finding. IMPRESSION: Left triple-lumen catheter tip superior vena cava. No pneumothorax. Bibasilar consolidation with air bronchograms atelectasis versus pneumonia. Pulmonary vascular promi nence. TECHNICAL DOCUMENTATION: JOB ID: [id number] [employer]- All Rights Reserved Reading location - IP/workstation name: [email or web address]
[2017-11-21] MEDS ORDERED: CEFAZOLIN 2 GM/D5W RTU 2 GM/50 ML RTUPB IV SCH (18:00)
[2017-11-21] MEDS ORDERED: CEFAZOLIN SODIUM 2 GM in DEXTROSE 5%-WATER 100 ML IV SCH (18:00)
[2017-11-21 18:39] LABS: CARBON DIOXIDE 9 mmol/L (22-30); POTASSIUM 2.6 mmol/L (3.6-5.0)
[2017-11-21] MEDS: NYSTATIN 500000 UNIT/5 ML UDCUP PO SCH ×2 (18:45→22:47)
[2017-11-21] MEDS: CEFAZOLIN 2 GM/D5W RTU 2 GM/50 ML RTUPB IV SCH ×2 (18:45→23:25)
[2017-11-21] MEDS: VANCOMYCIN HCL 750 MG in DEXTROSE 5%-WATER 250 ML IV SCH (18:45)
[2017-11-21 18:52] LABS: ANION GAP 11 (5-19); BLOOD UREA NITROGEN 17 mg/dL (7-20); CARBON DIOXIDE 14 mmol/L (22-30); CHLORIDE 119 mmol/L (98-107); GLUCOSE 210 mg/dL (75-110); SODIUM 144.2 mmol/L (137-145)
[2017-11-21 18:54] LABS: POTASSIUM 2.4 mmol/L (3.6-5.0)
[2017-11-21] MEDS ORDERED: NORMAL SALINE INJ/PF 0.9% 10 ML SDV IV PRN (19:07)
[2017-11-21] MEDS: HEPARIN SOD (PORCINE) 5,000 UNIT/ML 1 ML SYRINGE SUBCUT SCH (21:00)
[2017-11-21] MEDS ORDERED: POTASSI CL 20 MEQ/50 ML RIDER 20 MEQ/50 ML RTUPB IV ONE ×2 (21:04→22:31)
[2017-11-21] MEDS ORDERED: LEVETIRACETAM 500 MG/NACL-ISO 500 MG/100 ML RTUPB IV SCH (22:00)
[2017-11-21 22:05] LABS: ANION GAP 17 (5-19); BLOOD UREA NITROGEN 16 mg/dL (7-20); CHLORIDE 116 mmol/L (98-107); GLUCOSE 367 mg/dL (75-110); SODIUM 142.8 mmol/L (137-145)
[2017-11-21 22:12] LABS: CARBON DIOXIDE 10 mmol/L (22-30); POTASSIUM 2.9 mmol/L (3.6-5.0)
[2017-11-21] MEDS: PANTOPRAZOLE SODIUM 40 MG VIAL IV SCH (22:48)
[2017-11-21] MEDS ORDERED: POTASSIUM CHLORIDE 10 MEQ CAPSULE.ER PO ONE (23:00)
[2017-11-21] MEDS ORDERED: POTASSI CL 40 MEQ/D5-1/2NS 1L 1000 ML IV PRN (23:19)
--- NOTE | 2017-11-21 23:57 | EKG REPORT ---
SEVERITY:- ABNORMAL ECG - SINUS TACHYCARDIA PROLONGED QT INTERVAL : Confirmed by: Renetta Finn 21-Nov-2017 23:57:02
--- NOTE | 2017-11-21 23:57 | EKG REPORT ---
SEVERITY:- ABNORMAL ECG - SINUS TACHYCARDIA NONSPECIFIC T ABNORMALITIES, LATERAL LEADS PROLONGED QT INTERVAL : Confirmed by: Renetta Finn 21-Nov-2017 23:56:50
[2017-11-22] MEDS ORDERED: INSULIN REG, HUMAN 100 UNIT/ML 3 ML VIAL (PYX) ONE (01:27)
[2017-11-22] MEDS: MAGNESIUM SULFATE 1 GM/D5W 100 ML IV SCH ×2 (01:40→04:24)
[2017-11-22 01:51] LABS: ANION GAP 10 (5-19); BLOOD UREA NITROGEN 15 mg/dL (7-20); CALCIUM 8.5 mg/dL (8.4-10.2); CARBON DIOXIDE 13 mmol/L (22-30); CHLORIDE 120 mmol/L (98-107); GLUCOSE 303 mg/dL (75-110); POTASSIUM 3.3 mmol/L (3.6-5.0); SODIUM 143.2 mmol/L (137-145)
[2017-11-22] MEDS ORDERED: POTASSIUM CHLORIDE 10 MEQ CAPSULE.ER PO ONE (03:00)
[2017-11-22] MEDS: VANCOMYCIN HCL 750 MG in DEXTROSE 5%-WATER 250 ML IV SCH (05:21)
[2017-11-22] MEDS: CEFAZOLIN 2 GM/D5W RTU 2 GM/50 ML RTUPB IV SCH (05:23)
[2017-11-22 05:44] LABS: ABSOLUTE LYMPHOCYTES (AUTO) 1.1 10^3/uL (0.5-4.7); ABSOLUTE MONOCYTES (AUTO) 0.8 10^3/uL (0.1-1.4); ABSOLUTE NEUT (AUTO) 13.6 10^3/uL (1.7-8.2); BASOPHILS % (AUTO) 0.2 % (0-2); HEMATOCRIT 35.8 % (36.0-47.0); HEMOGLOBIN 12.3 g/dL (12.0-15.5); LYMPHOCYTES % (AUTO) 7.3 % (13-45); MEAN CORPUSCULAR HEMOGLOBIN 31.2 pg (27.0-33.4); MEAN CORPUSCULAR HGB CONC 34.4 g/dL (32.0-36.0); MEAN CORPUSCULAR VOLUME 91 fl (80-97); MONOCYTES % (AUTO) 5.4 % (3-13); PLATELET COUNT 191 10^3/uL (150-450); RED BLOOD COUNT 3.95 10^6/uL (3.72-5.28); RED CELL DISTRIBUTION WIDTH 13.1 % (11.5-14.0); SEGMENTED NEUTROPHILS % (AUTO) 87.1 % (42-78); TOTAL CELLS COUNTED % (AUTO) 100 %; WHITE BLOOD COUNT 15.6 10^3/uL (4.0-10.5)
[2017-11-22 06:01] LABS: ALANINE AMINOTRANSFERASE 20 U/L (9-52); ALBUMIN 2.5 g/dL (3.5-5.0); ALKALINE PHOSPHATASE 82 U/L (38-126); ANION GAP 5 (5-19); ASPARTATE AMINO TRANSFERASE 24 U/L (14-36); BILIRUBIN,DIRECT 0.3 mg/dL (0.0-0.4); BILIRUBIN,TOTAL 0.3 mg/dL (0.2-1.3); BLOOD UREA NITROGEN 14 mg/dL (7-20); CALCIUM 8.7 mg/dL (8.4-10.2); CARBON DIOXIDE 17 mmol/L (22-30); CHLORIDE 120 mmol/L (98-107); GLUCOSE 175 mg/dL (75-110); POTASSIUM 4.2 mmol/L (3.6-5.0); SODIUM 142.4 mmol/L (137-145); TOTAL PROTEIN 4.9 g/dL (6.3-8.2)
[2017-11-22 08:54] LABS: BLOOD UREA NITROGEN 14 mg/dL (7-20); CALCIUM 8.6 mg/dL (8.4-10.2); CARBON DIOXIDE 18 mmol/L (22-30); CHLORIDE 121 mmol/L (98-107); GLUCOSE 126 mg/dL (75-110); POTASSIUM 4.7 mmol/L (3.6-5.0)
[2017-11-22 09:00] LABS: SODIUM 142.3 mmol/L (137-145)
[2017-11-22 09:05] LABS: ANION GAP 3 (5-19)
[2017-11-22] MEDS ORDERED: CEFTRIAXONE 2 GM/D5W RTU 2 GM/50 ML RTUPB IV SCH (10:00)
[2017-11-22] MEDS ORDERED: CEFTRIAXONE 1 GM/D5W RTU 1 GM/50 ML RTUPB IV SCH (10:00)
[2017-11-22] MEDS: PANTOPRAZOLE SODIUM 40 MG VIAL IV SCH (11:07)
[2017-11-22] MEDS: NICOTINE 21 MG/24 HR PATCH.TD24 TD SCH (11:07)
[2017-11-22] MEDS: HEPARIN SOD (PORCINE) 5,000 UNIT/ML 1 ML SYRINGE SUBCUT SCH ×2 (11:08→14:56)
[2017-11-22] MEDS: NYSTATIN 500000 UNIT/5 ML UDCUP PO SCH ×2 (11:09→14:56)
[2017-11-22] MEDS ORDERED: CEFTRIAXONE SODIUM 1,000 MG in NORMAL SALINE 50 ML IV SCH (12:00)
[2017-11-22] MEDS: CEFTRIAXONE SODIUM 2,000 MG in NORMAL SALINE 100 ML IV SCH (12:16)
[2017-11-22] MEDS ORDERED: MAG HYDROX/AL HYDROX/SIMETH SUSP 30 ML UDCUP PO PRN (16:30)
[2017-11-22] MEDS ORDERED: METOCLOPRAMIDE HCL ORAL SOLN 10 MG/10 ML UDCUP PO PRN (16:30)
[2017-11-22] MEDS ORDERED: LIDOCAINE 2% VISCOUS SOLN 20 ML UDCUP PO PRN (16:30)
[2017-11-22] MEDS ORDERED: RINGERS SOLUTION,LACTATED 1,000 ML IV ONE (16:30)
[2017-11-22 17:22] LABS: ANION GAP 13 (5-19); BLOOD UREA NITROGEN 14 mg/dL (7-20); CHLORIDE 115 mmol/L (98-107); SODIUM 137.4 mmol/L (137-145)
[2017-11-22 17:26] LABS: CARBON DIOXIDE 9 mmol/L (22-30); GLUCOSE 555 mg/dL (75-110); POTASSIUM 6.9 mmol/L (3.6-5.0)
[2017-11-22] MEDS ORDERED: NORMAL SALINE 1000 ML 1,000 ML IV PRN (18:21)
--- NOTE | 2017-11-22 18:36 | PDOC PROGRESS REPORT ---
Subjective Progress Note for:: 11/22/17 Subjective:: This is 26 years old female patient known case of insulin-dependent diabetes mellitus and history of recurrent admission for DKA presents with hyperglycemia and markedly leukocytosis of 42,000. While she was in ER patient was noticed to have tonic-clonic seizure. The admitting physician suspect that injected send patient empirically started on vancomycin and ceftriaxone. Today patient is awake alert oriented and responsive and she asks for food. But she has markedly elevated potassium with potassium of 6.9. Reason For Visit: DKA,SEPSIS,HYPOTHERMIA Physical Exam Vital Signs: Temp Pulse Resp BP Pulse Ox 99.4 F 108 H 35 H 92/50 L 100 11/21/17 15:45 11/22/17 14:00 11/22/17 13:22 11/22/17 13:22 11/22/17 13:22 Intake & Output 11/21/17 11/22/17 11/23/17 06:59 06:59 06:59 Intake Total 1193 100 Output Total 2145 450 Balance -952 -350 Weight 65.4 kg General appearance: PRESENT: no acute distress Head exam: PRESENT: atraumatic Eye exam: PRESENT: conjunctiva pink Mouth exam: PRESENT: moist Teeth exam: PRESENT: edentulous Neck exam: ABSENT: carotid bruit, JVD, lymphadenopathy, thyromegaly Respiratory exam: PRESENT: clear to auscultation adriel. ABSENT: rales, rhonchi, wheezes Cardiovascular exam: PRESENT: RRR. ABSENT: diastolic murmur, rubs, systolic murmur Neurological exam: PRESENT: alert, awake, oriented to time, oriented to situation, reflexes normal Psychiatric exam: PRESENT: normal mood Results Laboratory Results: 11/22/17 05:00 11/21/17 11/21/17 11/21/17 16:15 18:15 21:05 WBC RBC Hgb Hct MCV MCH MCHC RDW Plt Count Seg Neutrophils % Lymphocytes % Monocytes % Eosinophils % Basophils % Absolute Neutrophils Absolute Lymphocytes Absolute Monocytes Absolute Eosinophils Absolute Basophils Sodium 144.1 144.2 142.8 Potassium 2.6 L* D 2.4 L* 2.9 L* Chloride 117 H 119 H 116 H Carbon Dioxide 9 L* 14 L 10 L* Anion Gap 18 11 17 BUN 16 17 16 Creatinine 1.03 0.97 1.06 Est GFR ( Amer) > 60 > 60 > 60 Est GFR (Non-Af Amer) > 60 > 60 > 60 Glucose 332 H 210 H 367 H Calcium 7.9 L 8.0 L 8.0 L Magnesium Total Bilirubin AST ALT Alkaline Phosphatase Total Protein Albumin 11/22/17 11/22/17 11/22/17 01:15 05:00 05:00 WBC 15.6 H RBC 3.95 Hgb 12.3 D Hct 35.8 L MCV 91 D MCH 31.2 MCHC 34.4 RDW 13.1 Plt Count 191 Seg Neutrophils % 87.1 H Lymphocytes % 7.3 L Monocytes % 5.4 Eosinophils % 0.0 Basophils % 0.2 Absolute Neutrophils 13.6 H Absolute Lymphocytes 1.1 Absolute Monocytes 0.8 Absolute Eosinophils 0.0 Absolute Basophils 0.0 Sodium 143.2 142.4 Potassium 3.3 L 4.2 Chloride 120 H 120 H Carbon Dioxide 13 L 17 L Anion Gap 10 5 BUN 15 14 Creatinine 1.08 0.94 Est GFR ( Amer) > 60 > 60 Est GFR (Non-Af Amer) > 60 > 60 Glucose 303 H 175 H Calcium 8.5 8.7 Magnesium Total Bilirubin 0.3 AST 24 ALT 20 Alkaline Phosphatase 82 Total Protein 4.9 L Albumin 2.5 L 11/22/17 11/22/17 11/22/17 08:25 08:25 15:50 WBC RBC Hgb Hct MCV MCH MCHC RDW Plt Count Seg Neutrophils % Lymphocytes % Monocytes % Eosinophils % Basophils % Absolute Neutrophils Absolute Lymphocytes Absolute Monocytes Absolute Eosinophils Absolute Basophils Sodium 142.3 Cancelled Potassium 4.7 Cancelled Chloride 121 H Cancelled Carbon Dioxide 18 L Cancelled Anion Gap 3 L Cancelled BUN 14 Cancelled Creatinine 1.00 Cancelled Est GFR ( Amer) > 60 Cancelled Est GFR (Non-Af Amer) > 60 Cancelled Glucose 126 H Cancelled Calcium 8.6 Cancelled Magnesium 2.3 Total Bilirubin AST ALT Alkaline Phosphatase Total Protein Albumin 11/22/17 17:00 WBC RBC Hgb Hct MCV MCH MCHC RDW Plt Count Seg Neutrophils % Lymphocytes % Monocytes % Eosinophils % Basophils % Absolute Neutrophils Absolute Lymphocytes Absolute Monocytes Absolute Eosinophils Absolute Basophils Sodium 137.4 Potassium 6.9 H* D Chloride 115 H Carbon Dioxide 9 L* Anion Gap 13 BUN 14 Creatinine 1.21 Est GFR ( Amer) > 60 Est GFR (Non-Af Amer) 54 L Glucose 555 H* Calcium 9.0 Magnesium Total Bilirubin AST ALT Alkaline Phosphatase Total Protein Albumin 11/21/17 11/21/17 11/22/17 16:15 16:15 04:10 Creatine Kinase 51 Troponin I < 0.012 < 0.012 Impressions: Head CT 11/21/17 00:00 IMPRESSION: NORMAL BRAIN CT WITHOUT CONTRAST. EVIDENCE OF ACUTE STROKE: NO. Chest X-Ray 11/21/17 15:33 IMPRESSION: Left triple-lumen catheter tip superior vena cava. No pneumothorax. Bibasilar consolidation with air bronchograms atelectasis versus pneumonia. Pulmonary vascular prominence. Assessment & Plan - Diagnosis (1) DKA (diabetic ketoacidoses) Qualifiers: Diabetes mellitus type: type 1 Is this a current diagnosis for this admission?: Yes Plan: Patient has been on insulin drip and normal saline at rate of 1 25 mL/h. Stat BMP is requested. (2) New onset seizure Is this a current diagnosis for this admission?: Yes Plan: Etiology unclear. In the face of markedly elevated leukocytosis and a conversion the possibility of meningitis considered and patient has been on empirically on vancomycin and ceftriaxone LP is pending. (3) Candidiasis of mouth Is this a current diagnosis for this admission?: Yes Plan: Patient complains of odynophagia so she is started on Diflucan.
[2017-11-22 18:47] LABS: ANION GAP 13 (5-19); BLOOD UREA NITROGEN 14 mg/dL (7-20); CALCIUM 8.8 mg/dL (8.4-10.2); CHLORIDE 115 mmol/L (98-107); SODIUM 137.1 mmol/L (137-145)
[2017-11-22 18:54] LABS: GLUCOSE 471 mg/dL (75-110)
[2017-11-22 18:55] LABS: CARBON DIOXIDE 9 mmol/L (22-30); POTASSIUM 5.1 mmol/L (3.6-5.0)
[2017-11-22] MEDS ORDERED: NORMAL SALINE 1000 ML 1,000 ML IV SCH (19:15)
[2017-11-22 20:32] LABS: ARTERIAL BLOOD BASE EXCESS -12.4 mmol/L; ARTERIAL BLOOD H2CO3 0.57 mmol/L (1.05-1.35); ARTERIAL BLOOD HCO3 10.7 mmol/L (20-24); ARTERIAL BLOOD O2 SATURATION 97.8 % (94-98); ARTERIAL BLOOD PH 7.37 (7.35-7.45); ARTERIAL BLOOD TOTAL CO2 11.3 mmol/L (21-25)
[2017-11-22 20:33] LABS: ARTERIAL BLOOD FIO2 ROOM AIR
[2017-11-22 20:34] LABS: ARTERIAL BLOOD PCO2 18.8 mmHg (35-45)
--- NOTE | 2017-11-22 21:37 | EKG REPORT ---
SEVERITY:- OTHERWISE NORMAL ECG - SINUS TACHYCARDIA : Confirmed by: Renetta Finn 22-Nov-2017 21:36:35
[2017-11-22 22:42] LABS: BLOOD UREA NITROGEN 13 mg/dL (7-20); CALCIUM 9.4 mg/dL (8.4-10.2); GLUCOSE 111 mg/dL (75-110)
[2017-11-22 23:05] LABS: ANION GAP 5 (5-19); CHLORIDE 116 mmol/L (98-107); SODIUM 139.4 mmol/L (137-145)
[2017-11-22 23:09] LABS: CARBON DIOXIDE 18 mmol/L (22-30); POTASSIUM 3.8 mmol/L (3.6-5.0)
[2017-11-22] MEDS ORDERED: POTASSI CL 20 MEQ/D5-1/2NS 1L 1,000 ML IV ONE (23:33)
[2017-11-23] MEDS ORDERED: POTASSI CL 20 MEQ/D5-1/2NS 1L 1,000 ML IV ONE ×2 (03:33→07:54)
[2017-11-23] MEDS ORDERED: POTASSI CL 20 MEQ/D5-1/2NS 1L 1000 ML IV PRN (03:37)
[2017-11-23 04:58] LABS: ANION GAP 5 (5-19); BLOOD UREA NITROGEN 12 mg/dL (7-20); CALCIUM 8.2 mg/dL (8.4-10.2); CARBON DIOXIDE 17 mmol/L (22-30); CHLORIDE 118 mmol/L (98-107); GLUCOSE 190 mg/dL (75-110); POTASSIUM 3.7 mmol/L (3.6-5.0); SODIUM 140.4 mmol/L (137-145)
[2017-11-23 06:11] LABS: ABSOLUTE EOSINOPHILS # (AUTO) 0.1 10^3/uL (0.0-0.6); ABSOLUTE LYMPHOCYTES (AUTO) 1.7 10^3/uL (0.5-4.7); ABSOLUTE MONOCYTES (AUTO) 0.4 10^3/uL (0.1-1.4); ABSOLUTE NEUT (AUTO) 8.8 10^3/uL (1.7-8.2); BASOPHILS % (AUTO) 0.2 % (0-2); EOSINOPHILS % (AUTO) 0.8 % (0-6); HEMATOCRIT 31.6 % (36.0-47.0); LYMPHOCYTES % (AUTO) 15.4 % (13-45); MEAN CORPUSCULAR HEMOGLOBIN 31.7 pg (27.0-33.4); MEAN CORPUSCULAR HGB CONC 34.7 g/dL (32.0-36.0); MEAN CORPUSCULAR VOLUME 92 fl (80-97); MONOCYTES % (AUTO) 3.6 % (3-13); PLATELET COUNT 151 10^3/uL (150-450); RED BLOOD COUNT 3.45 10^6/uL (3.72-5.28); RED CELL DISTRIBUTION WIDTH 13.2 % (11.5-14.0); TOTAL CELLS COUNTED % (AUTO) 100 %; WHITE BLOOD COUNT 11.1 10^3/uL (4.0-10.5)
[2017-11-23 06:36] LABS: ALANINE AMINOTRANSFERASE 15 U/L (9-52); ALBUMIN 2.1 g/dL (3.5-5.0); ALKALINE PHOSPHATASE 71 U/L (38-126); ANION GAP 5 (5-19); ASPARTATE AMINO TRANSFERASE 15 U/L (14-36); BILIRUBIN,DIRECT 0.3 mg/dL (0.0-0.4); BILIRUBIN,TOTAL 0.3 mg/dL (0.2-1.3); BLOOD UREA NITROGEN 11 mg/dL (7-20); CALCIUM 8.9 mg/dL (8.4-10.2); CARBON DIOXIDE 19 mmol/L (22-30); CHLORIDE 117 mmol/L (98-107); GLUCOSE 153 mg/dL (75-110); POTASSIUM 3.9 mmol/L (3.6-5.0); SODIUM 140.7 mmol/L (137-145); TOTAL PROTEIN 4.4 g/dL (6.3-8.2)
[2017-11-23] MEDS: VANCOMYCIN HCL 750 MG in DEXTROSE 5%-WATER 250 ML IV SCH ×2 (07:28→17:52)
[2017-11-23] MEDS: NYSTATIN 500000 UNIT/5 ML UDCUP PO SCH ×4 (07:28→17:52)
[2017-11-23] MEDS: FLUCONAZOLE 200 MG/NS RTU 200 MG/100 ML RTUPB IV SCH ×2 (07:29→11:29)
[2017-11-23] MEDS: HEPARIN SOD (PORCINE) 5,000 UNIT/ML 1 ML SYRINGE SUBCUT SCH ×2 (07:29→15:41)
[2017-11-23] MEDS: PANTOPRAZOLE SODIUM 40 MG VIAL IV SCH ×2 (07:29→11:29)
[2017-11-23] MEDS ORDERED: INSULIN GLARGINE,HUM.REC.ANLOG 1,000 UNIT/10 ML UNIT SUBCUT ONE (07:54)
--- NOTE | 2017-11-23 10:04 | PDOC PROGRESS REPORT ---
Subjective Progress Note for:: 11/23/17 Subjective:: I seen patient resting in bed comfortably. She reported she has a restful night. She is eating well and she tolerates well. Her last blood sugar is 153 , anion gap 5 and her creatinine is 1.02, her white cell count dramatically dropped from 40,000-11,042 days. On the day of admission patient had an episode of convention but no more seizure witnessed after admission. Patient has been on vancomycin and ceftriaxone empirically for suspected meningitis. Lumbar puncture is requested and is pending. The leukocytosis might be due to DKA and the rapid correction of the leukocytosis is unlikely for infectious process. Reason For Visit: DKA,SEPSIS,HYPOTHERMIA Physical Exam Vital Signs: Temp Pulse Resp BP Pulse Ox 99.4 F 103 H 25 H 99/66 L 99 11/21/17 15:45 11/23/17 08:40 11/23/17 08:40 11/23/17 07:55 11/23/17 08:40 Intake & Output 11/22/17 11/23/17 11/24/17 06:59 06:59 06:59 Intake Total 1193 665 350 Output Total 2145 1050 1200 Balance -952 -385 -850 Weight 65.4 kg 69.1 kg General appearance: PRESENT: no acute distress Head exam: PRESENT: atraumatic Eye exam: PRESENT: conjunctiva pink Neck exam: ABSENT: carotid bruit, JVD, lymphadenopathy, thyromegaly Respiratory exam: PRESENT: clear to auscultation adriel. ABSENT: rales, rhonchi, wheezes Cardiovascular exam: PRESENT: RRR. ABSENT: diastolic murmur, rubs, systolic murmur GI/Abdominal exam: PRESENT: normal bowel sounds, soft. ABSENT: distended, guarding, mass, organolmegaly, rebound, tenderness Neurological exam: PRESENT: alert, awake, oriented to time, oriented to situation Psychiatric exam: PRESENT: normal mood Results Laboratory Results: 11/23/17 05:50 11/23/17 05:50 11/22/17 11/22/17 11/22/17 08:25 15:50 17:00 WBC RBC Hgb Hct MCV MCH MCHC RDW Plt Count Seg Neutrophils % Lymphocytes % Monocytes % Eosinophils % Basophils % Absolute Neutrophils Absolute Lymphocytes Absolute Monocytes Absolute Eosinophils Absolute Basophils Carbonic Acid HCO3/H2CO3 Ratio ABG pH ABG pCO2 ABG pO2 ABG HCO3 ABG O2 Saturation ABG Base Excess FiO2 Sodium Cancelled 137.4 Potassium Cancelled 6.9 H* D Chloride Cancelled 115 H Carbon Dioxide Cancelled 9 L* Anion Gap Cancelled 13 BUN Cancelled 14 Creatinine Cancelled 1.21 Est GFR ( Amer) Cancelled > 60 Est GFR (Non-Af Amer) Cancelled 54 L Glucose Cancelled 555 H* Calcium Cancelled 9.0 Magnesium 2.3 Total Bilirubin AST ALT Alkaline Phosphatase Total Protein Albumin 11/22/17 11/22/17 11/22/17 18:15 19:17 22:00 WBC RBC Hgb Hct MCV MCH MCHC RDW Plt Count Seg Neutrophils % Lymphocytes % Monocytes % Eosinophils % Basophils % Absolute Neutrophils Absolute Lymphocytes Absolute Monocytes Absolute Eosinophils Absolute Basophils Carbonic Acid 0.57 L HCO3/H2CO3 Ratio 18:1 ABG pH 7.37 ABG pCO2 18.8 L* ABG pO2 104.0 H ABG HCO3 10.7 L ABG O2 Saturation 97.8 ABG Base Excess -12.4 FiO2 ROOM AIR Sodium 137.1 139.4 Potassium 5.1 H D 3.8 D Chloride 115 H 116 H Carbon Dioxide 9 L* 18 L Anion Gap 13 5 BUN 14 13 Creatinine 1.15 1.15 Est GFR ( Amer) > 60 > 60 Est GFR (Non-Af Amer) 57 L 57 L Glucose 471 H* 111 H Calcium 8.8 9.4 Magnesium Total Bilirubin AST ALT Alkaline Phosphatase Total Protein Albumin 11/23/17 11/23/17 11/23/17 04:15 05:50 05:50 WBC 11.1 H RBC 3.45 L Hgb 11.0 L Hct 31.6 L MCV 92 MCH 31.7 MCHC 34.7 RDW 13.2 Plt Count 151 Seg Neutrophils % 80.0 H Lymphocytes % 15.4 Monocytes % 3.6 Eosinophils % 0.8 Basophils % 0.2 Absolute Neutrophils 8.8 H Absolute Lymphocytes 1.7 Absolute Monocytes 0.4 Absolute Eosinophils 0.1 Absolute Basophils 0.0 Carbonic Acid HCO3/H2CO3 Ratio ABG pH ABG pCO2 ABG pO2 ABG HCO3 ABG O2 Saturation ABG Base Excess FiO2 Sodium 140.4 140.7 Potassium 3.7 3.9 Chloride 118 H 117 H Carbon Dioxide 17 L 19 L Anion Gap 5 5 BUN 12 11 Creatinine 1.02 1.09 Est GFR ( Amer) > 60 > 60 Est GFR (Non-Af Amer) > 60 > 60 Glucose 190 H 153 H Calcium 8.2 L 8.9 Magnesium Total Bilirubin 0.3 AST 15 ALT 15 Alkaline Phosphatase 71 Total Protein 4.4 L Albumin 2.1 L 11/21/17 11/21/17 11/22/17 16:15 16:15 04:10 Creatine Kinase 51 Troponin I < 0.012 < 0.012 Impressions: Head CT 11/21/17 00:00 IMPRESSION: NORMAL BRAIN CT WITHOUT CONTRAST. EVIDENCE OF ACUTE STROKE: NO. Chest X-Ray 11/21/17 15:33 IMPRESSION: Left triple-lumen catheter tip superior vena cava. No pneumothorax. Bibasilar consolidation with air bronchograms atelectasis versus pneumonia. Pulmonary vascular prominence. Assessment & Plan - Diagnosis (1) DKA (diabetic ketoacidoses) Qualifiers: Diabetes mellitus type: type 1 Is this a current diagnosis for this admission?: Yes Plan: Her anion gap is closed. Blood sugar is within normal limits. Patient is able to eat and tolerates. The insulin drip is stopped and patient put on subcu Lantus and sliding scale. (2) New onset seizure Is this a current diagnosis for this admission?: Yes Plan: Do not have good explanation for the seizure. No seizure activity since admission. Patient empirically on ceftriaxone and vancomycin. LFTs pending. (3) Candidiasis of mouth Is this a current diagnosis for this admission?: Yes Plan: Patient complains of odynophagia so she is started on Diflucan. (4) Metabolic encephalopathy Is this a current diagnosis for this admission?: Yes Plan: Patient found unresponsive in her car. Most probably due to DKA. Currently patient is at her baseline. (5) Acute kidney injury Is this a current diagnosis for this admission?: Yes Plan: Resolved (6) Hypothermia Qualifiers: Encounter type: initial encounter Qualified Code(s): T68.XXXA - Hypothermia , initial encounter Is this a current diagnosis for this admission?: Yes Plan: Secondary to environmental exposure. Has resolved (7) Tobacco dependence Is this a current diagnosis for this admission?: Yes Plan: Patient advised to quit smoking.
[2017-11-23] MEDS: CEFTRIAXONE SODIUM 2,000 MG in NORMAL SALINE 100 ML IV SCH (11:29)
[2017-11-23] MEDS: NICOTINE 21 MG/24 HR PATCH.TD24 TD SCH (11:29)
[2017-11-23] MEDS ORDERED: INSULIN LISPRO 100 UNIT/ML 3 ML VIAL ONE ×3 (11:56→22:26)
[2017-11-23 12:47] LABS: BLOOD UREA NITROGEN 11 mg/dL (7-20); CALCIUM 8.8 mg/dL (8.4-10.2); CARBON DIOXIDE 20 mmol/L (22-30); CHLORIDE 115 mmol/L (98-107); GLUCOSE 279 mg/dL (75-110)
[2017-11-23 12:52] LABS: ANION GAP 3 (5-19); SODIUM 137.7 mmol/L (137-145)
[2017-11-23] MEDS ORDERED: POTASSI CL 20 MEQ/NS 1L 1,000 ML IV ONE (13:04)
[2017-11-23 18:56] LABS: BLOOD UREA NITROGEN 13 mg/dL (7-20); CALCIUM 8.8 mg/dL (8.4-10.2); CARBON DIOXIDE 21 mmol/L (22-30); CHLORIDE 113 mmol/L (98-107); GLUCOSE 316 mg/dL (75-110); POTASSIUM 4.2 mmol/L (3.6-5.0)
[2017-11-23 19:01] LABS: SODIUM 136.7 mmol/L (137-145)
[2017-11-23 19:07] LABS: ANION GAP 3 (5-19)
[2017-11-24] MEDS ORDERED: POTASSI CL 20 MEQ/NS 1L 1000 ML IV PRN (00:21)
[2017-11-24 06:36] LABS: ABSOLUTE EOSINOPHILS # (AUTO) 0.1 10^3/uL (0.0-0.6); ABSOLUTE LYMPHOCYTES (AUTO) 1.4 10^3/uL (0.5-4.7); ABSOLUTE MONOCYTES (AUTO) 0.4 10^3/uL (0.1-1.4); ABSOLUTE NEUT (AUTO) 5.4 10^3/uL (1.7-8.2); BASOPHILS % (AUTO) 0.7 % (0-2); EOSINOPHILS % (AUTO) 1.7 % (0-6); HEMATOCRIT 32.3 % (36.0-47.0); HEMOGLOBIN 11.2 g/dL (12.0-15.5); LYMPHOCYTES % (AUTO) 19.3 % (13-45); MEAN CORPUSCULAR HEMOGLOBIN 32.1 pg (27.0-33.4); MEAN CORPUSCULAR HGB CONC 34.6 g/dL (32.0-36.0); MEAN CORPUSCULAR VOLUME 93 fl (80-97); MONOCYTES % (AUTO) 4.9 % (3-13); PLATELET COUNT 138 10^3/uL (150-450); RED BLOOD COUNT 3.48 10^6/uL (3.72-5.28); RED CELL DISTRIBUTION WIDTH 13.5 % (11.5-14.0); SEGMENTED NEUTROPHILS % (AUTO) 73.4 % (42-78); TOTAL CELLS COUNTED % (AUTO) 100 %; WHITE BLOOD COUNT 7.4 10^3/uL (4.0-10.5)
[2017-11-24 07:04] LABS: ALANINE AMINOTRANSFERASE 15 U/L (9-52); ALBUMIN 2.2 g/dL (3.5-5.0); ALKALINE PHOSPHATASE 92 U/L (38-126); ANION GAP 6 (5-19); ASPARTATE AMINO TRANSFERASE 10 U/L (14-36); BILIRUBIN,DIRECT 0.5 mg/dL (0.0-0.4); BILIRUBIN,TOTAL 0.8 mg/dL (0.2-1.3); BLOOD UREA NITROGEN 16 mg/dL (7-20); CALCIUM 8.7 mg/dL (8.4-10.2); CARBON DIOXIDE 20 mmol/L (22-30); CHLORIDE 111 mmol/L (98-107); GLUCOSE 396 mg/dL (75-110); POTASSIUM 4.8 mmol/L (3.6-5.0); SODIUM 136.5 mmol/L (137-145); TOTAL PROTEIN 4.4 g/dL (6.3-8.2)
[2017-11-24] MEDS ORDERED: INSULIN LISPRO 100 UNIT/ML 3 ML VIAL ONE ×2 (07:46→11:50)
[2017-11-24] MEDS ORDERED: INSULIN GLARGINE,HUM.REC.ANLOG 1,000 UNIT/10 ML UNIT SUBCUT ONE ×3 (07:48→10:45)
[2017-11-24] MEDS: NYSTATIN 500000 UNIT/5 ML UDCUP PO SCH ×5 (09:30→22:41)
[2017-11-24] MEDS: HEPARIN SOD (PORCINE) 5,000 UNIT/ML 1 ML SYRINGE SUBCUT SCH ×3 (09:30→22:40)
[2017-11-24] MEDS: PANTOPRAZOLE SODIUM 40 MG VIAL IV SCH ×2 (09:31→11:02)
[2017-11-24] MEDS: VANCOMYCIN HCL 750 MG in DEXTROSE 5%-WATER 250 ML IV SCH ×2 (09:31→17:26)
[2017-11-24] MEDS: FLUCONAZOLE 200 MG/NS RTU 200 MG/100 ML RTUPB IV SCH (11:01)
[2017-11-24] MEDS: NICOTINE 21 MG/24 HR PATCH.TD24 TD SCH (11:02)
[2017-11-24] MEDS: CEFTRIAXONE SODIUM 2,000 MG in NORMAL SALINE 100 ML IV SCH (12:25)
[2017-11-24 13:08] LABS: PATH REVIEW PATHOLOGIST REVIEWED
--- NOTE | 2017-11-24 13:45 | PDOC PROGRESS REPORT ---
Subjective Progress Note for:: 11/24/17 Subjective:: This is 26 years old female patient known case of insulin-dependent diabetes mellitus and history of recurrent admission for DKA presents with hyperglycemia and markedly leukocytosis of 42,000. While she was in ER patient was noticed to have tonic-clonic seizure. The admitting physician suspect that injected send patient empirically started on vancomycin and ceftriaxone. Today patient is awake alert oriented and responsive and she asks for food. Her potassium has normalized. Her white cell count dropped from 14,000-7.2. Her vital signs remained stable. This patient is unlikely to have a meningitis. Lumbar puncture discontinued. Antibiotics can be stopped after 2 days. Reason For Visit: DKA,SEPSIS,HYPOTHERMIA Physical Exam Vital Signs: Temp Pulse Resp BP Pulse Ox 98.1 F 95 18 111/71 98 11/24/17 11:52 11/24/17 11:52 11/24/17 11:52 11/24/17 11:52 11/24/17 11:52 Intake & Output 11/23/17 11/24/17 11/25/17 06:59 06:59 06:59 Intake Total 665 1800 480 Output Total 1050 3000 Balance -385 -1200 480 Weight 69.1 kg 74.4 kg General appearance: PRESENT: no acute distress, well-developed, well-nourished Head exam: PRESENT: atraumatic, normocephalic Eye exam: PRESENT: conjunctiva pink, EOMI, PERRLA. ABSENT: scleral icterus Ear exam: PRESENT: normal external ear exam Mouth exam: PRESENT: moist, tongue midline Neck exam: ABSENT: carotid bruit, JVD, lymphadenopathy, thyromegaly Respiratory exam: PRESENT: clear to auscultation adriel. ABSENT: rales, rhonchi, wheezes Cardiovascular exam: PRESENT: RRR. ABSENT: diastolic murmur, rubs, systolic murmur Pulses: PRESENT: normal dorsalis pedis pul Vascular exam: PRESENT: normal capillary refill GI/Abdominal exam: PRESENT: normal bowel sounds, soft. ABSENT: distended, guarding, mass, organolmegaly, rebound, tenderness Rectal exam: PRESENT: deferred Extremities exam: PRESENT: full ROM. ABSENT: calf tenderness, clubbing, pedal edema Neurological exam: PRESENT: alert, awake, oriented to person, oriented to place , oriented to time, oriented to situation, CN II-XII grossly intact. ABSENT: motor sensory deficit Psychiatric exam: PRESENT: appropriate affect, normal mood. ABSENT: homicidal ideation, suicidal ideation Skin exam: PRESENT: dry, intact, warm. ABSENT: cyanosis, rash Results Laboratory Results: 11/24/17 06:20 11/24/17 06:20 11/23/17 11/24/17 11/24/17 18:20 06:20 06:20 WBC 7.4 RBC 3.48 L Hgb 11.2 L Hct 32.3 L MCV 93 MCH 32.1 MCHC 34.6 RDW 13.5 Plt Count 138 L Seg Neutrophils % 73.4 Lymphocytes % 19.3 Monocytes % 4.9 Eosinophils % 1.7 Basophils % 0.7 Absolute Neutrophils 5.4 Absolute Lymphocytes 1.4 Absolute Monocytes 0.4 Absolute Eosinophils 0.1 Absolute Basophils 0.0 Sodium 136.7 L 136.5 L Potassium 4.2 4.8 Chloride 113 H 111 H Carbon Dioxide 21 L 20 L Anion Gap 3 L 6 BUN 13 16 Creatinine 1.02 0.99 Est GFR ( Amer) > 60 > 60 Est GFR (Non-Af Amer) > 60 > 60 Glucose 316 H 396 H Calcium 8.8 8.7 Total Bilirubin 0.8 AST 10 L ALT 15 Alkaline Phosphatase 92 Total Protein 4.4 L Albumin 2.2 L 11/21/17 14:09 Throat Throat Culture - Final NORMAL ROHIT 11/21/17 11/21/17 11/22/17 16:15 16:15 04:10 Creatine Kinase 51 Troponin I < 0.012 < 0.012 Impressions: Head CT 11/21/17 00:00 IMPRESSION: NORMAL BRAIN CT WITHOUT CONTRAST. EVIDENCE OF ACUTE STROKE: NO. Chest X-Ray 11/21/17 15:33 IMPRESSION: Left triple-lumen catheter tip superior vena cava. No pneumothorax. Bibasilar consolidation with air bronchograms atelectasis versus pneumonia. Pulmonary vascular prominence. Assessment & Plan - Diagnosis (1) DKA (diabetic ketoacidoses) Qualifiers: Diabetes mellitus type: type 1 Is this a current diagnosis for this admission?: Yes Plan: Resolved (2) New onset seizure Is this a current diagnosis for this admission?: Yes Plan: Do not have good explanation for the seizure. No seizure activity since admission. Patient empirically on ceftriaxone and vancomycin. LFTs pending. (3) Candidiasis of mouth Is this a current diagnosis for this admission?: Yes Plan: Patient complains of odynophagia so she is started on Diflucan. (4) Metabolic encephalopathy Is this a current diagnosis for this admission?: Yes Plan: Patient found unresponsive in her car. Most probably due to DKA. Currently patient is at her baseline. (5) Acute kidney injury Is this a current diagnosis for this admission?: Yes Plan: Resolved (6) Hypothermia Qualifiers: Encounter type: initial encounter Qualified Code(s): T68.XXXA - Hypothermia , initial encounter Is this a current diagnosis for this admission?: Yes Plan: Secondary to environmental exposure. Has resolved (7) Tobacco dependence Is this a current diagnosis for this admission?: Yes Plan: Patient advised to quit smoking.
[2017-11-24] MEDS ORDERED: PROMETHAZINE HCL INJ 25 MG/1 ML VIAL IV PRN (15:00)
[2017-11-24] MEDS: INSULIN LISPRO 100 UNIT/ML 3 ML VIAL SUBCUT SCH (17:25)
[2017-11-24] MEDS: LANSOPRAZOLE 30 MG TAB.RAP.DR PO SCH (17:26)
[2017-11-25] MEDS: HEPARIN SOD (PORCINE) 5,000 UNIT/ML 1 ML SYRINGE SUBCUT SCH ×2 (06:21→13:23)
[2017-11-25] MEDS: VANCOMYCIN HCL 750 MG in DEXTROSE 5%-WATER 250 ML IV SCH (06:31)
[2017-11-25] MEDS ORDERED: INSULIN GLARGINE,HUM.REC.ANLOG 300 UNIT/3 ML INSULN.PEN SUBCUT SCH (08:00)
[2017-11-25] MEDS: INSULIN LISPRO 100 UNIT/ML 3 ML VIAL SUBCUT SCH ×2 (08:32→12:27)
[2017-11-25] MEDS: LANSOPRAZOLE 30 MG TAB.RAP.DR PO SCH (08:33)
[2017-11-25] MEDS: NYSTATIN 500000 UNIT/5 ML UDCUP PO SCH ×2 (10:08→13:24)
[2017-11-25] MEDS: FLUCONAZOLE 200 MG/NS RTU 200 MG/100 ML RTUPB IV SCH (10:08)
[2017-11-25] MEDS: NICOTINE 21 MG/24 HR PATCH.TD24 TD SCH (10:13)
[2017-11-25] MEDS: CEFTRIAXONE SODIUM 2,000 MG in NORMAL SALINE 100 ML IV SCH (12:29)
[2017-11-25 12:38] VITALS: BP 108/70
[2017-11-25] MEDS ORDERED: DEXTROSE 50%-WATER SYRINGE 12.5 GM/25 ML DOSE IV PRN (13:16)
[2017-11-25] MEDS ORDERED: DEXTROSE 50%-WATER SYRINGE 25 GM/50 ML DOSE IV PRN (13:16)
[2017-11-25] MEDS ORDERED: DEXTROSE 40% GEL 15 GM TUBE PO PRN (13:16)
[2017-11-25] MEDS ORDERED: GLUCAGON,HUMAN RECOMB 1 MG INJ IM PRN (13:16)
[2017-11-25] MEDS ORDERED: DEXTROSE 40% GEL 15 GM TUBE X 2 PO PRN (13:16)
[2017-11-25] MEDS ORDERED: INSULIN LISPRO 100 UNIT/ML 3 ML VIAL SUBCUT PRN (13:16)
== END 2017-11-25 14:26 | disposition left against medical advice (07) | DRG 637 ==
LOC: ER 11:03 → EH 13:26 → ICU 13:40 → 3W 11-24 14:22
PROVIDERS: ADMIT Internal Medicine; ATTEND Internal Medicine
PROC: 02HV33Z Insertion of Infusion Device into Superior Vena Cava, Percutaneous Approach (ICD-10-PCS; principal; 2017-11-21)
DX: E10.11 Type 1 diabetes mellitus with ketoacidosis with coma (principal); G93.41 Metabolic encephalopathy; B37.0 Candidal stomatitis; N17.9 Acute kidney failure, unspecified; Z79.4 Long term (current) use of insulin; T68.XXXA Hypothermia, initial encounter; R56.9 Unspecified convulsions; K21.9 Gastro-esophageal reflux disease without esophagitis; F17.210 Nicotine dependence, cigarettes, uncomplicated; Z88.6 Allergy status to analgesic agent; Z90.49 Acquired absence of other specified parts of digestive tract; Z98.51 Tubal ligation status; Z88.5 Allergy status to narcotic agent
CPT/HCPCS: 36415; 51702; 70450; 71045; 80048; 80053; 80202; 80307; 81001; 81025; 82550; 82803; 82962; 83605; 83690; 83735; 83930; 84484; 85025; 85610; 85730; 86701; 87040; 87070; 87086; 87880; 93005; 93010; 94640; 96361; 96365; 96375; 99291; 99292; J0690; J0696; J1450; J1642; J1644; J1815; J3370; J3475; J3480; J3490; J7060; S0164

== ENCOUNTER 2018-03-16 17:37 | Emergency (ER) | payer MEDICAID, OTHER ==
[2018-03-16] MEDS ORDERED: METOCLOPRAMIDE HCL INJ/PF 10 MG/2 ML SDV IV ONE (19:05)
[2018-03-16] MEDS ORDERED: NORMAL SALINE 1000 ML 1,000 ML IV ONE (19:05)
[2018-03-16] MEDS ORDERED: ONDANSETRON HCL INJ/PF 4 MG/2 ML SDV IV ONE (19:06)
--- NOTE | 2018-03-16 19:08 | ER Document Report ---
ED Medical Screen (RME) - General Chief Complaint: Nausea/Vomiting Stated Complaint: VOMITING, HEADACHE Time Seen by Provider: 03/16/18 19:00 Notes: RAPID MEDICAL EVALUATION DISCLOSURE I have seen this patient as part of a Rapid Medical Evaluation and, if applicable, placed any initially appropriate orders. The patient will be seen and fully evaluated, including a full history and physical exam, by a provider (in Main ED or Fast Track) when a room becomes available. 27-year-old female here with complaints of nausea vomiting diarrhea abdominal cramping headaches ongoing for the past 2 days she has not taken anything for the symptoms. The vomiting has actually improved. Her blood sugar earlier today was 232 so she took 10 units of insulin. Here it is 120s. Her kids are all sick with the same GI type symptoms. EXAM Mild epigastric TTP No peritoneal signs TRAVEL OUTSIDE OF THE [place] IN LAST 30 DAYS: No - Related Data Allergies/Adverse Reactions: aspirin Allergy (Mild, Verified 03/16/18 18:55) Hives ibuprofen Allergy (Mild, Verified 03/16/18 18:55) Hives tramadol Allergy (Mild, Verified 03/16/18 18:55) Hives ketorolac [From Toradol] Allergy (Verified 03/16/18 18:55) Past Medical History - Social History Chew tobacco use (# tins/day): No Frequency of alcohol use: None Drug Abuse: None Family history: Reviewed & Not Pertinent - Past Medical History Cardiac Medical History: Denies: Hx Congestive Heart Failure, Hx DVT, Hx Heart Attack, Hx Hypercholesterolemia, Hx Hypertension, Hx Pulmonary Embolism Pulmonary Medical History: Denies: Hx Asthma, Hx COPD Neurological Medical History: Denies: Hx Seizures Endocrine Medical History: Reports: Hx Diabetes Mellitus Type 1. Denies: Hx Hyperthyroidism, Hx Hypothyroidism Renal/ Medical History: Reports: Hx Kidney Stones, Hx Ovarian Cysts. Denies: Hx Peritoneal Dialysis GI Medical History: Reports: Hx Gastroesophageal Reflux Disease. Denies: Hx Cirrhosis, Hx Hepatitis Musculoskeltal Medical History: Denies Hx Arthritis, Reports Hx Musculoskeletal Deformity, Reports Hx Musculoskeletal Trauma Skin Medical History: Denies Hx Eczema, Denies Hx Psoriasis Psychiatric Medical History: Reports: Hx Anxiety Denies: Hx Depression Infectious Medical History: Denies: Hx Hepatitis Past Surgical History: Reports: Hx Cholecystectomy, Hx Oral Surgery - Dental surgery, Hx Tubal Ligation, Other - Incision and drainage of multiple perirectal abscesses - Immunizations Hx Diphtheria, Pertussis, Tetanus Vaccination: Yes - 2016 History of Influenza Vaccine for 12/2016 - 05/2017 Season: Refused Physical Exam - Vital signs Vitals: Temp Pulse Resp BP Pulse Ox 98.5 F 105 H 14 102/68 99 03/16/18 17:51 03/16/18 17:51 03/16/18 17:51 03/16/18 17:51 03/16/18 17:51 Course - Vital Signs Vital signs: Temp Pulse Resp BP Pulse Ox 98.5 F 105 H 14 102/68 99 03/16/18 17:51 03/16/18 17:51 03/16/18 17:51 03/16/18 17:51 03/16/18 17:51 Doctor's Discharge - Discharge Referrals: DENVER STAFFORD PA-C [Primary Care Provider] - Follow up as needed
[2018-03-16 19:41] LABS: ABSOLUTE BASOPHILS # (AUTO) 0.1 10^3/uL (0.0-0.2); ABSOLUTE EOSINOPHILS # (AUTO) 0.2 10^3/uL (0.0-0.6); ABSOLUTE LYMPHOCYTES (AUTO) 2.9 10^3/uL (0.5-4.7); ABSOLUTE MONOCYTES (AUTO) 0.4 10^3/uL (0.1-1.4); ABSOLUTE NEUT (AUTO) 5.3 10^3/uL (1.7-8.2); HEMATOCRIT 47.9 % (36.0-47.0); HEMOGLOBIN 16.3 g/dL (12.0-15.5); LYMPHOCYTES % (AUTO) 32.5 % (13-45); MEAN CORPUSCULAR HGB CONC 34.1 g/dL (32.0-36.0); MEAN CORPUSCULAR VOLUME 91 fl (80-97); MONOCYTES % (AUTO) 4.7 % (3-13); PLATELET COUNT 292 10^3/uL (150-450); RED BLOOD COUNT 5.28 10^6/uL (3.72-5.28); RED CELL DISTRIBUTION WIDTH 13.5 % (11.5-14.0); SEGMENTED NEUTROPHILS % (AUTO) 59.8 % (42-78); TOTAL CELLS COUNTED % (AUTO) 100 %; WHITE BLOOD COUNT 8.9 10^3/uL (4.0-10.5)
[2018-03-16 20:00] LABS: ALANINE AMINOTRANSFERASE 15 U/L (9-52); ALBUMIN 4.6 g/dL (3.5-5.0); ALKALINE PHOSPHATASE 129 U/L (38-126); ANION GAP 11 (5-19); ASPARTATE AMINO TRANSFERASE 17 U/L (14-36); BILIRUBIN,DIRECT 0.3 mg/dL (0.0-0.4); BILIRUBIN,TOTAL 0.5 mg/dL (0.2-1.3); BLOOD UREA NITROGEN 13 mg/dL (7-20); CALCIUM 10.7 mg/dL (8.4-10.2); CARBON DIOXIDE 20 mmol/L (22-30); CHLORIDE 105 mmol/L (98-107); GLUCOSE 117 mg/dL (75-110); LIPASE 96.9 U/L (23-300); POTASSIUM 4.2 mmol/L (3.6-5.0); SODIUM 135.8 mmol/L (137-145); TOTAL PROTEIN 7.7 g/dL (6.3-8.2)
[2018-03-16 20:12] VITALS: BP 108/66
--- NOTE | 2018-03-16 20:14 | ER Document Report ---
ED General - General Chief Complaint: Nausea/Vomiting Stated Complaint: VOMITING, HEADACHE Time Seen by Provider: 03/16/18 19:00 Notes: 27-year-old female here with complaints of nausea vomiting diarrhea abdominal cramping headaches ongoing for the past 2 days she has not taken anything for the symptoms. The vomiting has actually improved. Her blood sugar earlier today was 232 so she took 10 units of insulin. Here it is 120s. Her kids are all sick with the same GI type symptoms. TRAVEL OUTSIDE OF THE [place] IN LAST 30 DAYS: No - Related Data Allergies/Adverse Reactions: aspirin Allergy (Mild, Verified 03/16/18 18:55) Hives ibuprofen Allergy (Mild, Verified 03/16/18 18:55) Hives tramadol Allergy (Mild, Verified 03/16/18 18:55) Hives ketorolac [From Toradol] Allergy (Verified 03/16/18 18:55) Past Medical History - Social History Smoking Status: Current Every Day Smoker Chew tobacco use (# tins/day): No Frequency of alcohol use: None Drug Abuse: None Family History: Reviewed & Not Pertinent, Malignancy, Thyroid Disfunction - Thyroid cancer Patient has suicidal ideation: No Patient has homicidal ideation: No - Past Medical History Cardiac Medical History: Denies: Hx Congestive Heart Failure, Hx DVT, Hx Heart Attack, Hx Hypercholesterolemia, Hx Hypertension, Hx Pulmonary Embolism Pulmonary Medical History: Denies: Hx Asthma, Hx COPD Neurological Medical History: Denies: Hx Seizures Endocrine Medical History: Reports: Hx Diabetes Mellitus Type 1. Denies: Hx Hyperthyroidism, Hx Hypothyroidism Renal/ Medical History: Reports: Hx Kidney Stones, Hx Ovarian Cysts. Denies: Hx Peritoneal Dialysis GI Medical History: Reports: Hx Gastroesophageal Reflux Disease. Denies: Hx Cirrhosis, Hx Hepatitis Musculoskeletal Medical History: Denies Hx Arthritis, Reports Hx Musculoskeletal Deformity, Reports Hx Musculoskeletal Trauma Skin Medical History: Denies Hx Eczema, Denies Hx Psoriasis Psychiatric Medical History: Reports: Hx Anxiety Denies: Hx Depression Infectious Medical History: Denies: Hx Hepatitis Past Surgical History: Reports: Hx Cholecystectomy, Hx Oral Surgery - Dental surgery, Hx Tubal Ligation, Other - Incision and drainage of multiple perirectal abscesses - Immunizations Hx Diphtheria, Pertussis, Tetanus Vaccination: Yes - 2016 Review of Systems - Review of Systems Notes: See history of present illness for pertinent positive review of systems; otherwise all review of systems have been reviewed and are negative Physical Exam - Vital signs Vitals: Temp Pulse Resp BP Pulse Ox 98.5 F 105 H 14 102/68 99 03/16/18 17:51 03/16/18 17:51 03/16/18 17:51 03/16/18 17:51 03/16/18 17:51 - Notes Notes: PHYSICAL EXAMINATION: GENERAL: Well-appearing and in no acute distress. HEAD: Atraumatic, normocephalic. EYES: Pupils equal round and reactive to light, extraocular movements intact, sclera anicteric, conjunctiva are normal. ENT: nares patent, oropharynx clear without exudates. Moist mucous membranes. NECK: Normal range of motion, supple without lymphadenopathy LUNGS: CTAB and equal. No wheezes rales or rhonchi. HEART: Regular rate and rhythm without murmurs ABDOMEN: Soft, minimal epigastric tenderness without peritoneal signs. No facial grimacing/wincing upon palpation. No guarding, no rebound. EXTREMITIES: Normal range of motion, no pitting edema. No cyanosis. NEUROLOGICAL: Cranial nerves grossly intact. Normal sensory/motor exams. PSYCH: Normal mood, normal affect. SKIN: Warm, Dry, normal turgor, no rashes or lesions noted Course - Re-evaluation Re-evalutation: 03/16/18 20:10 MEDICAL DECISION MAKING: Concern for viral gastroenteritis gastritis pancreatitis Results reviewed and there are some findings concerning for dehydration However, patient has received a bag of IV fluids and Zofran with no further active vomiting Will discharge home with prescription for Bentyl Zofran and instructed follow-up PCP next day or few Patient understands and agrees to the plan of care - Vital Signs Vital signs: Temp Pulse Resp BP Pulse Ox 98.5 F 105 H 14 102/68 99 03/16/18 17:51 03/16/18 17:51 03/16/18 17:51 03/16/18 17:51 03/16/18 17:51 - Laboratory Result Diagrams: 03/16/18 19:25 03/16/18 19:25 Laboratory results interpreted by me: 03/16/18 03/16/18 03/16/18 19:06 19:25 19:25 Hgb 16.3 H Hct 47.9 H Sodium 135.8 L Carbon Dioxide 20 L Glucose 117 H POC Glucose 120 H Calcium 10.7 H Alkaline Phosphatase 129 H Discharge - Discharge Clinical Impression: Nausea vomiting and diarrhea Condition: Good Disposition: HOME, SELF-CARE Additional Instructions: You were seen in the emergency department at [facility]. You likely have a gastrointestinal infection, most likely viral. Use Motrin and/or Tylenol for fever control. You may use the prescribed medication as needed for nausea or pain. Stay hydrated, preferably Gatorade over water. Please followup with your primary physician in the next few days for further management/evaluation. Please return to the emergency department for worsening of symptoms or any symptom that you deem to be concerning or life-threatening. Thank you for allowing us to be part of your care. This is your school/work note for your Emergency Department evaluation today. Prescriptions: Dicyclomine HCl [Bentyl 20 mg Tablet] 20 mg PO QID #20 tablet Ondansetron [Zofran Odt 4 mg Tablet] 1 tab PO Q4H PRN #15 tab.rapdis PRN Reason: For Nausea/Vomiting Referrals: DENVER STAFFORD PA-C [Primary Care Provider] - Follow up tomorrow
== END 2018-03-16 20:13 | disposition home or self-care (01) ==
LOC: ER 17:37
DX: R11.2 Nausea with vomiting, unspecified (principal); R19.7 Diarrhea, unspecified; R10.9 Unspecified abdominal pain; R10.816 Epigastric abdominal tenderness; R51 Headache; E10.9 Type 1 diabetes mellitus without complications; Z88.6 Allergy status to analgesic agent; Z88.5 Allergy status to narcotic agent; Z88.8 Allergy status to other drugs, medicaments and biological substances; F17.200 Nicotine dependence, unspecified, uncomplicated; Z90.49 Acquired absence of other specified parts of digestive tract; Z98.51 Tubal ligation status
CPT/HCPCS: 99284; 96361; 96374; 36415; 82962; 83690; 85025; 80053; J2405; J7030

== ENCOUNTER 2018-03-19 08:57 | Inpatient (IN) | payer OTHER ==
[2018-03-19] MEDS ORDERED: ONDANSETRON HCL INJ/PF 4 MG/2 ML SDV IV ONE (09:35)
[2018-03-19] MEDS ORDERED: NORMAL SALINE 100 ML with INSULIN REGULAR, HUMAN 100 UNIT IV PRN ×2 (09:51)
[2018-03-19] MEDS: NORMAL SALINE 1000 ML 1,000 ML IV PRN ×3 (09:53→20:40)
[2018-03-19] MEDS ORDERED: MORPHINE SULFATE 10 MG/ML INJ IV ONE (09:55)
--- NOTE | 2018-03-19 09:57 | ER Document Report ---
ED General - General Chief Complaint: Nausea/Vomiting Stated Complaint: VOMITING Time Seen by Provider: 03/19/18 09:35 TRAVEL OUTSIDE OF THE [place] IN LAST 30 DAYS: No - HPI Notes: Patient is a 27-year-old female that presents to the emergency department for chief complaint of nausea and vomiting. Patient reports she has had 5 days of nausea and vomiting. She states she is now no longer to keep any fluids or food down. She is an insulin-dependent diabetic with a history of DKA. She states she feels like she is in DKA. She has not missed any doses of her insulin. She is complaining of pain along her entire back. She denies any injury or trauma. She denies any lower extremity numbness, weakness, saddle anesthesia, fevers, bowel or bladder incontinence. She states she does have a history of pain in her back and has been taking Tylenol at home. The pain is worse with movement and when she lays on her back. She denies any relieving factors. She is reporting diffuse abdominal pain as well. Past Medical History: Diabetes Past Surgical History: Tubal ligation, cholecystectomy Social History: Daily tobacco, occasional alcohol, denies drug use Family History: Reviewed and noncontributory for presenting illness Allergies: Reviewed, see documented allergy list. REVIEW OF SYSTEMS: CONSTITUTIONAL : No fever No chills No diaphoresis No recent illness EENT: No vision changes No congestion No sore throat CARDIOVASCULAR: No chest pain No palpitations RESPIRATORY: No shortness of breath No cough No difficulty breathing GASTROINTESTINAL: abdominal pain nausea vomiting No diarrhea GENITOURINARY: No dysuria No hematuria No difficulty urinating MUSCULOSKELETAL: back pain No leg pain No arm pain SKIN: No rashes No lesions LYMPHATIC: No swollen, enlarged glands. NEUROLOGICAL: No lightheadedness No headache No weakness No paresthesias PSYCHIATRIC: No anxiety No depression PHYSICAL EXAMINATION: Vital signs reviewed, nursing noted reviewed. GENERAL: Ill appearing, thin and in moderate acute distress. HEAD: Atraumatic, normocephalic. EYES: Eyes appear normal, extraocular movements intact, sclera anicteric, conjunctiva are normal. ENT: nares patent, oropharynx clear without exudates. Moist mucous membranes. NECK: Normal range of motion, supple without lymphadenopathy LUNGS: Tachypneic, breath sounds clear to auscultation bilaterally and equal. No wheezes rales or rhonchi. HEART: Tachycardic rate and regular rhythm without murmurs ABDOMEN: Actively vomiting, abdomen soft, nontender, normoactive bowel sounds. No rebound, guarding, or rigidity. No masses appreciated. Back: No external signs of injury including erythema and ecchymosis, no deformity, normal range of motion, diffuse tenderness to entire thoracic and lumbar spine as well as entire thoracic and paraspinal lumbar region EXTREMITIES: Nontender, good range of motion, no pitting or edema. NEUROLOGICAL: No focal neurological deficits. Moves all extremities spontaneously Motor and sensory grossly intact on exam. Psych: Anxious SKIN: Warm, Dry, normal turgor, no rashes or lesions noted on exposed skin - Related Data Allergies/Adverse Reactions: aspirin Allergy (Mild, Verified 03/19/18 08:59) Hives ibuprofen Allergy (Mild, Verified 03/19/18 08:59) Hives tramadol Allergy (Mild, Verified 03/19/18 08:59) Hives ketorolac [From Toradol] Allergy (Verified 03/19/18 08:59) Past Medical History - Social History Smoking Status: Current Every Day Smoker Family History: Reviewed & Not Pertinent, Malignancy, Thyroid Disfunction - Thyroid cancer - Past Medical History Cardiac Medical History: Denies: Hx Congestive Heart Failure, Hx DVT, Hx Heart Attack, Hx Hypercholesterolemia, Hx Hypertension, Hx Pulmonary Embolism Pulmonary Medical History: Denies: Hx Asthma, Hx COPD Neurological Medical History: Denies: Hx Seizures Endocrine Medical History: Reports: Hx Diabetes Mellitus Type 1. Denies: Hx Hyperthyroidism, Hx Hypothyroidism Renal/ Medical History: Reports: Hx Kidney Stones, Hx Ovarian Cysts. Denies: Hx Peritoneal Dialysis GI Medical History: Reports: Hx Gastroesophageal Reflux Disease. Denies: Hx Cirrhosis, Hx Hepatitis Musculoskeletal Medical History: Denies Hx Arthritis, Reports Hx Musculoskeletal Deformity, Reports Hx Musculoskeletal Trauma Skin Medical History: Denies Hx Eczema, Denies Hx Psoriasis Psychiatric Medical History: Reports: Hx Anxiety Denies: Hx Depression Infectious Medical History: Denies: Hx Hepatitis Past Surgical History: Reports: Hx Cholecystectomy, Hx Oral Surgery - Dental surgery, Hx Tubal Ligation, Other - Incision and drainage of multiple perirectal abscesses - Immunizations Hx Diphtheria, Pertussis, Tetanus Vaccination: Yes - 2016 Physical Exam - Vital signs Vitals: Temp Pulse Resp BP Pulse Ox 97.6 F 126 H 24 H 150/87 H 100 03/19/18 09:03 03/19/18 09:03 03/19/18 09:03 03/19/18 09:03 03/19/18 09:03 Course - Re-evaluation Re-evalutation: 03/19/18 09:54 Vitals reviewed. Nursing notes reviewed. Patient is tachypneic, tachycardic, and actively vomiting. She has a [id number] glucose of 566 consistent with likely DKA. Patient was started on IV hydration, antiemetics, pain medication, and insulin. Patient is tenderness to every inch of her back in the thoracic and lumbar region. She has no history of trauma and no neurologic deficits pat ient also has no fevers. I do not clinically suspect injury, cauda equina, epidural abscess, or discitis, imaging of her back not currently indicated. 03/19/18 11:16 Patient has metabolic acidosis with a pH of 7.02 on VBG. HR and nausea are improving. her potassium is ok at 4.8. Patient will be admitted to the ICU for further care. Case discussed with Dr. Maxwell who accepts admission. She is improving at time of admission Laboratory 03/19/18 03/19/18 03/19/18 09:44 09:44 10:30 WBC 9.4 RBC 5.47 H Hgb 16.9 H Hct 52.7 H MCV 96 D MCH 31.0 MCHC 32.1 RDW 14.0 Plt Count 331 Seg Neutrophils % 78.6 H Lymphocytes % 16.2 Monocytes % 4.3 Eosinophils % 0.2 Basophils % 0.7 Absolute Neutrophils 7.4 Absolute Lymphocytes 1.5 Absolute Monocytes 0.4 Absolute Eosinophils 0.0 Absolute Basophils 0.1 VBG pH 7.02 L* VBG pCO2 25.8 L VBG HCO3 6.4 L VBG Base Excess -23.4 Sodium 138.6 Potassium 4.8 Chloride 101 Carbon Dioxide 6 L* Anion Gap 32 H BUN 11 Creatinine 0.83 Est GFR ( Amer) > 60 Est GFR (Non-Af Amer) > 60 Glucose 621 H* Calcium 9.8 Total Bilirubin 0.4 Direct Bilirubin 0.3 Neonat Total Bilirubin Not Reportable Neonat Direct Bilirubin Not Reportable Neonat Indirect Bili Not Reportable AST 24 ALT 22 Alkaline Phosphatase 177 H Total Protein 8.5 H Albumin 5.4 H Lipase 62.5 Urine Color Urine Appearance Urine pH Ur Specific [place] Urine Protein Urine Glucose (UA) Urine Ketones Urine Blood Urine Nitrite Urine Bilirubin Urine Urobilinogen Ur Leukocyte Esterase Urine WBC (Auto) Urine RBC (Auto) Squamous Epi Cells Auto Urine Mucus (Auto) Urine Ascorbic Acid Urine HCG, Qual 03/19/18 10:30 WBC RBC Hgb Hct MCV MCH MCHC RDW Plt Count Seg Neutrophils % Lymphocytes % Monocytes % Eosinophils % Basophils % Absolute Neutrophils Absolute Lymphocytes Absolute Monocytes Absolute Eosinophils Absolute Basophils VBG pH VBG pCO2 VBG HCO3 VBG Base Excess Sodium Potassium Chloride Carbon Dioxide Anion Gap BUN Creatinine Est GFR ( Amer) Est GFR (Non-Af Amer) Glucose Calcium Total Bilirubin Direct Bilirubin Neonat Total Bilirubin Neonat Direct Bilirubin Neonat Indirect Bili AST ALT Alkaline Phosphatase Total Protein Albumin Lipase Urine Color STRAW Urine Appearance CLEAR Urine pH 5.0 Ur Specific [place] 1.016 Urine Protein NEGATIVE Urine Glucose (UA) >=500 H Urine Ketones 80 H Urine Blood NEGATIVE Urine Nitrite NEGATIVE Urine Bilirubin NEGATIVE Urine Urobilinogen NEGATIVE Ur Leukocyte Esterase NEGATIVE Urine WBC (Auto) 1 Urine RBC (Auto) 0 Squamous Epi Cells Auto 2 Urine Mucus (Auto) RARE Urine Ascorbic Acid NEGATIVE Urine HCG, Qual NEGATIVE - Vital Signs Vital signs: Temp Pulse Resp BP Pulse Ox 97.6 F 126 H 30 H 150/87 H 100 03/19/18 09:03 03/19/18 09:03 03/19/18 09:46 03/19/18 09:03 03/19/18 09:03 - Laboratory Result Diagrams: 03/19/18 09:44 03/19/18 09:44 Laboratory results interpreted by me: 03/19/18 03/19/18 03/19/18 09:44 09:44 10:30 RBC 5.47 H Hgb 16.9 H Hct 52.7 H Seg Neutrophils % 78.6 H VBG pH 7.02 L* VBG pCO2 25.8 L VBG HCO3 6.4 L Carbon Dioxide 6 L* Anion Gap 32 H Glucose 621 H* Alkaline Phosphatase 177 H Total Protein 8.5 H Albumin 5.4 H Urine Glucose (UA) Urine Ketones 03/19/18 10:30 RBC Hgb Hct Seg Neutrophils % VBG pH VBG pCO2 VBG HCO3 Carbon Dioxide Anion Gap Glucose Alkaline Phosphatase Total Protein Albumin Urine Glucose (UA) >=500 H Urine Ketones 80 H - EKG Interpretation by Ca Additional EKG results interpreted by me: 03/19/18 10:18 Interpreted by myself 1005: Sinus tachycardia, rate 127, normal axis, no ectopy, no STEMI Critical Care Note - Critical Care Note Total time excluding time spent on procedures (mins): 35 Comments: Critical care time 35 exclusive from separate billable procedures for a patient requiring complex medical decision making, and high potential for clinical deterioration. Time spent obtaining history from patient or surrogate, discussions with consultants, development of treatment plan with patient or surrogate, evaluation of patient's response to treatment, examination of patient, ordering and performing treatments and interventions, ordering and rev iew of laboratory studies, re-evaluation of patient's condition, ordering and review of radiographic studies and review of old charts Discharge - Discharge Clinical Impression: Metabolic acidosis DKA (diabetic ketoacidoses) Qualifiers: Diabetes mellitus type: type 1 Diabetes mellitus complication detail: without coma Qualified Code(s): E10.10 - Type 1 diabetes mellitus with ketoacidosis without coma Condition: Stable Disposition: ADMITTED INPATIENT Admitting Provider: Hospitalist Unit Admitted: ICU
[2018-03-19 10:06] LABS: ABSOLUTE BASOPHILS # (AUTO) 0.1 10^3/uL (0.0-0.2); ABSOLUTE LYMPHOCYTES (AUTO) 1.5 10^3/uL (0.5-4.7); ABSOLUTE MONOCYTES (AUTO) 0.4 10^3/uL (0.1-1.4); ABSOLUTE NEUT (AUTO) 7.4 10^3/uL (1.7-8.2); BASOPHILS % (AUTO) 0.7 % (0-2); EOSINOPHILS % (AUTO) 0.2 % (0-6); HEMATOCRIT 52.7 % (36.0-47.0); HEMOGLOBIN 16.9 g/dL (12.0-15.5); LYMPHOCYTES % (AUTO) 16.2 % (13-45); MEAN CORPUSCULAR HGB CONC 32.1 g/dL (32.0-36.0); MONOCYTES % (AUTO) 4.3 % (3-13); PLATELET COUNT 331 10^3/uL (150-450); RED BLOOD COUNT 5.47 10^6/uL (3.72-5.28); SEGMENTED NEUTROPHILS % (AUTO) 78.6 % (42-78); TOTAL CELLS COUNTED % (AUTO) 100 %; WHITE BLOOD COUNT 9.4 10^3/uL (4.0-10.5)
[2018-03-19 10:21] LABS: ALBUMIN 5.4 g/dL (3.5-5.0); BLOOD UREA NITROGEN 11 mg/dL (7-20); CALCIUM 9.8 mg/dL (8.4-10.2); CHLORIDE 101 mmol/L (98-107); POTASSIUM 4.8 mmol/L (3.6-5.0); TOTAL PROTEIN 8.5 g/dL (6.3-8.2)
[2018-03-19 10:24] LABS: ALANINE AMINOTRANSFERASE 22 U/L (9-52); ALKALINE PHOSPHATASE 177 U/L (38-126); ASPARTATE AMINO TRANSFERASE 24 U/L (14-36); BILIRUBIN,DIRECT 0.3 mg/dL (0.0-0.4); BILIRUBIN,TOTAL 0.4 mg/dL (0.2-1.3); LIPASE 62.5 U/L (23-300)
[2018-03-19 10:26] LABS: MEAN CORPUSCULAR VOLUME 96 fl (80-97)
[2018-03-19 10:27] LABS: SODIUM 138.6 mmol/L (137-145)
[2018-03-19 10:28] LABS: ANION GAP 32 (5-19)
[2018-03-19 10:31] LABS: CARBON DIOXIDE 6 mmol/L (22-30); GLUCOSE 621 mg/dL (75-110)
[2018-03-19 10:49] LABS: VENOUS BLOOD BASE EXCESS -23.4 mmol/L; VENOUS BLOOD HCO3 6.4 mmol/L (20-32); VENOUS BLOOD PCO2 25.8 mmHg (35-63)
[2018-03-19 10:50] LABS: APPEARANCE,URINE CLEAR; BILIRUBIN,URINE NEGATIVE (NEGATIVE); COLOR,URINE STRAW; GLUCOSE, URINE >=500 mg/dL (NEGATIVE); KETONES,URINE 80 mg/dL (NEGATIVE); LEUKOCYTE ESTERASE,URINE NEGATIVE (NEGATIVE); NITRITE,URINE NEGATIVE (NEGATIVE); PROTEIN,URINE NEGATIVE (NEGATIVE); URINE SPECIFIC GRAVITY 1.016; UROBILINOGEN,URINE NEGATIVE mg/dL (<2.0)
[2018-03-19] MEDS: INSULIN REG, HUMAN 100 UNIT/ML 3 ML VIAL (PYX) ONE ×2 (10:52→11:05)
[2018-03-19 10:56] LABS: VENOUS BLOOD PH 7.02 (7.30-7.42)
[2018-03-19] MEDS ORDERED: DEXTROSE 50%-WATER 25 GM/50 ML DISP.SYRIN IV PRN ×2 (11:49)
[2018-03-19] MEDS ORDERED: DEXTROSE 40% GEL 15 GM TUBE PO PRN ×2 (11:49)
[2018-03-19] MEDS ORDERED: GLUCAGON,HUMAN RECOMB 1 MG INJ IM PRN (11:49)
[2018-03-19] MEDS ORDERED: NORMAL SALINE 1000 ML 1,000 ML IV PRN (11:49)
[2018-03-19] MEDS ORDERED: NORMAL SALINE 1000 ML 1,000 ML with POTASSIUM CHLORIDE 20 MEQ IV PRN ×2 (11:52)
[2018-03-19] MEDS ORDERED: ACETAMINOPHEN 325 MG TABLET PO PRN (11:53)
--- NOTE | 2018-03-19 12:51 | EKG REPORT ---
SEVERITY:- OTHERWISE NORMAL ECG - SINUS TACHYCARDIA : Confirmed by: Gurdeep Christensen MD 19-Mar-2018 12:51:04
[2018-03-19 13:13] LABS: BLOOD UREA NITROGEN 10 mg/dL (7-20); CALCIUM 8.4 mg/dL (8.4-10.2); CHLORIDE 112 mmol/L (98-107); POTASSIUM 5.1 mmol/L (3.6-5.0)
[2018-03-19 13:38] LABS: CARBON DIOXIDE < 5 mmol/L (22-30); GLUCOSE 518 mg/dL (75-110)
[2018-03-19] MEDS: ONDANSETRON HCL INJ/PF 4 MG/2 ML SDV IV PRN ×2 (13:51→21:43)
[2018-03-19] MEDS: HEPARIN SOD (PORCINE) 5,000 UNIT/ML 1 ML SYRINGE SUBCUT SCH ×2 (13:51→21:32)
[2018-03-19] MEDS ORDERED: POTASSI CL 20 MEQ/NS 1L 1000 ML IV PRN (14:15)
[2018-03-19] MEDS ORDERED: POTASSI CL 20 MEQ/D5-1/2NS 1L 1000 ML IV PRN (15:33)
[2018-03-19 16:35] LABS: BLOOD UREA NITROGEN 10 mg/dL (7-20); CALCIUM 8.7 mg/dL (8.4-10.2); GLUCOSE 249 mg/dL (75-110); POTASSIUM 4.5 mmol/L (3.6-5.0)
[2018-03-19 16:41] LABS: CHLORIDE 115 mmol/L (98-107); SODIUM 145.3 mmol/L (137-145)
[2018-03-19 16:57] LABS: CARBON DIOXIDE 5 mmol/L (22-30)
[2018-03-19 17:02] LABS: ANION GAP 25 (5-19)
--- NOTE | 2018-03-19 18:45 | PDOC H&P ---
History of Present Illness Admission Date/PCP: 03/19/18 11:30 DENVER STAFFORD PA-C History of Present Illness: FRIDA ALMANZA is a 27 year old female with history of several admissions for DKA who presents again in DKA. She said that she has been compliant with her diet and has been taking her insulin and she began to feel ill a few days ago. She said that she was checking her blood sugar and noted that it was going up but never called her doctor. She said at one point she tried to get an appointment but could not get in. She said that she did not tell them that her blood sugar was going up and that she needed guidance. She been feeling poorly but not had any nausea or vomiting. She said her p.o. intake has not been good the last few days. She has been very thirsty and has been urinating a lot. Her constellation of lab findings confirmed a diagnosis of DKA. Past Medical History Cardiac Medical History: Denies: Congestive Heart Failure, DVT, Myocardial Infarction, Hyperlipidema, Hypertension, Pulmonary Embolism Pulmonary Medical History: Denies: Asthma, Chronic Obstructive Pulmonary Disease (COPD) Neurological Medical History: Denies: Seizures Endocrine Medical History: Reports: Diabetes Mellitus Type 1 Denies: Hyperthyroidism, Hypothyroidism GI Medical History: Reports: Gastroesophageal Reflux Disease Denies: Cirrhosis, Hepatitis Musculoskeltal Medical History: Denies: Arthritis Skin Medical History: Denies: Eczema, Psoriasis Psychiatric Medical History: Denies: Depression Past Surgical History Past Surgical History: Reports: Cholecystectomy, Tubal Ligation, Other - Incision and drainage of multiple perirectal abscesses Social History Smoking Status: Current Every Day Smoker Frequency of Alcohol Use: Social Hx Recreational Drug Use: No Drugs: None Hx Prescription Drug Abuse: No - Advance Directive Resuscitation Status: Full Code Family History Family History: Reviewed & Not Pertinent, Malignancy, Thyroid Disfunction - Thyroid cancer Parental Family History Reviewed: Yes - Noncontributory Children Family History Reviewed: No - Noncontributory Sibling(s) Family History Reviewed.: No - Noncontributory Medication/Allergy Home Medications: Insulin Aspart [Novolog Insulin (Aspart) 100 unit/mL] 10 units SQ MEALS 03/19/18 Insulin Degludec [Tresiba Flextouch U-100] 30 units SQ QHS 03/19/18 Allergies/Adverse Reactions: aspirin Allergy (Mild, Verified 03/19/18 08:59) Hives ibuprofen Allergy (Mild, Verified 03/19/18 08:59) Hives tramadol Allergy (Mild, Verified 03/19/18 08:59) Hives ketorolac [From Toradol] Allergy (Verified 03/19/18 08:59) Review of Systems All systems: reviewed and no additional remarkable complaints except as stated - 10 point review of systems was conducted with the patient and was negative except as noted above Physical Exam Vital Signs: Temp Pulse Resp BP Pulse Ox 97.6 F 112 H 24 H 129/83 H 100 03/19/18 09:03 03/19/18 16:42 03/19/18 15:01 03/19/18 15:00 03/19/18 15:01 Intake & Output 03/18/18 03/19/18 03/20/18 06:59 06:59 06:59 Intake Total 1923 Output Total 1999 Balance -77 Weight 65.4 kg General appearance: PRESENT: cooperative, disheveled, mild distress Head exam: PRESENT: atraumatic, normocephalic Eye exam: PRESENT: EOMI, PERRLA. ABSENT: conjunctival injection, nystagmus, scleral icterus Ear exam: PRESENT: normal external ear exam Mouth exam: PRESENT: dry mucosa, neck supple Teeth exam: PRESENT: poor dentation Throat exam: ABSENT: post pharyngeal erythema Neck exam: PRESENT: full ROM. ABSENT: carotid bruit, JVD, lymphadenopathy, meningismus, tenderness, thyromegaly Respiratory exam: PRESENT: clear to auscultation adriel, symmetrical, unlabored. ABSENT: accessory muscle use, rales, rhonchi, tachypnea, wheezes Cardiovascular exam: PRESENT: tachycardia Vascular exam: PRESENT: normal capillary refill GI/Abdominal exam: PRESENT: normal bowel sounds, soft. ABSENT: distended, guarding, rebound, tenderness Extremities exam: ABSENT: clubbing, pedal edema Musculoskeletal exam: PRESENT: normal inspection. ABSENT: deformity Neurological exam: PRESENT: alert, awake, oriented to person, oriented to place, oriented to time, oriented to situation, CN II-XII grossly intact. ABSENT: motor sensory deficit Psychiatric exam: PRESENT: flat affect Skin exam: PRESENT: dry, warm, other - She had tenting of the skin Results Laboratory Results: 03/19/18 09:44 03/19/18 15:55 03/19/18 03/19/18 03/19/18 09:44 09:44 10:30 WBC 9.4 RBC 5.47 H Hgb 16.9 H Hct 52.7 H MCV 96 D MCH 31.0 MCHC 32.1 RDW 14.0 Plt Count 331 Seg Neutrophils % 78.6 H Lymphocytes % 16.2 Monocytes % 4.3 Eosinophils % 0.2 Basophils % 0.7 Absolute Neutrophils 7.4 Absolute Lymphocytes 1.5 Absolute Monocytes 0.4 Absolute Eosinophils 0.0 Absolute Basophils 0.1 VBG pH 7.02 L* VBG pCO2 25.8 L VBG HCO3 6.4 L VBG Base Excess -23.4 Sodium 138.6 Potassium 4.8 Chloride 101 Carbon Dioxide 6 L* Anion Gap 32 H BUN 11 Creatinine 0.83 Est GFR ( Amer) > 60 Est GFR (Non-Af Amer) > 60 Glucose 621 H* Calcium 9.8 Total Bilirubin 0.4 AST 24 ALT 22 Alkaline Phosphatase 177 H Total Protein 8.5 H Albumin 5.4 H Lipase 62.5 Urine Color Urine Appearance Urine pH Ur Specific Garrett Urine Protein Urine Glucose (UA) Urine Ketones Urine Blood Urine Nitrite Ur Leukocyte Esterase Urine WBC (Auto) Urine RBC (Auto) 03/19/18 03/19/18 03/19/18 10:30 12:38 15:55 WBC RBC Hgb Hct MCV MCH MCHC RDW Plt Count Seg Neutrophils % Lymphocytes % Monocytes % Eosinophils % Basophils % Absolute Neutrophils Absolute Lymphocytes Absolute Monocytes Absolute Eosinophils Absolute Basophils VBG pH VBG pCO2 VBG HCO3 VBG Base Excess Sodium 143.0 145.3 H Potassium 5.1 H 4.5 Chloride 112 H 115 H Carbon Dioxide < 5 L* 5 L* Anion Gap Not Reportable 25 H BUN 10 10 Creatinine 0.70 0.70 Est GFR ( Amer) > 60 > 60 Est GFR (Non-Af Amer) > 60 > 60 Glucose 518 H* 249 H Calcium 8.4 8.7 Total Bilirubin AST ALT Alkaline Phosphatase Total Protein Albumin Lipase Urine Color STRAW Urine Appearance CLEAR Urine pH 5.0 Ur Specific Garrett 1.016 Urine Protein NEGATIVE Urine Glucose (UA) >=500 H Urine Ketones 80 H Urine Blood NEGATIVE Urine Nitrite NEGATIVE Ur Leukocyte Esterase NEGATIVE Urine WBC (Auto) 1 Urine RBC (Auto) 0 Assessment & Plan - Diagnosis (1) DKA (diabetic ketoacidoses) Qualifiers: Diabetes mellitus type: type 1 Diabetes mellitus complication detail: without coma Qualified Code(s): E10.10 - Type 1 diabetes mellitus with ketoacidosis without coma Is this a current diagnosis for this admission?: Yes Plan: We will put her on an insulin drip, give her IV fluids, monitor her electrolytes and replace as needed. Serial metabolic panels to determine need for electrolyte replacement as well as to help us determine when she is out of DKA. We will monitor her closely. - Time Time Spent: 50 to 70 Minutes - Inpatient Certification Medical Necessity: Need Close Monitoring Due to Risk of Patient Decompensation, Need For IV Fluids, Risk of Complication if Not Cared For in Hospital
[2018-03-19 20:24] LABS: HEMATOCRIT 41.4 % (36.0-47.0); MEAN CORPUSCULAR HEMOGLOBIN 30.7 pg (27.0-33.4); MEAN CORPUSCULAR HGB CONC 33.7 g/dL (32.0-36.0); PLATELET COUNT 253 10^3/uL (150-450); RED BLOOD COUNT 4.56 10^6/uL (3.72-5.28); RED CELL DISTRIBUTION WIDTH 13.6 % (11.5-14.0); WHITE BLOOD COUNT 13.8 10^3/uL (4.0-10.5)
[2018-03-19 20:37] LABS: MEAN CORPUSCULAR VOLUME 91 fl (80-97)
[2018-03-19 20:38] LABS: ALANINE AMINOTRANSFERASE 18 U/L (9-52); ALBUMIN 3.9 g/dL (3.5-5.0); ALKALINE PHOSPHATASE 103 U/L (38-126); ANION GAP 12 (5-19); ASPARTATE AMINO TRANSFERASE 17 U/L (14-36); BILIRUBIN,DIRECT 0.3 mg/dL (0.0-0.4); BILIRUBIN,TOTAL 0.4 mg/dL (0.2-1.3); BLOOD UREA NITROGEN 9 mg/dL (7-20); CALCIUM 8.1 mg/dL (8.4-10.2); CARBON DIOXIDE 12 mmol/L (22-30); CHLORIDE 114 mmol/L (98-107); GLUCOSE 115 mg/dL (75-110); POTASSIUM 4.4 mmol/L (3.6-5.0); TOTAL PROTEIN 6.3 g/dL (6.3-8.2)
[2018-03-19] MEDS: SODIUM BICARBONATE 650 MG TABLET PO SCH (21:38)
[2018-03-19] MEDS: INSULIN GLARGINE,HUM.REC.ANLOG 300 UNIT/3 ML INSULN.PEN SUBCUT SCH (21:39)
[2018-03-19] MEDS ORDERED: INSULIN DEGLUDEC 30 UNIT SQ SCH (22:00)
[2018-03-19] MEDS ORDERED: SODIUM BICARBONATE 8.4% INJ 50 MEQ/50 ML DISP.SYRIN ONE ×2 (22:43→22:49)
[2018-03-19] MEDS ORDERED: METOCLOPRAMIDE HCL INJ/PF 10 MG/2 ML SDV IV PRN (23:02)
[2018-03-19] MEDS ORDERED: METOCLOPRAMIDE HCL INJ/PF 10 MG/2 ML SDV IV ONE (23:15)
[2018-03-19] MEDS: DEXTROSE 5%-WATER 1000 ML 1,000 ML with SODIUM BICARBONATE 150 MEQ IV PRN ×2 (23:21)
[2018-03-20 00:44] LABS: ANION GAP 13 (5-19); BLOOD UREA NITROGEN 8 mg/dL (7-20); CALCIUM 7.8 mg/dL (8.4-10.2); CARBON DIOXIDE 12 mmol/L (22-30); CHLORIDE 110 mmol/L (98-107); GLUCOSE 287 mg/dL (75-110); POTASSIUM 4.1 mmol/L (3.6-5.0); SODIUM 135.4 mmol/L (137-145)
[2018-03-20] MEDS: SODIUM BICARBONATE 650 MG TABLET PO SCH (01:16)
[2018-03-20] MEDS: INSULIN REG, HUMAN 100 UNIT/ML 3 ML VIAL (PYX) SUBCUT PRN ×5 (01:39→22:30)
[2018-03-20] MEDS ORDERED: SODIUM BICARBONATE 8.4% INJ 50 MEQ/50 ML DISP.SYRIN ONE (03:29)
[2018-03-20] MEDS: DEXTROSE 5%-WATER 1000 ML 1,000 ML with SODIUM BICARBONATE 150 MEQ IV PRN ×2 (03:57)
[2018-03-20] MEDS: HEPARIN SOD (PORCINE) 5,000 UNIT/ML 1 ML SYRINGE SUBCUT SCH ×3 (05:24→22:26)
[2018-03-20 05:59] LABS: ANION GAP 10 (5-19); BLOOD UREA NITROGEN 7 mg/dL (7-20); CALCIUM 7.6 mg/dL (8.4-10.2); CARBON DIOXIDE 17 mmol/L (22-30); CHLORIDE 110 mmol/L (98-107); GLUCOSE 224 mg/dL (75-110); POTASSIUM 3.2 mmol/L (3.6-5.0); SODIUM 137.4 mmol/L (137-145)
[2018-03-20] MEDS: INSULIN LISPRO 100 UNIT/ML 3 ML VIAL SUBCUT SCH ×3 (07:57→18:02)
[2018-03-20] MEDS ORDERED: (PENDING PHARMACY ID) (Insulin Aspart [Novolog Insulin (Aspart) 100 Unit/Ml] 10 UNITS) SQ SCH (08:00)
[2018-03-20 08:11] LABS: ANION GAP 10 (5-19); BLOOD UREA NITROGEN 6 mg/dL (7-20); CALCIUM 7.3 mg/dL (8.4-10.2); CARBON DIOXIDE 22 mmol/L (22-30); CHLORIDE 105 mmol/L (98-107); GLUCOSE 337 mg/dL (75-110); SODIUM 136.7 mmol/L (137-145)
[2018-03-20 08:20] LABS: POTASSIUM 2.8 mmol/L (3.6-5.0)
[2018-03-20] MEDS ORDERED: CALCIUM GLUCONATE 1000 MG/10 ML INJ IV ONE (08:45)
[2018-03-20] MEDS: POTASSIUM CHLORIDE 10 MEQ CAPSULE.ER PO SCH ×2 (09:57→14:50)
[2018-03-20] MEDS ORDERED: CALCIUM GLUCONATE 2,000 MG in DEXTROSE 5%-WATER 100 ML IV ONE (10:00)
[2018-03-20] MEDS: NORMAL SALINE 1000 ML 1,000 ML IV PRN (12:12)
[2018-03-20 12:48] LABS: BLOOD UREA NITROGEN 8 mg/dL (7-20); CALCIUM 8.7 mg/dL (8.4-10.2); GLUCOSE 242 mg/dL (75-110); POTASSIUM 3.5 mmol/L (3.6-5.0)
[2018-03-20 13:01] LABS: ANION GAP 7 (5-19); CARBON DIOXIDE 24 mmol/L (22-30); CHLORIDE 104 mmol/L (98-107); SODIUM 134.7 mmol/L (137-145)
[2018-03-20 16:26] LABS: ANION GAP 5 (5-19); BLOOD UREA NITROGEN 8 mg/dL (7-20); CALCIUM 8.8 mg/dL (8.4-10.2); CARBON DIOXIDE 25 mmol/L (22-30); CHLORIDE 105 mmol/L (98-107); GLUCOSE 217 mg/dL (75-110); SODIUM 135.1 mmol/L (137-145)
[2018-03-20 16:29] LABS: POTASSIUM 3.8 mmol/L (3.6-5.0)
--- NOTE | 2018-03-20 19:14 | PDOC PROGRESS REPORT ---
Subjective Progress Note for:: 03/20/18 Subjective:: No adverse events overnight. No new complaints. We have got her off of the insulin drip and her blood sugars have been undulating. She is eating and drinking without difficulty. Urine output is good. Reason For Visit: DKA(DIABETIC KETOACIDOSES) Physical Exam Vital Signs: Temp Pulse Resp BP Pulse Ox 98.8 F 76 16 110/60 100 03/20/18 15:22 03/20/18 15:22 03/20/18 15:22 03/20/18 15:22 03/20/18 15:22 Intake & Output 03/19/18 03/20/18 03/21/18 06:59 06:59 06:59 Intake Total 4654 2090 Output Total 1999 Balance 2654 2090 Weight 65.9 kg General appearance: PRESENT: no acute distress, cooperative, disheveled Respiratory exam: PRESENT: clear to auscultation adriel, symmetrical, wheezes. ABSENT: accessory muscle use, crackles, rhonchi, tachypnea, unlabored Cardiovascular exam: PRESENT: RRR, +S1, +S2 Vascular exam: PRESENT: normal capillary refill GI/Abdominal exam: PRESENT: normal bowel sounds, soft. ABSENT: distended, guarding, rebound, tenderness Extremities exam: ABSENT: clubbing, pedal edema Musculoskeletal exam: PRESENT: normal inspection. ABSENT: deformity Neurological exam: PRESENT: alert, awake, oriented to person, oriented to place, oriented to time, oriented to situation Psychiatric exam: PRESENT: appropriate affect, normal mood Skin exam: PRESENT: dry, warm Results Laboratory Results: 03/19/18 19:41 03/20/18 15:54 03/19/18 03/19/18 03/20/18 19:41 19:41 00:18 WBC 13.8 H RBC 4.56 Hgb 14.0 D Hct 41.4 MCV 91 D MCH 30.7 MCHC 33.7 RDW 13.6 Plt Count 253 Sodium 138.0 135.4 L Potassium 4.4 4.1 Chloride 114 H 110 H Carbon Dioxide 12 L 12 L Anion Gap 12 13 BUN 9 8 Creatinine 0.49 L 0.49 L Est GFR ( Amer) > 60 > 60 Est GFR (Non-Af Amer) > 60 > 60 Glucose 115 H 287 H Calcium 8.1 L 7.8 L Total Bilirubin 0.4 AST 17 ALT 18 Alkaline Phosphatase 103 Total Protein 6.3 Albumin 3.9 03/20/18 03/20/18 03/20/18 04:24 07:38 11:50 WBC RBC Hgb Hct MCV MCH MCHC RDW Plt Count Sodium 137.4 136.7 L 134.7 L Potassium 3.2 L 2.8 L* 3.5 L Chloride 110 H 105 104 Carbon Dioxide 17 L 22 24 Anion Gap 10 10 7 BUN 7 6 L 8 Creatinine 0.45 L 0.38 L 0.37 L Est GFR ( Amer) > 60 > 60 > 60 Est GFR (Non-Af Amer) > 60 > 60 > 60 Glucose 224 H 337 H 242 H Calcium 7.6 L 7.3 L 8.7 Total Bilirubin AST ALT Alkaline Phosphatase Total Protein Albumin 03/20/18 15:54 WBC RBC Hgb Hct MCV MCH MCHC RDW Plt Count Sodium 135.1 L Potassium 3.8 Chloride 105 Carbon Dioxide 25 Anion Gap 5 BUN 8 Creatinine 0.44 L Est GFR ( Amer) > 60 Est GFR (Non-Af Amer) > 60 Glucose 217 H Calcium 8.8 Total Bilirubin AST ALT Alkaline Phosphatase Total Protein Albumin Assessment & Plan - Diagnosis (1) DKA (diabetic ketoacidoses) Qualifiers: Diabetes mellitus type: type 1 Diabetes mellitus complication detail: without coma Qualified Code(s): E10.10 - Type 1 diabetes mellitus with ketoacidosis without coma Is this a current diagnosis for this admission?: Yes Plan: She was hypokalemic and hypocalcemic last night from the bicarbonate she received. We stopped that. Replace her electrolytes today. She is on a basal bolus insulin regimen now. We are going to monitor the trend in her blood sugars to see if her home insulin regimen needs further adjustment. - Time Time Spent with patient: 15-24 minutes
[2018-03-20] MEDS: INSULIN GLARGINE,HUM.REC.ANLOG 300 UNIT/3 ML INSULN.PEN SUBCUT SCH (22:31)
[2018-03-21] MEDS: NORMAL SALINE 1000 ML 1,000 ML IV PRN (04:21)
[2018-03-21] MEDS: HEPARIN SOD (PORCINE) 5,000 UNIT/ML 1 ML SYRINGE SUBCUT SCH (05:56)
[2018-03-21] MEDS: INSULIN LISPRO 100 UNIT/ML 3 ML VIAL SUBCUT SCH (07:54)
[2018-03-21 11:00] VITALS: BP 103/59
--- NOTE | 2018-03-21 16:28 | PDOC DISCHARGE SUMMARY ---
General - Admit/Disc Date/PCP Admission Date/Primary Care Provider: 03/19/18 11:30 DENVER STAFFORD PA-C Discharge Date: 03/21/18 - Discharge Diagnosis (1) DKA (diabetic ketoacidoses) Is this a current diagnosis for this admission?: Yes Summary: She responded very well to IV insulin and IV fluids. After about 24 hours we were able to take her off the insulin drip. We had to replace some electrolytes. Once we put her back on her home regimen and we controlled her diet, her blood sugars were very easy to control. - Additional Information Resuscitation Status: Full Code Discharge Diet: Diabetic Discharge Activity: Activity As Tolerated Home Medications: Insulin Aspart [Novolog Insulin (Aspart) 100 unit/mL] 10 units SQ MEALS 03/19/18 Insulin Degludec [Tresiba Flextouch U-100] 30 units SQ QHS 03/19/18 History of Present Illness History of Present Illness: FRIDA ALMANZA is a 27 year old female with history of several admissions for DKA who presents again in DKA. She said that she has been compliant with her diet and has been taking her insulin and she began to feel ill a few days ago. She said that she was checking her blood sugar and noted that it was going up but never called her doctor. She said at one point she tried to get an appointment but could not get in. She said that she did not tell them that her blood sugar was going up and that she needed guidance. She been feeling poorly but not had any nausea or vomiting. She said her p.o. intake has not been good the last few days. She has been very thirsty and has been urinating a lot. Her constellation of lab findings confirmed a diagnosis of DKA. Hospital Course Hospital Course: She responded well to IV fluids and insulin replacement. We also had to correct some electrolyte disturbances. We got her back on her home insulin regimen and controlled her diet and her blood sugars did very well. Her labs and examination were reassuring and she was discharged in good condition. Physical Exam Vital Signs: Temp Pulse Resp BP Pulse Ox 97.8 F 68 16 103/59 L 99 03/21/18 10:59 03/21/18 10:59 03/21/18 10:59 03/21/18 10:59 03/21/18 10:59 Intake & Output 03/20/18 03/21/18 03/22/18 06:59 06:59 06:59 Intake Total 4654 3090 Output Total 1999 Balance 2654 3090 Weight 65.9 kg 69.7 kg General appearance: PRESENT: no acute distress, cooperative, disheveled Respiratory exam: PRESENT: clear to auscultation adriel, symmetrical, wheezes. A BSENT: accessory muscle use, crackles, rhonchi, tachypnea, unlabored Cardiovascular exam: PRESENT: RRR, +S1, +S2 Vascular exam: PRESENT: normal capillary refill GI/Abdominal exam: PRESENT: normal bowel sounds, soft. ABSENT: distended, guarding, rebound, tenderness Extremities exam: ABSENT: clubbing, pedal edema Musculoskeletal exam: PRESENT: normal inspection. ABSENT: deformity Neurological exam: PRESENT: alert, awake, oriented to person, oriented to place, oriented to time, oriented to situation Psychiatric exam: PRESENT: appropriate affect, normal mood Skin exam: PRESENT: dry, warm Results Laboratory Results: 03/19/18 19:41 03/20/18 15:54 03/20/18 15:54 Sodium 135.1 L Potassium 3.8 Chloride 105 Carbon Dioxide 25 Anion Gap 5 BUN 8 Creatinine 0.44 L Est GFR ( Amer) > 60 Est GFR (Non-Af Amer) > 60 Glucose 217 H Calcium 8.8 Qualifiers - * PATIENT BEING DISCHARGED WITH ANY OF THE FOLLOWING DIAGNOSIS: No
== END 2018-03-21 11:47 | disposition home or self-care (01) | DRG 639 ==
LOC: ER 08:57 → EH 11:30 → 3S 16:37
PROVIDERS: ADMIT Internal Medicine; ATTEND Internal Medicine
DX: E10.10 Type 1 diabetes mellitus with ketoacidosis without coma (principal); Z79.4 Long term (current) use of insulin; F17.200 Nicotine dependence, unspecified, uncomplicated; K21.9 Gastro-esophageal reflux disease without esophagitis; Z90.49 Acquired absence of other specified parts of digestive tract; Z88.6 Allergy status to analgesic agent; Z88.8 Allergy status to other drugs, medicaments and biological substances
CPT/HCPCS: 36415; 80048; 80053; 81001; 81025; 82803; 82962; 83690; 85025; 85027; 93005; 93010; 96361; 96374; 96375; 99291; J0610; J1815; J2270; J2405; J3480; J3490; J7030; J7060

== ENCOUNTER 2018-04-09 12:12 | Emergency (ER) | payer OTHER ==
[2018-04-09] MEDS ORDERED: LIDOCAINE 5% (700 MG) TRANSDERMAL ADH..PATCH TP ONE (12:29)
[2018-04-09] MEDS ORDERED: ACETAMINOPHEN 325 MG TABLET PO ONE (12:29)
--- NOTE | 2018-04-09 12:32 | ER Document Report ---
HPI - HPI Time Seen by Provider: 04/09/18 12:23 Pain Level: 5 Notes: Patient is a 27-year-old female with a history of insulin-dependent diabetes and previous DKA who presents the emergency department complaining of back pain from her thoracic back down to her lower back. Patient says that the pain will occasionally radiate down into her legs and resulted in some tingling to her feet. Patient does not recall any injury. She had a similar complaint at the visit a couple weeks ago. Patient states that bending twisting of the trunk make his pain worse. She is eating and drinking without any difficulties. She is urinating normally and having normal bowel movements. She has not had any injections or procedures to her lower back. Denies any IV drug abuse. No other concerns or complaints. No history of spinal abscess. Patient is able to ambulate without ability otherwise. Denies any headache, fever, neck pain, URI, sore throat, chest pain, palpitations, syncope, cough, shortness of breath, wheeze, dyspnea, abdominal pain, nausea/vomiting/diarrhea, urinary retention, dysuria, hematuria, loss of control of bowel or bladder, saddle anesthesia, muscle paralysis/weakness, or rash. - ROS Systems Reviewed and Negative: Yes All other systems reviewed and negative - REPRODUCTIVE Reproductive: DENIES: : Past Medical History - Social History Smoking Status: Current Every Day Smoker Family History: Reviewed & Not Pertinent, Malignancy, Thyroid Disfunction - Thyroid cancer - Past Medical History Cardiac Medical History: Denies: Hx Congestive Heart Failure, Hx DVT, Hx Heart Attack, Hx Hypercholesterolemia, Hx Hypertension, Hx Pulmonary Embolism Pulmonary Medical History: Denies: Hx Asthma, Hx COPD Neurological Medical History: Denies: Hx Seizures Endocrine Medical History: Reports: Hx Diabetes Mellitus Type 1. Denies: Hx Hyperthyroidism, Hx Hypothyroidism Renal/ Medical History: Reports: Hx Kidney Stones, Hx Ovarian Cysts. Denies: Hx Peritoneal Dialysis GI Medical History: Reports: Hx Gastroesophageal Reflux Disease. Denies: Hx Cirrhosis, Hx Hepatitis Musculoskeletal Medical History: Denies Hx Arthritis, Reports Hx Musculoskeletal Deformity, Reports Hx Musculoskeletal Trauma Skin Medical History: Denies Hx Eczema, Denies Hx Psoriasis Psychiatric Medical History: Reports: Hx Anxiety Denies: Hx Depression Infectious Medical History: Denies: Hx Hepatitis Past Surgical History: Reports: Hx Cholecystectomy, Hx Oral Surgery - Dental surgery, Hx Tubal Ligation, Other - Incision and drainage of multiple perirectal abscesses - Immunizations Hx Diphtheria, Pertussis, Tetanus Vaccination: Yes - 2016 [facility] Provider Document - CONSTITUTIONAL Agree With Documented VS: Yes Notes: PHYSICAL EXAMINATION: GENERAL: Well-appearing, well-nourished and in no acute distress. LUNGS: Breath sounds clear to auscultation bilaterally and equal. No wheezes rales or rhonchi. HEART: Regular rate and rhythm without murmurs, rubs, gallops. ABDOMEN: Soft, nontender, nondistended abdomen. No guarding, no rebound. No masses appreciated. Normal bowel sounds present. No CVA tenderness bilaterally. No pulsatile mass Musculoskeletal: LE's b/l: FROM to passive/active. Strength 5+/5. No deficits noted. No bony tenderness of extremities. Back: LROM to passive/active to flexion due to discomfort. Strength 5+/5. No stepoffs or deformities. + mild L-midline tenderness. No other bony tenderness, erythema, swelling, or ecchymosis. SLR negative b/l. + moderate tenderness to the L-paraspinal mm b/l. Mild spasming. No SI jt tenderness. No foot drop Extremities: No cyanosis, clubbing, or edema b/l. Peripheral pulses 2+. C apillary refill less than 2 seconds. NEUROLOGICAL: Normal speech, normal gait. Normal sensory, motor exams. Reflexes 2+ b/l. PSYCH: Normal mood, normal affect. SKIN: Warm, Dry, normal turgor, no rashes or lesions noted. - INFECTION CONTROL TRAVEL OUTSIDE OF THE [place] IN LAST 30 DAYS: No Course - Re-evaluation Re-evalutation: 04/09/18 13:31 Patient is an afebrile, well-hydrated, 27-year-old female who presents to the ED with low back pain. Vitals are acceptable. PE is otherwise unremarkable for any focal neurological deficits. X-ray was unremarkable for any acute pathology aside from 9mm nonobstructing kidney stone. Patient was given Toradol and Lidoderm patch. She has no significant tachycardia, tachypnea, or hypoxia. She is nontoxic-appearing and is tolerating p.o. without difficulties. There are no signs of infection. No other red flag symptoms noted. No other labs or imaging warranted at this time based on H&P. Low suspicion for any meningitis, fracture, expanding/ruptured AAA, cauda equina syndrome, epidural mass lesion/abscess, herniated disc causing severe spinal stenosis, or other systemic infection at this time. Patient is aware that this condition can change from initial presentation and that she needs monitor symptoms closely for any acute changes. I will send her home with a prescription for flexeril and lidoderm patches. Conservative measures otherwise for symptoms. Recheck with your PCM in 3-5 days. Consider consult with orthopedic/physical therapy. Return to the ED with any worsening/concerning symptoms otherwise as reviewed discharge. Patient is in agreement. - Vital Signs Vital signs: Temp Pulse Resp BP Pulse Ox 97.9 F 108 H 14 125/73 100 04/09/18 12:16 04/09/18 12:16 04/09/18 12:16 04/09/18 12:16 04/09/18 12:16 Discharge - Discharge Clinical Impression: Low back pain Qualifiers: Chronicity: acute Back pain laterality: bilateral Sciatica presence: unspecified whether sciatica present Qualified Code(s): M54.5 - Low back pain Condition: Stable Disposition: HOME, SELF-CARE Instructions: Low Back Pain ([facility]), Stretching Exercises for the Back ([facility]) Additional Instructions: Rest, Ice Tylenol/ibuprofen as needed Light stretches daily Strength exercises as able Moist heat and massage may help F/u with your PCP in 3-5 days for a recheck Consider consult(s) with Orthopedics/physical therapy for ongoing/worsening symptoms Return to the ED with any worsening symptoms and/or development of fever, headache, chest pain, palpitations, syncope, shortness of breath, trouble breathing, abdominal pain, n/v/d, blood in stool/urine, loss of control of bowel/bladder, urinary retention, muscle weakness/paralysis, saddle anesthesia, numbness/tingling, or other worsening symptoms that are concerning to you. Prescriptions: Cyclobenzaprine HCl [Flexeril 10 mg Tablet] 10 mg PO TIDP PRN #15 tab PRN Reason: Lidocaine [Lidoderm 5% (700 mg) Transdermal Patch] 1 patch TP DAILY #10 adh..patch Referrals: DENVER STAFFORD PA-C [Primary Care Provider] - Follow up as needed [facility] [Provider Group] - Follow up as needed
--- NOTE | 2018-04-09 13:07 | RADIOLOGY REPORT (SQ) ---
EXAM DESCRIPTION: L SPINE WHOLE COMPLETED DATE/TIME: 04/09/2018 12:57 pm REASON FOR STUDY: low back pain COMPARISON: Lumbar spine five views 06/07/2017 NUMBER OF VIEWS: Five views including obliques. TECHNIQUE: AP, lateral, oblique, and sacral radiographic images acquired of the lumbar spine. LIMITATIONS: None. FINDINGS: MINERALIZATION: Normal. SEGMENTATION: Normal. No transitional anatomy. ALIGNMENT: Normal. VERTEBRAE: Maintained height. No fracture or worrisome bone lesion. DISCS: Preserved height. No significant osteophytes or end plate irregularity. POSTERIOR ELEMENTS: Pedicles and facets are intact. No pars defect or posterior arch defects. HARDWARE: None in the spine. PARASPINAL SOFT TISSUES: 9 mm left lower pole intrarenal nonobstructive stone. Clips post tubal liga tion PELVIS: Not in the field of view. SI joints unremarkable OTHER: No other significant finding. IMPRESSION: Left lower pole 9 mm intrarenal nonobstructive kidney stone. Otherwise unremarkable study TECHNICAL DOCUMENTATION: JOB ID: [id number] [employer]- All Rights Reserved Reading location - IP/workstation name: [email or web address]
[2018-04-09 13:49] VITALS: BP 120/76
== END 2018-04-09 13:49 | disposition home or self-care (01) ==
LOC: ER 12:12
DX: M54.5 Low back pain (principal); M54.6 Pain in thoracic spine; R25.2 Cramp and spasm; R20.2 Paresthesia of skin; N20.0 Calculus of kidney; E10.9 Type 1 diabetes mellitus without complications; F17.200 Nicotine dependence, unspecified, uncomplicated
CPT/HCPCS: 72110; 99283

== ENCOUNTER 2018-04-18 11:52 | Emergency (ER) | payer OTHER ==
[2018-04-18] MEDS ORDERED: FENTANYL CITRATE INJ/PF 100 MCG/2 ML AMPUL IV ONE ×2 (13:04→15:28)
[2018-04-18] MEDS ORDERED: NORMAL SALINE 1000 ML 1,000 ML IV ONE (13:08)
--- NOTE | 2018-04-18 13:08 | ER Document Report ---
ED Medical Screen (RME) - General Chief Complaint: Possible Kidney Stone Stated Complaint: URINARY ISSUE Time Seen by Provider: 04/18/18 13:00 Primary Care Provider: DENVER STAFFORD PA-C [Primary Care Provider] - Follow up as needed Mode of Arrival: Ambulatory Information source: Patient Notes: 27-year-old female with a history of kidney stones and diabetes presents emergency department with complaints of dysuria and right flank pain for the last week. She states that she passed a kidney stone 2 days ago. She is continuing to have the right flank pain. She states that it radiates into the right lower quadrant. She denies any alleviating or exacerbating factors. She states that she has tried Tylenol with minimal relief of symptoms. She denies any vaginal bleeding, vaginal discharge, fever, chills, diarrhea, constipation, increased urgency, increased frequency. I have greeted and performed a rapid initial assessment of this patient. A comprehensive ED assessment and evaluation of the patient, analysis of test results and completion of the medical decision making process will be conducted by additional ED providers. PHYSICAL EXAMINATION: GENERAL: Well-appearing, well-nourished and in no acute distress. HEAD: Atraumatic, normocephalic. EYES: Pupils equal round extraocular movements intact, conjunctiva are normal. ENT: Nares patent NECK: Normal range of motion LUNGS: No respiratory distress Musculoskeletal: Normal range of motion NEUROLOGICAL: Normal speech, normal gait. PSYCH: Normal mood, normal affect. SKIN: Warm, Dry, normal turgor, no rashes or lesions noted. TRAVEL OUTSIDE OF THE [place] IN LAST 30 DAYS: No - Related Data Allergies/Adverse Reactions: aspirin Allergy (Mild, Verified 04/18/18 12:31) Hives ibuprofen Allergy (Mild, Verified 04/18/18 12:31) Hives tramadol Allergy (Mild, Verified 04/18/18 12:31) Hives ketorolac [From Toradol] Allergy (Verified 04/18/18 12:31) Past Medical History - Social History Chew tobacco use (# tins/day): No Frequency of alcohol use: Rare Drug Abuse: None Family history: Reviewed & Not Pertinent - Past Medical History Cardiac Medical History: Denies: Hx Congestive Heart Failure, Hx DVT, Hx Heart Attack, Hx Hypercholesterolemia, Hx Hypertension, Hx Pulmonary Embolism Pulmonary Medical History: Denies: Hx Asthma, Hx COPD Neurological Medical History: Denies: Hx Seizures Endocrine Medical History: Reports: Hx Diabetes Mellitus Type 1. Denies: Hx Hyperthyroidism, Hx Hypothyroidism Renal/ Medical History: Reports: Hx Kidney Stones, Hx Ovarian Cysts. Denies: Hx Peritoneal Dialysis GI Medical History: Reports: Hx Gastroesophageal Reflux Disease. Denies: Hx Cirrhosis, Hx Hepatitis Musculoskeltal Medical History: Denies Hx Arthritis, Reports Hx Musculoskeletal Deformity, Reports Hx Musculoskeletal Trauma Skin Medical History: Denies Hx Eczema, Denies Hx Psoriasis Psychiatric Medical History: Reports: Hx Anxiety Denies: Hx Depression Infectious Medical History: Denies: Hx Hepatitis Past Surgical History: Reports: Hx Cholecystectomy, Hx Oral Surgery - Dental surgery, Hx Tubal Ligation, Other - Incision and drainage of multiple perirectal abscesses - Immunizations Hx Diphtheria, Pertussis, Tetanus Vaccination: Yes - 2016 History of Influenza Vaccine for 12/2016 - 05/2017 Season: Refused Physical Exam - Vital signs Vitals: Temp Pulse Resp BP Pulse Ox 98.4 F 116 H 20 114/71 98 04/18/18 11:56 04/18/18 11:56 04/18/18 11:56 04/18/18 11:56 04/18/18 11:56 Course - Vital Signs Vital signs: Temp Pulse Resp BP Pulse Ox 98.4 F 116 H 20 114/71 98 04/18/18 11:56 04/18/18 11:56 04/18/18 11:56 04/18/18 11:56 04/18/18 11:56 Doctor's Discharge - Discharge Referrals: DENVER STAFFORD PA-C [Primary Care Provider] - Follow up as needed
[2018-04-18 13:18] LABS: APPEARANCE,URINE CLOUDY; BILIRUBIN,URINE NEGATIVE (NEGATIVE); GLUCOSE, URINE NEGATIVE (NEGATIVE); KETONES,URINE NEGATIVE (NEGATIVE); LEUKOCYTE ESTERASE,URINE MODERATE (NEGATIVE); NITRITE,URINE POSITIVE (NEGATIVE); PROTEIN,URINE 100 mg/dL (NEGATIVE); URINE SPECIFIC GRAVITY 1.021
[2018-04-18 13:20] LABS: COLOR,URINE DARK YELLOW
[2018-04-18] MEDS ORDERED: DEXTROSE 50%-WATER 25 GM/50 ML DISP.SYRIN IV ONE (13:20)
[2018-04-18] MEDS ORDERED: ONDANSETRON 4 MG TAB.RAPDIS PO ONE (13:21)
--- NOTE | 2018-04-18 13:21 | ER Document Report ---
Doctor's Note Notes: 04/18/18 13:21 accucheck obtained. Blood sugar 59. With patient having ongoing abdominal pain, nausea, vomiting, will give D50.
[2018-04-18 13:41] LABS: ABSOLUTE BASOPHILS # (AUTO) 0.1 10^3/uL (0.0-0.2); ABSOLUTE EOSINOPHILS # (AUTO) 0.1 10^3/uL (0.0-0.6); ABSOLUTE LYMPHOCYTES (AUTO) 2.2 10^3/uL (0.5-4.7); ABSOLUTE MONOCYTES (AUTO) 0.4 10^3/uL (0.1-1.4); BASOPHILS % (AUTO) 0.9 % (0-2); EOSINOPHILS % (AUTO) 1.2 % (0-6); HEMATOCRIT 42.1 % (36.0-47.0); HEMOGLOBIN 14.5 g/dL (12.0-15.5); LYMPHOCYTES % (AUTO) 25.3 % (13-45); MEAN CORPUSCULAR HEMOGLOBIN 31.2 pg (27.0-33.4); MEAN CORPUSCULAR HGB CONC 34.5 g/dL (32.0-36.0); MEAN CORPUSCULAR VOLUME 91 fl (80-97); MONOCYTES % (AUTO) 4.9 % (3-13); PLATELET COUNT 297 10^3/uL (150-450); RED BLOOD COUNT 4.65 10^6/uL (3.72-5.28); SEGMENTED NEUTROPHILS % (AUTO) 67.7 % (42-78); TOTAL CELLS COUNTED % (AUTO) 100 %; WHITE BLOOD COUNT 8.8 10^3/uL (4.0-10.5)
[2018-04-18 13:58] LABS: ALANINE AMINOTRANSFERASE 26 U/L (9-52); ALBUMIN 4.1 g/dL (3.5-5.0); ALKALINE PHOSPHATASE 118 U/L (38-126); ANION GAP 8 (5-19); ASPARTATE AMINO TRANSFERASE 29 U/L (14-36); BILIRUBIN,DIRECT 0.1 mg/dL (0.0-0.4); BILIRUBIN,TOTAL 0.3 mg/dL (0.2-1.3); BLOOD UREA NITROGEN 10 mg/dL (7-20); CALCIUM 9.5 mg/dL (8.4-10.2); CARBON DIOXIDE 30 mmol/L (22-30); CHLORIDE 101 mmol/L (98-107); POTASSIUM 4.1 mmol/L (3.6-5.0); TOTAL PROTEIN 6.6 g/dL (6.3-8.2)
[2018-04-18 14:00] LABS: GLUCOSE 61 mg/dL (75-110)
[2018-04-18] MEDS ORDERED: CEFTRIAXONE 1 GM/D5W RTU 1 GM/50 ML RTUPB IV ONE (14:01)
--- NOTE | 2018-04-18 15:13 | RADIOLOGY REPORT (SQ) ---
EXAM DESCRIPTION: U/S RETROPERITON (RENAL/AORTA) COMPLETED DATE/TIME: 04/18/2018 2:48 pm REASON FOR STUDY: R flank pain COMPARISON: None. TECHNIQUE: Dynamic and static grayscale images acquired of the kidneys and bladder and recorded on P ACS. Additional selected color Doppler and spectral images recorded. LIMITATIONS: None. FINDINGS: RIGHT KIDNEY: Normal size. Normal echogenicity. No solid or suspicious masses. No hydronep hrosis. No calcifications. LEFT KIDNEY: Normal size. Normal echogenicity. No solid or suspicious masses. No hydronephrosis. No calcifications. BLADDER: No masses. OTHER FINDINGS: No other significant finding. IMPRESSION: NORMAL RENAL AND BLADDER ULTRASOUND. TECHNICAL DOCUMENTATION: JOB ID: [id number] [employer]- All Rights Reserved Reading location - IP/workstation name: [email or web address]
[2018-04-18] MEDS ORDERED: PHENAZOPYRIDINE HCL 200 MG TABLET PO ONE (15:29)
--- NOTE | 2018-04-18 15:32 | ER Document Report ---
ED General - General Chief Complaint: Possible Kidney Stone Stated Complaint: URINARY ISSUE Time Seen by Provider: 04/18/18 13:00 Primary Care Provider: DENVER STAFFORD PA-C [Primary Care Provider] - Follow up as needed Mode of Arrival: Ambulatory Notes: RME Provider note: 27-year-old female with a history of kidney stones and diabetes presents emergency department with complaints of dysuria and right flank pain for the last week. She states that she passed a kidney stone 2 days ago. She is continuing to have the right flank pain. She states that it radiates into the right lower quadrant. She denies any alleviating or exacerbating factors. She states that she has tried Tylenol with minimal relief of symptoms. She denies any vaginal bleeding, vaginal discharge, fever, chills, diarrhea, constipation, increased urgency, increased frequency. MY HPI: Upon my questioning and examination patient states she has bilateral flank pain. At this time patient denies any pain that radiates into her right or left lower groin. States she mostly has dysuria for the last 5 days. She is denying any vaginal discharge, vomiting, fever. She is requesting more pain medication at this time. She just returned from ultrasound and states "they pushed on my kidneys a lot." Past medical history: Diabetes Medications: NovoLog Allergies: Motrin, aspirin, tramadol, Toradol Last menstrual period 04/04/2018 TRAVEL OUTSIDE OF THE [place] IN LAST 30 DAYS: No - Related Data Allergies/Adverse Reactions: aspirin Allergy (Mild, Verified 04/18/18 12:31) Hives ibuprofen Allergy (Mild, Verified 04/18/18 12:31) Hives tramadol Allergy (Mild, Verified 04/18/18 12:31) Hives ketorolac [From Toradol] Allergy (Verified 04/18/18 12:31) Past Medical History - General Information source: Patient - Social History Smoking Status: Current Every Day Smoker Chew tobacco use (# tins/day): No Frequency of alcohol use: Rare Drug Abuse: None Family History: Reviewed & Not Pertinent, Malignancy, Thyroid Disfunction - Thyroid cancer Patient has suicidal ideation: No Patient has homicidal ideation: No - Past Medical History Cardiac Medical History: Denies: Hx Congestive Heart Failure, Hx DVT, Hx Heart Attack, Hx Hypercholesterolemia, Hx Hypertension, Hx Pulmonary Embolism Pulmonary Medical History: Denies: Hx Asthma, Hx COPD Neurological Medical History: Denies: Hx Seizures Endocrine Medical History: Reports: Hx Diabetes Mellitus Type 1. Denies: Hx Hyperthyroidism, Hx Hypothyroidism Renal/ Medical History: Reports: Hx Kidney Stones, Hx Ovarian Cysts. Denies: Hx Peritoneal Dialysis GI Medical History: Reports: Hx Gastroesophageal Reflux Disease. Denies: Hx Cirrhosis, Hx Hepatitis Musculoskeletal Medical History: Denies Hx Arthritis, Reports Hx Musculoskeletal Deformity, Reports Hx Musculoskeletal Trauma Skin Medical History: Denies Hx Eczema, Denies Hx Psoriasis Psychiatric Medical History: Reports: Hx Anxiety Denies: Hx Depression Infectious Medical History: Denies: Hx Hepatitis Past Surgical History: Reports: Hx Cholecystectomy, Hx Oral Surgery - Dental surgery, Hx Tubal Ligation, Other - Incision and drainage of multiple perirectal abscesses - Immunizations Hx Diphtheria, Pertussis, Tetanus Vaccination: Yes - 2016 Review of Systems - Review of Systems Constitutional: See HPI EENT: No symptoms reported Cardiovascular: No symptoms reported Respiratory: No symptoms reported Gastrointestinal: See HPI Genitourinary: See HPI Female Genitourinary: See HPI Musculoskeletal: No symptoms reported Skin: No symptoms reported Hematologic/Lymphatic: No symptoms reported Neurological/Psychological: No symptoms reported Physical Exam - Vital signs Vitals: Temp Pulse Resp BP Pulse Ox 98.4 F 116 H 20 114/71 98 04/18/18 11:56 04/18/18 11:56 04/18/18 11:56 04/18/18 11:56 04/18/18 11:56 - Notes Notes: GENERAL: Alert, interacts well. No acute distress. HEAD: Normocephalic, atraumatic. EYES: Pupils equal, round, and reactive to light. Extraocular movements intact. ENT: Oral mucosa moist, tongue midline. NECK: Full range of motion. Supple. Trachea midline. LUNGS: Clear to auscultation bilaterally, no wheezes, rales, or rhonchi. No respiratory distress. HEART: Regular rate and rhythm. No murmur ABDOMEN: Soft, non-tender. Non-distended. Bowel sounds present in all 4 quadrants. No McBurney's point tenderness, no Carballo sign. EXTREMITIES: Moves all 4 extremities spontaneously. No edema, normal radial and dorsalis pedis pulses bilaterally. No cyanosis. BACK: no cervical, thoracic, lumbar midline tenderness. No saddle anesthesia, normal distal neurovascular exam. Generalized bilateral CVA tenderness NEUROLOGICAL: Alert and oriented x3. Normal speech. cranial nerves II through XII grossly intact PSYCH: Normal affect, normal mood. SKIN: Warm, dry, normal turgor. No rashes or lesions noted. Course - Re-evaluation Re-evalutation: 04/18/18 15:33 Patient's labs show no signs of leukocytosis, no signs of anemia, no signs of electrolyte abnormalities. Patient's urine does show signs of urinary tract inf ection with large blood. This is questionable for kidney stones, patient states she has a history of kidney stones. Pain was in bilateral flanks and for me does not radiate into either groin at this time. The patient's ultrasound shows no signs of hydronephrosis. Her hCG is also negative. Discussed at length with patient at bedside treatment for urinary tract infection and potential passing o f a kidney stone due to increased blood on her urine. Discussed imaging modality as far as a CT is concerned. Patient wishes to decline CT at this time. Discussed home use of antibiotics and Pyridium for generalized dysuria. Patient is no longer tachycardic continues to be afebrile and overall appears well. Patient stable for discharge. - Vital Signs Vital signs: Temp Pulse Resp BP Pulse Ox 98.4 F 116 H 20 114/71 98 04/18/18 11:56 04/18/18 11:56 04/18/18 11:56 04/18/18 11:56 04/18/18 11:56 - Laboratory Result Diagrams: 04/18/18 13:18 04/18/18 13:18 Laboratory results interpreted by me: 04/18/18 04/18/18 12:53 13:18 Creatinine 0.45 L Glucose 61 L Urine Protein 100 H Urine Blood LARGE H Urine Nitrite POSITIVE H Urine Urobilinogen 2.0 H Ur Leukocyte Esterase MODERATE H Discharge - Discharge Clinical Impression: Urinary tract infection Qualifiers: Urinary tract infection type: acute cystitis Hematuria presence: with hematuria Qualified Code(s): N30.01 - Acute cystitis with hematuria Condition: Stable Disposition: HOME, SELF-CARE Instructions: Cephalexin ([facility]), Urinary Anesthetic Agent ([facility]), Urinary Tract Infection ([facility]) Additional Instructions: As we discussed you have been seen and treated in the emergency department for a urinary tract infection. You should take medications as prescribed. You should follow-up with your primary care provider in the next 24-48 hours. Please return to the emergency room for any other concerning symptoms Prescriptions: Cephalexin Monohydrate [Keflex 500 mg Capsule] 500 mg PO BID 7 Days #14 capsule Phenazopyridine HCl [Pyridium 200 mg Tablet] 200 mg PO TID #15 tablet Referrals: DENVER STAFFORD PA-C [Primary Care Provider] - Follow up as needed
[2018-04-18 15:53] VITALS: BP 105/55
== END 2018-04-18 16:10 | disposition home or self-care (01) ==
LOC: ER 11:52
DX: N30.01 Acute cystitis with hematuria (principal); R30.0 Dysuria; E11.9 Type 2 diabetes mellitus without complications; R10.9 Unspecified abdominal pain; R10.31 Right lower quadrant pain; R10.32 Left lower quadrant pain; Z79.899 Other long term (current) drug therapy; F17.200 Nicotine dependence, unspecified, uncomplicated
CPT/HCPCS: 96376; 99284; 96361; 96375; 96365; 36415; 87086; 82962; 85025; 81025; 87088; 80053; 81001; 87186; 76770; J3490 ×2; S0119; J3010; J7030; J0696

== ENCOUNTER 2018-07-11 16:02 | Emergency (ER) | payer SELFPAY ==
--- NOTE | 2018-07-11 17:05 | ER Document Report ---
ED Medical Screen (RME) - General Chief Complaint: Flank Pain Stated Complaint: FLANK PAIN/VAGINIAL BLEEDING Time Seen by Provider: 07/11/18 16:49 Primary Care Provider: DENVER STAFFORD PA-C [Primary Care Provider] - Follow up as needed Mode of Arrival: Ambulatory Information source: Patient TRAVEL OUTSIDE OF THE [place] IN LAST 30 DAYS: No - HPI Patient complains to provider of: LOW BACK PAIN, VAGINAL BLEEDING Notes: 07/11/18 16:58 Patient here with complaints of low back pain for the last 3 days. No trauma or injury. No numbness, tingling, weakness. No blood thinners. No bowel or bladder dysfunction. No IV drug use. She also states that she has been having vaginal bleeding for the last month. She had nausea, no vomiting or diarrhea. No fever. No dysuria. Exam Nontoxic, no distress. Tenderness across the lower back. No CVA tenderness to percussion. Mild diffuse tenderness to palpation of the abdomen with no focal areas of tenderness. Lungs clear and equal throughout. Mild tachycardia. Plan CBC, CMP, lipase, urine, urine . Will allow the provider and back to determine if advanced imaging is indicated at this visit. An initial examination was made on the patient as part of the triage process, and it was determined a more comprehensive evaluation was necessary. Initial labs were ordered and patient was transferred to another provider in the ED who assumed care and finished evaluation and plan. - Related Data Allergies/Adverse Reactions: aspirin Allergy (Mild, Verified 07/11/18 16:03) Hives ibuprofen Allergy (Mild, Verified 07/11/18 16:03) Hives tramadol Allergy (Mild, Verified 07/11/18 16:03) Hives ketorolac [From Toradol] Allergy (Verified 07/11/18 16:03) Past Medical History - Social History Frequency of alcohol use: None Drug Abuse: None Family history: Reviewed & Not Pertinent - Past Medical History Cardiac Medical History: Denies: Hx Congestive Heart Failure, Hx DVT, Hx Heart Attack, Hx Hypercholesterolemia, Hx Hypertension, Hx Pulmonary Embolism Pulmonary Medical History: Denies: Hx Asthma, Hx COPD Neurological Medical History: Denies: Hx Seizures Endocrine Medical History: Reports: Hx Diabetes Mellitus Type 1. Denies: Hx Hyperthyroidism, Hx Hypothyroidism Renal/ Medical History: Reports: Hx Kidney Stones, Hx Ovarian Cysts. Denies: Hx Peritoneal Dialysis GI Medical History: Reports: Hx Gastroesophageal Reflux Disease. Denies: Hx Cirrhosis, Hx Hepatitis Musculoskeltal Medical History: Denies Hx Arthritis, Reports Hx Musculoskeletal Deformity, Reports Hx Musculoskeletal Trauma Skin Medical History: Denies Hx Eczema, Denies Hx Psoriasis Psychiatric Medical History: Reports: Hx Anxiety Denies: Hx Depression Infectious Medical History: Denies: Hx Hepatitis Past Surgical History: Reports: Hx Cholecystectomy, Hx Oral Surgery - Dental surgery, Hx Tubal Ligation, Other - Incision and drainage of multiple perirectal abscesses - Immunizations Hx Diphtheria, Pertussis, Tetanus Vaccination: Yes - 2016 History of Influenza Vaccine for 12/2016 - 05/2017 Season: Refused Physical Exam - Vital signs Vitals: Temp Pulse Resp BP Pulse Ox 98.3 F 109 H 16 119/69 97 07/11/18 16:14 07/11/18 16:14 07/11/18 16:14 07/11/18 16:14 07/11/18 16:14 Course - Vital Signs Vital signs: Temp Pulse Resp BP Pulse Ox 98.3 F 109 H 16 119/69 97 07/11/18 16:14 07/11/18 16:14 07/11/18 16:14 07/11/18 16:14 07/11/18 16:14 Doctor's Discharge - Discharge Referrals: DENVER STAFFORD PA-C [Primary Care Provider] - Follow up as needed
[2018-07-11 17:24] LABS: ABSOLUTE BASOPHILS # (AUTO) 0.1 10^3/uL (0.0-0.2); ABSOLUTE EOSINOPHILS # (AUTO) 0.1 10^3/uL (0.0-0.6); ABSOLUTE MONOCYTES (AUTO) 0.4 10^3/uL (0.1-1.4); ABSOLUTE NEUT (AUTO) 6.4 10^3/uL (1.7-8.2); BASOPHILS % (AUTO) 0.7 % (0-2); EOSINOPHILS % (AUTO) 1.4 % (0-6); HEMATOCRIT 41.9 % (36.0-47.0); HEMOGLOBIN 14.2 g/dL (12.0-15.5); LYMPHOCYTES % (AUTO) 22.1 % (13-45); MEAN CORPUSCULAR HEMOGLOBIN 31.1 pg (27.0-33.4); MEAN CORPUSCULAR HGB CONC 33.8 g/dL (32.0-36.0); MEAN CORPUSCULAR VOLUME 92 fl (80-97); PLATELET COUNT 268 10^3/uL (150-450); RED BLOOD COUNT 4.56 10^6/uL (3.72-5.28); RED CELL DISTRIBUTION WIDTH 13.5 % (11.5-14.0); SEGMENTED NEUTROPHILS % (AUTO) 71.8 % (42-78); TOTAL CELLS COUNTED % (AUTO) 100 %; WHITE BLOOD COUNT 8.8 10^3/uL (4.0-10.5)
[2018-07-11 17:40] LABS: ALANINE AMINOTRANSFERASE 29 U/L (9-52); ALBUMIN 3.8 g/dL (3.5-5.0); ALKALINE PHOSPHATASE 150 U/L (38-126); ANION GAP 10 (5-19); ASPARTATE AMINO TRANSFERASE 19 U/L (14-36); BILIRUBIN,DIRECT 0.3 mg/dL (0.0-0.4); BILIRUBIN,TOTAL 0.3 mg/dL (0.2-1.3); BLOOD UREA NITROGEN 14 mg/dL (7-20); CALCIUM 9.7 mg/dL (8.4-10.2); CARBON DIOXIDE 29 mmol/L (22-30); CHLORIDE 98 mmol/L (98-107); GLUCOSE 346 mg/dL (75-110); LIPASE 93.1 U/L (23-300); POTASSIUM 4.7 mmol/L (3.6-5.0); SODIUM 136.5 mmol/L (137-145); TOTAL PROTEIN 6.5 g/dL (6.3-8.2)
[2018-07-11 17:43] LABS: APPEARANCE,URINE CLEAR; BILIRUBIN,URINE NEGATIVE (NEGATIVE); COLOR,URINE YELLOW; GLUCOSE, URINE >=500 mg/dL (NEGATIVE); KETONES,URINE TRACE mg/dL (NEGATIVE); LEUKOCYTE ESTERASE,URINE NEGATIVE (NEGATIVE); NITRITE,URINE NEGATIVE (NEGATIVE); PROTEIN,URINE NEGATIVE (NEGATIVE); URINE SPECIFIC GRAVITY 1.033; UROBILINOGEN,URINE NEGATIVE mg/dL (<2.0)
[2018-07-11] MEDS ORDERED: NORMAL SALINE 1000 ML 1,000 ML IV ONE (18:52)
[2018-07-11] MEDS ORDERED: MORPHINE SULFATE 10 MG/ML INJ IV ONE (18:52)
[2018-07-11] MEDS ORDERED: ONDANSETRON HCL INJ/PF 4 MG/2 ML SDV IV ONE (18:52)
--- NOTE | 2018-07-11 19:27 | ER Document Report ---
ED General - General Chief Complaint: Flank Pain Stated Complaint: FLANK PAIN/VAGINIAL BLEEDING Time Seen by Provider: 07/11/18 16:49 Primary Care Provider: [facility] [Provider Group] - Follow up as needed DENVER STAFFORD PA-C [Primary Care Provider] - Follow up as needed Mode of Arrival: Ambulatory Notes: Patient is a 27-year-old female with history of kidney stones that presents to the emergency department for chief complaint of flank pain. Patient states that her pain started 3 days ago got progressively worse, she is had associated nausea but no vomiting. She describes the pain as a 10 out of 10, describes as constant and aching and occasionally stabbing sensation. Some both flanks. She denies noting hematuria, but has been planing of vaginal bleeding which has been ongoing for the past month, which is abnormal for her, she denies having any vaginal discharge, and does not believe that she is , she had a tubal ligation, not currently on any oral contraceptive pills. She denies noting any dysuria or noting hematuria, denies any frequency, fevers, chills, night sweats, chest pain or shortness of breath. Past Medical History: Type 1 diabetes mellitus, kidney stones Past Surgical History: Tubal ligation Social History: Admits to smoking cigarettes, denies alcohol or drug use. Family History: Reviewed and noncontributory for presenting illness Allergies: Reviewed, see documented allergy list. REVIEW OF SYSTEMS: Other than noted above, the 12 point review of systems was reviewed with the patient and were negative, all pertinent findings are included in the HPI. PHYSICAL EXAMINATION: Vital signs reviewed, nursing noted reviewed. GENERAL: Patient appears uncomfortable on exam, but in no immediate distress. HEAD: Atraumatic, normocephalic. EYES: Eyes appear normal, extraocular movements intact, sclera anicteric, conjunctiva are normal. ENT: nares patent, oropharynx clear without exudates. Moist mucous membranes. NECK: Normal range of motion, supple without lymphadenopathy LUNGS: Breath sounds clear to auscultation bilaterally and equal. No wheezes rales or rhonchi. HEART: Heart rate tachycardic, regular rhythm. ABDOMEN: Soft, left flank tenderness with palpation, normoactive bowel sounds. No rebound, guarding, or rigidity. No masses appreciated. EXTREMITIES: Nontender, good range of motion, no pitting or edema. NEUROLOGICAL: No focal neurological deficits. Moves all extremities spontaneously Motor and sensory grossly intact on exam. PSYCH: Normal mood, normal affect. SKIN: Warm, Dry, normal turgor, no rashes or lesions noted on exposed skin TRAVEL OUTSIDE OF THE [place] IN LAST 30 DAYS: No - Related Data Allergies/Adverse Reactions: aspirin Allergy (Mild, Verified 07/11/18 16:03) Hives ibuprofen Allergy (Mild, Verified 07/11/18 16:03) Hives tramadol Allergy (Mild, Verified 07/11/18 16:03) Hives ketorolac [From Toradol] Allergy (Verified 07/11/18 16:03) Past Medical History - General Information source: Patient - Social History Smoking Status: Current Every Day Smoker Frequency of alcohol use: None Drug Abuse: None Family History: Reviewed & Not Pertinent, Malignancy, Thyroid Disfunction - Thyroid cancer Patient has suicidal ideation: No Patient has homicidal ideation: No - Past Medical History Cardiac Medical History: Denies: Hx Congestive Heart Failure, Hx DVT, Hx Heart Attack, Hx Hypercholesterolemia, Hx Hypertension, Hx Pulmonary Embolism Pulmonary Medical History: Denies: Hx Asthma, Hx COPD Neurological Medical History: Denies: Hx Seizures Endocrine Medical History: Reports: Hx Diabetes Mellitus Type 1. Denies: Hx Hyperthyroidism, Hx Hypothyroidism Renal/ Medical History: Reports: Hx Kidney Stones, Hx Ovarian Cysts. Denies: Hx Peritoneal Dialysis GI Medical History: Reports: Hx Gastroesophageal Reflux Disease. Denies: Hx Cirrhosis, Hx Hepatitis Musculoskeletal Medical History: Denies Hx Arthritis, Reports Hx Musculoskeletal Deformity, Reports Hx Musculoskeletal Trauma Skin Medical History: Denies Hx Eczema, Denies Hx Psoriasis Psychiatric Medical History: Reports: Hx Anxiety Denies: Hx Depression Infectious Medical History: Denies: Hx Hepatitis Past Surgical History: Reports: Hx Cholecystectomy, Hx Oral Surgery - Dental surgery, Hx Tubal Ligation, Other - Incision and drainage of multiple perirectal abscesses - Immunizations Hx Diphtheria, Pertussis, Tetanus Vaccination: Yes - 2015 Physical Exam - Vital signs Vitals: Temp Pulse Resp BP Pulse Ox 98.3 F 109 H 16 119/69 97 07/11/18 16:14 07/11/18 16:14 07/11/18 16:14 07/11/18 16:14 07/11/18 16:14 Course - Re-evaluation Re-evalutation: Patient seen and examined vital signs reviewed. Laboratory data and/or imaging were ordered as appropriate for the patient's presenting symptoms and complaint, with consideration of any critical or life threatening conditions that may be associated with their obtained history and exam as noted above. Patient was treated with IV fluids, morphine, Zofran Results were reviewed when available and demonstrated UA with small hematuria, no evidence of infection, blood work was essentially unremarkable, no significant anemia, she was having hyperglycemia, patient is an insulin- dependent diabetic, and is not administered insulin recently. I reviewed the CT scan myself, demonstrated it appeared to be a renal stone at the UVJ on the left. Radiologist interpreted as negative, however given patient's symptomatology, and what appeared to me as a stone at the UVJ, we will treat the patient as such, have her follow-up with urology The patient was re-evaluated and was improved, but still having some pain, she was given a dose of IV Dilaudid, and ordered Flomax after reviewing CT scan. Evaluation was most consistent with ureteral stone, vaginal bleeding, have her follow-up with urology and [employer] [employer], patient was agreeable, given prescription for Flomax and [place] and advised follow-up. Results were discussed with the patient at this point, after careful consideration I feel that that patient can be discharged from the emergency department, the patient was educated treatments and reasons to return to the emergency department based on their presumed diagnosis as noted above, they were advised to followup with a primary care physician in 2-3 days. Patient was agre eable to plan of care. *Note is created using voice recognition software and may contain spelling, syntax or grammatical errors. Laboratory 07/11/18 07/11/18 07/11/18 16:15 17:05 17:05 WBC 8.8 RBC 4.56 Hgb 14.2 Hct 41.9 MCV 92 MCH 31.1 MCHC 33.8 RDW 13.5 Plt Count 268 Seg Neutrophils % 71.8 Lymphocytes % 22.1 Monocytes % 4.0 Eosinophils % 1.4 Basophils % 0.7 Absolute Neutrophils 6.4 Absolute Lymphocytes 2.0 Absolute Monocytes 0.4 Absolute Eosinophils 0.1 Absolute Basophils 0.1 Sodium 136.5 L Potassium 4.7 Chloride 98 Carbon Dioxide 29 Anion Gap 10 BUN 14 Creatinine 0.47 L Est GFR ( Amer) > 60 Est GFR (Non-Af Amer) > 60 Glucose 346 H Calcium 9.7 Total Bilirubin 0.3 Direct Bilirubin 0.3 Neonat Total Bilirubin Not Reportable Neonat Direct Bilirubin Not Reportable Neonat Indirect Bili Not Reportable AST 19 ALT 29 Alkaline Phosphatase 150 H Total Protein 6.5 Albumin 3.8 Lipase 93.1 Urine Color YELLOW Urine Appearance CLEAR Urine pH 5.0 Ur Specific [place] 1.033 Urine Protein NEGATIVE Urine Glucose (UA) >=500 H Urine Ketones TRACE H Urine Blood SMALL H Urine Nitrite NEGATIVE Urine Bilirubin NEGATIVE Urine Urobilinogen NEGATIVE Ur Leukocyte Esterase NEGATIVE Urine WBC (Auto) 2 Urine RBC (Auto) 3 Squamous Epi Cells Auto 2 Urine Mucus (Auto) RARE Urine Ascorbic Acid NEGATIVE Urine HCG, Qual NEGATIVE Abdomen/Pelvis CT 07/11/18 18:53 IMPRESSION: 1. Bilateral renal calculi as on prior exam. No ureteral calculi or hydronephrosis 2. Nonspecific small bowel air-fluid levels, possibly a mild ileus. No evidence for bowel obstruction or perforation. 3. No acute inflammatory changes. - Vital Signs Vital signs: Temp Pulse Resp BP Pulse Ox 98.3 F 109 H 16 119/69 97 07/11/18 16:14 07/11/18 16:14 07/11/18 16:14 07/11/18 16:14 07/11/18 16:14 - Laboratory Result Diagrams: 07/11/18 17:05 07/11/18 17:05 Laboratory results interpreted by me: 07/11/18 07/11/18 16:15 17:05 Sodium 136.5 L Creatinine 0.47 L Glucose 346 H Alkaline Phosphatase 150 H Urine Glucose (UA) >=500 H Urine Ketones TRACE H Urine Blood SMALL H Discharge - Discharge Clinical Impression: Ureteral stone, Abnormal vaginal bleeding Condition: Stable Disposition: HOME, SELF-CARE Instructions: Kidney Stone ([facility]), Vaginal Bleeding ([facility]) Additional Instructions: Please take all medication as prescribed, and follow-up with urology, as well as [facility] [employer], call to make appointments as soon as possible. [email or web address] [address] [email or web address] [address] [facility] [email or web address] [address] Prescriptions: Hydrocodone/Acetaminophen [[place] 5-325 Tablet] 1 each PO Q8H PRN #10 tablet PRN Reason: flank pain Ondansetron [Zofran Odt 4 mg Tablet] 1 tab PO Q8H PRN #15 tab.rapdis PRN Reason: For Nausea/Vomiting Tamsulosin HCl [Flomax 0.4 mg Cap.sr] 0.4 mg PO DAILY #7 cap.sr.24h Referrals: DENVER STAFFORD PA-C [Primary Care Provider] - Follow up as needed [facility] [Provider Group] - Follow up in 3-5 days
[2018-07-11] MEDS ORDERED: TAMSULOSIN HCL 0.4 MG CAP.SR.24H PO ONE (20:36)
[2018-07-11] MEDS ORDERED: HYDROMORPHONE HCL INJ/PF 2 MG/ML AMPULE IV ONE (20:41)
--- NOTE | 2018-07-11 21:05 | RADIOLOGY REPORT (SQ) ---
EXAM DESCRIPTION: RadLex: CT ABDOMEN PELVIS WITHOUT IV CONTRAST CLINICAL HISTORY: 27 years Female; bilateral flank pain, hx stones TECHNIQUE: CT of the abdomen and pelvis without contrast. All CT scans at this facility use dose modulation, iterative reconstruction, and/or weight based dosing when appropriate to reduce radiation dose to as low as reasonably achievable. COMPARISON: 05/08/2017 FINDINGS: Abdomen: Liver:No focal lesions. No intrahepatic ductal distention. Gallbladder:Negative Pancreas:Within normal limits Spleen:Within normal limits Right kidney: Punctate lower pole calculus. No hydronephrosis. No ureteral calculi. Left kidney: 5 mm lower pole calculus. No hydronephrosis. No ureteral calculi. Adrenal glands:Within normal limits Vascular structures:Within normal limits (although limited evaluation on noncontrast exam). Pelvis: Small bowel: There are scattered air-fluid levels, with minimal distention of a few loops in the left upper quadrant. No acute mesenteric edema. No adenopathy. Note that evaluation is somewhat limited due to lack of oral contrast. Appendix:Within normal limits Colon:No distention or acute pericolonic edema. No free intraperitoneal fluid or air. Uterus: Bilateral tubal ligation clips are again noted. Tampon is in place. No adnexal enlargement. No acute pelvic soft tissue edema. Bladder is unremarkable. Note that evaluation of the bowel and solid organs is somewhat limited due to lack of intravenous and oral contrast. IMPRESSION: 1. Bilateral renal calculi as on prior exam. No ureteral calculi or hydronephrosis 2. Nonspecific small bowel air-fluid levels, possibly a mild ileus. No evidence for bowel obstruction or perforation. 3. No acute inflammatory changes.
[2018-07-11 21:43] VITALS: BP 120/78
== END 2018-07-11 21:43 | disposition home or self-care (01) ==
LOC: ER 16:02
DX: N20.1 Calculus of ureter (principal); N20.0 Calculus of kidney; N93.9 Abnormal uterine and vaginal bleeding, unspecified; E10.65 Type 1 diabetes mellitus with hyperglycemia; R10.9 Unspecified abdominal pain; R11.0 Nausea; R31.9 Hematuria, unspecified; R00.0 Tachycardia, unspecified; Z98.51 Tubal ligation status; Z87.442 Personal history of urinary calculi; F17.210 Nicotine dependence, cigarettes, uncomplicated; Z88.6 Allergy status to analgesic agent; Z88.5 Allergy status to narcotic agent; Z88.8 Allergy status to other drugs, medicaments and biological substances; Z87.19 Personal history of other diseases of the digestive system; Z90.49 Acquired absence of other specified parts of digestive tract
CPT/HCPCS: 99284; 96361; 96374; 96375; 36415; 83690; 85025; 81025; 80053; 81001; 74176; J2270; J1170; J2405; J7030

== ENCOUNTER 2018-07-14 11:53 | Inpatient (IN) | payer SELFPAY ==
[2018-07-14] MEDS ORDERED: NORMAL SALINE 1000 ML 1,000 ML IV ONE ×2 (12:22→14:00)
[2018-07-14] MEDS ORDERED: ONDANSETRON HCL INJ/PF 4 MG/2 ML SDV IV ONE (12:25)
--- NOTE | 2018-07-14 12:26 | ER Document Report ---
ED Medical Screen (RME) - General Chief Complaint: Nausea/Vomiting Stated Complaint: VOMITING Time Seen by Provider: 07/14/18 12:21 Primary Care Provider: DENVER STAFFORD PA-C [Primary Care Provider] - Follow up as needed Mode of Arrival: Wheelchair Information source: Patient Notes: Patient presents emergency department with complaints of vomiting for the past 3 days. Patient reports she is a diabetic and her sugar is high. Accu-Chek 438 noted. Patient actively vomiting. History of recent kidney stone which she reports she has passed. I have greeted and performed a rapid initial assessment of this patient. A comprehensive ED assessment and evaluation of the patient, analysis of test results and completion of the medical decision making process will be conducted by additional ED providers. Dictation of this chart was performed using voice recognition software; therefore, there may be some unintended grammatical errors. TRAVEL OUTSIDE OF THE [place] IN LAST 30 DAYS: No - Related Data Allergies/Adverse Reactions: aspirin Allergy (Mild, Verified 07/14/18 12:15) Hives ibuprofen Allergy (Mild, Verified 07/14/18 12:15) Hives tramadol Allergy (Mild, Verified 07/14/18 12:15) Hives ketorolac [From Toradol] Allergy (Verified 07/14/18 12:15) Past Medical History - Social History Family history: Reviewed & Not Pertinent - Past Medical History Cardiac Medical History: Denies: Hx Congestive Heart Failure, Hx DVT, Hx Heart Attack, Hx Hypercholesterolemia, Hx Hypertension, Hx Pulmonary Embolism Pulmonary Medical History: Denies: Hx Asthma, Hx COPD Neurological Medical History: Denies: Hx Seizures Endocrine Medical History: Reports: Hx Diabetes Mellitus Type 1. Denies: Hx Hyperthyroidism, Hx Hypothyroidism Renal/ Medical History: Reports: Hx Kidney Stones, Hx Ovarian Cysts. Denies: Hx Peritoneal Dialysis GI Medical History: Reports: Hx Gastroesophageal Reflux Disease. Denies: Hx Cirrhosis, Hx Hepatitis Musculoskeltal Medical History: Denies Hx Arthritis, Reports Hx Musculoskeletal Deformity, Reports Hx Musculoskeletal Trauma Skin Medical History: Denies Hx Eczema, Denies Hx Psoriasis Psychiatric Medical History: Reports: Hx Anxiety Denies: Hx Depression Infectious Medical History: Denies: Hx Hepatitis Past Surgical History: Reports: Hx Cholecystectomy, Hx Oral Surgery - Dental surgery, Hx Tubal Ligation, Other - Incision and drainage of multiple perirectal abscesses - Immunizations Hx Diphtheria, Pertussis, Tetanus Vaccination: Yes - 2016 History of Influenza Vaccine for 12/2016 - 05/2017 Season: Refused Physical Exam - Vital signs Vitals: Pulse Resp BP Pulse Ox 132 H 18 136/93 H 99 07/14/18 12:06 07/14/18 12:06 07/14/18 12:06 07/14/18 12:06 Course - Vital Signs Vital signs: Temp Pulse Resp BP Pulse Ox 132 H 18 136/93 H 99 07/14/18 12:06 07/14/18 12:06 07/14/18 12:06 07/14/18 12:06 Doctor's Discharge - Discharge Referrals: DENVER STAFFORD PA-C [Primary Care Provider] - Follow up as needed
[2018-07-14 13:02] LABS: VENOUS BLOOD BASE EXCESS -21.4 mmol/L; VENOUS BLOOD HCO3 5.3 mmol/L (20-32)
[2018-07-14 13:06] LABS: VENOUS BLOOD PCO2 16.4 mmHg (35-63); VENOUS BLOOD PH 7.13 (7.30-7.42)
[2018-07-14 13:15] LABS: HEMATOCRIT 49.9 % (36.0-47.0); HEMOGLOBIN 16.2 g/dL (12.0-15.5); RED BLOOD COUNT 5.13 10^6/uL (3.72-5.28); WHITE BLOOD COUNT 8.4 10^3/uL (4.0-10.5)
[2018-07-14 13:16] LABS: ABSOLUTE EOSINOPHILS # (AUTO) 0.1 10^3/uL (0.0-0.6); ABSOLUTE LYMPHOCYTES (AUTO) 1.6 10^3/uL (0.5-4.7); ABSOLUTE MONOCYTES (AUTO) 0.3 10^3/uL (0.1-1.4); ABSOLUTE NEUT (AUTO) 6.4 10^3/uL (1.7-8.2); BASOPHILS % (AUTO) 0.4 % (0-2); EOSINOPHILS % (AUTO) 0.7 % (0-6); LYMPHOCYTES % (AUTO) 19.2 % (13-45); MEAN CORPUSCULAR HEMOGLOBIN 31.5 pg (27.0-33.4); MEAN CORPUSCULAR HGB CONC 32.4 g/dL (32.0-36.0); PLATELET COUNT 353 10^3/uL (150-450); RED CELL DISTRIBUTION WIDTH 14.2 % (11.5-14.0); SEGMENTED NEUTROPHILS % (AUTO) 75.7 % (42-78); TOTAL CELLS COUNTED % (AUTO) 100 %
[2018-07-14 13:28] LABS: ALANINE AMINOTRANSFERASE 48 U/L (9-52); ALBUMIN 4.6 g/dL (3.5-5.0); ALKALINE PHOSPHATASE 229 U/L (38-126); ASPARTATE AMINO TRANSFERASE 35 U/L (14-36); BILIRUBIN,DIRECT 0.3 mg/dL (0.0-0.4); BILIRUBIN,TOTAL 0.3 mg/dL (0.2-1.3); BLOOD UREA NITROGEN 9 mg/dL (7-20); CALCIUM 9.3 mg/dL (8.4-10.2); CHLORIDE 102 mmol/L (98-107); POTASSIUM 5.3 mmol/L (3.6-5.0); TOTAL PROTEIN 7.5 g/dL (6.3-8.2)
[2018-07-14 13:35] LABS: SODIUM 140.7 mmol/L (137-145)
[2018-07-14 13:45] LABS: MEAN CORPUSCULAR VOLUME 97 fl (80-97)
[2018-07-14 13:48] LABS: ANION GAP 34 (5-19)
[2018-07-14 13:49] LABS: CARBON DIOXIDE 5 mmol/L (22-30)
[2018-07-14 13:50] LABS: GLUCOSE 564 mg/dL (75-110)
[2018-07-14] MEDS ORDERED: INSULIN REG, HUMAN 100 UNIT/ML 3 ML VIAL (PYX) IV ONE (14:00)
[2018-07-14 14:19] LABS: PHOSPHORUS 4.8 mg/dL (2.5-4.5)
[2018-07-14 14:26] LABS: APPEARANCE,URINE CLEAR; BILIRUBIN,URINE NEGATIVE (NEGATIVE); COLOR,URINE STRAW; GLUCOSE, URINE >=500 mg/dL (NEGATIVE); KETONES,URINE 80 mg/dL (NEGATIVE); LEUKOCYTE ESTERASE,URINE NEGATIVE (NEGATIVE); NITRITE,URINE NEGATIVE (NEGATIVE); PROTEIN,URINE 30 mg/dL (NEGATIVE); URINE SPECIFIC GRAVITY 1.021; UROBILINOGEN,URINE NEGATIVE mg/dL (<2.0)
[2018-07-14] MEDS ORDERED: ACETAMINOPHEN 650 MG SUPP.RECT PR PRN (15:58)
[2018-07-14] MEDS ORDERED: ONDANSETRON HCL INJ/PF 4 MG/2 ML SDV IV PRN (15:58)
[2018-07-14] MEDS ORDERED: NORMAL SALINE 1000 ML 1,000 ML IV PRN (15:58)
[2018-07-14] MEDS ORDERED: DEXTROSE 40% GEL 15 GM TUBE PO PRN ×2 (16:03)
[2018-07-14] MEDS ORDERED: DEXTROSE 50%-WATER 25 GM/50 ML DISP.SYRIN IV PRN ×2 (16:03)
[2018-07-14] MEDS ORDERED: NORMAL SALINE 100 ML with INSULIN REGULAR, HUMAN 100 UNIT IV PRN ×2 (16:03)
[2018-07-14] MEDS ORDERED: GLUCAGON,HUMAN RECOMB 1 MG INJ IM PRN (16:03)
[2018-07-14] MEDS ORDERED: LORAZEPAM INJ 2 MG/1 ML VIAL IV PRN (16:04)
[2018-07-14] MEDS ORDERED: WATER FOR INJECTION,STERILE 1,000 ML with SODIUM BICARBONATE 100 MEQ IV PRN ×2 (16:06)
[2018-07-14] MEDS ORDERED: SODIUM BICARBONATE 8.4% INJ 50 MEQ/50 ML DISP.SYRIN IV ONE ×2 (16:09→18:42)
--- NOTE | 2018-07-14 16:09 | ER Document Report ---
Entered by ZHANE AVILES SCRIBE 07/14/18 [id number] Acting as scribe for:KOFI FRANCISCO MD ED General - General Chief Complaint: Nausea/Vomiting Stated Complaint: VOMITING Time Seen by Provider: 07/14/18 12:21 Mode of Arrival: Wheelchair Information source: Patient Notes: Patient is a 27 year old female with type 1 diabetes presents to the emergency department complaining of abdominal pain, nausea and vomiting onset yesterday. Patient states she presented to the emergency department yesterday complaining of "kidney pain, back pain" and was diagnosed with kidney stones. She states today, the pain had migrated to her abdomen and she persists to have nausea and vomiting. Patient states her back pain is completely resolved. Patient reports not taking her insulin today. Patient's PCP is Dr. Davila. TRAVEL OUTSIDE OF THE [place] IN LAST 30 DAYS: No - Related Data Allergies/Adverse Reactions: aspirin Allergy (Mild, Verified 07/14/18 12:15) Hives ibuprofen Allergy (Mild, Verified 07/14/18 12:15) Hives tramadol Allergy (Mild, Verified 07/14/18 12:15) Hives ketorolac [From Toradol] Allergy (Verified 07/14/18 12:15) Past Medical History - General Information source: Patient - Social History Smoking Status: Current Every Day Smoker Chew tobacco use (# tins/day): No Family History: Reviewed & Not Pertinent, Malignancy, Thyroid Disfunction - Thyroid cancer Patient has suicidal ideation: No Patient has homicidal ideation: No Pulmonary Medical History: Reports: Hx Bronchitis Endocrine Medical History: Reports: Hx Diabetes Mellitus Type 1 Renal/ Medical History: Reports: Hx Kidney Stones, Hx Ovarian Cysts GI Medical History: Reports: Hx Gastroesophageal Reflux Disease Musculoskeletal Medical History: Reports Hx Musculoskeletal Deformity, Reports Hx Musculoskeletal Trauma Psychiatric Medical History: Reports: Hx Anxiety Past Surgical History: Reports: Hx Cholecystectomy, Hx Oral Surgery - Dental araseli rito, Hx Tubal Ligation, Other - Incision and drainage of multiple perirectal abscesses - Immunizations Hx Diphtheria, Pertussis, Tetanus Vaccination: Yes - 2016 Review of Systems - Review of Systems Constitutional: No symptoms reported EENT: No symptoms reported Cardiovascular: No symptoms reported Respiratory: No symptoms reported Gastrointestinal: See HPI, Abdominal pain, Nausea, Vomiting Genitourinary: No symptoms reported Female Genitourinary: No symptoms reported Musculoskeletal: No symptoms reported Skin: No symptoms reported Hematologic/Lymphatic: No symptoms reported Neurological/Psychological: No symptoms reported -: Yes All other systems reviewed and negative Physical Exam - Vital signs Vitals: Pulse Resp BP Pulse Ox 132 H 18 136/93 H 99 07/14/18 12:06 07/14/18 12:06 07/14/18 12:06 07/14/18 12:06 - Notes Notes: GENERAL: Alert, appears uncomfortable, strong ketone odor. HEAD: Normocephalic, atraumatic. EYES: Pupils equal, round, and reactive to light. Extraocular movements intact. ENT: Oral mucosa dry, tongue midline. NECK: Full range of motion. Supple. Trachea midline. LUNGS: Tachypneic. Clear to auscultation bilaterally, no wheezes, rales, or rhonchi. No respiratory distress. HEART: Tachycardic. No murmurs, gallops, or rubs. ABDOMEN: Soft., Diffusely tender to palpation, worse in the lower abdomen. Slightly decreased bowel sounds.. Non-distended. No guarding, rigidity, or rebound. EXTREMITIES: Moves all 4 extremities spontaneously. No edema, radial and dorsalis pedis pulses 2/4 bilaterally. No cyanosis. NEUROLOGICAL: Alert and oriented x3. Normal speech. PSYCH: Normal affect, normal mood. SKIN: Warm, dry, normal turgor. No rashes or lesions noted. Course - Vital Signs Vital signs: Temp Pulse Resp BP Pulse Ox 132 H 18 136/93 H 99 07/14/18 12:06 07/14/18 12:06 07/14/18 12:06 07/14/18 12:06 - Laboratory Result Diagrams: 07/14/18 12:45 07/14/18 12:45 Laboratory results interpreted by me: 07/14/18 07/14/18 07/14/18 12:11 12:45 12:45 Hgb 16.2 H Hct 49.9 H RDW 14.2 H VBG pH VBG pCO2 VBG HCO3 Potassium 5.3 H Carbon Dioxide 5 L* Anion Gap 34 H Glucose 564 H* POC Glucose 458 H* Phosphorus Alkaline Phosphatase 229 H Urine Protein Urine Glucose (UA) Urine Ketones Urine Blood 07/14/18 07/14/18 07/14/18 12:45 12:45 13:44 Hgb Hct RDW VBG pH 7.13 L* VBG pCO2 16.4 L* VBG HCO3 5.3 L Potassium Carbon Dioxide Anion Gap Glucose POC Glucose Phosphorus 4.8 H Alkaline Phosphatase Urine Protein 30 H Urine Glucose (UA) >=500 H Urine Ketones 80 H Urine Blood LARGE H 07/14/18 16:12 Hgb Hct RDW VBG pH VBG pCO2 VBG HCO3 Potassium Carbon Dioxide Anion Gap Glucose POC Glucose 444 H* Phosphorus Alkaline Phosphatase Urine Protein Urine Glucose (UA) Urine Ketones Urine Blood - EKG Interpretation by Me EKG shows normal: Sinus rhythm, [place], Intervals, QRS Complexes, ST-T Waves Rate: Tachycardia - 128 P Waves: LAE When compared to previous EKG there are: No significant change - Consults Dr. Wayne Time consulted: 14:30 Consulted provider: will come to ER Critical Care Note - Critical Care Note Total time excluding time spent on procedures (mins): 35 Discharge - Discharge Clinical Impression: Hyperglycemia, Dehydration, Hyperkalemia, Acidosis Diabetic ketoacidosis associated with type 1 diabetes mellitus Qualifiers: Diabetes mellitus complication detail: without coma Qualified Code(s): E10.10 - Type 1 diabetes mellitus with ketoacidosis without coma Nausea and vomiting Qualifiers: Vomiting type: unspecified Vomiting Intractability: non-intractable Qualified Code(s): R11.2 - Nausea with vomiting, unspecified Condition: Fair Disposition: ADMITTED INPATIENT Admitting Provider: Tone (Hospitalist) Unit Admitted: IMCU Scribe Attestation: 07/14/18 14:02 I personally performed the services described in the documentation, reviewed and edited the documentation which was dictated to the scribe in my presence, and it accurately records my words and actions. I personally performed the services described in the documentation, reviewed and edited the documentation which was dictated to the scribe in my presence, and it accurately records my words and actions.
--- NOTE | 2018-07-14 16:29 | PDOC H&P ---
History of Present Illness Admission Date/PCP: DENVER STAFFORD PA-C Patient complains of: Abdominal pain nausea and vomitings since yesterday History of Present Illness: FRIDA ALMANZA is a 27 year old female history of type 1 diabetes mellitus came to the emergency room with abdominal pain nausea and vomitings of 1 day duration. Patient was here yesterday with complaints of back pain at the time diagnosed with kidney stones. Also found to have an ileus. But the patient has full movement this morning. Back pain resolved as per the patient. Patient states she is unable to keep anything down. Past Medical History Cardiac Medical History: Denies: Congestive Heart Failure, DVT, Myocardial Infarction, Hyperlipidema, Hypertension, Pulmonary Embolism Pulmonary Medical History: Reports: Bronchitis Denies: Asthma, Chronic Obstructive Pulmonary Disease (COPD) Neurological Medical History: Denies: Seizures Endocrine Medical History: Reports: Diabetes Mellitus Type 1 Denies: Hyperthyroidism, Hypothyroidism GI Medical History: Reports: Gastroesophageal Reflux Disease Denies: Cirrhosis, Hepatitis Musculoskeltal Medical History: Denies: Arthritis Skin Medical History: Denies: Eczema, Psoriasis Psychiatric Medical History: Denies: Depression Past Surgical History Past Surgical History: Reports: Cholecystectomy, Tubal Ligation, Other - Incision and drainage of multiple perirectal abscesses Social History Information Source: Patient Smoking Status: Current Every Day Smoker Frequency of Alcohol Use: Social Hx Recreational Drug Use: No Drugs: None Hx Prescription Drug Abuse: No - Advance Directive Resuscitation Status: Full Code Family History Family History: Reviewed & Not Pertinent, Malignancy, Thyroid Disfunction - Thyroid cancer Parental Family History Reviewed: Yes - family history of diabetes mellitus. Children Family History Reviewed: Yes Sibling(s) Family History Reviewed.: Yes Medication/Allergy Allergies/Adverse Reactions: aspirin Allergy (Mild, Verified 07/14/18 12:15) Hives ibuprofen Allergy (Mild, Verified 07/14/18 12:15) Hives tramadol Allergy (Mild, Verified 07/14/18 12:15) Hives ketorolac [From Toradol] Allergy (Verified 07/14/18 12:15) Review of Systems Constitutional: ABSENT: fever(s), headache(s) Eyes: ABSENT: visual disturbances Ears: ABSENT: hearing changes Nose, Mouth, and Throat: ABSENT: sore throat Cardiovascular: ABSENT: chest pain, dyspnea on exertion, edema, orthropnea, palpitations Gastrointestinal: PRESENT: diarrhea, nausea, vomiting Genitourinary: ABSENT: dysuria, hematuria Neurological: ABSENT: abnormal gait, abnormal speech, confusion, dizziness, focal weakness, syncope Psychiatric: PRESENT: anxiety Physical Exam Vital Signs: Temp Pulse Resp BP Pulse Ox 132 H 18 136/93 H 99 07/14/18 12:06 07/14/18 12:06 07/14/18 12:06 07/14/18 12:06 Intake & Output 07/13/18 07/14/18 07/15/18 06:59 06:59 06:59 Intake Total 1000 Balance 1000 Weight 75.296 kg General appearance: PRESENT: other - Moderate distress Head exam: PRESENT: atraumatic Eye exam: PRESENT: PERRLA Mouth exam: PRESENT: dry mucosa Neck exam: ABSENT: carotid bruit, JVD, lymphadenopathy, thyromegaly Respiratory exam: PRESENT: decreased breath sounds Cardiovascular exam: PRESENT: tachycardia GI/Abdominal exam: PRESENT: normal bowel sounds, soft. ABSENT: distended, guarding, mass, organolmegaly, rebound, tenderness Rectal exam: PRESENT: deferred Extremities exam: PRESENT: full ROM. ABSENT: calf tenderness, clubbing, pedal edema Neurological exam: PRESENT: alert, awake, oriented to person, oriented to place, oriented to time, oriented to situation, CN II-XII grossly intact. ABSENT: motor sensory deficit Psychiatric exam: PRESENT: agitated Results Laboratory Results: 07/14/18 12:45 07/14/18 12:45 07/14/18 07/14/18 07/14/18 12:45 12:45 12:45 WBC 8.4 RBC 5.13 Hgb 16.2 H Hct 49.9 H MCV 97 D MCH 31.5 MCHC 32.4 RDW 14.2 H Plt Count 353 Seg Neutrophils % 75.7 Lymphocytes % 19.2 Monocytes % 4.0 Eosinophils % 0.7 Basophils % 0.4 Absolute Neutrophils 6.4 Absolute Lymphocytes 1.6 Absolute Monocytes 0.3 Absolute Eosinophils 0.1 Absolute Basophils 0.0 VBG pH 7.13 L* VBG pCO2 16.4 L* VBG HCO3 5.3 L VBG Base Excess -21.4 Sodium 140.7 Potassium 5.3 H Chloride 102 Carbon Dioxide 5 L* Anion Gap 34 H BUN 9 Creatinine 0.73 Est GFR ( Amer) > 60 Est GFR (Non-Af Amer) > 60 Glucose 564 H* Calcium 9.3 Phosphorus Magnesium Total Bilirubin 0.3 AST 35 ALT 48 Alkaline Phosphatase 229 H Total Protein 7.5 Albumin 4.6 Urine Color Urine Appearance Urine pH Ur Specific Fay Urine Protein Urine Glucose (UA) Urine Ketones Urine Blood Urine Nitrite Ur Leukocyte Esterase Urine WBC (Auto) Urine RBC (Auto) 07/14/18 07/14/18 12:45 13:44 WBC RBC Hgb Hct MCV MCH MCHC RDW Plt Count Seg Neutrophils % Lymphocytes % Monocytes % Eosinophils % Basophils % Absolute Neutrophils Absolute Lymphocytes Absolute Monocytes Absolute Eosinophils Absolute Basophils VBG pH VBG pCO2 VBG HCO3 VBG Base Excess Sodium Potassium Chloride Carbon Dioxide Anion Gap BUN Creatinine Est GFR ( Amer) Est GFR (Non-Af Amer) Glucose Calcium Phosphorus 4.8 H Magnesium 2.0 Total Bilirubin AST ALT Alkaline Phosphatase Total Protein Albumin Urine Color STRAW Urine Appearance CLEAR Urine pH 5.0 Ur Specific Fay 1.021 Urine Protein 30 H Urine Glucose (UA) >=500 H Urine Ketones 80 H Urine Blood LARGE H Urine Nitrite NEGATIVE Ur Leukocyte Esterase NEGATIVE Urine WBC (Auto) 1 Urine RBC (Auto) 1 Assessment and Plan - Diagnosis (1) Diabetic ketoacidosis associated with type 1 diabetes mellitus Qualifiers: Diabetes mellitus complication detail: without coma Qualified Code(s): E10.10 - Type 1 diabetes mellitus with ketoacidosis without coma Is this a current diagnosis for this admission?: Yes Plan: 07/14/2018 patient is going to be admitted to [facility] for DKA. Patient is going to be n.p.o. started on IV fluids normal saline 250 cc/h. Also started on insulin drip presently on 4 units of insulin per hour. GI prophylaxis and DVT prophylaxis implemented. Started on anxiety medication at one 1 mg IV every 6 as needed and IV morphine 1 mg every 6 PRN for pain. KUB was requested. ABG was requested for this evening repeat chemistry was requested for this evening. Patient was placed on oxygen 2 L nasal cannula. Sodium bicarb 100 mg IV push. And also to start on sodium bicarb drip. ABG shows pH of 7.13 PCO2 16.4, bicarb is 5.3. Patient is acidotic. Analysis shows glucose of 500 ketones 80 blood is large. Latest blood sugar in the ER is 564. Reconsult is going to be requested. (2) Hyperkalemia Is this a current diagnosis for this admission?: Yes Plan: 07/14/2018-serum potassium is 5.3 due to DKA. With IV fluids, sodium bicarb drip, insulin drip hopefully the serum potassium levels will be corrected by the evening. (3) Nausea and vomiting Qualifiers: Vomiting type: unspecified Vomiting Intractability: non-intractable Qualified Code(s): R11.2 - Nausea with vomiting, unspecified Is this a current diagnosis for this admission?: Yes Plan: 07/14/2018-patient came in with nausea and vomiting's unable to keep anything down most likely secondary to diabetic gastroparesis sec to DKA. (4) Tobacco dependency Is this a current diagnosis for this admission?: Yes Plan: 07/14/2018-patient has history of smoking. Smokes more than 1 pack/day. Smoking counseling was provided. To start on nicotine patch 21 mg daily. - Time Time Spent with patient: 35 or more minutes Smoking Cessation Education: over 10 minutes Medications reviewed and adjusted accordingly: Yes Anticipated discharge: Home
--- NOTE | 2018-07-14 17:12 | RADIOLOGY REPORT (SQ) ---
EXAM DESCRIPTION: KUB/ABDOMEN (SINGLE VIEW) COMPLETED DATE/TIME: 07/14/2018 4:56 pm REASON FOR STUDY: ileus COMPARISON: None. NUMBER OF VIEWS: One view. TECHNIQUE: Supine radiographic image of the abdomen acquired. LIMITATIONS: None. FINDINGS: BOWEL GAS PATTERN: Normal bowel gas pattern. No dilated loops. CALCIFICATIONS: No suspicious calcifications. SOFT TISSUES: No gross mass or suggestion of organomegaly. HARDWARE: None in the abdomen. BONES: No acute fracture. No worrisome bone lesions. OTHER: No other significant finding. IMPRESSION: NO RADIOGRAPHIC EVIDENCE FOR ACUTE ABDOMINAL DISEASE. TECHNICAL DOCUMENTATION: JOB ID: [id number] [employer]- All Rights Reserved Reading location - IP/workstation name: [email or web address]
[2018-07-14] MEDS ORDERED: NICOTINE 21 MG/24 HR PATCH.TD24 TD ONE (17:30)
[2018-07-14] MEDS: PANTOPRAZOLE SODIUM 40 MG VIAL IV SCH (17:51)
[2018-07-14] MEDS: ENOXAPARIN SODIUM INJ 40 MG/0.4 ML DISP.SYRIN SUBCUT SCH ×2 (17:51→17:55)
[2018-07-14 18:17] LABS: URINE AMPHETAMINES SCREEN NEGATIVE; URINE BARBITURATES SCREEN NEGATIVE; URINE BENZODIAZEPINES SCREEN NEGATIVE; URINE COCAINE SCREEN NEGATIVE; URINE MARIJUANA (THC) SCREEN NEGATIVE; URINE METHADONE SCREEN NEGATIVE; URINE PHENCYCLIDINE SCREEN NEGATIVE
[2018-07-14 18:22] LABS: ARTERIAL BLOOD BASE EXCESS -22.4 mmol/L; ARTERIAL BLOOD H2CO3 0.42 mmol/L (1.05-1.35); ARTERIAL BLOOD HCO3 4.5 mmol/L (20-24); ARTERIAL BLOOD O2 SATURATION 97.7 % (94-98); ARTERIAL BLOOD PO2 130.1 mmHg (80-100); ARTERIAL BLOOD TOTAL CO2 4.9 mmol/L (21-25)
[2018-07-14 18:24] LABS: ARTERIAL BLOOD FIO2 ROOM AIR; ARTERIAL BLOOD PH 7.12 (7.35-7.45)
[2018-07-14] MEDS ORDERED: SODIUM BICARBONATE 8.4% INJ 50 MEQ/50 ML DISP.SYRIN ONE (18:45)
[2018-07-14] MEDS: MORPHINE SULFATE 10 MG/ML INJ IV PRN (18:46)
[2018-07-14 18:51] LABS: ALANINE AMINOTRANSFERASE 40 U/L (9-52); ALBUMIN 4.3 g/dL (3.5-5.0); ALKALINE PHOSPHATASE 210 U/L (38-126); ASPARTATE AMINO TRANSFERASE 35 U/L (14-36); BILIRUBIN,DIRECT 0.4 mg/dL (0.0-0.4); BILIRUBIN,TOTAL 0.4 mg/dL (0.2-1.3); BLOOD UREA NITROGEN 9 mg/dL (7-20); CALCIUM 8.4 mg/dL (8.4-10.2); CHLORIDE 113 mmol/L (98-107); GLUCOSE 367 mg/dL (75-110); POTASSIUM 5.4 mmol/L (3.6-5.0); TOTAL PROTEIN 7.1 g/dL (6.3-8.2)
[2018-07-14 18:58] LABS: CREATINE KINASE MB 0.25 ng/mL (<4.55)
[2018-07-14 19:06] LABS: TROPONIN I < 0.012 ng/mL
[2018-07-14 19:13] LABS: SODIUM 145.9 mmol/L (137-145)
[2018-07-14 19:15] LABS: CARBON DIOXIDE < 5 mmol/L (22-30)
[2018-07-14] MEDS ORDERED: 1/2 NORMAL SALINE IV ONE (19:40)
--- NOTE | 2018-07-14 22:33 | EKG REPORT ---
SEVERITY:- ABNORMAL ECG - SINUS TACHYCARDIA FARHAT, CONSIDER BIATRIAL ABNORMALITIES : Confirmed by: Lakshmi Dallas MD 14-Jul-2018 22:32:35
[2018-07-14 23:03] LABS: ALANINE AMINOTRANSFERASE 44 U/L (9-52); ALBUMIN 3.4 g/dL (3.5-5.0); ALKALINE PHOSPHATASE 157 U/L (38-126); ANION GAP 16 (5-19); ASPARTATE AMINO TRANSFERASE 31 U/L (14-36); BILIRUBIN,DIRECT 0.4 mg/dL (0.0-0.4); BILIRUBIN,TOTAL 0.4 mg/dL (0.2-1.3); BLOOD UREA NITROGEN 9 mg/dL (7-20); CALCIUM 7.9 mg/dL (8.4-10.2); CARBON DIOXIDE 14 mmol/L (22-30); CHLORIDE 109 mmol/L (98-107); GLUCOSE 125 mg/dL (75-110); SODIUM 139.4 mmol/L (137-145); TOTAL PROTEIN 5.8 g/dL (6.3-8.2)
[2018-07-14 23:16] LABS: POTASSIUM 4.2 mmol/L (3.6-5.0)
[2018-07-14] MEDS ORDERED: POTASSI CL 20 MEQ/D5-1/2NS 1L 1,000 ML IV ONE (23:31)
[2018-07-14] MEDS: POTASSI CL 20 MEQ/D5-1/2NS 1L 1000 ML IV PRN (23:33)
[2018-07-15 00:26] LABS: CREATINE KINASE MB 0.23 ng/mL (<4.55)
[2018-07-15 00:30] LABS: TROPONIN I < 0.012 ng/mL
[2018-07-15] MEDS: MORPHINE SULFATE 10 MG/ML INJ IV PRN ×2 (02:18→08:59)
[2018-07-15] MEDS: POTASSI CL 20 MEQ/D5-1/2NS 1L 1000 ML IV PRN (04:53)
[2018-07-15] MEDS: PANTOPRAZOLE SODIUM 40 MG VIAL IV SCH ×2 (05:18→18:02)
[2018-07-15 06:02] LABS: ARTERIAL BLOOD BASE EXCESS -5.2 mmol/L; ARTERIAL BLOOD H2CO3 1.06 mmol/L (1.05-1.35); ARTERIAL BLOOD HCO3 19.4 mmol/L (20-24); ARTERIAL BLOOD O2 SATURATION 96.7 % (94-98); ARTERIAL BLOOD PCO2 35.2 mmHg (35-45); ARTERIAL BLOOD PH 7.36 (7.35-7.45); ARTERIAL BLOOD PO2 90.5 mmHg (80-100); ARTERIAL BLOOD TOTAL CO2 20.5 mmol/L (21-25)
[2018-07-15 06:06] LABS: ARTERIAL BLOOD FIO2 21%
[2018-07-15 06:29] LABS: ABSOLUTE EOSINOPHILS # (AUTO) 0.1 10^3/uL (0.0-0.6); ABSOLUTE LYMPHOCYTES (AUTO) 2.1 10^3/uL (0.5-4.7); ABSOLUTE MONOCYTES (AUTO) 0.6 10^3/uL (0.1-1.4); ABSOLUTE NEUT (AUTO) 3.6 10^3/uL (1.7-8.2); BASOPHILS % (AUTO) 0.6 % (0-2); EOSINOPHILS % (AUTO) 0.9 % (0-6); HEMATOCRIT 37.3 % (36.0-47.0); LYMPHOCYTES % (AUTO) 32.8 % (13-45); MEAN CORPUSCULAR HEMOGLOBIN 31.4 pg (27.0-33.4); MEAN CORPUSCULAR HGB CONC 34.3 g/dL (32.0-36.0); MONOCYTES % (AUTO) 9.6 % (3-13); PLATELET COUNT 247 10^3/uL (150-450); RED BLOOD COUNT 4.08 10^6/uL (3.72-5.28); RED CELL DISTRIBUTION WIDTH 13.4 % (11.5-14.0); SEGMENTED NEUTROPHILS % (AUTO) 56.1 % (42-78); TOTAL CELLS COUNTED % (AUTO) 100 %; WHITE BLOOD COUNT 6.4 10^3/uL (4.0-10.5)
[2018-07-15 06:35] LABS: HEMOGLOBIN 12.8 g/dL (12.0-15.5)
[2018-07-15 06:36] LABS: MEAN CORPUSCULAR VOLUME 92 fl (80-97)
[2018-07-15 06:46] LABS: ALANINE AMINOTRANSFERASE 56 U/L (9-52); ALBUMIN 2.9 g/dL (3.5-5.0); ALKALINE PHOSPHATASE 167 U/L (38-126); ANION GAP 10 (5-19); ASPARTATE AMINO TRANSFERASE 243 U/L (14-36); BILIRUBIN,DIRECT 0.5 mg/dL (0.0-0.4); BILIRUBIN,TOTAL 0.6 mg/dL (0.2-1.3); BLOOD UREA NITROGEN 8 mg/dL (7-20); CALCIUM 7.7 mg/dL (8.4-10.2); CARBON DIOXIDE 19 mmol/L (22-30); CHLORIDE 110 mmol/L (98-107); CHOLESTEROL 156.75 mg/dL (0-200); CREATINE KINASE 27 U/L (30-135); GLUCOSE 132 mg/dL (75-110); POTASSIUM 3.8 mmol/L (3.6-5.0); SODIUM 139.1 mmol/L (137-145); TOTAL PROTEIN 5.3 g/dL (6.3-8.2); TRIGLYCERIDES 148 mg/dL (<150)
[2018-07-15 06:57] LABS: DIRECT LDL 81 mg/dL (<100)
[2018-07-15 06:59] LABS: CREATINE KINASE MB < 0.22 ng/mL (<4.55); TROPONIN I < 0.012 ng/mL
[2018-07-15] MEDS ORDERED: INSULIN GLARGINE,HUM.REC.ANLOG 1,000 UNIT/10 ML VIAL SUBCUT SCH (10:00)
[2018-07-15] MEDS: ENOXAPARIN SODIUM INJ 40 MG/0.4 ML DISP.SYRIN SUBCUT SCH (10:55)
[2018-07-15] MEDS ORDERED: NORMAL SALINE 1000 ML 1,000 ML IV PRN (11:08)
[2018-07-15] MEDS: INSULIN LISPRO 100 UNIT/ML 3 ML VIAL SUBCUT SCH ×2 (12:23→18:04)
[2018-07-15] MEDS: OXYCODONE-ACETAMINOPHEN 5-325 MG TABLET PO PRN ×2 (12:24→18:06)
[2018-07-15 13:36] LABS: FREE T3 3.36 pg/mL (2.77-5.27); FREE T4 (FREE THYROXINE) 1.3 ng/dL (0.78-2.19)
[2018-07-15 14:42] VITALS: BP 101/60
--- NOTE | 2018-07-15 16:00 | PDOC PROGRESS REPORT ---
Subjective Progress Note for:: 07/15/18 Subjective:: FRIDA ALMANZA is a 27 year old female history of type 1 diabetes mellitus came to the emergency room with abdominal pain nausea and vomitings of 1 day duration and was admitted 07/14/2018 for DKA. Patient is seen on morning rounds. She was found resting in bed comfortably on room air. She is pleased to report that she was able to tolerate a clear liquid diet for breakfast and is requesting to have her diet advanced. She currently remains on IV fluids and an insulin drip. We discussed her medication regimen at home; she utilizes Novolin R 10 units with meals and sliding scale with meals and at bedtime. She has never used 70/30 and admits that her dietary habits fluctuate significantly; therefore I have reservations about starting this medication although she would clearly benefit from long-acting insulin. She currently purchases [id number] insulin at [facility] due to lack of insurance cost. We discussed the reload transition to care program and their ability to provide assistance in obtaining medication insurance; she is agreeable to meetin g with her pharmacist to discuss alternate insulin regimens that may be more affordable. She also reports right flank pain which she attributed to kidney stones. She requests for medication alternative to morphine. Otherwise, she denies fever, chills, chest pain, palpitations, dyspnea, abdominal pain, nausea vomiting or diarrhea. She has no other questions or concerns. No concerns per nursing. Reason For Visit: DKA Physical Exam Vital Signs: Temp Pulse Resp BP Pulse Ox 98.2 F 83 18 101/60 100 07/15/18 12:23 07/15/18 12:23 07/15/18 12:23 07/15/18 12:23 07/15/18 12:23 Intake & Output 07/14/18 07/15/18 07/16/18 06:59 06:59 06:59 Intake Total 3806 1013 Output Total 1500 Balance 2306 1013 Weight 71.4 kg General appearance: PRESENT: no acute distress, cooperative, disheveled, well- developed, well-nourished Head exam: PRESENT: atraumatic, normocephalic Eye exam: PRESENT: conjunctiva pink, EOMI, PERRLA. ABSENT: scleral icterus Ear exam: PRESENT: normal external ear exam Mouth exam: PRESENT: moist, tongue midline Teeth exam: PRESENT: poor dentation Neck exam: ABSENT: carotid bruit, JVD, lymphadenopathy, thyromegaly Respiratory exam: PRESENT: clear to auscultation adriel, symmetrical, unlabored. ABSENT: rales, rhonchi, wheezes Cardiovascular exam: PRESENT: RRR, +S1, +S2, tachycardia. ABSENT: diastolic murmur, rubs, systolic murmur Pulses: PRESENT: normal dorsalis pedis pul Vascular exam: PRESENT: normal capillary refill GI/Abdominal exam: PRESENT: normal bowel sounds, soft. ABSENT: distended, guarding, mass, organolmegaly, rebound, tenderness Rectal exam: PRESENT: deferred Extremities exam: PRESENT: full ROM. ABSENT: calf tenderness, clubbing, pedal edema Neurological exam: PRESENT: alert, awake, oriented to person, oriented to place, oriented to time, oriented to situation, CN II-XII grossly intact. ABSENT: motor sensory deficit Psychiatric exam: PRESENT: appropriate affect, normal mood. ABSENT: homicidal ideation, suicidal ideation Skin exam: PRESENT: dry, intact, warm. ABSENT: cyanosis, rash Results Laboratory Results: 07/15/18 05:27 07/15/18 05:27 07/14/18 07/14/18 07/14/18 18:06 18:08 22:29 WBC RBC Hgb Hct MCV MCH MCHC RDW Plt Count Seg Neutrophils % Lymphocytes % Monocytes % Eosinophils % Basophils % Absolute Neutrophils Absolute Lymphocytes Absolute Monocytes Absolute Eosinophils Absolute Basophils Carbonic Acid 0.42 L HCO3/H2CO3 Ratio 10:1 ABG pH 7.12 L* ABG pCO2 14.0 L* ABG pO2 130.1 H ABG HCO3 4.5 L ABG O2 Saturation 97.7 ABG Base Excess -22.4 FiO2 ROOM AIR Sodium 145.9 H 139.4 Potassium 5.4 H 4.2 D Chloride 113 H 109 H Carbon Dioxide < 5 L* 14 L Anion Gap Not Reportable 16 BUN 9 9 Creatinine 0.65 0.45 L Est GFR ( Amer) > 60 > 60 Est GFR (Non-Af Amer) > 60 > 60 Glucose 367 H 125 H Calcium 8.4 7.9 L Magnesium Total Bilirubin 0.4 0.4 AST 35 31 ALT 40 44 Alkaline Phosphatase 210 H 157 H Total Protein 7.1 5.8 L Albumin 4.3 3.4 L Triglycerides Cholesterol LDL Cholesterol Direct VLDL Cholesterol HDL Cholesterol TSH Free T4 Free T3 pg/mL 07/15/18 07/15/18 07/15/18 05:27 05:27 05:27 WBC 6.4 RBC 4.08 Hgb 12.8 D Hct 37.3 MCV 92 D MCH 31.4 MCHC 34.3 RDW 13.4 Plt Count 247 Seg Neutrophils % 56.1 Lymphocytes % 32.8 Monocytes % 9.6 Eosinophils % 0.9 Basophils % 0.6 Absolute Neutrophils 3.6 Absolute Lymphocytes 2.1 Absolute Monocytes 0.6 Absolute Eosinophils 0.1 Absolute Basophils 0.0 Carbonic Acid HCO3/H2CO3 Ratio ABG pH ABG pCO2 ABG pO2 ABG HCO3 ABG O2 Saturation ABG Base Excess FiO2 Sodium 139.1 Potassium 3.8 Chloride 110 H Carbon Dioxide 19 L Anion Gap 10 BUN 8 Creatinine 0.38 L Est GFR ( Amer) > 60 Est GFR (Non-Af Amer) > 60 Glucose 132 H Calcium 7.7 L Magnesium 1.7 Total Bilirubin 0.6 AST 243 H ALT 56 H Alkaline Phosphatase 167 H Total Protein 5.3 L Albumin 2.9 L Triglycerides 148 Cholesterol 156.75 LDL Cholesterol Direct 81 VLDL Cholesterol 30.0 HDL Cholesterol 62 TSH 0.38 L Free T4 Free T3 pg/mL 07/15/18 07/15/18 05:27 05:44 WBC RBC Hgb Hct MCV MCH MCHC RDW Plt Count Seg Neutrophils % Lymphocytes % Monocytes % Eosinophils % Basophils % Absolute Neutrophils Absolute Lymphocytes Absolute Monocytes Absolute Eosinophils Absolute Basophils Carbonic Acid 1.06 HCO3/H2CO3 Ratio 18:1 ABG pH 7.36 ABG pCO2 35.2 ABG pO2 90.5 ABG HCO3 19.4 L ABG O2 Saturation 96.7 ABG Base Excess -5.2 FiO2 21% Sodium Potassium Chloride Carbon Dioxide Anion Gap BUN Creatinine Est GFR ( Amer) Est GFR (Non-Af Amer) Glucose Calcium Magnesium Total Bilirubin AST ALT Alkaline Phosphatase Total Protein Albumin Triglycerides Cholesterol LDL Cholesterol Direct VLDL Cholesterol HDL Cholesterol TSH Free T4 1.30 Free T3 pg/mL 3.36 07/14/18 07/14/18 07/14/18 18:06 18:06 22:29 Creatine Kinase 44 40 CK-MB (CK-2) 0.25 Troponin I < 0.012 07/14/18 07/15/18 07/15/18 23:27 05:27 05:27 Creatine Kinase 27 L CK-MB (CK-2) 0.23 < 0.22 Troponin I < 0.012 < 0.012 Impressions: KUB X-Ray 07/14/18 00:00 IMPRESSION: NO RADIOGRAPHIC EVIDENCE FOR ACUTE ABDOMINAL DISEASE. Assessment and Plan - Diagnosis (1) Diabetic ketoacidosis associated with type 1 diabetes mellitus Qualifiers: Diabetes mellitus complication detail: without coma Qualified Code(s): E10.10 - Type 1 diabetes mellitus with ketoacidosis without coma Is this a current diagnosis for this admission?: Yes Plan: The patient is admitted to [facility] on continuous cardiac telemetry. She was provided DKA standard care set of IV fluids and insulin drip with serial chemistries. This morning she is noted to have a normal CBC, A1c 11.6%, anion gap is closed, bicarb 19, creatinine 0.38, with a glucose of 132 while on D5NS and an insulin gtt. The patient is advanced to a clear liquid diet; advanced as tolerated to consi stent carb. She is provided Lantus 10 units subcu and her insulin drip was discontinued 1 hour later. She is placed on Accu-Cheks before meals and at bedtime with Humalog for sliding scale coverage. The registered dietitian and seasonal recruiter consulted. Discharge planning is consulted. We will transition to wellness program is also consulted; appreciate their assistance in obtaining medication insurance and/or making insulin regiment recommendations for self-pay patient. (2) Hyperkalemia Is this a current diagnosis for this admission?: Yes Plan: Resolved. Secondary to DKA. (3) Nausea and vomiting Qualifiers: Vomiting type: unspecified Vomiting Intractability: non-intractable Qualified Code(s): R11.2 - Nausea with vomiting, unspecified Is this a current diagnosis for this admission?: Yes Plan: Resolved. Secondary to DKA. She was initially placed in n.p.o. status. Now tolerating clear liquid diet. We will continue to advance as tolerated to consistent carb. Continue gentle IV fluid hydration. Antiemetics as needed. (4) Tobacco dependence Is this a current diagnosis for this admission?: Yes Plan: Smoking cessation is encouraged. Nicotine or placement therapies are provided. (5) Renal calculi Is this a current diagnosis for this admission?: Yes Plan: Patient complains of right flank pain. She denies urinary urgency, frequency, dysuria. UA negative for UTI. CT abdomen pelvis (07/11/2018) revealed bilateral nonobstructing renal calculi. Discontinue IV morphine. Provide Percocet every 4 hours as needed. Start Flomax nightly. Continue gentle IV fluids. Antiemetics as needed. - Time Time Spent with patient: 25-34 minutes Medications reviewed and adjusted accordingly: Yes Anticipated discharge: Home Within: within 24 hours
[2018-07-15] MEDS ORDERED: TAMSULOSIN HCL 0.4 MG CAP.SR.24H PO SCH (18:00)
--- NOTE | 2018-07-29 13:29 | Left Against Medical Advice ---
Against Medical Advice Admission Date/Time: 07/14/18 16:21 Primary Care Provider: DENVER STAFFORD PA-C Date of Patient Emigration: 07/15/18 - Diagnosis: (1) Diabetic ketoacidosis associated with type 1 diabetes mellitus Is this a current diagnosis for this admission?: Yes (2) Hyperkalemia Is this a current diagnosis for this admission?: Yes (3) Nausea and vomiting Is this a current diagnosis for this admission?: Yes (4) Tobacco dependence Is this a current diagnosis for this admission?: Yes (5) Renal calculi Is this a current diagnosis for this admission?: Yes - Summary: Summary: Please see Admission and Progress Notes as well. FRIDA ALMANZA is a 27 F, who LEFT AGAINST MEDICAL ADVICE. The Patient was admitted on 07/14/18 16:21 and is treated for DKA with standard care set of aggressive IV fluid resuscitation, insulin drip, serial chemistries, and transition to long-acting and short acting insulin. Her DKA resolved and the patients diet was advanced to consistence carb, which she tolerated well with appropriate glucose control. Patient remained in-house for patient educator, registered dietitian, Realo transitions to wellness, and social contact worker to provide necessary education and to assist with identifying medication assistance/insurance to ensure that she is able to afford/obtain needed insulin. The patient was agreeable to staying; however, I was notified a few hours later that the patient was leaving AGAINST MEDICAL ADVICE due to concerns regarding childcare.
== END 2018-07-15 18:30 | disposition left against medical advice (07) | DRG 638 ==
LOC: ER 11:53 → EH 16:21 → 3W 22:43
PROVIDERS: ADMIT Internal Medicine; ATTEND Internal Medicine
DX: E10.10 Type 1 diabetes mellitus with ketoacidosis without coma (principal); K56.7 Ileus, unspecified; E87.5 Hyperkalemia; K21.9 Gastro-esophageal reflux disease without esophagitis; F17.200 Nicotine dependence, unspecified, uncomplicated; F41.9 Anxiety disorder, unspecified; E86.0 Dehydration; N20.0 Calculus of kidney; Z71.6 Tobacco abuse counseling; Z90.49 Acquired absence of other specified parts of digestive tract; Z88.6 Allergy status to analgesic agent; Z88.8 Allergy status to other drugs, medicaments and biological substances; Z83.3 Family history of diabetes mellitus
CPT/HCPCS: 36415; 36600; 74018; 80053; 80061; 80307; 81001; 81025; 82550; 82553; 82803; 82962; 83036; 83735; 84100; 84439; 84443; 84481; 84484; 85025; 93005; 93010; 96361; 96374; 99291; J1650; J1815; J2060; J2270; J2405; J3480; J3490; J7030; S0164

== ENCOUNTER 2018-08-20 13:39 | Observation (INO) | payer SELFPAY ==
[2018-08-20] MEDS ORDERED: NORMAL SALINE 1000 ML 1,000 ML IV ONE (14:16)
--- NOTE | 2018-08-20 14:20 | ER Document Report ---
ED Medical Screen (RME) - General Chief Complaint: High Blood Sugar Stated Complaint: FLANK PAIN Time Seen by Provider: 08/20/18 14:16 Primary Care Provider: DENVER STAFFORD PA-C [Primary Care Provider] - Follow up as needed Mode of Arrival: Ambulatory Information source: Patient Notes: 27-year-old female presented to ED for elevated blood sugar. She states she is having nausea with emesis x2 today. She states she is constantly thirsty and is going to the bathroom constantly. She is a type I diabetic. She states that her blood sugar read high yesterday and today and she is taking the insulin as prescribed. Her blood sugar is 541 in the emergency room. We will get all of the blood work started start IV fluids and have her seen in the emergency room. I have greeted and performed a rapid initial assessment of this patient. A comprehensive ED assessment and evaluation of the patient, analysis of test results and completion of medical decision making process will be conducted by an additional ED providers. Dictation of this chart was performed using voice recognition software; therefore, there may be some unintended grammatical errors. TRAVEL OUTSIDE OF THE [place] IN LAST 30 DAYS: No - Related Data Allergies/Adverse Reactions: aspirin Allergy (Mild, Verified 08/20/18 13:40) Hives ibuprofen Allergy (Mild, Verified 08/20/18 13:40) Hives tramadol Allergy (Mild, Verified 08/20/18 13:40) Hives ketorolac [From Toradol] Allergy (Verified 08/20/18 13:40) Past Medical History - Social History Family history: Reviewed & Not Pertinent - Past Medical History Cardiac Medical History: Denies: Hx Congestive Heart Failure, Hx DVT, Hx Heart Attack, Hx Hypercholesterolemia, Hx Hypertension, Hx Pulmonary Embolism Pulmonary Medical History: Reports: Hx Bronchitis Denies: Hx Asthma, Hx COPD Neurological Medical History: Denies: Hx Seizures Endocrine Medical History: Reports: Hx Diabetes Mellitus Type 1. Denies: Hx Hyperthyroidism, Hx Hypothyroidism Renal/ Medical History: Reports: Hx Kidney Stones, Hx Ovarian Cysts. Denies: Hx Peritoneal Dialysis GI Medical History: Reports: Hx Gastroesophageal Reflux Disease. Denies: Hx Cirrhosis, Hx Hepatitis Musculoskeltal Medical History: Denies Hx Arthritis, Reports Hx Musculoskeletal Deformity, Reports Hx Musculoskeletal Trauma Skin Medical History: Denies Hx Eczema, Denies Hx Psoriasis Psychiatric Medical History: Reports: Hx Anxiety Denies: Hx Depression Infectious Medical History: Denies: Hx Hepatitis Past Surgical History: Reports: Hx Cholecystectomy, Hx Oral Surgery - Dental surgery, Hx Tubal Ligation, Other - Incision and drainage of multiple perirectal abscesses - Immunizations Hx Diphtheria, Pertussis, Tetanus Vaccination: Yes - 2016 History of Influenza Vaccine for 12/2016 - 05/2017 Season: Refused Physical Exam - Vital signs Vitals: Temp Pulse Resp BP Pulse Ox 97.8 F 124 H 16 135/68 H 97 08/20/18 13:44 08/20/18 13:44 08/20/18 13:44 08/20/18 13:44 08/20/18 13:44 Course - Vital Signs Vital signs: Temp Pulse Resp BP Pulse Ox 97.8 F 124 H 16 135/68 H 97 08/20/18 13:44 08/20/18 13:44 08/20/18 13:44 08/20/18 13:44 08/20/18 13:44 Doctor's Discharge - Discharge Referrals: DENVER STAFFORD PA-C [Primary Care Provider] - Follow up as needed
[2018-08-20] MEDS ORDERED: ONDANSETRON 4 MG TAB.RAPDIS PO ONE (14:21)
[2018-08-20 14:48] LABS: ABSOLUTE BASOPHILS # (AUTO) 0.1 10^3/uL (0.0-0.2); ABSOLUTE EOSINOPHILS # (AUTO) 0.2 10^3/uL (0.0-0.6); ABSOLUTE LYMPHOCYTES (AUTO) 1.8 10^3/uL (0.5-4.7); ABSOLUTE MONOCYTES (AUTO) 0.4 10^3/uL (0.1-1.4); ABSOLUTE NEUT (AUTO) 7.2 10^3/uL (1.7-8.2); EOSINOPHILS % (AUTO) 1.6 % (0-6); HEMATOCRIT 47.8 % (36.0-47.0); HEMOGLOBIN 15.5 g/dL (12.0-15.5); LYMPHOCYTES % (AUTO) 18.4 % (13-45); MEAN CORPUSCULAR HEMOGLOBIN 30.5 pg (27.0-33.4); MEAN CORPUSCULAR HGB CONC 32.4 g/dL (32.0-36.0); MEAN CORPUSCULAR VOLUME 94 fl (80-97); MONOCYTES % (AUTO) 4.5 % (3-13); PLATELET COUNT 352 10^3/uL (150-450); RED BLOOD COUNT 5.08 10^6/uL (3.72-5.28); RED CELL DISTRIBUTION WIDTH 14.1 % (11.5-14.0); SEGMENTED NEUTROPHILS % (AUTO) 74.5 % (42-78); TOTAL CELLS COUNTED % (AUTO) 100 %; WHITE BLOOD COUNT 9.6 10^3/uL (4.0-10.5)
[2018-08-20 15:05] LABS: ALANINE AMINOTRANSFERASE 21 U/L (9-52); ALBUMIN 4.4 g/dL (3.5-5.0); ALKALINE PHOSPHATASE 173 U/L (38-126); ASPARTATE AMINO TRANSFERASE 28 U/L (14-36); BILIRUBIN,DIRECT 0.5 mg/dL (0.0-0.4); BILIRUBIN,TOTAL 0.8 mg/dL (0.2-1.3); BLOOD UREA NITROGEN 11 mg/dL (7-20); CALCIUM 9.1 mg/dL (8.4-10.2); CARBON DIOXIDE 12 mmol/L (22-30); CHLORIDE 94 mmol/L (98-107); CREATINE KINASE 41 U/L (30-135); POTASSIUM 5.4 mmol/L (3.6-5.0); TOTAL PROTEIN 7.2 g/dL (6.3-8.2)
[2018-08-20 15:10] LABS: SODIUM 132.6 mmol/L (137-145)
[2018-08-20 15:11] LABS: ANION GAP 27 (5-19)
[2018-08-20 15:13] LABS: GLUCOSE 578 mg/dL (75-110)
[2018-08-20] MEDS ORDERED: NORMAL SALINE 100 ML with INSULIN REGULAR, HUMAN 100 UNIT IV PRN ×4 (16:54→17:35)
--- NOTE | 2018-08-20 17:03 | ER Document Report ---
ED Blood Sugar Problem - General Chief Complaint: High Blood Sugar Stated Complaint: FLANK PAIN Time Seen by Provider: 08/20/18 14:16 Mode of Arrival: Ambulatory TRAVEL OUTSIDE OF THE [place] IN LAST 30 DAYS: No - HPI Notes: Patient is a 27-year-old female that presents to the emergency department for chief complaint of hyperglycemia and flank pain. Patient is a type I diabetic and states she gets [id number] insulin because of insurance issues. She states she has DKA frequently and feels like she is back in DKA. For the last 3 days she has had nausea and vomiting with poor oral intake. She reports urinary frequency and dysuria. She denies fevers and chills, abdominal pain and diarrhea. Patient denies any associated shortness of breath or chest pain. She also reports a history of kidney stones and states she has had a sharp pain in her right flank for the last 2 to 3 days. Her pain feels similar to previous kidney stone she has had in the past. Past Medical History: Diabetes Past Surgical History: Reviewed in chart Social History: Denies alcohol and tobacco use Family History: Reviewed and noncontributory for presenting illness Allergies: Reviewed, see documented allergy list. REVIEW OF SYSTEMS: CONSTITUTIONAL : No fever No chills No diaphoresis No recent illness EENT: No vision changes No congestion No sore throat CARDIOVASCULAR: No chest pain No palpitations RESPIRATORY: No shortness of breath No cough No difficulty breathing GASTROINTESTINAL: No abdominal pain nausea vomiting No diarrhea GENITOURINARY: dysuria Urinary frequency No hematuria No difficulty urinating MUSCULOSKELETAL: Right flank pain No leg pain No arm pain SKIN: No rashes No lesions LYMPHATIC: No swollen, enlarged glands. NEUROLOGICAL: No lightheadedness No headache No weakness No paresthesias PSYCHIATRIC: No anxiety No depression PHYSICAL EXAMINATION: Vital signs reviewed, nursing noted reviewed. GENERAL: Ill-appearing, well-nourished and in no acute distress. HEAD: Atraumatic, normocephalic. EYES: Eyes appear normal, extraocular movements intact, sclera anicteric, conjunctiva are normal. ENT: nares patent, oropharynx clear without exudates. Dry mucous membranes. NECK: Normal range of motion, supple without lymphadenopathy LUNGS: Breath sounds clear to auscultation bilaterally and equal. No wheezes rales or rhonchi. HEART: Tachycardic rate and regular rhythm without murmurs ABDOMEN: Right CVA tenderness, abdomen soft, nontender, normoactive bowel sounds. No rebound, guarding, or rigidity. No masses appreciated. EXTREMITIES: Nontender, good range of motion, no pitting or edema. NEUROLOGICAL: No focal neurological deficits. Moves all extremities spontaneously Motor and sensory grossly intact on exam. PSYCH: Normal mood, normal affect. SKIN: Warm, Dry, normal turgor, no rashes or lesions noted on exposed skin - Related Data Allergies/Adverse Reactions: aspirin Allergy (Mild, Verified 08/20/18 13:40) Hives ibuprofen Allergy (Mild, Verified 08/20/18 13:40) Hives tramadol Allergy (Mild, Verified 08/20/18 13:40) Hives ketorolac [From Toradol] Allergy (Verified 08/20/18 13:40) Past Medical History - General Information source: Patient - Social History Smoking Status: Current Every Day Smoker Frequency of alcohol use: None Drug Abuse: None Family History: Reviewed & Not Pertinent, Malignancy, Thyroid Disfunction - Thyroid cancer Patient has suicidal ideation: No Patient has homicidal ideation: No - Past Medical History Cardiac Medical History: Denies: Hx Congestive Heart Failure, Hx DVT, Hx Heart Attack, Hx Hypercholesterolemia, Hx Hypertension, Hx Pulmonary Embolism Pulmonary Medical History: Reports: Hx Bronchitis Denies: Hx Asthma, Hx COPD Neurological Medical History: Denies: Hx Seizures Endocrine Medical History: Reports: Hx Diabetes Mellitus Type 1, Hx Diabetes Mellitus Type 2. Denies: Hx Hyperthyroidism, Hx Hypothyroidism Renal/ Medical History: Reports: Hx Kidney Stones, Hx Ovarian Cysts. Denies: Hx Peritoneal Dialysis GI Medical History: Reports: Hx Gastroesophageal Reflux Disease. Denies: Hx C irrhosis, Hx Hepatitis Musculoskeletal Medical History: Denies Hx Arthritis, Reports Hx Musculoskeletal Deformity, Reports Hx Musculoskeletal Trauma Skin Medical History: Denies Hx Eczema, Denies Hx Psoriasis Psychiatric Medical History: Reports: Hx Anxiety Denies: Hx Depression Infectious Medical History: Denies: Hx Hepatitis Past Surgical History: Reports: Hx Cholecystectomy, Hx Oral Surgery - Dental surgery, Hx Tubal Ligation, Other - Incision and drainage of multiple perirectal abscesses - Immunizations Hx Diphtheria, Pertussis, Tetanus Vaccination: Yes - 2015 Physical Exam - Vital signs Vitals: Temp Pulse Resp BP Pulse Ox 97.8 F 124 H 16 135/68 H 97 08/20/18 13:44 08/20/18 13:44 08/20/18 13:44 08/20/18 13:44 08/20/18 13:44 Course - Re-evaluation Re-evalutation: 08/20/18 17:05 Vitals reviewed. Nursing notes reviewed. Patient was ordered IV fluids in triage which did slightly decrease her blood sugar. She has an anion gap of 27 and is acidotic on ABG consistent with acute DKA. Patient will be started on insulin infusion for her DKA and will be admitted to the hospital for further management. She has a slight hyperkalemia at 5.4 which will improve with IV fluids and insulin. CT scan will be obtained to evaluate for underlying ureterolithiasis. Patient has normal renal function. She has no leukocytosis to suggest sepsis. Patients care was discussed with Dr. Andrade who accepts admission to the ICU. Laboratory 08/20/18 08/20/18 08/20/18 14:30 14:30 14:30 WBC 9.6 RBC 5.08 Hgb 15.5 Hct 47.8 H MCV 94 MCH 30.5 MCHC 32.4 RDW 14.1 H Plt Count 352 Seg Neutrophils % 74.5 Lymphocytes % 18.4 Monocytes % 4.5 Eosinophils % 1.6 Basophils % 1.0 Absolute Neutrophils 7.2 Absolute Lymphocytes 1.8 Absolute Monocytes 0.4 Absolute Eosinophils 0.2 Absolute Basophils 0.1 Sodium 132.6 L Potassium 5.4 H Chloride 94 L Carbon Dioxide 12 L Anion Gap 27 H BUN 11 Creatinine 0.65 Est GFR ( Amer) > 60 Est GFR (Non-Af Amer) > 60 Glucose 578 H* POC Glucose Calcium 9.1 Total Bilirubin 0.8 Direct Bilirubin 0.5 H Neonat Total Bilirubin Not Reportable Neonat Direct Bilirubin Not Reportable Neonat Indirect Bili Not Reportable AST 28 ALT 21 Alkaline Phosphatase 173 H Creatine Kinase 41 Total Protein 7.2 Albumin 4.4 Serum HCG, Qual NEGATIVE 08/20/18 16:58 WBC RBC Hgb Hct MCV MCH MCHC RDW Plt Count Seg Neutrophils % Lymphocytes % Monocytes % Eosinophils % Basophils % Absolute Neutrophils Absolute Lymphocytes Absolute Monocytes Absolute Eosinophils Absolute Basophils Sodium Potassium Chloride Carbon Dioxide Anion Gap BUN Creatinine Est GFR ( Amer) Est GFR (Non-Af Amer) Glucose POC Glucose 469 H* Calcium Total Bilirubin Direct Bilirubin Neonat Total Bilirubin Neonat Direct Bilirubin Neonat Indirect Bili AST ALT Alkaline Phosphatase Creatine Kinase Total Protein Albumin Serum HCG, Qual - Vital Signs Vital signs: Temp Pulse Resp BP Pulse Ox 97.8 F 124 H 16 135/68 H 97 08/20/18 13:44 08/20/18 13:44 08/20/18 13:44 08/20/18 13:44 08/20/18 13:44 - Laboratory Result Diagrams: 08/20/18 14:30 08/20/18 14:30 Laboratory results interpreted by me: 08/20/18 08/20/18 08/20/18 14:30 14:30 14:30 Hct 47.8 H RDW 14.1 H Carbonic Acid ABG pH ABG pCO2 ABG pO2 ABG HCO3 ABG Total CO2 Sodium 132.6 L Potassium 5.4 H Chloride 94 L Carbon Dioxide 12 L Anion Gap 27 H Glucose 578 H* POC Glucose Hemoglobin A1c % Direct Bilirubin 0.5 H Alkaline Phosphatase 173 H Urine Glucose (UA) >=500 H Urine Ketones 80 H Urine Blood SMALL H Ur Leukocyte Esterase TRACE H 08/20/18 08/20/18 08/20/18 14:30 16:58 17:05 Hct RDW Carbonic Acid 0.64 L ABG pH 7.20 L* ABG pCO2 21.3 L ABG pO2 103.5 H ABG HCO3 8.1 L ABG Total CO2 8.8 L Sodium Potassium Chloride Carbon Dioxide Anion Gap Glucose POC Glucose 469 H* Hemoglobin A1c % 11.3 H Direct Bilirubin Alkaline Phosphatase Urine Glucose (UA) Urine Ketones Urine Blood Ur Leukocyte Esterase - EKG Interpretation by Me Additional EKG results interpreted by me: 08/20/18 17:22 Interpreted by myself 1712: Normal sinus rhythm, rate 92, normal axis, hyperacute T waves V2 through V4, no STEMI Critical Care Note - Critical Care Note Total time excluding time spent on procedures (mins): 35 Comments: Critical care time 35 exclusive from separate billable procedures for a patient requiring complex medical decision making, and high potential for clinical deterioration. Time spent obtaining history from patient or surrogate, discussions with consultants, development of treatment plan with patient or surrogate, evaluation of patient's response to treatment, examination of patient, ordering and performing treatments and interventions, ordering and review of laboratory studies, re-evaluation of patient's condition, ordering and review of radiographic studies and review of old charts Discharge - Discharge Clinical Impression: Hyperkalemia DKA (diabetic ketoacidoses) Qualifiers: Diabetes mellitus type: type 1 Diabetes mellitus complication detail: without coma Qualified Code(s): E10.10 - Type 1 diabetes mellitus with ketoacidosis without coma Condition: Serious Disposition: ADMITTED INPATIENT Admitting Provider: Raymond (Hospitalist) Unit Admitted: ICU
[2018-08-20 17:11] LABS: APPEARANCE,URINE SLIGHTLY-CLOUDY; BILIRUBIN,URINE NEGATIVE (NEGATIVE); COLOR,URINE STRAW; GLUCOSE, URINE >=500 mg/dL (NEGATIVE); KETONES,URINE 80 mg/dL (NEGATIVE); LEUKOCYTE ESTERASE,URINE TRACE (NEGATIVE); NITRITE,URINE NEGATIVE (NEGATIVE); PROTEIN,URINE NEGATIVE (NEGATIVE); URINE SPECIFIC GRAVITY 1.024; UROBILINOGEN,URINE NEGATIVE mg/dL (<2.0)
[2018-08-20 17:23] LABS: ARTERIAL BLOOD BASE EXCESS -17.8 mmol/L; ARTERIAL BLOOD H2CO3 0.64 mmol/L (1.05-1.35); ARTERIAL BLOOD HCO3 8.1 mmol/L (20-24); ARTERIAL BLOOD O2 SATURATION 96.7 % (94-98); ARTERIAL BLOOD PCO2 21.3 mmHg (35-45); ARTERIAL BLOOD PO2 103.5 mmHg (80-100); ARTERIAL BLOOD TOTAL CO2 8.8 mmol/L (21-25)
[2018-08-20] MEDS ORDERED: IPRATROPIUM/ALBUTEROL 0.5-2.5 MG/3 ML AMPUL NEB PRN (17:27)
[2018-08-20] MEDS ORDERED: ONDANSETRON HCL INJ/PF 4 MG/2 ML SDV IV PRN (17:27)
[2018-08-20] MEDS ORDERED: NORMAL SALINE 1000 ML 1,000 ML IV PRN ×2 (17:27→21:43)
[2018-08-20] MEDS ORDERED: PROMETHAZINE HCL INJ 25 MG/1 ML VIAL IV PRN (17:27)
[2018-08-20] MEDS ORDERED: ACETAMINOPHEN 325 MG TABLET PO PRN (17:27)
[2018-08-20 17:35] LABS: ARTERIAL BLOOD FIO2 RA
[2018-08-20] MEDS ORDERED: DEXTROSE 40% GEL 15 GM TUBE PO PRN ×2 (17:35)
[2018-08-20] MEDS ORDERED: DEXTROSE 50%-WATER 25 GM/50 ML DISP.SYRIN IV PRN ×2 (17:35)
[2018-08-20] MEDS ORDERED: GLUCAGON,HUMAN RECOMB 1 MG INJ IM PRN (17:35)
[2018-08-20] MEDS ORDERED: SODIUM BICARBONATE 8.4% INJ 50 MEQ/50 ML DISP.SYRIN IV SCH (18:00)
[2018-08-20] MEDS: OXYCODONE-ACETAMINOPHEN 5-325 MG TABLET PO PRN (18:30)
--- NOTE | 2018-08-20 18:36 | PDOC H&P ---
History of Present Illness Admission Date/PCP: 08/20/18 17:28 DENVER STAFFORD PA-C History of Present Illness: FRIDA ALMANZA is a 27 year old female past medical history of type 1 diabetes with multiple DKA admissions, right-sided nephrolithiasis, hypertension, presented to ED complaining of having high blood glucose levels. Patient had noticed that her blood pressure has been consistently high for the last 3 days, she is using ijpa-tob-tuzzuen Novolin to manage her diabetes becaus e she has lost her insurance and could not afford other forms of insulin. He is also complaining of nausea and nonbloody nonbilious vomiting for the last 2 days, and right-sided flank pain, 8/10, constant, worse with movement, better with rest, nonradiating, she endorses polyuria but denies any dysuria, polyuria, fever, chills, diarrhea, constipation. In ED she was found to be tachycardic, initial blood glucose level 578, anion gap 27, A1c 11.3, ABG positive for pH of 7.20, PCO2 21.3, PO2 103.5, bicarb 8.1. She was started on insulin drip, normal saline and hospital was consulted for admission. Past Medical History Cardiac Medical History: Denies: Congestive Heart Failure, DVT, Myocardial Infarction, Hyperlipidema, Hypertension, Pulmonary Embolism Pulmonary Medical History: Reports: Bronchitis Denies: Asthma, Chronic Obstructive Pulmonary Disease (COPD) Neurological Medical History: Denies: Seizures Endocrine Medical History: Reports: Diabetes Mellitus Type 1, Diabetes Mellitus Type 2 Denies: Hyperthyroidism, Hypothyroidism GI Medical History: Reports: Gastroesophageal Reflux Disease Denies: Cirrhosis, Hepatitis Musculoskeltal Medical History: Denies: Arthritis Skin Medical History: Denies: Eczema, Psoriasis Psychiatric Medical History: Denies: Depression Past Surgical History Past Surgical History: Reports: Cholecystectomy, Tubal Ligation, Other - Incision and drainage of multiple perirectal abscesses Social History Smoking Status: Current Every Day Smoker Frequency of Alcohol Use: None Hx Recreational Drug Use: No Drugs: None Hx Prescription Drug Abuse: No Family History Family History: Reviewed & Not Pertinent, Malignancy, Thyroid Disfunction - Thyroid cancer Parental Family History Reviewed: Yes Children Family History Reviewed: Yes Sibling(s) Family History Reviewed.: Yes Medication/Allergy Allergies/Adverse Reactions: aspirin Allergy (Mild, Verified 08/20/18 13:40) Hives ibuprofen Allergy (Mild, Verified 08/20/18 13:40) Hives tramadol Allergy (Mild, Verified 08/20/18 13:40) Hives ketorolac [From Toradol] Allergy (Verified 08/20/18 13:40) Review of Systems Review of Systems: as per hpi Physical Exam Vital Signs: Temp Pulse Resp BP Pulse Ox 97.8 F 124 H 16 135/68 H 97 08/20/18 13:44 08/20/18 13:44 08/20/18 13:44 08/20/18 13:44 08/20/18 13:44 Intake & Output 08/19/18 08/20/18 08/21/18 06:59 06:59 06:59 Intake Total 1000 Balance 1000 Weight 74 kg General appearance: PRESENT: no acute distress, well-developed, well-nourished Head exam: PRESENT: atraumatic, normocephalic Respiratory exam: PRESENT: clear to auscultation adriel. ABSENT: rales, rhonchi, wheezes Cardiovascular exam: PRESENT: RRR, tachycardia. ABSENT: diastolic murmur, rubs, systolic murmur GI/Abdominal exam: PRESENT: normal bowel sounds, soft, tenderness - Rt Flank pain. ABSENT: distended, guarding, mass, organolmegaly, rebound Extremities exam: PRESENT: full ROM. ABSENT: calf tenderness, clubbing, pedal edema Neurological exam: PRESENT: alert, awake, oriented to person, oriented to place, oriented to time, oriented to situation, CN II-XII grossly intact. ABSENT: motor sensory deficit Results Laboratory Results: 08/20/18 14:30 08/20/18 14:30 08/20/18 08/20/18 08/20/18 14:30 14:30 14:30 WBC 9.6 RBC 5.08 Hgb 15.5 Hct 47.8 H MCV 94 MCH 30.5 MCHC 32.4 RDW 14.1 H Plt Count 352 Seg Neutrophils % 74.5 Lymphocytes % 18.4 Monocytes % 4.5 Eosinophils % 1.6 Basophils % 1.0 Absolute Neutrophils 7.2 Absolute Lymphocytes 1.8 Absolute Monocytes 0.4 Absolute Eosinophils 0.2 Absolute Basophils 0.1 Carbonic Acid HCO3/H2CO3 Ratio ABG pH ABG pCO2 ABG pO2 ABG HCO3 ABG O2 Saturation ABG Base Excess FiO2 Sodium 132.6 L Potassium 5.4 H Chloride 94 L Carbon Dioxide 12 L Anion Gap 27 H BUN 11 Creatinine 0.65 Est GFR ( Amer) > 60 Est GFR (Non-Af Amer) > 60 Glucose 578 H* Calcium 9.1 Total Bilirubin 0.8 AST 28 ALT 21 Alkaline Phosphatase 173 H Total Protein 7.2 Albumin 4.4 Serum HCG, Qual NEGATIVE Urine Color Urine Appearance Urine pH Ur Specific [place] Urine Protein Urine Glucose (UA) Urine Ketones Urine Blood Urine Nitrite Ur Leukocyte Esterase Urine WBC (Auto) Urine RBC (Auto) 08/20/18 08/20/18 14:30 17:05 WBC RBC Hgb Hct MCV MCH MCHC RDW Plt Count Seg Neutrophils % Lymphocytes % Monocytes % Eosinophils % Basophils % Absolute Neutrophils Absolute Lymphocytes Absolute Monocytes Absolute Eosinophils Absolute Basophils Carbonic Acid 0.64 L HCO3/H2CO3 Ratio 12:1 ABG pH 7.20 L* ABG pCO2 21.3 L ABG pO2 103.5 H ABG HCO3 8.1 L ABG O2 Saturation 96.7 ABG Base Excess -17.8 FiO2 RA Sodium Potassium Chloride Carbon Dioxide Anion Gap BUN Creatinine Est GFR ( Amer) Est GFR (Non-Af Amer) Glucose Calcium Total Bilirubin AST ALT Alkaline Phosphatase Total Protein Albumin Serum HCG, Qual Urine Color STRAW Urine Appearance SLIGHTLY-CLOUDY Urine pH 5.0 Ur Specific [place] 1.024 Urine Protein NEGATIVE Urine Glucose (UA) >=500 H Urine Ketones 80 H Urine Blood SMALL H Urine Nitrite NEGATIVE Ur Leukocyte Esterase TRACE H Urine WBC (Auto) 2 Urine RBC (Auto) 2 08/20/18 14:30 Creatine Kinase 41 Assessment and Plan - Diagnosis (1) DKA (diabetic ketoacidoses) Qualifiers: Diabetes mellitus type: type 1 Diabetes mellitus complication detail: without coma Qualified Code(s): E10.10 - Type 1 diabetes mellitus with ketoacidosis without coma Is this a current diagnosis for this admission?: Yes Plan: IMCU admission, volume resuscitation, insulin drip, monitor electrolytes and replace as needed. Advance diet as tolerated, switch to subcutaneous insulin once anion gap closes and patient is p.o. tolerant. (2) Metabolic acidosis Is this a current diagnosis for this admission?: Yes Plan: Due to #1. pH 7.20, CO2 21.3, PO2 103.5, bicarb 8.1. Bicarb deficit about 250-300. Continue treating the underlying DKA. Will give 50 mEq bicarb pushes every 4 hours followed by BMP. If worsening acidosis patient can be started on bicarb drip. (3) Right flank pain Is this a current diagnosis for this admission?: No Plan: History of right-sided nephrolithiasis. Afebrile, WBC within normal, UA negative. Pending CT abdomen. Supportive measurements. Follow-up CT abdomen. (4) Hyperkalemia Is this a current diagnosis for this admission?: No Plan: Due to #1. Admit to telemetry, continue treating DKA. BMP every 4 hours. No acute EKG changes. (5) Nausea and vomiting Qualifiers: Vomiting type: unspecified Vomiting Intractability: non-intractable Qualified Code(s): R11.2 - Nausea with vomiting, unspecified Is this a current diagnosis for this admission?: No Plan: Due to #1. Monitor volume status and electrolytes, replace as needed. Antiemetics.
[2018-08-20] MEDS ORDERED: HYDROMORPHONE HCL INJ/PF 2 MG/ML AMPULE IV PRN ×2 (18:37)
--- NOTE | 2018-08-20 18:49 | EKG REPORT ---
SEVERITY:- NORMAL ECG - SINUS RHYTHM : Confirmed by: Gurdeep Christensen MD 20-Aug-2018 18:48:41
[2018-08-20 19:06] LABS: BLOOD UREA NITROGEN 10 mg/dL (7-20); CALCIUM 8.3 mg/dL (8.4-10.2); CARBON DIOXIDE 11 mmol/L (22-30); CHLORIDE 99 mmol/L (98-107); POTASSIUM 5.1 mmol/L (3.6-5.0); SODIUM 136.6 mmol/L (137-145)
[2018-08-20 19:15] LABS: ANION GAP 27 (5-19); GLUCOSE 453 mg/dL (75-110)
--- NOTE | 2018-08-20 19:46 | RADIOLOGY REPORT (SQ) ---
EXAM DESCRIPTION: CT ABD/PELVIS NO ORAL OR IV COMPLETED DATE/TIME: 08/20/2018 6:09 pm REASON FOR STUDY: right flank pain COMPARISON: 07/11/2018 TECHNIQUE: CT scan of the abdomen and pelvis performed without intravenous or oral contrast. Images reviewed with lung, soft tissue, and bone windows. Reconstructed coronal and sagittal MPR images revi ewed. All images stored on PACS. All CT scanners at this facility use dose modulation, iterative reconstruction, and/or weight based d osing when appropriate to reduce radiation dose to as low as reasonably achievable (ALARA). [facility]: Dose Right [facility]: CareDose [facility]: Dose Right [facility]: Teradose 4D [facility]: Smart [employer] RADIATION DOSE: CT Rad equipment meets quality standard of care and radiation dose reduction techniq ues were employed. CTDIvol: 9.4 mGy. DLP: 505 mGy-cm.mGy. LIMITATIONS: None. FINDINGS: LOWER CHEST: No significant findings. No nodules or infiltrates. NON-CONTRASTED LIVER, SPLEEN, ADRENALS: Evaluation limited by lack of IV contrast. No identified sign ificant masses. PANCREAS: No masses. No peripancreatic inflammatory changes. GALLBLADDER: Surgically absent. RIGHT KIDNEY AND URETER: No suspicious masses. Assessment limited by lack of IV contrast. Tiny nono bstructing intrarenal calculi. No hydronephrosis or hydroureter. LEFT KIDNEY AND URETER: No suspicious masses. Assessment limited by lack of IV contrast. Intrarenal calculi including a 7 mm lower calyceal calculus. No hydronephrosis or hydroureter. AORTA AND RETROPERITONEUM: No aneurysm. No retroperitoneal masses or adenopathy. BOWEL AND PERITONEAL CAVITY: No obvious masses or inflammatory changes. No free fluid. APPENDIX: Not identified. PELVIS, BLADDER, AND ABDOMINAL WALL:No abnormal masses. No free fluid. Bladder normal. BONES: No significant findings. OTHER: No other significant finding. IMPRESSION: Nonobstructing intrarenal calculi. No acute findings in the abdomen or pelvis. COMMENT: Quality ID # [id number]: Final reports with documentation of one or more dose reduction techniques (e.g., Automated exposure control, adjustment of the mA and/or kV according to patient size, use of iterative reconstruction technique) TECHNICAL DOCUMENTATION: JOB ID: [id number] [employer]- All Rights Reserved Reading location - IP/workstation name: [email or web address]
[2018-08-20 19:48] LABS: URINE AMPHETAMINES SCREEN NEGATIVE; URINE BARBITURATES SCREEN NEGATIVE; URINE BENZODIAZEPINES SCREEN NEGATIVE; URINE COCAINE SCREEN NEGATIVE; URINE MARIJUANA (THC) SCREEN NEGATIVE; URINE METHADONE SCREEN NEGATIVE; URINE PHENCYCLIDINE SCREEN NEGATIVE
[2018-08-20] MEDS ORDERED: DEXTROSE 5%-WATER 1000 ML 1,000 ML with SODIUM BICARBONATE 150 MEQ IV PRN ×2 (22:15)
[2018-08-20] MEDS: FAMOTIDINE 20 MG TABLET PO SCH (22:16)
[2018-08-20] MEDS: HEPARIN SOD (PORCINE) 5,000 UNIT/ML 1 ML SYRINGE SUBCUT SCH (22:16)
[2018-08-21 00:47] LABS: BLOOD UREA NITROGEN 8 mg/dL (7-20); CALCIUM 7.7 mg/dL (8.4-10.2); CHLORIDE 103 mmol/L (98-107); GLUCOSE 140 mg/dL (75-110); SODIUM 135.9 mmol/L (137-145)
[2018-08-21 01:04] LABS: ANION GAP 11 (5-19)
[2018-08-21 01:47] LABS: CARBON DIOXIDE 22 mmol/L (22-30); POTASSIUM 3.4 mmol/L (3.6-5.0)
[2018-08-21] MEDS ORDERED: POTASSIUM CHLORIDE 10 MEQ CAPSULE.ER PO ONE (03:00)
[2018-08-21] MEDS: HEPARIN SOD (PORCINE) 5,000 UNIT/ML 1 ML SYRINGE SUBCUT SCH ×2 (06:07→14:24)
[2018-08-21 07:05] LABS: ABSOLUTE BASOPHILS # (AUTO) 0.1 10^3/uL (0.0-0.2); ABSOLUTE EOSINOPHILS # (AUTO) 0.2 10^3/uL (0.0-0.6); ABSOLUTE LYMPHOCYTES (AUTO) 2.3 10^3/uL (0.5-4.7); ABSOLUTE MONOCYTES (AUTO) 0.5 10^3/uL (0.1-1.4); ABSOLUTE NEUT (AUTO) 2.7 10^3/uL (1.7-8.2); BASOPHILS % (AUTO) 0.9 % (0-2); EOSINOPHILS % (AUTO) 3.7 % (0-6); HEMATOCRIT 37.7 % (36.0-47.0); LYMPHOCYTES % (AUTO) 39.8 % (13-45); MEAN CORPUSCULAR HEMOGLOBIN 30.7 pg (27.0-33.4); MEAN CORPUSCULAR HGB CONC 33.8 g/dL (32.0-36.0); MEAN CORPUSCULAR VOLUME 91 fl (80-97); MONOCYTES % (AUTO) 8.8 % (3-13); PLATELET COUNT 239 10^3/uL (150-450); RED BLOOD COUNT 4.16 10^6/uL (3.72-5.28); RED CELL DISTRIBUTION WIDTH 13.6 % (11.5-14.0); SEGMENTED NEUTROPHILS % (AUTO) 46.8 % (42-78); TOTAL CELLS COUNTED % (AUTO) 100 %; WHITE BLOOD COUNT 5.8 10^3/uL (4.0-10.5)
[2018-08-21 07:20] LABS: HEMOGLOBIN 12.8 g/dL (12.0-15.5)
[2018-08-21 07:24] LABS: ALANINE AMINOTRANSFERASE 25 U/L (9-52); ALBUMIN 2.9 g/dL (3.5-5.0); ALKALINE PHOSPHATASE 118 U/L (38-126); ANION GAP 15 (5-19); ASPARTATE AMINO TRANSFERASE 17 U/L (14-36); BILIRUBIN,DIRECT 0.3 mg/dL (0.0-0.4); BILIRUBIN,TOTAL 0.6 mg/dL (0.2-1.3); BLOOD UREA NITROGEN 8 mg/dL (7-20); CALCIUM 7.4 mg/dL (8.4-10.2); CARBON DIOXIDE 19 mmol/L (22-30); CHLORIDE 103 mmol/L (98-107); GLUCOSE 273 mg/dL (75-110); SODIUM 136.7 mmol/L (137-145)
[2018-08-21] MEDS: INSULIN LISPRO 100 UNIT/ML 3 ML VIAL SUBCUT SCH ×4 (08:06→11:35)
[2018-08-21] MEDS: POTASSIUM CHLORIDE 10 MEQ CAPSULE.ER PO SCH ×2 (08:09→11:36)
[2018-08-21] MEDS: OXYCODONE-ACETAMINOPHEN 5-325 MG TABLET PO PRN ×2 (08:12→14:26)
[2018-08-21] MEDS: FAMOTIDINE 20 MG TABLET PO SCH (09:44)
[2018-08-21] MEDS ORDERED: DOCUSATE SODIUM 100 MG CAPSULE PO SCH (10:00)
[2018-08-21] MEDS ORDERED: INSULIN GLARGINE,HUM.REC.ANLOG 1,000 UNIT/10 ML VIAL SUBCUT SCH (10:00)
[2018-08-21 13:01] LABS: ANION GAP 9 (5-19); BLOOD UREA NITROGEN 8 mg/dL (7-20); CALCIUM 8.1 mg/dL (8.4-10.2); CARBON DIOXIDE 21 mmol/L (22-30); CHLORIDE 105 mmol/L (98-107); GLUCOSE 174 mg/dL (75-110); POTASSIUM 3.8 mmol/L (3.6-5.0)
--- NOTE | 2018-08-21 15:36 | PDOC PROGRESS REPORT ---
Subjective Progress Note for:: 08/21/18 Subjective:: No adverse events overnight. No new complaints. Vital signs been stable. Since she was put back on what she said she takes at home in terms of insulin, her blood sugars have been in the upper 300s. Reason For Visit: DKA Physical Exam Vital Signs: Temp Pulse Resp BP Pulse Ox 97.6 F 92 16 104/56 L 96 08/21/18 11:18 08/21/18 14:00 08/21/18 11:18 08/21/18 11:18 08/21/18 11:18 Intake & Output 08/20/18 08/21/18 08/22/18 06:59 06:59 06:59 Intake Total 2335 750 Balance 2335 750 Weight 72.3 kg General appearance: PRESENT: no acute distress, cooperative, disheveled Teeth exam: PRESENT: edentulous Respiratory exam: PRESENT: clear to auscultation adriel, symmetrical, unlabored. ABSENT: accessory muscle use, chest wall tenderness, crackles, prolonged expir atory phas, rhonchi, tachypnea, wheezes Cardiovascular exam: PRESENT: RRR, +S1, +S2 Pulses: PRESENT: normal carotid pulses Vascular exam: PRESENT: normal capillary refill GI/Abdominal exam: PRESENT: normal bowel sounds, soft. ABSENT: distended, guarding, rebound, tenderness Extremities exam: ABSENT: clubbing, pedal edema Musculoskeletal exam: PRESENT: normal inspection. ABSENT: deformity Neurological exam: PRESENT: alert, awake, oriented to person, oriented to place, oriented to situation Psychiatric exam: PRESENT: appropriate affect, normal mood Skin exam: PRESENT: dry, warm Results Laboratory Results: 08/21/18 06:30 08/21/18 12:30 08/20/18 08/20/18 08/20/18 14:30 14:35 17:05 WBC RBC Hgb Hct MCV MCH MCHC RDW Plt Count Seg Neutrophils % Lymphocytes % Monocytes % Eosinophils % Basophils % Absolute Neutrophils Absolute Lymphocytes Absolute Monocytes Absolute Eosinophils Absolute Basophils Carbonic Acid 0.64 L HCO3/H2CO3 Ratio 12:1 ABG pH 7.20 L* ABG pCO2 21.3 L ABG pO2 103.5 H ABG HCO3 8.1 L ABG O2 Saturation 96.7 ABG Base Excess -17.8 FiO2 RA Sodium Potassium Chloride Carbon Dioxide Anion Gap BUN Creatinine Est GFR ( Amer) Est GFR (Non-Af Amer) Glucose Calcium Magnesium 1.7 Total Bilirubin AST ALT Alkaline Phosphatase Total Protein Albumin Urine Color STRAW Urine Appearance SLIGHTLY-CLOUDY Urine pH 5.0 Ur Specific [place] 1.024 Urine Protein NEGATIVE Urine Glucose (UA) >=500 H Urine Ketones 80 H Urine Blood SMALL H Urine Nitrite NEGATIVE Ur Leukocyte Esterase TRACE H Urine WBC (Auto) 2 Urine RBC (Auto) 2 08/20/18 08/21/18 08/21/18 18:30 00:20 06:30 WBC 5.8 RBC 4.16 Hgb 12.8 D Hct 37.7 MCV 91 MCH 30.7 MCHC 33.8 RDW 13.6 Plt Count 239 Seg Neutrophils % 46.8 Lymphocytes % 39.8 Monocytes % 8.8 Eosinophils % 3.7 Basophils % 0.9 Absolute Neutrophils 2.7 Absolute Lymphocytes 2.3 Absolute Monocytes 0.5 Absolute Eosinophils 0.2 Absolute Basophils 0.1 Carbonic Acid HCO3/H2CO3 Ratio ABG pH ABG pCO2 ABG pO2 ABG HCO3 ABG O2 Saturation ABG Base Excess FiO2 Sodium 136.6 L 135.9 L Potassium 5.1 H 3.4 L D Chloride 99 103 Carbon Dioxide 11 L 22 D Anion Gap 27 H 11 BUN 10 8 Creatinine 0.63 0.40 L Est GFR ( Amer) > 60 > 60 Est GFR (Non-Af Amer) > 60 > 60 Glucose 453 H* 140 H Calcium 8.3 L 7.7 L Magnesium Total Bilirubin AST ALT Alkaline Phosphatase Total Protein Albumin Urine Color Urine Appearance Urine pH Ur Specific [place] Urine Protein Urine Glucose (UA) Urine Ketones Urine Blood Urine Nitrite Ur Leukocyte Esterase Urine WBC (Auto) Urine RBC (Auto) 08/21/18 08/21/18 06:30 12:30 WBC RBC Hgb Hct MCV MCH MCHC RDW Plt Count Seg Neutrophils % Lymphocytes % Monocytes % Eosinophils % Basophils % Absolute Neutrophils Absolute Lymphocytes Absolute Monocytes Absolute Eosinophils Absolute Basophils Carbonic Acid HCO3/H2CO3 Ratio ABG pH ABG pCO2 ABG pO2 ABG HCO3 ABG O2 Saturation ABG Base Excess FiO2 Sodium 136.7 L 135.0 L Potassium 4.0 3.8 Chloride 103 105 Carbon Dioxide 19 L 21 L Anion Gap 15 9 BUN 8 8 Creatinine 0.38 L 0.42 L Est GFR ( Amer) > 60 > 60 Est GFR (Non-Af Amer) > 60 > 60 Glucose 273 H 174 H Calcium 7.4 L 8.1 L Magnesium 1.8 Total Bilirubin 0.6 AST 17 ALT 25 Alkaline Phosphatase 118 Total Protein 5.0 L Albumin 2.9 L Urine Color Urine Appearance Urine pH Ur Specific [place] Urine Protein Urine Glucose (UA) Urine Ketones Urine Blood Urine Nitrite Ur Leukocyte Esterase Urine WBC (Auto) Urine RBC (Auto) 08/20/18 14:30 Creatine Kinase 41 Impressions: Abdomen/Pelvis CT 08/20/18 16:59 IMPRESSION: Nonobstructing intrarenal calculi. No acute findings in the abdom en or pelvis. Assessment and Plan - Diagnosis (1) DKA (diabetic ketoacidoses) Qualifiers: Diabetes mellitus type: type 1 Diabetes mellitus complication detail: without coma Qualified Code(s): E10.10 - Type 1 diabetes mellitus with ketoacidosis without coma Is this a current diagnosis for this admission?: Yes Plan: She is been put back on a sliding scale along with some Lantus. She said that she buys her insulin [id number], so we may be able to transition her to [facility] at discharge. Were going to try to find an acceptable regimen to control her glucose well enough before we send her home. - Time Time Spent with patient: 15-24 minutes
[2018-08-21 16:07] VITALS: BP 103/57
--- NOTE | 2018-08-21 17:50 | Left Against Medical Advice ---
Against Medical Advice Admission Date/Time: 08/20/18 17:28 Primary Care Provider: DENVER STAFFORD PA-C Date of Patient Emigration: 08/21/18 - Diagnosis: (1) DKA (diabetic ketoacidoses) Is this a current diagnosis for this admission?: Yes - Summary: Summary: Please see Admission and Progress Notes as well. FRDIA ALMANZA is a 27 F, who LEFT AGAINST MEDICAL ADVICE. The Patient was admitted on 08/20/18 17:28.
== END 2018-08-21 17:00 | disposition left against medical advice (07) ==
LOC: ER 13:39 → INTOOBSV 17:28 → EH 17:28 → 3W 20:48
PROVIDERS: ADMIT Internal Medicine; ATTEND Internal Medicine
DX: E10.10 Type 1 diabetes mellitus with ketoacidosis without coma (principal); I10 Essential (primary) hypertension; R00.0 Tachycardia, unspecified; K21.9 Gastro-esophageal reflux disease without esophagitis; F17.200 Nicotine dependence, unspecified, uncomplicated; R10.9 Unspecified abdominal pain; E87.5 Hyperkalemia; R11.2 Nausea with vomiting, unspecified; Z59.9 Problem related to housing and economic circumstances, unspecified; Z88.6 Allergy status to analgesic agent; Z87.442 Personal history of urinary calculi
CPT/HCPCS: 93005; 99291; 96360; 96361; 36415 ×2; 82962 ×2; 82803; 82550; 83735 ×2; 84703; 85025 ×2; 80048; 80053; 81001; 80307; 83036; 74176; 93010; G0378 ×3; J1815 ×3; S0119; J2550; J3490 ×2; J2405; J7060; J7050; J7030 ×2

== ENCOUNTER 2018-08-30 15:25 | Emergency (ER) | payer SELFPAY ==
[2018-08-30 15:30] VITALS: BP 134/77
[2018-08-30] MEDS ORDERED: ACETAMINOPHEN 325 MG TABLET PO ONE (16:24)
--- NOTE | 2018-08-30 16:28 | ER Document Report ---
ED Medical Screen (RME) - General Chief Complaint: Flank Pain Stated Complaint: FLANK PAIN Time Seen by Provider: 08/30/18 16:22 Primary Care Provider: DENVER STAFFORD PA-C [Primary Care Provider] - Follow up as needed TRAVEL OUTSIDE OF THE [place] IN LAST 30 DAYS: No - HPI Notes: 08/30/18 16:25 Patient is a 27-year-old female with a history of insulin-dependent diabetes and kidney stones who presents complaining of right flank pain over the past few days that will occasionally radiate around to the front of her abdomen. Patient has had this flank pain recurrently over the past several weeks with previous CT scans showing intrarenal nonobstructing stones. Pt states that pain is the same as before. She is able to eat and drink without difficulty. She is urinating normally and having normal bowel movements. Patient was recently admitted for DKA. Patient states that she started another insulin and has not had as many complications that she did before. Surgical history of cholecystectomy. Denies ROSAS, fever, neck pain, URI, CP, SOB, dysuria, or rash. I have treated and performed a rapid initial assessment of this patient. A comprehensive ED assessment and evaluation of the patient, analysis of test results and completion of medical decision making process will be conducted by additional ED providers. We will start with ultrasound and basic work-up at this time and avoid CT imaging unless directed otherwise by the main side provider due to recent CT for same pain. PHYSICAL EXAMINATION: GENERAL: Well-appearing, well-nourished and in no acute distress. A&Ox4. Answers questions appropriately. LUNGS: Breath sounds clear to auscultation bilaterally and equal. No wheezes rales or rhonchi. HEART: Regular rate and rhythm without murmurs, rubs, gallops. ABDOMEN: Soft, nondistended abdomen. No guarding, no rebound. Normal bowel sounds present. + Mild right abdominal tenderness (cannot elicit thorough abd exam w/o bed, however). Back: + tenderness to light palpation of the right mid back/flank area. No foot drop. Extremities: No cyanosis, clubbing, or edema b/l. NEUROLOGICAL: Normal speech, normal gait. PSYCH: Normal mood, normal affect. - Related Data Allergies/Adverse Reactions: aspirin Allergy (Mild, Verified 08/30/18 15:25) Hives ibuprofen Allergy (Mild, Verified 08/30/18 15:25) Hives tramadol Allergy (Mild, Verified 08/30/18 15:25) Hives ketorolac [From Toradol] Allergy (Verified 08/30/18 15:25) Past Medical History - Social History Family history: Reviewed & Not Pertinent - Past Medical History Cardiac Medical History: Denies: Hx Congestive Heart Failure, Hx DVT, Hx Heart Attack, Hx Hypercholesterolemia, Hx Hypertension, Hx Pulmonary Embolism Pulmonary Medical History: Reports: Hx Bronchitis Denies: Hx Asthma, Hx COPD Neurological Medical History: Denies: Hx Seizures Endocrine Medical History: Reports: Hx Diabetes Mellitus Type 1, Hx Diabetes Mellitus Type 2. Denies: Hx Hyperthyroidism, Hx Hypothyroidism Renal/ Medical History: Reports: Hx Kidney Stones, Hx Ovarian Cysts. Denies: Hx Peritoneal Dialysis GI Medical History: Reports: Hx Gastroesophageal Reflux Disease. Denies: Hx Cirrhosis, Hx Hepatitis Musculoskeltal Medical History: Denies Hx Arthritis, Reports Hx Musculoskeletal Deformity, Reports Hx Musculoskeletal Trauma Skin Medical History: Denies Hx Eczema, Denies Hx Psoriasis Psychiatric Medical History: Reports: Hx Anxiety Denies: Hx Depression Infectious Medical History: Denies: Hx Hepatitis Past Surgical History: Reports: Hx Cholecystectomy, Hx Oral Surgery - Dental surgery, Hx Tubal Ligation, Other - Incision and drainage of multiple perirectal abscesses - Immunizations Hx Diphtheria, Pertussis, Tetanus Vaccination: Yes - 2016 History of Influenza Vaccine for 12/2016 - 05/2017 Season: Refused Physical Exam - Vital signs Vitals: Temp Pulse Resp BP Pulse Ox 98.3 F 114 H 18 134/77 H 96 08/30/18 15:30 08/30/18 15:30 08/30/18 15:30 08/30/18 15:30 08/30/18 15:30 Course - Vital Signs Vital signs: Temp Pulse Resp BP Pulse Ox 98.3 F 114 H 18 134/77 H 96 08/30/18 15:30 08/30/18 15:30 08/30/18 15:30 08/30/18 15:30 08/30/18 15:30 Doctor's Discharge - Discharge Referrals: DENVER STAFFORD PA-C [Primary Care Provider] - Follow up as needed
[2018-08-30 16:34] LABS: APPEARANCE,URINE CLEAR; BILIRUBIN,URINE NEGATIVE (NEGATIVE); COLOR,URINE COLORLESS; GLUCOSE, URINE >=500 mg/dL (NEGATIVE); KETONES,URINE 20 mg/dL (NEGATIVE); LEUKOCYTE ESTERASE,URINE NEGATIVE (NEGATIVE); NITRITE,URINE NEGATIVE (NEGATIVE); PROTEIN,URINE NEGATIVE (NEGATIVE); UROBILINOGEN,URINE NEGATIVE mg/dL (<2.0)
[2018-08-30 16:58] LABS: ABSOLUTE BASOPHILS # (AUTO) 0.1 10^3/uL (0.0-0.2); ABSOLUTE EOSINOPHILS # (AUTO) 0.2 10^3/uL (0.0-0.6); ABSOLUTE LYMPHOCYTES (AUTO) 2.5 10^3/uL (0.5-4.7); ABSOLUTE MONOCYTES (AUTO) 0.5 10^3/uL (0.1-1.4); ABSOLUTE NEUT (AUTO) 6.7 10^3/uL (1.7-8.2); BASOPHILS % (AUTO) 1.2 % (0-2); EOSINOPHILS % (AUTO) 1.6 % (0-6); HEMATOCRIT 41.9 % (36.0-47.0); HEMOGLOBIN 14.3 g/dL (12.0-15.5); LYMPHOCYTES % (AUTO) 24.5 % (13-45); MEAN CORPUSCULAR VOLUME 91 fl (80-97); MONOCYTES % (AUTO) 5.4 % (3-13); PLATELET COUNT 323 10^3/uL (150-450); RED BLOOD COUNT 4.61 10^6/uL (3.72-5.28); RED CELL DISTRIBUTION WIDTH 13.6 % (11.5-14.0); SEGMENTED NEUTROPHILS % (AUTO) 67.3 % (42-78); TOTAL CELLS COUNTED % (AUTO) 100 %
[2018-08-30 17:13] LABS: ALANINE AMINOTRANSFERASE 13 U/L (9-52); ALBUMIN 4.5 g/dL (3.5-5.0); ALKALINE PHOSPHATASE 126 U/L (38-126); ASPARTATE AMINO TRANSFERASE 21 U/L (14-36); BILIRUBIN,DIRECT 0.3 mg/dL (0.0-0.4); BILIRUBIN,TOTAL 0.6 mg/dL (0.2-1.3); BLOOD UREA NITROGEN 20 mg/dL (7-20); CALCIUM 10.3 mg/dL (8.4-10.2); CARBON DIOXIDE 21 mmol/L (22-30); CHLORIDE 92 mmol/L (98-107); TOTAL PROTEIN 7.1 g/dL (6.3-8.2)
[2018-08-30 17:18] LABS: SODIUM 132.5 mmol/L (137-145)
[2018-08-30 17:20] LABS: ANION GAP 20 (5-19)
[2018-08-30 17:22] LABS: GLUCOSE 519 mg/dL (75-110)
== END 2018-08-30 18:54 | disposition left against medical advice (07) ==
LOC: ER 15:25
DX: R10.9 Unspecified abdominal pain (principal); E11.9 Type 2 diabetes mellitus without complications; Z79.84 Long term (current) use of oral hypoglycemic drugs; Z87.442 Personal history of urinary calculi; Z90.49 Acquired absence of other specified parts of digestive tract; Z98.51 Tubal ligation status; Z88.6 Allergy status to analgesic agent
CPT/HCPCS: 36415; 80053; 81001; 81025; 82962; 85025; 99281

== ENCOUNTER 2018-08-31 18:20 | Emergency (ER) | payer SELFPAY ==
[2018-08-31] MEDS ORDERED: RINGERS SOLUTION,LACTATED 2,000 ML IV ONE (19:28)
[2018-08-31] MEDS ORDERED: ONDANSETRON HCL INJ/PF 4 MG/2 ML SDV IV ONE (19:28)
--- NOTE | 2018-08-31 19:30 | ER Document Report ---
ED Medical Screen (RME) - General Chief Complaint: High Blood Sugar Stated Complaint: DIZZINESS Time Seen by Provider: 08/31/18 19:27 Primary Care Provider: DENVER STAFFORD PA-C [Primary Care Provider] - Follow up as needed Notes: Patient is a 27-year-old female history of type 1 diabetes and DKA presents to the emergency department for elevated sugars. States she is been very nauseous, lightheaded, dizzy. States she has not been eating like she is supposed to. Patient states prior to arrival to the emergency department her sugar was 317. GENERAL: Alert, interacts well. No acute distress. HEART: Tachycardic rate and rhythm. No murmur ABDOMEN: Soft, non-tender. Non-distended. Bowel sounds present in all 4 quadrants. I have greeted and performed a rapid initial assessment of this patient. A comprehensive ED assessment and evaluation of the patient, analysis of test results and completion of the medical decision making process will be conducted by additional ED providers. I have specifically instructed the patient or family members with the patient to immediately return to any nursing staff should anything change in the patient's condition or with their chief complaint. This medical record was dictated with voice recognizing software. There may be grammatical, syntax errors that are unintended. TRAVEL OUTSIDE OF THE [place] IN LAST 30 DAYS: No - Related Data Allergies/Adverse Reactions: aspirin Allergy (Mild, Verified 08/31/18 18:57) Hives ibuprofen Allergy (Mild, Verified 08/31/18 18:57) Hives tramadol Allergy (Mild, Verified 08/31/18 18:57) Hives ketorolac [From Toradol] Allergy (Verified 08/31/18 18:57) Past Medical History - Social History Family history: Reviewed & Not Pertinent - Past Medical History Cardiac Medical History: Denies: Hx Congestive Heart Failure, Hx DVT, Hx Heart Attack, Hx Hyperc holesterolemia, Hx Hypertension, Hx Pulmonary Embolism Pulmonary Medical History: Reports: Hx Bronchitis Denies: Hx Asthma, Hx COPD Neurological Medical History: Denies: Hx Seizures Endocrine Medical History: Reports: Hx Diabetes Mellitus Type 1, Hx Diabetes Mellitus Type 2. Denies: Hx Hyperthyroidism, Hx Hypothyroidism Renal/ Medical History: Reports: Hx Kidney Stones, Hx Ovarian Cysts. Denies: Hx Peritoneal Dialysis GI Medical History: Reports: Hx Gastroesophageal Reflux Disease. Denies: Hx Cirrhosis, Hx Hepatitis Musculoskeltal Medical History: Denies Hx Arthritis, Reports Hx Musculoskeletal Deformity, Reports Hx Musculoskeletal Trauma Skin Medical History: Denies Hx Eczema, Denies Hx Psoriasis Psychiatric Medical History: Reports: Hx Anxiety Denies: Hx Depression Infectious Medical History: Denies: Hx Hepatitis Past Surgical History: Reports: Hx Cholecystectomy, Hx Oral Surgery - Dental surgery, Hx Tubal Ligation, Other - Incision and drainage of multiple perirectal abscesses - Immunizations Hx Diphtheria, Pertussis, Tetanus Vaccination: Yes - 2016 History of Influenza Vaccine for 12/2016 - 05/2017 Season: Refused Physical Exam - Vital signs Vitals: Temp Pulse Resp BP Pulse Ox 98.9 F 129 H 20 102/80 98 08/31/18 18:57 08/31/18 18:57 08/31/18 18:57 08/31/18 18:57 08/31/18 18:57 Course - Vital Signs Vital signs: Temp Pulse Resp BP Pulse Ox 98.9 F 129 H 20 102/80 98 08/31/18 18:57 08/31/18 18:57 08/31/18 18:57 08/31/18 18:57 08/31/18 18:57 Doctor's Discharge - Discharge Referrals: DENVER STAFFORD PA-C [Primary Care Provider] - Follow up as needed
[2018-08-31 20:03] LABS: VENOUS BLOOD BASE EXCESS -3.4 mmol/L; VENOUS BLOOD HCO3 22.7 mmol/L (20-32); VENOUS BLOOD PCO2 44.2 mmHg (35-63); VENOUS BLOOD PH 7.33 (7.30-7.42)
[2018-08-31 20:04] LABS: ABSOLUTE BASOPHILS # (AUTO) 0.1 10^3/uL (0.0-0.2); ABSOLUTE EOSINOPHILS # (AUTO) 0.2 10^3/uL (0.0-0.6); ABSOLUTE LYMPHOCYTES (AUTO) 2.3 10^3/uL (0.5-4.7); ABSOLUTE MONOCYTES (AUTO) 0.5 10^3/uL (0.1-1.4); ABSOLUTE NEUT (AUTO) 4.3 10^3/uL (1.7-8.2); BASOPHILS % (AUTO) 1.5 % (0-2); EOSINOPHILS % (AUTO) 2.5 % (0-6); HEMATOCRIT 45.1 % (36.0-47.0); HEMOGLOBIN 15.1 g/dL (12.0-15.5); LYMPHOCYTES % (AUTO) 31.4 % (13-45); MEAN CORPUSCULAR HEMOGLOBIN 30.7 pg (27.0-33.4); MEAN CORPUSCULAR HGB CONC 33.5 g/dL (32.0-36.0); MEAN CORPUSCULAR VOLUME 92 fl (80-97); MONOCYTES % (AUTO) 6.7 % (3-13); PLATELET COUNT 339 10^3/uL (150-450); RED BLOOD COUNT 4.93 10^6/uL (3.72-5.28); SEGMENTED NEUTROPHILS % (AUTO) 57.9 % (42-78); TOTAL CELLS COUNTED % (AUTO) 100 %; WHITE BLOOD COUNT 7.5 10^3/uL (4.0-10.5)
[2018-08-31 20:09] LABS: APPEARANCE,URINE CLOUDY; BILIRUBIN,URINE NEGATIVE (NEGATIVE); COLOR,URINE YELLOW; GLUCOSE, URINE >=500 mg/dL (NEGATIVE); KETONES,URINE 80 mg/dL (NEGATIVE); LEUKOCYTE ESTERASE,URINE MODERATE (NEGATIVE); NITRITE,URINE NEGATIVE (NEGATIVE); PROTEIN,URINE NEGATIVE (NEGATIVE); URINE SPECIFIC GRAVITY 1.027; UROBILINOGEN,URINE NEGATIVE mg/dL (<2.0)
[2018-08-31] MEDS ORDERED: HYDROMORPHONE HCL INJ/PF 2 MG/ML AMPULE IV ONE (20:18)
[2018-08-31] MEDS ORDERED: NORMAL SALINE 1000 ML 1,000 ML IV ONE (20:18)
[2018-08-31 20:21] LABS: ALANINE AMINOTRANSFERASE 23 U/L (9-52); ALBUMIN 4.4 g/dL (3.5-5.0); ALKALINE PHOSPHATASE 139 U/L (38-126); ANION GAP 17 (5-19); ASPARTATE AMINO TRANSFERASE 24 U/L (14-36); BILIRUBIN,DIRECT 0.4 mg/dL (0.0-0.4); BILIRUBIN,TOTAL 0.7 mg/dL (0.2-1.3); BLOOD UREA NITROGEN 18 mg/dL (7-20); CALCIUM 9.8 mg/dL (8.4-10.2); CARBON DIOXIDE 22 mmol/L (22-30); CHLORIDE 93 mmol/L (98-107); POTASSIUM 4.8 mmol/L (3.6-5.0); SODIUM 132.4 mmol/L (137-145); TOTAL PROTEIN 7.2 g/dL (6.3-8.2)
--- NOTE | 2018-08-31 20:22 | ER Document Report ---
ED General - General Chief Complaint: High Blood Sugar Stated Complaint: DIZZINESS Time Seen by Provider: 08/31/18 19:27 Primary Care Provider: DENVER STAFFORD PA-C [Primary Care Provider] - Follow up as needed Notes: Patient is a 27 year old female that comes to the emergency department for chief complaint of right flank pain, nausea, and developing vomiting earlier this morning. She is a history of type 1 diabetes, she has had DKA frequently in the past, she also reports a history of kidney stones and feels she is passing one. She denies fever/chills. She denies dysuria. She denies any other complaints including abdominal pain. TRAVEL OUTSIDE OF THE [place] IN LAST 30 DAYS: No - Related Data Allergies/Adverse Reactions: aspirin Allergy (Mild, Verified 08/31/18 18:57) Hives ibuprofen Allergy (Mild, Verified 08/31/18 18:57) Hives tramadol Allergy (Mild, Verified 08/31/18 18:57) Hives ketorolac [From Toradol] Allergy (Verified 08/31/18 18:57) Past Medical History - Social History Smoking Status: Current Every Day Smoker Chew tobacco use (# tins/day): No Frequency of alcohol use: Occasional Drug Abuse: None Family History: Reviewed & Not Pertinent, Malignancy, Thyroid Disfunction - Thyroid cancer Patient has suicidal ideation: No Patient has homicidal ideation: No - Past Medical History Cardiac Medical History: Denies: Hx Congestive Heart Failure, Hx DVT, Hx Heart Attack, Hx Hypercholesterolemia, Hx Hypertension, Hx Pulmonary Embolism Pulmonary Medical History: Reports: Hx Bronchitis Denies: Hx Asthma, Hx COPD Neurological Medical History: Denies: Hx Seizures Endocrine Medical History: Reports: Hx Diabetes Mellitus Type 1, Hx Diabetes Mellitus Type 2. Denies: Hx Hyperthyroidism, Hx Hypothyroidism Renal/ Medical History: Reports: Hx Kidney Stones, Hx Ovarian Cysts. Denies: Hx Peritoneal Dialysis GI Medical History: Reports: Hx Gastroesophageal Reflux Disease. Denies: Hx Cirrhosis, Hx Hepatitis Musculoskeletal Medical History: Denies Hx Arthritis, Reports Hx Musculoskeletal Deformity, Reports Hx Musculoskeletal Trauma Skin Medical History: Denies Hx Eczema, Denies Hx Psoriasis Psychiatric Medical History: Reports: Hx Anxiety Denies: Hx Depression Infectious Medical History: Denies: Hx Hepatitis Past Surgical History: Reports: Hx Cholecystectomy, Hx Oral Surgery - Dental surgery, Hx Tubal Ligation, Other - Incision and drainage of multiple perirectal abscesses - Immunizations Hx Diphtheria, Pertussis, Tetanus Vaccination: Yes - 2015 Physical Exam - Vital signs Vitals: Temp Pulse Resp BP Pulse Ox 98.9 F 129 H 20 102/80 98 08/31/18 18:57 08/31/18 18:57 08/31/18 18:57 08/31/18 18:57 08/31/18 18:57 - Notes Notes: GENERAL: Alert, interacts well. No acute distress. HEAD: Normocephalic, atraumatic. EYES: Pupils equal, round, and reactive to light. Extraocular movements intact. ENT: Oral mucosa moist, tongue midline. Oropharynx unremarkable. Airway patent. Nares patent, no nasal septal hematoma, TM's intact. NECK: Full range of motion. Supple. Trachea midline. LUNGS: Clear to auscultation bilaterally, no wheezes, rales, or rhonchi. No respiratory distress. HEART: Borderline tachycardia, normal rhythm, no murmur ABDOMEN: Soft, non-tender. Non-distended. Bowel sounds present in all 4 quadrants. GENITOURINARY: Deferred EXTREMITIES: Moves all 4 extremities spontaneously. No edema, normal radial and dorsalis pedis pulses bilaterally. No cyanosis. BACK: no cervical, thoracic, lumbar midline tenderness. No saddle anesthesia, normal distal neurovascular exam. Moves all extremities in full range of motion. NEUROLOGICAL: Alert and oriented x3. Normal speech. Cranial nerves II through XII grossly intact. PSYCH: Normal affect, normal mood. SKIN: Warm, dry, normal turgor. No rashes or lesions noted. Course - Re-evaluation Re-evalutation: Patient is actually very well-appearing, smiling, conversational. Soft benign abdomen. Unremarkable back exam. Unremarkable vital signs except for tachycardia. Patient was given IV fluids, pain medication. After this her tachycardia resolved. CBC unremarkable, chemistry shows hyperglycemia but no acidosis, normal anion gap. Venous blood gas does not show acidosis either. There are some ketones in the urine but patient was given IV fluids. Evaluation is not consistent with DKA. Urinalysis shows some white blood cells but equally as many squamous epithelials. Culture was placed. Ultrasound does not show stones or hydronephrosis. Patient does not appear to be passing a kidney stone. It is possible she did previously, I did discuss patient's ultrasound, lab work-up, patient states supplies and satisfaction that she is not currently in DKA. She was provided with insulin, blood glucose was down trended. Patient states she just bought a new type of insulin, she will be taking this, she has a good close follow-up, I discussed return precautions, patient stable at time of discharge, she is going home with her significant other. Patient states satisfaction agreement. - Vital Signs Vital signs: Temp Pulse Resp BP Pulse Ox 98.9 F 129 H 19 112/82 99 08/31/18 18:57 08/31/18 18:57 08/31/18 23:54 08/31/18 23:54 08/31/18 23:54 - Laboratory Result Diagrams: 08/31/18 19:53 08/31/18 19:53 Laboratory results interpreted by me: 08/31/18 08/31/18 08/31/18 19:53 19:53 23:00 Sodium 132.4 L Chloride 93 L Glucose 487 H* POC Glucose 355 H Alkaline Phosphatase 139 H Urine Glucose (UA) >=500 H Urine Ketones 80 H Ur Leukocyte Esterase MODERATE H 09/01/18 00:05 Sodium Chloride Glucose POC Glucose 201 H Alkaline Phosphatase Urine Glucose (UA) Urine Ketones Ur Leukocyte Esterase Discharge - Discharge Clinical Impression: Dehydration, Hyperglycemia Vomiting Qualifiers: Vomiting type: unspecified Vomiting Intractability: non-intractable Nausea presence: unspecified Qualified Code(s): R11.10 - Vomiting, unspecified Condition: Stable Disposition: HOME, SELF-CARE Additional Instructions: Your ultrasound does not show kidney stones, swelling of the kidney, or concerning finding at this time. Continue insulin, hydration, primary care follow-up. Return if you worsen including return to nausea/vomiting, fever/chills, severe worsening pain, or any other concerning or worsening symptoms. Prescriptions: Ondansetron [Zofran Odt 4 mg Tablet] 1 - 2 tab PO Q4H PRN #15 tab.rapdis PRN Reason: For Nausea/Vomiting Referrals: DENVER STAFFORD PA-C [Primary Care Provider] - Follow up as needed
[2018-08-31 20:30] LABS: GLUCOSE 487 mg/dL (75-110)
--- NOTE | 2018-08-31 21:21 | RADIOLOGY REPORT (SQ) ---
EXAM DESCRIPTION: US RETROPERITONEUM LIMITED COMPLETED DATE/TME: 08/31/2018 20:16 CLINICAL HISTORY: 27 years, Female, right flank pain, vomiting COMPARISON: CT 08/20/2018 TECHNIQUE: Transverse longitudinal sonographic images of the kidneys and urinary bladder LIMITATIONS: None. FINDINGS: The right kidney measures 12.4 x 5.2 x 4.9 cm, the left kidney 11.9 x 5.4 x 5.7 cm. Tiny simple 12 x 10 mm right renal cyst. Tiny nonobstructing renal calculi described on prior CT are not appreciated on the ultrasound. No discrete urinary tract calculus or hydronephrosis. No perinephric fluid collection. Cortical medullary differentiation preserved bilaterally. Urinary bladder is grossly unremarkable. Bilateral ureteral jets. IMPRESSION: Nonobstructing renal calculi seen on prior CT are not appreciated on the ultrasound. Simple appearing right renal cyst. Remainder unremarkable copyright 2010 [employer]- All Rights Reserved
[2018-08-31] MEDS ORDERED: INSULIN REG, HUMAN 100 UNIT/ML 3 ML VIAL (PYX) SUBCUT ONE (21:50)
[2018-08-31] MEDS ORDERED: OXYCODONE-ACETAMINOPHEN 5-325 MG TABLET PO ONE (23:02)
[2018-08-31 23:56] VITALS: BP 112/82
== END 2018-09-01 00:12 | disposition home or self-care (01) ==
LOC: ER 18:20
DX: E10.65 Type 1 diabetes mellitus with hyperglycemia (principal); E86.0 Dehydration; R11.10 Vomiting, unspecified; R42 Dizziness and giddiness; R10.9 Unspecified abdominal pain; R00.0 Tachycardia, unspecified; Z87.442 Personal history of urinary calculi; Z90.49 Acquired absence of other specified parts of digestive tract; Z98.51 Tubal ligation status; Z88.6 Allergy status to analgesic agent
CPT/HCPCS: 99284; 96361; 96374; 96375; 36415; 87086; 82962; 85025; 81025; 80053; 81001; 82803; 76775; J1170; J1815; J2405; J7030; J7120